=== PATIENT | female | born 1995 | race Caucasian/White ===

== ENCOUNTER 2023-04-12 11:39 | Outpatient (OUT) | payer OTHER, SELFPAY ==
[2023-04-12 12:21] LABS: Thyroid Stimulating Hormone 0.627 uIU/mL (0.358-3.740)
== END 2023-04-12 11:40 ==
LOC: LAB 11:42
PROVIDERS: PCP Family Medicine; Visit Provider Family Medicine
DX: R53.83 Other fatigue (principal)
CPT/HCPCS: 36415; 84443

== ENCOUNTER 2023-04-26 12:12 | Emergency (ER) | payer OTHER, SELFPAY ==
[2023-04-26] VITALS (17 sets, daily range): BP systolic 106–156; BP diastolic 61–99; PULSE 54–75; RESP 10–25; TEMP 36.6; O2SAT 99; BMI 43.3
--- NOTE | 2023-04-26 12:50 | ECG_ITS ---
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
--- NOTE | 2023-04-26 12:51 | ED_ITS ---
HPI - General Adult General Chief complaint: Chest Pain Stated complaint: HYPERTENSION Time Seen by Provider: 04/26/23 12:44 Source: patient Mode of arrival: walk-in Limitations: no limitations History of Present Illness HPI narrative: 27-year-old female presents for not feeling well. She's been on at approximately two weeks and her blood pressure has been running high for the past two days. She has a headache and has been dry heaving. She's had a little bit of diarrhea as well. She's been on Adipex before and had to be taken off of it. No fever or chest pain or palpitations. Related Data Home Medications Medication Instructions Recorded Confirmed sertraline 50 mg tablet (Zoloft) 25 mg PO DAILY 04/26/23 04/26/23 Allergies Allergy/AdvReac Type Severity Reaction Status Date / Time naproxen [From Aleve] Allergy Severe Verified 04/26/23 12:27 latex Allergy Verified 04/26/23 12:27 Review of Systems ROS Narrative A ten point review of systems is negative except as noted above. Constitutional Reports: fatigue PFSH PFSH Social History Smoking status: Current some day smoker Exam Narrative Exam Narrative: Nurses note and vital signs reviewed and patient is not hypoxic. General: The patient appears well and in no apparent distress. Patient is resting comfortably on cart. Skin: Warm, dry, no pallor noted. There is no rash noted. Head: Normocephalic, atraumatic Eye: Normal conjunctiva, no drainage Ears, Nose, Mouth, and Throat: oral mucosa is moist. Nares patent. Cardiovascular: Regular Rate and Rhythm Respiratory: Patient is in no distress, no accessory muscle use, lungs are clear to auscultation, no wheezing, rales or rhonchi Back: non-tender GI: no tenderness to palpation, no masses appreciated. No rebound, guarding, or rigidity noted. obese. Musculoskeletal: The patient has no evidence of calf tenderness, no pitting edema, symmetrical pulses noted bilaterally Neurological: A&O x4, normal speech Psychiatric: Cooperative Constitutional Vital Signs - 24 hr 04/26/23 12:23 04/26/23 13:02 04/26/23 13:10 Temperature 97.9 F Pulse Rate 62 58 L Pulse Rate [Monitor] 75 Respiratory Rate 16 12 17 Blood Pressure Blood Pressure [Right Arm] 139/99 H Pulse Oximetry 99 Oxygen Delivery Method Room Air 04/26/23 13:15 04/26/23 13:16 04/26/23 13:31 Temperature Pulse Rate 59 L 59 L 54 L Pulse Rate [Monitor] Respiratory Rate 17 10 L 12 Blood Pressure 106/61 131/83 H Blood Pressure [Right Arm] Pulse Oximetry Oxygen Delivery Method 04/26/23 13:48 04/26/23 13:50 04/26/23 13:54 Temperature Pulse Rate 69 59 L 60 Pulse Rate [Monitor] Respiratory Rate 15 18 13 Blood Pressure 137/79 H Blood Pressure [Right Arm] Pulse Oximetry Oxygen Delivery Method 04/26/23 13:54 04/26/23 13:54 04/26/23 14:01 Temperature Pulse Rate 62 60 54 L Pulse Rate [Monitor] Respiratory Rate 17 15 15 Blood Pressure 137/79 H 134/74 H Blood Pressure [Right Arm] Pulse Oximetry Oxygen Delivery Method 04/26/23 14:16 04/26/23 14:31 04/26/23 14:37 Temperature Pulse Rate 61 64 58 L Pulse Rate [Monitor] Respiratory Rate 17 20 25 H Blood Pressure 135/79 H 126/91 H 156/95 H Blood Pressure [Right Arm] Pulse Oximetry Oxygen Delivery Method 04/26/23 14:46 04/26/23 15:01 Temperature Pulse Rate 64 57 L Pulse Rate [Monitor] Respiratory Rate 18 14 Blood Pressure 126/77 H 144/89 H Blood Pressure [Right Arm] Pulse Oximetry Oxygen Delivery Method Course Vital Signs Vital signs: Vital Signs Temperature 97.9 F 04/26/23 12:23 Pulse Rate 75 04/26/23 12:23 Respiratory Rate 16 04/26/23 12:23 Blood Pressure 139/99 H 04/26/23 12:23 Pulse Oximetry 99 04/26/23 12:23 Oxygen Delivery Method Room Air 04/26/23 12:23 Temperature 97.9 F 04/26/23 12:23 Pulse Rate 57 L 04/26/23 15:01 Respiratory Rate 14 04/26/23 15:01 Blood Pressure 144/89 H 04/26/23 15:01 Pulse Oximetry 99 04/26/23 12:23 Oxygen Delivery Method Room Air 04/26/23 12:23 Medical Decision Making MDM Narrative Medical decision making narrative: her workup is negative. She's been having PVCs on the monitor. Her blood pressure has improved without intervention. My clinical impression is that her symptoms are due to the at a packs that she's been on for two weeks. She was instructed to discontinue the Anaprox. Treatment diagnosis and follow-up were discussed with the patient. Differential Diagnosis Differential Diagnosis: medication side effects, electrolyte imbalance, anxiety, PVCs Lab Data Lab results reviewed: Yes I reviewed the patient's lab results Labs: Lab Results 04/26/23 04/26/23 04/26/23 Range/Units 12:58 13:07 15:02 WBC 9.0 (4.0-11.0) 10^3/uL RBC 4.25 (4.20-5.40) 10^6/uL Hgb 13.3 (12.0-16.0) g/dL Hct 38.9 (36.0-48.0) % MCV 91.5 (81.0-99.0) fL MCH 31.3 (26.7-34.0) pg MCHC 34.2 (29.9-35.2) g/dL RDW 12.6 (11.0-15.0) % Plt Count 351 (150-450) 10^3/uL MPV 9.3 L (9.5-13.5) fL Neut % (Auto) 48.4 (43.0-75.0) % Lymph % (Auto) 42.0 (20.5-60.0) % [place] % (Auto) 6.7 (1.7-12.0) % Eos % (Auto) 2.4 (0.9-7.0) % Baso % (Auto) 0.2 (0.2-2.0) % Neut # (Auto) 4.3 (1.4-6.5) 10^3/uL Lymph # (Auto) 3.8 (1.2-3.8) 10^3/uL [place] # (Auto) 0.6 (0.3-0.8) 10^3/uL Eos # (Auto) 0.2 (0.0-0.7) 10^3/uL Baso # (Auto) 0.0 (0.0-0.1) 10^3/uL Abs Immat Gran (auto) 0.03 (0.00-0.03) 10^3/uL Imm/Tot Granulo (auto) 0.3 (0.0-0.5) % Sodium 137 (136-145) mmol/L Potassium 4.0 (3.5-5.1) mmol/L Chloride 102 (98-107) mmol/L Carbon Dioxide 30.0 (21.0-32.0) mmol/L Anion Gap 9.0 BUN 14.0 (7.0-18.0) mg/dL Creatinine 0.71 (0.55-1.02) mg/dL Est GFR ( Amer) >60 (>=60) Est GFR (Non-Af Amer) >60 (>=60) BUN/Creatinine Ratio 19.7 Glucose 99 (74-106) mg/dL Calcium 8.9 (8.5-10.1) mg/dL Urine Color Lt. yellow (YELLOW) Urine Clarity Clear (CLEAR) Urine pH 7.0 (5.0-9.0) Ur Specific [place] 1.010 (1.005-1.025) Urine Protein Negative (NEG/TRACE) mg/dL Urine Glucose (UA) Negative (NEGATIVE) mg/dL Urine Ketones Negative (NEGATIVE) mg/dL Urine Occult Blood Negative (NEGATIVE) Urine Nitrite Negative (NEGATIVE) Urine Bilirubin Negative (NEGATIVE) Urine Urobilinogen 0.2 (0.2-1.0) EU/dL Ur Leukocyte Esterase Negative (NEGATIVE) Urine HCG, Qual Negative (NEGATIVE) ECG Data Attestation: I personally reviewed and interpreted this ECG as follows: (EKG on my interpretation shows sinus rhythm and a PVC, rate is 62) Discharge Plan Discharge Chief Complaint: Chest Pain Clinical Impression: Medication side effects Patient Disposition: Home, Self-Care Time of Disposition Decision: 15:21 Condition: Good Mode of Transportation: Private Vehicle Prescriptions / Home Meds: No Action sertraline [Zoloft] 50 mg tablet 25 mg PO DAILY Instructions: Adverse Drug Reaction (ED) Additional Instructions: discontinue Adipex Stand Alone Forms: Portal Instructions Referrals: CHARBEL RODRIGUEZ [Primary Care Provider] - 1 week
[2023-04-26] MEDS: ONDANSETRON PF 4 MG/2 ML VIAL IV (13:14)
[2023-04-26 13:17] LABS: Basophils Percent Auto 0.2 % (0.2-2.0); Eosinophils Absolute Auto 0.2 10^3/uL (0.0-0.7); Eosinophils Percent Auto 2.4 % (0.9-7.0); Hematocrit 38.9 % (36.0-48.0); Hemoglobin 13.3 g/dL (12.0-16.0); Immature Granulocytes Abs Auto 0.03 10^3/uL (0.00-0.03); Immature Granulocytes Pct Auto 0.3 % (0.0-0.5); Lymphocytes Absolute Auto 3.8 10^3/uL (1.2-3.8); Mean Corpuscular HGB Conc 34.2 g/dL (29.9-35.2); Mean Corpuscular Hemoglobin 31.3 pg (26.7-34.0); Mean Corpuscular Volume 91.5 fL (81.0-99.0); Mean Platelet Volume 9.3 fL (9.5-13.5); Monocytes Absolute Auto 0.6 10^3/uL (0.3-0.8); Monocytes Percent Auto 6.7 % (1.7-12.0); Neutrophils Absolute Auto 4.3 10^3/uL (1.4-6.5); Neutrophils Percent Auto 48.4 % (43.0-75.0); Platelet Count 351 10^3/uL (150-450); Red Blood Count 4.25 10^6/uL (4.20-5.40); Red Cell Distribution Width 12.6 % (11.0-15.0)
[2023-04-26 13:35] LABS: BUN Creatinine Ratio 19.7; Calcium 8.9 mg/dL (8.5-10.1); Chloride 102 mmol/L (98-107); Estimated GFR (African America >60 (>=60); Estimated GFR (Non-African Ame >60 (>=60); Glucose 99 mg/dL (74-106); Sodium 137 mmol/L (136-145)
[2023-04-26 15:10] LABS: HCG Qualitative NEGATIVE (NEGATIVE)
[2023-04-26 15:16] LABS: Bilirubin Urine NEGATIVE (NEGATIVE); Blood Urine NEGATIVE (NEGATIVE); Clarity Urine CLEAR (CLEAR); Color Urine LT. YELLOW (YELLOW); Glucose Urine UA NEGATIVE (NEGATIVE); Ketones Urine NEGATIVE (NEGATIVE); Leukocyte Esterase Urine NEGATIVE (NEGATIVE); Nitrite Urine NEGATIVE (NEGATIVE); Protein Urine NEGATIVE (NEG/TRACE); Urine Microscopic Indicated NO; Urobilinogen Urine 0.2 EU/dL (0.2-1.0)
[2023-04-26] MEDS: KETOROLAC TROMETHAMINE 30 MG/ML VIAL IVP (15:38)
== END 2023-04-26 15:49 | disposition home or self-care (01) ==
PROVIDERS: Emergency Provider Emergency Medicine; PCP Family Medicine
DX: I10 Essential (primary) hypertension (principal); T50.995A Adverse effect of other drugs, medicaments and biological substances, initial encounter
CPT/HCPCS: 36415; 80048; 81003; 84703; 85025; 93005; 96374; 96375; 99285

== ENCOUNTER 2023-05-29 14:00 | Outpatient (OUT) | payer OTHER, SELFPAY ==
--- NOTE | 2023-05-29 14:33 | XR_ITS ---
The [address] [address] Patient Name: RUSSELL WELLS MRN: [id number] date: 1995 Sex: F Assigned Patient Location: [facility] Current Patient Location: Accession/Order Number: [id number] Exam Date: 05/29/2023 14:33 Report Date: 05/30/2023 06:22 At the request of: ROSE RIVERA Procedure: XR foot JUDI min 3V EXAMINATION: XR foot JUDI min 3V, XR ankle JUDI min 3V HISTORY: BILATERAL FOOT PAIN COMPARISON: No relevant comparison available. FINDINGS: RIGHT FINDINGS: BONES: Normal. No significant arthropathy or acute abnormality. Minimal Enthesopathic spurring plantar calcaneus SOFT TISSUES: Negative. No visible soft tissue swelling. OTHER: Negative. LEFT FINDINGS: BONES: Normal. No significant arthropathy or acute abnormality. Minimal enthesopathic spurring plantar calcaneus SOFT TISSUES: Negative. No visible soft tissue swelling. OTHER: Negative. XR/XR foot JUDI min 3V IMPRESSION: RIGHT CONCLUSION: No acute abnormality LEFT CONCLUSION: No acute abnormality Electronically authenticated by: CHARBEL DAMON Date: 05/30/2023 06:22
--- NOTE | 2023-05-29 14:33 | XR_ITS ---
The [address] [address] Patient Name: RUSSELL WELLS MRN: [id number] date: 1995 Sex: F Assigned Patient Location: [facility] Current Patient Location: Accession/Order Number: [id number] Exam Date: 05/29/2023 14:33 Report Date: 05/30/2023 06:22 At the request of: ROSE RIVERA Procedure: XR ankle JUDI min 3V EXAMINATION: XR foot JUDI min 3V, XR ankle JUDI min 3V HISTORY: BILATERAL FOOT PAIN COMPARISON: No relevant comparison available. FINDINGS: RIGHT FINDINGS: BONES: Normal. No significant arthropathy or acute abnormality. Minimal Enthesopathic spurring plantar calcaneus SOFT TISSUES: Negative. No visible soft tissue swelling. OTHER: Negative. LEFT FINDINGS: BONES: Normal. No significant arthropathy or acute abnormality. Minimal enthesopathic spurring plantar calcaneus SOFT TISSUES: Negative. No visible soft tissue swelling. OTHER: Negative. XR/XR ankle JUDI min 3V IMPRESSION: RIGHT CONCLUSION: No acute abnormality LEFT CONCLUSION: No acute abnormality Electronically authenticated by: CHARBEL DAMON Date: 05/30/2023 06:22
== END 2023-05-29 14:01 | disposition home or self-care (01) ==
LOC: RAD 14:00
PROVIDERS: PCP Family Medicine; Visit Provider Podiatrist Foot & Ankle Surgery
DX: M25.571 Pain in 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 (principal); M25.572 Pain in left ankle and joints of left foot
CPT/HCPCS: 73610; 73630

== ENCOUNTER 2023-06-20 12:55 | Emergency (ER) | payer OTHER, SELFPAY ==
[2023-06-20 13:14] VITALS: BP 144/85; PULSE 83; RESP 16; TEMP 36.8; O2SAT 99; BMI 43.3
--- NOTE | 2023-06-20 14:28 | PC.NURSE ---
low abd cramping and back pain remains, no bleeding and pt reports unsure of how far
--- NOTE | 2023-06-20 14:37 | PC.NURSE ---
urine collected and taken to lab
[2023-06-20 14:44] LABS: HCG Quantitative 104 mIU/mL
[2023-06-20 14:45] LABS: Bilirubin Urine NEGATIVE (NEGATIVE); Blood Urine NEGATIVE (NEGATIVE); Clarity Urine CLEAR (CLEAR); Color Urine LT. YELLOW (YELLOW); Glucose Urine UA NEGATIVE (NEGATIVE); Ketones Urine NEGATIVE (NEGATIVE); Leukocyte Esterase Urine NEGATIVE (NEGATIVE); Nitrite Urine NEGATIVE (NEGATIVE); Protein Urine NEGATIVE (NEG/TRACE); Urobilinogen Urine 0.2 EU/dL (0.2-1.0)
[2023-06-20 14:48] LABS: Urine Microscopic Indicated NO
[2023-06-20] MEDS: ACETAMINOPHEN 500 MG TABLET 1000 MG PO (15:05)
--- NOTE | 2023-06-20 15:43 | ED_ITS ---
HPI - Female Genitourinary General Chief complaint: Urogenital-Female Stated complaint: LOWER BACK PAIN, UNSURE OF HOW MANY WEEKS Time Seen by Provider: 06/20/23 13:25 Source: patient Mode of arrival: walk-in History of Present Illness HPI Narrative: patient found out she was just recently and estimates she is about 3-4 weeks along. She developed intense low back paina nd pelvic pain last week. She had 2 visits with her [employer] MERCHANDISER at [facility] and had HCG quant= 99 followed by HCG Quant = 113 2 days later. She now presents to our ED for evaluation because of the pain. No recent intercourse. No tyleno taken for the pain. No vaginal bleeding or discharge. No urinary symptoms. She has an appointment with her OB in 4 days. Related Data Home Medications Medication Instructions Recorded Confirmed sertraline 50 mg tablet (Zoloft) 25 mg PO DAILY 04/26/23 04/26/23 Allergies Allergy/AdvReac Type Severity Reaction Status Date / Time naproxen [From Aleve] Allergy Severe Verified 04/26/23 12:27 latex Allergy Verified 04/26/23 12:27 [facility] Social History Smoking status: Current some day smoker Exam Narrative Exam Narrative: Nurses notes and vital signs reviewed and patient is not hypoxic. afebrile General: Well-appearing, emotional. Skin: Warm, dry, no pallor noted. Head: Normocephalic, atraumatic. Eye: Pupils are equal, round and EOMI. No scleral icterus. Cardiovascular: Regular Rate and Rhythm without murmur, gallop or rub. Respiratory: No accessory muscle use or respiratory distress. Lungs are clear to auscultation, no wheezing, rales or rhonchi Back: No CVA tenderness Musculoskeletal: normal ROM GI: Abdomen is soft, non-distended. Normal bowel sounds. No masses appreciated. Suprapubic tenderness to palpation. No rebound, guarding, or rigidity noted. Neurological: A&O x4. No cranial nerve dysfunction observed. No truncal ataxia. Moves all extremities. Sensation intact. Psychiatric: Cooperative and interactive. Normal mood and affect. Constitutional Vital Signs, click to edit/add: Last Vital Signs Temp 98.3 F 06/20/23 13:14 Pulse 83 06/20/23 13:14 Resp 16 06/20/23 13:14 BP 144/85 H 06/20/23 13:14 Pulse Ox 99 06/20/23 13:14 O2 Del Method Room Air 06/20/23 13:14 Course Vital Signs Vital signs: Vital Signs Temperature 98.3 F 06/20/23 13:14 Pulse Rate 83 06/20/23 13:14 Respiratory Rate 16 06/20/23 13:14 Blood Pressure 144/85 H 06/20/23 13:14 Pulse Oximetry 99 06/20/23 13:14 Oxygen Delivery Method Room Air 06/20/23 13:14 Temperature 98.3 F 06/20/23 13:14 Pulse Rate 83 06/20/23 13:14 Respiratory Rate 16 06/20/23 13:14 Blood Pressure 144/85 H 06/20/23 13:14 Pulse Oximetry 99 06/20/23 13:14 Oxygen Delivery Method Room Air 06/20/23 13:14 MDM - Female Genitourinary MDM Narrative Medical decision making narrative: HCG Quant = 104. Patient informed of results and given condolences. Suspect miscarriage. She was told she needs to see her OB in 4 days as scheduled. Lab Data Attestation: I reviewed the patient's lab results. Labs: Lab Results 06/20/23 06/20/23 Range/Units 14:18 14:35 HCG, Quant 104 mIU/mL Urine Color Lt. yellow (YELLOW) Urine Clarity Clear (CLEAR) Urine pH 6.0 (5.0-9.0) Ur Specific [place] 1.020 (1.005-1.025) Urine Protein Negative (NEG/TRACE) mg/dL Urine Glucose (UA) Negative (NEGATIVE) mg/dL Urine Ketones Negative (NEGATIVE) mg/dL Urine Occult Blood Negative (NEGATIVE) Urine Nitrite Negative (NEGATIVE) Urine Bilirubin Negative (NEGATIVE) Urine Urobilinogen 0.2 (0.2-1.0) EU/dL Ur Leukocyte Esterase Negative (NEGATIVE) Blood Type O Positive Discharge Plan Discharge Chief Complaint: Urogenital-Female Clinical Impression: demise Patient Disposition: Home, Self-Care Time of Disposition Decision: 15:47 Prescriptions / Home Meds: No Action sertraline [Zoloft] 50 mg tablet 25 mg PO DAILY Instructions: Threatened Miscarriage (ED) Stand Alone Forms: Portal Instructions Referrals: CHARBEL RODRIGUEZ [Primary Care Provider] - 1 week
== END 2023-06-20 16:08 | disposition home or self-care (01) ==
PROVIDERS: Physician Assistant; Emergency Provider Emergency Medicine; PCP Family Medicine
DX: O02.1 Missed abortion (principal); F17.210 Nicotine dependence, cigarettes, uncomplicated
CPT/HCPCS: 36415; 81003; 84702; 86900; 86901; 99283

== ENCOUNTER 2023-06-24 09:09 | Outpatient (OUT) | payer OTHER, SELFPAY ==
[2023-06-24 10:58] LABS: HCG Quantitative 144 mIU/mL
== END 2023-06-24 09:10 | disposition home or self-care (01) ==
LOC: LAB 09:11
PROVIDERS: PCP Family Medicine; Visit Provider Obstetrics & Gynecology
DX: Z32.00 Encounter for pregnancy test, result unknown (principal)
CPT/HCPCS: 36415; 84702

== ENCOUNTER 2023-07-05 08:52 | Outpatient (OUT) | payer OTHER, SELFPAY ==
--- NOTE | 2023-07-05 | XR_ITS ---
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 FINDINGS: ORBITS: Negative for a metallic foreign body. OTHER: Negative. XR/XR foreign body eye IMPRESSION: No metallic foreign body within the orbits. Electronically authenticated by: NICOLE MILLARD Date: 07/05/2023 09:41
--- NOTE | 2023-07-05 09:40 | MR_ITS ---
The [place] [id number] Patient Name: RUSSELL WELLS MRN: [id number] date: 1995 Sex: F Assigned Patient Location: [facility] Current Patient Location: [facility] Accession/Order Number: [id number] Exam Date: 07/05/2023 09:40 Report Date: 07/05/2023 18:55 At the request of: ROSE RIVERA Procedure: MR ankle RT wo con EXAM: MR ankle RT wo con HISTORY: Osteochondral Defect COMPARISON: None. TECHNIQUE: Multiplanar, multi sequential MRI sequences were performed. FINDINGS: As demonstrated on the prior x-ray, there is an osteochondral defect of the medial talar dome shoulder measuring measuring 7.2 mm transverse x 13 mm AP x 3.7 mm craniocaudal on this MRI (sagittal 7 and coronal 11). Mild edema of the adjacent subchondral bone. The remainder of the visualized articular surfaces exhibit no additional chondral or osteochondral irregularity. No fracture, dislocation or subluxation. Small reactive talocrural joint effusion. The superficial subcutaneous soft tissues are free of edema, hematoma, mass or cyst. The tarsal tunnel and vianney pedis exhibit no edema, hematoma, mass or cyst. Chronic cystic change within the talus within the roof of the sinus tarsi. The Interosseous talocalcaneal and cervical ligaments along with the roots of the inferior extensor retinaculum are unremarkable. The anterior talofibular, calcaneofibular, posterior talofibular, anterior and posterior inferior tibiofibular, syndesmotic, intermalleolar, deltoid and spring ligamentous complexes exhibit no discrete thickening, tear or edema. The posterior tibial, flexor digitorum longus, flexor hallucis longus, peroneus longus, peroneus brevis and anterior tendons exhibit no thickening, tear, edema or tenosynovial collections. The Achilles tendon and plantar aponeurosis exhibit normal signal and morphology. No muscle edema, hematoma, atrophy or fatty infiltration. MR/MR ankle RT wo con IMPRESSION: 1. 13 x 7.2 x 3.7 mm osteochondral defect of the medial talar dome shoulder. 2. Chronic cystic change within the talus roof of the sinus tarsi. Electronically authenticated by: CHARBEL TAPIA Date: 07/05/2023 18:55
== END 2023-07-05 08:53 | disposition home or self-care (01) ==
LOC: RAD 08:53
PROVIDERS: PCP Family Medicine; Visit Provider Podiatrist Foot & Ankle Surgery
DX: M21.961 Unspecified acquired deformity of right lower leg (principal); M95.8 Other specified acquired deformities of musculoskeletal system
CPT/HCPCS: 70030; 73721

== ENCOUNTER 2024-01-13 20:33 | Emergency (ER) | payer OTHER, SELFPAY ==
[2024-01-13 20:36] VITALS: BP 141/98; PULSE 99; RESP 20; TEMP 36.6; O2SAT 98; BMI 45.4
[2024-01-13] MEDS: MORPHINE SULFATE 2 MG/ML SYRINGE IV ×2 (21:08→22:16)
[2024-01-13] MEDS: ONDANSETRON PF 4 MG/2 ML VIAL IV (21:08)
[2024-01-13] MEDS: 0.9 % SODIUM CHLORIDE 1,000 ML 999 ML IV (21:08)
[2024-01-13] MEDS: CLINDAMYCIN PHOSPHATE/D5W 600 MG/50 ML PIGGYBACK 100 MG IV (21:08)
--- NOTE | 2024-01-13 21:09 | ED.DENTAL1 ---
HPI - Dental/Oral General Chief complaint: Dental/Oral Stated complaint: Dental Pain Time Seen by Provider: 01/13/24 20:40 Source: patient Mode of arrival: walk-in Limitations: no limitations History of Present Illness HPI Narrative: 28-year-old female presents to the emergency department complaint of dental pain. Locates to the right wisdom tooth of the lower jaw. Onset Saturday with progressive worsening into today. Was seen in urgent care over the weekend, prescribed amoxicillin. States pain worsening today. There is associated tenderness. Incidentally, patient is 24 weeks . Denies any abdominal pain, cramping, vaginal bleeding. Denies any fever, chills. Quality:?as above Severity:?moderate Timing:?as above, constant, worsening Context: Normal setting and activity? Modifying factors:?pain worse with palpation Associated symptoms: swelling Related Data Home Medications ?Medication ?Instructions ?Recorded ?Confirmed sertraline 50 mg tablet (Zoloft) 25 mg PO DAILY 04/26/23 01/13/24 Allergies Allergy/AdvReac Type Severity Reaction Status Date / Time naproxen [From Aleve] Allergy Severe Verified 01/13/24 20:40 latex Allergy Verified 01/13/24 20:40 Review of Systems ROS Narrative CONST: Denies fever, chills HENT: +dental problem, facial swelling.? Denies congestion, ear pain, mouth sores, rhinorrhea EYES: Denies eye discharge, eye pain SKIN: Denies color change PFSH PFSH Social History Smoking status: Current some day smoker Exam Narrative Exam Narrative: Vital signs noted Nurses notes reviewed CONST: Nontoxic, well appearing, well nourished, in no distress.? No diaphoresis.?? HENT: normocephalic, atraumatic.? Normal hearing.? Normal appearing ext ears, canals, TM's.? No nasal discharge.? MOUTH/THROAT: Patient has tenderness to the tooth as well as surrounding gingiva, right lower molar. There is some increased inflammation, swelling noted around the tooth. Patient complains of associated facial tenderness. She also has tenderness under the right side of her jaw, submental, submandibular regions. No erythema. There is tenderness to the floor of her mouth on the right. No elevation of the floor of the mouth. No fluctuance.? No palpable abscess, trismus.? Patient maintaining own secretions.? Moist mucous membranes, no exudate.? EYES: clear, no injections, discharge NECK: supple, no lymphadenopathy NEURO: A&Ox3 SKIN: warm, dry PSYCHIATRIC: normal mood and affect Constitutional Vital Signs, click to edit/add: Last Vital Signs Temp 98 F 01/13/24 20:36 Pulse 80 01/13/24 23:43 BP 120/77 01/13/24 23:43 Pulse Ox 97 01/13/24 23:43 O2 Del Method Room Air 01/13/24 23:43 Course Vital Signs Vital signs: Vital Signs Temperature 98 F 01/13/24 20:36 Pulse Rate 99 H 01/13/24 20:36 Blood Pressure 141/98 H 01/13/24 20:36 Pulse Oximetry 98 01/13/24 20:36 Oxygen Delivery Method Room Air 01/13/24 20:36 Temperature 98 F 01/13/24 20:36 Pulse Rate 80 01/13/24 23:43 Blood Pressure 120/77 01/13/24 23:43 Pulse Oximetry 97 01/13/24 23:43 Oxygen Delivery Method Room Air 01/13/24 23:43 MDM - Dental/Oral MDM Narrative Medical decision making narrative: 28-year-old female, 24 weeks , presents to the emergency department with dental pain. Locates to the right lower wisdom tooth. Worsening since this past Saturday. Was evaluated at urgent care, started on amoxicillin. Pain intolerable. Denies any abdominal pain, contractions, bleeding. Denies known fever, chills. On arrival, she was a little hypertensive, likely pain related as subsequent blood pressures were improved. Afebrile. No other concerning findings and vital signs. On exam, uncomfortable appearing, tearful patient. Nontoxic. She has tenderness to the right wisdom tooth and surrounding gingiva which appears somewhat inflamed, swollen. No palpable abscess. Of concern she has tenderness to the right floor of her mouth, right submandibular, submental region. No overlying erythema present. No elevation of the floor of her mouth. With physical exam findings and level of pain, concern raised for deep soft tissue infection such as Jonathan's angina. She is not drooling. No trismus. Maintaining own secretions. IV pain medications administered, vital signs monitored. Labs reveal leukocytosis 13.4. She is a little anemic at 10.83.5. No thrombocytopenia present. Nursing had some difficulty obtaining heart tones due to constant, persistent movement of the fetus. care transferred at end of PA shift. CT pending. CT with findings of lymphadenopathy. Patient informed of the above. Discharged home with a prescription for clindamycin Lab Data Attestation: I reviewed the patient's lab results. Labs: Lab Results 01/13/24 Range/Units 21:01 WBC 13.4 H (4.0-11.0) 10^3/uL RBC 3.53 L (4.20-5.40) 10^6/uL Hgb 10.8 L (12.0-16.0) g/dL Hct 33.5 L (36.0-48.0) % MCV 94.9 (81.0-99.0) fL MCH 30.6 (26.7-34.0) pg MCHC 32.2 (29.9-35.2) g/dL RDW 14.0 (11.0-15.0) % Plt Count 377 (150-450) 10^3/uL MPV 9.5 (9.5-13.5) fL Neut % (Auto) 66.8 (43.0-75.0) % Lymph % (Auto) 23.9 (20.5-60.0) % Villalba % (Auto) 7.0 (1.7-12.0) % Eos % (Auto) 0.7 L (0.9-7.0) % Baso % (Auto) 0.3 (0.2-2.0) % Neut # (Auto) 8.9 H (1.4-6.5) 10^3/uL Lymph # (Auto) 3.2 (1.2-3.8) 10^3/uL Villalba # (Auto) 0.9 H (0.3-0.8) 10^3/uL Eos # (Auto) 0.1 (0.0-0.7) 10^3/uL Baso # (Auto) 0.0 (0.0-0.1) 10^3/uL Abs Immat Gran (auto) 0.18 H (0.00-0.03) 10^3/uL Imm/Tot Granulo (auto) 1.3 H (0.0-0.5) % Sodium 136 (136-145) mmol/L Potassium 3.4 L (3.5-5.1) mmol/L Chloride 101 (98-107) mmol/L Carbon Dioxide 24.7 (21.0-32.0) mmol/L Anion Gap 13.7 BUN 6.0 L (7.0-18.0) mg/dL Creatinine 0.58 (0.55-1.02) mg/dL Est GFR ( Amer) >60 (>=60) Est GFR (Non-Af Amer) >60 (>=60) BUN/Creatinine Ratio 10.3 Glucose 102 (74-106) mg/dL Calcium 8.8 (8.5-10.1) mg/dL Imaging Data Chest x-ray: Radiologist's impression: ITS Impressions Soft Tissue Neck CT 01/13/24 22:30 IMPRESSION: 1. Bilateral submandibular and level 2 cervical lymphadenopathy. This may be reactive. 2. 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 Electronically authenticated by: CELESTINO RUBIN Date: 01/13/2024 23:07 Discharge Plan Discharge Stand Alone Forms: Portal Instructions Chief Complaint: Dental/Oral Clinical Impression: Dental abscess Patient Disposition: Home, Self-Care Prescriptions / Home Meds: No Action sertraline [Zoloft] 50 mg tablet 25 mg PO DAILY Hold Instructions: Print Language: Canadian Instructions: Dental Abscess (ED) Additional Instructions: follow up with your dentist this week Referrals: CHARBEL RODRIGUEZ [Primary Care Provider] - 1 week Discharge Date/Time: 01/13/24 23:44
[2024-01-13 21:12] LABS: Basophils Percent Auto 0.3 % (0.2-2.0); Eosinophils Absolute Auto 0.1 10^3/uL (0.0-0.7); Eosinophils Percent Auto 0.7 % (0.9-7.0); Hematocrit 33.5 % (36.0-48.0); Hemoglobin 10.8 g/dL (12.0-16.0); Immature Granulocytes Abs Auto 0.18 10^3/uL (0.00-0.03); Immature Granulocytes Pct Auto 1.3 % (0.0-0.5); Lymphocytes Absolute Auto 3.2 10^3/uL (1.2-3.8); Lymphocytes Percent Auto 23.9 % (20.5-60.0); Mean Corpuscular HGB Conc 32.2 g/dL (29.9-35.2); Mean Corpuscular Hemoglobin 30.6 pg (26.7-34.0); Mean Corpuscular Volume 94.9 fL (81.0-99.0); Mean Platelet Volume 9.5 fL (9.5-13.5); Monocytes Absolute Auto 0.9 10^3/uL (0.3-0.8); Neutrophils Absolute Auto 8.9 10^3/uL (1.4-6.5); Neutrophils Percent Auto 66.8 % (43.0-75.0); Platelet Count 377 10^3/uL (150-450); Red Blood Count 3.53 10^6/uL (4.20-5.40); White Blood Count 13.4 10^3/uL (4.0-11.0)
[2024-01-13 21:19] LABS: Anion Gap 13.7; BUN Creatinine Ratio 10.3; Calcium 8.8 mg/dL (8.5-10.1); Carbon Dioxide 24.7 mmol/L (21.0-32.0); Chloride 101 mmol/L (98-107); Estimated GFR (African America >60 (>=60); Estimated GFR (Non-African Ame >60 (>=60); Glucose 102 mg/dL (74-106); Potassium 3.4 mmol/L (3.5-5.1); Sodium 136 mmol/L (136-145)
[2024-01-13 21:24] VITALS: BP 137/81
[2024-01-13] MEDS: DEXAMETHASONE SOD PHOS 10 MG/ML VIAL IV (22:04)
[2024-01-13] MEDS: BENZOCAINE 30 ML, lidocaine HCL 15 ML MM (22:05)
[2024-01-13 22:20] VITALS: BP 134/91; PULSE 84; RESP 14; O2SAT 99
--- NOTE | 2024-01-13 22:30 | CT_ITS ---
The [address] [address] Patient Name: RUSSELL WELLS MRN: [id number] date: 1995 Sex: F Assigned Patient Location: ER Current Patient Location: Accession/Order Number: [id number] Exam Date: 01/13/2024 22:30 Report Date: 01/13/2024 23:07 At the request of: LEONCIO STOKES Procedure: CT soft tissue neck w con EXAM: CT soft tissue neck w con HISTORY: Jonathan's angina, abscess COMPARISON: None. TECHNIQUE: IV contrast-enhanced CT imaging of the neck. This CT exam was performed using one or more of the following dose reduction techniques: Automated exposure control, adjustment of the mA and/or KV according to patient size, or use of iterative reconstruction technique. Unless otherwise stated, incidental findings do not require dedicated follow-up imaging. FINDINGS: The skull base is intact. The visualized paranasal sinuses and mastoid air cells are clear. The parotid glands are symmetric. The left submandibular gland is normal. The right submandibular gland is congenitally or surgically absent. There are numerous shotty submandibular lymph nodes bilaterally. The nasopharynx, oropharynx, hypopharynx, larynx, and trachea are all patent and symmetric. There is no abnormal postcontrast enhancement. The thyroid enhances homogeneously. There are shotty cervical lymph nodes throughout the neck bilaterally. The largest of these is a left level 2 node measuring 2.3 x 1.1 cm. A dominant right level 2 node measures 1.7 x 1.0 cm. The bones are intact without acute abnormality. CT/CT soft tissue neck w con IMPRESSION: 1. Bilateral submandibular and level 2 cervical lymphadenopathy. This may be reactive. 2. 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 Electronically authenticated by: CELESTINO RUBIN Date: 01/13/2024 23:07
[2024-01-13] MEDS: CLINDAMYCIN HCL 150 MG CAPSULE 300 MG PO (23:39)
[2024-01-13] MEDS: MAALOX (MAG HYDROX/ALUMINUM HYD/SIMETH) 30 ML ORAL.SUSP PO (23:40)
[2024-01-13 23:43] VITALS: BP 120/77; PULSE 80; RESP 16; O2SAT 97
== END 2024-01-13 23:44 | disposition home or self-care (01) ==
PROVIDERS: Physician Assistant; Emergency Provider Internal Medicine; PCP Family Medicine
DX: O99.612 Diseases of the digestive system complicating pregnancy, second trimester (principal); K04.7 Periapical abscess without sinus; O99.332 Smoking (tobacco) complicating pregnancy, second trimester; F17.210 Nicotine dependence, cigarettes, uncomplicated; Z3A.24 24 weeks gestation of pregnancy; Z79.899 Other long term (current) drug therapy
CPT/HCPCS: 36415; 70491; 80048; 85025; 96365; 96375; 96376; 99285; J1100; Q9967

== ENCOUNTER 2024-03-11 16:37 | Observation (INO) | payer OTHER, SELFPAY ==
[2024-03-11 17:04] VITALS: BP 99/57; PULSE 82; TEMP 36.7
[2024-03-11] MEDS: ACETAMINOPHEN 300 MG/ 30 MG CODEINE TABLET 2 TAB PO (17:41)
[2024-03-11 18:02] VITALS: BP 143/69; PULSE 82
[2024-03-11 18:12] VITALS: BP 141/75; PULSE 92
[2024-03-11 18:22] LABS: Bilirubin Urine NEGATIVE (NEGATIVE); Blood Urine NEGATIVE (NEGATIVE); Clarity Urine CLEAR (CLEAR); Color Urine YELLOW (YELLOW); Glucose Urine UA NEGATIVE (NEGATIVE); Ketones Urine TRACE mg/dL (NEGATIVE); Leukocyte Esterase Urine NEGATIVE (NEGATIVE); Nitrite Urine NEGATIVE (NEGATIVE); Protein Urine TRACE mg/dL (NEG/TRACE); Urobilinogen Urine 0.2 EU/dL (0.2-1.0); pH Urine 7.5 (5.0-9.0)
[2024-03-11 18:24] LABS: Urine Microscopic Indicated NO
[2024-03-11 18:30] VITALS: BP 94/62; TEMP 36.8
[2024-03-11 18:51] LABS: Basophils Percent Auto 0.1 % (0.2-2.0); Eosinophils Absolute Auto 0.1 10^3/uL (0.0-0.7); Eosinophils Percent Auto 0.6 % (0.9-7.0); Hematocrit 30.2 % (36.0-48.0); Hemoglobin 9.9 g/dL (12.0-16.0); Immature Granulocytes Abs Auto 0.07 10^3/uL (0.00-0.03); Immature Granulocytes Pct Auto 0.7 % (0.0-0.5); Lymphocytes Absolute Auto 2.9 10^3/uL (1.2-3.8); Lymphocytes Percent Auto 29.1 % (20.5-60.0); Mean Corpuscular HGB Conc 32.8 g/dL (29.9-35.2); Mean Corpuscular Hemoglobin 30.6 pg (26.7-34.0); Mean Corpuscular Volume 93.2 fL (81.0-99.0); Mean Platelet Volume 9.9 fL (9.5-13.5); Monocytes Absolute Auto 0.6 10^3/uL (0.3-0.8); Monocytes Percent Auto 6.3 % (1.7-12.0); Neutrophils Absolute Auto 6.2 10^3/uL (1.4-6.5); Neutrophils Percent Auto 63.2 % (43.0-75.0); Platelet Count 345 10^3/uL (150-450); Red Blood Count 3.24 10^6/uL (4.20-5.40); Red Cell Distribution Width 14.1 % (11.0-15.0); White Blood Count 9.9 10^3/uL (4.0-11.0)
[2024-03-11 19:01] LABS: Anion Gap 10.3; Carbon Dioxide 25.7 mmol/L (21.0-32.0); Chloride 103 mmol/L (98-107); Sodium 135 mmol/L (136-145)
[2024-03-11 19:11] VITALS: BP 100/54; PULSE 72
== END 2024-03-11 19:40 | disposition home or self-care (01) ==
LOC: FBC 16:39
PROVIDERS: Admitting Provider Obstetrics & Gynecology; PCP Family Medicine; Visit Provider Obstetrics & Gynecology
DX: O26.899 Other specified pregnancy related conditions, unspecified trimester (principal); R51.9 Headache, unspecified; R06.02 Shortness of breath; H53.8 Other visual disturbances; O34.219 Maternal care for unspecified type scar from previous cesarean delivery; Z3A.00 Weeks of gestation of pregnancy not specified
CPT/HCPCS: 36415; 59025; 80051; 81003; 85025; G0378; G0379

== ENCOUNTER 2024-03-16 11:40 | Outpatient (OUT) | payer OTHER, SELFPAY ==
--- OUTSIDE RECORDS SUMMARY | 2024-03-16 11:50 | XMS_ITS | CCD ---
Author Organization [facility] Care Team Providers Care Director Of Surgery Name Role Phone DO Charbel Rodriguez Primary Care Provider ANGELY Yee Emergency Provider [phone] Charbel Rodriguez DO Primary Care Provider [phone] Zainab, Charbel Jerez Unavailable Charbel Rodriguez Unavailable TESSA SANCHEZ Admitting Unavailable TESSA SANCHEZ Attending Unavailable CHARBEL RODRIGUEZ Primary Care Unavailable Charbel Rodriguez DO Primary Care Provider PocCharbel dior Unavailable MICHAEL, DR BARGER Primary Care Unavailable HAY, DR ADAME Admitting Unavailable HAY, DR ADAME Attending Unavailable HAY, DR ADAME Consulting Unavailable MICHAEL, DR BARGER Admitting Unavailable GIRROSEY, DR BARGER Attending Unavailable GIRROSEY, DR BARGER Primary Care Unavailable GIRROSEY, DR BARGER Consulting Unavailable GIRROSEY, DR BARGER Admitting Unavailable GIRROSEY, DR BARGER Attending Unavailable GIRROSEY, DR BARGER Primary Care Unavailable GIRROSEY, DR BARGER Primary Care Unavailable CHRISTIANO PARKINSON Admitting Unavailable CHRISTIANO PARKINSON Attending Unavailable HEATHER CHAND Consulting Unavailable CHARBEL TAPIA Consulting Unavailable Ronda Guevara Unavailable CHARBEL RODRIGUEZ Primary Care Unavailable CHARBEL RODRIGUEZ Primary Care Unavailable CHARBEL RODRIGUEZ Primary Care Unavailable CHARBEL RODRIGUEZ Primary Care Unavailable TESSA SANCHEZ Attending Unavailable CHARBEL RODRIGUEZ Primary Care Unavailable TESSA SANCHEZ Attending Unavailable CHARBEL RODRIGUEZ Primary Care Unavailable CHARBEL RODRIGUEZ Primary Care Unavailable TESSA SANCHEZ Attending Unavailable CHARBEL RODRIGUEZ Primary Care Unavailable CHARBEL RODRIGUEZ Primary Care Unavailable TESSA SANCHEZ Attending Unavailable TESSA SANCHEZ Referring Unavailable CHARBEL RODRIGUEZ Primary Care Unavailable CHARBEL RODRIGUEZ Primary Care Unavailable TESSA SANCHEZ Attending Unavailable CHARBEL RODRIGUEZ Primary Care Unavailable TESSA SANCHEZ Attending Unavailable CHARBEL RODRIGUEZ Primary Care Unavailable CHARBEL COSBY Referring Unavailable TESSA SANCHEZ Attending Unavailable TESSA SANCHEZ Referring Unavailable CHARBEL RODRIGUEZ Primary Care Unavailable CHARBEL RODRIGUEZ Primary Care Unavailable Charbel Rodriguez Primary Care Unavailable Constantine Yee Attending Unavailable Constantine Yee Admitting Unavailable Charbel Rodriguez DO Primary Care Provider [phone] VISCI, SONIA A Attending Unavailable VISCI, SONIA A Attending Unavailable VISCI, SONIA A Attending Unavailable KIEPERTJOHNSON Attending Unavailable VISCI, SONIA A Attending Unavailable VISCI, SONIA A Referring Unavailable VISCI, SONIA A Referring Unavailable VISCI, SONIA A Attending Unavailable VISCI, SONIA A Referring Unavailable VISCI, SONIA A Attending Unavailable VISCI, SONIA A Attending Unavailable VISCI, SONIA A Referring Unavailable Allergies Allergy Classification Reported Allergen(s) Allergy Type Date of Onset Reaction(s) Facility (20 sources) Latex; Translations: [Latex] Propensity to adverse reactions 2 Rash, Rash, Blisters, rash,blisters [facility] (12 sources) Naproxen; Translations: [NAPROXEN] Drug Allergy 8 [facility] (14 sources) Naproxen; Translations: [Aleve] Drug Allergy 1 [facility] Repository (13 sources) Seasonal allergy Propensity to adverse reactions Unknown [facility] [employer] Other (13 sources) Tomato Products Propensity to adverse reactions stomach upset [employer] [facility] [employer] Other (1 source) natural latex rubber Drug allergy (disorder) 1 [facility] Repository (8 sources) Seasonale Drug allergy Unknown [employer] [facility] [employer] Other (8 sources) Tomatoes Drug allergy stomach upset [employer] Other (5 sources) Phentermine Drug Allergy chest pain/ elevated BP [employer] [facility] [employer] Other Medications Current Medications Medication Drug Class(es) Dates Sig (Normalized) Sig (Original) brompheniramine maleate 0.4 mg/ml / dextromethorphan hydrobromide 2 mg/ml / pseudoephedrine hydrochloride 6 mg/ml oral solution (5 sources) alpha-Adrenergic Agonist, Uncompetitive V-wovpke-Y-aspartat e Receptor Antagonist, Sigma-1 Agonist Start: 12-07-19 take 10 mL by mouth every six hours Kvjrozhnx-Smjlbybe-WJ 30-2-10 MG/5ML 10 mL Orally every 6 hours for 5 days Nov, Active losartan potassium 25 mg oral tablet (1 source) Angiotensin 2 Receptor Freedom Start: 04-26-20 take 1 tablet by mouth every twenty-four hours Losartan Potassium 25 MG 1 tablet Orally Once a day for 30 days Mar, Active meloxicam 15 mg oral tablet (3 sources) Nonsteroidal Anti-inflammatory Drug Start: 06-03-20 take 1 tablet by mouth every twenty-four hours Meloxicam 15 MG 1 tablet Orally Once a day May, Active methylPREDNISolone 4 mg oral tablet (5 sources) Corticosteroid Start: 12-07-19 methylPREDNISolone 4 MG as directed Orally for daily dose take half with breakfast, half with dinner for 6 days Nov, Active omeprazole 20 mg delayed release oral capsule (20 sources) Proton Pump Inhibitor Start: 07-21-20 End: 08-14-20 take 1 capsule by mouth once daily Omeprazole 20 mg 1 capsule 30 minutes before morning meal Orally Once a day Jun, Active Comment on above: Take 20 mg by mouth once daily. oxyCODONE hydrochloride 5 mg oral tablet (3 sources) Opioid Agonist Start: 08-27-20 End: 09-03-20 take 1 tablet by mouth every six hours as needed for pain oxyCODONE IR (ROXICODONE) 5 mg immediate release tablet Indications: Osteochondritis dissecans of right talus Take 1 tablet by mouth every 6 hours as needed for pain for up to 7 days. for more severe postop pain after surgery. 28 tablet 0 08/27/2022 09/03/2022 Active Comment on above: Take 1 tablet by viral every 6 hours as needed for pain for up to 7 days. for more severe postop pain after surgery. phentermine hydrochloride 37.5 mg oral tablet (2 sources) Sympathomimetic Amine Anorectic Start: 04-12-20 take 1 tablet by mouth once daily before breakfast Adipex-P 37.5 MG 1 tablet before breakfast Orally Once a day for 30 days Mar, Active sertraline 50 mg oral tablet (20 sources) Serotonin Reuptake Inhibitor Start: 07-08-20 Zoloft 50 MG take 1 and 1/2 tablet Orally Once a day for 30 days Jun, Active Start: 07-07-2022 Sertraline Act alfredo MG TABLET July 07, 2022 12:00am Start: 01-24-2022 Zoloft 50 MG 1 and 1/2 tablets Orally Once a day Dec, Active Start: 11-29-2017 End: 04-18-2021 take 50 mg by mouth at bedtime Sertraline Discontinued 50 MG PO Bedtime November 29, 2017 1:00am April 18, 2021 7:19pm Comment on above: Take 50 mg by mouth once daily. Completed/Discontinued Medications Medication Drug Class(es) Dates Sig (Normalized) Sig (Original) acetaminophen 325 mg oral tablet (20 sources) Start: 08-27-2022 End: 09-12-2022 take 2 tablets by mouth every four hours acetaminophen (TYLENOL) 325 mg tablet Take 2 tablets by mouth every 4 hours while awake. after surgery on 08/28/22 until no longer needed. 0 08/27/2022 09/12/2022 Discontinued (Course of therapy completed) Start: 11-30-2021 End: 07-07-2022 take 1000 mg by mouth every six hours Acetaminophen Discontinued 1000 MG PO Q6H November 30, 2021 1:00am July 07, 2022 6:05pm tylenol 1 tab Or al prn Not-Taking tylenol 1 tab Or al prn Active Comment on above: Take 2 tablets by mo uth every 4 hours while awake. after surgery on 08/28/22 until no longer needed. acetaminophen 325 mg / HYDROcodone bitartrate 5 mg oral tablet (1 source) Opioid Agonist Start: End: Hydrocodone-Acetamino phen Discontinued 1 TAB PO As Directed February 12, 2018 12:00am March 31, 2018 2:07pm ALPRAZolam 0.5 mg oral tablet (3 sources) Benzodiazepine Start: End: take 0.5 mg by mouth once daily Alprazolam Discontinued 0.5 MG PO Daily November 29, 2017 1:00am April 18, 2021 7:19pm Comment on above: Take 0.5 mg by mouth as needed. atropine sulfate 0.025 mg / diphenoxylate hydrochloride 2.5 mg oral tablet (1 source) Anticholinergic, Cholinergic Muscarinic Antagonist, Antidiarrheal Start: End: take 1 tablet by mouth every eight hours Diphenoxylate-Atropin e (Lomotil) 2.5-0.025 mg Tablet Discontinued 1 TAB PO Every 8 hours March 31, 2018 12:00am July 02, 2018 3:46am betaxolol hydrochloride 10 mg oral tablet (2 sources) beta-Adrenergic Freedom Start: End: take 0.5 tablet by mouth once daily betaxolol (KERLONE) 10 mg tablet Take 0.5 tablets by mouth once daily. 30 tablet 3 10/03/2018 08/14/2022 Discontinued (Discontinued by Patient) Comment on above: Take 0.5 tablets by mouth once daily. 24 hr buPROPion hydrochloride 150 mg extended release oral tablet (5 sources) Aminoketone Start: take 1 tablet by mouth every twenty-four hours Wellbutrin XL 150 MG 1 tablet in the morning Orally Once a day Apr, Not-Taking calcium carbonate 500 mg chewable tablet (20 sources) take 1 tablet by mouth every twenty-four hours Tums 500 MG 1 tablet Orally Once a day prn Not-Taking cephalexin 500 mg oral capsule (4 sources) Cephalosporin Antibacterial Start: End: take 1 capsule by mouth four times daily cephALEXin (KEFLEX) 500 mg capsule Take 1 capsule by mouth four times daily. 20 capsule 0 08/27/2022 09/12/2022 Discontinued (Course of therapy completed) Comment on above: Take 1 capsule by mo [facility] four times daily. cyclobenzaprine hydrochloride 5 mg oral tablet (20 sources) Muscle Relaxant Start: take 1 tablet by mouth every eight hours as needed cyclobenzaprine (FLEXERIL) 5 mg tablet Take 1 tablet by mouth three times daily as needed. 1 in the morning, 1 in the after, 2 at hs prn for back pain 0 08/13/2022 Active Comment on above: Take 1 tablet by viral th three times daily as needed. 1 in the morning, 1 in the after, 2 at hs prn for back pain docusate sodium 100 mg oral capsule (1 source) Start: End: take 1 capsule by mouth once daily at bedtime Docusate Sodium (Dok) 100 mg Capsule Discontinued 100 MG PO Daily at bedtime November 30, 2021 1:00am July 07, 2022 6:05pm 24 hr etodolac 500 mg extended release oral tablet (4 sources) Nonsteroidal Anti-inflammatory Drug Start: take 1 tablet by mouth once daily etodolac (LODINE-XL) 500 mg 24 hr tablet Take 1 tablet by mouth once daily. 30 tablet 2 01/02/2023 Active Comment on above: Take 1 tablet by viral th once daily. fluconazole 150 mg oral tablet (9 sources) Azole Antifungal Start: take 1 tablet by mouth every twenty-four hours Diflucan 150 MG 1 tablet Orally qd May, Not-Taking HYDROmorphone hydrochloride 2 mg oral tablet (1 source) Opioid Agonist Start: End: take 2 mg by mouth every four hours Hydromorphone Discontinued 2 MG PO Q4H 10 November 30, 2021 July 07, 2022 6:05pm hydrOXYzine hydrochloride 25 mg oral tablet (1 source) Antihistamine Start: End: take 25 mg by mouth every eight hours Hydroxyzine Hcl Discontinued 25 MG PO Every 8 hours November 28, 2021 1:00am July 07, 2022 6:05pm ibuprofen 200 mg oral tablet (10 sources) Nonsteroidal Anti-inflammatory Drug take 1 tablet by mouth three times daily at mealtime as needed Ibuprofen 200 MG 1 tablet with food or milk as needed Orally Three times a day prn Not-Taking IUD's (13 sources) IUD's Not-Taking IUD's Active ketorolac tromethamine 10 mg oral tablet (4 sources) Nonsteroidal Anti-inflammatory Drug, Cyclooxygenase Inhibitor Start: 08-27-2022 End: 09-12-2022 take 1 tablet by mouth every six hours as needed keTORolac (TORADOL) 10 mg tablet Take 1 tablet by mouth every 6 hours as needed. for moderate level of postoperative pain after surgery on 08/28/22. 20 tablet 0 08/27/2022 09/12/2022 Discontinued (Course of therapy completed) Comment on above: Take 1 tablet by viral th every 6 hours as needed. for moderate level of postoperative pain after surgery on 08/28/22. loratadine 10 mg oral tablet (20 sources) Start: 02-11-2018 take 1 tablet by mouth once daily as needed Loratadine 10 MG 1 tablet Orally Once a day for 30 day(s) prn Jan, Not-Taking metoclopramide 10 mg oral tablet (1 source) Dopamine-2 Receptor Antagonist Start: 05-30-2021 End: 08-31-2021 take 1 tablet by mouth every six hours Metoclopramide Hcl (Reglan) 10 mg tablet Discontinued 10 MG PO Q6H May 30, 2021 12:00am August 31, 2021 12:52pm metroNIDAZOLE 500 mg oral tablet (1 source) Nitroimidazole Antimicrobial Start: 02-12-2018 End: 03-31-2018 take 1 tablet by mouth twice daily Metronidazole (Flagyl) 500 mg tablet Discontinued 500 MG PO Twice daily February 12, 2018 12:00am March 31, 2018 2:07pm ondansetron 4 mg disintegrating oral tablet (3 sources) Serotonin-3 Receptor Antagonist Start: 08-31-2021 End: 11-28-2021 take 4 mg by mouth every eight hours Ondansetron Discontinued 4 MG PO Q8H 9 August 31, 2021 12:00am November 28, 2021 8:21am Start: 03-31-2018 End: 07-02-2018 take 1 tablet by mouth every four hours Ondansetron (Zofran Odt) 4 mg Tablet,Disintegrating Discontinued 4 MG PO Q4H March 31, 2018 12:00am July 02, 2018 3:46am administer first dose 30 minutes before start of emetogenic chemotherapy Start: 11-29-2017 End: 12-02-2017 take 1 tablet by mouth every eight hours Ondansetron (Zofran Odt) 4 mg tablet,disintegrating Discontinued 4 MG PO Q8H 10 November 29, 2017 1:00am December 02, 2017 1:02am predniSONE 20 mg oral tablet (20 sources) Start: 08-13-2022 predniSONE 20 MG 3 tablets Orally once a day x5 days with food or milk for 5 days Jul, Not-Taking Start: 08-13-2022 End: 10-10-2022 take 1 tablet by mouth three times daily predniSONE (DELTASONE) 20 mg tablet Take 1 tablet by mouth three times daily. 0 08/13/2022 10/10/2022 Discontinued (Discontinued by another Health Care Provider) Comment on above: Take 1 tablet by viral th three times daily. Problems Active Problems Problem Classification Problem Date Documented Date Episodic/Chronic Abdominal pain (2 sources) Abdominal pain; Translations: [Unspecified abdominal pain] 11-29-2017 Episodic Anxiety disorders (20 sources) Anxiety; Translations: [Anxiety disorder, unspecified] Onset: 08-14-2022 08-14-2022 Chronic Cardiac dysrhythmias (20 sources) Ventricular premature beats; Translations: [Ventricular premature depolarization] 07-02-2018 Chronic Diseases of white blood cells (15 sources) Leukocytosis; Translations: [Elevated white blood cell count, unspecified] Chronic Disorders usually diagnosed in infancy, childhood, or adolescence (20 sources) Separation anxiety; Translations: [Separation anxiety disorder of childhood] Chronic Esophageal disorders (20 sources) Gastroesophageal reflux disease; Translations: [Gastro-esophageal reflux disease without esophagitis] Chronic Fluid and electrolyte disorders (1 source) Dehydration; Translations: [Dehydration] 07-02-2018 Episodic Fracture of lower limb (1 source) Other fracture of unspecified lower leg, initial encounter for closed fracture Episodic Headache; including migraine (1 source) Headache; Translations: [Headache] 07-02-2018 Episodic Hemorrhage during ; abruptio placenta; placenta previa (1 source) Threatened miscarriage; Translations: [Threatened ] 04-18-2021 Episodic Inflammatory diseases of female pelvic organs (1 source) Inflammation of cervix; Translations: [Inflammatory disease of cervix uteri] 02-12-2018 Episodic Malaise and fatigue (2 sources) Other fatigue Episodic Mood disorders (20 sources) Recurrent major depressive episodes; Translations: [Major depressive disorder, recurrent, unspecified] Chronic Nausea and vomiting (1 source) Nausea Episodic Nonspecific chest pain (2 sources) Atypical chest pain; Translations: [Other chest pain] 01-04-2018 Episodic Other bone disease and musculoskeletal deformities (20 sources) Osteochondritis dissecans of the talus; Translations: [Osteochondritis dissecans, 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] Onset: 2022 Chronic Other bone disease and musculoskeletal deformities (2 sources) Osteochondritis dissecans, 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; Translations: [Osteochondritis dissecans of right talus] Onset: 2022 Chronic Other complications of (1 source) Nausea and vomiting; Translations: [Vomiting of , unspecified] 05-30-2021 Episodic Other endocrine disorders (20 sources) Hypoglycemia; Translations: [Hypoglycemia, unspecified] Chronic Other non-traumatic joint disorders (1 source) Acute ankle pain; Translations: [Pain in 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] 07-07-2022 Episodic Other nutritional; endocrine; and metabolic disorders (20 sources) Body mass index 40+ - severely obese; Translations: [Body mass index (BMI) 40.0-44.9, adult] Onset: 08-14-2022 Chronic Other nutritional; endocrine; and metabolic disorders (1 source) Body mass index (BMI) 40.0-44.9, adult; Translations: [BMI 40.0-44.9, adult ([facility])] Onset: 08-14-2022 Chronic Other nutritional; endocrine; and metabolic disorders (3 sources) Abnormal weight gain Episodic Other upper respiratory disease (20 sources) Allergic rhinitis; Translations: [Allergic rhinitis, unspecified] Chronic Other upper respiratory disease (1 source) Nasal congestion Episodic Other upper respiratory infections (2 sources) Acute pharyngitis, unspecified; Translations: [Acute upper respiratory infection, unspecified] Episodic Spondylosis; intervertebral disc disorders; other back problems (20 sources) Sciatica; Translations: [Sciatica, unspecified side] Episodic Syncope (1 source) Near syncope; Translations: [Syncope and collapse] 11-29-2017 Episodic Unclassified (3 sources) LOW BACK PAIN, UNSPECIFIED; Translations: [LOW BACK PAIN, UNSPECIFIED] Onset: 08-03-2022 Unclassified (3 sources) CONTACT W/AND (SUSP) EXPOS COVID-19; Translations: [CONTACT W/AND (SUSP) EXPOS COVID-19] Onset: 06-29-2022 Unclassified (1 source) Acute bilateral low back pain without sciatica; Translations: [Acute bilateral low back pain without sciatica] Onset: 08-14-2022 Unclassified (1 source) Pain in 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; Translations: [Pain in 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] Onset: 07-07-2022 Viral infection (1 source) Viral disease; Translations: [Viral infection, unspecified] 08-31-2021 Episodic Past or Other Problems Problem Classification Problem Date Documented Da te Episodic/Chronic Cardiac dysrhythmias (20 sources) Bradycardia; Translations: [Bradycardia, unspecified] Onset: 09-02-2018 07-02-2018 Episodic Conditions associated with dizziness or vertigo (20 sources) Lightheadedness; Translations: [Dizziness and giddiness] Onset: 09-02-2018 09-02-2018 Episodic Deficiency and other anemia (20 sources) Anemia; Translations: [Anemia, unspecified] Onset: 08-14-2022 Episodic Deficiency and other anemia (1 source) Anemia, unspecified; Translations: [Anemia, unspecified type] Onset: 08-14-2022 Episodic E Codes: Natural/environment (1 source) Exposure to other specified factors, initial encounter; Translations: [EXPOSURE OTHER SPEC FACTORS INITIAL] Onset: 08-03-2022 Episodic Headache; including migraine (1 source) Headache; including migraine Residual codes; unclassified (20 sources) Difficult venous access; Translations: [Other specified health status] Onset: 08-14-2022 Episodic Residual codes; unclassified (20 sources) History of syncope; Translations: [Personal history of other specified conditions] Onset: 08-14-2022 Episodic Residual codes; unclassified (20 sources) History of palpitations; Translations: [Personal history of other specified conditions] Onset: 08-14-2022 Episodic Residual codes; unclassified (1 source) Other specified health status; Translations: [Difficult intravenous access] Onset: 08-14-2022 Episodic Residual codes; unclassified (2 sources) Personal history of other specified conditions; Translations: [History of syncope] Onset: 08-14-2022 Episodic Screening and history of mental health and substance abuse codes (20 sources) Ex-smoker; Translations: [Personal history of nicotine dependence] Onset: 08-03-2022 Episodic Sprains and strains (1 source) Strain of muscle, fascia and tendon of lower back, initial encounter; Translations: [STRAIN MUSC FASC TENDON LW BACK INT] Onset: 08-03-2022 Episodic Unclassified (1 source) Lumbar pain M54.50 Unclassified (1 source) LOW BACK PAIN, UNSPECIFIED; Translations: [LOW BACK PAIN, UNSPECIFIED] Onset: 08-01-2022 Unclassified (1 source) CONTACT W/AND (SUSP) EXPOS COVID-19; Translations: [CONTACT W/AND (SUSP) EXPOS COVID-19] Onset: 06-28-2022 Unclassified (1 source) Cough R05.9 Results Test Name Value Interpretation Reference Range Facility [facility] 05-27-2023 [facility] Telephone (4CQ) EDITH WELLS ([id number]) 1995 F Date Time Provider Department 05/27/23 TESSA SANCHEZ 4CQ During your visit today, we recorded the following information about you: Glenis Gavin 05/27/2023 12:11 PM Signed Edith Wells is calling Tessa Sanchez MD today. Patient's therapist at [facility] is asking if she can continue PT but change it to 2 days on land and 0 days in water per week. Needs new order sent to [facility] in [place]. She did not have the fax number. (Or she can pick it up if you call as soon as it's ready) Please call patient to let her know if this is approved. Also, she needs a work note. 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 Needs to extend her time off per provider's discretion. Patient will picker operator the note when ready. Call her to inform when she can pick it up. Call cell number below. May leave a message. No chief complaint on file. Patient has been identified by name and birthdate. Duration of symptoms: Person calling: self Call patient at: on cell and , it is OK to leave message [phone] (home) [phone] (cell) Was an appointment scheduled: No Closing statement: Results or non-symptom based questions: Thank you for calling [facility], your call will be returned within the next business day. Lizzette Yañez RN 05/27/2023 1:33 PM Signed I spoke with Edith and we talked at length. She will try speaking to her PCP about a work release as Dr. Sanchez, her surgeon, has retired. Lizzette Adams RN Allergies As of Date: 05/27/2023 (No Known Allergies) Date Reviewed: 04/17/2023 Reviewed by: Pari Franco MA - Fully Assessed Reason for Visit: Question [7407] Prescriptions as of 05/27/2023 - etodolac (LODINE-XL) 500 mg 24 hr tablet Take 1 tablet by mouth once daily. - cyclobenzaprine (FLEXERIL) 5 mg tablet Take 1 tablet by mouth three times daily as needed. 1 in the morning, 1 in the after, 2 at hs prn for back pain - sertraline (ZOLOFT) 50 mg tablet Take 50 mg by mouth once daily. Problem List As Of Date 05/27/2023 Noted Resolved Lightheadedness [R42] 09/02/2018 Palpitations [R00.2] 09/02/2018 Osteochondritis dissecans of right talus [M93.2*2022 Anxiety and depression [F41.9, F32.A] 08/14/2022 PTSD (post-traumatic stress disorder) [F43.10] 08/14/2022 BMI 40.0-44.9, adult (HCC) [Z68.41] 08/14/2022 History of palpitations [Z87.898] 08/14/2022 Former smoker [Z87.891] 08/14/2022 History of syncope [Z87.898] 08/14/2022 Difficult intravenous access [Z78.9] 08/14/2022 Anemia [D64.9] 08/14/2022 Encounter Status:Closed by LIZZETTE ADAMS RN on 05/27/23 Normal [facility] CNCOon 04-17-2023 CNCO Letter Text Normal [facility] CNOVon 04-17-2023 CNOV Office Visit ([place] ) EDITH WELLS ([id number]) 1995 F Date Time Provider Department 04/17/23 10:45 AM TESSA SANCHEZ During your visit today, we recorded the following information about you: Tessa Sanchez MD 04/18/2023 9:27 PM Signed Edith Wells returns today to follow up Osteochondritis dissecans of right talus. She states that she is having pain today in her ankle. She states that on fathers day she did injury her left ankle. She states that she does aching and soreness and sometimes she does feel sharp. She states that she has been trying to wear a regular shoe and she can not get her foot in them with out causing pain. Surgery: right ankle arthroscopy, excision OCD medial talus, microfracture of talus, synovectomy, surgeon monitored fluoroscopy on 08/28/22 Do you have a metal allergy?: No Current Dx: Osteochondritis dissecans of right talus Injury:No Pt. Feels their overall condition is the same. Is the patient having any pain? Yes PAIN SCALE: 7 on a scale of 0-10 Current treatment plan includes: Weight Bearing Status: full Weight bearing status:Full Ambulatory Aids:N/A Physical Therapy:Yes Home Exercise Program: Yes NSAIDS: Ibuprofen : Taking as directed and feels it is helping. Pain medication: None Activity Levels: Normal PHYSICAL EXAM: right ankle Physical examination reveals an alert and oriented patient who is in no acute distress while sitting and is of normal mood and affect. [facility] 07/02/2022 Gait Cycle: Normal Yes, Limp: none. Inspection: Alignment: neutral Symmetry: Swelling: no. Redness: no. Ecchymosis: no Effusion: 0 Palpation: Warmth: no, Tenderness:No ROM: Ankle- Normal Foot- Normal. Strength: 5 Stability: Ligamentous instability: no Specialized Tests: negative Neurologic Status: normal. 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 At the conclusion of the visit the patient voiced understanding and agreement with the plan. The patient knows to call us or present to the nearest Emergency Department if the patients pain increases. Patient knows how to reach us if there are any questions or problems. This visit required reviewed the patient's medical records, updating historical information, assessing changes in physical examination, and review of all testing information. It required patient-provider interaction for the medical decision making as documented. The time and /or expertise required in this decision-making process, communicating the results as such with the patient and developing the treatment protocol is reflected in the charge capture section of these electronic medical records. This note was partially generated using Güdpod voice recognition system, and there may be some incorrect words, spellings, and punctuation that were not noted in checking the note before saving. Tessa Sanchez M.D. Allergies As of Date: 04/17/2023 (No Known Allergies) Date Reviewed: 04/17/2023 Reviewed by: Pari Franco MA - Fully Assessed Reason for Visit: Follow Up [171] Primary Visit Diagnosis:Osteochondr itis dissecans of right talus [M93.271] Order(s):CONSULT TO PHYSICAL THERAPY [9032] Order #: [id number]: 1 FUTURE Prescriptions as of 04/18/2023 - etodolac (LODINE-XL) 500 mg 24 hr tablet Take 1 tablet by mouth once daily. - cyclobenzaprine (FLEXERIL) 5 mg tablet Take 1 tablet by mouth three times daily as needed. 1 in the morning, 1 in the after, 2 at hs prn for back pain - sertraline (ZOLOFT) 50 mg tablet Take 50 mg by mouth once daily. Problem List As Of Date 04/17/2023 Noted Resolved Lightheadedness [R42] 09/02/2018 Palpitations [R00.2] 09/02/2018 Osteochondritis dissecans of right talus [M93.2*2022 Anxiety and depression [F41.9, F32.A] 08/14/2022 PTSD (post-traumatic stress disorder) [F43.10] 08/14/2022 BMI 40.0-44.9, adult (HCC) [Z68.41] 08/14/2022 History of palpitations [Z87.898] 08/14/2022 Former smoker [Z87.891] 08/14/2022 History of syncope [Z87.898] 08/14/2022 Difficult intravenous access [Z78.9] 08/14/2022 Anemia [D64.9] 08/14/2022 Encounter Status:Closed by TESSA SANCHEZ on 04/18/23 [facility] CNOVon 03-13-2023 CNOV Office Visit (ORAVON ) EDITH WELLS ([id number]) 1995 F Date Time Provider Department 03/13/23 11:00 AM TESSA SANCHEZ During your visit today, we recorded the following information about you: Tessa Sanchez MD 03/13/2023 8:03 PM Signed Edith Wells returns today to follow up from surgery on 08/28/22: right ankle arthroscopy, excision OCD medial talus, microfracture of talus, synovectomy, surgeon monitored fluoroscopy. She states that she does feel pain today 05/06 she states that its stabbing pain. She states that some times she feels throbbing pain. She is taking over the counter medication for the pain when needed. She states that she is doing better from her last visit. She states that she is no longer wearing the boot but now is wearing a post op shoe. She states that she is trying to walk on softer ground with out the post op shoe and has been doing okay with that. She is still doing PT x2 weeks. She is still noticing that she is having trouble with the stairs. Do you have a metal allergy?: No Current Dx: Osteochondritis dissecans of right talus Injury:No Pt. Feels their overall condition is better. Is the patient having any pain? Yes PAIN SCALE: 7 on a scale of 0-10 Current treatment plan includes: Weight Bearing Status: Weight bearing status:Full Ambulatory Aids: no Physical Therapy:Yes Home Exercise Program: Yes NSAIDS: Ibuprofen : Taking as directed and feels it is helping. Pain medication: None Activity Levels: ADL only PHYSICAL EXAM: right ankle Physical examination reveals an alert and oriented patient who is in no acute distress while sitting and is of normal mood and affect. [facility] 07/02/2022 Gait Cycle: Normal Yes, Limp: none. Inspection: Alignment: neutral Symmetry: Swelling: Minimal . Redness: no. Ecchymosis: no Effusion: 0 Palpation: Warmth: no, Tenderness:Yes: Ankle: Anterior Joint Line ROM: Ankle- Normal. Strength: 5 Stability: Ligamentous instability: no Specialized Tests: negative Neurologic Status: normal. 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 Overall functional range of motion and strength are very good. She will continue with physical therapy and follow-up in 4 to 6 weeks. HPI explored in detail with patient and edited as necessary. At the conclusion of the visit the patient voiced understanding and agreement with the plan. The patient knows to call us or present to the nearest Emergency Department if the patients pain increases. Patient knows how to reach us if there are any questions or problems. This visit required reviewed the patient's medical records, updating historical information, assessing changes in physical examination, and review of all testing information. It required patient-provider interaction for the medical decision making as documented. The time and /or expertise required in this decision-making process, communicating the results as such with the patient and developing the treatment protocol is reflected in the charge capture section of these electronic medical records. This note was partially generated using Dragon voice recognition system, and there may be some incorrect words, spellings, and punctuation that were not noted in checking the note before saving. Tessa Sanchez M.D. Allergies As of Date: 03/13/2023 (No Known Allergies) Date Reviewed: 03/13/2023 Reviewed by: Pari Franco MA - Fully Assessed Reason for Visit: Follow Up [171] Primary Visit Diagnosis:Osteochondr itis dissecans of right talus [M93.271] Prescriptions as of 03/13/2023 - etodolac (LODINE-XL) 500 mg 24 hr tablet Take 1 tablet by mouth once daily. - cyclobenzaprine (FLEXERIL) 5 mg tablet Take 1 tablet by mouth three times daily as needed. 1 in the morning, 1 in the after, 2 at hs prn for back pain - sertraline (ZOLOFT) 50 mg tablet Take 50 mg by mouth once daily. Problem List As Of Date 03/13/2023 Noted Resolved Lightheadedness [R42] 09/02/2018 Palpitations [R00.2] 09/02/2018 Osteochondritis dissecans of right talus [M93.2*2022 Anxiety and depression [F41.9, F32.A] 08/14/2022 PTSD (post-traumatic stress disorder) [F43.10] 08/14/2022 BMI 40.0-44.9, adult (HCC) [Z68.41] 08/14/2022 History of palpitations [Z87.898] 08/14/2022 Former smoker [Z87.891] 08/14/2022 History of syncope [Z87.898] 08/14/2022 Difficult intravenous access [Z78.9] 08/14/2022 Anemia [D64.9] 08/14/2022 Letter Text Encounter Status:Closed by TESSA SANCHEZ on 03/13/23 [facility] Shayy 02-28-2023 [facility] Telephone (ORAVON) EDITH WELLS ([id number]) 1995 F Date Time Provider Department 02/28/23 TESSA SANCHEZ During your visit today, we recorded the following information about you: Margy Willis Ben Pss 02/28/2023 4:09 PM Signed Patient wants to get physical therapy at [facility] in [place]. Has been approved by [facility] and she can now schedule. Asking for recent therapy order from Dr Sanchez be faxed to [facility] in [place] at [phone]. Lizzette Adams RN 03/01/2023 10:22 AM Signed Faxed today at 10:20am. Lizzette Adams RN Allergies As of Date: 02/28/2023 (No Known Allergies) Date Reviewed: 01/02/2023 Reviewed by: Theresa Frederick MA - Fully Assessed Reason for Visit: Electronic Communication [450] Cmt: PT order faxed today Prescriptions as of 03/01/2023 - etodolac (LODINE-XL) 500 mg 24 hr tablet Take 1 tablet by mouth once daily. - cyclobenzaprine (FLEXERIL) 5 mg tablet Take 1 tablet by mouth three times daily as needed. 1 in the morning, 1 in the after, 2 at hs prn for back pain - sertraline (ZOLOFT) 50 mg tablet Take 50 mg by mouth once daily. Problem List As Of Date 02/28/2023 Noted Resolved Lightheadedness [R42] 09/02/2018 Palpitations [R00.2] 09/02/2018 Osteochondritis dissecans of right talus [M93.2*2022 Anxiety and depression [F41.9, F32.A] 08/14/2022 PTSD (post-traumatic stress disorder) [F43.10] 08/14/2022 BMI 40.0-44.9, adult (HCC) [Z68.41] 08/14/2022 History of palpitations [Z87.898] 08/14/2022 Former smoker [Z87.891] 08/14/2022 History of syncope [Z87.898] 08/14/2022 Difficult intravenous access [Z78.9] 08/14/2022 Anemia [D64.9] 08/14/2022 Encounter Status:Closed by LIZZETTE ADAMS [facility] EDITH WELLS ([id number]) 1995 F Date Time Provider Department 01/10/23 TESSA SANCHEZ During your visit today, we recorded the following information about you: Ana Luisa Hernandez RN 01/10/2023 11:34 AM Signed Patient calling. Asking that the return to work letter from the 01/02/23 OV be re-sent. She was unable to give me numbers, fax to where it needs to go, but states the office has sent other info to her employer and disability company? Advised to reach out to both if possible to find out what documentation is needed and where to send it. She will call back to the office to update CALL [phone] Autumn Clayton 01/10/2023 12:07 PM Signed Edith Wells is calling Tessa Sanchez MD today with concern regarding Return To Work Letter and OV notes. Patient calling regarding request. Still unable to provide fax number for either work or disability. She is asking for [employer] to call her back. This agent unable to find [employer] in previous encounters. Please advise. Patient has been identified by name and birthdate. Duration of symptoms: N/A Person calling: self Call patient at: at home [phone] (home) [phone] (cell) Was an appointment scheduled: No Closing statement: Results or non-symptom based questions: Thank you for calling [facility], your call will be returned within the next business day. Lizzette Adams RN 01/11/2023 12:04 PM Signed Patient's note faxed today as requested Lizzette Adams RN Nolberto Noguera 02/08/2023 4:15 PM Signed Patient calling in about papers she received in the mail. She does not know what they are or what she needs to do with them. Please call her at [phone]. Lizzette Adams RN 02/11/2023 10:34 AM Signed I spoke with her. The papers she is talking about is the forms she and I went over together over the phone. She wanted copies of them so I mailed them to her. Lizzette Adams RN Allergies As of Date: 01/10/2023 (No Known Allergies) Date Reviewed: 01/02/2023 Reviewed by: Theresa Frederick MA - Fully Assessed Reason for Visit: Return To Work Letter [2058] Prescriptions as of 02/11/2023 - etodolac (LODINE-XL) 500 mg 24 hr tablet Take 1 tablet by mouth once daily. - cyclobenzaprine (FLEXERIL) 5 mg tablet Take 1 tablet by mouth three times daily as needed. 1 in the morning, 1 in the after, 2 at hs prn for back pain - sertraline (ZOLOFT) 50 mg tablet Take 50 mg by mouth once daily. Problem List As Of Date 01/10/2023 Noted Resolved Lightheadedness [R42] 09/02/2018 Palpitations [R00.2] 09/02/2018 Osteochondritis dissecans of right talus [M93.2*2022 Anxiety and depression [F41.9, F32.A] 08/14/2022 PTSD (post-traumatic stress disorder) [F43.10] 08/14/2022 BMI 40.0-44.9, adult (HCC) [Z68.41] 08/14/2022 History of palpitations [Z87.898] 08/14/2022 Former smoker [Z87.891] 08/14/2022 History of syncope [Z87.898] 08/14/2022 Difficult intravenous access [Z78.9] 08/14/2022 Anemia [D64.9] 08/14/2022 Encounter Status:Closed by LIZZETTE ADAMS RN on 01/11/23 [facility] CNOVon 01-02-2023 CNOV Office Visit (ORAVON ) PRISCILLAEDITH ([id number]) 1995 F Date Time Provider Department 01/02/23 4:00 PM TESSA SANCHEZ During your visit today, we recorded the following information about you: Tessa Sanchez MD 01/02/2023 10:32 PM Signed Edithbabar Wells returns today to follow up on her Right Ankle. She reports intermittent pain today. She describes sharp, burning, shooting pain. She would like to discuss getting a PT referral. She also has concerns of nerve damage from the nerve block at the time of surgery due to numbness. She is fully weight -bearing currently using her walking boot, she stated the ankle brace gives her pain. POD 18 weeks Surgery: right ankle arthroscopy, excision OCD medial talus, microfracture of talus, synovectomy, surgeon monitored fluoroscopy on 08/28/22 Do you have a metal allergy?: No Current Dx: Osteochondritis dissecans of right talus Injury:No Pt. Feels their overall condition is the same. Is the patient having any pain? Yes PAIN SCALE: 7 on a scale of 0-10 PAIN CHARACTER: aching, sharp, and throbbing Current treatment plan includes: Weight Bearing Status: WB Weight bearing status:Full Ambulatory Aids:N/A Physical Therapy:No Home Exercise Program: No NSAIDS: Not taking Pain medication: None Activity Levels: Normal PHYSICAL EXAM: right ankle Physical examination reveals an alert and oriented patient who is in no acute distress while sitting and is of normal mood and affect. [facility] 07/02/2022 Gait Cycle: Normal Yes, Limp: antalgic right, still uses walking boot Inspection: Alignment: neutral Symmetry: Swelling: no. Redness: no. Ecchymosis: no Effusion: 0 Palpation: Warmth: no, Tenderness:No ROM: continues to improve Strength: continues to improve Stability: Ligamentous instability: no Specialized Tests: negative Neurologic Status: normal. Vascular Status: normal Skin: Incision: well healed, clean, dry and intact and there is no erythema or drainage present. 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 She should transition from the boot to a stability type shoe with a Powerstep insert. Order placed for physical therapy to work on range of motion, strengthening, and proprioception, as well as a desensitization program. I fashioned her a pair of Powerstep inserts today in good car to offload the medial aspect of the ankle and support her pes planus to hopefully make the transition out of the boot more comfortable. She was very concerned about being able to stay off of work. An excuse was given for the next 6 weeks. HPI explored in detail with patient and edited as necessary. At the conclusion of the visit the patient voiced understanding and agreement with the plan. The patient knows to call us or present to the nearest Emergency Department if the patients pain increases. Patient knows how to reach us if there are any questions or problems. This visit required reviewed the patient's medical records, updating historical information, assessing changes in physical examination, and review of all testing information. It required patient-provider interaction for the medical decision making as documented. The time and /or expertise required in this decision-making process, communicating the results as such with the patient and developing the treatment protocol is reflected in the charge capture section of these electronic medical records. This note was partially generated using Güdpod voice recognition system, and there may be some incorrect words, spellings, and punctuation that were not noted in checking the note before saving. Scribe Attestation: By signing my name below, I, Pippa Moss, attest that this documentation has been prepared under the direction and in the presence of Tessa Sanchez MD. Electronically Signed: alan Alarcon, January 02, 2023 4:30 PM I agree with the Chief Complaint, ROS, and Past Histories independently gathered by the clinical personal support worker and the remaining scribed note accurately describes my personal service to the patient. Tessa Sanchez M.D. Allergies As of Date: 01/02/2023 (No Known Allergies) Date Reviewed: 01/02/2023 Reviewed by: Theresa Frederick MA - Fully Assessed Reason for Visit: Follow Up [171] Primary Visit Diagnosis:Osteochondr itis dissecans of right talus [M93.271] Order(s):CONSULT TO PHYSICAL THERAPY [9020] Order #: [id number]: 1 FUTURE etodolac (LODINE-XL) 500 mg 24 hr tabletTake 1 tablet by mouth once daily.Disp: 30 tabletRfl: 2 Prescriptions as of 01/02/2023 - etodolac (LODINE-XL) 500 mg 24 hr tablet Take 1 tablet by mouth once daily. - cyclobenzaprine (FLEXERIL) 5 (more content not included)... Normal [facility] XR ANKLE 3V AP/LAT/OBL RTon 01-02-2023 XR ANKLE 3V AP/LAT/OBL RT * * *Final Report* * * DATE OF EXAM: Jan 02 2023 4:11PM AFR [id number] - XR ANKLE 3V AP/LAT/OBL RT / PROCEDURE REASON: Osteochondritis dissecans of right talus * * * * Physician Interpretation * * * * EXAMINATION / TECHNIQUE: XR ANKLE 3V AP/LAT/OBL RT HISTORY: RIGHT ANKLE PAIN AND BURNING- SURGERY 08/2022 Osteochondritis dissecans of right talus COMPARISON: 11/14/2022. RESULT: See impression IMPRESSION: Treated medial talar dome osteochondral lesion demonstrates subchondral lucency similar to the prior exam. No acute fracture or malalignment is identified. Joint spaces are maintained. Survey Director: PSCKapil Transcribe Date/Time: Jan 02 2023 4:17P Dictated by : RC CIFUENTES MD This examination was interpreted and the report reviewed and electronically signed by: CR CIFUENTES MD on Jan 02 2023 4:18PM EST [id number] Normal [facility] XR ANKLE GENERAL 3V AP/LAT/O BL RIGHTon 01-02-2023 [facility] CNCOon 12-21-2022 CNCO Letter Text Normal [facility] CNPNon 12-21-2022 CNPN Telephone (ORAVON) PRISCILLAEDITH ([id number]) 1995 F Date Time Provider Department 12/21/22 TESSA SANCHEZ During your visit today, we recorded the following information about you: Vinay Corona RN 12/21/2022 5:30 PM Signed This RN called and spoke with patient regarding request for letter. A letter was written for her. She is reporting she was wanting to change providers and asking for her records to be sent to a new doctor. I asked her to sign a release of records by coming in to fill it out and then we would send the information over but encouraged her that most providers do not take over post operative care that is this new. She reports an understanding of need for release and will call [employer]lyx with the fax number to the new doctor. Mark Anthony direct number was given to the patient again and our direct fax number as she is reporting she is having a difficult time getting through to the team and reports paperwork as being faxed that I do not see. She was encouraged to refax them if she would like our office to complete them. Allergies As of Date: 12/21/2022 (No Known Allergies) Date Reviewed: 11/14/2022 Reviewed by: Lizzette Adams RN - Fully Assessed Reason for Visit: Patient Update [1234] Cmt: Requested a letter Prescriptions as of 12/21/2022 - cyclobenzaprine (FLEXERIL) 5 mg tablet Take 1 tablet by mouth three times daily as needed. 1 in the morning, 1 in the after, 2 at hs prn for back pain - sertraline (ZOLOFT) 50 mg tablet Take 50 mg by mouth once daily. Problem List As Of Date 12/21/2022 Noted Resolved Lightheadedness [R42] 09/02/2018 Palpitations [R00.2] 09/02/2018 Osteochondritis dissecans of right talus [M93.2*2022 Anxiety and depression [F41.9, F32.A] 08/14/2022 PTSD (post-traumatic stress disorder) [F43.10] 08/14/2022 BMI 40.0-44.9, adult (HCC) [Z68.41] 08/14/2022 History of palpitations [Z87.898] 08/14/2022 Former smoker [Z87.891] 08/14/2022 History of syncope [Z87.898] 08/14/2022 Difficult intravenous access [Z78.9] 08/14/2022 Anemia [D64.9] 08/14/2022 Encounter Status:Closed by VINAY CORONA on 12/21/22 [facility]ay[facility] 12-19-2022 CNPN Telephone (ORAVON) EDITH WELLS ([id number]) 1995 F Date Time Provider Department 12/19/22 TESSA SANCHEZ During your visit today, we recorded the following information about you: Kelley Catherine 12/19/2022 12:10 PM Signed Pt is calling stating she is to return to work on 12/24 Pt states she is still in a lot of pain Pt states she walks a little and has to sit down due to the pain Pt appointment is not until 01/02 Pt states she was not able to go PT in Nov due to having covid,after being neg her family had a stomach bug and then upper upper respiratory infection. Pt was requesting to be seen sooner by provider but no openings Pt wanted to know if her return to work date could be moved back until after her 01/02 appointment Pt states her job requires her to return with no restrictions Please contact pt with update Please advise Margy Contreras Pss 12/19/2022 12:46 PM Signed Patient calling. Wanted to add to below message. Disability is asking for more detailed notes from last visit and to see if leave can be extended until after seen by Dr Sanchez on 01/02/23. Right now her RTW date is 12/24/22. States work does not want her back with any restrictions. Autumn Clayton 12/21/2022 2:59 PM Signed Patient calling, very concerned this has not been addressed. Due to RTW on 12/24/22. Still in a lot of pain. Forwarded to NT to get symptom details. Autumn Clayton, PSS Patient Operations Support Team (POST) Please note: Please do not re-route phone encounters back to this agent, please send to appropriate office pool. Agent works in call center and cannot complete patient specific tasks. Ana Luisa Hernandez RN 12/21/2022 3:07 PM Signed Patient calling back. Has RTW date of 12/24/22. Asking if letter could be formatted to extend the date until the appointment on 01/02/23? Continues to have pain. Wearing the boot again, unable to wear the brace d/t pain. See below message, for illness details during Nov, that prevented her form having PT. CALL [phone] Vinay Corona RN 12/21/2022 5:35 PM Signed This RN called and spoke with patient. Letter sent via [employer] she report she received it. 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 She was grateful for the call. Vinay Corona RN BSN Allergies As of Date: 12/19/2022 (No Known Allergies) Date Reviewed: 11/14/2022 Reviewed by: Lizzette Adams RN - Fully Assessed Reason for Visit: Patient Update [1234] Prescriptions as of 12/21/2022 - cyclobenzaprine (FLEXERIL) 5 mg tablet Take 1 tablet by mouth three times daily as needed. 1 in the morning, 1 in the after, 2 at hs prn for back pain - sertraline (ZOLOFT) 50 mg tablet Take 50 mg by mouth once daily. Problem List As Of Date 12/19/2022 Noted Resolved Lightheadedness [R42] 09/02/2018 Palpitations [R00.2] 09/02/2018 Osteochondritis dissecans of right talus [M93.2*2022 Anxiety and depression [F41.9, F32.A] 08/14/2022 PTSD (post-traumatic stress disorder) [F43.10] 08/14/2022 BMI 40.0-44.9, adult (HCC) [Z68.41] 08/14/2022 History of palpitations [Z87.898] 08/14/2022 Former smoker [Z87.891] 08/14/2022 History of syncope [Z87.898] 08/14/2022 Difficult intravenous access [Z78.9] 08/14/2022 Anemia [D64.9] 08/14/2022 Encounter Status:Closed by VINAY CORONA on 12/21/22 [facility] CNOVon 11-14-2022 CNOV Office Visit (ORAVON ) EDITH WELLS ([id number]) 1995 F Date Time Provider Department 11/14/22 4:15 PM TESSA SANCHEZ During your visit today, we recorded the following information about you: Tessa Sanchez MD 11/14/2022 9:40 PM Signed POD 11 weeks Surgery: right ankle arthroscopy, excision OCD medial talus, microfracture of talus, synovectomy, surgeon monitored fluoroscopy on 08/28/22 10+10 at last visit - she is working on this. She states she has some spot tenderness medially and some numb zingers mid-calf laterally. She feels she is about 50% weight bearing with a walker Dressings: NA Incision: healed with no redness Sutures: NA Drain: NA Pin sites: NA Right ankle pain: 6/10 Calf assessment: soft, non-tender, no complaints of pain Concerns: none currently Xrays done today: Debridement area looks stable and the talus Followup and plan: May transition with progressive weightbearing as discussed today. 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 1 in the morning, 1 in the after, 2 at hs prn for back pain - sertraline (ZOLOFT) 50 mg tablet Take 50 mg by mouth once daily. 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 Anxiety and depression [F41.9, F32.A] 08/14/2022 PTSD (post-traumatic stress disorder) [F43.10] 08/14/2022 BMI 40.0-44.9, adult (HCC) [Z68.41] 08/14/2022 History of palpitations [Z87.898] 08/14/2022 Former smoker [Z87.891] 08/14/2022 History of syncope [Z87.898] 08/14/2022 Difficult intravenous access [Z78.9] 08/14/2022 Anemia [D64.9] 08/14/2022 Letter Text Encounter Status:Closed by TESSA SANCHEZ on 11/14/22 Normal [facility] EBV EARLY ANTIGEN (IgG)on EBV Early Antigen Ab, IgG <9.0 Normal 0.0-8.9 [facility] Comment on above: Result Comment: Nega tive < 9.0 Equivocal 9.0 - 10.9 Positive >10.9 Performed By: #### E BVEARL #### [facility] [address] [place] [address] Dr. Judah Phipps LU-POSADAS VIRUS (EBV) AB PROFILEon 11-14-2022 EBV Ab VCA, IgG 370.0 U/mL Critically high 0.0-17.9 [facility] Comment on above: Result Comment: Nega tive <18.0 Equivocal 18.0 - 21.9 Positive >21.9 Performed By: #### E BVPROF #### [facility] [address] [address] [address] Judah Phipps EBV Ab VCA, IgM <36.0 Normal 0.0-35.9 [facility] Comment on above: Result Comment: Nega tive <36.0 Equivocal 36.0 - 43.9 Positive >43.9 Performed By: #### E BVPROF #### [facility] [address] [address] [address] Judah Phipps EBV Nuclear Antigen Ab, IgG 224.0 U/mL Critically high 0.0-17.9 [facility] Comment on above: Result Comment: Nega tive <18.0 Equivocal 18.0 - 21.9 Positive >21.9 Performed By: #### E BVPROF #### [facility] [address] [address] [address] Judah Phipps Interpretation: Comment Normal [facility] Comment on above: Result Comment: EBV Interpretation Chart Geller: Antibody Present + Antibody Absent - Interpretation VCA-IgM VCA-IgG EBNA-IgG . No previous infection/ - - - Susceptible Primary infection (new + + - or recent) Past Infection +or- + + See comment below* + - - *Results indicate infection with EBV at some time however cannot predict the timing of the infection since antibodies to EBNA usually develop after primary infection or, alternatively, approximately 5-10% of patients with EBV never develop antibodies to EBNA. Performed By: #### E BVPROF #### [facility] [address] [place] [address] Dr. Judah Phipps XR ANKLE 3V AP/LAT/OBL RTon 11-14-2022 XR ANKLE 3V AP/LAT/OBL RT * * *Final Report* * * DATE OF EXAM: Nov 14 2022 4:07PM AFR [id number] - XR ANKLE 3V AP/LAT/OBL RT / PROCEDURE REASON: Osteochondritis dissecans of right talus * * * * Physician Interpretation * * * * EXAMINATION: XR ANKLE 3V AP/LAT/OBL RT PATIENT/TECHNOLOGIST PROVIDED HISTORY: RIGHT ANKLE POST OP 08/28/22 CLINICAL INFORMATION ( PROVIDED BY ORDERING CLINICIAN) : Osteochondritis dissecans of right talus TECHNIQUE: XR ANKLE 3V AP/LAT/OBL RT Laterality: RIGHT Number of different views (projections): 3 M: XB_1 COMPARISON: 07/16/2022 RESULT: Treated chronic osteochondral lesion in the medial talar dome demonstrates increasingly smooth contours with mild residual sclerosis and lucency. The ankle mortise is symmetric. Small plantar calcaneal bone spur. No acute fracture or dislocation. IMPRESSION: Expected postoperative findings as described. Survey Director: PSCB Transcribe Date/Time: Nov 14 2022 6:35P Dictated by : TINA VEGA MD This examination was interpreted and the report reviewed and electronically signed by: TINA VEGA MD on Nov 15 2022 6:27AM EST [id number] N Normal [facility] XR ANKLE GENERAL 3V AP/LAT/O BL RIGHTon 11-14-2022 [facility] AMYLASEon 11-13-2022 Amylase [Catalytic activity/Vol] 42 U/L Normal 25-115 [facility] Comment on above: Performed By: #### L IPA, CMP, SYEDA, PREGQNT #### [facility] [address] [place] [address] Dr. Judah Phipps CBC AUTO DIFFon 11-13-2022 BASO # 0.0 103/ul Normal 0.0-0.1 [facility] Comment on above: Performed By: #### L IPA, CMP, SYEDA, PREGQNT #### [facility] [address] [address] [address] Judah Phipps Basophils/100 WBC (Bld) 0.3 % Normal 0.2-2.0 [facility] Comment on above: Performed By: #### L IPA, CMP, SYEDA, PREGQNT #### [facility] [address] [address] [address] Judah Phipps EO # 0.5 103/ul Normal 0.0-0.7 [facility] Comment on above: Performed By: #### L IPA, CMP, SYEDA, PREGQNT #### [facility] [address] [place] [address] Dr. Judah Phipps Eosinophils/100 WBC (Bld) 4.0 % Normal 0.9-7.0 [facility] Comment on above: Performed By: #### L IPA, CMP, SYEDA, PREGQNT #### [facility] [address] [place] [address] Dr. Judah Phipps Erythrocyte distribution width (RBC) [Ratio] 13.2 % Normal 11.0-15.0 [facility] Comment on above: Performed By: #### L IPA, CMP, SYEDA, PREGQNT #### [facility] [address] [place] [address] Dr. Judah Phipps Hematocrit (Bld) [Volume fraction] 37.2 % Normal 36.0-48.0 [facility] Comment on above: Performed By: #### L IPA, CMP, SYEDA, PREGQNT #### [facility] [address] [place] [address] Dr. Judah Phipps Hemoglobin (Bld) [Mass/Vol] 12.5 g/dL Normal 12.0-16.0 [facility] Comment on above: Performed By: #### L IPA, CMP, SYEDA, PREGQNT #### [facility] [address] [place] [address] Dr. Judah Phipps IG # 0.04 10e3/ul Critically high 0.00-0.03 [facility] Comment on above: Performed By: #### L IPA, CMP, SYEDA, PREGQNT #### [facility] [address] [place] [address] Dr. Judah Phipps IG % 0.3 % Normal 0.0-0.5 [facility] Comment on above: Performed By: #### L IPA, CMP, SYEDA, PREGQNT #### [facility] [address] [place] [address] Dr. Judah Phipps LYMPH # 4.8 103/ul Critically high 1.2-3.8 [facility] Comment on above: Performed By: #### L IPA, CMP, SYEDA, PREGQNT #### [facility] [address] [place] [address] Dr. Judah Phipps Lymphocytes/100 WBC (Bld) 39.9 % Normal 20.5-60.0 [facility] Comment on above: Performed By: #### L IPA, CMP, SYEDA, PREGQNT #### [facility] [address] [place] [address] Dr. Judah Phipps MANUAL DIFF REQ NO Normal [facility] Comment on above: Performed By: #### L IPA, CMP, SYEDA, PREGQNT #### [facility] [address] [place] [address] Dr. Judah Phipps MCH (RBC) [Entitic mass] 30.5 pg Normal 26.7-34.0 [facility] Comment on above: Performed By: #### L IPA, CMP, SYEDA, PREGQNT #### [facility] [address] [place] [address] Dr. Judah Phipps MCHC (RBC) [Mass/Vol] 33.6 g/dL Normal 29.9-35.2 [facility] Comment on above: Performed By: #### L IPA, CMP, SYEDA, PREGQNT #### [facility] [address] [place] [address] Dr. Judah Phpips MCV (RBC) [Entitic vol] 90.7 fL Normal 81.0-99.0 [facility] Comment on above: Performed By: #### L IPA, CMP, SYEDA, PREGQNT #### [facility] [address] [place] [address] Dr. Judah Phipps MONO # 0.7 103/ul Normal 0.3-0.8 [facility] Comment on above: Performed By: #### L IPA, CMP, SYEDA, PREGQNT #### [facility] [address] [place] [address] Dr. Judah Phipps Monocytes/100 WBC (Bld) 6.1 % Normal 1.7-12.0 [facility] Comment on above: Performed By: #### L IPA, CMP, SYEDA, PREGQNT #### [facility] [address] [address] [address] Judah Phipps NEUT # 5.9 103/ul Normal 1.4-6.5 [facility] Comment on above: Performed By: #### L IPA, CMP, SYEDA, PREGQNT #### [facility] [address] [address] [address] Judah Phipps Neutrophils/100 WBC (Bld) 49.4 % Normal 43.0-75.0 [facility] Comment on above: Performed By: #### L IPA, CMP, SYEDA, PREGQNT #### [facility] [address] [place] [address] Dr. Judah Phipps Platelet mean volume (Bld) [Entitic vol] 9.2 fL Critically low 9.5-13.5 [facility] Comment on above: Performed By: #### L IPA, CMP, SYEDA, PREGQNT #### [facility] [address] [place] [address] Dr. Judah Phipps PLT 408 103/ul Normal 150-450 [facility] Comment on above: Performed By: #### L IPA, CMP, SYEDA, PREGQNT #### [facility] [address] [address] [address] Judah Phipps RBC 4.10 106/ul Critically low 4.20-5.40 [facility] Comment on above: Performed By: #### L IPA, CMP, SYEDA, PREGQNT #### [facility] [address] [place] [address] Dr. Judah Phipps WBC 12.0 103/ul Critically high 4.0-11.0 [facility] Comment on above: Performed By: #### L IPA, CMP, SYEDA, PREGQNT #### [facility] [address] [place] [address] Dr. Judah Phipps LIPASEon 11-13-2022 Lipase [Catalytic activity/Vol] 161.0 U/L Normal 73.0-393.0 [facility] Comment on above: Performed By: #### L IPA, CMP, SYEDA, PREGQNT #### [facility] [address] [place] [address] Dr. Judah Phipps PREG QUANT HCGon 11-13-2022 HCG QUANT <1 Normal [facility] Comment on above: Performed By: #### L IPA, CMP, SYEDA, PREGQNT #### [facility] [address] [place] [address] Dr. Judah Phipps HCG RANGE SEE BELOW Normal [facility] Comment on above: Result Comment: 5-50 0.2-1 WEEK 50-500 1-2 WEEKS 100-5,000 2-3 WEEKS 500-10,000 3-4 WEEKS 1,000-50,000 4-5 WEEKS 10,000-100,000 5-6 WEEKS 15,000-200,000 6-8 WEEKS 10,000-100,000 2-3 MONTHS Performed By: #### L IPA, CMP, SYEDA, PREGQNT #### [facility] [address] [place] [address] Dr. Judah Phipps PROF 14(COMP METB)on 023 Albumin [Mass/Vol] 3.6 g/dL Normal 3.4-5.0 [facility] Comment on above: Performed By: #### L IPA, CMP, SYEDA, PREGQNT #### [facility] [address] [place] [address] Dr. Judah Phipps Albumin/Globulin [Mass ratio] 1.1 {ratio} Normal [facility] Comment on above: Performed By: #### L IPA, CMP, SYEDA, PREGQNT #### [facility] [address] [place] [address] Dr. Judah Phipps ALP [Catalytic activity/Vol] 64 U/L Normal 46-116 [facility] Comment on above: Performed By: #### L IPA, CMP, SYEDA, PREGQNT #### [facility] [address] [place] [address] Dr. Judah Phipps ALT [Catalytic activity/Vol] 9 U/L Critically low 14-59 [facility] Comment on above: Performed By: #### L IPA, CMP, SYEDA, PREGQNT #### [facility] [address] [place] [address] Dr. Judah Phipps Anion gap [Moles/Vol] 11.3 mmol/L Normal [facility] Comment on above: Performed By: #### L IPA, CMP, SYEDA, PREGQNT #### [facility] [address] [place] [address] Dr. Judah Phipps AST [Catalytic activity/Vol] 10 U/L Critically low 15-37 [facility] Comment on above: Performed By: #### L IPA, CMP, SYEDA, PREGQNT #### [facility] [address] [address] [address] Judah Phipps Bilirubin [Mass/Vol] 0.2 mg/dL Normal 0.2-1.0 [facility] Comment on above: Performed By: #### L IPA, CMP, SYEDA, PREGQNT #### [facility] [address] [place] [address] Dr. Judah Phipps Calcium [Mass/Vol] 8.9 mg/dL Normal 8.5-10.1 [facility] Comment on above: Performed By: #### L IPA, CMP, SYEDA, PREGQNT #### [facility] [address] [place] [address] Dr. Judah Phipps Chloride [Moles/Vol] 102 mmol/L Normal 98-107 [facility] Comment on above: Performed By: #### L IPA, CMP, SYEDA, PREGQNT #### [facility] [address] [place] [address] Dr. Judah Phipps CO2 [Moles/Vol] 28.5 mmol/L Normal 21.0-32.0 [facility] Comment on above: Performed By: #### L IPA, CMP, SYEDA, PREGQNT #### [facility] [address] [place] [address] Dr. Judah Phipps Creatinine [Mass/Vol] 0.65 mg/dL Normal 0.55-1.02 [facility] Comment on above: Performed By: #### L IPA, CMP, SYEDA, PREGQNT #### [facility] [address] [place] [address] Dr. Judah Phipps EGFR-AF MOZAMBICAN >60 Normal >=60 [facility] Comment on above: Performed By: #### L IPA, CMP, SYEDA, PREGQNT #### [facility] [address] [address] [address] Judah Phipps EGFR-NON AF MOZAMBICAN >60 Normal >=60 [facility] Comment on above: Performed By: #### L IPA, CMP, SYEDA, PREGQNT #### [facility] [address] [place] [address] Dr. Judah Phipps Globulin (S) [Mass/Vol] 3.4 g/dL Normal [facility] Comment on above: Performed By: #### L IPA, CMP, SYEDA, PREGQNT #### [facility] [address] [place] [address] Dr. Judah Phipps Glucose [Mass/Vol] 100 mg/dL Normal 74-106 [facility] Comment on above: Performed By: #### L IPA, CMP, SYEDA, PREGQNT #### [facility] [address] [place] [address] Dr. Judah Phipps Potassium [Moles/Vol] 3.8 mmol/L Normal 3.5-5.1 [facility] Comment on above: Performed By: #### L IPA, CMP, SYEDA, PREGQNT #### [facility] [address] [place] [address] Dr. Judah Phipps Protein [Mass/Vol] 7.0 g/dL Normal 6.4-8.2 [facility] Comment on above: Performed By: #### L IPA, CMP, SYEDA, PREGQNT #### [facility] [address] [address] [address] Judah Phipps Sodium [Moles/Vol] 138 mmol/L Normal 136-145 [facility] Comment on above: Performed By: #### L IPA, CMP, SYEDA, PREGQNT #### [facility] [address] [place] [address] Dr. Judah Phipps Urea nitrogen [Mass/Vol] 15.0 mg/dL Normal 7.0-18.0 [facility] Comment on above: Performed By: #### L IPA, CMP, SYEDA, PREGQNT #### [facility] [address] [place] [address] Dr. Judah Phipps Urea nitrogen/Creatinine [Mass ratio] 23.1 mg/mg Normal [facility] Comment on above: Performed By: #### L IPA, CMP, SYEDA, PREGQNT #### [facility] [address] [place] [address] Dr. Judah Phipps RESPIRATORY PANEL PLUSon Adenovirus Not detected Normal NOT DETECTED [facility] Comment on above: Performed By: #### R SPLUS #### [facility] [address] [place] [address] Dr. Judah Dick. Parapertusis Not detected Normal NOT DETECTED [facility] Comment on above: Performed By: #### R SPLUS #### [facility] [address] [place] [address] Dr. Judah Dick. Pertussis Not detected Normal NOT DETECTED [facility] Comment on above: Performed By: #### R SPLUS #### [facility] [address] [place] [address] Dr. Judah Phipps Chlamydia Pneumoniae Not detected Normal NOT DETECTED [facility] Comment on above: Performed By: #### R SPLUS #### [facility] [address] [place] [address] Dr. Judah Phipps Coronavirus 229E Not detected Normal NOT DETECTED [facility] Comment on above: Performed By: #### R SPLUS #### [facility] [address] [place] [address] Dr. Judah Phipps Coronavirus HKU1 Not detected Normal NOT DETECTED [facility] Comment on above: Performed By: #### R SPLUS #### [facility] [address] [place] [address] Dr. Judah Phipps Coronavirus NL63 Not detected Normal NOT DETECTED [facility] Comment on above: Performed By: #### R SPLUS #### [facility] [address] [place] [address] Dr. Judah Phipps Coronavirus OC43 Not detected Normal NOT DETECTED [facility] Comment on above: Performed By: #### R SPLUS #### [facility] [address] [address] [address] Judah Phipps Influenza A H1 2009 Not detected Normal NOT DETECTED [facility] Comment on above: Performed By: #### R SPLUS #### [facility] [address] [address] [address] Judah Phipps Influenza A H3 Not detected Normal NOT DETECTED [facility] Comment on above: Performed By: #### R SPLUS #### [facility] [address] [address] [address] Judah Phipps Influenza B Not detected Normal NOT DETECTED [facility] Comment on above: Performed By: #### R SPLUS #### [facility] [address] [address] [address] Judah Phipps Metapneumovirus Not detected Normal NOT DETECTED [facility] Comment on above: Performed By: #### R SPLUS #### [facility] [address] [place] [address] Dr. Judah Phipps Mycoplas. Pneumoniae Not detected Normal NOT DETECTED [facility] Comment on above: Performed By: #### R SPLUS #### [facility] [address] [address] [address] Judah Phipps Parainfluenza 1 Not detected Normal NOT DETECTED [facility] Comment on above: Performed By: #### R SPLUS #### [facility] [address] [place] [address] Dr. Judah Phipps Parainfluenza 2 Not detected Normal NOT DETECTED [facility] Comment on above: Performed By: #### R SPLUS #### [facility] [address] [place] [address] Dr. Judah Phipps Parainfluenza 3 Not detected Normal NOT DETECTED [facility] Comment on above: Performed By: #### R SPLUS #### [facility] [address] [place] [address] Dr. Judah Phipps Parainfluenza 4 Not detected Normal NOT DETECTED [facility] Comment on above: Performed By: #### R SPLUS #### [facility] [address] [address] [address] Judah Phipps Rhino/Enterovirus Not detected Normal NOT DETECTED [facility] Comment on above: Performed By: #### R SPLUS #### [facility] [address] [place] [address] Dr. Judah Phipps RP2 Header 1 RESPIRATORY PANEL: VIRUSES Normal [facility] Comment on above: Performed By: #### R SPLUS #### [facility] [address] [place] [address] Dr. Judah Phipps RP2 Header 2 RESPIRATORY PANEL: BACTERIA Normal [facility] Comment on above: Performed By: #### R SPLUS #### [facility] [address] [place] [address] Dr. Judah Phipps RSV Not detected Normal NOT DETECTED [facility] Comment on above: Performed By: #### R SPLUS #### [facility] [address] [place] [address] Dr. Judah Phipsp SARS-CoV-2 (COVID-19) RNA HAROLDO+probe Ql (Unsp spec) Not detected Normal NOT DETECTED [facility] Comment on above: Performed By: #### R SPLUS #### [facility] [address] [place] [address] Dr. Judah Prince 10-10-2022 CNOV Office Visit (ADRI[place] ) EDITH WELLS ([id number]) 1995 F Date Time Provider Department 10/10/22 4:00 PM TESSA SANCHEZ During your visit today, we recorded the following information about you: Tessa Sanchez MD 10/10/2022 8:34 PM Signed #POD 6 weeks Surgery: right ankle arthroscopy, excision OCD medial talus, microfracture of talus, synovectomy, surgeon monitored fluoroscopy on 08/28/22 She is NWB, in boot and using scooter. She is achy today. Dressings: NA Incision: dry/intact/well-appro ximated, no redness Sutures: NA Drain: NA Pin sites: NA Right ankle pain: 8/10 - she feels this across the top of her ankle, more pain with foot dependent Calf assessment: soft, non-tender, no complaints of pain Concerns: none currently Followup and plan: Patient will work on range of motion and attend more physical therapy. 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 1 in the morning, 1 in the after, 2 at hs prn for back pain - sertraline (ZOLOFT) 50 mg tablet Take 50 mg by mouth once daily. 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 Encounter Status:Closed by TESSA SANCHEZ on 10/10/22 Normal [facility] Shayy 09-26-2022 CNPN Telephone (ORAVON) PRISCILLAEDITH Bong ([id number]) 1995 F Date Time Provider Department 09/26/22 TESSA SANCHEZ ORAGNES During your visit today, we recorded the following information about you: Rita Nitin Tidwell 09/26/2022 11:18 AM Signed Patient requesting to speak with provider or staff in regards to right leg pain. She is having pain from her toes up to her knee. Her right ankle surgery was 08/28/22 and questions if pain is normal? Patient is to start therapy today at 6 pm. Patient requesting a return call through #[phone] or #[phone]. The second number is her boyfriends line, Elias. Patient gives okay to leave message with Elias if needed. Please advise. Lizzette Adams RN 09/28/2022 2:23 PM Signed I spoke with Kathie on 09/26/22. Lizzette Adams RN Allergies As of Date: 09/26/2022 (No Known Allergies) Date Reviewed: 09/12/2022 Reviewed by: Lizzette Adams RN - Fully Assessed Reason for Visit: Patient Question [8487] Prescriptions as of 09/28/2022 - predniSONE (DELTASONE) 20 mg tablet Take 1 tablet by mouth three times daily. - cyclobenzaprine (FLEXERIL) 5 mg tablet Take 1 tablet by mouth three times daily as needed. 1 in the morning, 1 in the after, 2 at hs prn for back pain - sertraline (ZOLOFT) 50 mg tablet Take 50 mg by mouth once daily. 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 Anxiety and depression [F41.9, F32.A] 08/14/2022 PTSD (post-traumatic stress disorder) [F43.10] 08/14/2022 BMI 40.0-44.9, adult (HCC) [Z68.41] 08/14/2022 History of palpitations [Z87.898] 08/14/2022 Former smoker [Z87.891] 08/14/2022 History of syncope [Z87.898] 08/14/2022 Difficult intravenous access [Z78.9] 08/14/2022 Anemia [D64.9] 08/14/2022 Encounter Status:Closed by LIZZETTE ADAMS RN on 09/28/22 [facility] CNOVon 09-12-2022 CNOV Office Visit (ORAVON ) EDITH WELLS ([id number]) 1995 F Date Time Provider Department 09/12/22 3:45 PM TESSA SANCHEZ During your visit today, we recorded the following information about you: Tessa Sanchez MD 09/12/2022 8:06 PM Signed POD #15 Surgery: right ankle arthroscopy, excision OCD medial talus, microfracture of talus, synovectomy, surgeon monitored fluoroscopy on 08/28/22 She is feeling well today, Dressings: short leg non weight bearing cast removed to check incision and remove sutures and replaced with her own tall aircast-type boot Incision: dry/intact/well-appro ximated, no redness Sutures: removed today Drain: NA Pin sites: NA Right ankle pain: 0-4/10 Calf assessment: soft, non-tender, no complaints of pain Concerns: none currently Followup and plan: She will start working with PT for ankle ROM and strengthening and follow up in 4 weeks. 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 - cyclobenzaprine (FLEXERIL) 5 mg tablet Take 1 tablet by mouth three times daily as needed. 1 in the morning, 1 in the after, 2 at hs prn for back pain - sertraline (ZOLOFT) 50 mg tablet Take 50 mg by mouth once daily. 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 after surgery on 08/28/22 until no longer needed. - keTORolac (TORADOL) 10 mg tablet (Discontinued) Take 1 tablet by mouth every 6 hours as needed. for moderate level of postoperative pain after surgery on 08/28/22. - cephALEXin (KEFLEX) 500 mg capsule (Discontinued) Take 1 capsule by mouth four times daily. Encounter Status:Closed by TESSA SANCHEZ on 09/12/22 [facility] Office Visit (ORAVON ) EDITH WELLS ([id number]) 1995 F Date Time Provider Department 09/12/22 3:00 PM CAST TECH AGNES WRIGHT During your visit today, we recorded the following information about you: Alfred Campo Cast 09/12/2022 4:10 PM Signed PT ASSESSMENT - CASTING ROOM Edith presents for cast removal. Applied pneumatic aircast walker(HAD PRIOR TO SURGERY) to Right leg non-weight bearing Patient has been instructed in Care of boot.. 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 - cyclobenzaprine (FLEXERIL) 5 mg tablet Take 1 tablet by mouth three times daily as needed. 1 in the morning, 1 in the after, 2 at hs prn for back pain - sertraline (ZOLOFT) 50 mg tablet Take 50 mg by mouth once daily. 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.2*2022 Anxiety and depression [F41.9, F32.A] 08/14/2022 PTSD (post-traumatic stress disorder) [F43.10] 08/14/2022 BMI 40.0-44.9, adult (HCC) [Z68.41] 08/14/2022 History of palpitations [Z87.898] 08/14/2022 Former smoker [Z87.891] 08/14/2022 History of syncope [Z87.898] 08/14/2022 Difficult intravenous access [Z78.9] 08/14/2022 Anemia [D64.9] 08/14/2022 Encounter Status:Closed by [facility]FR[facility] EDITH WELLS ([id number]) 1995 F Date Time Provider Department 09/03/22 TSESA SANCHEZ During your visit today, we recorded the following information about you: Amparo Guillory RN 09/03/2022 12:26 PM Signed The pt is calling. She had surgery on her ankle last Saturday. She states she is in a lot of pain there is a lot of swelling in her ankle, the cast feels very tight and she has some numbness and tingling. Last night her toes were very swollen and purplish in color. Today they are a more normal color but still have a hint of purple. She did keep her leg elevated since 2 pm yesterday but still feels like there is a lot of swelling. She is taking Tylenol, Toradol, and Oxycodone as directed. Last night would have rated the pain a 10, today rates it an 8. Her next appt is not until 09/12. Please advise. Lizzette Adams RN 09/04/2022 11:47 AM Addendum I spoke at length with Edith. I offered cast change today or tomorrow morning. She asked to change her anti-inflammatory medication to a different medication that would decrease the swelling better. I discussed aniti-inflammatory meds with her and told her the best action for decreasing swelling is elevation, staying NWB. Dr. Sanchez advised that she could change to OTC ibuprofen if she wanted to try that for pain relief, she really wanted to try that. She was advised that if swelling continued, we were open to having her come here, even though it is a distance, to come in for a cast change and check of her incisions. Lizzette Adams RN Allergies As of Date: 09/03/2022 (No Known Allergies) Date Reviewed: 09/03/2022 Reviewed by: Lizzette Adams RN - Fully Assessed Reason for Visit: post op right ankle swelling and pain [Other] Prescriptions as of 09/14/2022 - predniSONE (DELTASONE) 20 mg tablet Take 1 tablet by mouth three times daily. - cyclobenzaprine (FLEXERIL) 5 mg tablet Take 1 tablet by mouth three times daily as needed. 1 in the morning, 1 in the after, 2 at hs prn for back pain - sertraline (ZOLOFT) 50 mg tablet Take 50 mg by mouth once daily. 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.2*2022 Anxiety and depression [F41.9, F32.A] 08/14/2022 PTSD (post-traumatic stress disorder) [F43.10] 08/14/2022 BMI 40.0-44.9, adult (HCC) [Z68.41] 08/14/2022 History of palpitations [Z87.898] 08/14/2022 Former smoker [Z87.891] 08/14/2022 History of syncope [Z87.898] 08/14/2022 Difficult intravenous access [Z78.9] 08/14/2022 Anemia [D64.9] 08/14/2022 Encounter Status:Closed by AMPARO GUILLORY RN on 09/14/22 [facility] Shayy 09-02-2022 YAN Telephone (SICU) EDITH WELLS ([id number]) 1995 F Date Time Provider Department 09/02/22 EYAD SHELBY During your visit today, we recorded the following information about you: Eyad Shelby MD 09/02/2022 5:38 PM Signed Patient called the orthopedic surgery meet me line. She reported episodic numbness and paresthesias that have been occurring on and off since Saturday. She reported they were present at the time and they were nonspecific. She stated she was able to wiggle her toes a little bit. She was not able to reach her toes to test passive stretch pain. She reported she did have some pain and that her cast felt tight. When asked, she stated she had been somewhat elevating her foot. I reinforced the importance of elevating her foot and recommended that she do so on 3 or so pillows to make sure she was significantly above the level of the heart. I recommended that she do that for 23 hours/day given the increased risk of swelling in the setting of a postoperative state for foot and ankle surgery. I stated that if her decree sensation/paresthesia s and pain got worse or did not improve after 30 minutes of strict elevation that she should present quickly to her local emergency department or urgent care for further evaluation and possible adjustment of her cast. The patient was in agreement with this plan and all questions were answered. Kristina Shelby MD Orthopaedic Surgery, PGY-3 Allergies As of Date: 09/02/2022 (No Known Allergies) Date Reviewed: 08/28/2022 Reviewed by: Milana Stanford RN - Fully Assessed Reason for Visit: Patient Question [0386] Prescriptions as of 09/02/2022 - acetaminophen (TYLENOL) 325 mg tablet Take 2 tablets by mouth every 4 hours while awake. after surgery on 08/28/22 until no longer needed. - keTORolac (TORADOL) 10 mg tablet Take 1 tablet by mouth every 6 hours as needed. for moderate level of postoperative pain after surgery on 08/28/22. - cephALEXin (KEFLEX) 500 mg capsule Take 1 capsule by mouth four times daily. - oxyCODONE IR (ROXICODONE) 5 mg immediate release tablet Take 1 tablet by mouth every 6 hours as needed for pain for up to 7 days. for more severe postop pain after surgery. - predniSONE (DELTASONE) 20 mg tablet Take 1 tablet by mouth three times daily. - cyclobenzaprine (FLEXERIL) 5 mg tablet Take 1 tablet by mouth three times daily as needed. 1 in the morning, 1 in the after, 2 at hs prn for back pain - sertraline (ZOLOFT) 50 mg tablet Take 50 mg by mouth once daily. 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.2*2022 Anxiety and depression [F41.9, F32.A] 08/14/2022 PTSD (post-traumatic stress disorder) [F43.10] 08/14/2022 BMI 40.0-44.9, adult (HCC) [Z68.41] 08/14/2022 History of palpitations [Z87.898] 08/14/2022 Former smoker [Z87.891] 08/14/2022 History of syncope [Z87.898] 08/14/2022 Difficult intravenous access [Z78.9] 08/14/2022 Anemia [D64.9] 08/14/2022 Encounter Status:Closed by EYAD SHELBY on 09/02/22 [facility] CNNURSEon 08-29-2022 CNNURSE Nurse Visit (ORAVON) EDITH WELLS ([id number]) 1995 F Date Time Provider Department 08/29/22 3:45 PM NURSE ORTH [facility] During your visit today, we recorded the following information about you: Lizzette Adams RN 09/03/2022 8:14 AM Signed POD #1 Surgery: right ankle arthroscopy, excision OCD medial talus, microfracture of talus, synovectomy, surgeon monitored fluoroscopy on 08/28/22 She is recovering well so far, reasonable postop ankle swelling, pain controlled. Dressings: postop splint and dressings removed to check incision and replaced with short leg non weight bearing cast Incision: dry/intact/well-appro ximated, no redness Sutures: intact Drain: NA Pin sites: NA Right ankle pain: 0-2/10 Calf assessment: soft, non-tender, no complaints of pain Concerns: none currently Followup and plan: at 2-3 weeks postop for cast change, incision check and suture/zipline removal Patient's postop care today was delivered under Dr. Sanchez' postop care plan. Dr. Qureshi was the physician present today. 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 after surgery on 08/28/22 until no longer needed. - keTORolac (TORADOL) 10 mg tablet Take 1 tablet by mouth every 6 hours as needed. for moderate level of postoperative pain after surgery on 08/28/22. - cephALEXin (KEFLEX) 500 mg capsule Take 1 capsule by mouth four times daily. - oxyCODONE IR (ROXICODONE) 5 mg immediate release tablet Take 1 tablet by mouth every 6 hours as needed for pain for up to 7 days. for more severe postop pain after surgery. - predniSONE (DELTASONE) 20 mg tablet Take 1 tablet by mouth three times daily. - cyclobenzaprine (FLEXERIL) 5 mg tablet Take 1 tablet by mouth three times daily as needed. 1 in the morning, 1 in the after, 2 at hs prn for back pain - sertraline (ZOLOFT) 50 mg tablet Take 50 mg by mouth once daily. Problem List As Of Date 08/29/2022 Noted Resolved Lightheadedness [R42] 09/02/2018 Palpitations [R00.2] 09/02/2018 Osteochondritis dissecans of right talus [M93.2*2022 Anxiety and depression [F41.9, F32.A] 08/14/2022 PTSD (post-traumatic stress disorder) [F43.10] 08/14/2022 BMI 40.0-44.9, adult (HCC) [Z68.41] 08/14/2022 History of palpitations [Z87.898] 08/14/2022 Former smoker [Z87.891] 08/14/2022 History of syncope [Z87.898] 08/14/2022 Difficult intravenous access [Z78.9] 08/14/2022 Anemia [D64.9] 08/14/2022 Encounter Status:Closed by LIZZETTE ADAMS RN on 09/03/22 [facility] CNOVon 08-29-2022 CNOV Office Visit (ORAVON ) EDITH WELLS ([id number]) 1995 F Date Time Provider Department 08/29/22 3:00 PM CAST TECH AGNES WRIGHT During your visit today, we recorded the following information about you: Alfredconcha Campo Cast 08/29/2022 3:44 PM Signed PT ASSESSMENT - CASTING ROOM Edith presents for Application of cast. Applied short cast: to Right leg non-weight bearing Patient has been instructed in Care of cast.. 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 after surgery on 08/28/22 until no longer needed. - keTORolac (TORADOL) 10 mg tablet Take 1 tablet by mouth every 6 hours as needed. for moderate level of postoperative pain after surgery on 08/28/22. - cephALEXin (KEFLEX) 500 mg capsule Take 1 capsule by mouth four times daily. - oxyCODONE IR (ROXICODONE) 5 mg immediate release tablet Take 1 tablet by mouth every 6 hours as needed for pain for up to 7 days. for more severe postop pain after surgery. - predniSONE (DELTASONE) 20 mg tablet Take 1 tablet by mouth three times daily. - cyclobenzaprine (FLEXERIL) 5 mg tablet Take 1 tablet by mouth three times daily as needed. 1 in the morning, 1 in the after, 2 at hs prn for back pain - sertraline (ZOLOFT) 50 mg tablet Take 50 mg by mouth once daily. Problem List As Of Date 08/29/2022 Noted Resolved Lightheadedness [R42] 09/02/2018 Palpitations [R00.2] 09/02/2018 Osteochondritis dissecans of right talus [M93.2*2022 Anxiety and depression [F41.9, F32.A] 08/14/2022 PTSD (post-traumatic stress disorder) [F43.10] 08/14/2022 BMI 40.0-44.9, adult (HCC) [Z68.41] 08/14/2022 History of palpitations [Z87.898] 08/14/2022 Former smoker [Z87.891] 08/14/2022 History of syncope [Z87.898] 08/14/2022 Difficult intravenous access [Z78.9] 08/14/2022 Anemia [D64.9] 08/14/2022 Encounter Status:Closed by ALFRED KEARNS on 08/29/22 [facility] ANES POSTPROC EVALon 022 ANES POSTPROC EVAL HNO ID: [id number] Author: Mike Alcantar MD Service: Anesthesiology Author Type: Anesthesiologist Type: Anesthesia Postprocedure Evaluation Filed: 08/28/2022 1:05 PM Note Text: POST ANESTHESIA EVALUATION NOTE : 1995 Procedure Summary Date: 08/28/22 Room / Location: [address] Anesthesia Start: 1029 Anesthesia Stop: 1149 Procedure: ARTHROSCOPY ANKLE EXCISION 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) Diagnosis: Osteochondritis dissecans of right talus (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 Post Anesthesia Patient Status Patient Evaluation: PACU. PACU/ICU Patient Condition: stable. Anticipated Disposition: phase 2 then home. Neurological Status: aware and responsive. Pulmonary Status: breathing comfortably on room air Airway Control: returned to baseline unsupported. Cardiovascular Status: stable. Pain Management: clinically adequate Postoperative Hydration: acceptable. Intraoperative Events: no significant anesthesia events Recommendation: continue current plan of care and further care per PACU/ICU/floor team. Other Remarks: C/o pain in the saphenous nerve distribution in PACU. Improved after US guided adductor canal catheter placement.. Anesthesia Observations No Documentation SIGNATURE: Mike Alcantar MD PATIENT NAME: Edith Wells DATE: August 28, 2022 TIME: 1:04 PM CSN: [id number] [facility] ANES PRE-OPon 08-28-2022 ANES PRE-OP HNO ID: [id number] Author: Mike Alcantar MD Service: Anesthesiology Author Type: Anesthesiologist Type: Anesthesia Preprocedure Evaluation Filed: 08/28/2022 9:33 AM Note Text: ANESTHESIOLOGY DAY OF SURGERY NOTE : 1995 Procedure Information Date/Time: 08/28/22 1000 Procedure: ARTHROSCOPY ANKLE EXCISION 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) Location: [address] / [facility] Surgeons: Tessa Sanchez MD Estimated body mass index is 44.26 kg/m? as calculated from the following: Height as of 08/14/22: 165.1 cm (5' 5 ). Weight as of 08/14/22: 120.7 kg (266 lb). Most recent hematocrit and potassium results: Hematocrit 37.6 08/24/2022 Potassium 3.8 08/15/2022 Relevant Problems NEURO-PSYCH (+) History of palpitations (+) History of syncope Psychiatry (+) PTSD (post-traumatic stress disorder) Other (+) BMI 40.0-44.9, adult (HCC) I - PHYSICAL EVALUATION AIRWAY Patient intubated: No. Tracheostomy tube not present Mallampati: II. TM distance: >3 FB. Neck ROM: full ROM without neurological symptoms. Mouth opening: adequate. Short neck: no. Thick neck: no DENTAL Dental findings: teeth intact. Additional exam findings: yes. CARDIOVASCULAR Normal cardiovascular observations. Rhythm: regular Rate: normal PULMONARY Normal pulmonary observations. Breath sounds clear to auscultation. II - ANESTHESIA PLAN ASA Score: 2 Anesthetic Plan: general Airway type: LMA NPO Status: adequate Monitoring plan: Standard ASA. Postoperative analgesic plan: multimodal analgesia, peripheral nerve catheter and peripheral nerve block. Informed Consent Anesthetic risks, benefits, alternatives, personnel and consent discussed: yes. Patient / Responsible Libertarian agrees to proceed: yes Patient / Surrogate agrees to blood products: blood products not planned Significant changes in the patient condition since the History and Physical, not otherwise documented in primary service progress note: no. Potential Anesthesia issues that may suggest increased risk of complications or contraindication to planned procedure: none. Vitals Value Taken Time BP 144/77 08/28/22 0930 Pulse 59 08/28/2231 Resp 16 08/28/2230 Temp 36.4 ?C (97.5 ?F) 08/28/22 09 SpO2 97 % 08/28/22930 Vitals shown include unvalidated device data. Facility-Administered Medications as of 08/28/2022 Medication Dose Route Frequency - acetaminophen 1,000 mg tab(s) (TYLENOL) 1,000 mg ORAL Pre-Op Once - promethazine 12.5 mg tab(s) (PHENERGAN) 12.5 mg ORAL Pre-Op Once - lactated ringers iv infusion 30 mL/hr INTRAVENOUS CONTINUOUS - lidocaine 10 mg/mL (1 %) 1-2 mg injection (XYLOCAINE) 0.1-0.2 mL INTRADERMAL PRN - lactated ringers iv infusion 5-30 mL/hr INTRAVENOUS CONTINUOUS - ceFAZolin iv piggyback 2 g in D5W (iso-osmotic) 100 mL (ANCEF) 2 g INTRAVENOUS Pre-Op Once - ropivacaine (PF) 1,500 mg in empty bag Total Volume 750 mL (NAROPIN) PERIPHERAL NERVE CATHETER CONTINUOUS Outpatient Medications as of 08/28/2022 Medication Sig - sertraline (ZOLOFT) 50 mg tablet Take 50 mg by mouth once daily. I have interviewed and examined the patient. I have reviewed the medical record and/or the pre-anesthesia evaluation, pertinent labs, and test results. This contains updated information obtained within 48 hours of Surgery/Procedure. SIGNATURE: Mike Alcantar MD PATIENT NAME: Edith Wells DATE: August 28, 2022 TIME: 9:32 AM CSN: [id number] [facility] OPERATIVE NOon 08-28-2022 OPERATIVE NO HNO ID: [id number] Author: Tessa Sanchez MD Service: Orthopaedic Surgery Author Type: Physician Type: Operative Report Filed: 08/28/2022 1:09 PM Note Text: OPERATIVE REPORT LOG ID: [id number] Surgery Date: 08/28/2022 Incision/Procedure Start Time: 11:01 AM Incision Close/Procedure End Time: 11:32 AM Procedure Performed: Procedure(s) (LRB): ARTHROSCOPY ANKLE EXCISION OSTEOCHONDRAL DEFECT MEDIAL TALUS Microfracture of talus Synovectomy Surgeon monitored fluoroscopy Surgeon(s)/Procedural ist(s) and General Accounting Clerk(s): Surgeon(s) and Role: * Tessa Sanchez MD - Primary Physician General Accounting Clerk: Mercedes Gale PA-C, was essential in patient positioning, application of noninvasive traction, helping to operate fluoroscopy, surgical closure, postoperative bandaging and splinting Anesthesia: General Estimated Blood Loss: 0 ml Drains: None Specimen: Debridement of OCD and synovectomy Complications: None Pre-Operative Diagnosis: 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 Sign in was performed with the operative team. Prophylactic IV antibiotics were administered. The patient was brought to the operating room, placed upon the operating table and given an anesthetic. Following successful levels of anesthesia, she was appropriately padded, positioned and secured to the table. The surgical leg was then prepped and draped in the usual sterile fashion. An Esmarch bandage was utilized to exsanguinate the limb and tourniquet raised on the thigh to 300 mmHg. Ankle Arthroscopy, OCD debridement, Microfracture,Synovec aleena: Non Invasive traction was utilized Flouroscopy was utilized to identify the joint line after distraction Anteromedial and anterolateral portals were created protecting the tibialis anterior and superficial peroneal nerve branches respectively Complete diagnostic ankle arthroscopy was performed. The osteochondral defect was identified. It was on the medial talus The defect measured 10 x 15 mm The defect was removed. The base and boundries of the defect were debrided and smoothed. The defect was microfractured. Synovectomy was performed The ankle was thoroughly irrigated and drained. Traction was released The portals were closed with 4-0 nylon Flouroscopy additionally confirmed excellent debridement. A sterile bulky bandage and posterior splint were applied. The patient was taken to the RR in good condition. The PA helped with all aspects of the case. There was no qualified resident to assist SIGNATURE: Tessa Sanchez MD PATIENT NAME: Edith Wells DATE: August 28, 2022 TIME: 1:04 PM PHONE: [phone] Normal [facility] CBC panel Auto (Bld)on 08-24 Erythrocyte distribution width (RBC) [Ratio] 13.3 % Normal 11.5-15.0 [facility] Comment on above: Order Comment: Speci men Type: BLOOD SPECIMENOrdering Facility: [facility] Address: [address] [place] [address] Performed By: #### 5 8410-2 ####[facility] [id number] [place] [address] Hematocrit (Bld) [Volume fraction] 37.6 % Normal 36.0-46.0 [facility] Comment on above: Order Comment: Speci men Type: BLOOD SPECIMENOrdering Facility: [facility] Address: [address] [place] [address] Performed By: #### 5 8410-2 ####[facility] LABCLIA [id number] [place] [address] Hemoglobin (Bld) [Mass/Vol] 12.4 g/dL Normal 11.5-15.5 [facility] Comment on above: Order Comment: Speci men Type: BLOOD SPECIMENOrdering Facility: [facility] Address: [address] [place] [address] Performed By: #### 5 8410-2 ####[facility] LABCLIA [id number] [place] [address] MCH (RBC) [Entitic mass] 30.4 pg Normal 26.0-34.0 [facility] Comment on above: Order Comment: Speci men Type: BLOOD SPECIMENOrdering Facility: [facility] Address: [address] [place] [address] Performed By: #### 5 8410-2 ####[facility] LABCLIA [id number] [place] [address] MCHC (RBC) [Mass/Vol] 33.0 g/dL Normal 30.5-36.0 [facility] Comment on above: Order Comment: Speci men Type: BLOOD SPECIMENOrdering Facility: [facility] Address: [address] [place] [address] Performed By: #### 5 8410-2 ####[facility] LABCLIA [id number] [place] [address] MCV (RBC) [Entitic vol] 92.2 fL Normal 80.0-100.0 [facility] Comment on above: Order Comment: Speci men Type: BLOOD SPECIMENOrdering Facility: [facility] Address: [address] [place], [place] [id number] Performed By: #### 5 8410-2 ####[facility] LABCLIA [id number] [place] [address] Nucleated RBC (Bld) [#/Vol] 10*3/uL Normal <0.01 [facility] Comment on above: Order Comment: Speci men Type: BLOOD SPECIMENOrdering Facility: [facility] Address: [address] [place] [address] Performed By: #### 5 8410-2 ####[facility] LABCLIA [id number] [place] [address] Platelet mean volume (Bld) [Entitic vol] 9.3 fL Normal 9.0-12.7 [facility] Comment on above: Order Comment: Speci men Type: BLOOD SPECIMENOrdering Facility: [facility] Address: [address] [place] [address] Performed By: #### 5 8410-2 ####[facility] LABIA [id number] [place] [address] Platelets (Bld) [#/Vol] 386 10*3/uL Normal 150-400 [facility] Comment on above: Order Comment: Speci men Type: BLOOD SPECIMENOrdering Facility: [facility] Address: [address] [place], [place] [id number] Performed By: #### 5 8410-2 ####[facility] LABCLIA [id number] [place] [address] RBC (Bld) [#/Vol] 4.08 10*6/uL Normal 3.90-5.20 [facility] Comment on above: Order Comment: Speci men Type: BLOOD SPECIMENOrdering Facility: [facility] Address: [address] [place] [address] Performed By: #### 5 8410-2 ####[facility] LABCLIA [id number] [place] [address] WBC (Bld) [#/Vol] 8.69 10*3/uL Normal 3.70-11.00 [facility] Comment on above: Order Comment: Speci men Type: BLOOD SPECIMENOrdering Facility: [facility] Address: [address] [place] [address] Performed By: #### 5 8410-2 ####[facility] LABCLIA [id number] [place] [address] Erythrocyte distribution width (RBC) [Ratio] 13.3 % 11.5 - 15.0 % [facility] Hematocrit (Bld) [Volume fraction] 37.6 % 36.0 - 46.0 % [facility] Hemoglobin (Bld) [Mass/Vol] 12.4 g/dL 11.5 - 15.5 g/dL [facility] MCH (RBC) [Entitic mass] 30.4 pg 26.0 - 34.0 pg [facility] MCHC (RBC) [Mass/Vol] 33.0 g/dL 30.5 - 36.0 g/dL [facility] MCV (RBC) [Entitic vol] 92.2 fL 80.0 - 100.0 fL [facility] Nucleated RBC (Bld) [#/Vol] <0.01 k/uL [facility] Platelet mean volume (Bld) [Entitic vol] 9.3 fL 9.0 - 12.7 fL [facility] Platelets (Bld) [#/Vol] 386 10*3/uL 150 - 400 k/uL [facility] RBC (Bld) [#/Vol] 4.08 10*6/uL 3.90 - 5.2 0 m/uL [facility] WBC (Bld) [#/Vol] 8.69 10*3/uL 3.70 - 11. 00 k/uL [facility] Basic metabolic 2000 panelon 08-15-2022 Anion gap [Moles/Vol] 8 mmol/L Low -18 [facility] Comment on above: Order Comment: Speci men Type: BLOOD SPECIMENOrdering Facility: [facility] Address: [address] [place], [place] [id number] Performed By: #### 2 4321-2 ####[facility] LABCLIA [id number] [place] [address] Calcium [Mass/Vol] 9.4 mg/dL Normal 8.5-10.2 [facility] Comment on above: Order Comment: Speci men Type: BLOOD SPECIMENOrdering Facility: [facility] Address: [address] [place] [address] Performed By: #### 2 4321-2 ####[facility] LABCLIA [id number] [place] [address] Chloride [Moles/Vol] 104 mmol/L Normal 97-105 [facility] Comment on above: Order Comment: Speci men Type: BLOOD SPECIMENOrdering Facility: [facility] Address: [address] [place] [address] Performed By: #### 2 4321-2 ####[facility] LABCLIA [id number] [place] [address] CO2 [Moles/Vol] 25 mmol/L Normal 22-30 [facility] Comment on above: Order Comment: Speci men Type: BLOOD SPECIMENOrdering Facility: [facility] Address: [address] [place] [address] Performed By: #### 2 4321-2 ####[facility] LABCLIA [id number] [place] [address] Creatinine [Mass/Vol] 0.60 mg/dL Normal 0.58-0.96 [facility] Comment on above: Order Comment: Speci men Type: BLOOD SPECIMENOrdering Facility: [facility] Address: [address] [place] [address] Performed By: #### 2 4321-2 ####[facility] LABCLIA [id number] [place] [address] ESTIMATED GLOMERULAR FILTRATION RATE 126 mL/min/1.73m??? Normal >=60 [facility] Comment on above: Order Comment: Getachew hamilton Type: BLOOD SPECIMENOrdering Facility: [facility] Address: [address] [id number] Result Comment: Brandy mated Glomerular Filtration Rate (eGFR) is calculated using the 2020 CKD-EPI creatinine equation. This equation utilizes serum creatinine, sex, and age as parameters. The creatinine assay has traceable calibration to isotope dilution-mass spectrometry. Refer to KDIGO guidelines for clinical interpretation. In patients with unstable renal function, e.g. those with acute kidney injury, the eGFR may not accurately reflect actual GFR. Performed By: #### 2 4321-2 ####[facility] LABCLIA [id number] [place] [address] Glucose [Mass/Vol] 109 mg/dL High 74-99 [facility] Comment on above: Order Comment: Getachew hamilton Type: BLOOD SPECIMENOrdering Facility: [facility] Address: [address] Result Comment: The [place] [employer] (ADA) provides guidance for cutoff values for fasting glucose and random glucose. The ADA defines fasting as no caloric intake for at least 8 hours. Fasting plasma glucose results between 100 to 125 mg/dL indicate increased risk for diabetes (prediabetes). Fasting plasma glucose results greater than or equal to 126 mg/dL meet the criteria for diagnosis of diabetes. In the absence of unequivocal hyperglycemia, results should be confirmed by repeat testing. In a patient with classic symptoms of hyperglycemia or hyperglycemic crisis, random plasma glucose results greater than or equal to 200 mg/dL meet the criteria for diagnosis of diabetes. Reference: Standards of Medical Care in Diabetes 2016, [place] [employer]. Diabetes Care. 2016.39(Suppl 1). Performed By: #### 2 4321-2 ####[facility] LABCLIA [id number] [place] [address] Potassium [Moles/Vol] 3.8 mmol/L Normal 3.7-5.1 [facility] Comment on above: Order Comment: Getachew hamilton Type: BLOOD SPECIMENOrdering Facility: [facility] Address: [address] [phone] Performed By: #### 2 4321-2 ####[facility] LABCLIA [id number] [place] [address] Sodium [Moles/Vol] 137 mmol/L Normal 136-144 [facility] Comment on above: Order Comment: Speci men Type: BLOOD SPECIMENOrdering Facility: [facility] Address: [address] [place] [address] Performed By: #### 2 4321-2 ####[facility] LABCLIA [id number] [place] [address] Urea nitrogen [Mass/Vol] 20 mg/dL Normal 7-21 [facility] Comment on above: Order Comment: Speci men Type: BLOOD SPECIMENOrdering Facility: [facility] Address: [address] [place] [address] Performed By: #### 2 4321-2 ####[facility] LABCLIA [id number] [place] [address] CBC panel Auto (Bld)on 08-15 Erythrocyte distribution width (RBC) [Ratio] 13.5 % Normal 11.5-15.0 [facility] Comment on above: Order Comment: Speci men Type: BLOOD SPECIMENOrdering Facility: [facility] Address: [address] [place] [address] Performed By: #### 5 8410-2 ####[facility] LABCLIA [id number] [place] [address] Hematocrit (Bld) [Volume fraction] 39.9 % Normal 36.0-46.0 [facility] Comment on above: Order Comment: Speci men Type: BLOOD SPECIMENOrdering Facility: [facility] Address: [address] [place] [address] Performed By: #### 5 8410-2 ####[facility] LABCLIA [id number] [place] [address] Hemoglobin (Bld) [Mass/Vol] 13.4 g/dL Normal 11.5-15.5 [facility] Comment on above: Order Comment: Speci men Type: BLOOD SPECIMENOrdering Facility: [facility] Address: [address] [place] [address] Performed By: #### 5 8410-2 ####[facility] LABCLIA [id number] [place] [address] MCH (RBC) [Entitic mass] 30.7 pg Normal 26.0-34.0 [facility] Comment on above: Order Comment: Speci men Type: BLOOD SPECIMENOrdering Facility: [facility] Address: [address] [place] [address] Performed By: #### 5 8410-2 ####[facility] LABCLIA [id number] [place] [address] MCHC (RBC) [Mass/Vol] 33.6 g/dL Normal 30.5-36.0 [facility] Comment on above: Order Comment: Speci men Type: BLOOD SPECIMENOrdering Facility: [facility] Address: [address] [place] [address] Performed By: #### 5 8410-2 ####[facility] LABCLIA [id number] [place] [address] MCV (RBC) [Entitic vol] 91.5 fL Normal 80.0-100.0 [facility] Comment on above: Order Comment: Speci men Type: BLOOD SPECIMENOrdering Facility: [facility] Address: [address] [place], [place] [id number] Performed By: #### 5 8410-2 ####[facility] LABIA [id number] [place] [address] Nucleated RBC (Bld) [#/Vol] 10*3/uL Normal <0.01 [facility] Comment on above: Order Comment: Speci men Type: BLOOD SPECIMENOrdering Facility: [facility] Address: [address] [place], [place] [id number] Performed By: #### 5 8410-2 ####[facility] LABCLIA [id number] [place] [address] Platelet mean volume (Bld) [Entitic vol] 9.2 fL Normal 9.0-12.7 [facility] Comment on above: Order Comment: Speci men Type: BLOOD SPECIMENOrdering Facility: [facility] Address: [address] [place] [address] Performed By: #### 5 8410-2 ####[facility] LABCLIA [id number] [place] [address] Platelets (Bld) [#/Vol] 409 10*3/uL High 150-400 [facility] Comment on above: Order Comment: Speci men Type: BLOOD SPECIMENOrdering Facility: [facility] Address: [address] [place] [address] Performed By: #### 5 8410-2 ####[facility] LABCLIA [id number] [place] [address] RBC (Bld) [#/Vol] 4.36 10*6/uL Normal 3.90-5.20 [facility] Comment on above: Order Comment: Speci men Type: BLOOD SPECIMENOrdering Facility: [facility] Address: [address] [place] [address] Performed By: #### 5 8410-2 ####[facility] LABCLIA [id number] [place] [address] WBC (Bld) [#/Vol] 16.45 10*3/uL High 3.70-11.00 [facility] Comment on above: Order Comment: Speci men Type: BLOOD SPECIMENOrdering Facility: [facility] Address: [address] [place] [address] Performed By: #### 5 8410-2 ####[facility] LABCLIA [id number] [place] [address] Shayy 08-15-2022 [place] Telephone (BRENT) EDITH WELLS ([id number]) 1995 F Date Time Provider Department 08/15/22 TESSA SANCHEZ During your visit today, we recorded the following information about you: Kasi Mathur PA-C 08/15/2022 9:48 AM Signed Good morning Dr. 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 She had her pre-op labs this morning which revealed an elevated WBC count. She took a medrol dose pack on 08/02 for back pain and had just started Prednisone 60 mg daily for 5 days for ongoing back pain. I suspect her elevated WBC level is from the steroids, but wanted to review with you. Can you please review results and advise if you have concerns proceeding with upcoming surgery? CBC with diff: WBC 16.45 08/15/2022 RBC 4.36 08/15/2022 Hemoglobin 13.4 08/15/2022 Hematocrit 39.9 08/15/2022 MCV 91.5 08/15/2022 MCH 30.7 08/15/2022 MCHC 33.6 08/15/2022 RDW-CV 13.5 08/15/2022 Platelet Count 409 08/15/2022 MPV 9.2 08/15/2022 Thank you for your time, Kasi Mathur PA-C PACC Kasi Mathur PA-C 08/16/2022 8:38 AM Signed Response from Dr. Sanchez's team: Alyx Erika You 19 hours ago (1:29 PM) NG Dr. Sanchez agrees with the medrol/ prednisone thoughts. If she is not infectious, sick-feeling, could re-draw closer to surgery date to see levels. Telephone call placed to patient. Advised that her WBC level is elevated, but we believe it is from the current steroids she is taking for her back pain. She denies having signs or symptoms of infection at this time. She has two more days of steroid treatment. We will order a repeat CBC for patient to complete on 08/24/2022 which will give results prior to surgery. If anything changes or she develops signs or symptoms of infection, she will call me. Kasi Mathur PA-C 08/24/2022 1:[address] afternoon [address] Sanchez, Just wanted to keep you in the loop. Repeat WBC today was normal. Lab Value Units Date High Low HB 12.4 g/dL 08/24/2022 15.5 11.5 HCT 37.6 % 08/24/2022 46.0 36.0 WBC 8.69 k/uL 08/24/2022 11.00 3.70 PLT 386 k/uL 08/24/2022 400 150 NA 137 mmol/L 08/15/2022 144 136 K 3.8 mmol/L 08/15/2022 5.1 3.7 GLUC 109 mg/dL 08/15/2022 99 74 BUN 20 mg/dL 08/15/2022 21 7 CREAT 0.60 mg/dL 08/15/2022 0.96 0.58 PTSEC No results within date range. INR No results within date range. APTT No results within date range. ALT No results within date range. AST No results within date range. TBILI No results within date range. TSH No results within date range. Thank you! Kasi Mathur PA-C Allergies As of Date: 08/15/2022 (No Known Allergies) Date Reviewed: 08/14/2022 Reviewed by: Kasi Mathur PA-C - Fully Assessed Reason for Visit: Results [95] Preparations For Surgery [898] Primary Visit Diagnosis:Leukocytosi s, unspecified type [D72.829] Order(s):CBC [SQCB] Order #: [id number] FUTURE Prescriptions as of 08/24/2022 - predniSONE (DELTASONE) 20 mg tablet Take 1 tablet by mouth three times daily. - cyclobenzaprine (FLEXERIL) 5 mg tablet Take 1 tablet by mouth three times daily as needed. 1 in the morning, 1 in the after, 2 at hs prn for back pain - sertraline (ZOLOFT) 50 mg tablet Take 50 mg by mouth once daily. 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 Author Type: Physician General Accounting Clerk Type: HANDP Filed: 08/24/2022 1:26 PM Note Text: PREANESTHESIA CONSULT CLINIC TELEHEALTH VISIT Patient has been identified by name and date of : Yes This is a virtual visit using Alternative video platform. It require patient-provider interaction for the medical decision making as documented below. Reason for contact: PACC visit Accompanied by: Self Scheduled Surgery: ARTHROSCOPY ANKLE EXCISION 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 - Right Subjective CHIEF COMPLAINT: Patient presents with: Pre-Op Visit HPI: This is a 27 year old female who presents with right ankle pain since April 2022. She reports intermittent up to 8-9/10 pain that is achy or throbbing quality with prolonged walking. She also sometimes has shooting pain. She was diagnosed with osteochondritis dessicans of right talus and elects to proceed with above procedure. ACTIVE PROBLEM LIST Lightheadedness Palpitations Osteochondritis Dissecans of Right Talus Anxiety and Depression Ptsd (Post-Traumatic Stress Disorder) Bmi 40.0-44.9, Adult (Hcc) History of Palpitations Former Smoker History of Syncope Difficult Intravenous Access Anemia PAST MEDICAL HISTORY Diagnosis Date Back pain BMI 40.0-44.9, adult (HCC) Former smoker PVC's (premature ventricular contractions) PAST SURGICAL HISTORY Procedure Laterality Date PAST SURGICAL HISTORY OF x3 - last 11/2021 TONSILLECTOMY HX FAMILY HISTORY Problem Relation Age of Onset Heart Mother Heart Father Asthma Brother Anesthesia Problems No Family History Social History Tobacco Use Smoking status: Former Packs/day: 0.33 Years: 8.00 Pack years: 2.64 Types: Cigarettes Quit date: 2019 Years since quittin.7 Smokeless tobacco: Never Vaping Use Vaping Use: Never used Substance Use Topics Alcohol use: No Drug use: No ALLERGIES No Known Allergies MEDICATIONS: Current Outpatient Medications Medication Sig predniSONE (DELTASONE) 20 mg tablet Take 1 tablet by mouth three times daily. cyclobenzaprine (FLEXERIL) 5 mg tablet Take 1 tablet by mouth three times daily as needed. 1 in the morning, 1 in the after, 2 at hs prn for back pain sertraline (ZOLOFT) 50 mg tablet Take 50 mg by mouth once daily. No current facility-administered medications for this visit. COVID VACCINATION STATUS: Not vaccinated, prior infection - history of COVID-19 12/2021 had headache, sore throat and aches. Symptoms lasted 10 days. Denies having complications or requiring treatment. Previous infection 09/2021 with more significant symptoms, but did not require hospitalization REVIEW OF SYSTEMS: Pain Assessment: General: No weight loss, malaise or fevers. Neuro: No history of TIA's, stroke, EYE CARE PROFESSIONAL tumor, impaired sensorium, hemiplegia, paraplegia or quadraplegia. No neurological symptoms or problems. Respiratory: Positive for former smoker (quit 2019, 10/30 ppd x 8 years, Negative for Asthma, COPD, Current cough, URI < 2 weeks Cardiovascular: Positive for: bradycardia and history of PVCs - history of Betaxolol tx, history of syncope x2 2018 and 2019 (had low potassium for 1 episode)- no further syncope, Negative for Recent LA, CAD, Chest Pain, CHF, Valvular Heart Disease, DVT/PE, edema, orthopnea, further syncope, palpitations GI: Positive for GERD - takes TUMS prn, Negative for Nausea, Vomiting, Abdominal pain, Hepatitis, Pancreatitis : No history of dysuria, frequency or incontinence,, stones or chronic kidney disease 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 : Denies, Patient's last menstrual period was 07/02/2022. Endocrine: history of medrol dose pack 08/02/2022 and Current Prednisone 60 mg x 5 days for LBP (started yesterday). Denies DM or thyroid disease/symptoms Hematology: Anemia during Oncology: No history of CA metastasis, chemo within 30 days, or radiotherapy within 90 days. Has not lost 10% of body wt in 6 months. No history of oncological symptoms or problems. Psych: Anxiety, Depression, PTSD - on Zoloft at hs. Denies SI/HI Musculoskeletal: Back pain- no numbness/tingling or radiation, see HPI Skin: Negative for lesions, rash and itching. Objective PHYSICAL EXAM: Pulse 60[patient counted[ Ht 5' 5 [patient reported[ (1.65m) Wt 266 lb (120.7kg) LMP 07/02/2022 BMI 44.26 kg/(m2). VIDEO EXAM: (if completed, performed via video enabled technology) GENERAL: alert and appropriate, in no distress, well-hydrated, well nourished, and happy, smiling, interactive SKIN: no rash noted HEAD: normocephalic, no abnormality or lesion noted EYES: no injection NOSE: external nose normal without rhinorrhea NECK: full ROM RESPIRATORY: breathing non-labored and no grunting/flaring/retr actions CHEST: equal chest rise with normal respiratory (more content not included)... Normal [facility] CNCOon 2022 CNCO Letter Text Normal [facility] CNOVon 2022 CNOV Office Visit (ORAVON ) EDITH WELLS ([id number]) 1995 F Date Time Provider Department 08/08/22 11:30 AM TESSA SANCHEZ During your visit today, we recorded the following information about you: Tessa Sanchez MD 2022 12:58 PM Signed New Patient Referring Physician: Charbel Cosby Edith Wells is a 27 year old female referred by Charbel Cosby for her right foot pain. She states that she has been having this pain since April. She states that she does not recall any injury to her foot. She came in today wearing a boot. She states that she believe that her family kick ball game was the cause of her pain. She states that her pain level is 6/10 she states the pain feeling throbbing and achy. She is taking over the counter medication for the pain and does feel like it is helping her at times. Consultation requested by Dr. Charbel Cosby for an opinion regarding her right foot pain . My final recommendations will be communicated back to the requesting physician by way of shared medical record or letter via US mail . Do you have a metal allergy?: No Current Outpatient Medications Medication Sig Dispense Refill betaxolol (KERLONE) 10 mg tablet Take 0.5 tablets by mouth once daily. 30 tablet 3 omeprazole (PRILOSEC) 20 mg capsule Take 20 mg by mouth once daily. sertraline (ZOLOFT) 50 mg tablet Take 50 mg by mouth once daily. ALPRAZolam (XANAX) 0.5 mg tablet Take 0.5 mg by mouth as needed. No current facility-administered medications for this visit. 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 Yes PAIN SCALE: 6 on a scale of 0-10 Pain Onset:sudden Does the pain radiate? No Associated Factors: swelling Precipitating Factors: Standing, Walking, and As day progresses Relieving Factors: medications - NSAIDs Progression: Constant Previous Treatment as follows: none ROS: Have you had any problems or treatment of the following? If yes please describe. Head:No Eyes:No Ears, nose or throat: No Lungs: No Heart or blood pressure: No Stomach or Bowels: yes Kidney or Bladder: No Female organs: No Nerve or mental illness: Yes: depression DM: No Peripheral Vascular Disease: No Inflammatory Arthritis: No Other: none Bleeding Disorders: No FAMILY HISTORY: Has any member of your immediate family (parents or siblings) had this same problem? If so , who? and what? No SOCIAL HISTORY Marital Status: single (never ) Tobacco: Ex-smoker, quit 3 years ago Alcohol: No alcohol consumption WORKERS' COMPENSATION CLAIM Have you missed work for this problem? No If yes, what dates have you missed? Pending Litigation? No What tests have been done for this problem? X-Rays and MRI Scan The patient's pertinent medical history from [facility] has been reviewed. PFOMIS forms have been reviewed. The patient's history of present illness has been confirmed. PHYSICAL EXAM: right foot Physical examination reveals an alert and oriented patient who is in no acute distress while sitting and is of normal mood and affect. There were no vitals taken for this visit. Gait Cycle: Normal Yes, Limp: none. Inspection: Alignment: Pes planus Symmetry: Swelling: yes. Redness: no. Ecchymosis: no Effusion: 0 Palpation: Warmth: no, Tenderness:Yes: Ankle: Medial ankle joint ROM: Ankle- Normal. Strength: 5 Stability: Ligamentous instability: no Specialized Tests: negative Neurologic Status: normal. Vascular Status: normal Skin: Normal Right Upper Extremities:No gross abnormalities Left Upper Extremities:No gross abnormalities Xrays: Medial talus OCD Dx: (M36.571) Osteochondritis dissecans of right talus (primary encounter diagnosis) Plan: Discussed all options of treatment for her diagnosis including arthroscopy and observation. She would like to proceed with right ankle arthroscopy. I have discussed surgical and non-surgical methods of treatment with the patient. The natural history and course were discussed in relation to the options. Surgical risks, benefits, algorythm, post-operative course, and all possible outcomes were discussed in great detail. The patient will decide how they want to proceed. Procedure: Right ankle arthroscopy with OCD excision and microfracture The risks, benefits and anticipated outc (more content not included)... Normal [facility] XR LSPINE 2_3 VIEWSon 2021 XR LSPINE 2_3 VIEWS EXAM: XR LSPINE 2_3 VIEWS HISTORY: Back pain COMPARISON: None. TECHNIQUE: 3 views FINDINGS: IMPRESSION: Pelvic side bending to the right that may be positionally related. Maintenance of the normal lumbar lordosis.. Vertebral body heights and alignments exhibit no fracture or listhesis. Intervertebral disc space heights are unremarkable Electronically authenticated by: CHARBEL TAPIA Date: 2022-08-01 20:44 Normal [facility] XR ankle RT min 3V*on 2021 XR ankle RT min 3V* [facility] [place] [address] [place] [address] XRay Report Signed Patient: Edith Wells MR#: [id number] : 1995 Acct:[id number] Age/Sex: 26 / F ADM Date: 07/07/22 Loc: ER Room: [facility] Attending Dr: Copies to: Constantine Yee PA-C Ordering Provider: Constantine Yee PA-C Date of Service: 07/07/22 XR/XR ankle RT min 3V*: Extremity Injury, Lower XR ankle RT min 3V* 07/07/2022 8:22 PM SIGNS AND SYMPTOMS: Medial right ankle pain, history of right ankle fracture PROTOCOL: Frontal, lateral, and oblique radial graphs of the right ankle COMPARISON: None FINDINGS: There is lucency along the medial corner of the talar dome suspicious for osteochondritis dissecans. No evidence of acute displaced fracture. There is diffuse soft tissue swelling. XR/XR ankle RT min 3V* IMPRESSION: There is lucency along the medial corner of the talar dome suspicious for osteochondritis dissecans. There is diffuse soft tissue swelling. Impression dictated by: Keaton Brooks M.D.07/08/2022 9:41 AM Dictation Location: [place] [address] Transcribed By: [facility] 07/08/22940 Dictated By: Keaton Brooks II, MD 07/08/22938 Signed By: 07/08/22940 [facility] Covid-19 PCR (CVDTBH)on SARS-CoV-2 (COVID-19) RNA HAROLDO+probe Ql (Unsp spec) Not detected Normal NOT DETECTED [facility] Comment on above: Result Comment: When diagnostic testing is negative, the possibility of a false negative should be considered in the context of a patient's recent exposures and the presence of clinical signs and symptoms consistent with SARS-CoV-2. This test is not yet approved or cleared by the [place] FDA. When there are no FDA-approved or cleared tests available, and other criteria are met, FDA can make tests available under an emergency access mechanism called an Emergency Use Authorization (EUA). The EUA for this test is supported by the Contact Center Analyst of Health and Human Service's declaration that circumstances exist to justify the emergency use of in vitro diagnostics for the detection and/or diagnosis of the virus that causes COVID-19. This EUA will remain in effect for the duration of the COVID-19 declaration justifying emergency of IVDs, unless it is terminated or revoked by the FDA (after which the test may no longer be used). Performed By: #### L IPA, CMP, SYEDA, PREGQNT #### [facility] [address] [place], [place] [address] Dr. Judah Phipps GROUP A STREP CULTUREon S. pyogenes Ag Ql (Unsp spec) Culture Observations: NEGATIVE FOR GROUP A STREPTOCOCCUS. Normal [facility] Comment on above: Performed By: #### G RASTCX, SSCRN #### [facility] [address] [place], [place] [address] Dr. Judah Phipps STREPT SCREENon 06-28-2022 STREP SCREEN A Negative Normal NEGATIVE [facility] Comment on above: Performed By: #### G RASTCX, SSCRN #### [facility] [address] [place] [address] [address] Judah Phipps XR Ankle Complete Righton XR Ankle Complete Right CLINICAL HISTORY: Right leg sciatica for 5 days. No injury. Generalized right ankle pain for 5 days without injury. COMPARISON: None. TECHNIQUE: 3 Views were obtained. FINDINGS: There is a Salter II type fracture to the distal fibula, best demonstrated on the lateral view with buckling of the anterior fibular cortex. Ankle mortise is maintained. On the AP view there is a faint lucency through the mid distal tibial metaphysis, suspicious for fracture. IMPRESSION: SALTER II FRACTURE OF DISTAL FIBULA. SUSPECT NONDISPLACED FRACTURE OF THE MID DISTAL TIBIAL METAPHYSIS. Report reported and signed by Kristi Olguin on 05/07/2022 1503 Normal [facility] [employer] XR Spine Lumbar 4+ Views*on 05-07-2022 XR Spine Lumbar 4+ Views* CLINICAL HISTORY: Right leg sciatica for 5 days. No history of injury. Right ankle pain for 5 days. COMPARISON: None. TECHNIQUE: 6 Views were obtained. FINDINGS: No signs of fracture, malalignment or osseous destruction. There is narrowing of the L4-5 and L5-S1 disc levels. SI joints are symmetrical. There is an IUD within the pelvis. IMPRESSION: NO FRACTURE OR MALALIGNMENT. NARROWED L4-5 AND L5-S1 DISC LEVELS. Report reported and signed by Kristi Olguin on 05/07/2022 1453 Normal [facility] Vital Signs Date Time Vital Sign Value Performing Clinician Facility 05-08-2023 09:30-0400 Body height 163.19 cm Charbel Rodriguez Other [employer] Other 05-08-2023 09:30-0400 Body mass index (BMI) [Ratio] 46.15 kg/m2 Charbel Rodriguez Other [employer] Other 05-08-2023 09:30-0400 Body temperature 98.3 [degF] Charbel Rodriguez Other [employer] Other 05-08-2023 09:30-0400 Body weight 122.93 kg Charbel Rodriguez Other [employer] Other 05-08-2023 09:30-0400 Diastolic blood pressure 84 mm[Hg] Charbel Rodriguez Other [employer] Other 05-08-2023 09:30-0400 Respiratory rate 18 /min Charbel Rodriguez Other [employer] Other 05-08-2023 09:30-0400 SaO2% (BldA) [Mass fraction] 98 % Charbel Rodriguez Other [employer] Other 05-08-2023 09:30-0400 Systolic blood pressure 130 mm[Hg] Charbel Rodriguez Other [employer] Other 04-12-2023 10:50-0400 Body height 163.19 cm Charbel Rodriguez Other [employer] Other 04-12-2023 10:50-0400 Body mass index (BMI) [Ratio] 45.47 kg/m2 Charbel Rodriguez Other [facility] Other 04-12-2023 10:50-0400 Body temperature 98.8 [degF] Charbel Rodriguez Other [employer] Other 04-12-2023 10:50-0400 Body weight 121.11 kg Charbel Rodriguez Other [employer] Other 04-12-2023 10:50-0400 Diastolic blood pressure 84 mm[Hg] Charbel Rodriguez Other [employer] Other 04-12-2023 10:50-0400 Respiratory rate 20 /min Charbel Rodriguez Other [employer] Other 04-12-2023 10:50-0400 SaO2% (BldA) [Mass fraction] 98 % Charbel Rodriguez Other [employer] Other 04-12-2023 10:50-0400 Systolic blood pressure 138 mm[Hg] Charbel Rodriguez Other [employer] Other 12-07-2022 11:20-0500 Body height 163.19 cm Ronda Guevara Other [employer] Other 12-07-2022 11:20-0500 Body mass index (BMI) [Ratio] 42.57 kg/m2 Ronda Guevara Other [facility] Other 12-07-2022 11:20-0500 Body temperature 97.2 [degF] Ronda Guevara Other [employer] Other 12-07-2022 11:20-0500 Body weight 113.4 kg Ronda Guevara Other [employer] Other 12-07-2022 11:20-0500 SaO2% (BldA) [Mass fraction] 98 % Ronda Guevara Other [employer] Other 08-14-2022 11:13-0400 Body height 165.1 cm [facility] 08-14-2022 11:13-0400 Body weight 120.66 kg [facility] 08-14-2022 11:13-0400 Heart rate 60 /min [facility] 08-13-2022 15:40-0400 Body height 163.19 cm Charbel Rodriguez Other [employer] Other 08-13-2022 15:40-0400 Body mass index (BMI) [Ratio] 45.64 kg/m2 Charbel Michael Other [employer] Other 08-13-2022 15:40-0400 Body temperature 97.7 [degF] Charbel Jenkinsrosey Other [employer] Other 08-13-2022 15:40-0400 Body weight 121.56 kg Charbel Rodriguez Other [employer] Other 08-13-2022 15:40-0400 Diastolic blood pressure 82 mm[Hg] Charbel Rodriguez Other [employer] Other 08-13-2022 15:40-0400 Respiratory rate 18 /min Charbel Rodriguez Other [employer] Other 08-13-2022 15:40-0400 SaO2% (BldA) [Mass fraction] 98 % Charbel Michael Other [employer] Other 08-13-2022 15:40-0400 Systolic blood pressure 132 mm[Hg] Charbel Rodriguez Other [employer] Other 07-07-2022 18:14-0400 Body temperature 98.4 [degF] DO Charbel Rodriguez Work Phone: [facility] 07-07-2022 18:14-0400 Diastolic blood pressure 80 mm[Hg] DO Charbel Michael Work Phone: [facility] 07-07-2022 18:14-0400 Heart rate 65 /min DO Charbel Michael Work Phone: [facility] 07-07-2022 18:14-0400 Respiratory rate 20 /min DO Charbel Rodriguez Work Phone: [facility] 07-07-2022 18:14-0400 SaO2% (BldA) [Mass fraction] 99 % DO Charbel Rodriguez Work Phone: [facility] 07-07-2022 18:14-0400 Systolic blood pressure 147 mm[Hg] DO Charbel Rodriguez Work Phone: [facility] 07-07-2022 18:05-0400 Body height 165.1 cm DO Charbel Rodriguez Work Phone: [facility] 07-07-2022 18:05-0400 Body weight 113.39 kg DO Charbel Rodriguez Work Phone: [facility] Encounters Encounter Date Encounter Type Care Provider Facility Start: 03-04-2024 End: 03-04-2024 ambulatory SONIA A VISCI Not Available Start: 02-10-2024 End: 02-10-2024 ambulatory SONIA A VISCI Not Available Start: 01-27-2024 End: 01-27-2024 ambulatory SONIA A VISCI Not Available Start: 01-11-2024 End: 01-11-2024 ambulatory JOHNSON A KIEPERT Not Available Start: 12-30-2023 End: 12-30-2023 ambulatory SONIA A VISCI Not Available Start: 12-16-2023 End: 12-16-2023 ambulatory SONIA A VISCI Not Available Start: 11-11-2023 End: 11-11-2023 ambulatory SONIA A VISCI Not Available Start: 10-14-2023 End: 10-14-2023 ambulatory SONIA VISCI Not Available Start: 10-14-2023 End: 10-14-2023 ambulatory SONIA A VISCI Not Available Start: 09-27-2023 End: 09-27-2023 ambulatory SONIA VISCI Not Available Start: 09-13-2023 End: 09-13-2023 ambulatory Charbel Rodriguez Other [employer] Other Start: 09-13-2023 Telephone encounter Charbel Rodriguez [facility] Start: 09-10-2023 End: 09-10-2023 ambulatory SONIA A VISCI Not Available Start: 06-24-2023 End: 06-24-2023 ambulatory Charbel Rodriguez Other [employer] Other Start: 06-24-2023 Telephone encounter Charbel Rodriguez [facility] [place] Start: 06-03-2023 End: 06-03-2023 ambulatory Charbel Rodriguez Other [employer] Other Start: 06-03-2023 Telephone encounter Charbel Rodriguez [facility] [place] Start: 05-27-2023 End: 05-27-2023 ambulatory Charbel Rodriguez Other [employer] Other Start: 05-27-2023 Telephone encounter Charbel Rodriguez [facility] [place] Start: 05-08-2023 End: 05-08-2023 ambulatory Charbel Rodriguez Other [employer] Other Start: 05-08-2023 Office outpatient vi sit 15 minutes Charbel Rodriguez [facility] [place] Start: 04-26-2023 End: 04-26-2023 ambulatory Charbel Rodriguez Other [employer] Other Start: 04-26-2023 Telephone encounter Charbel Rodriguez [facility] [place] Start: 04-19-2023 End: 04-19-2023 ambulatory Charbel Rodriguez Other [employer] Other Start: 04-19-2023 Telephone encounter Charbel Rodriguez [facility] [place] Start: 04-17-2023 End: 04-17-2023 ambulatory CHARBEL RODRIGUEZ Facility:[facility] Start: 04-17-2023 End: 04-17-2023 Patient encounter procedure Tessa Sanchez MD Work Phone: Orthopaedics Comment on above: 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) Start: 04-12-2023 End: 04-12-2023 ambulatory Charbel Rodriguez Other [employer] Other Start: 04-12-2023 Office outpatient vi sit 15 minutes Charbel Rodriguez [facility] [place] Start: 03-13-2023 End: 03-13-2023 ambulatory CHARBEL RODRIGUEZ Facility:[facility] Start: 02-28-2023 Telephone encounter Tessa bates MD Work Phone: Orthopaedics Comment on above: Electronic Communica tion (PT order faxed today) Start: 01-10-2023 Telephone encounter Tessa bates MD Work Phone: Orthopaedics Comment on above: Return To Work Lette r Start: 01-02-2023 End: 01-02-2023 ambulatory CHARBEL RODRIGUEZ Facility:[facility] Start: 01-02-2023 End: 01-02-2023 Subsequent hospital visit by physician [facility] Re[facility] Work Phone: Radiology Comment on above: Osteochondritis diss ecans of right talus [M93.271] Start: 01-02-2023 End: 01-02-2023 Patient encounter procedure Tessa Sanchez MD Work Phone: Orthopaedics Comment on above: 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) Start: 12-21-2022 Telephone encounter Tessa bates MD Work Phone: Orthopaedics Comment on above: Patient Update (Requ ested a letter) Start: 12-19-2022 Telephone encounter Tessa bates MD Work Phone: Orthopaedics Comment on above: Patient Update Start: 12-07-2022 End: 12-07-2022 ambulatory Ronda Guevara Other [employer] Other Start: 12-07-2022 Office outpatient vi sit 25 minutes Ronda Guevara [facility] Start: 12-07-2022 Telephone encounter Charbel Rodriguez [facility] Start: 11-19-2022 End: 11-19-2022 ambulatory Charbel Rodriguez Other [employer] Other Start: 11-19-2022 Telephone encounter Charbel Rodriguez [facility] [place] Start: 11-14-2022 End: 11-14-2022 Patient encounter procedure Tessa Sanchez MD Work Phone: Orthopaedics Comment on above: 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) Start: 11-14-2022 End: 11-14-2022 Subsequent hospital visit by physician Mike Morin [facility] [place] Work Phone: Radiology Comment on above: Osteochondritis diss ecans of right talus [M93.271] Start: 11-14-2022 End: 11-14-2022 ambulatory CHARBEL RODRIGUEZ [employer] Other Start: 11-14-2022 Telephone encounter Charbel Rodriguez [facility] Start: 11-13-2022 End: 11-14-[address] CHARBEL RODRIGUEZ Facility: Start: 11-12-2022 End: 11-12-2022 ambulatory Charbel Rodriguez Other [employer] Other Start: 11-12-2022 Telephone encounter Charbel Rodriguez [facility] Start: 10-31-2022 Orders Only Tessa Vasquez Work Phone: Orthopaedics Comment on above: 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) Start: 10-10-2022 End: 10-10-2022 ambulatory CHARBEL RODRIGUEZ Facility:[facility] Start: 10-10-2022 End: 10-10-2022 Patient encounter procedure Tessa Sanchez MD Work Phone: Orthopaedics Comment on above: 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) Start: 09-26-2022 Telephone encounter Tessa bates MD Work Phone: Orthopaedics Comment on above: Patient Question Start: 09-12-2022 End: 09-12-2022 ambulatory CHARBEL RODRIGUEZ Facility:[facility] Start: 09-12-2022 End: 09-12-2022 Patient encounter procedure [employer] Agnes Work Phone: Orthopaedics Comment on above: 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) Start: 09-05-2022 End: 09-05-2022 ambulatory Charbel Rodriguez Other [employer] Other Start: 09-05-2022 Telephone encounter Charbel Rodriguez [facility] Start: 09-03-2022 End: 09-03-2022 ambulatory Charbel Alicerosey Other [employer] Other Start: 09-03-2022 Telephone encounter Charbel Rodriguez [facility] Comment on above: post op right ankle swelling and pain Start: 09-02-2022 Telephone encounter Eyad marroquin MD Work Phone: Surgical Intensive Care Unit Comment on above: Patient Question Start: 08-29-2022 End: 08-29-2022 Patient encounter procedure [employer] [place] Work Phone: Orthopaedics Comment on above: 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) Start: 08-29-2022 End: 08-29-2022 ambulatory CHARBEL RODRIGUEZ [employer] [facility] [email or web address] Other Start: 08-29-2022 Telephone encounter Charbel Rodriguez [facility] Start: 08-28-2022 End: 08-28-2022 ambulatory TESSA SANCHEZ Facility:[facility] Start: 08-27-2022 Refill Tessa Vasquez Work Phone: Orthopaedics Comment on above: Refill Request Start: 08-24-2022 End: 08-24-2022 ambulatory CHARBEL RODRIGUEZ Facility:[facility] Start: 08-16-2022 End: 08-16-2022 ambulatory Charbel Rodriguez Other [employer] Other Start: 08-16-2022 Telephone encounter Charbel Rodriguez [facility] Start: 08-15-2022 Telephone encounter Tessa bates MD Work Phone: Pre Anesthesia Comment on above: Results; Preparation s For Surgery Start: 08-15-2022 End: 08-15-2022 ambulatory CHARBEL RODRIGUEZ Facility:[facility] Start: 08-14-2022 Encounter for other preprocedural examination CHARBEL RODRIGUEZ [facility] Start: 08-14-2022 End: 08-14-2022 Admission to establishment [facility] Start: 08-14-2022 End: 08-14-2022 ambulatory TESSA SANCHEZ Pre Anesthesia Comment on above: Preop examination (P rimary Dx); Anemia, unspecified type; Difficult intravenous access; Acute bilateral low back pain without sciatica; History of syncope; History of palpitations; Former smoker; BMI 40.0-44.9, adult (HCC) Start: 08-14-2022 End: 08-14-2022 Preprocedural examination done [facility] Pre Anesthesia Start: 08-13-2022 End: 08-13-2022 ambulatory Charbel Rodriguez Other [employer] Other Start: 08-13-2022 Office outpatient vi sit 15 minutes Charbel Rodriguez [facility] Start: 08-13-2022 Telephone encounter Charbel Rodriguez [facility] Start: 2022 End: 2022 ambulatory CHARBEL RODRIGUEZ Facility:[facility] Start: 2022 End: 2022 Patient encounter procedure Tessa Sanchez MD Work Phone: Orthopaedics Comment on above: 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) Start: 08-01-2022 End: 08-01-[address] CHARBEL RODRIGUEZ Facility:[facility] Start: 07-09-2022 End: 07-09-2022 ambulatory Charbel Rodriguez Other [employer] Other Start: 07-09-2022 Telephone encounter Charbel Rodriguez [facility] Start: 07-07-2022 End: 07-07-2022 Emergency department patient visit Charbel Rodriguez Facility:[facility] Start: 07-07-2022 End: 07-07-2022 Emergency department patient visit DO Charbel Rodriguez Work Phone: [facility] Start: 06-28-2022 End: 06-28-[address] CHARBEL RODRIGUEZ Facility:[facility] Start: 05-23-2022 End: 05-23-2022 ambulatory Charbel Rodriguez Other [facility] [email or web address] Other Start: 05-23-2022 Telephone encounter Charbel Rodriguez [facility] [place] Start: 01-06-[address] CHARBEL RODRIGUEZ Facilit y:[facility] Procedures Date Procedure Procedure Detail Performing Clinician Start: 01-02-2023 Radex ankle complete minimum 3 views Tessa Sanchez MD Work Phone: Start: 11-14-2022 Radex ankle complete minimum 3 views Tessa Sanchez MD Work Phone: H/O: section Status post C-secti on DO Charbel Rodriguez Work Phone: Plan of Treatment Date Care Activity Detail Author Start: 11-29-2031 Urine microalbumin profile DTaP,Tdap,Td Vaccine (7 - Td or Tdap) [facility] Start: 06-28-2023 Influenza vaccination [facility] Start: 08-14-2022 End: 10-14-2022 Basic metabolic 2000 panel - Serum or Plasma BASIC METABOLIC PNL Lab Routine History of syncope Expected: 08/14/2022, Expires: 10/14/2022 [facility] Work Phone: Comment on above: Expected: 08/14/2022 , Expires: 10/14/2022 Start: 08-14-2022 End: 10-14-2022 CBC panel - Blood by Automated count CBC Lab Routine Preop examination Anemia, unspecified type Expected: 08/14/2022, Expires: 10/14/2022 [facility] Work Phone: Comment on above: Expected: 08/14/2022 , Expires: 10/14/2022 Start: 07-07-2022 X-ray of right ankle XR ankle RT min 3V* [facility] Start: 07-07-2022 XR Ankle - right GE 3 Views [facility] Work Phone: Start: 06-28-2022 Influenza vaccination INFLUENZA (#1) [facility] Start: 10-28-2021 DEPRESSION ASSESSMENT DEPRESSION ASS ESSMENT [facility] Start: 2015 PAP TESTING PAP TESTING [facility] Start: 2013 Urine microalbumin profile DTAP,TDAP,TD (1 - Tdap) [facility] Start: 2012 HEPATITIS C SCREENING HEPATITIS C [place] [facility] Start: 2012 HIV SCREENING HIV SCREENING [facility] Start: 2000 PNEUMOCOCCAL (1 - PCV) PNEUMOCOCCAL (1 - PCV) [facility] Start: 02-06-1995 COVID-19 VACCINE (#1) COVID-19 VACCI NE (#1) [facility] Start: 1994 HEPATITIS B (1 of 3 - 3-dose series) HEPATITIS B (1 of 3 - 3-dose series) [facility] Patient Education Ankle Sprain ED [facility] Work Phone: Patient referral [facility] Work Phone: End: 11-30-2023 XR ANKLE GENERAL 3V AP/LAT/OBL RIGHT XR ANKLE GENERAL 3V AP/LAT/OBL RIGHT Radiology Routine Osteochondritis dissecans of right talus 1 Occurrences starting 11/02/2022 until 11/30/2023 [facility] Work Phone: Comment on above: 1 Occurrences starti ng 11/02/2022 until 11/30/2023 [facility] Immunizations Immunization Date Immunization Notes Care Provider Fa snow 11-29-2021 tetanus toxoid, reduced diphtheria toxoid, and acellular pertussis vaccine, adsorbed DO Charbel Rodriguez Work Phone: [facility] NEGATED: Highlighted row has not occurred!08-07-2019 influenza, seasonal, injectable Patient Objection Charbel Rodriguez Other [employer] Other Payers Date Payer Category Payer Medicaid [id number] 2. [id number] 2022 Self-pay [id number] 2021 Medicaid [id number] 5 2018 Unknown [id number] 5 1994 Unknown [id number] 2.16.84 0.1.671520.3.579.2.593 1994 Unknown [id number] 2.16.84 0.1.983327.3.579.2.593 1994 Unknown [id number] 2.16.84 0.1.284748.3.579.2.593 1994 Unknown [id number] 2.16.84 0.1.396012.3.579.2.593 1994 Unknown [id number] 2.16.84 0.1.609348.3.579.2.1259 1994 Unknown [id number] 2.16.84 0.1.360730.3.579.2.1259 1994 Unknown [id number] 2.16.84 0.1.437580.3.579.2.1259 1994 Unknown [id number] 2.16.84 0.1.669242.3.579.2.1259 1994 Unknown [id number] 2.16.84 0.1.204372.3.579.2.1259 1994 Unknown [id number] 2.16.84 0.1.019729.3.579.2.1259 1994 Unknown [id number] 2.16.84 0.1.283076.3.579.2.1259 1994 Unknown [id number] 2.16.84 0.1.399419.3.579.2.1259 1994 Unknown [id number] 2.16.84 0.1.283236.3.579.2.1259 1994 Unknown [id number] 2.16.840 .1.275128.3.579.2.1259 1994 Unknown [id number] 2.16.840 .1.786512.3.579.2.1259 1994 Unknown [id number] 2.16.840 .1.078181.3.579.2.1259 1994 Unknown [id number] 2.16.840. 1.417717.3.579.2.1259 1959 Medicaid [id number] 1959 Unknown [id number] Medicaid [place] [employer] [id number] 101 [id number] Unknown [id number] 2.16.8 [id number] Social History Date Type Detail Facility Start: 07-07-2022 End: 08-14-2022 Tobacco smoking status ALIS Ex-smoker (finding) [facility] Start: 1995 Sex Assigned At Female F [facility] Start: 10-03-2018 Tobacco smoking stat us ALIS Occasional tobacco smoker [facility] Start: 10-03-2018 End: 08-14-2022 Tobacco use and exposure Smokeless tobacco non-user [facility] Start: 01-01-2019 End: 08-14-2022 Alcohol intake Current non-drinker of alcohol (finding) [facility] Start: 1994 Sex Assigned At Not on file C [facility] Start: 08-14-2022 End: 11-10-2022 Sex Assigned At [employer] Other End: 10-28-2019 History of tobacco use Current smoker [facility] Work Phone: End: 10-28-2019 History of tobacco use Cigarette Smoker [facility] Work Phone: Start: 08-14-2022 End: 11-10-2022 Cigarettes smoked current (pack per day) - Reported 0.3 [facility] Start: 08-04-2022 End: 08-28-2022 Exposure to SARS-CoV-2 (event) Not sure [facility] Work Phone: National Score (1-100), lower number is lower risk 86 [facility] Clinical Notes 05-23-2022 to 06-03-2023 Note Date & Type Note Facility 06-03-2023 Evaluation note Encounter Date Diagnosis Assessment Notes May, Depression (ICD-10 - F32.9) [employer] Other 07-12-2023 Evaluation note* Encounter Date Diagnosis Assessment Notes Treatment Notes Treatment Clinical Notes Apr, Chest pain (ICD-10 - R07.9) She went to the ER for evaluation of chest pain on 04-26-23, she voices that she was told she had PVC's which she has had before. She did stop the Adipex which appeared to cause the chest pain and her elevated blood pressure. She is not taking Losartan. Apr, Weight gain (ICD-10 - R63.5) She is not able to take Adipex anymore because it caused chest pain and elevated blood pressure. She would like to discuss alternative weight loss medication. I did explain to her that other medications are expensive and it is unlikely that her insurance will cover it. She previously lost weight by eating meat and vegetables. I did recommend that she return to doing this. She is to cut out her intake of carbs and sugars. Stay active. Apr, Depression (ICD-10 - F32.9) She was going to re-start Zoloft because she is not on the Adipex. We discussed placing her on Wellbutrin which would help her with weight loss but also help her focus and help with her anxiety/depression symptoms. She feels she needs more energy and Wellbutrin would help with this. She is willing to try the Wellbutrin. She has never had a seizure. Will start her on a low dose and in one month she is to call with progress and at that time we will determine if her dose should be increased or not. [employer] Other 06-30-2023 Evaluation note* Encounter Date Diagnosis Assessment Notes Treatment Notes Treatment Clinical Notes Mar, Weight gain (ICD-10 - R63.5) [employer] Other 06-21-2023 NoteHNO ID: [id number] Author: Tessa Sanchez MD Service: ? Author Type: Physician Type: Progress Notes Filed: 04/18/2023 9:27 PM Note Text: Edith Wells returns today to follow up Osteochondritis dissecans of right talus. She states that she is having pain today in her ankle. She states that on fathers day she did injury her left ankle. She states that she does aching and soreness and sometimes she does feel sharp. She states that she has been trying to wear a regular shoe and she can not get her foot in them with out causing pain. Surgery: right ankle arthroscopy, excision OCD medial talus, microfracture of talus, synovectomy, surgeon monitored fluoroscopy on 08/28/22 Do you have a metal allergy?: No Current Dx: Osteochondritis dissecans of right talus Injury:No Pt. Feels their overall condition is the same. Is the patient having any pain? Yes PAIN SCALE: 7 on a scale of 0-10 Current treatment plan includes: Weight Bearing Status: full Weight bearing status:Full Ambulatory Aids:N/A Physical Therapy:Yes Home Exercise Program: Yes NSAIDS: Ibuprofen : Taking as directed and feels it is helping. Pain medication: None Activity Levels: Normal PHYSICAL EXAM: right ankle Physical examination reveals an alert and oriented patient who is in no acute distress while sitting and is of normal mood and affect. LMP 07/02/2022 Gait Cycle: Normal Yes, Limp: none. Inspection: Alignment: neutral Symmetry: Swelling: no. Redness: no. Ecchymosis: no Effusion: 0 Palpation: Warmth: no, Tenderness:No ROM: Ankle- Normal Foot- Normal. Strength: 5 Stability: Ligamentous instability: no Specialized Tests: negative Neurologic Status: normal. 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 At the conclusion of the visit the patient voiced understanding and agreement with the plan. The patient knows to call us or present to the nearest Emergency Department if the patients pain increases. Patient knows how to reach us if there are any questions or problems. This visit required reviewed the patient's medical records, updating historical information, assessing changes in physical examination, and review of all testing information. It required patient-provider interaction for the medical decision making as documented. The time and /or expertise required in this decision-making process, communicating the results as such with the patient and developing the treatment protocol is reflected in the charge capture section of these electronic medical records. This note was partially generated using [employer] voice recognition system, and there may be some incorrect words, spellings, and punctuation that were not noted in checking the note before saving. Tessa Sanchez M.D.[facility]06-21-2023 History of Present illness Narrative* Tessa Sanchez MD - 04/17/2023 10:25 AM EDT Edith Wells returns today to follow up Osteochondritis dissecans of right talus. She states that she is having pain today in her ankle. She states that on fathers day she did injury her left ankle. She states that she does aching and soreness and sometimes she does feel sharp. She states that she has been trying to wear a regular shoe and she can not get her foot in them with out causing pain. Surgery: right ankle arthroscopy, excision OCD medial talus, microfracture of talus, synovectomy, surgeon monitored fluoroscopy on 08/28/22 Do you have a metal allergy?: No Current Dx: Osteochondritis dissecans of right talus Injury:No Pt. Feels their overall condition is the same. Is the patient having any pain? Yes PAIN SCALE: 7 on a scale of 0-10 Current treatment plan includes: Weight Bearing Status: full Weight bearing status:Full Ambulatory Aids:N/A Physical Therapy:Yes Home Exercise Program: Yes NSAIDS: Ibuprofen : Taking as directed and feels it is helping. Pain medication: None Activity Levels: Normal PHYSICAL EXAM: right ankle Physical examination reveals an alert and oriented patient who is in no acute distress while sitting and is of normal mood and affect. [facility] 07/02/2022 Gait Cycle: Normal Yes, Limp: none. Inspection: Alignment: neutral Symmetry: Swelling: no. Redness: no. Ecchymosis: no Effusion: 0 Palpation: Warmth: no, Tenderness:No ROM: Ankle- Normal Foot- Normal. Strength: 5 Stability: Ligamentous instability: no Specialized Tests: negative Neurologic Status: normal. 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 At the conclusion of the visit the patient voiced understanding and agreement with the plan. The patient knows to call us or present to the nearest Emergency Department if the patients pain increases. Patient knows how to reach us if there are any questions or problems. This visit required reviewed the patient's medical records, updating historical information, assessing changes in physical examination, and review of all testing information. It required patient-provider interaction for the medical decision making as documented. The time and /or expertise required in this decision-making process, communicating the results as such with the patient and developing the treatment protocol is reflected in the charge capture section of these electronic medical records. This note was partially generated using [employer] voice recognition system, and there may be some incorrect words, spellings, and punctuation that were not noted in checking the note before saving. Tessa Sanchez M.D. documented in this encounter[facility]06-[facility] Evaluation note* Encounter Date Diagnosis Assessment Notes Treatment Notes Treatment Clinical Notes Mar, Depression (ICD-10 - F32.9) She does continue with above medication daily as directed. Mar, Fatigue (ICD-10 - R53.83) She voices that her energy is terrible. She feels sluggish, she can be up for 8 hours and then needs to take a nap. She is unsure if this is weight related. She does eventually want to have another baby and is currently using condoms for control. I would like to order a TSH to be sure there is nothing abnormal with her thyroid. Mar, Weight gain (ICD-10 - R63.5) Due to her ankle issues she had been unable to exercise. She is trying to get back into exercise by using her Elliptical. She is eating fewer carbs and mashed potatoes. She is trying to eat more home cooked meals. She would like to be on medication to help with weight loss. She was on Adipex in the past and did well with it. If she notices palpitations or has any issue with the Adipex then she would have to stop the medication right away. She is in agreement to this and will cautiously try the Adipex. She understands that she needs to make lifestyle and dietary changes that she can continue with to help keep the weight she has lost off. She has been doing research and wants to start juicing. I did recommend that she avoid getting on the Adipex. She will need to call with a blood pressure reading in 1 week and then return in 1 month. Side effects/risks/benef its of medication were reviewed. Mar, Other She had her IUD removed and is noticing hot flashes. I did advise her that it can take up to 3 months for her hormones to regulate after having the IUD removed. When she is ready to start trying to get she should begin taking vitamins. For now she can take a multivitamin daily ([employer] Complete) [employer] Other 05-17-2023 NoteHNO ID: [id number] Author: Tessa Sanchez MD Service: ? Author Type: Physician Type: Progress Notes Filed: 03/13/2023 8:03 PM Note Text: Edith Wells returns today to follow up from surgery on 08/28/22: right ankle arthroscopy, excision OCD medial talus, microfracture of talus, synovectomy, surgeon monitored fluoroscopy. She states that she does feel pain today 05/06 she states that its stabbing pain. She states that some times she feels throbbing pain. She is taking over the counter medication for the pain when needed. She states that she is doing better from her last visit. She states that she is no longer wearing the boot but now is wearing a post op shoe. She states that she is trying to walk on softer ground with out the post op shoe and has been doing okay with that. She is still doing PT x2 weeks. She is still noticing that she is having trouble with the stairs. Do you have a metal allergy?: No Current Dx: Osteochondritis dissecans of right talus Injury:No Pt. Feels their overall condition is better. Is the patient having any pain? Yes PAIN SCALE: 7 on a scale of 0-10 Current treatment plan includes: Weight Bearing Status: Weight bearing status:Full Ambulatory Aids: no Physical Therapy:Yes Home Exercise Program: Yes NSAIDS: Ibuprofen : Taking as directed and feels it is helping. Pain medication: None Activity Levels: ADL only PHYSICAL EXAM: right ankle Physical examination reveals an alert and oriented patient who is in no acute distress while sitting and is of normal mood and affect. LMP 07/02/2022 Gait Cycle: Normal Yes, Limp: none. Inspection: Alignment: neutral Symmetry: Swelling: Minimal . Redness: no. Ecchymosis: no Effusion: 0 Palpation: Warmth: no, Tenderness:Yes: Ankle: Anterior Joint Line ROM: Ankle- Normal. Strength: 5 Stability: Ligamentous instability: no Specialized Tests: negative Neurologic Status: normal. 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 Overall functional range of motion and strength are very good. She will continue with physical therapy and follow-up in 4 to 6 weeks. HPI explored in detail with patient and edited as necessary. At the conclusion of the visit the patient voiced understanding and agreement with the plan. The patient knows to call us or present to the nearest Emergency Department if the patients pain increases. Patient knows how to reach us if there are any questions or problems. This visit required reviewed the patient's medical records, updating historical information, assessing changes in physical examination, and review of all testing information. It required patient-provider interaction for the medical decision making as documented. The time and /or expertise required in this decision-making process, communicating the results as such with the patient and developing the treatment protocol is reflected in the charge capture section of these electronic medical records. This note was partially generated using [employer] voice recognition system, and there may be some incorrect words, spellings, and punctuation that were not noted in checking the note before saving. Tessa Sanchez M.D.[facility]05-05-2023 Miscellaneous Notes* Telephone Encounter - Lizzette Adams RN - 03/01/2023 10:21 AM EDT Faxed today at 10:20am. Lizzette Adams RN * Telephone Encounter - Margy Contreras Pss - 02/28/2023 4:08 PM EDT Patient wants to get physical therapy at [facility] in [place]. Has been approved by [facility] and she can now schedule. Asking for recent therapy order from Dr Sanchez be faxed to [facility] in [place] at [phone]. documented in this encounter[facility]03-17-2023 Miscellaneous Notes* Telephone Encounter - Lizzette Adams RN - 01/11/2023 12:04 PM EDT Patient's note faxed today as requested Lizzette Adams RN * Telephone Encounter - Autumn Clayton - 01/10/2023 12:05 PM EDT Edith Wells is calling Tessa Sanchez MD today with concern regarding Return To Work Letter and OV notes. Patient calling regarding request. Still unable to provide fax number for either work or disability. She is asking for [employer] to call her back. This agent unable to find [employer] in previous encounters. Please advise. Patient has been identified by name and birthdate. Duration of symptoms: N/A Person calling: self Call patient at: at home [phone] (home) [phone] (cell) Was an appointment scheduled: No Closing statement: Results or non-symptom based questions: Thank you for calling [facility], your call will be returned within the next business day. * Telephone Encounter - Ana Luisa Hernandez RN - 01/10/2023 11:30 AM EDT Patient calling. Asking that the return to work letter from the 01/02/23 OV be re-sent. She was unable to give me numbers, fax to where it needs to go, but states the office has sent other info to her employer and disability company? Advised to reach out to both if possible to find out what documentation is needed and where to sendit. She will call back to the office to update CALL [phone] documented in this encounterMer[facility]03-08-2023 NoteHNO ID: [id number] Author: RT Rubina(R) Service: Radiology Author Type: Technologist Type: Progress Notes Filed: 01/02/2023 4:13 PM Note Text: Radiology Service Progress Note PATIENT NAME: Edith Wells DATE OF SERVICE: January 02, 2023 TIME: 4:10 PM PATIENT IDENTITY VERIFICATION COMPLETED USING TWO (2) IDENTIFIERS: Name and Date of confirmed by patient verbally. FALL SCREENING: Has the patient had 2 falls in the last year or 1 fall with injury or currently using an Ambulatory Assistive Device (Walker, Cane, Wheelchair, Crutches, etc.)? No PATIENT GENDER DATA: Female. status: : No status: NO. PATIENT RELEVANT IMPLANT DATA REVIEWED: Not Applicable RADIOLOGY DEPARTMENT: General X-ray: Exam(s) Completed: Lower Extremity X-Ray(s): Ankle, Right and Wt. Bearing PERIPHERAL IV DATA: Not applicable SIGNED BY: Florence Cespedes RT(R) January 02, 2023 4:[address] [facility]03-08-2023 NoteHNO ID: [id number] Author: Tessa Sanchez MD Service: ? Author Type: Physician Type: Progress Notes Filed: 01/02/2023 10:32 PM Note Text: Edith Wells returns today to follow up on her Right Ankle. She reports intermittent pain today. She describes sharp, burning, shooting pain. She would like to discuss getting a PT referral. She also has concerns of nerve damage from the nerve block at the time of surgery due to numbness. She is fully weight -bearing currently using her walking boot, she stated the ankle brace gives her pain. POD 18 weeks Surgery: right ankle arthroscopy, excision OCD medial talus, microfracture of talus, synovectomy, surgeon monitored fluoroscopy on 08/28/22 Do you have a metal allergy?: No Current Dx: Osteochondritis dissecans of right talus Injury:No Pt. Feels their overall condition is the same. Is the patient having any pain? Yes PAIN SCALE: 7 on a scale of 0-10 PAIN CHARACTER: aching, sharp, and throbbing Current treatment plan includes: Weight Bearing Status: WB Weight bearing status:Full Ambulatory Aids:N/A Physical Therapy:No Home Exercise Program: No NSAIDS: Not taking Pain medication: None Activity Levels: Normal PHYSICAL EXAM: right ankle Physical examination reveals an alert and oriented patient who is in no acute distress while sitting and is of normal mood and affect. LMP 07/02/2022 Gait Cycle: Normal Yes, Limp: antalgic right, still uses walking boot Inspection: Alignment: neutral Symmetry: Swelling: no. Redness: no. Ecchymosis: no Effusion: 0 Palpation: Warmth: no, Tenderness:No ROM: continues to improve Strength: continues to improve Stability: Ligamentous instability: no Specialized Tests: negative Neurologic Status: normal. Vascular Status: normal Skin: Incision: well healed, clean, dry and intact and there is no erythema or drainage present. 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 She should transition from the boot to a stability type shoe with a Powerstep insert. Order placed for physical therapy to work on range of motion, strengthening, and proprioception, as well as a desensitization program. I fashioned her a pair of Powerstep inserts today in good car to offload the medial aspect of the ankle and support her pes planus to hopefully make the transition out of the boot more comfortable. She was very concerned about being able to stay off of work. An excuse was given for the next 6 weeks. HPI explored in detail with patient and edited as necessary. At the conclusion of the visit the patient voiced understanding and agreement with the plan. The patient knows to call us or present to the nearest Emergency Department if the patients pain increases. Patient knows how to reach us if there are any questions or problems. This visit required reviewed the patient's medical records, updating historical information, assessing changes in physical examination, and review of all testing information. It required patient-provider interaction for the medical decision making as documented. The time and /or expertise required in this decision-making process, communicating the results as such with the patient and developing the treatment protocol is reflected in the charge capture section of these electronic medical records. This note was partially generated using G[employer] voice recognition system, and there may be some incorrect words, spellings, and punctuation that were not noted in checking the note before saving. Scribe Attestation: By signing my name below, I, Pippa Moss, attest that this documentation has been prepared under the direction and in the presence of Tessa Sanchez MD. Electronically Signed: alan Alarcon, January 02, 2023 4:30 PM I agree with the Chief Complaint, ROS, and Past Histories independently gathered by the clinical personal support worker and the remaining scribed note accurately describes my personal service to the patient. Tessa Sanchez M.D.[facility]03-08-2023 History of Present illness Narrative* Blaise Glynn, RT(R) - 01/02/2023 4:15 PM EST Radiology Service Progress Note PATIENT NAME: Edith Wells DATE OF SERVICE: January 02, 2023 TIME: 4:10 PM PATIENT IDENTITY VERIFICATION COMPLETED USING TWO (2) IDENTIFIERS: Name and Date of confirmedby patient verbally. FALL SCREENING: Has the patient had 2 falls in the last year or 1 fall with injury or currently using an Ambulatory Assistive Device (Walker, Cane, Wheelchair, Crutches, etc.)? No PATIENT GENDER DATA: Female. status: : No status: NO. PATIENT RELEVANT IMPLANT DATA REVIEWED: Not Applicable RADIOLOGY DEPARTMENT: General X-ray: Exam(s) Completed: Lower Extremity X- Ray(s): Ankle, Right and Wt. Bearing PERIPHERAL IV DATA: Not applicable SIGNED BY: Florence Cespedes RT RT(R) January 02, 2023 4:10 PM documented in this encounterMer[facility]03-08-2023 History of Present illness Narrative* Tessa Sanchez MD - 01/02/2023 3:53 PM EST Edith Wells returns today to follow up on her Right Ankle. She reports intermittent pain today. She describes sharp, burning, shooting pain. She would like to discuss getting a PT referral. She also has concerns of nerve damage from the nerve block at the time of surgery due to numbness. She is fully weight -bearing currently using her walking boot, she stated the ankle brace gives herpain. POD 18 weeks Surgery: right ankle arthroscopy, excision OCD medial talus, microfracture of talus, synovectomy, surgeon monitored fluoroscopy on 08/28/22 Do you have a metal allergy?: No Current Dx: Osteochondritis dissecans of right talus Injury:No Pt. Feels their overall condition is the same. Is the patient having any pain? Yes PAIN SCALE: 7 on a scale of 0-10 PAIN CHARACTER: aching, sharp, and throbbing Current treatment plan includes: Weight Bearing Status: WB Weight bearing status:Full Ambulatory Aids:N/A Physical Therapy:No Home Exercise Program: No NSAIDS: Not taking Pain medication: None Activity Levels: Normal PHYSICAL EXAM: right ankle Physical examination reveals an alert and oriented patient who is in no acute distress while sitting and is of normal mood and affect. LMP 07/02/2022 Gait Cycle: Normal Yes, Limp: antalgic right, still uses walking boot Inspection: Alignment: neutral Symmetry: Swelling: no. Redness: no. Ecchymosis: no Effusion: 0 Palpation: Warmth: no, Tenderness:No ROM: continues to improve Strength: continues to improve Stability: Ligamentous instability: no Specialized Tests: negative Neurologic Status: normal. Vascular Status: normal Skin: Incision: well healed, clean, dry and intact and there is no erythema or drainage present. 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 She should transition from the boot to a stability type shoe with a Powerstep insert. Order placed for physical therapy to work on range of motion, strengthening, and proprioception, as well as a desensitization program. I fashioned her a pair of Powerstep inserts today in good car to offload the medial aspect of the ankle and support her pes planus to hopefully make the transition out of the boot more comfortable. She was very concerned about being able to stay off of work. An excuse was given for the next 6 weeks. HPI explored in detail with patient and edited as necessary. At the conclusion of the visit the patient voiced understanding and agreement with the plan. The patient knows to call us or present to the nearest Emergency Department if the patients pain increases. Patient knows how to reach us if there are any questions or problems. This visit required reviewed the patient's medical records, updating historical information, assessing changes in physical examination, and review of all testing information. It required patient-provider interaction for the medical decision making as documented. The time and /or expertise required in this decision-making process, communicating the results as such with the patient and developing the treatment protocol is reflected in the charge capture section of these electronic medical records. This note was partially generated using Güdpod voice recognition system, and there may be some incorrect words, spellings, and punctuation that were not noted in checking the note before saving. Scribe Attestation: By signing my name below, I, Pippa Moss, attest that this documentation has been prepared under the direction and in the presence of Tessa Sanchez MD. Electronically Signed: alan Alarcon, January 02, 2023 4:30 PM I agree with the Chief Complaint, ROS, and Past Histories independently gathered by the clinical personal support worker and the remaining scribed note accurately describes my personal service to the patient. Tessa Sanchez M.D. documented in this encounterMercy [facility] Hospital02-24-2023 Miscellaneous Notes* Telephone Encounter - Vinay Corona RN - 12/21/2022 5:34 PM EST This RN called and spoke with patient. Letter sent via [employer] she report she received it. 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 She was grateful for the call. Vinay Corona SIX PACK LOADER OPERATOR * Telephone Encounter - Ana Luisa Hernandez RN - 12/21/2022 3:03 PM EST Patient calling back. Has RTW date of 12/24/22. Asking if letter could be formatted to extend the date until the appointment on 01/02/23? Continues to have pain. Wearing the boot again, unable to wear the brace d/t pain. See below message, for illness details during Nov, that prevented her form having PT. CALL [phone] * Telephone Encounter - Autumn Clayton - 12/21/2022 2:59 PM EST Patient calling, very concerned this has not been addressed. Due to RTW on 12/24/22. Still in a lot of pain. Forwarded to NT to get symptom details. SHAYAN Hobbs Patient Operations Support Team (POST) Please note: Please do not re-route phone encounters back to this agent, please send to appropriateoffice pool. Agent works in call center and cannot complete patient specific tasks. * Telephone Encounter - Margy Contreras Pss - 12/19/2022 12:45 PM EST Patient calling. Wanted to add to below message. Disability is asking for more detailed notes from last visit and to see if leave can be extended until after seen by Dr Sanchez on 01/02/23. Right now her RTW date is 12/24/22. States work does not want her back with any restrictions. * Telephone Encounter - Kelley Catherine - 12/19/2022 12:04 PM EST Pt is calling stating she is to return to work on 12/24 Pt states she is still in a lot of pain Pt states she walks a little and has to sit down due to the pain Pt appointment is not until 01/02 Pt states she was not able to go PT in Nov due to having covid,after being neg her family had a stomach bug and then upper upper respiratory infection. Pt was requesting to be seen sooner by provider but no openings Pt wanted to know if her return to work date could be moved back until after her 01/02 appointment Pt states her job requires her to return with no restrictions Please contact pt with update Please advise documented in this encounterMercy [facility] Hospital02-24-2023 Miscellaneous Notes* Telephone Encounter - Vinay Corona RN - 12/21/2022 5:25 PM EST This RN called and spoke with patient regarding request for letter. A letter was written for her. She is reporting she was wanting to change providers and asking for her records to be sent to a newdoctor. I asked her to sign a release of records by coming in to fill it out and then we would sendthe information over but encouraged her that most providers do not take over post operative care that is this new. She reports an understanding of need for release and will call Alyx with the fax number to the new doctor. Mark Anthony direct number was given to the patient again and our direct fax number as she is reporting she is having a difficult time getting through to the team and reports paperwork as being faxed that I do not see. She was encouraged to refax them if she would like our office to complete them. documented in this encounterMercy [facility] Hospital02-10-2023 Evaluation note* Encounter Date Diagnosis Assessment Notes Treatment Notes Treatment Clinical Notes Nov, Viral URI with cough (ICD-10 - J06.9) Discussed diagnosis with patient. Advised patient that will treat as viral URI.Advised that she has had string of viral illnesses over the last few weeks, antibiotics do not treat viral illnesses. Supportive care as directed, increase fluids and rest, Tylenol as directed, rx of Bromfed and steroid as directed, cool mist humidifier, throat lozenges. Discussed infection control practices such as good hand washing and mask wearing. Patient to follow up with PCP if symptoms persist or worsen despite treatment. Immediate eval for SOB, difficulty, chest pain, fevers that do not break with antipyretic or any other concerning symptoms as reviewed on patient education handout. Patient verbalizes understanding and is agreeable to treatment plan. Patient left in stable condition [employer] Other 01-23-2023 Evaluation note* Encounter Date Diagnosis Assessment Notes Treatment Notes Treatment Clinical Notes Oct, Cough (ICD-10 - R05.9) Oct, Sore throat (ICD-10 - J02.9) Oct, Headache (ICD-10 - R51.9) Oct, Congestion of nasal sinus (ICD-10 - R09.81) [employer] Other 01-18-2023 NoteHNO ID: [id number] Author: RT Marquis(R) Service: Radiology Author Type: Technologist Type: Progress Notes Filed: 11/14/2022 4:05 PM Note Text: Radiology Service Progress Note PATIENT NAME: Edith Wells DATE OF SERVICE: November 14, 2022 TIME: 4:05 PM PATIENT IDENTITY VERIFICATION COMPLETED USING TWO (2) IDENTIFIERS: Name and Date of confirmed by patient verbally. FALL SCREENING: Has the patient had 2 falls in the last year or 1 fall with injury or currently using an Ambulatory Assistive Device (Walker, Cane, Wheelchair, Crutches, etc.)? Yes, Patient High Risk for Falls What interventions were put in place to prevent falls during this visit? Offered Assistance with Transfers/Clothing, Instructed Patient to Remain Seated (Not on Exam Table) Until Exam, and Increased Observations by Caregivers PATIENT GENDER DATA: Female. status: : No status: NO. PATIENT RELEVANT IMPLANT DATA REVIEWED: Not Applicable RADIOLOGY DEPARTMENT: General X-ray: Exam(s) Completed: Lower Extremity X-Ray(s): Ankle, Right PERIPHERAL IV DATA: Not applicable SIGNED BY: RT Marquis(R) November 14, 2022 4:[address] [facility]01-18-2023 History of Present illness Narrative* Syeda Jennings RT(R) - 11/14/2022 4:00 PM EST Radiology Service Progress Note PATIENT NAME: Edith Wells DATE OF SERVICE: November 14, 2022 TIME: 4:05 PM PATIENT IDENTITY VERIFICATION COMPLETED USING TWO (2) IDENTIFIERS: Name and Date of confirmedby patient verbally. FALL SCREENING: Has the patient had 2 falls in the last year or 1 fall with injury or currently using an Ambulatory Assistive Device (Walker, Cane, Wheelchair, Crutches, etc.)? Yes, Patient High Riskfor Falls What interventions were put in place to prevent falls during this visit? Offered Assistance with Transfers/Clothing, Instructed Patient to Remain Seated (Not on Exam Table) Until Exam, and Increased Observations by Caregivers PATIENT GENDER DATA: Female. status: : No status: NO. PATIENT RELEVANT IMPLANT DATA REVIEWED: Not Applicable RADIOLOGY DEPARTMENT: General X-ray: Exam(s) Completed: Lower Extremity X- Ray(s): Ankle, Right PERIPHERAL IV DATA: Not applicable SIGNED BY: RT Marquis(Wayne) November 14, 2022 4:05 PM documented in this encounterMercy [facility] Hospital01-18-2023 Evaluation note* Encounter Date Diagnosis Assessment Notes Treatment Notes Treatment Clinical Notes Oct, Leukocytosis (ICD-10 - D72.829) [employer] Other 01-17-2023 NoteHNO ID: [id number] Author: Tessa Sanchez MD Service: ? Author Type: Physician Type: Progress Notes Filed: 11/14/2022 9:40 PM Note Text: POD 11 weeks Surgery: right ankle arthroscopy, excision OCD medial talus, microfracture of talus, synovectomy, surgeon monitored fluoroscopy on 08/28/22 10+10 at last visit - she is working on this. She states she has some spot tenderness medially and some numb zingers mid-calf laterally. She feels she is about 50% weight bearing with a walker Dressings: NA Incision: healed with no redness Sutures: NA Drain: NA Pin sites: NA Right ankle pain: 6/10 Calf assessment: soft, non-tender, no complaints of pain Concerns: none currently Xrays done today: Debridement area looks stable and the talus Followup and plan: May transition with progressive weightbearing as discussed today. Physical therapy range of motion strengthening proprioception and follow-up in 4 weeks Tessa Sanchez [facility]01-17-[facility] History of Present illness Narrative* Tessa Sanchez MD - 11/13/2022 3:45 PM EST POD 11 weeks Surgery: right ankle arthroscopy, excision OCD medial talus, microfracture of talus, synovectomy, surgeon monitored fluoroscopy on 08/28/22 10+10 at last visit - she is working on this. She states she has some spot tenderness medially and some numb zingers mid-calf laterally. She feels she is about 50% weight bearing with a walker Dressings: NA Incision: healed with no redness Sutures: NA Drain: NA Pin sites: NA Right ankle pain: 6/10 Calf assessment: soft, non-tender, no complaints of pain Concerns: none currently Xrays done today: Debridement area looks stable and the talus Followup and plan: May transition with progressive weightbearing as discussed today. Physical therapy range of motion strengthening proprioception and follow- up in 4 weeks Tessa Sanchez MD documented in this encounterMercy [facility] Hospital01-16-2023 Evaluation note* Encounter Date Diagnosis Assessment Notes Treatment Notes Treatment Clinical Notes Oct, Nausea (ICD-10 - R11.0) She voices that she does not feel right . I would like to rule out . I do not want to add any medication until we know for sure if she is or not. She is agreeable to this and will have this done at the [facility] lab. She can call for results. She voices that this feels different then when her heart is acting up. Oct, Light headedness (ICD-10 - R42) Oct, Fatigue (ICD-10 - R53.83) She voices that all she wants to do is sleep, she has been very exhausted. I am going to order a viral panel and a mono test to be done as well to rule out abnormalities. She is to have the lab drawn today and call for the results tomorrow. Oct, Abdominal pain (ICD-10 - R10.9) She voices that she did have alot of gas and abdominal pain, this has improved. I am going to order testing to rule out any abnormalities. Oct, Other 2:54 PM - 3:02 PM [employer] Other 12-14-2022 NoteHNO ID: [id number] Author: Tessa Sanchez MD Service: ? Author Type: Physician Type: Progress Notes Filed: 10/10/2022 8:34 PM Note Text: #POD 6 weeks Surgery: right ankle arthroscopy, excision OCD medial talus, microfracture of talus, synovectomy, surgeon monitored fluoroscopy on 08/28/22 She is NWB, in boot and using scooter. She is achy today. Dressings: NA Incision: dry/intact/well-approximated, no redness Sutures: NA Drain: NA Pin sites: NA Right ankle pain: 8/10 - she feels this across the top of her ankle, more pain with foot dependent Calf assessment: soft, non-tender, no complaints of pain Concerns: none currently Followup and plan: Patient will work on range of motion and attend more physical therapy. She can advance her weightbearing at 10 pounds a day as instructed and follow-up in 6 weeks for recheck Tessa Sanchez [facility]12-14-[facility] History of Present illness Narrative* Tessa Sanchez MD - 10/10/2022 4:26 PM EST #POD 6 weeks Surgery: right ankle arthroscopy, excision OCD medial talus, microfracture of talus, synovectomy, surgeon monitored fluoroscopy on 08/28/22 She is NWB, in boot and using scooter. She is achy today. Dressings: NA Incision: dry/intact/well-approximated, no redness Sutures: NA Drain: NA Pin sites: NA Right ankle pain: 8/10 - she feels this across the top of her ankle, more pain with foot dependent Calf assessment: soft, non-tender, no complaints of pain Concerns: none currently Followup and plan: Patient will work on range of motion and attend more physical therapy. She can advance her weightbearing at 10 pounds a day as instructed and follow-up in 6 weeks for recheck Tessa Sanchez MD documented in this encounterMercy [facility] Hospital12-02-2022 Miscellaneous Notes* Telephone Encounter - Lizzette Adams RN - 09/28/2022 2:23 PM EST I spoke with Kathie on 09/26/22. Lizzette Adams RN * Telephone Encounter - Rita Taveras Pss - 09/26/2022 11:12 AM EST Patient requesting to speak with provider or staff in regards to right leg pain. She is having painfrom her toes up to her knee. Her right ankle surgery was 08/28/22 and questions if pain is normal?Patient is to start therapy today at 6 pm. Patient requesting a return call through #[phone] #[phone]. The second number is her boyfriends line, Elias. Patient gives okay to leave me ssage with Elias if needed. Please advise. documented in this encounterMercy Memorial Hospital11-16-2022 NoteHNO ID: [id number] Author: Tessa Sanchez MD Service: ? Author Type: Physician Type: Progress Notes Filed: 09/12/2022 8:06 PM Note Text: POD #15 Surgery: right ankle arthroscopy, excision OCD medial talus, microfracture of talus, synovectomy, surgeon monitored fluoroscopy on 08/28/22 She is feeling well today, Dressings: short leg non weight bearing cast removed to check incision and remove sutures and replaced with her own tall aircast-type boot Incision: dry/intact/well-approximated, no redness Sutures: removed today Drain: NA Pin sites: NA Right ankle pain: 0-4/10 Calf assessment: soft, non-tender, no complaints of pain Concerns: none currently Followup and plan: She will start working with PT for ankle ROM and strengthening and follow up in 4 weeks. Tessa Sanchez [facility]11-16-[facility]22 NoteHNO ID: [id number] Author: Alfred Campo Cast Service: ? Author Type: ? Type: Progress Notes Filed: 09/12/2022 4:10 PM Note Text: PT ASSESSMENT - CASTING ROOM Edith presents for cast removal. Applied pneumatic aircast walker(HAD PRIOR TO SURGERY) to Right leg non-weight bearing Patient has been instructed in Care of boot.. Alfred Campo Cast Beeper: [id number]11-16-[facility]22 History of Present illness Narrative* Tessa Sanchez MD - 09/12/2022 4:05 PM EST POD #15 Surgery: right ankle arthroscopy, excision OCD medial talus, microfracture of talus, synovectomy, surgeon monitored fluoroscopy on 08/28/22 She is feeling well today, Dressings: short leg non weight bearing cast removed to check incision and remove sutures and replaced with her own tall aircast-type boot Incision: dry/intact/well-approximated, no redness Sutures: removed today Drain: NA Pin sites: NA Right ankle pain: 0-4/10 Calf assessment: soft, non-tender, no complaints of pain Concerns: none currently Followup and plan: She will start working with PT for ankle ROM and strengthening and follow up in 4 weeks. Tessa Sanchez MD documented in this encounterMercy Memorial Hospital11-16-2022 History of Present illness Narrative* Alfred Campo Cast - 09/12/2022 4:04 PM EST PT ASSESSMENT - CASTING ROOM Edith presents for cast removal. Applied pneumatic aircast walker(HAD PRIOR TO SURGERY) to Right leg non-weight bearing Patient has been instructed in Care of boot.. Alfred Campo Cast Beeper: [id number] documented in this encounterMercy Memorial Hospital11-07-2022 Miscellaneous Notes* Telephone Encounter - Lizzette Adams RN - 09/03/2022 5:11 PM EST I spoke at length with Edith. I offered cast change today or tomorrow morning. She asked to change her anti-inflammatory medication to a different medication that would decrease the swelling better. I discussed aniti-inflammatory meds with her and told her the best action for decreasing swelling is elevation, staying NWB. Dr. Sanchez advised that she could change to OTC ibuprofen if she wanted totry that for pain relief, she really wanted to try that. She was advised that if swelling continued, we were open to having her come here, even though it is a distance, to come in for a cast change and check of her incisions. Lizzette Adams RN * Telephone Encounter - Amparo Guillory RN - 09/03/2022 12:16 PM EST The pt is calling. She had surgery on her ankle last Saturday. She states she is in a lot of pain there is a lot of swelling in her ankle, the cast feels very tight and she has some numbness and tingling. Last night her toes were very swollen and purplish in color. Today they are a more normal color butstill have a hint of purple. She did keep her leg elevated since 2 pm yesterday but still feels like there is a lot of swelling. She is taking Tylenol, Toradol, and Oxycodone as directed. Last night would have rated the pain a 10, today rates it an 8. Her next appt is not until 09/12. Please advise. documented in this encounterMercy Memorial Hospital11-07-2022 NoteHNO ID: [id number] Author: Lizzette Adams RN Service: ? Author Type: ? Type: Progress Notes Filed: 09/03/2022 8:14 AM Note Text: POD #1 Surgery: right ankle arthroscopy, excision OCD medial talus, microfracture of talus, synovectomy, surgeon monitored fluoroscopy on 08/28/22 She is recovering well so far, reasonable postop ankle swelling, pain controlled. Dressings: postop splint and dressings removed to check incision and replaced with short leg non weight bearing cast Incision: dry/intact/well-approximated, no redness Sutures: intact Drain: NA Pin sites: NA Right ankle pain: 0-2/10 Calf assessment: soft, non-tender, no complaints of pain Concerns: none currently Followup and plan: at 2-3 weeks postop for cast change, incision check and suture/zipline removal Patient's postop care today was delivered under Dr. Sanchez' postop care plan. Dr. Qureshi was the physician present today. Lizzette Adams RNMetrohealth Cleveland Heights [facility] Center11-06-2022 Miscellaneous Notes* Telephone Encounter - Eyad Shelby MD - 09/02/2022 5:35 PM EST Patient called the orthopedic surgery meet me line. She reported episodic numbness and paresthesiasthat have been occurring on and off since Saturday. She reported they were present at the time and they were nonspecific. She stated she was able to wiggle her toes a little bit. She was not able to reach her toes to test passive stretch pain. She reported she did have some pain and that her cast felt tight. When asked, she stated she had been somewhat elevating her foot. I reinforced the importance of elevating her foot and recommended that she do so on 3 or so pillows to make sure she was significantlyabove the level of the heart. I recommended that she do that for 23 hours/day given the increased risk of swelling in the setting of a postoperative state for foot and ankle surgery. I stated that ifher decree sensation/paresthesias and pain got worse or did not improve after 30 minutes of strict elevation that she should present quickly to her local emergency department or urgent care for further evaluation and possible adjustment of her cast. The patient was in agreement with this plan and all questions were answered. Kristina Shelby MD Orthopaedic Surgery, PGY-3 documented in this encounterMer[facility]11-[facility]-2022 NoteHNO ID: [id number] Author: Alfred Campo Gladis Service: ? Author Type: ? Type: Progress Notes Filed: 08/29/2022 3:44 PM Note Text: PT ASSESSMENT - CASTING ROOM Edith presents for Application of cast. Applied short cast: to Right leg non-weight bearing Patient has been instructed in Care of cast.. Alfred Campo Cast Beeper: [id number] of Present illness Narrative* Alfred Campo Cast - 08/29/2022 3:40 PM EDT PT ASSESSMENT - CASTING ROOM Edith presents for Application of cast. Applied short cast: to Right leg non-weight bearing Patient has been instructed in Care of cast.. 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, 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 Reason for block: post-op pain management/at surgeon's request Staffing Anesthesiologist: Mike Alcantar MD Performed by: anesthesiologist Preparation Sterility Preparation: hand hygiene performed prior to procedure, sterile gloves, drapes, and procedure tray, surgical cap used, mask used, sterile drape used during line insertion, skin prep agent completely dried prior to procedure Site Prep: Chloraprep Pre-Procedure Neuro Exam Location: RLE Sensory: intact Motor: intact Procedure Details Patient Position: supine Monitoring: Pulse OX, EKG and NIBP Block Type Lower Extremity: distal femoral (adductor canal) Laterality: right Injection Technique: catheter Ultrasound Guided: Yes Image in Chart: yes Local Infiltration: Yes Needle Needle Type: echogenic and Tuohy Needle Gauge: 18 G Needle Length: 90 mm Needle Localization: ultrasound Catheter Type: closed end Catheter Size: 20 G Assessment Injection assessment: negative aspiration, no paresthesia on injection, incremental injection and local visualized surrounding nerve on ultrasound Paresthesia: none Post-Procedure Neuro Exam Expected Regional Anesthesia: Yes Medications Administered ropivacaine (PF) 5 mg/mL (0.5 %) injection (NAROPIN) - peripheral nerve block 10 mL - 08/28/2022 12:48:00 PM dexamethasone sodium phosphate injection (DECADRON) - peripheral nerve block 4 mg - 08/28/2022 12:48:00 PM SIGNATURE: Mike Alcantar MD PATIENT NAME: Edith Wells DATE: August 28, 2022 TIME: 1:00 PM CSN: [id number] NoteHNO ID: [id number] Author: GEORGIE Tinsley Service: Anesthesiology Author Type: Call Center Assistant Type: Anesthesia Procedure Notes Filed: 08/28/2022 10:57 AM Note Text: ANESTHESIOLOGY PROCEDURE NOTE Airway General Information Procedure Start Time/Medication Administration: 08/28/2022 10:37 AM Patient location during procedure: OR Staffing Anesthesiologist: Mike Alcantar MD CAA: GEORGIE Tinsley Performed by: ROSEMARIE Indications and Patient Condition Indications for airway management: anesthesia Preoxygenated: yes anesthesia circuit Patient position: sniffing Method: asleep Difficult Mask: No Final Airway Details Final airway type: supraglottic airway Number of attempts at approach: 1 Final Supraglottic Airway: IGEL Size 4 Seal Adequate: yes Airway not difficult SIGNATURE: GEORGIE Tinsley PATIENT NAME: Edith Wells DATE: August 28, 2022 TIME: 10:56 AM CSN: [id number] NoteHNO ID: [id number] Author: Mike Alcantar MD Service: Anesthesiology Author Type: Anesthesiologist Type: Anesthesia Procedure Notes Filed: 08/28/2022 9:35 AM Note Text: ANESTHESIOLOGY PROCEDURE NOTE Peripheral Nerve Block General Information Procedure Start Time/Medication Administration: 08/28/2022 9:16 AM Procedure End time: 08/28/2022 9:24 AM Patient location during procedure: pre-op Timeout Performed Pre-procedure: timeout performed (920) Consent Obtained: Yes 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, 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 Reason for block: post-op pain management/at surgeon's request Staffing Anesthesiologist: Mike Alcantar MD Performed by: anesthesiologist Preparation Sterility Preparation: hand hygiene performed prior to procedure, sterile gloves, drapes, and procedure tray, surgical cap used, mask used, sterile drape used during line insertion, skin prep agent completely dried prior to procedure Site Prep: Chloraprep Pre-Procedure Neuro Exam Location: RLE Sensory: intact Motor: intact Procedure Details Patient Position: left lateral decubitus Monitoring: Pulse OX, NIBP and EKG Block Type Lower Extremity: sciatic Approach: popliteal fossa and lateral Laterality: right Injection Technique: catheter Ultrasound Guided: Yes Image in Chart: yes Local Infiltration: Yes Needle Needle Type: echogenic and Tuohy Needle Gauge: 18 G Needle Length: 90 mm Needle Localization: ultrasound Catheter Type: closed end Catheter Size: 20 G Assessment Injection assessment: negative aspiration, no paresthesia on injection, incremental injection and local visualized surrounding nerve on ultrasound Paresthesia: none Post-Procedure Neuro Exam Expected Regional Anesthesia: Yes Medications Administered dexamethasone sodium phosphate injection (DECADRON) - peripheral nerve block 4 mg - 08/28/2022 9:16:00 AM midazolam injection (VERSED) - INTRAVENOUS 2 mg - 08/28/2022 9:16:00 AM ropivacaine (PF) 5 mg/mL (0.5 %) injection (NAROPIN) - peripheral nerve block 20 mL - 08/28/2022 9:16:00 AM SIGNATURE: Mike Alcantar MD PATIENT NAME: Edith Wells DATE: August 28, 2022 TIME: 9:33 AM CSN: [id number] Miscellaneous Notes* Telephone Encounter - Kasi Mathur PA-C - 08/24/2022 1:26 PM EDT Good afternoon Dr. Sanchez, Just wanted to keep you in the loop. Repeat WBC today was normal. Lab Value Units Date High Low HB 12.4 g/dL 08/24/2022 15.5 11.5 HCT 37.6 % 08/24/2022 46.0 36.0 WBC 8.69 k/uL 08/24/2022 11.00 3.70 PLT 386 k/uL 08/24/2022 400 150 NA 137 mmol/L 08/15/2022 144 136 K 3.8 mmol/L 08/15/2022 5.1 3.7 GLUC 109 mg/dL 08/15/2022 99 74 BUN 20 mg/dL 08/15/2022 21 7 CREAT 0.60 mg/dL 08/15/2022 0.96 0.58 PTSEC No results within date range. INR No results within date range. APTT No results within date range. ALT No results within date range. AST No results within date range. TBILI No results within date range. TSH No results within date range. Thank you! Kasi Mathur PA-C * Telephone Encounter - Kasi Mathur PA-C - 08/16/2022 8:36 AM EDT Response from Dr. Sanchez's team: Alyx James You 19 hours ago (1:29 PM) NG Dr. Sanchez agrees with the medrol/ prednisone thoughts. If she is not infectious, sick-feeling, could re-draw closer to surgery date to see levels. Telephone call placed to patient. Advised that her WBC level is elevated, but we believe it is fromthe current steroids she is taking for her back pain. She denies having signs or symptoms of infection at this time. She has two more days of steroid treatment. We will order a repeat CBC for patient to complete on 08/24/2022 which will give results prior to surgery. If anything changes or she develops signs or symptoms of infection, she will call me. * Telephone Encounter - Kasi Mathur PA-C - 08/15/2022 9:[address]T Good [address]. 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 She had her pre-op labs this morning which revealed an elevated WBC count. She took a medrol dose pack on 08/02 for back pain and had just started Prednisone 60 mg daily for 5 days for ongoing back pain. I suspect her elevated WBC level is from the steroids, but wanted to review with you. Can you please review results and advise if you have concerns proceeding with upcoming surgery? CBC with diff: WBC 16.45 08/15/2022 RBC 4.36 08/15/2022 Hemoglobin 13.4 08/15/2022 Hematocrit 39.9 08/15/2022 MCV 91.5 08/15/2022 MCH 30.7 08/15/2022 MCHC 33.6 08/15/2022 RDW-CV 13.5 08/15/2022 Platelet Count 409 08/15/2022 MPV 9.2 08/15/2022 Thank you for your time, Kasi Mathur PA-C PACC documented in this encounterMer[facility]10-18-2022 Instructions* Patient Instructions* Kasi Mathur PA-C - 08/14/2022 11:33 AM EDT Lab in [place]: [facility], [place] [id number] PATIENT PREOPERATIVE INSTRUCTIONS Tessa Sanchez MD has scheduled you for your procedure at this surgery center: [facility]: [phone] --[address] [id number]. Please read below carefully for your personalized instructions. Dietary Restrictions: - No solid food after midnight. - You may have 12 ounces of clear liquids (water, clear juices such as apple juice or gatorade, carbonated beverages, clear tea, black coffee, jello) until 2 hours before scheduled arrival at facility. Medications: Unless instructed differently below, stay on all of your medications until your surgery. Approved medications to take the morning of surgery with a sip of water: None If you start any new medications after today's visit, please contact the surgeon's office. Blood Thinning Medications: - Stop NSAIDS (Ibuprofen, Advil, Aleve, Motrin, Celebrex, Mobic, etc.) 7 days before surgery, as directed by your surgeon. - Stop Aspirin 7 days before surgery, as directed by your surgeon. - Stop Vitamin E, ALL multi-vitamins, herbals and dietary supplements 14 days before surgery. - You may take Tylenol (Acetaminophen) or any of your pain medications that do not contain aspirin or NSAIDS as needed. Important Reminders: - Candy, mints, and tobacco products are NOT permitted the morning of surgery. - Hearing aids, dentures and glasses may be worn the morning of surgery. - NO jewelry, body piercings, makeup, hairpins or contacts are to be worn the day of surgery. If you develop symptoms such as a fever, cold, or flu, or have other changes to your health within TWO DAYS of scheduled surgery or the morning of surgery, please contact the surgery center above. Personal Belongings: -Please have photo ID and insurance cards. -If you do not have a copy of advance directives on file with us, please bring a copy with you on the day of surgery. - Leave ALL valuables and money at home or with family members. For Outpatient Procedures: - YOU MUST HAVE A RESPONSIBLE BOX LINING MACHINE FEEDER TAKE YOU HOME. A ASSET AVAILABILITY LEADER OR METAL FLOORING INSTALLER CANNOT BE MADE A RESPONSIBLE BOX LINING MACHINE FEEDER. - We recommend that a responsible person stays with you overnight to take care of you. - You cannot stay in a hotel alone after outpatient surgery. You will not be permitted to have yoursurgery, if you do not have someone to take care of you. Arrival Time for Surgery: - The Surgery Center or hospital where you are having surgery will call the afternoon before surgery (or Saturday for Saturday surgery) with a scheduled arrival time. - If you have not heard by 4 pm, please contact the surgery center above. Please be aware that emergency situations arise, which may delay or change your surgical time. If this happens, we will notify you as soon as possible and regret any inconvenience. If you already have an Advance Directive, please fax a copy to [phone] or email to for it to be added to your chart. If you do not have an Advance Directive, you can find the appropriate form and more information at [email or web address]. We recommend that youcomplete the Advance Directive form found on the website and bring it with you the day of your surgery. It can be witnessed and scanned into your chart that day. Kasi Mathur PA-C documented in this encounterMer[facility]10-18-2022 History and physical note * Kasi Mathur PA-C - 08/14/2022 11:00 AM EDT PREANESTHESIA CONSULT CLINIC TELEHEALTH VISIT Patient has been identified by name and date of : Yes This is a virtual visit using Alternative video platform. It require patient- provider interaction for the medical decision making as documented below. Reason for contact: PACC visit Accompanied by: Self Scheduled Surgery: ARTHROSCOPY ANKLE EXCISION 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- Right Subjective CHIEF COMPLAINT: Patient presents with: Pre-Op Visit HPI: This is a 27 year old female who presents with right ankle pain since April 2022. She reports intermittent up to 8-9/10 pain that is achy or throbbing quality with prolonged walking. She also sometimes has shooting pain. She was diagnosed with osteochondritis dessicans of right talus and electsto proceed with above procedure. ACTIVE PROBLEM LIST Lightheadedness Palpitations Osteochondritis Dissecans of Right Talus Anxiety and Depression Ptsd (Post-Traumatic Stress Disorder) Bmi 40.0-44.9, Adult (Hcc) History of Palpitations Former Smoker History of Syncope Difficult Intravenous Access Anemia PAST MEDICAL HISTORY Diagnosis Date Back pain BMI 40.0-44.9, adult (HCC) Former smoker PVC's (premature ventricular contractions) PAST SURGICAL HISTORY Procedure Laterality Date PAST SURGICAL HISTORY OF x3 - last 11/2021 TONSILLECTOMY HX FAMILY HISTORY Problem Relation Age of Onset Heart Mother Heart Father Asthma Brother Anesthesia Problems No Family History Social History Tobacco Use Smoking status: Former Packs/day: 0.33 Years: 8.00 Pack years: 2.64 Types: Cigarettes Quit date: 2019 Years since quittin.7 Smokeless tobacco: Never Vaping Use Vaping Use: Never used Substance Use Topics Alcohol use: No Drug use: No ALLERGIES No Known Allergies MEDICATIONS: Current Outpatient Medications Medication Sig predniSONE (DELTASONE) 20 mg tablet Take 1 tablet by mouth three times daily. cyclobenzaprine (FLEXERIL) 5 mg tablet Take 1 tablet by mouth three times daily as needed. 1 in themorning, 1 in the after, 2 at hs prn for back pain sertraline (ZOLOFT) 50 mg tablet Take 50 mg by mouth once daily. No current facility-administered medications for this visit. COVID VACCINATION STATUS: Not vaccinated, prior infection - history of COVID-19 12/2021 had headache, sore throat and aches. Symptoms lasted 10 days. Denies having complications or requiring treatment. Previous infection 09/2021 with more significant symptoms, but did not require hospitalization REVIEW OF SYSTEMS: Pain Assessment: General: No weight loss, malaise or fevers. Neuro: No history of TIA's, stroke, EYE CARE PROFESSIONAL tumor, impaired sensorium, hemiplegia, paraplegia or quadraplegia. No neurological symptoms or problems. Respiratory: Positive for former smoker (quit 2019, 10/30 ppd x 8 years, Negative for Asthma, COPD, Current cough, URI < 2 weeks Cardiovascular: Positive for: bradycardia and history of PVCs - history of Betaxolol tx, history ofsyncope x2 2018 and 2019 (had low potassium for 1 episode)- no further syncope, Negative for RecentMI, CAD, Chest Pain, CHF, Valvular Heart Disease, DVT/PE, edema, orthopnea, further syncope, palpitations GI: Positive for GERD - takes TUMS prn, Negative for Nausea, Vomiting, Abdominal pain, Hepatitis, Pancreatitis : No history of dysuria, frequency or incontinence,, stones or chronic kidney disease 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 : Denies, Patient's last menstrual period was 07/02/2022. Endocrine: history of medrol dose pack 08/02/2022 and Current Prednisone 60 mg x 5 days for LBP (started yesterday). Denies DM or thyroid disease/symptoms Hematology: Anemia during Oncology: No history of CA metastasis, chemo within 30 days, or radiotherapy within 90 days. Has not lost 10% of body wt in 6 months. No history of oncological symptoms or problems. Psych: Anxiety, Depression, PTSD - on Zoloft at hs. Denies SI/HI Musculoskeletal: Back pain- no numbness/tingling or radiation, see HPI Skin: Negative for lesions, rash and itching. Objective PHYSICAL EXAM: Pulse 60[patient counted[ Ht 5' 5 [patient reported[ (1.65m) Wt 266 lb (120.7kg) LMP 07/02/2022 BMI 44.26 kg/(m^2). VIDEO EXAM: (if completed, performed via video enabled technology) GENERAL: alert and appropriate, in no distress, well-hydrated, well nourished, and happy, smiling, interactive SKIN: no rash noted HEAD: normocephalic, no abnormality or lesion noted EYES: no injection NOSE: external nose normal without rhinorrhea NECK: full ROM RESPIRATORY: breathing non-labored and no grunting/flaring/retractions CHEST: equal chest rise with normal respiratory effort HEART: Patient confirmed radial pulse and counted aloud with regular rhythm. HR 60 BPM. No cyanosis ABDOMEN: soft and non-tender NEUROLOGIC: no cerebral deficits noted Diagnostic tests reviewed for today's visit: Labs per care everywhere reviewed: [facility] Hgb 9.0 (11.8-15.4) Hct 26.5% (34-46.4%) Normal WBC and platelets Previous 10.8 Hgb 10/14/2021 CMP (care everywhere) Normal creatinine, GFR, AST, BUN, K Glucose 113 NA 135 (137-145), ALT 13 (14-36) EKG 01/15/2019 MARKED SINUS BRADYCARDIA WITH PREMATURE SUPRAVENTRICULAR COMPLEXES ABNORMAL ECG Echocardiogram 05/21/2019 CONCLUSIONS: - Exam indication: Syncope - The left ventricle is normal in size. Left ventricular systolic function is normal. EF = 65 5% (2D biplane) - The right ventricle is normal in size. Right ventricular systolic function is normal. - The patient has not had a prior CC echocardiographic exam for comparison. gambling monitor 09/17/2018 Patient had a min HR of 36 bpm, max HR of 156 bpm, and avg HR of 74 bpm. Predominant underlying rhythm was Sinus Rhythm. No Isolated SVEs, SVE Couplets, or SVE Triplets were present. Isolated VEs were frequent (8.2%, 15584), and no VE Couplets or VE Triplets were present. Ventricular Bigeminy and Trigeminy were present. Many symptomatic events occurred in the absence of arrhythmia. Independently reviewed and verified Yifan Bernal MD September 17, 2018 1:52 PM Impression/Recommendations ASSESSMENT: 1. Preop examination Scheduled for above procedure 2. Anemia, unspecified type Patient had gestational anemia during (s/p 11/2021) - check updated CBC pre-op - CBC; Future 3. Difficult intravenous access Reports sometimes has required ultrasound guidance 4. Acute bilateral low back pain without sciatica Patient was on Medrol dose pack 08/02/2022 for back pain and is again on steroids for ongoing LBP. She started Prednisone 20 mg tid today x 5 days 5. History of syncope Patient has a history of 2 episodes of syncope (2018 and 2019). She mentioned that for one of theseepisodes, she was found to have hypokalemia. She denies further syncope and has felt well. Will check updated chemistry pre-op 6. History of palpitations History of bradycardia and frequent PVCs. Had cardiac evaluation in 2019 including EKG and echocardiogram. Heart rhythm monitor in 2018 revealed frequent PVCs with bigeminy and trigeminy. She was on Betaxolol for a short period of time, but stopped it due to low blood pressure. She denies recent palpitations and has been asymptomatic. 7. Former smoker Quit 2019, 3 ppd x years 8. BMI 40.0-44.9, adult ([facility]) BMI 44 METS: Climb a flight of stairs or walk up a hill (5.50 METs) Patient denies any chest pain or undue shortness of breath with the above physical activity. Cares for her 3 children ASA Class: 3 ANESTHESIA FINDINGS: Intubation History: No history of difficult intubation Significant Anesthesia Considerations: Difficult IV/Vein Access: has rolling veins, sometimes has required ultrasound guidance History of facial puffiness after her second . Does not recall if they gave her benadryl or if they felt it was an allergic reaction. Has not had other problems with anesthesia Airway Exam: General: Morbid obesity Mallampati Score is CLASS I ULBT: Class I - Lower incisors can bite the upper lip above the yasir line Neck: short/thick neck, full ROM Mouth: Normal tongue size and Mouth opening greater than 2 finger breaths Dentition: right lower missing molar Airway History: No abnormal airway history STOP BANG Score: Criteria: Snoring Tired (sometimes) BMI > 35 Neck circumference > 15.75 inches Score = 4 PLAN: This patient is optimally prepared for surgery pending labs and review for ASC setting. Control Drug Interaction with Sugammadex ([place] ): Information for Female Surgery Patients handout given to patient. CONSULTS: Anesthesia Consult chart review -sent The Following Tests/Procedures Have Been Initiated: Orders Placed This Encounter CBC Standing Status: Future Standing Expiration Date: 10/14/2022 BMP Standing Status: Future Standing Expiration Date: 10/14/2022 predniSONE (DELTASONE) 20 mg tablet Sig: Take 1 tablet by mouth three times daily. cyclobenzaprine (FLEXERIL) 5 mg tablet Sig: Take 1 tablet by mouth three times daily as needed. 1 in the morning, 1 in the after, 2 at hs prn for back pain Planned Anesthetic: General Instructions Given to Patient: Patient given verbal instructions and voices comprehension and compliance. Copy sent electronically via My Chart, email, or mobile device. It was necessary to convert the virtual visit to a telephone encounter due to technical difficulties. This is a virtual visit. It required patient-provider interaction for the medical decision making as documented above. SIGNATURE: Kasi Mathur PA-C PATIENT NAME: Edith Wells DATE: 08/14/2022 TIME: 11:04 AM PAGER/CONTACT #: documented in this encounterMercy [facility] Hospital10-17-2022 Evaluation note* Encounter Date Diagnosis Assessment Notes Treatment Notes Treatment Clinical Notes Jul, Lumbar pain (ICD-10 - M54.50) She was seen at the ER on 08-01-22 for evaluation, an x-ray was done. I did independently review the x-ray report and ER report. She did take the medrol dose pack that she was given by the ER and voices that she did begin to feel better but then due to carrying her baby up the stairs her back began to hurt and this along with cleaning caused her to have pain again. She is using Lidocaine pain patches which provide pain relief for 3-4 hours. She is currently off work due to having had surgery on her right ankle. She has never had pain like this in her back before. She has been in a boot for her right ankle since April (2021). Jul, SI (sacroiliac) joint dysfunction (ICD-10 - M53.3) I would like to have her take steroids, I am going to prescribe this and she can discuss this treatment with her gear repairer. She is having surgery on 08-28-22. Guidance is given on how to take the medication. Side effects/risks/benefi ts of medication were reviewed. Do not drink alcohol or drive after taking Flexeril. She cannot take any Ibuprofen or NSAID medication while on the Prednisone. She can take Tylenol if needed 3000 MG per day. I did offer to provide her with an order for physical therapy but she would like to wait because she may be attending physical therapy after she has had surgery for her foot. Jul, Other She voices that her right foot is not getting better so she will be following with Dr. Sanchez at the [facility] location, she was referred to him by Dr. Cosby. She thinks it is bone that is trying to heal. [employer] Other 10-12-2022 NoteHNO ID: [id number] Author: Tessa Sanchez MD Service: ? Author Type: Physician Type: Progress Notes Filed: 2022 12:58 PM Note Text: New Patient Referring Physician: Charbel Cosby Edith Wells is a 27 year old female referred by Charbel Cosby for her right foot pain. She states that she has been having this pain since April. She states that she does not recall any injury to her foot. She came in today wearing a boot. She states that she believe that her family kick ball game was the cause of her pain. She states that her pain level is 6/10 she states the pain feeling throbbing and achy. She is taking over the counter medication for the pain and does feel like it is helping her at times. Consultation requested by Dr. Charbel Cosby for an opinion regarding her right foot pain . My final recommendations will be communicated back to the requesting physician by way of shared medical record or letter via US mail . Do you have a metal allergy?: No Current Outpatient Medications Medication Sig Dispense Refill betaxolol (KERLONE) 10 mg tablet Take 0.5 tablets by mouth once daily. 30 tablet 3 omeprazole (PRILOSEC) 20 mg capsule Take 20 mg by mouth once daily. sertraline (ZOLOFT) 50 mg tablet Take 50 mg by mouth once daily. ALPRAZolam (XANAX) 0.5 mg tablet Take 0.5 mg by mouth as needed. No current facility-administered medications for this visit. 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 Yes PAIN SCALE: 6 on a scale of 0-10 Pain Onset:sudden Does the pain radiate? No Associated Factors: swelling Precipitating Factors: Standing, Walking, and As day progresses Relieving Factors: medications - NSAIDs Progression: Constant Previous Treatment as follows: none ROS: Have you had any problems or treatment of the following? If yes please describe. Head:No Eyes:No Ears, nose or throat: No Lungs: No Heart or blood pressure: No Stomach or Bowels: yes Kidney or Bladder: No Female organs: No Nerve or mental illness: Yes: depression DM: No Peripheral Vascular Disease: No Inflammatory Arthritis: No Other: none Bleeding Disorders: No FAMILY HISTORY: Has any member of your immediate family (parents or siblings) had this same problem? If so , who? and what? No SOCIAL HISTORY Marital Status: single (never ) Tobacco: Ex-smoker, quit 3 years ago Alcohol: No alcohol consumption WORKERS' COMPENSATION CLAIM Have you missed work for this problem? No If yes, what dates have you missed? Pending Litigation? No What tests have been done for this problem? X-Rays and MRI Scan The patient's pertinent medical history from [facility] has been reviewed. PFOMIS forms have been reviewed. The patient's history of present illness has been confirmed. PHYSICAL EXAM: right foot Physical examination reveals an alert and oriented patient who is in no acute distress while sitting and is of normal mood and affect. There were no vitals taken for this visit. Gait Cycle: Normal Yes, Limp: none. Inspection: Alignment: Pes planus Symmetry: Swelling: yes. Redness: no. Ecchymosis: no Effusion: 0 Palpation: Warmth: no, Tenderness:Yes: Ankle: Medial ankle joint ROM: Ankle- Normal. Strength: 5 Stability: Ligamentous instability: no Specialized Tests: negative Neurologic Status: normal. 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 She would like to proceed with right ankle arthroscopy. I have discussed surgical and non-surgical methods of treatment with the patient. The natural history and course were discussed in relation to the options. Surgical risks, benefits, algorythm, post-operative course, and all possible outcomes were discussed in great detail. The patient will decide how they want to proceed. Procedure: Right ankle arthroscopy with OCD excision and microfracture The risks, benefits and anticipated outcomes of the procedure, the risks and benefits of the alternatives to the procedure, and the roles and tasks of the personnel to be involved, were discussed with the patient, and the (more content not included)...[facility]10-12-2022 History of Present illness Narrative* Tessa Sanchez MD - 2022 11:30 AM EDT New Patient Referring Physician: Charbel Wells is a 27 year old female referred by Charbel Cosby for her right foot pain. She states that she has been having this pain since April. She states that she does not recall any injury toher foot. She came in today wearing a boot. She states that she believe that her family kick ball game was the cause of her pain. She states that her pain level is 6/10 she states the pain feeling throbbing and achy. She is taking over the counter medication for the pain and does feel like it is helping her at times. Consultation requested by Dr. Charbel Cosby for an opinion regarding her right foot pain . My finalrecommendations will be communicated back to the requesting physician by way of shared medical record or letter via US mail . Do you have a metal allergy?: No Current Outpatient Medications Medication Sig Dispense Refill betaxolol (KERLONE) 10 mg tablet Take 0.5 tablets by mouth once daily. 30 tablet 3 omeprazole (PRILOSEC) 20 mg capsule Take 20 mg by mouth once daily. sertraline (ZOLOFT) 50 mg tablet Take 50 mg by mouth once daily. ALPRAZolam (XANAX) 0.5 mg tablet Take 0.5 mg by mouth as needed. No current facility-administered medications for this visit. 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 Yes PAIN SCALE: 6 on a scale of 0-10 Pain Onset:sudden Does the pain radiate? No Associated Factors: swelling Precipitating Factors: Standing, Walking, and As day progresses Relieving Factors: medications - NSAIDs Progression: Constant Previous Treatment as follows: none ROS: Have you had any problems or treatment of the following? If yes please describe. Head:No Eyes:No Ears, nose or throat: No Lungs: No Heart or blood pressure: No Stomach or Bowels: yes Kidney or Bladder: No Female organs: No Nerve or mental illness: Yes: depression DM: No Peripheral Vascular Disease: No Inflammatory Arthritis: No Other: none Bleeding Disorders: No FAMILY HISTORY: Has any member of your immediate family (parents or siblings) had this same problem? If so , who? and what? No SOCIAL HISTORY Marital Status: single (never ) Tobacco: Ex-smoker, quit 3 years ago Alcohol: No alcohol consumption WORKERS' COMPENSATION CLAIM Have you missed work for this problem? No If yes, what dates have you missed? Pending Litigation? No What tests have been done for this problem? X-Rays and MRI Scan The patient's pertinent medical history from [facility] has been reviewed. PFOMIS forms have been reviewed. The patient's history of present illness has been confirmed. PHYSICAL EXAM: right foot Physical examination reveals an alert and oriented patient who is in no acute distress while sitting and is of normal mood and affect. There were no vitals taken for this visit. Gait Cycle: Normal Yes, Limp: none. Inspection: Alignment: Pes planus Symmetry: Swelling: yes. Redness: no. Ecchymosis: no Effusion: 0 Palpation: Warmth: no, Tenderness:Yes: Ankle: Medial ankle joint ROM: Ankle- Normal. Strength: 5 Stability: Ligamentous instability: no Specialized Tests: negative Neurologic Status: normal. 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 She would like to proceed with right ankle arthroscopy. I have discussed surgical and non-surgical methods of treatment with the patient. The natural history and course were discussed in relation to the options. Surgical risks, benefits, algorythm, post-operative course, and all possible outcomes were discussed in great detail. The patient will decide how they want to proceed. Procedure: Right ankle arthroscopy with OCD excision and microfracture The risks, benefits and anticipated outcomes of the procedure, the risks and benefits of the alternatives to the procedure, and the roles and tasks of the personnel to be involved, were discussed with the patient, and the patient consents to the procedure and agrees to proceed. Equipment needed for surgery: Noninvasive distractor, 2.7 mm scope, ankle arthroscopy instruments, mini C arm Time required for surgery: 1 hour HPI explored in detail with patient and edited as necessary. This visit required reviewed the patient's medical records, updating historical information, assessing changes in physical examination, and review of all testing information. It required patient-provider interaction for the medical decision making as documented. The time and /or expertise required in this decision-making process, communicating the results as such with the patient and developing the treatment protocol is reflected in the charge capture section of these electronic medical records. This note was partially generated using [employer] voice recognition system, and there may be some incorrect words, spellings, and punctuation that were not noted in checking the note before saving. Scribe Attestation: By signing my name below, I, Pippaguadalupe Moss, attest that this documentation has been prepared under the direction and in the presence of Tessa Sanchez MD. Electronically Signed: alan Alarcon, 2022 12:01 PM I agree with the Chief Complaint, ROS, and Past Histories independently gathered by the clinical personal support worker and the remaining scribed note accurately describes my personal service to the patient. Tessa Sanchez M.D. [facility]* Encounter Date Diagnosis Assessment Notes Treatment Notes Treatment Clinical Notes Apr, Anxiety (ICD-10 - F41.9) Apr, Depression (ICD-10 - F32.9) She voices that things are good and she feels she is doing better. She is not crying as much and does not feel spacy . She feels this dose is adequate and would like to continue with this dose. I will provide her with a refill today. I did recommend that she stay on the medication for one year from when started on it. Apr, Ankle fracture (ICD-10 - S82.899A) right ankle She has seen an museum informatics specialist twice for a right ankle fracture. She voices that [facility] advised her that the fracture she had was one that only occurs in children which was odd, she does not recall ever having broken her ankle in the past. She thinks she may have a fracture on her growth plate. She has a break in the ball of the ankle. She is not sure how she broke it but she was playing kickball two days prior to her ankle hurting and was kicking with that foot. She has only ever broken her thumb when she was [age]. She does drink milk daily. She will see Dr. Cosby soon and an x-ray will be done at that time. I did recommend that she ask him if he thinks she needs a DEXA scan done to test her bone strength or not. She can keep me posted. Apr, Other 9:55 AM - 10:05 AM [employer] [employer] Other Evaluation noteNo assessment information available [facility] Work Phone: Evaluation note* Diagnosis Osteochondritis dissecans of right talus- Primary documented in this encounter [facility] noteNo InformationNort [employer] Other Evaluation note* Diagnosis Preop examination- Primary Preoperative examination, unspecified Anemia, unspecified type Difficult intravenous access Other specified conditions influencing health status Acute bilateral low back pain without sciatica History of syncope Other specified personal history presenting hazards to health History of palpitations Personal history of other diseases of circulatory system Former smoker Personal history of tobacco use, presenting hazards to health BMI 40.0-44.9, adult (HCC) Body Mass Index 40.0-44.9, adult Osteochondritis dissecans of right talus [facility] Diagnosis Leukocytosis, unspecified type- Primary Osteochondritis dissecans of right talus [facility] 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 [facility] Diagnosis Osteochondritis dissecans of right talus- Primary documented in this encounter [facility] note* Diagnosis Osteochondritis dissecans of right talus- Primary documented in this encounter [facility] note* Diagnosis Osteochondritis dissecans of right talus- Primary documented in this encounter [facility] note* Diagnosis Osteochondritis dissecans of right talus- Primary documented in this encounter [facility] note* Diagnosis Osteochondritis dissecans of right talus- Primary documented in this encounter [facility] note* Diagnosis Osteochondritis dissecans of right talus- Primary documented in this encounter [facility] note* Diagnosis Osteochondritis dissecans of right talus- Primary documented in this encounter [facility] note* Diagnosis Osteochondritis dissecans of right talus documented in this encounter [facility] general Narrative - Reported* Type Description Date Medical History reflux Medical History menstrual irregularity Medical History vertigo Medical History anxiety Medical History ankle fx right Surgical History T & A 2003 Surgical History Mole removal Surgical History C section Surgical History IUD -Reyna 03/31/17 Surgical History 11/28/21 Hospitalization History See Above [employer] Other History general Narrative - Reported* Type Description Date Medical History reflux Medical History menstrual irregularity Medical History vertigo Medical History anxiety Medical History ankle fx right Surgical History T & A 2003 Surgical History Mole removal Surgical History C section Surgical History IUD -Reyna 03/31/17 Surgical History 11/28/21 Surgical History right ankle surgery 08/28/22 Hospitalization History See Above [employer] Other History general Narrative - Reported* Type Description Date Medical History reflux Medical History menstrual irregularity Medical History vertigo Medical History anxiety Medical History ankle fx right Surgical History T & A 2003 Surgical History Mole removal Surgical History C section Surgical History IUD -Reyna 03/31/17 Surgical History 11/28/21 Surgical History right ankle surgery 08/28/22 Surgical History IUD removed 03/06/23 Hospitalization History See Above [employer] Other Reason for referral (narrative)* Diagnostic Procedure Only (Routine) - Pending Review Specialty Diagnoses / Procedures Referred By Juve duarte Referred To Contact XR IMAGING Diagnoses Osteochondritis dissecans of right talus Procedures XR ANKLE GENERAL 3V AP/LAT/OBL RIGHT RADEX ANKLE COMPLETE MINIMUM 3 [place] [address] [place] [address] Xr Imaging Referral ID Status Reason Start Date Expiration Date Visits Requested Visits Authorized [id number] Pending Review Auto-Generat ed Referral 11/02/2022 11/30/2023 1 1 [facility] for referral (narrative)* - Pending Review Specialty Diagnoses / Procedures Referred By Juve t Referred To Contact Physical Therapy Diagnoses Osteochondritis dissecans of right talus Procedures CONSULT [place] [address] [place] [address] Referral ID Status Reason Start Date Expiration Date V isits Requested Visits Authorized [id number] Pending Review 04/17/2023 07/16/2023 1 1 [facility] for referral (narrative)* Diagnostic Procedure Only (Routine) - Closed Specialty Diagnoses / Procedures Referred By Juve duarte Referred To Contact XR IMAGING Diagnoses Osteochondritis dissecans of right talus Procedures XR ANKLE GENERAL 3V AP/LAT/OBL RIGHT RADEX ANKLE COMPLETE MINIMUM [address] [place] [address] [place] [address] [place] [id number] Referral ID Status Reason Start Date Expiration Date V isits Requested Visits Authorized [id number] Closed Auto-Generate d Referral 01/02/2023 01/31/2024 1 1 [facility] for referral (narrative)* Diagnostic Procedure Only (Routine) - Closed Specialty Diagnoses / Procedures Referred By Contac t Referred To Contact XR IMAGING Diagnoses Osteochondritis dissecans of right talus Procedures XR ANKLE GENERAL 3V AP/LAT/OBL RIGHT RADEX ANKLE COMPLETE MINIMUM 3 [place] [address] [place] [address] [facility] [id number] Referral ID Status Reason Start Date Expiration Date V isits Requested Visits Authorized [id number] Closed Auto-Generate d Referral 11/02/2022 11/30/2023 1 1 [facility] Summary Purpose Family History No Family History Records Found Relationship Condition Age at Onset Recorded Date/T domingo Not Specified No pertinent family history Unknown Advance Directives No Advanced Directives Records Found Advance Directive Response Recorded Date/ Time Advance Directives No September 2:17pm Chief Complaint and Reason for Visit Chief Complaint rt ankle pain Reason for Referral Specialty Diagnoses / Procedures Referred By Contac t Referred To Contact [facility] Diagnoses Osteochondritis dissecans of right talus Procedures CONSULT TO PHYSICAL THERAPY PHYSICAL THERAPY EVALUATION HIGH COMPLEX [address] [place] [address] [place] [address] [facility] [address] [place] [address] Referral ID Status Reason Start Date Expiration Date Visits Requested Visits Authorized [id number] Pending Review Auto-Generat ed Referral 2 09/12/2023 1 1 Additional Source Comments INFORMATION SOURCE (unrecogn ized section and content) DATE CREATED AUTHOR 05/08/2022 [facility] DATE CREATED AUTHOR AUTHOR'S ORGANIZ ATION 08/29/2022 [facility] DATE CREATED AUTHOR AUTHOR'S ORGANIZ ATION 11/15/2022 [facility] DATE CREATED AUTHOR AUTHOR'S ORGANIZ ATION 05/28/2023 [facility] DATE CREATED AUTHOR AUTHOR'S ORGANIZ ATION 06/27/2023 [facility] DATE CREATED AUTHOR AUTHOR'S ORGANIZ ATION 03/06/2024 [facility] EPIC Care Teams (unrecognized sec tion and content) Team Status: Inactive Member Role Status Dates Charbel Rodriguez DO Primary Care Provider Active Constantine Yee PA-C Emergency Provider Active Team Status: Active Member Role Status Dates Charbel Rodriguez DO Primary Care Provider Active Director Of Surgery Relationship Specialty Start Date End Date Charbel Rodriguez, DO [address] [place] [address] PCP - [facility] Medicine 07/07/18 Charbel Cosby [address] [place] [id number] Referring Orthopedics 07/18/22 Director Of Surgery Relationship Specialty Start Date End Date Charbel Rodriguez, DO [address] [place] [address] PCP - [facility] Medicine 07/07/18 Charbel Cosby [address] [place] [phone] Referring Orthopedics 07/18/22 Director Of Surgery Relationship Specialty Start Date End Date Charbel Rodriguez, DO [address] [place] [address] [address] - [facility] Medicine 07/07/18 Charbel Cosby [address] [place] [phone] Referring Orthopedics 07/18/22 Director Of Surgery Relationship Specialty Start Date End Date Charbel Rodriguez, DO [address] [place] [address] [address] - [facility] Medicine 07/07/18 Charbel Cosby [address] [place] [address] Referring Orthopedics 07/18/22 Director Of Surgery Relationship Specialty Start Date End Date Charbel Rodriguez, DO [address] [place] [address] [address] - [facility] Medicine 07/07/18 Charbel Cosby [address] [place] [address] Referring Orthopedics 07/18/22 Director Of Surgery Relationship Specialty Start Date End Date Charbel Rodriguez, DO [address] [place] [address] PCP - [facility] Medicine 07/07/18 Charbel Cosby [address] [place] [address] Referring Orthopedics 07/18/22 Director Of Surgery Relationship Specialty Start Date End Date Charbel Rodriguez, DO [address] [place] [phone] PCP - [facility] Medicine 07/07/18 Charbel Cosby [address] [place] [address] Referring Orthopedics 07/18/22 Director Of Surgery Relationship Specialty Start Date End Date Charbel Rodriguez, DO [address] [place] [phone] PCP - [facility] Medicine 07/07/18 Charbel Cosby [address] [place] [address] Referring Orthopedics 07/18/22 Director Of Surgery Relationship Specialty Start Date End Date Charbel Rodriguez, DO [address] [place] [address] PCP - [facility] Medicine 07/07/18 Charbel Cosby [address] [place] [address] Referring Orthopedics 07/18/22 Director Of Surgery Relationship Specialty Start Date End Date Charbel Rodriguez, DO [address] [place] [address] PCP - General Family Medicine 07/07/18 Charbel Cosby [address] [place] [address] Referring Orthopedics 07/18/22 Director Of Surgery Relationship Specialty Start Date End Date Charbel Rodriguez, DO [address] [place] [address] PCP - [facility] Medicine 07/07/18 Charbel Cosby [address] [place] [address] Referring Orthopedics 07/18/22 Director Of Surgery Relationship Specialty Start Date End Date Charbel Rodriguez, DO [address] [place] [address] PCP - [facility] 07/07/18 Charbel Cosby [address] [place] [address] Referring Orthopedics 07/18/22 Director Of Surgery Relationship Specialty Start Date End Date Charbel Rodriguez, DO [address] [place] [address] PCP - [facility] Medicine 07/07/18 Charbel Cosby [address] [place] [address] Referring Orthopedics 07/18/22 Director Of Surgery Relationship Specialty Start Date End Date Charbel Rodriguez, DO [address] [place] [address] PCP - [facility] Medicine 07/07/18 Charbel Cosby [address] [place] [address] Referring Orthopedics 07/18/22 Director Of Surgery Relationship Specialty Start Date End Date Charbel Rodriguez DO [address] [place] [address] PCP - [facility] 07/07/18 Charbel Cosby [address] [facility] [place] [place] [address] Referring Orthopedics 07/18/22 Director Of Surgery Relationship Specialty Start Date End Date Charbel Rodriguez DO [address] [place] [address] PCP - [facility] 07/07/18 Charbel Cosby [address] [place] [phone] Referring Orthopedics 07/18/22 Goals (unrecognized section and content) Goals may be documented in a n alternate sectionNo InformationNo InformationNo InformationNo InformationNo InformationNo InformationNo InformationNo InformationNo InformationNo InformationNo InformationNo InformationNo InformationNo InformationNo InformationNo InformationNo InformationNo InformationNo InformationNo InformationNo Information Source Comments (unrecognize d section and content) In the event this informatio n is protected by the Federal Confidentiality of Alcohol and Drug Abuse Patient Records regulations: The Federal rules restrict any use of the information to criminally investigate or prosecute any alcohol or drug abuse patient.[facility] HospitalIn the event this information is protected by the Federal Confidentiality of Alcohol and Drug Abuse Patient Records regulations: The Federal rules restrict any use of the information to criminally investigate or prosecute any alcohol or drug abuse patient.[facility] HospitalIn the event this information is protected by the Federal Confidentiality of Alcohol and Drug Abuse Patient Records regulations: The Federal rules restrict any use of the information to criminally investigate or prosecute any alcohol or drug abuse patient.[facility] HospitalIn the event this information is protected by the Federal Confidentiality of Alcohol and Drug Abuse Patient Records regulations: The Federal rules restrict any use of the information to criminally investigate or prosecute any alcohol or drug abuse patient.[facility] HospitalIn the event this information is protected by the Federal Confidentiality of Alcohol and Drug Abuse Patient Records regulations: The Federal rules restrict any use of the information to criminally investigate or prosecute any alcohol or drug abuse patient.[facility] HospitalIn the event this information is protected by the Federal Confidentiality of Alcohol and Drug Abuse Patient Records regulations: The Federal rules restrict any use of the information to criminally investigate or prosecute any alcohol or drug abuse patient.[facility] HospitalIn the event this information is protected by the Federal Confidentiality of Alcohol and Drug Abuse Patient Records regulations: The Federal rules restrict any use of the information to criminally investigate or prosecute any alcohol or drug abuse patient.[facility] HospitalIn the event this information is protected by the Federal Confidentiality of Alcohol and Drug Abuse Patient Records regulations: The Federal rules restrict any use of the information to criminally investigate or prosecute any alcohol or drug abuse patient.[facility] HospitalIn the event this information is protected by the Federal Confidentiality of Alcohol and Drug Abuse Patient Records regulations: The Federal rules restrict any use of the information to criminally investigate or prosecute any alcohol or drug abuse patient.[facility] HospitalIn the event this information is protected by the Federal Confidentiality of Alcohol and Drug Abuse Patient Records regulations: The Federal rules restrict any use of the information to criminally investigate or prosecute any alcohol or drug abuse patient.[facility] HospitalIn the event this information is protected by the Federal Confidentiality of Alcohol and Drug Abuse Patient Records regulations: The Federal rules restrict any use of the information to criminally investigate or prosecute any alcohol or drug abuse patient.[facility] HospitalIn the event this information is protected by the Federal Confidentiality of Alcohol and Drug Abuse Patient Records regulations: The Federal rules restrict any use of the information to criminally investigate or prosecute any alcohol or drug abuse patient.[facility] HospitalIn the event this information is protected by the Federal Confidentiality of Alcohol and Drug Abuse Patient Records regulations: The Federal rules restrict any use of the information to criminally investigate or prosecute any alcohol or drug abuse patient.[facility] HospitalIn the event this information is protected by the Federal Confidentiality of Alcohol and Drug Abuse Patient Records regulations: The Federal rules restrict any use of the information to criminally investigate or prosecute any alcohol or drug abuse patient.[facility] HospitalIn the event this information is protected by the Federal Confidentiality of Alcohol and Drug Abuse Patient Records regulations: The Federal rules restrict any use of the information to criminally investigate or prosecute any alcohol or drug abuse patient.[facility] HospitalIn the event this information is protected by the Federal Confidentiality of Alcohol and Drug Abuse Patient Records regulations: The Federal rules restrict any use of the information to criminally investigate or prosecute any alcohol or drug abuse patient.[facility] HospitalIn the event this information is protected by the Federal Confidentiality of Alcohol and Drug Abuse Patient Records regulations: The Federal rules restrict any use of the information to criminally investigate or prosecute any alcohol or drug abuse patient.[facility] HospitalIn the event this information is protected by the Federal Confidentiality of Alcohol and Drug Abuse Patient Records regulations: The Federal rules restrict any use of the information to criminally investigate or prosecute any alcohol or drug abuse patient.[facility] HospitalIn the event this information is protected by the Federal Confidentiality of Alcohol and Drug Abuse Patient Records regulations: The Federal rules restrict any use of the information to criminally investigate or prosecute any alcohol or drug abuse patient.[facility] HospitalIn the event this information is protected by the Federal Confidentiality of Alcohol and Drug Abuse Patient Records regulations: The Federal rules restrict any use of the information to criminally investigate or prosecute any alcohol or drug abuse patient.[facility] HospitalIn the event this information is protected by the Federal Confidentiality of Alcohol and Drug Abuse Patient Records regulations: The Federal rules restrict any use of the information to criminally investigate or prosecute any alcohol or drug abuse patient.[facility] Reason for Visit (unrecogniz ed section and content) Reason Comments Radio Gen RMP Specialty Diagnoses / Procedures Referred By Contac t Referred To Contact XR IMAGING Diagnoses Osteochondritis dissecans of right talus Procedures XR ANKLE GENERAL 3V AP/LAT/OBL RIGHT RADEX ANKLE COMPLETE MINIMUM 3 [place] [address] [place] [address] [place] [address] Referral ID Status Reason Start Date Expiration Date V isits Requested Visits Authorized [id number] Closed Auto-Generate d Referral 11/02/2022 11/30/2023 1 1 Reason Comments New Reason Comments Pre-Op Visit Reason Comments Results Preparations For Surgery Reason Onset Date Comments Refill Request 08/27/2022 Reason Comments Patient Question Reason Comments Post Op Wound Check Suture Removal Reason Comments post op right ankle swelling and pain Reason Comments Post Op Reason Comments Patient Update Reason Comments Patient Update Requested a letter Reason Comments Follow Up Reason Comments Return To Work Letter Reason Comments Electronic Communication PT order faxed today Reason Comments Radiology XR Referral ID Status Reason Start Date Expiration Date V isits Requested Visits Authorized [id number] Closed Auto-Generate d Referral 01/02/2023 01/31/2024 1 1 FOR RECORDS PERTAINING TO PATIENTS WHO ARE OR HAVE BEEN ENROLLED IN A CHEMICAL DEPENDENCY/SUBSTANCEABUSE PROGRAM, SOME INFORMATION MAY BE OMITTED. This clinical summary was aggregated from multiple sources. Caution should be exercised in using it in the provision of clinical care. This summary normalizes information from multiple sources, and as a consequence, information in this document may materially change the coding, format and clinical context of patient data. In addition, data may be omitted in some cases. CLINICAL DECISIONS SHOULD BE BASED ON THE PRIMARY CLINICAL RECORDS. [employer] provides no warranty or guarantee of the accuracy or completeness of information in this document.
[2024-03-16 14:04] LABS: Estimated Average Glucose 114 mg/dL; Glycohemoglobin A1C 5.6 % (4.5-6.2)
[2024-03-17 05:08] LABS: HCV Ab Non Reactive (Non Reactive)
== END 2024-03-16 11:41 | disposition home or self-care (01) ==
LOC: LAB 11:41
PROVIDERS: PCP Family Medicine; Visit Provider Obstetrics & Gynecology
DX: Z13.1 Encounter for screening for diabetes mellitus (principal); Z3A.33 33 weeks gestation of pregnancy
CPT/HCPCS: 36415; 83036; 86803

== ENCOUNTER 2024-03-31 21:17 | Outpatient (REF) | payer OTHER, SELFPAY ==
--- OUTSIDE RECORDS SUMMARY | 2024-03-31 21:24 | XMS_ITS | CCD ---
Author Organization [facility] Care Team Providers Care Field Mechanic/Site Lead Name Role Phone DO Charbel Rodriguez Primary Care Provider ANGELY Yee Emergency Provider Charbel Rodriguez DO Primary Care Provider [phone] Charbel Cosby Unavailable Charbel Rodriguez Unavailable TESSA SANCHEZ Admitting Unavailable TESSA SANCHEZ Attending Unavailable CHARBEL RODRIGUEZ Primary Care Unavailable Charbel Rodriguez DO Primary Care Provider Charbel Cosby Unavailable MICHAEL, DR BARGER Primary Care Unavailable ALBERTO, DR ADAME Admitting Unavailable HAY, DR ADAME Attending Unavailable ALBERTO, DR ADAME Consulting Unavailable MICHAEL, DR BARGER [...] Unavailable Charbel Rodriguez DO Primary Care Provider VISCI, SONIA A Attending Unavailable VISCI, SONIA A Attending Unavailable VISCI, SONIA A Attending Unavailable KIEPERTJOHNSON Attending Unavailable VISCI, SONIA A Attending Unavailable VISCI, SONIA A Referring Unavailable VISCI, SONIA A Referring Unavailable VISCI, SONIA A Attending Unavailable VISCI, SONIA A Referring Unavailable VISCI, SONIA A Attending Unavailable VISCI, SONIA A Attending Unavailable VISCI, SONIA A Referring Unavailable IDANIAJACK Attending Unavailable Allergies Allergy Classification Reported Allergen(s) Allergy Type Date of Onset Reaction(s) Facility (20 sources) Latex; Translations: [Latex] Propensity to adverse reactions 2 Rash, Rash, Blisters, rash,blisters [facility] (12 sources) Naproxen; Translations: [NAPROXEN] Drug Allergy 8 [facility] (14 sources) Naproxen; Translations: [Aleve] Drug Allergy 1 [facility] Repository (13 sources) Seasonal allergy Propensity to adverse reactions Unknown [facility] Other (13 sources) Tomato Products Propensity to adverse reactions stomach upset [facility] Other (1 source) natural latex rubber Drug allergy (disorder) 1 [facility] Repository (8 sources) Seasonale Drug allergy Unknown [facility] Other (8 sources) Tomatoes Drug allergy stomach upset [facility] Other (5 sources) Phentermine Drug Allergy chest pain/ elevated BP [facility] Other Medications Current Medications Medication Drug Class(es) Dates Sig (Normalized) Sig (Original) brompheniramine maleate 0.4 mg/ml / dextromethorphan hydrobromide 2 mg/ml / pseudoephedrine hydrochloride 6 mg/ml oral solution (5 sources) alpha-Adrenergic Agonist, Uncompetitive N-zadudf-E-aspartat e Receptor Antagonist, Sigma-1 Agonist Start: 12-07-19 take 10 mL by mouth every six hours Cabviqesh-Tuvrxrbj-GP 30-2-10 MG/5ML 10 mL Orally every 6 [...] by viral th every 6 hours as needed for pain [...] on above: Take 1 capsule by mo [facility] four times daily. cyclobenzaprine hydrochloride 5 mg [...] (BMI) 40.0-44.9, adult; Translations: [BMI 40.0-44.9, adult ([facility])] Onset: 08-14-2022 Chronic Other nutritional; endocrine; and [...] Test Name Value Interpretation Reference Range Facility [facility] 05-27-2023 CNPN Telephone (4CQ) EDITH WELLS ([id number]) 1995 F Date Time Provider Department 05/27/23 TESSA SANCHEZ 4CQ During your visit today, we recorded the following information about you: Glenis Gavin 05/27/2023 12:11 PM Signed Edith Wells is calling Tessa Sanchez MD today. Patient's therapist at [facility] is asking if she can continue PT but change it to 2 days on land and 0 days in water per week. Needs new order sent to [facility] in [place]. She did not have the fax number. [...] time off per provider's discretion. Patient will pick up attendant the note when ready. Call her to inform when she can pick it up. Call cell number below. May leave a message. No chief complaint on file. Patient has been identified by name and birthdate. Duration of symptoms: Person calling: self Call patient at: on cell and , it is OK to leave message [phone] (home) [phone] (cell) Was an appointment scheduled: No Closing statement: Results or non-symptom based questions: Thank you for calling [facility], your call will be returned within the next business day. Lizzette Yañez RN 05/27/2023 1:33 PM Signed I spoke with Edith and we talked at length. She will try speaking to her PCP about a work release as Dr. Sanchez, her surgeon, has retired. Lizzette Romeo RN Allergies As of Date: 05/27/2023 (No Known Allergies) Date Reviewed: 04/17/2023 Reviewed by: Pari Franco MA - Fully Assessed Reason for Visit: Question [7827] Prescriptions as of 05/27/2023 - etodolac (LODINE-XL) [...] Anemia [D64.9] 08/14/2022 Encounter Status:Closed by LIZZETTE ROMEO RN on 05/27/23 [facility] 04-17-2023 CNCO Letter Text Normal [facility] CNOVon 04-17-2023 CNOV Office Visit (ADRIANA ) EDITH WELLS ([id number]) 1995 F Date Time Provider Department 04/17/23 [...] and is of normal mood and affect. [facility] 07/02/2022 Gait Cycle: Normal Yes, Limp: none. [...] records. This note was partially generated using Confidex voice recognition system, and there may be [...] Order(s):CONSULT TO PHYSICAL THERAPY [9032] Order #: [id number]: 1 FUTURE Prescriptions as of 04/18/2023 - [...] Encounter Status:Closed by TESSA SANCHEZ on 04/18/23 [facility] CNOVon 03-13-2023 CNOV Office Visit (ORAVON ) EDITH WELLS ([id number]) 1995 F Date Time Provider Department 03/13/23 11:00 AM TESSA SANCHEZ ORAGNES During your visit today, [...] records. This note was partially generated using Confidex voice recognition system, and there may be [...] Encounter Status:Closed by TESSA SANCHEZ on 03/13/23 [facility] Shayy 02-28-2023 YAN Telephone (ORAVON) EDITH WELLS ([id number]) 1995 F Date Time Provider Department 02/28/23 TESSA SANCHEZ During your visit today, we recorded the following information about you: Margy Contreras Pss 02/28/2023 4:09 PM Signed Patient wants to get physical therapy at [facility] in [place]. Has been approved by [facility] and she can now schedule. Asking for recent therapy order from Dr Sanchez be faxed to [facility] in [place] at [phone]. Lizzette Romeo RN 03/01/2023 10:22 AM Signed Faxed today at 10:20am. Lizzette Romeo RN Allergies As of Date: 02/28/2023 (No Known Allergies) Date Reviewed: 01/02/2023 Reviewed by: Theresa Frederick MA - Fully Assessed Reason for Visit: Electronic Communication [170] Cmt: PT order faxed today Prescriptions as [...] Anemia [D64.9] 08/14/2022 Encounter Status:Closed by LIZZETTE ROMEO RN on 03/01/23 [facility] 01-10-2023 CNPN Telephone (ORAVON) EDITH WELLS ([id number]) 1995 F Date Time Provider Department 01/10/23 [...] back to the office to update CALL [phone] Autumn Clayton 01/10/2023 12:07 PM Signed Edith [...] calling: self Call patient at: at home [phone] (home) [phone] (cell) Was an appointment scheduled: No Closing statement: Results or non-symptom based questions: Thank you for calling [facility], your call will be returned within the next business day. Lizzette Romeo RN 01/11/2023 12:04 PM Signed Patient's note faxed today as requested Lizzette Romeo RN Nolberto Noguera 02/08/2023 4:15 PM Signed Patient calling in about papers she received in the mail. She does not know what they are or what she needs to do with them. Please call her at [phone]. Lizzette Romeo RN 02/11/2023 10:34 AM Signed I spoke with her. The papers she is talking about is the forms she and I went over together over the phone. She wanted copies of them so I mailed them to her. Lizzette Romeo RN Allergies As of Date: 01/10/2023 (No Known Allergies) Date Reviewed: 01/02/2023 Reviewed by: Theresa Frederick MA - Fully Assessed Reason for Visit: Return To Work Letter [3347] Prescriptions as of 02/11/2023 - etodolac (LODINE-XL) [...] Anemia [D64.9] 08/14/2022 Encounter Status:Closed by LIZZETTE ROMEO RN on 01/11/23 [facility] CNOVon 01-02-2023 CNOV Office Visit (ADRIANA ) EDITH WELLS ([id number]) 1995 F Date Time Provider Department 01/02/23 4:00 PM TESSA SANCHEZ During your visit today, we recorded the following information about you: Tessa Sanchez MD 01/02/2023 10:32 PM Signed Edith Wells returns today to [...] and is of normal mood and affect. [facility] 07/02/2022 Gait Cycle: Normal Yes, Limp: antalgic [...] records. This note was partially generated using Confidex voice recognition system, and there may be some incorrect words, spellings, and punctuation that were not noted in checking the note before saving. Carmelinaibmihai Attestation: By signing my name below, I, Pippa Moss, attest that this documentation has been prepared under the direction and in the presence of Tessa Sanchez MD. Electronically Signed: alan Alarcon, January 02, 2023 4:30 PM I agree with the Chief Complaint, ROS, and Past Histories independently gathered by the clinical application support and the remaining scribed note accurately describes my personal service to the patient. Tessa Sanchez M.D. 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 - cyclobenzaprine (FLEXERIL) 5 (more content not included)... Normal [facility] XR ANKLE 3V AP/LAT/OBL RTon 01-02-2023 XR [...] malalignment is identified. Joint spaces are maintained. Fitness And Wellness Coordinator: PSCB Transcribe Date/Time: Jan 02 2023 4:17P Dictated by : RC CIFUENTES MD This examination was interpreted and the report reviewed and electronically signed by: RC CIFUENTES MD on Jan 02 2023 4:18PM EST [id number] N Normal [facility] XR ANKLE GENERAL 3V AP/LAT/O BL RIGHTon 01-02-[address] [facility] CNCOon 12-21-20[address] [facility] CNPRosemary 12-21-2022 FRANSICON Telephone (ORAVON) EDITH WELLS ([id number]) 1995 F Date Time Provider Department 12/21/22 [...] Allergies) Date Reviewed: 11/14/2022 Reviewed by: Lizzette Romeo RN - Fully Assessed Reason for Visit: [...] Encounter Status:Closed by VINAY CORONA on 12/21/22 [facility] 12-19-2022 CNPN Telephone (ORAVON) EDITH WELLS ([id number]) 1995 F Date Time Provider Department 12/19/22 [...] that prevented her form having PT. CALL [phone] Vinay Corona RN 12/21/2022 5:35 PM Signed This RN called and spoke with patient. Letter sent via Talko she report she received it. Also discussed leaving printed office notes up at front office manager file for pick up attendant. She was grateful for the call. Vinay Corona RN BSN Allergies As of Date: 12/19/2022 (No Known Allergies) Date Reviewed: 11/14/2022 Reviewed by: Lizzette Romeo RN - Fully Assessed Reason for Visit: [...] Encounter Status:Closed by VINAY CORONA on 12/21/22 [facility] CNOVon 11-14-2022 CNOV Office Visit (ORAVON ) EDITH WELLS ([id number]) 1995 F Date Time Provider Department 11/14/22 [...] Allergies) Date Reviewed: 11/14/2022 Reviewed by: Lizzette Romeo RN - Fully Assessed Reason for Visit: [...] Status:Closed by TESSA SANCHEZ on 11/14/[address] [facility] EBV EARLY ANTIGEN (IgG)on EBV Early Antigen Ab, IgG <9.0 Normal 0.0-8.9 [facility] Comment on above: Result Comment: Nega tive < 9.0 Equivocal 9.0 - 10.9 Positive >10.9 Performed By: #### E BVEARL #### [facility] [address] [place] [address] Dr. Judah Phipps LU-POSADAS VIRUS (EBV) AB PROFILEon 11-14-2022 EBV Ab VCA, IgG 370.0 U/mL Critically high 0.0-17.9 [facility] Comment on above: Result Comment: Nega tive <18.0 Equivocal 18.0 - 21.9 Positive >21.9 Performed By: #### E BVPROF #### [facility] [address] [address] [address] Judah Phipps EBV Ab VCA, IgM <36.0 Normal 0.0-35.9 [facility] Comment on above: Result Comment: Nega tive <36.0 Equivocal 36.0 - 43.9 Positive >43.9 Performed By: #### E BVPROF #### [facility] [address] [address] [address] Judah Phipps EBV Nuclear Antigen Ab, IgG 224.0 U/mL Critically high 0.0-17.9 [facility] Comment on above: Result Comment: Nega tive <18.0 Equivocal 18.0 - 21.9 Positive >21.9 Performed By: #### E BVPROF #### [facility] [address] [address] [address] Judah Phipps Interpretation: Comment Normal [facility] Comment on above: Result Comment: EBV Interpretation [...] Performed By: #### E BVPROF #### [facility] [address] [place] [address] Dr. Judah Phipps XR ANKLE 3V AP/LAT/OBL [...] dislocation. IMPRESSION: Expected postoperative findings as described. Fitness And Wellness Coordinator: ANYA Transcribe Date/Time: Nov 14 2022 6:35P Dictated by : TINA VEGA MD This examination was interpreted and the report reviewed and electronically signed by: TINA VEGA MD on Nov 15 2022 6:27AM EST [id number] N Normal [facility] XR ANKLE GENERAL 3V AP/LAT/O BL RIGHTon 11-14-[address] [facility] AMYLASEon 11-13-2022 Amylase [Catalytic activity/Vol] 42 U/L Normal 25-115 [facility] Comment on above: Performed By: #### L IPA, CMP, SYEDA, PREGQNT #### [facility] [address] [address] [address] Judah Phipps CBC AUTO DIFFon 11-13-2022 BASO # 0.0 103/ul Normal 0.0-0.1 [facility] Comment on above: Performed By: #### L IPA, CMP, SYEDA, PREGQNT #### [facility] [address] [address] [address] Judah Phipps Basophils/100 WBC (Bld) 0.3 % Normal 0.2-2.0 [facility] Comment on above: Performed By: #### L IPA, CMP, SYEDA, PREGQNT #### [facility] [address] [address] [address] Judah Phipps EO # 0.5 103/ul Normal 0.0-0.7 [facility] Comment on above: Performed By: #### L IPA, CMP, SYEDA, PREGQNT #### [facility] [address] [place] [address] Dr. Judah Phipps Eosinophils/100 WBC (Bld) 4.0 % Normal 0.9-7.0 [facility] Comment on above: Performed By: #### L IPA, CMP, SYEDA, PREGQNT #### [facility] [address] [place] [address] Dr. Judah Phipps Erythrocyte distribution width (RBC) [Ratio] 13.2 % Normal 11.0-15.0 [facility] Comment on above: Performed By: #### L IPA, CMP, SYEDA, PREGQNT #### [facility] [address] [place] [address] Dr. Judah Phipps Hematocrit (Bld) [Volume fraction] 37.2 % Normal 36.0-48.0 [facility] Comment on above: Performed By: #### L IPA, CMP, SYEDA, PREGQNT #### [facility] [address] [place] [address] Dr. Judah Phipps Hemoglobin (Bld) [Mass/Vol] 12.5 g/dL Normal 12.0-16.0 [facility] Comment on above: Performed By: #### L IPA, CMP, SYEDA, PREGQNT #### [facility] [address] [place] [address] Dr. Judah Phipps IG # 0.04 10e3/ul Critically high 0.00-0.03 [facility] Comment on above: Performed By: #### L IPA, CMP, SYEDA, PREGQNT #### [facility] [address] [place] [address] Dr. Judah Phipps IG % 0.3 % Normal 0.0-0.5 [facility] Comment on above: Performed By: #### L IPA, CMP, SYEDA, PREGQNT #### [facility] [address] [place] [address] Dr. Judah Phipps LYMPH # 4.8 103/ul Critically high 1.2-3.8 [facility] Comment on above: Performed By: #### L IPA, CMP, SYEDA, PREGQNT #### [facility] [address] [place] [address] Dr. Judah Phipps Lymphocytes/100 WBC (Bld) 39.9 % Normal 20.5-60.0 [facility] Comment on above: Performed By: #### L IPA, CMP, SYEDA, PREGQNT #### [facility] [address] [place] [address] Dr. Judah Phipps MANUAL DIFF REQ NO Normal [facility] Comment on above: Performed By: #### L IPA, CMP, SYEDA, PREGQNT #### [facility] [address] [place] [address] Dr. Judah Phipps MCH (RBC) [Entitic mass] 30.5 pg Normal 26.7-34.0 [facility] Comment on above: Performed By: #### L IPA, CMP, SYEDA, PREGQNT #### [facility] [address] [place] [address] Dr. Judah Phipps MCHC (RBC) [Mass/Vol] 33.6 g/dL Normal 29.9-35.2 [facility] Comment on above: Performed By: #### L IPA, CMP, SYEDA, PREGQNT #### [facility] [address] [place] [address] Dr. Judah Phipps MCV (RBC) [Entitic vol] 90.7 fL Normal 81.0-99.0 [facility] Comment on above: Performed By: #### L IPA, CMP, SYEDA, PREGQNT #### [facility] [address] [place] [address] Dr. Judah Phipps MONO # 0.7 103/ul Normal 0.3-0.8 [facility] Comment on above: Performed By: #### L IPA, CMP, SYEDA, PREGQNT #### [facility] [address] [place] [address] Dr. Judah Phipps Monocytes/100 WBC (Bld) 6.1 % Normal 1.7-12.0 [facility] Comment on above: Performed By: #### L IPA, CMP, SYEDA, PREGQNT #### [facility] [address] [address] [address] Judah Phipps NEUT # 5.9 103/ul Normal 1.4-6.5 [facility] Comment on above: Performed By: #### L IPA, CMP, SYEDA, PREGQNT #### [facility] [address] [place] [address] Dr. Judah Phipps Neutrophils/100 WBC (Bld) 49.4 % Normal 43.0-75.0 [facility] Comment on above: Performed By: #### L IPA, CMP, SYEDA, PREGQNT #### [facility] [address] [place] [address] Dr. Judah Phipps Platelet mean volume (Bld) [Entitic vol] 9.2 fL Critically low 9.5-13.5 [facility] Comment on above: Performed By: #### L IPA, CMP, SYEDA, PREGQNT #### [facility] [address] [place] [address] Dr. Judah Phipps PLT 408 103/ul Normal 150-450 [facility] Comment on above: Performed By: #### L IPA, CMP, SYEDA, PREGQNT #### [facility] [address] [place] [address] Dr. Judah Phipps RBC 4.10 106/ul Critically low 4.20-5.40 [facility] Comment on above: Performed By: #### L IPA, CMP, SYEDA, PREGQNT #### [facility] [address] [place] [address] Dr. Judah Phipps WBC 12.0 103/ul Critically high 4.0-11.0 [facility] Comment on above: Performed By: #### L IPA, CMP, SYEDA, PREGQNT #### [facility] [address] [place] [address] Dr. Judah Phipps LIPASEon 11-13-2022 Lipase [Catalytic activity/Vol] 161.0 U/L Normal 73.0-393.0 [facility] Comment on above: Performed By: #### L IPA, CMP, SYEDA, PREGQNT #### [facility] [address] [address] [address] Judah Phipps PREG QUANT HCGon 11-13-2022 HCG QUANT <1 Normal [facility] Comment on above: Performed By: #### L IPA, CMP, SYEDA, PREGQNT #### [facility] [address] [address] [address] Judah Phipps HCG RANGE SEE BELOW Normal [facility] Comment on above: Result Comment: 5-50 0.2-1 WEEK 50-500 1-2 WEEKS 100-5,000 2-3 WEEKS 500-10,000 3-4 WEEKS 1,000-50,000 4-5 WEEKS 10,000-100,000 5-6 WEEKS 15,000-200,000 6-8 WEEKS 10,000-100,000 2-3 MONTHS Performed By: #### L IPA, CMP, SYEDA, PREGQNT #### [facility] [address] [place] [address] Dr. Judah Phipps PROF 14(COMP METB)on 023 Albumin [Mass/Vol] 3.6 g/dL Normal 3.4-5.0 [facility] Comment on above: Performed By: #### L IPA, CMP, SYEDA, PREGQNT #### [facility] [address] [address] [address] Judah Phipps Albumin/Globulin [Mass ratio] 1.1 {ratio} Normal [facility] Comment on above: Performed By: #### L IPA, CMP, SYEDA, PREGQNT #### [facility] [address] [address] [address] Judah Phipps ALP [Catalytic activity/Vol] 64 U/L Normal 46-116 [facility] Comment on above: Performed By: #### L IPA, CMP, SYEDA, PREGQNT #### [facility] [address] [address] [address] Judah Phipps ALT [Catalytic activity/Vol] 9 U/L Critically low 14-59 [facility] Comment on above: Performed By: #### L IPA, CMP, SYEDA, PREGQNT #### [facility] [address] [address] [address] Judah Phipps Anion gap [Moles/Vol] 11.3 mmol/L Normal [facility] Comment on above: Performed By: #### L IPA, CMP, SYEDA, PREGQNT #### [facility] [address] [address] [address] Judah Phipps AST [Catalytic activity/Vol] 10 U/L Critically low 15-37 [facility] Comment on above: Performed By: #### L IPA, CMP, SYEDA, PREGQNT #### [facility] [address] [address] [address] Judah Phipps Bilirubin [Mass/Vol] 0.2 mg/dL Normal 0.2-1.0 [facility] Comment on above: Performed By: #### L IPA, CMP, SYEDA, PREGQNT #### [facility] [address] [address] [address] Judah Phipps Calcium [Mass/Vol] 8.9 mg/dL Normal 8.5-10.1 [facility] Comment on above: Performed By: #### L IPA, CMP, SYEDA, PREGQNT #### [facility] [address] [address] [address] Judah Phipps Chloride [Moles/Vol] 102 mmol/L Normal 98-107 [facility] Comment on above: Performed By: #### L IPA, CMP, SYEDA, PREGQNT #### [facility] [address] [address] [address] Judah Phipps CO2 [Moles/Vol] 28.5 mmol/L Normal 21.0-32.0 [facility] Comment on above: Performed By: #### L IPA, CMP, SYEDA, PREGQNT #### [facility] [address] [address] [address] Judah Phipps Creatinine [Mass/Vol] 0.65 mg/dL Normal 0.55-1.02 [facility] Comment on above: Performed By: #### L IPA, CMP, SYEDA, PREGQNT #### [facility] [address] [address] [address] Judah Phipps EGFR-AF ERITREAN >60 Normal >=60 [facility] Comment on above: Performed By: #### L IPA, CMP, SYEDA, PREGQNT #### [facility] [address] [address] [address] Judah Phipps EGFR-NON AF ERITREAN >60 Normal >=60 [facility] Comment on above: Performed By: #### L IPA, CMP, SYEDA, PREGQNT #### [facility] [address] [place] [address] Dr. Judah Phipps Globulin (S) [Mass/Vol] 3.4 g/dL Normal [facility] Comment on above: Performed By: #### L IPA, CMP, SYEDA, PREGQNT #### [facility] [address] [place] [address] Dr. Judah Phipps Glucose [Mass/Vol] 100 mg/dL Normal 74-106 [facility] Comment on above: Performed By: #### L IPA, CMP, SYEDA, PREGQNT #### [facility] [address] [address] [address] Judah Phipps Potassium [Moles/Vol] 3.8 mmol/L Normal 3.5-5.1 [facility] Comment on above: Performed By: #### L IPA, CMP, SYEDA, PREGQNT #### [facility] [address] [place] [address] Dr. Judah Phipps Protein [Mass/Vol] 7.0 g/dL Normal 6.4-8.2 [facility] Comment on above: Performed By: #### L IPA, CMP, SYEDA, PREGQNT #### [facility] [address] [place] [address] Dr. Judah Phipps Sodium [Moles/Vol] 138 mmol/L Normal 136-145 [facility] Comment on above: Performed By: #### L IPA, CMP, SYEDA, PREGQNT #### [facility] [address] [place] [address] Dr. Judah Phipps Urea nitrogen [Mass/Vol] 15.0 mg/dL Normal 7.0-18.0 [facility] Comment on above: Performed By: #### L IPA, CMP, SYEDA, PREGQNT #### [facility] [address] [place] [address] Dr. Judah Phipps Urea nitrogen/Creatinine [Mass ratio] 23.1 mg/mg Normal [facility] Comment on above: Performed By: #### L IPA, CMP, SYEDA, PREGQNT #### [facility] [address] [place] [address] Dr. Judah Phipps RESPIRATORY PANEL PLUSon Adenovirus Not detected Normal NOT DETECTED The [facility] Comment on above: Performed By: #### R SPLUS #### [facility] [address] [place] [address] Dr. Judah Dick. Parapertusis Not detected Normal NOT DETECTED The [facility] Comment on above: Performed By: #### R SPLUS #### [facility] [address] [place] [address] Dr. Judah Dick. Pertussis Not detected Normal NOT DETECTED The [facility] Comment on above: Performed By: #### R SPLUS #### [facility] [address] [place] [address] Dr. Judah Phipps Chlamydia Pneumoniae Not detected Normal NOT DETECTED [facility] Comment on above: Performed By: #### R SPLUS #### [facility] [address] [place] [address] Dr. Judah Phipps Coronavirus 229E Not detected Normal NOT DETECTED [facility] Comment on above: Performed By: #### R SPLUS #### [facility] [address] [place] [address] Dr. Judah Phipps Coronavirus HKU1 Not detected Normal NOT DETECTED [facility] Comment on above: Performed By: #### R SPLUS #### [facility] [address] [place] [address] Dr. Judah Phipps Coronavirus NL63 Not detected Normal NOT DETECTED [facility] Comment on above: Performed By: #### R SPLUS #### [facility] [address] [place] [address] Dr. Judah Phipps Coronavirus OC43 Not detected Normal NOT DETECTED [facility] Comment on above: Performed By: #### R SPLUS #### [facility] [address] [place] [address] Dr. Judah Phipps Influenza A H1 2009 Not detected Normal NOT DETECTED [facility] Comment on above: Performed By: #### R SPLUS #### [facility] [address] [address] [address] Judah Phipps Influenza A H3 Not detected Normal NOT DETECTED The [facility] Comment on above: Performed By: #### R SPLUS #### [facility] [address] [place] [address] Dr. Judah Phipps Influenza B Not detected Normal NOT DETECTED The [facility] Comment on above: Performed By: #### R SPLUS #### [facility] [address] [place] [address] Dr. Judah Phipps Metapneumovirus Not detected Normal NOT DETECTED The [facility] Comment on above: Performed By: #### R SPLUS #### [facility] [address] [place] [address] Dr. Judah Phipps Mycoplas. Pneumoniae Not detected Normal NOT DETECTED [facility] Comment on above: Performed By: #### R SPLUS #### [facility] [address] [place] [address] Dr. Judah Phipps Parainfluenza 1 Not detected Normal NOT DETECTED [facility] Comment on above: Performed By: #### R SPLUS #### [facility] [address] [place] [address] Dr. Judah Phipps Parainfluenza 2 Not detected Normal NOT DETECTED [facility] Comment on above: Performed By: #### R SPLUS #### [facility] [address] [place] [address] Dr. Judah Phipps Parainfluenza 3 Not detected Normal NOT DETECTED [facility] Comment on above: Performed By: #### R SPLUS #### [facility] [address] [place] [address] Dr. Judah Phipps Parainfluenza 4 Not detected Normal NOT DETECTED [facility] Comment on above: Performed By: #### R SPLUS #### [facility] [address] [place] [address] Dr. Judah Phipps Rhino/Enterovirus Not detected Normal NOT DETECTED [facility] Comment on above: Performed By: #### R SPLUS #### [facility] [address] [place] [address] Dr. Judah Phipps RP2 Header 1 RESPIRATORY PANEL: VIRUSES Normal [facility] Comment on above: Performed By: #### R SPLUS #### [facility] [address] [place] [address] Dr. Judah Phipps RP2 Header 2 RESPIRATORY PANEL: BACTERIA Normal [facility] Comment on above: Performed By: #### R SPLUS #### [facility] [address] [place] [address] Dr. Judah Phipps RSV Not detected Normal NOT DETECTED The [facility] Comment on above: Performed By: #### R SPLUS #### [facility] [address] [place] [address] Dr. Judah Phipps SARS-CoV-2 (COVID-19) RNA HAROLDO+probe Ql (Unsp spec) Not detected Normal NOT DETECTED [facility] Comment on above: Performed By: #### R SPLUS #### [facility] [address] [place] [address] Dr. Judah Prince 10-10-2022 CNOV Office Visit (ADRIANA ) EDITH WELLS ([id number]) 1995 F Date Time Provider Department 10/10/22 [...] Allergies) Date Reviewed: 10/10/2022 Reviewed by: Lizzette Romeo RN - Fully Assessed Reason for Visit: [...] Encounter Status:Closed by TESSA SANCHEZ on 10/10/22 [facility] Telephone (ORAVON) EDITH WELLS ([id number]) 1995 F Date Time Provider Department 09/26/22 TESSA SANCHEZ ORAGNES During your visit today, we recorded the following information about you: Rita Nitin [facility] 09/26/2022 11:18 AM Signed Patient requesting to speak with provider or staff in regards to right leg pain. She is having pain from her toes up to her knee. Her right ankle surgery was 08/28/22 and questions if pain is normal? Patient is to start therapy today at 6 pm. Patient requesting a return call through #[phone] or #[phone]. The second number is her boyfriends line, Elias. Patient gives okay to leave message with Elias if needed. Please advise. Lizzette Romeo RN 09/28/2022 2:23 PM Signed I spoke with Kathie on 09/26/22. Lizzette Romeo RN Allergies As of Date: 09/26/2022 (No Known Allergies) Date Reviewed: 09/12/2022 Reviewed by: Lizzette Romeo RN - Fully Assessed Reason for Visit: Patient Question [5847] Prescriptions as of 09/28/2022 - predniSONE (DELTASONE) [...] Anemia [D64.9] 08/14/2022 Encounter Status:Closed by LIZZETTE ROMEO RN on 09/28/22 [facility] Suresh 09-12-2022 CNOV Office Visit (ORAVON ) EDITH WELLS ([id number]) 1995 F Date Time Provider Department 09/12/22 [...] Allergies) Date Reviewed: 09/12/2022 Reviewed by: Lizzette Romeo RN - Fully Assessed Reason for Visit: Post Op [174] Wound Check [133] Suture Removal [105] 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 Alfred Campo Cast Beeper: [id number] Allergies As of Date: 09/12/2022 (No Known Allergies) Date Reviewed: 09/03/2022 Reviewed by: Lizzette Romeo RN - Fully Assessed Primary Visit Diagnosis:Osteochondr [...] Encounter Status:Closed by ALFRED KEARNS on 09/12/22 [facility] 09-03-2022 [facility] Telephone (ORAVON) EDITH WELLS ([id number]) 1995 F Date Time Provider Department 09/03/22 TESSA SANCHEZ During your visit today, we recorded the following information about you: Amparo Coyle RN 09/03/2022 12:26 PM Signed The pt [...] is not until 09/12. Please advise. Lizzette Romeo RN 09/04/2022 11:47 AM Addendum I spoke [...] change and check of her incisions. Lizzette Romeo RN Allergies As of Date: 09/03/2022 (No Known Allergies) Date Reviewed: 09/03/2022 Reviewed by: Lizzette Romeo RN - Fully Assessed Reason for Visit: [...] Anemia [D64.9] 08/14/2022 Encounter Status:Closed by AMPARO COYLE RN on 09/14/22 [facility] EDITH WELLS ([id number]) 1995 F Date Time Provider Department 09/02/22 EYAD SAMUELS During your visit today, we recorded the following information about you: Eyad Samuels MD 09/02/2022 5:38 PM Signed Patient called [...] plan and all questions were answered. Kristina Samuels MD Orthopaedic Surgery, PGY-3 Allergies As of Date: 09/02/2022 (No Known Allergies) Date Reviewed: 08/28/2022 Reviewed by: Milana Stanford RN - Fully Assessed Reason for Visit: Patient Question [1965] Prescriptions as of 09/02/2022 - acetaminophen (TYLENOL) [...] Anemia [D64.9] 08/14/2022 Encounter Status:Closed by EYAD SAMUELS on 09/02/22 [facility] EDITH WELLS ([id number]) 1995 F Date Time Provider Department 08/29/22 3:45 PM NURSE ORTH [facility] KATHRYN WRIGHT During your visit today, we recorded the following information about you: Lizzette Romeo RN 09/03/2022 8:14 AM Signed POD #1 [...] Qureshi was the physician present today. Lizzette Romeo RN Allergies As of Date: 08/29/2022 (No [...] Anemia [D64.9] 08/14/2022 Encounter Status:Closed by LIZZETTE ROMEO RN on 09/03/22 [facility] CNOVon 08-29-2022 CNOV Office Visit (ORAVON ) EDITH WELLS ([id number]) 1995 F Date Time Provider Department 08/29/22 3:00 PM CAST TECH AGNES WRIGHT During your visit today, we recorded the following information about you: Alfred Campo Cast 08/29/2022 3:44 PM Signed PT ASSESSMENT - CASTING ROOM Edith presents for Application of cast. Applied short cast: to Right leg non-weight bearing Patient has been instructed in Care of cast.. Alfred Campo Cast Beeper: [phone] Allergies As of Date: 08/29/2022 (No Known [...] Encounter Status:Closed by ALFRED KEARNS on 08/29/22 [facility] ANES POSTPROC EVALon 022 ANES POSTPROC EVAL HNO ID: [id number] Author: Mike Alcantar MD Service: Anesthesiology Author Type: Anesthesiologist Type: Anesthesia Postprocedure Evaluation Filed: 08/28/2022 1:05 PM Note Text: POST ANESTHESIA EVALUATION NOTE : 1995 Procedure Summary Date: 08/28/22 Room / Location: [address] Anesthesia Start: 1029 Anesthesia Stop: 1149 [...] August 28, 2022 TIME: 1:04 PM CSN: [id number] [facility] ANES PRE-OPon 08-28-2022 ANES PRE-OP HNO ID: [id number] Author: Mike Alcantar MD Service: Anesthesiology Author Type: Anesthesiologist Type: Anesthesia Preprocedure Evaluation Filed: 08/28/2022 9:33 AM Note Text: ANESTHESIOLOGY DAY OF SURGERY NOTE : 1995 Procedure Information Date/Time: 08/28/22 1000 Procedure: ARTHROSCOPY ANKLE EXCISION 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) Location: [facility] Surgeons: Tessa Sanchez MD Estimated body mass [...] and consent discussed: yes. Patient / Responsible Democrat agrees to proceed: yes Patient / Surrogate agrees to blood products: blood products not planned Significant changes in the patient condition since the History and Physical, not otherwise documented in primary service progress note: no. Potential Anesthesia issues that may suggest increased risk of complications or contraindication to planned procedure: none. Vitals Value Taken Time BP 144/77 08/28/22 0930 Pulse 59 08/28/22 09 Resp 16 08/28/22 0930 Temp 36.4 ?C (97.5 ?F) 08/28/22 09 [...] August 28, 2022 TIME: 9:32 AM CSN: [id number] [facility] OPERATIVE NOon 08-28-2022 OPERATIVE NO HNO ID: [id number] Author: Tessa Sanchez MD Service: Orthopaedic Surgery Author Type: Physician Type: Operative Report Filed: 08/28/2022 1:09 PM Note Text: OPERATIVE REPORT LOG ID: [id number] Surgery Date: 08/28/2022 Incision/Procedure Start Time: 11:01 AM Incision Close/Procedure End Time: 11:32 AM Procedure Performed: Procedure(s) (LRB): ARTHROSCOPY ANKLE EXCISION OSTEOCHONDRAL DEFECT MEDIAL TALUS Microfracture of talus Synovectomy Surgeon monitored fluoroscopy Surgeon(s)/Procedural ist(s) and Photo Checker And Assembler(s): Surgeon(s) and Role: * Tessa Sanchez MD - Primary Physician Photo Checker And Assembler: Mercedes Gale PA-C, was essential in patient [...] August 28, 2022 TIME: 1:04 PM PHONE: [phone] Normal [facility] CBC panel Auto (Bld)on 08-24 Erythrocyte distribution width (RBC) [Ratio] 13.3 % Normal 11.5-15.0 [facility] Comment on above: Order Comment: Speci men Type: BLOOD SPECIMENOrdering Facility: [facility] Address: [address] [place] [phone] Performed By: #### 5 8410-2 ####[facility] LABCLIA [id number] [place] [address] Hematocrit (Bld) [Volume fraction] 37.6 % Normal 36.0-46.0 [facility] Comment on above: Order Comment: Speci men Type: BLOOD SPECIMENOrdering Facility: [facility] Address: [address] [place] [address] Performed By: #### 5 8410-2 ####[facility] LABCLIA [id number] [place] [address] Hemoglobin (Bld) [Mass/Vol] 12.4 g/dL Normal 11.5-15.5 [facility] Comment on above: Order Comment: Speci men Type: BLOOD SPECIMENOrdering Facility: [facility] Address: [address] [place] [address] Performed By: #### 5 8410-2 ####[facility] LABIA [id number] [place] [address] MCH (RBC) [Entitic mass] 30.4 pg Normal 26.0-34.0 [facility] Comment on above: Order Comment: Speci men Type: BLOOD SPECIMENOrdering Facility: [facility] Address: [address] [place] [address] Performed By: #### 5 8410-2 ####[facility] LABCLIA [id number] [place] [address] MCHC (RBC) [Mass/Vol] 33.0 g/dL Normal 30.5-36.0 [facility] Comment on above: Order Comment: Speci men Type: BLOOD SPECIMENOrdering Facility: [facility] Address: [address] [place] [address] Performed By: #### 5 8410-2 ####[facility] LABIA [id number] [place] [address] MCV (RBC) [Entitic vol] 92.2 fL Normal 80.0-100.0 [facility] Comment on above: Order Comment: Speci men Type: BLOOD SPECIMENOrdering Facility: [facility] Address: [address] [place] [address] Performed By: #### 5 8410-2 ####[facility] LABIA [id number] [place] [address] Nucleated RBC (Bld) [#/Vol] 10*3/uL Normal <0.01 [facility] Comment on above: Order Comment: Speci men Type: BLOOD SPECIMENOrdering Facility: [facility] Address: [address] [place] [address] Performed By: #### 5 8410-2 ####[facility] LABIA [id number] [place] [address] Platelet mean volume (Bld) [Entitic vol] 9.3 fL Normal 9.0-12.7 [facility] Comment on above: Order Comment: Speci men Type: BLOOD SPECIMENOrdering Facility: [facility] Address: [address] [place] [address] Performed By: #### 5 8410-2 ####[facility] LABIA [id number] [place] [address] Platelets (Bld) [#/Vol] 386 10*3/uL Normal 150-400 [facility] Comment on above: Order Comment: Speci men Type: BLOOD SPECIMENOrdering Facility: [facility] Address: [address] [place], [place] [id number] Performed By: #### 5 8410-2 ####[facility] LABIA [id number] [place] [address] RBC (Bld) [#/Vol] 4.08 10*6/uL Normal 3.90-5.20 [facility] Comment on above: Order Comment: Speci men Type: BLOOD SPECIMENOrdering Facility: [facility] Address: [address] [place], [place] [id number] Performed By: #### 5 8410-2 ####[facility] LABCLIA [id number] [place] [address] WBC (Bld) [#/Vol] 8.69 10*3/uL Normal 3.70-11.00 [facility] Comment on above: Order Comment: Speci men Type: BLOOD SPECIMENOrdering Facility: [facility] Address: [address] [place] [phone] Performed By: #### 5 8410-2 ####[facility] LABCLIA [id number] [place] [address] Erythrocyte distribution width (RBC) [Ratio] 13.3 % 11.5 - 15.0 % [facility] Hematocrit (Bld) [Volume fraction] 37.6 % 36.0 - 46.0 % [facility] Hemoglobin (Bld) [Mass/Vol] 12.4 g/dL 11.5 - 15.5 g/dL [facility] MCH (RBC) [Entitic mass] 30.4 pg 26.0 - 34.[address] [facility] MCHC (RBC) [Mass/Vol] 33.0 g/dL 30.5 - 36.0 g/dL [facility] MCV (RBC) [Entitic vol] 92.2 fL 80.0 - 100.[address] [facility] Nucleated RBC (Bld) [#/Vol] <0.01 k/uL [facility] Platelet mean volume (Bld) [Entitic vol] 9.3 fL 9.0 - 12.[address] [facility] Platelets (Bld) [#/Vol] 386 10*3/uL 150 - 400 k/uL [facility] RBC (Bld) [#/Vol] 4.08 10*6/uL 3.90 - 5.2 0 m/uL [facility] WBC (Bld) [#/Vol] 8.69 10*3/uL 3.70 - 11. 00 k/uL [facility] Basic metabolic 2000 panelon 08-15-2022 Anion gap [Moles/Vol] 8 mmol/L Low 9-18 [facility] Comment on above: Order Comment: Speci men Type: BLOOD SPECIMENOrdering Facility: [facility] Address: [address] [address] Performed By: #### 2 4321-2 ####[facility] LABCLIA [id number] [place] [address] Calcium [Mass/Vol] 9.4 mg/dL Normal 8.5-10.2 [facility] Comment on above: Order Comment: Speci men Type: BLOOD SPECIMENOrdering Facility: [facility] Address: [address] [place] [address] Performed By: #### 2 4321-2 ####[facility] LABCLIA [id number] [place] [address] Chloride [Moles/Vol] 104 mmol/L Normal 97-105 [facility] Comment on above: Order Comment: Speci men Type: BLOOD SPECIMENOrdering Facility: [facility] Address: [address] [place] [address] Performed By: #### 2 4321-2 ####[facility] LABCLIA [id number] [place] [address] CO2 [Moles/Vol] 25 mmol/L Normal 22-30 [facility] Comment on above: Order Comment: Speci men Type: BLOOD SPECIMENOrdering Facility: [facility] Address: [address] [place] [address] Performed By: #### 2 4321-2 ####[facility] LABCLIA [id number] [place] [address] Creatinine [Mass/Vol] 0.60 mg/dL Normal 0.58-0.96 [facility] Comment on above: Order Comment: Speci men Type: BLOOD SPECIMENOrdering Facility: [facility] Address: [address] [place] [address] Performed By: #### 2 4321-2 ####[facility] LABCLIA [id number] [place] [address] ESTIMATED GLOMERULAR FILTRATION RATE 126 mL/min/1.73m??? Normal >=60 [facility] Comment on above: Order Comment: Getachew hamilton Type: BLOOD SPECIMENOrdering Facility: [facility] Address: [address] [id number] Result Comment: Brandy mated Glomerular Filtration Rate [...] actual GFR. Performed By: #### 2 4321-2 ####[facility] LABIA [id number] [place] [address] Glucose [Mass/Vol] 109 mg/dL High 74-99 [facility] Comment on above: Order Comment: Getachew hamilton Type: BLOOD SPECIMENOrdering Facility: [facility] Address: [address] [id number] Result Comment: The [place] [employer] (ADA) provides guidance for cutoff [...] Standards of Medical Care in Diabetes 2016, [place] [employer]. Diabetes Care. 2016.39(Suppl 1). Performed By: #### 2 4321-2 ####[facility] LABIA [id number] [place] [address] Potassium [Moles/Vol] 3.8 mmol/L Normal 3.7-5.1 [facility] Comment on above: Order Comment: Getachew hamilton Type: BLOOD SPECIMENOrdering Facility: [facility] Address: [address] [address] Performed By: #### 2 4321-2 ####[facility] LABCLIA [id number] [place] [address] Sodium [Moles/Vol] 137 mmol/L Normal 136-144 [facility] Comment on above: Order Comment: Speci men Type: BLOOD SPECIMENOrdering Facility: [facility] Address: [address] [place] [address] Performed By: #### 2 4321-2 ####[facility] LABCLIA [id number] [place] [address] Urea nitrogen [Mass/Vol] 20 mg/dL Normal 7-21 [facility] Comment on above: Order Comment: Speci men Type: BLOOD SPECIMENOrdering Facility: [facility] Address: [address] [place] [address] Performed By: #### 2 4321-2 ####[facility] LABCLIA [id number] [place] [address] CBC panel Auto (Bld)on 08-15 Erythrocyte distribution width (RBC) [Ratio] 13.5 % Normal 11.5-15.0 [facility] Comment on above: Order Comment: Speci men Type: BLOOD SPECIMENOrdering Facility: [facility] Address: [address] [place] [address] Performed By: #### 5 8410-2 ####[facility] LABCLIA [id number] [place] [address] Hematocrit (Bld) [Volume fraction] 39.9 % Normal 36.0-46.0 [facility] Comment on above: Order Comment: Speci men Type: BLOOD SPECIMENOrdering Facility: [facility] Address: [address] [place] [address] Performed By: #### 5 8410-2 ####[facility] LABCLIA [id number] [place] [address] Hemoglobin (Bld) [Mass/Vol] 13.4 g/dL Normal 11.5-15.5 [facility] Comment on above: Order Comment: Speci men Type: BLOOD SPECIMENOrdering Facility: [facility] Address: [address] [place] [address] Performed By: #### 5 8410-2 ####[facility] LABCLIA [id number] [place] [address] MCH (RBC) [Entitic mass] 30.7 pg Normal 26.0-34.0 [facility] Comment on above: Order Comment: Speci men Type: BLOOD SPECIMENOrdering Facility: [facility] Address: [address] [place] [address] Performed By: #### 5 8410-2 ####[facility] LABCLIA [id number] [place] [address] MCHC (RBC) [Mass/Vol] 33.6 g/dL Normal 30.5-36.0 [facility] Comment on above: Order Comment: Speci men Type: BLOOD SPECIMENOrdering Facility: [facility] Address: [address] [place] [address] Performed By: #### 5 8410-2 ####[facility] LABCLIA [id number] [place] [address] MCV (RBC) [Entitic vol] 91.5 fL Normal 80.0-100.0 [facility] Comment on above: Order Comment: Speci men Type: BLOOD SPECIMENOrdering Facility: [facility] Address: [address] [place] [address] Performed By: #### 5 8410-2 ####[facility] LABIA [id number] [place] [address] Nucleated RBC (Bld) [#/Vol] 10*3/uL Normal <0.01 [facility] Comment on above: Order Comment: Speci men Type: BLOOD SPECIMENOrdering Facility: [facility] Address: [address] [place] [address] Performed By: #### 5 8410-2 ####[facility] LABCLIA [id number] [place] [address] Platelet mean volume (Bld) [Entitic vol] 9.2 fL Normal 9.0-12.7 [facility] Comment on above: Order Comment: Speci men Type: BLOOD SPECIMENOrdering Facility: [facility] Address: [address] [place] [address] Performed By: #### 5 8410-2 ####[facility] LABCLIA [id number] [place] [address] Platelets (Bld) [#/Vol] 409 10*3/uL High 150-400 [facility] Comment on above: Order Comment: Speci men Type: BLOOD SPECIMENOrdering Facility: [facility] Address: [address] [place] [address] Performed By: #### 5 8410-2 ####[facility] LABCLIA [id number] [place] [address] RBC (Bld) [#/Vol] 4.36 10*6/uL Normal 3.90-5.20 [facility] Comment on above: Order Comment: Speci men Type: BLOOD SPECIMENOrdering Facility: [facility] Address: [address] [place] [address] Performed By: #### 5 8410-2 ####[facility] LABCLIA [id number] [place] [address] WBC (Bld) [#/Vol] 16.45 10*3/uL High 3.70-11.00 [facility] Comment on above: Order Comment: Speci men Type: BLOOD SPECIMENOrdering Facility: [facility] Address: [address] [place] [address] Performed By: #### 5 8410-2 ####[facility] LABCLIA [id number] [place] [address] Shayy 08-15-2022 CNPN Telephone (PASSARAH) EDITH WELLS ([id number]) 1995 F Date Time Provider Department 08/15/22 TESSA SANCHEZ During your visit today, we recorded the following information about you: Kasi Mathur PA-C 08/15/2022 9:48 AM Signed Good morning Dr. Sanchez, This patient was seen by me for virtual PACC for upcoming ARTHROSCOPY ANKLE EXCISION 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 - Right scheduled with you on 08/28/2022 at [facility] under General. She had her pre-op labs [...] Signed Response from Dr. 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 Author Type: Physician Photo Checker And Assembler Type: HANDP Filed: 08/24/2022 1:26 PM Note [...] fevers. Neuro: No history of TIA's, stroke, PILLOWCASE CUTTER tumor, impaired sensorium, hemiplegia, paraplegia or quadraplegia. 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 Normal [facility] CNCOon [address] [facility] CNOVon 2022 CNOV Office Visit (ORAVON ) EDITH WELLS ([id number]) 1995 F Date Time Provider Department 08/08/22 [...] Scan The patient's pertinent medical history from [facility] has been reviewed. PFOMIS forms have [...] anticipated outc (more content not included)... Normal [facility] XR LSPINE 2_3 VIEWSon 2021 XR LSPINE [...] by: CHARBEL TAPIA Date: 2022-08-01 20:44 Normal [facility] XR ankle RT min 3V*on 2021 XR ankle RT min 3V* [facility] Main [place] [address] [place] [address] XRay Report Signed Patient: Edith Wells MR#: [id number] : 1995 Acct:[id number] Age/Sex: 26 / F ADM Date: 07/07/22 Loc: ER Room: Type: [facility] ER Attending Dr: Copies to: Constantine Yee [...] Keaton Brooks M.D.07/08/2022 9:41 AM Dictation Location: [place] [address] Transcribed By: [facility] 07/08/22940 Dictated By: Keaton Brooks II, MD 07/08/22938 Signed By: 07/08/22940 [facility] Covid-19 PCR (CVDTBH)on SARS-CoV-2 (COVID-19) RNA HAROLDO+probe Ql (Unsp spec) Not detected Normal NOT DETECTED [facility] Comment on above: Result Comment: When [...] for this test is supported by the Industrial Design Engineer of Health and Human Service's declaration that [...] L IPA, CMP, SYEDA, PREGQNT #### [facility] [address] [place] [address] Dr. Judah Phipps GROUP A STREP CULTUREon S. pyogenes Ag Ql (Unsp spec) Culture Observations: NEGATIVE FOR GROUP A STREPTOCOCCUS. Normal [facility] Comment on above: Performed By: #### G RASTCX, SSCRN #### [facility] [address] [place], [place] [address] Dr. Judah Phipps STREPT SCREENon 06-28-2022 STREP SCREEN A Negative Normal NEGATIVE [facility] Comment on above: Performed By: #### G RASTCX, SSCRN #### [facility] [address] [place] [address] [address] Judah Phipps XR Ankle Complete Righton [...] by Kristi Olguin on 05/07/2022 1503 Normal [facility] XR Spine Lumbar 4+ Views*on 05-07-2022 XR [...] by Kristi Olguin on 05/07/2022 1453 Normal [facility] Vital Signs Date Time Vital Sign Value Performing Clinician Facility 05-08-2023 09:30-0400 Body height 163.19 cm Charbel Rodriguez Other [facility] Other 05-08-2023 09:30-0400 Body mass index (BMI) [Ratio] 46.15 kg/m2 Charbel Rodriguez Other [facility] Other 05-08-2023 09:30-0400 Body temperature 98.3 [degF] Charbel Rodriguez Other [facility] Other 05-08-2023 09:30-0400 Body weight 122.93 kg Charbel Alicerosey Other [facility] Other 05-08-2023 09:30-0400 Diastolic blood pressure 84 mm[Hg] Charbel Rodriguez Other [facility] Other 05-08-2023 09:30-0400 Respiratory rate 18 /min Charbel Alicerosey Other [facility] Other 05-08-2023 09:30-0400 SaO2% (BldA) [Mass fraction] 98 % Charbel Rodriguez Other [facility] Other 05-08-2023 09:30-0400 Systolic blood pressure 130 mm[Hg] Charbel Rodriguez Other [facility] Other 04-12-2023 10:50-0400 Body height 163.19 cm Charbel Rodriguez Other [facility] Other 04-12-2023 10:50-0400 Body mass index (BMI) [Ratio] 45.47 kg/m2 Charbel Alicerosey Other [facility] Other 04-12-2023 10:50-0400 Body temperature 98.8 [degF] Charbel Rodriguez Other [facility] Other 04-12-2023 10:50-0400 Body weight 121.11 kg Charbel Rodriguez Other [facility] Other 04-12-2023 10:50-0400 Diastolic blood pressure 84 mm[Hg] Charbel Rodriguez Other [facility] Other 04-12-2023 10:50-0400 Respiratory rate 20 /min Charbel Alicerosey Other [facility] Other 04-12-2023 10:50-0400 SaO2% (BldA) [Mass fraction] 98 % Charbel Michael Other [facility] Other 04-12-2023 10:50-0400 Systolic blood pressure 138 mm[Hg] Charbel Rodriguez Other [facility] Other 12-07-2022 11:20-0500 Body height 163.19 cm Ronda Guevara Other [facility] Other 12-07-2022 11:20-0500 Body mass index (BMI) [Ratio] 42.57 kg/m2 Ronda Guevara Other [facility] Other 12-07-2022 11:20-0500 Body temperature 97.2 [degF] Ronda Guevara Other [facility] Other 12-07-2022 11:20-0500 Body weight 113.4 kg Ronda Guevara Other [facility] Other 12-07-2022 11:20-0500 SaO2% (BldA) [Mass fraction] 98 % Ronda Guevara Other [facility] Other 08-14-2022 11:13-0400 Body height 165.1 cm [facility] 08-14-2022 11:13-0400 Body weight 120.66 kg [facility] 08-14-2022 11:13-0400 Heart rate 60 /min [facility] 08-13-2022 15:40-0400 Body height 163.19 cm Charbel Rodriguez Other [facility] Other 08-13-2022 15:40-0400 Body mass index (BMI) [Ratio] 45.64 kg/m2 Charbel Rodriguez Other [facility] Other 08-13-2022 15:40-0400 Body temperature 97.7 [degF] Charbel Rodriguez Other [facility] Other 08-13-2022 15:40-0400 Body weight 121.56 kg Charbel Rodriguez Other [facility] Other 08-13-2022 15:40-0400 Diastolic blood pressure 82 mm[Hg] Charbel Rodriguez Other [facility] Other 08-13-2022 15:40-0400 Respiratory rate 18 /min Charbel Rodriguez Other [facility] Other 08-13-2022 15:40-0400 SaO2% (BldA) [Mass fraction] 98 % Charbel Rodriguez Other [facility] Other 08-13-2022 15:40-0400 Systolic blood pressure 132 mm[Hg] Charbel Rodriguez Other [facility] Other 07-07-2022 18:14-0400 Body temperature 98.4 [degF] DO Charbel Michael Work Phone: [facility] 07-07-2022 18:14-0400 Diastolic blood pressure 80 mm[Hg] DO Charbel Jenkinsrosey Work Phone: [facility] 07-07-2022 18:14-0400 Heart rate 65 /min DO Charbel Rodriguez Work Phone: [facility] 07-07-2022 18:14-0400 Respiratory rate 20 /min DO Charbel Michael Work Phone: [facility] 07-07-2022 18:14-0400 SaO2% (BldA) [Mass fraction] 99 % DO Charbel Rodriguez Work Phone: [facility] 07-07-2022 18:14-0400 Systolic blood pressure 147 mm[Hg] DO Charbel Rodriguez Work Phone: [facility] 07-07-2022 18:05-0400 Body height 165.1 cm DO Charbel Rodriguez Work Phone: [facility] 07-07-2022 18:05-0400 Body weight 113.39 kg DO Charbel Rodriguez Work Phone: [facility] Encounters Encounter Date Encounter Type Care Provider Facility Start: 03-16-2024 End: 03-16-2024 ambulatory JACK ADAMO Not Available Start: 03-04-2024 End: 03-04-2024 ambulatory SONIA A [...] 09-13-2023 End: 09-13-2023 ambulatory Charbel Rodriguez Other [facility] Other Start: 09-13-2023 Telephone encounter Charbel Rodriguez [facility] Start: 09-10-2023 End: 09-10-2023 ambulatory SONIA A VISCI Not Available Start: 06-24-2023 End: 06-24-2023 ambulatory Charbel Rodriguez Other [facility] Other Start: 06-24-2023 Telephone encounter Charbel Rodriguez [facility] Start: 06-03-2023 End: 06-03-2023 ambulatory Charbel Rodriguez Other [facility] Other Start: 06-03-2023 Telephone encounter Charbel Rodriguez [facility] [place] Start: 05-27-2023 End: 05-27-2023 ambulatory Charbel Rodriguez Other [facility] Other Start: 05-27-2023 Telephone encounter Charbel Rodriguez [facility] [place] Start: 05-08-2023 End: 05-08-2023 ambulatory Charbel Rodriguez Other [facility] Other Start: 05-08-2023 Office outpatient vi sit 15 minutes Charbel Rodriguez [facility] [place] Start: 04-26-2023 End: 04-26-2023 ambulatory Charbel Rodriguez Other [facility] Other Start: 04-26-2023 Telephone encounter Charbel Rodriguez [facility] Start: 04-19-2023 End: 04-19-2023 ambulatory Charbel Rodriguez Other [facility] Other Start: 04-19-2023 Telephone encounter Charbel Rodriguez [facility] Start: 04-17-2023 End: 04-17-2023 ambulatory CHARBEL RODRIGUEZ Facility: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 Other Start: 04-12-2023 Office outpatient vi sit 15 minutes Charbel Rodriguez [facility] [place] Start: 03-13-2023 End: 03-13-2023 ambulatory CHARBEL RODRIGUEZ Facility:[facility] Start: 02-28-2023 Telephone encounter Tessa bates MD Work Phone: Orthopaedics Comment on above: Electronic Communica tion (PT order faxed today) Start: 01-10-2023 Telephone encounter Tessa bates MD Work Phone: Orthopaedics Comment on above: Return To Work Lette r Start: 01-02-2023 End: 01-02-2023 ambulatory CHARBEL RODRIGUEZ Facility:[facility] Start: 01-02-2023 End: 01-02-2023 Subsequent hospital visit by physician Mike [facility] Rej Work Phone: Radiology Comment on above: [...] 12-07-2022 End: 12-07-2022 ambulatory Ronda Guevara Other [facility] Other Start: 12-07-2022 Office outpatient vi sit 25 minutes Ronda Guevara [facility] Start: 12-07-2022 Telephone encounter Charbel Rodriguez [facility] Start: 11-19-2022 End: 11-19-2022 ambulatory Charbel Rodriguez Other [facility] 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 Other Start: 11-14-2022 Telephone encounter Charbel Rodriguez [facility] Start: 11-13-2022 End: 11-14-[address] CHARBEL RODRIGUEZ Facility: Start: 11-12-2022 End: 11-12-2022 ambulatory Charbel Rodriguez Other [facility] 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 Other Start: 09-05-2022 Telephone encounter Charbel Rodriguez [facility] Start: 09-03-2022 End: 09-03-2022 ambulatory Charbel Rodriguez Other [facility] 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 Start: 08-16-2022 End: 08-16-2022 ambulatory Charbel Rodriguez Other [facility] Other Start: 08-16-2022 Telephone encounter Charbel Rodriguez [facility] Start: 08-15-2022 Telephone encounter Tessa bates MD Work Phone: Pre Anesthesia Comment on above: Results; Preparation s For Surgery Start: 08-15-2022 End: 08-15-2022 ambulatory CHARBEL RODRIGUEZ Facility:[facility] Start: 08-14-2022 Encounter for other preprocedural examination CHARBEL RODRIGUEZ [facility] Start: 08-14-2022 End: 08-14-2022 Admission to establishment [facility] Start: 08-14-2022 End: 08-14-2022 ambulatory TESSA SANCHEZ Pre Anesthesia Comment on above: Preop examination (P rimary Dx); Anemia, unspecified type; Difficult intravenous access; Acute bilateral low back pain without sciatica; History of syncope; History of palpitations; Former smoker; BMI 40.0-44.9, adult ([facility] Start: 08-14-2022 End: 08-14-2022 Preprocedural examination done [facility] Pre Anesthesia Start: 08-13-2022 End: 08-13-2022 ambulatory Charbel Rodriguez Other [facility] Other Start: 08-13-2022 Office outpatient vi sit 15 minutes Charbel Rodriguez [facility] Start: 08-13-2022 Telephone encounter Charbel Rodriguez [facility] Start: 2022 End: 2022 ambulatory CHARBEL RODRIGUEZ Facility: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 Other Start: 07-09-2022 Telephone encounter Charbel Rodriguez [facility] Start: 07-07-2022 End: 07-07-2022 Emergency department patient visit Charbel Rodriguez Facility:[facility] Start: 07-07-2022 End: 07-07-2022 Emergency department patient visit DO Charbel Rodriguez Work Phone: [facility] Start: 06-28-2022 End: 06-28-[address] CHARBEL RODRIGUEZ Facility:[facility] Start: 05-23-2022 End: 05-23-2022 ambulatory Charbel Rodriguez Other [facility] Other Start: 05-23-2022 Telephone encounter Charbel Rodriguez [facility] Start: 01-06-[address] CHARBEL RODRIGUEZ Facilit [...] Vaccine (7 - Td or Tdap) [facility] Start: 06-28-2023 Influenza vaccination [facility] Start: 08-14-2022 End: 10-14-2022 Basic metabolic 2000 panel - Serum or Plasma BASIC METABOLIC PNL Lab Routine History of syncope Expected: 08/14/2022, Expires: 10/14/2022 [facility] Work Phone: Comment on above: Expected: 08/14/2022 , Expires: 10/14/2022 Start: 08-14-2022 End: 10-14-2022 CBC panel - Blood by Automated count CBC Lab Routine Preop examination Anemia, unspecified type Expected: 08/14/2022, Expires: 10/14/2022 [facility] Work Phone: Comment on above: Expected: 08/14/2022 , Expires: 10/14/2022 Start: 07-07-2022 X-ray of right ankle XR ankle RT min 3V* [facility] Start: 07-07-2022 XR Ankle - right GE 3 Views [facility] Work Phone: Start: 06-28-2022 Influenza vaccination INFLUENZA (#1) [facility] Start: 10-28-2021 DEPRESSION ASSESSMENT DEPRESSION ASS ESSMENT [facility] Start: 2015 PAP TESTING PAP TESTING [facility] Start: 2013 Urine microalbumin profile DTAP,TDAP,TD (1 - Tdap) [facility] Start: 2012 HEPATITIS C SCREENING HEPATITIS C SC REENING [facility] Start: 2012 HIV SCREENING HIV SCREENING [facility] Start: 2000 PNEUMOCOCCAL (1 - PCV) PNEUMOCOCCAL (1 - PCV) [facility] Start: 02-06-1995 COVID-19 VACCINE (#1) COVID-19 VACCI NE (#1) [facility] Start: 1994 HEPATITIS B (1 of 3 - 3-dose series) HEPATITIS B (1 of 3 - 3-dose series) [facility] Patient Education Ankle Sprain ED [facility] Work Phone: Patient referral [facility] Work Phone: End: 11-30-2023 XR ANKLE GENERAL 3V AP/LAT/OBL RIGHT XR ANKLE GENERAL 3V AP/LAT/OBL RIGHT Radiology Routine Osteochondritis dissecans of right talus 1 Occurrences starting 11/02/2022 until 11/30/2023 [facility] Work Phone: Comment on above: 1 Occurrences starti ng 11/02/2022 until 11/30/2023 [facility] Immunizations Immunization Date Immunization Notes Care Provider Fa snow 11-29-2021 tetanus toxoid, reduced diphtheria toxoid, and acellular pertussis vaccine, adsorbed DO Charbel Rodriguez Work Phone: [facility] NEGATED: Highlighted row has not occurred!08-07-2019 influenza, seasonal, injectable Patient Objection Charbel Rodriguez Other [facility] Other Payers Date Payer Category Payer Medicaid [id number] 2. [id number] 2022 Self-pay [id number] 2021 Medicaid [id number] 5 2018 Unknown [id number] [id number] 5 1994 Unknown [id number] 2.16.84 0.1.173777.3.579.2.593 1994 Unknown [id number] 2.16.84 0.1.762001.3.579.2.593 1994 Unknown [id number] 2.16.84 0.1.262329.3.579.2.593 1994 Unknown [id number] 2.16.84 0.1.628703.3.579.2.593 1994 Unknown [id number] 2.16.84 0.1.684776.3.579.2.1259 1994 Unknown [id number] 2.16.84 0.1.284970.3.579.2.1259 1994 Unknown [id number] 2.16.84 0.1.374856.3.579.2.1259 1994 Unknown [id number] 2.16.84 0.1.696973.3.579.2.1259 1994 Unknown [id number] 2.16.84 0.1.885687.3.579.2.1259 1994 Unknown [id number] 2.16.84 0.1.297372.3.579.2.1259 1994 Unknown [id number] 2.16.84 0.1.510500.3.579.2.1259 1994 Unknown [id number] 2.16.84 0.1.484155.3.579.2.1259 1994 Unknown [id number] 2.16.84 0.1.270643.3.579.2.1259 1994 Unknown [id number] 2.16.84 0.1.847511.3.579.2.1259 1994 Unknown [id number] 2.16.840 .1.161016.3.579.2.1259 1994 Unknown [id number] 2.16.840 .1.235291.3.579.2.1259 1994 Unknown [id number] 2.16.840 .1.539833.3.579.2.1259 1994 Unknown [id number] 2.16.840. 1.486260.3.579.2.1259 1960 Medicaid [id number] 1959 Unknown [id number] Medicaid [employer] [id number] Unknown [id number] 2.16.8 40.1.004965.3.579.2.531 Social History Date Type Detail Facility Start: 07-07-2022 End: 08-14-2022 Tobacco smoking status WYIS Ex-smoker (finding) [facility] Start: 1995 Sex Assigned At Female [facility] Start: 10-03-2018 Tobacco smoking stat us WYIS Occasional tobacco smoker [facility] Start: 10-03-2018 End: 08-14-2022 Tobacco use and exposure Smokeless tobacco non-user [facility] Start: 01-01-2019 End: 08-14-2022 Alcohol intake Current non-drinker of alcohol (finding) [facility] Start: 1995 Sex Assigned At Not on file [facility] Start: 08-14-2022 End: 11-10-2022 Sex Assigned At [email or web address] [email or web address] Other End: 10-28-2019 History of tobacco use Current smoker [facility] Work Phone: End: 10-28-2019 History of tobacco use Cigarette Smoker [facility] Work Phone: Start: 08-14-2022 End: 11-10-2022 Cigarettes smoked current (pack per day) - Reported 0.[address] [facility] Start: 08-04-2022 End: 08-28-2022 Exposure to SARS-CoV-2 (event) Not sure [facility] Work Phone: National Score (1-100), lower number is lower risk [address] [facility] Clinical Notes 05-23-2022 to 06-03-2023 Note Date & Type Note Facility 06-03-2023 Evaluation note Encounter Date Diagnosis Assessment Notes May, Depression (ICD-10 - F32.9) [facility] Other 07-12-2023 Evaluation note* Encounter Date Diagnosis [...] her dose should be increased or not. [facility] Other 06-30-2023 Evaluation note* Encounter Date Diagnosis Assessment Notes Treatment Notes Treatment Clinical Notes Mar, Weight gain (ICD-10 - R63.5) [facility] Other 06-21-2023 NoteHNO ID: [id number] Author: Tessa Sanchez MD Service: ? Author [...] records. This note was partially generated using [employer] voice recognition system, and there may be some incorrect words, spellings, and punctuation that were not noted in checking the note before saving. Tessa Sanchez M.D.[facility]06-21-2023 History of Present illness Narrative* Tessa Sanchez [...] records. This note was partially generated using Confidex voice recognition system, and there may be some incorrect words, spellings, and punctuation that were not noted in checking the note before saving. Tessa Sanchez M.D. documented in this encounterMercy Health [facility]06[facility] Evaluation note* Encounter Date Diagnosis Assessment [...] can take a multivitamin daily ([place] Complete) [employer] Other 05-17-2023 NoteHNO ID: [id number] Author: Tessa Sanchez MD Service: ? Author Type: Physician Type: Progress Notes Filed: 03/13/2023 8:03 PM Note Text: Edith Wells returns today to follow up from surgery on 08/28/22: right ankle arthroscopy, excision OCD medial talus, microfracture of talus, synovectomy, surgeon monitored fluoroscopy. She states that she does feel pain today 7/10 she states that its stabbing pain. She [...] records. This note was partially generated using Confidex voice recognition system, and there may be some incorrect words, spellings, and punctuation that were not noted in checking the note before saving. Tessa Sanchez M.D.[facility]05-05-2023 Miscellaneous Notes* Telephone Encounter - Lizzette Romeo RN - 03/01/2023 10:21 AM EDT Faxed today at 10:20am. Lizzette Romeo RN * Telephone Encounter - Margy Contreras Pss - 02/28/2023 4:08 PM EDT Patient wants to get physical therapy at [facility] in [place]. Has been approved by [facility] and she can now schedule. Asking for recent therapy order from Dr Sanchez be faxed to [facility] in [place] at [phone]. documented in this encounterMercy Health St. [facility]03-17-2023 Miscellaneous Notes* Telephone Encounter - Lizzette Romeo RN - 01/11/2023 12:04 PM EDT Patient's note faxed today as requested Lizzette Romeo RN * Telephone Encounter - Autumn Clayton [...] calling: self Call patient at: at home [phone] (home) [phone] (cell) Was an appointment scheduled: No Closing statement: Results or non-symptom based questions: Thank you for calling [facility], your call will be returned within [...] back to the office to update CALL [phone] documented in [address] encounterMer[address] [facility] [address]. [facility]03-08-2023 NoteHNO ID: [id number] Author: RT Rubina(Wayne) Service: Radiology Author Type: Technologist Type: Progress [...] Florence Cespedes RT(R) January 02, 2023 4:10 [facility]03-08-2023 NoteHNO ID: [id number] Author: Tessa Sanchez MD Service: ? Author [...] records. This note was partially generated using Confidex voice recognition system, and there may be [...] Past Histories independently gathered by the clinical application support and the remaining scribed note accurately describes my personal service to the patient. Tessa Sanchez M.D.[facility]03-08-2023 History of Present illness Narrative* Blaise Glynn, [...] 2023 4:10 PM documented in this encounterMercy Health St. [facility]03-08-2023 History of Present illness Narrative* Tessa [...] records. This note was partially generated using Confidex voice recognition system, and there may be some incorrect words, spellings, and punctuation that were not noted in checking the note before saving. Scribe Attestation: By signing my name below, I, Pippa Moss, attest that this documentation has been prepared under the direction and in the presence of Tessa Sanchez MD. Electronically Signed: carmelina Alarconibe, January 02, 2023 4:30 PM I agree with the Chief Complaint, ROS, and Past Histories independently gathered by the clinical application support and the remaining scribed note accurately describes my personal service to the patient. Tessa Sanchez M.D. documented in this encounterMercy Health St. [facility]02-24-2023 Miscellaneous Notes* Telephone Encounter - Vinay Corona RN - 12/21/2022 5:34 PM EST This RN called and spoke with patient. Letter sent via Talko she report she received it. Also discussed leaving printed office notes up at front office manager file for pick up attendant. She was grateful for the call. Vinay Corona RN BSN * Telephone Encounter - Ana Luisa Hernandez [...] that prevented her form having PT. CALL [phone] * Telephone Encounter - Autumn Clayton - [...] update Please advise documented in this encounterMercy Health St. [facility]02-24-2023 Miscellaneous Notes* Telephone Encounter - Vinay [...] to complete them. documented in this encounterMercy Health St. [facility]02-10-2023 Evaluation note* Encounter Date Diagnosis Assessment [...] treatment plan. Patient left in stable condition [facility] [employer] Other 01-23-2023 Evaluation note* Encounter Date Diagnosis Assessment Notes Treatment Notes Treatment Clinical Notes Oct, Cough (ICD-10 - R05.9) Oct, Sore throat (ICD-10 - J02.9) Oct, Headache (ICD-10 - R51.9) Oct, Congestion of nasal sinus (ICD-10 - R09.81) [facility] [employer] Other 01-18-2023 NoteHNO ID: [id number] Author: RT Marquis(R) Service: Radiology Author Type: [...] BY: RT Marquis(R) November 14, 2022 4:05 [facility]01-18-2023 History of Present illness Narrative* Syeda Jennings RT(Wayne) - 11/14/2022 4:00 PM EST Radiology Service [...] 2022 4:05 PM documented in this encounterMercy Health St. [facility]01-18-2023 Evaluation note* Encounter Date Diagnosis Assessment Notes Treatment Notes Treatment Clinical Notes Oct, Leukocytosis (ICD-10 - D72.829) [facility] [employer] Other 01-17-2023 NoteHNO ID: [id number] Author: Tessa Sanchez MD Service: ? Author [...] strengthening proprioception and follow-up in 4 weeks [facility] History of Present illness Narrative* Tessa Sanchez [...] Tessa Sanchez MD documented in this encounterMercy Health St. [facility]01-16-2023 Evaluation note* Encounter Date Diagnosis Assessment [...] will have this done at the [facility] lab. She can call for results. [...] Oct, Other 2:54 PM - 3:02 PM [employer] Other 12-14-2022 NoteHNO ID: [id number] Author: Tessa Sanchez MD Service: ? Author [...] in 6 weeks for recheck Tessa Sanchez [facility]12-14-2022 History of Present illness Narrative* Tessa [...] Tessa Sanchez MD documented in this encounterMercy Health St. [facility]12-02-2022 Miscellaneous Notes* Telephone Encounter - Lizzette Romeo RN - 09/28/2022 2:23 PM EST I spoke with Kathie on 09/26/22. Lizzette Romeo RN * Telephone Encounter - Rita Tidwell - 09/26/2022 11:12 AM EST Patient requesting to speak with provider or staff in regards to right leg pain. She is having painfrom her toes up to her knee. Her right ankle surgery was 08/28/22 and questions if pain is normal?Patient is to start therapy today at 6 pm. Patient requesting a return call through #[phone] #[phone]. The second number is her boyfriends line, Elias. Patient gives okay to leave me ssage with Elias if needed. Please advise. documented in this encounterMercy Health St. [facility]11-16-2022 NoteHNO ID: [id number] Author: Tessa Sanchez MD Service: ? Author [...] follow up in 4 weeks. Tessa Sanchez [facility]11-16-2022 NoteHNO ID: [id number] Author: Alfred Campo Cast Service: ? Author Type: ? Type: Progress Notes Filed: 09/12/2022 4:10 PM Note Text: PT ASSESSMENT - CASTING ROOM Edith presents for cast removal. Applied pneumatic aircast walker(HAD PRIOR TO SURGERY) to Right leg non-weight bearing Patient has been instructed in Care of boot.. Alfred Campo Cast Beeper: [id number]. John Of God Hospital11-16-2022 History of Present illness Narrative* Tessa Sanchez [...] Tessa Sanchez MD documented in this encounterMercy Health St. [facility]11-16-2022 History of Present illness Narrative* Alfred Campo Cast - 09/12/2022 4:04 PM EST PT ASSESSMENT - CASTING ROOM Edith presents for cast removal. Applied pneumatic aircast walker(HAD PRIOR TO SURGERY) to Right leg non-weight bearing Patient has been instructed in Care of boot.. Alfred Campo Cast Beeper: [id number] documented in this encounterMercy Health St. [facility]11-07-2022 Miscellaneous Notes* Telephone Encounter - Lizzette Romeo RN - 09/03/2022 5:11 PM EST I [...] change and check of her incisions. Lizzette Romeo RN * Telephone Encounter - Amparo Coyle RN - 09/03/2022 12:16 PM EST The [...] 09/12. Please advise. documented in this encounterMercy Health St. [facility]11-07-2022 NoteHNO ID: [id number] Author: Lizzette Romeo RN Service: ? Author Type: ? Type: [...] Qureshi was the physician present today. Lizzette Romeo RNSt. John Of God Hospital11-06-2022 Miscellaneous Notes* Telephone Encounter - Eyad Samuels MD - 09/02/2022 5:35 PM EST Patient [...] and ankle surgery. I stated that if decree sensation/paresthesias and pain got worse or did not improve after 30 minutes of strict elevation that she should present quickly to her local emergency department or urgent care for further evaluation and possible adjustment of her cast. The patient was in agreement with this plan and all questions were answered. Kristina Samuels MD Orthopaedic Surgery, PGY-3 documented in [address] encounterMercy Health St. [facility]11-02-2022 NoteHNO ID: [id number] Author: Alfred Griffith Service: ? Author Type: ? Type: Progress Notes Filed: 08/29/2022 3:44 PM Note Text: PT ASSESSMENT - CASTING ROOM Edith presents for Application of cast. Applied short cast: to Right leg non-weight bearing Patient has been instructed in Care of cast.. Alfred Campo Cast Beeper: [id number]. John Of God Hospital11-02-2022 History of Present illness Narrative* Alfred Alber Cast - 08/29/2022 3:40 PM EDT PT ASSESSMENT - CASTING ROOM Edith presents for Application of cast. Applied short cast: to Right leg non-weight bearing Patient has been instructed in Care of cast.. Alfred Campo Cast Beeper: [id number] documented in this encounterMercy Health St. 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 Reason for block: post-op pain management/at surgeon's [...] August 28, 2022 TIME: 1:00 PM CSN: [id number] NoteHNO ID: [id number] Author: GEORGIE Tinsley Service: Anesthesiology Author Type: Biomedical Engineering Professor Type: Anesthesia Procedure Notes Filed: 08/28/2022 10:57 [...] August 28, 2022 TIME: 10:56 AM CSN: [id number] NoteHNO ID: [id number] Author: Mike Alcantar MD Service: Anesthesiology Author Type: Anesthesiologist Type: Anesthesia Procedure Notes Filed: 08/28/2022 9:35 AM Note Text: ANESTHESIOLOGY PROCEDURE NOTE Peripheral Nerve Block General Information Procedure Start Time/Medication Administration: 08/28/2022 9:16 AM Procedure End time: 08/28/2022 9:24 AM Patient location during procedure: pre-op Timeout Performed Pre-procedure: timeout performed (920) Consent Obtained: Yes 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 Sanchez's team: Alyx Erika [...] Right scheduled with you on 08/28/2022 at [facility] under General. She had her pre-op labs [...] Mathur PA-C PACC documented in this encounterMercy Health St. [facility]10-18-2022 Instructions* Patient Instructions* Kasi Mathur PA-C - 08/14/2022 11:33 AM EDT Lab in [place]: [facility] [place] [id number] PATIENT PREOPERATIVE INSTRUCTIONS Tessa Sanchez MD has scheduled you for your procedure at this surgery center: [facility]: [phone] --[phone] [address]. Please read below carefully for your personalized [...] Procedures: - YOU MUST HAVE A RESPONSIBLE SUPERVISOR PROPERTIES TAKE YOU HOME. A CAGE MAKER MACHINE OR WINE PASTEURIZER CANNOT BE MADE A RESPONSIBLE SUPERVISOR PROPERTIES. - We recommend that a responsible person [...] the afternoon before surgery (or Saturday for Jey surgery) with a scheduled arrival time. - If you have not heard by 4 pm, please contact the surgery center above. Please be aware that emergency situations arise, which may delay or change your surgical time. If this happens, we will notify you as soon as possible and regret any inconvenience. If you already have an Advance Directive, please fax a copy to [phone] or email to for it to be [...] Kasi Mathur PA-C documented in this encounterMercy Health St. [facility]10-18-2022 History and physical note * Kasi [...] fevers. Neuro: No history of TIA's, stroke, PILLOWCASE CUTTER tumor, impaired sensorium, hemiplegia, paraplegia or quadraplegia. [...] or incontinence,, stones or chronic kidney disease ELECTRICAL TESTS SUPERVISOR: Negative for abnormal vaginal bleeding, abnormal vaginal [...] visit: Labs per care everywhere reviewed: 11/29/2021 [facility] CBC Hgb 9.0 (11.8-15.4) Hct 26.5% [...] a prior CC echocardiographic exam for comparison. credit consultant 09/17/2018 Patient had a min HR of 36 bpm, max HR of 156 bpm, and avg HR of 74 bpm. Predominant underlying rhythm was Sinus Rhythm. No Isolated SVEs, SVE Couplets, or SVE Triplets were present. Isolated VEs were frequent (8.2%, 17379), and no VE Couplets or VE Triplets [...] a history of 2 episodes of syncope (2017 and 2018). She mentioned that for one of theseepisodes, [...] been asymptomatic. 7. Former smoker Quit 2019, 13 ppd x years 8. BMI 40.0-44.9, adult ([facility] BMI 44 METS: Climb a flight of [...] AM PAGER/CONTACT #: documented in this encounterMercy Health St. [facility]10-17-2022 Evaluation note* Encounter Date Diagnosis Assessment [...] she can discuss this treatment with her real estate sales manager. She is having surgery on 08-28-22. Guidance [...] be following with Dr. Sanchez at the [facility] location, she was referred to him by Dr. Cosby. She thinks it is bone that is trying to heal. [facility] [employer] Other 10-12-2022 NoteHNO ID: [id number] Author: Tessa Sanchez MD Service: ? Author [...] Scan The patient's pertinent medical history from [facility] has been reviewed. PFOMIS forms have [...] the patient, and the (more content not included)...[facility]10-12-2022 History of Present illness Narrative* Tessa Sanchez MD - 2022 11:30 AM EDT New Patient Referring Physician: Charbel Cosby Edith [...] Scan The patient's pertinent medical history from [facility] has been reviewed. 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 This note was partially generated using Confidex voice recognition system, and there may be [...] Past Histories independently gathered by the clinical application support and the remaining scribed note accurately describes my personal service to the patient. Tessa Sanchez M.D. documented in this encounterMercy Health St. [facility]07-27-2022 Evaluation note* Encounter Date Diagnosis Assessment [...] S82.899A) right ankle She has seen an forensic specialist twice for a right ankle fracture. [...] Apr, Other 9:55 AM - 10:05 AM [facility] Other Evaluation noteNo assessment information available [facility] Work Phone: Evaluation note* Diagnosis Osteochondritis dissecans of right talus- Primary documented in this encounter [facility] HospitalEvaluation noteNo InformationNort Conservis Other Evaluation note* Diagnosis Preop examination- Primary [...] right talus documented in this encounter 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 documented in this encounter [facility] note* Diagnosis Osteochondritis dissecans of right talus- Primary documented in this encounter [facility] note* Diagnosis Osteochondritis dissecans of right talus- Primary documented in this encounter [facility] note* Diagnosis Osteochondritis dissecans of right talus- Primary documented in this encounter [facility] note* Diagnosis Osteochondritis dissecans of right talus- Primary documented in this encounter [facility] note* Diagnosis Osteochondritis dissecans of right talus- Primary documented in this encounter [facility] note* Diagnosis Osteochondritis dissecans of right talus- Primary documented in this encounter [facility] note* Diagnosis Osteochondritis dissecans of right talus- Primary documented in this encounter [facility] note* Diagnosis Osteochondritis dissecans of right talus documented in this encounter [facility] general Narrative - Reported* Type Description Date Medical History reflux Medical History menstrual irregularity Medical History vertigo Medical History anxiety Medical History ankle fx right Surgical History T & A 2003 Surgical History Mole removal Surgical History C section Surgical History IUD -Reyna 03/31/17 Surgical History 11/28/21 Hospitalization History See Above [facility] Other Hismdvl general Narrative - Reported* Type Description Date Medical History reflux Medical History menstrual irregularity Medical History vertigo Medical History anxiety Medical History ankle fx right Surgical History T & A 2003 Surgical History Mole removal Surgical History C section Surgical History IUD -Reyna 03/31/17 Surgical History 11/28/21 Surgical History right ankle surgery 08/28/22 Hospitalization History See Above [facility] Other History general Narrative - Reported* Type [...] IUD removed 03/06/23 Hospitalization History See Above [facility] [employer] Other Reason for referral (narrative)* Diagnostic Procedure Only (Routine) - Pending Review Specialty Diagnoses / Procedures Referred By Juve t Referred To Contact XR IMAGING Diagnoses Osteochondritis dissecans of right talus Procedures XR ANKLE GENERAL 3V AP/LAT/OBL RIGHT RADEX ANKLE COMPLETE MINIMUM 3 [place] T[place] [id number] [place] [address] Xr Imaging Referral ID Status Reason Start Date Expiration Date Visits Requested Visits Authorized [id number] Pending Review Auto-Generat ed Referral 11/02/2022 11/30/2023 1 1 [facility] for referral (narrative)* - Pending Review Specialty Diagnoses / Procedures Referred By Juve t Referred To Contact Physical Therapy Diagnoses Osteochondritis dissecans of right talus Procedures CONSULT TO PHYSICAL [place]essa Sanchez [place] [id number] [place] [address] Referral ID Status Reason Start Date Expiration Date V isits Requested Visits Authorized [id number] Pending Review 04/17/2023 07/16/2023 1 1 [facility] for referral (narrative)* Diagnostic Procedure Only (Routine) - Closed Specialty Diagnoses / Procedures Referred By Juve t Referred To Contact XR IMAGING Diagnoses Osteochondritis dissecans of right talus Procedures XR ANKLE GENERAL 3V AP/LAT/OBL RIGHT RADEX ANKLE COMPLETE MINIMUM [address] [place] [address] [place] [address] [place] [address] Referral ID Status Reason Start Date Expiration Date V isits Requested Visits Authorized [id number] Closed Auto-Generate d Referral 01/02/2023 01/31/2024 1 [facility] Diagnostic Procedure Only (Routine) - Closed Specialty Diagnoses / Procedures Referred By Juve duarte Referred To Contact XR IMAGING Diagnoses Osteochondritis dissecans of right talus Procedures XR ANKLE GENERAL 3V AP/LAT/OBL RIGHT RADEX ANKLE COMPLETE MINIMUM [address] [place] [address] [place] [address] [place] [id number] Referral ID Status Reason Start Date Expiration Date V isits Requested Visits Authorized [id number] Closed Auto-Generate d Referral 11/02/2022 11/30/2023 1 1 [facility] Summary Purpose Family History No Family History Records Found Relationship Condition Age at Onset Recorded Date/T domingo Not Specified No pertinent family history Unknown Advance Directives No Advanced Directives Records Found Advance Directive Response Recorded Date/ Time Advance Directives No September 2:17pm Chief Complaint and Reason for Visit Chief Complaint rt ankle pain Reason for Referral Specialty Diagnoses / Procedures Referred By Juve duarte Referred To Contact [facility] Diagnoses Osteochondritis dissecans of right talus Procedures CONSULT TO PHYSICAL THERAPY PHYSICAL THERAPY EVALUATION HIGH COMPLEX [address] [place] [address] [place] [address] [facility] [address] [place] [address] Referral ID Status Reason Start Date Expiration Date Visits Requested Visits Authorized [id number] Pending Review Auto-Generat ed Referral 2 09/12/2023 1 1 Additional Source Comments INFORMATION SOURCE (unrecogn ized section and content) DATE CREATED AUTHOR 05/08/2022 [facility] dical Specialist DATE CREATED AUTHOR AUTHOR'S ORGANIZ ATION 08/29/2022 [facility] DATE CREATED AUTHOR AUTHOR'S ORGANIZ ATION 11/15/2022 [facility] DATE CREATED AUTHOR AUTHOR'S ORGANIZ ATION 05/28/2023 [facility] DATE CREATED AUTHOR AUTHOR'S ORGANIZ ATION 06/27/2023 [facility] DATE CREATED AUTHOR AUTHOR'S ORGANIZ ATION 03/17/2024 [facility] dical Specialists EPIC Care Teams (unrecognized sec tion and content) Team Status: Inactive Member Role Status Dates Charbel Rodriguez DO Primary Care Provider Active Constantine Yee PA-C Emergency Provider Active Team Status: Active Member Role Status Dates Charbel Rodriguez DO Primary Care Provider Active Field Mechanic/Site Lead Relationship Specialty Start Date End Date Charbel Rodriguez, DO [address] [place] [address] PCP - General Family Medicine 07/07/18 Charbel Cosby [address] [place] [address] Referring Orthopedics 07/18/22 Field Mechanic/Site Lead Relationship Specialty Start Date End Date Charbel Rodriguez, DO [address] [place] [address] PCP - General Family Medicine 07/07/18 Charbel Cosby [address] [place] [address] Referring Orthopedics 07/18/22 Field Mechanic/Site Lead Relationship Specialty Start Date End Date Charbel Rodriguez, DO [address] [place] [address] PCP - General Family Medicine 07/07/18 Charbel Cosby [address] [place] [address] Referring Orthopedics 07/18/22 Field Mechanic/Site Lead Relationship Specialty Start Date End Date Charbel Rodriguez, DO [address] [place] [address] PCP - General Family Medicine 07/07/18 Charbel Cosby [address] [place] [address] Referring Orthopedics 07/18/22 Field Mechanic/Site Lead Relationship Specialty Start Date End Date Charbel Rodriguez, DO [address] [place] [id number] PCP - [facility] Family Medicine 07/07/18 Charbel Cosby [address] [place] [address] Referring Orthopedics 07/18/22 Field Mechanic/Site Lead Relationship Specialty Start Date End Date Charbel Rodriguez, DO [address] [place] [id number] PCP - [facility] Medicine 07/07/18 Charbel Cosby [address] [place] [address] Referring Orthopedics 07/18/22 Field Mechanic/Site Lead Relationship Specialty Start Date End Date Charbel Rodriguez, DO [address] [place] [phone] PCP - [facility] Medicine 07/07/18 Charbel Cosby [address] [place] [phone] Referring Orthopedics 07/18/22 Field Mechanic/Site Lead Relationship Specialty Start Date End Date Charbel Rodriguez, DO [address] [place] [phone] PCP - [facility] Medicine 07/07/18 Charbel Cosby [address] [place] [address] Referring Orthopedics 07/18/22 Field Mechanic/Site Lead Relationship Specialty Start Date End Date Charbel Rodriguez, DO [address] [place] [phone] PCP - General Family Medicine 07/07/18 Charbel Cosby [address] [place] [address] Referring Orthopedics 07/18/22 Field Mechanic/Site Lead Relationship Specialty Start Date End Date Charbel Rodriguez, DO [address] [place] [phone] PCP - General Family Medicine 07/07/18 Charbel Cobsy [address] [place] [address] Referring Orthopedics 07/18/22 Field Mechanic/Site Lead Relationship Specialty Start Date End Date Charbel Rodriguez, DO [address] [place] [phone] PCP - [facility] 07/07/18 Charbel Cosby [address] [place] [address] Referring Orthopedics 07/18/22 Field Mechanic/Site Lead Relationship Specialty Start Date End Date Charbel Rodriguez, DO [address] [place] [phone] PCP - [facility] 07/07/18 Charbel Cosby [address] [place] [address] Referring Orthopedics 07/18/22 Field Mechanic/Site Lead Relationship Specialty Start Date End Date Charbel Rodriguez, DO [address] [place] [address] PCP - [facility] Medicine 07/07/18 Charbel Cosby [address] [place] [address] Referring Orthopedics 07/18/22 Field Mechanic/Site Lead Relationship Specialty Start Date End Date Charbel Rodriguez, DO [address] [place] [address] PCP - General Family Medicine 07/07/18 Charbel Cosby [address] [place] [address] Referring Orthopedics 07/18/22 Field Mechanic/Site Lead Relationship Specialty Start Date End Date Charbel Rodriguez DO [address] [place] [address] PCP - General Family Medicine 07/07/18 Charbel Cosby [address] [place] [phone] Referring Orthopedics 07/18/22 Field Mechanic/Site Lead Relationship Specialty Start Date End Date Charbel Rodriguez DO [address] [place] [address] PCP - General [facility] Medicine 07/07/18 Chrabel Cosby [address] [place] [address] Referring Orthopedics 07/18/22 Goals (unrecognized section and [...] prosecute any alcohol or drug abuse patient.[facility] the event this information is protected by the Federal Confidentiality of Alcohol and Drug Abuse Patient Records regulations: The Federal rules restrict any use of the information to criminally investigate or prosecute any alcohol or drug abuse patient.[facility] the event this information is protected by the Federal Confidentiality of Alcohol and Drug Abuse Patient Records regulations: The Federal rules restrict any use of the information to criminally investigate or prosecute any alcohol or drug abuse patient.[facility] the event this information is protected by the Federal Confidentiality of Alcohol and Drug Abuse Patient Records regulations: The Federal rules restrict any use of the information to criminally investigate or prosecute any alcohol or drug abuse patient.[facility] the event this information is protected by the Federal Confidentiality of Alcohol and Drug Abuse Patient Records regulations: The Federal rules restrict any use of the information to criminally investigate or prosecute any alcohol or drug abuse patient.[facility] the event this information is protected by the Federal Confidentiality of Alcohol and Drug Abuse Patient Records regulations: The Federal rules restrict any use of the information to criminally investigate or prosecute any alcohol or drug abuse patient.[facility] the event this information is protected by the Federal Confidentiality of Alcohol and Drug Abuse Patient Records regulations: The Federal rules restrict any use of the information to criminally investigate or prosecute any alcohol or drug abuse patient.[facility] the event this information is protected by the Federal Confidentiality of Alcohol and Drug Abuse Patient Records regulations: The Federal rules restrict any use of the information to criminally investigate or prosecute any alcohol or drug abuse patient.[facility] the event this information is protected by the Federal Confidentiality of Alcohol and Drug Abuse Patient Records regulations: The Federal rules restrict any use of the information to criminally investigate or prosecute any alcohol or drug abuse patient.[facility] the event this information is protected by the Federal Confidentiality of Alcohol and Drug Abuse Patient Records regulations: The Federal rules restrict any use of the information to criminally investigate or prosecute any alcohol or drug abuse patient.[facility] the event this information is protected by the Federal Confidentiality of Alcohol and Drug Abuse Patient Records regulations: The Federal rules restrict any use of the information to criminally investigate or prosecute any alcohol or drug abuse patient.[facility] HospitalIn the event this information is protected by the Federal Confidentiality of Alcohol and Drug Abuse Patient Records regulations: The Federal rules restrict any use of the information to criminally investigate or prosecute any alcohol or drug abuse patient.[facility] HospitalIn the event this information is protected by the Federal Confidentiality of Alcohol and Drug Abuse Patient Records regulations: The Federal rules restrict any use of the information to criminally investigate or prosecute any alcohol or drug abuse patient.[facility] HospitalIn the event this information is protected by the Federal Confidentiality of Alcohol and Drug Abuse Patient Records regulations: The Federal rules restrict any use of the information to criminally investigate or prosecute any alcohol or drug abuse patient.[facility] HospitalIn the event this information is protected by the Federal Confidentiality of Alcohol and Drug Abuse Patient Records regulations: The Federal rules restrict any use of the information to criminally investigate or prosecute any alcohol or drug abuse patient.[facility] HospitalIn the event this information is protected by the Federal Confidentiality of Alcohol and Drug Abuse Patient Records regulations: The Federal rules restrict any use of the information to criminally investigate or prosecute any alcohol or drug abuse patient.[facility] HospitalIn the event this information is protected by the Federal Confidentiality of Alcohol and Drug Abuse Patient Records regulations: The Federal rules restrict any use of the information to criminally investigate or prosecute any alcohol or drug abuse patient.[facility] HospitalIn the event this information is protected by the Federal Confidentiality of Alcohol and Drug Abuse Patient Records regulations: The Federal rules restrict any use of the information to criminally investigate or prosecute any alcohol or drug abuse patient.[facility] HospitalIn the event this information is protected by the Federal Confidentiality of Alcohol and Drug Abuse Patient Records regulations: The Federal rules restrict any use of the information to criminally investigate or prosecute any alcohol or drug abuse patient.[facility] HospitalIn the event this information is protected by the Federal Confidentiality of Alcohol and Drug Abuse Patient Records regulations: The Federal rules restrict any use of the information to criminally investigate or prosecute any alcohol or drug abuse patient.[facility] HospitalIn the event this information is protected by the Federal Confidentiality of Alcohol and Drug Abuse Patient Records regulations: The Federal rules restrict any use of the information to criminally investigate or prosecute any alcohol or drug abuse patient.[facility] Reason for Visit (unrecogniz ed section and content) Reason Comments Radio Gen RMP Specialty Diagnoses / Procedures Referred By Contac t Referred To Contact XR IMAGING Diagnoses Osteochondritis dissecans of right talus Procedures XR ANKLE GENERAL 3V AP/LAT/OBL RIGHT RADEX ANKLE COMPLETE MINIMUM [address] [place] [address] [place] [address] [place] [address] Referral ID Status Reason Start Date Expiration Date V isits Requested Visits Authorized [id number] Closed Auto-Generate d Referral 11/02/2022 11/30/2023 1 [...] Expiration Date V isits Requested Visits Authorized [id number] Closed Auto-Generate d Referral 01/02/2023 01/31/2024 1 [...] BE BASED ON THE PRIMARY CLINICAL RECORDS. [facility] Advisor Client [facility]. provides no warranty or guarantee of the accuracy or completeness of information in this document.
== END 2024-03-31 21:18 | disposition home or self-care (01) ==
LOC: LAB 21:17
PROVIDERS: PCP Family Medicine; Visit Provider Obstetrics & Gynecology
DX: Z34.93 Encounter for supervision of normal pregnancy, unspecified, third trimester (principal)
CPT/HCPCS: 87081

== ENCOUNTER 2024-04-13 05:14 | Inpatient (IN) | payer OTHER, SELFPAY ==
[2024-04-13] VITALS (31 sets, daily range): BP systolic 89–108; BP diastolic 44–79; PULSE 58–88; TEMP 36.2–37.2; O2SAT 96–98
--- OUTSIDE RECORDS SUMMARY | 2024-04-13 05:17 | XMS_ITS | CCD ---
Author Organization [facility] Care Team Providers Care Information Strategist Name Role Phone DO Charbel Rodriguez Primary Care Provider ANGELY Yee Emergency Provider [phone] Charbel Rodriguez DO Primary Care Provider Charbel Cosby Unavailable Charbel Rodriguez Unavailable TESSA [...] GIRROSEY, DR BARGER Attending Unavailable GIRROSEY, DR BAGRER Primary Care Unavailable GIRROSEY, DR BARGER Primary [...] Attending Unavailable CHARBEL RODRIGUEZ Primary Care Unavailable TSESA SANCHEZ Attending Unavailable CHARBEL RODRIGUEZ Primary Care [...] Attending Unavailable VISCI, SONIA A Attending Unavailable KIEPERT, JOHNSON Solitario Attending Unavailable VISCI, SONIA A Attending Unavailable VISCI, SONIA A Referring Unavailable VISCI, SONIA A Attending Unavailable VISCI, SONIA A Referring Unavailable VISCI, SONIA A Attending Unavailable VISCI, SONIA A Attending Unavailable VISCI, SONIA A Referring Unavailable IDANIA, JACK Attending Unavailable IDANIA, JACK Attending Unavailable IDANIA, JACK Attending Unavailable VISCI, SONIA A Referring Unavailable Allergies Allergy Classification Reported Allergen(s) Allergy Type Date of Onset Reaction(s) Facility (20 sources) Latex; Translations: [Latex] Propensity to adverse reactions 2 Rash, Rash, Blisters, rash,blisters [facility] (12 sources) Naproxen; Translations: [NAPROXEN] Drug Allergy 8 [facility] (14 sources) Naproxen; Translations: [Aleve] Drug Allergy 1 [facility] Repository (13 sources) Seasonal allergy Propensity to adverse reactions Unknown popAD [facility] [employer] Other (13 sources) Tomato Products Propensity to adverse reactions stomach upset popAD [facility] [employer] Other (1 source) natural latex rubber Drug allergy (disorder) 1 [facility] Repository (8 sources) Seasonale Drug allergy Unknown popAD [facility] [employer] Other (8 sources) Tomatoes Drug allergy stomach upset JOOR Other (5 sources) Phentermine Drug Allergy chest pain/ elevated BP JOOR Other Medications Current Medications Medication Drug Class(es) Dates Sig (Normalized) Sig (Original) brompheniramine maleate 0.4 mg/ml / dextromethorphan hydrobromide 2 mg/ml / pseudoephedrine hydrochloride 6 mg/ml oral solution (5 sources) alpha-Adrenergic Agonist, Uncompetitive C-onhemp-O-aspartat e Receptor Antagonist, Sigma-1 Agonist Start: 12-07-19 take 10 mL by mouth every six hours Txhrnwusy-Nktdwhwn-UB 30-2-10 MG/5ML 10 mL Orally every 6 [...] Comment on above: Take 1 capsule by [facility] four times daily. cyclobenzaprine hydrochloride 5 mg [...] tablet,disintegrating Discontinued 4 MG PO Q8H 10 3 November 29, 2017 1:00am December 02, 2017 [...] (BMI) 40.0-44.9, adult; Translations: [BMI 40.0-44.9, adult ([facility])] Onset: 08-14-2022 Chronic Other nutritional; endocrine; and [...] Test Name Value Interpretation Reference Range Facility [facility] 05-27-2023 [facility] Telephone (4CQ) EDITH WELLS ([id number]) 1995 F Date Time Provider Department 05/27/23 TESSA SANCHEZ 4CQ During your visit today, we recorded the following information about you: Glenis Gavin 05/27/2023 12:11 PM Signed Edith Wells is calling Tessa Sanchez MD today. Patient's therapist at [facility] is asking if she can continue PT but change it to 2 days on land and 0 days in water per week. Needs new order sent to [facility] in [place]. She did not have the fax number. [...] time off per provider's discretion. Patient will cone picker the note when ready. Call her to inform when she can pick it up. Call cell number below. May leave a message. No chief complaint on file. Patient has been identified by name and birthdate. Duration of symptoms: Person calling: self Call patient at: on cell and , it is OK to leave message [phone] (home) [phone] (cell) Was an appointment scheduled: No Closing statement: Results or non-symptom based questions: Thank you for calling [facility], your call will be returned within [...] - Fully Assessed Reason for Visit: Question [1327] Prescriptions as of 05/27/2023 - etodolac (LODINE-XL) [...] Status:Closed by LIZZETTE ROMEO RN on 05/27/23 [facility] CNCOon 04-17-2023 CNCO Letter Text [facility] CNOVon 04-17-2023 CNOV Office Visit (ADRIAAN ) EDITH WELLS ([id number]) 1995 F Date Time Provider Department 04/17/23 [...] and is of normal mood and affect. [facility] 07/02/2022 Gait Cycle: Normal Yes, Limp: [...] records. This note was partially generated using myinfoQ voice recognition system, and there may be [...] Order(s):CONSULT TO PHYSICAL THERAPY [9032] Order #: [id number]: 1 FUTURE Prescriptions as of 04/18/2023 - [...] Encounter Status:Closed by TESSA SANCHEZ on 04/18/23 [facility] CNOVon 03-13-2023 CNOV Office Visit (ORAVON ) EDITH WELLS ([id number]) 1995 F Date Time Provider Department 03/13/23 [...] records. This note was partially generated using myinfoQ voice recognition system, and there may be [...] Encounter Status:Closed by TESSA SANCHEZ on 03/13/23 [facility] CNPRosemary 02-28-2023 CNPN Telephone (ORAVON) PRISCILLAEDITH ([id number]) 1995 F Date Time Provider Department 02/28/23 TESSA SANCHEZ During your visit today, we recorded the following information about you: Margy Contreras Pss 02/28/2023 4:09 PM Signed Patient wants to get physical therapy at [facility] in [place]. Has been approved by [facility] and she can now schedule. Asking for recent therapy order from Dr Sanchez be faxed to [facility] in [place] at [phone]. Lizzette Romeo RN 03/01/2023 10:22 AM Signed Faxed today at 10:20am. Lizzette Romeo RN Allergies As of Date: 02/28/2023 (No Known Allergies) Date Reviewed: 01/02/2023 Reviewed by: Theresa Frederick MA - Fully Assessed Reason for Visit: Electronic Communication [100] Cmt: PT order faxed today Prescriptions as [...] Status:Closed by LIZZETTE [facility]OMEO RN [facility]ORAVON[facility] EDITH WELLS ([id number]) 1995 F Date Time Provider Department 01/10/23 TESSA SANCHEZ During your visit today, we recorded the following information about you: Ana Luisa Hernandez, SUE 01/10/2023 11:34 AM Signed Patient calling. Asking [...] back to the office to update CALL [phone] Autumn Clayton 01/10/2023 12:07 PM Signed Edith [...] calling: self Call patient at: at home [phone] (home) [phone] (cell) Was an appointment scheduled: No Closing statement: Results or non-symptom based questions: Thank you for calling [facility], your call will be returned within the next business day. Lizzette Romeo RN 01/11/2023 12:04 PM Signed Patient's note faxed today as requested Lizzette Arvizu Noguera 02/08/2023 4:15 PM Signed Patient calling in about papers she received in the mail. She does not know what they are or what she needs to do with them. Please call her at [phone]. Lizzette Romeo RN 02/11/2023 10:34 AM Signed [...] Reason for Visit: Return To Work Letter [7937] Prescriptions as of 02/11/2023 - etodolac (LODINE-XL) [...] Status:Closed by LIZZETTE ROMEO RN on 01/11/23 [facility] CNOVon 01-02-2023 CNOV Office Visit (ORAGNES ) PRISCILLAEDITH Bong ([id number]) 1995 F Date Time Provider Department 01/02/23 4:00 PM TESSA SANCHEZ During your visit today, we recorded the following information about you: Tessa Sanchez MD 01/02/2023 10:32 PM Signed Edith Bong Priscilla returns today to follow up on her [...] records. This note was partially generated using myinfoQ voice recognition system, and there may be some incorrect words, spellings, and punctuation that were not noted in checking the note before saving. Anetaibe Attestation: By signing my name below, I, Pippa Moss, attest that this documentation has been prepared under the direction and in the presence of Tessa Sanchez MD. Electronically Signed: alan Alarcon, January 02, 2023 4:30 PM I agree with the Chief Complaint, ROS, and Past Histories independently gathered by the clinical lan support specialist and the remaining scribed note accurately describes my personal service to the patient. Tessa Sanchez M.D. 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 - cyclobenzaprine (FLEXERIL) 5 (more content not included)... Normal [facility] XR ANKLE 3V AP/LAT/OBL RTon 01-02-2023 [...] malalignment is identified. Joint spaces are maintained. [employer] Barista: PSCB Transcribe Date/Time: Jan 02 2023 4:17P Dictated by : RC CIFUENTES MD This examination was interpreted and the report reviewed and electronically signed by: RC CIFUENTES MD on Jan 02 2023 4:18PM EST [id number] N Normal [facility] XR ANKLE GENERAL 3V AP/LAT/O BL RIGHTon 01-02-2023 [facility] 12-21-2022 CNCO Letter Text Normal [facility] CNPNon 12-21-2022 CNPN Telephone (ORAVON) EDITH WELLS ([id number]) 1995 F Date Time Provider Department 12/21/22 [...] Encounter Status:Closed by VINAY CORONA on 12/21/22 [facility]19[facility]2022 [facility] EDITH WELLS ([id number]) 1995 F Date Time Provider Department 12/19/22 [...] to NT to get symptom details. Autumn Clayton [facility] Patient Operations Support Team (POST) Please note: [...] that prevented her form having PT. CALL [phone] Vinay Corona RN 12/21/2022 5:35 PM Signed This RN called and spoke with patient. Letter sent via Rawbots she report she received it. 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 She was grateful for the call. Vinay [...] Encounter Status:Closed by VINAY CORONA on 12/21/22 [facility] CNOVon 11-14-2022 CNOV Office Visit (ORAVON ) EDITH WELLS ([id number]) 1995 F Date Time Provider Department 11/14/22 [...] Status:Closed by TESSA SANCHEZ on 11/14/22 Normal [facility] EBV EARLY ANTIGEN (IgG)on EBV Early Antigen Ab, IgG <9.0 Normal 0.0-8.9 [facility] Comment on above: Result Comment: Nega tive < 9.0 Equivocal 9.0 - 10.9 Positive >10.9 Performed By: #### E BVEARL #### [facility] [address] [place] [address] Dr. Judah Phipps LU-POSADAS VIRUS (EBV) AB PROFILEon 11-14-2022 EBV Ab VCA, IgG 370.0 U/mL Critically high 0.0-17.9 [facility] Comment on above: Result Comment: Nega tive <18.0 Equivocal 18.0 - 21.9 Positive >21.9 Performed By: #### E BVPROF #### [facility] [address] [place] [address] Dr. Judah Phipps EBV Ab VCA, IgM <36.0 Normal 0.0-35.9 [facility] Comment on above: Result Comment: Nega tive <36.0 Equivocal 36.0 - 43.9 Positive >43.9 Performed By: #### E BVPROF #### [facility] [address] [place] [address] Dr. Judah Phipps EBV Nuclear Antigen Ab, IgG 224.0 U/mL Critically high 0.0-17.9 [facility] Comment on above: Result Comment: Nega tive <18.0 Equivocal 18.0 - 21.9 Positive >21.9 Performed By: #### E BVPROF #### [facility] [address] [place] [address] Dr. Judah Phipps Interpretation: Comment Normal [facility] Comment on above: Result Comment: EBV Interpretation [...] EBNA. Performed By: #### E BVPROF #### [facility] [address] [place] [address] Dr. Judah Phipps XR ANKLE 3V AP/LAT/OBL [...] dislocation. IMPRESSION: Expected postoperative findings as described. [employer] Barista: ANYA Transcribe Date/Time: Nov 14 2022 6:35P Dictated by : TINA VEGA MD This examination was interpreted and the report reviewed and electronically signed by: TINA VEGA MD on Nov 15 2022 6:27AM EST [id number] N Normal [facility] XR ANKLE GENERAL 3V AP/LAT/O BL RIGHTon 11-14-2022 [facility] AMYLASEon 11-13-2022 Amylase [Catalytic activity/Vol] 42 U/L Normal 25-115 [facility] Comment on above: Performed By: #### L IPA, CMP, SYEDA, PREGQNT #### [facility] [address] [address] [address] Judah Phipps CBC AUTO DIFFon 11-13-2022 BASO # 0.0 103/ul Normal 0.0-0.1 [facility] Comment on above: Performed By: #### L IPA, CMP, SYEDA, PREGQNT #### [facility] [address] [address] [address] Judah Phipps Basophils/100 WBC (Bld) 0.3 % Normal 0.2-2.0 [facility] Comment on above: Performed By: #### L IPA, CMP, SYEDA, PREGQNT #### [facility] [address] [address] [address] Judah Phipps EO # 0.5 103/ul Normal 0.0-0.7 [facility] Comment on above: Performed By: #### L IPA, CMP, SYEDA, PREGQNT #### [facility] [address] [place] [address] Dr. Judah Phipps Eosinophils/100 WBC (Bld) 4.0 % Normal 0.9-7.0 [facility] Comment on above: Performed By: #### L IPA, CMP, SYEDA, PREGQNT #### [facility] [address] [place] [address] Dr. Judah Phipps Erythrocyte distribution width (RBC) [Ratio] 13.2 % Normal 11.0-15.0 [facility] Comment on above: Performed By: #### L IPA, CMP, SYEDA, PREGQNT #### [facility] [address] [place] [address] Dr. Judah Phipps Hematocrit (Bld) [Volume fraction] 37.2 % Normal 36.0-48.0 [facility] Comment on above: Performed By: #### L IPA, CMP, SYEDA, PREGQNT #### [facility] [address] [place] [address] Dr. Judah Phipps Hemoglobin (Bld) [Mass/Vol] 12.5 g/dL Normal 12.0-16.0 [facility] Comment on above: Performed By: #### L IPA, CMP, SYEDA, PREGQNT #### [facility] [address] [place] [address] Dr. Judah Phipps IG # 0.04 10e3/ul Critically high 0.00-0.03 [facility] Comment on above: Performed By: #### L IPA, CMP, SYEDA, PREGQNT #### [facility] [address] [place] [address] Dr. Judah Phipps IG % 0.3 % Normal 0.0-0.5 [facility] Comment on above: Performed By: #### L IPA, CMP, SYEDA, PREGQNT #### [facility] [address] [place] [address] Dr. Judah Phipps LYMPH # 4.8 103/ul Critically high 1.2-3.8 [facility] Comment on above: Performed By: #### L IPA, CMP, SYEDA, PREGQNT #### [facility] [address] [place] [address] Dr. Judah Phipps Lymphocytes/100 WBC (Bld) 39.9 % Normal 20.5-60.0 [facility] Comment on above: Performed By: #### L IPA, CMP, SYEDA, PREGQNT #### [facility] [address] [place] [address] Dr. Judah Phipps MANUAL DIFF REQ NO Normal [facility] Comment on above: Performed By: #### L IPA, CMP, SYEDA, PREGQNT #### [facility] [address] [place] [address] Dr. Judah Phipps MCH (RBC) [Entitic mass] 30.5 pg Normal 26.7-34.0 [facility] Comment on above: Performed By: #### L IPA, CMP, SYEDA, PREGQNT #### [facility] [address] [place] [address] Dr. Judah Phipps MCHC (RBC) [Mass/Vol] 33.6 g/dL Normal 29.9-35.2 [facility] Comment on above: Performed By: #### L IPA, CMP, SYEDA, PREGQNT #### [facility] [address] [place] [address] Dr. Judah Phipps MCV (RBC) [Entitic vol] 90.7 fL Normal 81.0-99.0 [facility] Comment on above: Performed By: #### L IPA, CMP, SYEDA, PREGQNT #### [facility] [address] [place] [address] Dr. Judah Phipps MONO # 0.7 103/ul Normal 0.3-0.8 [facility] Comment on above: Performed By: #### L IPA, CMP, SYEDA, PREGQNT #### [facility] [address] [place] [address] Dr. Judah Phipps Monocytes/100 WBC (Bld) 6.1 % Normal 1.7-12.0 [facility] Comment on above: Performed By: #### L IPA, CMP, SYEDA, PREGQNT #### [facility] [address] [address] [address] Judah Phipps NEUT # 5.9 103/ul Normal 1.4-6.5 [facility] Comment on above: Performed By: #### L IPA, CMP, SYEDA, PREGQNT #### [facility] [address] [place] [address] Dr. Judah Phipps Neutrophils/100 WBC (Bld) 49.4 % Normal 43.0-75.0 [facility] Comment on above: Performed By: #### L IPA, CMP, SYEDA, PREGQNT #### [facility] [address] [place] [address] Dr. Judah Phipps Platelet mean volume (Bld) [Entitic vol] 9.2 fL Critically low 9.5-13.5 [facility] Comment on above: Performed By: #### L IPA, CMP, SYEDA, PREGQNT #### [facility] [address] [place] [address] Dr. Judah Phipps PLT 408 103/ul Normal 150-450 [facility] Comment on above: Performed By: #### L IPA, CMP, SYEDA, PREGQNT #### [facility] [address] [place] [address] Dr. Judah Phipps RBC 4.10 106/ul Critically low 4.20-5.40 [facility] Comment on above: Performed By: #### L IPA, CMP, SYEDA, PREGQNT #### [facility] [address] [place] [address] Dr. Judah Phipsp WBC 12.0 103/ul Critically high 4.0-11.0 [facility] Comment on above: Performed By: #### L IPA, CMP, SYEDA, PREGQNT #### [facility] [address] [place] [address] Dr. Judah Phipps LIPASEon 11-13-2022 Lipase [Catalytic activity/Vol] 161.0 U/L Normal 73.0-393.0 [facility] Comment on above: Performed By: #### L IPA, CMP, SYEDA, PREGQNT #### [facility] [address] [place] [address] Dr. Judah Phipps PREG QUANT HCGon 11-13-2022 HCG QUANT <1 Normal [facility] Comment on above: Performed By: #### L IPA, CMP, SYEDA, PREGQNT #### [facility] [address] [place] [address] Dr. Judah Phipps HCG RANGE SEE BELOW Normal [facility] Comment on above: Result Comment: 5-50 0.2-1 WEEK 50-500 1-2 WEEKS 100-5,000 2-3 WEEKS 500-10,000 3-4 WEEKS 1,000-50,000 4-5 WEEKS 10,000-100,000 5-6 WEEKS 15,000-200,000 6-8 WEEKS 10,000-100,000 2-3 MONTHS Performed By: #### L IPA, CMP, SYEDA, PREGQNT #### [facility] [address] [place] [address] Dr. Judah Phipps PROF 14(COMP METB)on 023 Albumin [Mass/Vol] 3.6 g/dL Normal 3.4-5.0 [facility] Comment on above: Performed By: #### L IPA, CMP, SYEDA, PREGQNT #### [facility] [address] [place] [address] Dr. Judah Phipps Albumin/Globulin [Mass ratio] 1.1 {ratio} Normal [facility] Comment on above: Performed By: #### L IPA, CMP, SYEDA, PREGQNT #### [facility] [address] [place] [address] Dr. Judah Phipps ALP [Catalytic activity/Vol] 64 U/L Normal 46-116 [facility] Comment on above: Performed By: #### L IPA, CMP, SYEDA, PREGQNT #### [facility] [address] [place] [address] Dr. Judah Phipps ALT [Catalytic activity/Vol] 9 U/L Critically low 14-59 [facility] Comment on above: Performed By: #### L IPA, CMP, SYEDA, PREGQNT #### [facility] [address] [address] [address] Judah Phipps Anion gap [Moles/Vol] 11.3 mmol/L Normal [facility] Comment on above: Performed By: #### L IPA, CMP, SYEDA, PREGQNT #### [facility] [address] [address] [address] Judah Phipps AST [Catalytic activity/Vol] 10 U/L Critically low 15-37 [facility] Comment on above: Performed By: #### L IPA, CMP, SYEDA, PREGQNT #### [facility] [address] [address] [address] Judah Phipps Bilirubin [Mass/Vol] 0.2 mg/dL Normal 0.2-1.0 [facility] Comment on above: Performed By: #### L IPA, CMP, SYEDA, PREGQNT #### [facility] [address] [address] [address] Judah Phipps Calcium [Mass/Vol] 8.9 mg/dL Normal 8.5-10.1 [facility] Comment on above: Performed By: #### L IPA, CMP, SYEDA, PREGQNT #### [facility] [address] [address] [address] Judah Phipps Chloride [Moles/Vol] 102 mmol/L Normal 98-107 [facility] Comment on above: Performed By: #### L IPA, CMP, SYEDA, PREGQNT #### [facility] [address] [address] [address] Judah Phipps CO2 [Moles/Vol] 28.5 mmol/L Normal 21.0-32.0 [facility] Comment on above: Performed By: #### L IPA, CMP, SYEDA, PREGQNT #### [facility] [address] [place] [address] Dr. Judah Phipps Creatinine [Mass/Vol] 0.65 mg/dL Normal 0.55-1.02 [facility] Comment on above: Performed By: #### L IPA, CMP, SYEDA, PREGQNT #### [facility] [address] [address] [address] Judah Phipps EGFR-AF SENEGALESE >60 Normal >=60 [facility] Comment on above: Performed By: #### L IPA, CMP, SYEAD, PREGQNT #### [facility] [address] [address] [address] Judah Phipps EGFR-NON AF SENEGALESE >60 Normal >=60 [facility] Comment on above: Performed By: #### L IPA, CMP, SYEDA, PREGQNT #### [facility] [address] [address] [address] Judah Phipps Globulin (S) [Mass/Vol] 3.4 g/dL Normal [facility] Comment on above: Performed By: #### L IPA, CMP, SYEDA, PREGQNT #### [facility] [address] [address] [address] Judah Phipps Glucose [Mass/Vol] 100 mg/dL Normal 74-106 [facility] Comment on above: Performed By: #### L IPA, CMP, YSEDA, PREGQNT #### [facility] [address] [address] [address] Judah Phipps Potassium [Moles/Vol] 3.8 mmol/L Normal 3.5-5.1 [facility] Comment on above: Performed By: #### L IPA, CMP, SYEDA, PREGQNT #### [facility] [address] [address] [address] Judah Phipps Protein [Mass/Vol] 7.0 g/dL Normal 6.4-8.2 [facility] Comment on above: Performed By: #### L IPA, CMP, SYEDA, PREGQNT #### [facility] [address] [address] [address] Judah Phipps Sodium [Moles/Vol] 138 mmol/L Normal 136-145 [facility] Comment on above: Performed By: #### L IPA, CMP, SYEDA, PREGQNT #### [facility] [address] [address] [address] Judah Phipps Urea nitrogen [Mass/Vol] 15.0 mg/dL Normal 7.0-18.0 [facility] Comment on above: Performed By: #### L IPA, CMP, SYEDA, PREGQNT #### [facility] [address] [place] [address] Dr. Judah Phipps Urea nitrogen/Creatinine [Mass ratio] 23.1 mg/mg Normal [facility] Comment on above: Performed By: #### L IPA, CMP, SYEDA, PREGQNT #### [facility] [address] [place] [address] Dr. Judah Phipps RESPIRATORY PANEL PLUSon Adenovirus Not detected Normal NOT DETECTED [facility] Comment on above: Performed By: #### R SPLUS #### [facility] [address] [place] [address] Dr. Judah Dick. Parapertusis Not detected Normal NOT DETECTED [facility] Comment on above: Performed By: #### R SPLUS #### [facility] [facility] [address] [place] [address] Dr. Judah Dick. Pertussis Not detected Normal NOT DETECTED [facility] Comment on above: Performed By: #### R SPLUS #### [facility] [address] [place] [address] Dr. Judah Phipps Chlamydia Pneumoniae Not detected Normal NOT DETECTED [facility] Comment on above: Performed By: #### R SPLUS #### [facility] [address] [place] [address] Dr. Judah Phipps Coronavirus 229E Not detected Normal NOT DETECTED [facility] Comment on above: Performed By: #### R SPLUS #### [facility] [address] [place] [address] Dr. Judah Phipps Coronavirus HKU1 Not detected Normal NOT DETECTED [facility] Comment on above: Performed By: #### R SPLUS #### [facility] [address] [place] [address] Dr. Judah Phipps Coronavirus NL63 Not detected Normal NOT DETECTED [facility] Comment on above: Performed By: #### R SPLUS #### [facility] [address] [place] [address] Dr. Judah Phipps Coronavirus OC43 Not detected Normal NOT DETECTED [facility] Comment on above: Performed By: #### R SPLUS #### [facility] [address] [address] [address] Judah Phipps Influenza A H1 2009 Not detected Normal NOT DETECTED [facility] Comment on above: Performed By: #### R SPLUS #### [facility] [address] [address] [address] Judah Phipps Influenza A H3 Not detected Normal NOT DETECTED [facility] Comment on above: Performed By: #### R SPLUS #### [facility] [address] [address] [address] Judah Phipps Influenza B Not detected Normal NOT DETECTED [facility] Comment on above: Performed By: #### R SPLUS #### [facility] [address] [address] [address] Judah Phipps Metapneumovirus Not detected Normal NOT DETECTED [facility] Comment on above: Performed By: #### R SPLUS #### [facility] [address] [place] [address] Dr. Judah Phipps Mycoplas. Pneumoniae Not detected Normal NOT DETECTED [facility] Comment on above: Performed By: #### R SPLUS #### [facility] [address] [address] [address] Judah Phipps Parainfluenza 1 Not detected Normal NOT DETECTED [facility] Comment on above: Performed By: #### R SPLUS #### [facility] [address] [address] [address] Judah Phipps Parainfluenza 2 Not detected Normal NOT DETECTED [facility] Comment on above: Performed By: #### R SPLUS #### [facility] [address] [address] [address] Judah Phipps Parainfluenza 3 Not detected Normal NOT DETECTED [facility] Comment on above: Performed By: #### R SPLUS #### [facility] [address] [address] [address] Judah Phipps Parainfluenza 4 Not detected Normal NOT DETECTED [facility] Comment on above: Performed By: #### R SPLUS #### [facility] [address] [place] [address] Dr. Judah Phipps Rhino/Enterovirus Not detected Normal NOT DETECTED [facility] Comment on above: Performed By: #### R SPLUS #### [facility] [address] [place] [address] Dr. Judah Phipps RP2 Header 1 RESPIRATORY PANEL: VIRUSES Normal [facility] Comment on above: Performed By: #### R SPLUS #### [facility] [address] [place] [address] Dr. Judah Phipps RP2 Header 2 RESPIRATORY PANEL: BACTERIA Normal [facility] Comment on above: Performed By: #### R SPLUS #### [facility] [address] [place] [address] Dr. Judah Phipps RSV Not detected Normal NOT DETECTED [facility] Comment on above: Performed By: #### R SPLUS #### [facility] [address] [place] [address] Dr. Judah Phipps SARS-CoV-2 (COVID-19) RNA HAROLDO+probe Ql (Unsp spec) Not detected Normal NOT DETECTED [facility] Comment on above: Performed By: #### R SPLUS #### [facility] [address] [place] [address] Dr. Judah Prince 10-10-2022 CNOV Office Visit (ADRIANA ) EDITH WELLS ([id number]) 1995 F Date Time Provider Department 10/10/22 [...] Encounter Status:Closed by [facility] EDITH WELLS ([id number]) 1995 F Date Time Provider Department 09/26/22 TESSA SANCHEZ ORAVON During your visit today, we recorded the following information about you: Rita Nitin [facility] 09/26/2022 11:18 AM Signed Patient requesting to speak with provider or staff in regards to right leg pain. She is having pain from her toes up to her knee. Her right ankle surgery was 08/28/22 and questions if pain is normal? Patient is to start therapy today at 6 pm. Patient requesting a return call through #[phone] or #[phone]. The second number is her boyfriends line, Elias. Patient gives okay to leave message with Elias if needed. Please advise. Lizzette Romeo RN 09/28/2022 2:23 PM Signed I spoke with Kathie on 09/26/22. Lizzette Romeo RN Allergies As of Date: 09/26/2022 (No Known Allergies) Date Reviewed: 09/12/2022 Reviewed by: Lizzette Romeo RN - Fully Assessed Reason for Visit: Patient Question [5693] Prescriptions as of 09/28/2022 - predniSONE (DELTASONE) [...] Status:Closed by LIZZETTE ROMEO RN on 09/28/22 [facility] CNOVon 09-12-2022 CNOV Office Visit (ORAVON ) EDITH WELLS ([id number]) 1995 F Date Time Provider Department 09/12/22 [...] Order(s):CONSULT TO PHYSICAL THERAPY [9032] Order #: [id number]: 1 FUTURE Prescriptions as of 09/12/2022 - [...] Encounter Status:Closed by TESSA SANCHEZ on 09/12/22 [facility] CNOV Office Visit (ORAVON ) EDITH WELLS ([id number]) 1995 F Date Time Provider Department 09/12/22 3:00 PM CAST TECH AGNES ADRIANA During your visit today, we recorded the following information about you: Alfred Campo Cast 09/12/2022 4:10 PM Signed PT ASSESSMENT - CASTING ROOM Edith presents for cast removal. Applied pneumatic aircast walker(HAD PRIOR TO SURGERY) to Right leg non-weight bearing Patient has been instructed in Care of boot.. Alfred Campo Cast Beeper: [id number] Allergies As of Date: 09/12/2022 (No Known [...] Encounter Status:Closed by ALFRED KEARNS on 09/12/22 [facility] Shayy 09-03-2022 CNPN Telephone (ORAVON) EDITH WELLS ([id number]) 1995 F Date Time Provider Department 09/03/22 [...] Status:Closed by AMPARO COYLE RN on 09/14/22 [facility] 09-02-2022 CNPN Telephone (SICU) EDITH WELLS ([id number]) 1995 F Date Time Provider Department 09/02/22 [...] Fully Assessed Reason for Visit: Patient Question [1247] Prescriptions as of 09/02/2022 - acetaminophen (TYLENOL) [...] Encounter Status:Closed by EYAD SAMUELS on 09/02/22 [facility] 08-29-2022 [facility] Nurse Visit (ADRIANA) EDITH WELLS ([id number]) 1995 F Date Time Provider Department 08/29/22 3:45 PM NURSE ORTH [facility] During your visit today, [...] Status:Closed by LIZZETTE ROMEO RN on 09/03/22 [facility] CNOVon 08-29-2022 CNOV Office Visit (ORAVON ) EDITH WELLS ([id number]) 1995 F Date Time Provider Department 08/29/22 3:00 PM CAST TECH AGNES WRIGHT During your visit today, we recorded the following information about you: Alfred Campo Cast 08/29/2022 3:44 PM Signed PT ASSESSMENT - CASTING ROOM Edith presents for Application of cast. Applied short cast: to Right leg non-weight bearing Patient has been instructed in Care of cast.. Alfred Campo Cast Beeper: [phone] Allergies As of Date: 08/29/2022 (No Known [...] Encounter Status:Closed by ALFRED KEARNS on 08/29/22 [facility] ANES POSTPROC EVALon 022 ANES POSTPROC EVAL HNO ID: [id number] Author: Mike Alcantar MD Service: Anesthesiology Author Type: Anesthesiologist Type: Anesthesia Postprocedure Evaluation Filed: 08/28/2022 1:05 PM Note Text: POST ANESTHESIA EVALUATION NOTE : 1995 Procedure Summary Date: 08/28/22 Room / Location: [address] Anesthesia Start: 1029 Anesthesia Stop: 1149 [...] August 28, 2022 TIME: 1:04 PM CSN: [id number] [facility] ANES PRE-OPon 08-28-2022 ANES PRE-OP HNO ID: [id number] Author: Mike Alcantar MD Service: Anesthesiology Author Type: Anesthesiologist Type: Anesthesia Preprocedure Evaluation Filed: 08/28/2022 9:33 AM Note Text: ANESTHESIOLOGY DAY OF SURGERY NOTE : 1995 Procedure Information Date/Time: 08/28/22 1000 Procedure: 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 Surgeons: Tessa Sanchez MD Estimated body mass [...] and consent discussed: yes. Patient / Responsible Alliance Party agrees to proceed: yes Patient / Surrogate agrees to blood products: blood products not planned Significant changes in the patient condition since the History and Physical, not otherwise documented in primary service progress note: no. Potential Anesthesia issues that may suggest increased risk of complications or contraindication to planned procedure: none. Vitals Value Taken Time BP 144/77 08/28/22 0930 Pulse 59 08/28/22 0931 Resp 16 08/28/22 0930 Temp 36.4 ?C (97.5 ?F) 08/28/22 09 SpO2 97 % 08/28/22 0931 Vitals shown include unvalidated device data. Facility-Administered [...] August 28, 2022 TIME: 9:32 AM CSN: [id number] [facility] OPERATIVE NOon 08-28-2022 OPERATIVE NO HNO ID: [id number] Author: Tessa Sanchez MD Service: Orthopaedic Surgery Author Type: Physician Type: Operative Report Filed: 08/28/2022 1:09 PM Note Text: OPERATIVE REPORT LOG ID: [id number] Surgery Date: 08/28/2022 Incision/Procedure Start Time: 11:01 AM Incision Close/Procedure End Time: 11:32 AM Procedure Performed: Procedure(s) (LRB): ARTHROSCOPY ANKLE EXCISION OSTEOCHONDRAL DEFECT MEDIAL TALUS Microfracture of talus Synovectomy Surgeon monitored fluoroscopy Surgeon(s)/Procedural ist(s) and Supervisor Rough End(s): Surgeon(s) and Role: * Tessa Sanchez MD - Primary Physician Supervisor Rough End: Mercedes Gale PA-C, was essential in patient [...] applied. The patient was taken to the in good condition. The PA helped with all aspects of the case. There was no qualified resident to assist SIGNATURE: Tessa Sanchez MD PATIENT NAME: Edith Wells DATE: August 28, 2022 TIME: 1:04 PM PHONE: [phone] Normal [facility] CBC panel Auto (Bld)on 08-24 Erythrocyte distribution width (RBC) [Ratio] 13.3 % Normal 11.5-15.0 [facility] Comment on above: Order Comment: Speci men Type: BLOOD SPECIMENOrdering Facility: [facility] Address: [address] [place] [address] [address] [id number] Performed By: #### 5 8410-2 ####[facility] LABCLIA [id number] [place] [address] Hematocrit (Bld) [Volume fraction] 37.6 % Normal 36.0-46.0 [facility] Comment on above: Order Comment: Speci men Type: BLOOD SPECIMENOrdering Facility: [facility] Address: [address] [place] [address] Performed By: #### 5 8410-2 ####[facility] LABCLIA [id number] [place] [address] Hemoglobin (Bld) [Mass/Vol] 12.4 g/dL Normal 11.5-15.5 [facility] Comment on above: Order Comment: Speci men Type: BLOOD SPECIMENOrdering Facility: [facility] Address: [address] [place] [address] Performed By: #### 5 8410-2 ####[facility] LABCLIA [id number] [place] [address] MCH (RBC) [Entitic mass] 30.4 pg Normal 26.0-34.0 [facility] Comment on above: Order Comment: Speci men Type: BLOOD SPECIMENOrdering Facility: [facility] Address: [address] [place] [address] Performed By: #### 5 8410-2 ####[facility] LABCLIA [id number] [place] [address] MCHC (RBC) [Mass/Vol] 33.0 g/dL Normal 30.5-36.0 [facility] Comment on above: Order Comment: Speci men Type: BLOOD SPECIMENOrdering Facility: [facility] Address: [address] [place] [address] Performed By: #### 5 8410-2 ####[facility] LABCLIA [id number] [place] [address] MCV (RBC) [Entitic vol] 92.2 fL Normal 80.0-100.0 [facility] Comment on above: Order Comment: Speci men Type: BLOOD SPECIMENOrdering Facility: [facility] Address: [address] [place], [place] [address] Performed By: #### 5 8410-2 ####[facility] LABCLIA [id number] [place] [address] Nucleated RBC (Bld) [#/Vol] 10*3/uL Normal <0.01 [facility] Comment on above: Order Comment: Speci men Type: BLOOD SPECIMENOrdering Facility: [facility] Address: [address] [place], [place] [address] Performed By: #### 5 8410-2 ####[facility] LABCLIA [id number] [place] [address] Platelet mean volume (Bld) [Entitic vol] 9.3 fL Normal 9.0-12.7 [facility] Comment on above: Order Comment: Speci men Type: BLOOD SPECIMENOrdering Facility: [facility] Address: [address] [place], [place] [address] Performed By: #### 5 8410-2 ####[facility] LABCLIA [id number] [place] [address] Platelets (Bld) [#/Vol] 386 10*3/uL Normal 150-400 [facility] Comment on above: Order Comment: Speci men Type: BLOOD SPECIMENOrdering Facility: [facility] Address: [address] [place], [place] [address] Performed By: #### 5 8410-2 ####[facility] LABCLIA [id number] [place] [address] RBC (Bld) [#/Vol] 4.08 10*6/uL Normal 3.90-5.20 [facility] Comment on above: Order Comment: Speci men Type: BLOOD SPECIMENOrdering Facility: [facility] Address: [address] [place], [place] [address] Performed By: #### 5 8410-2 ####[facility] LABCLIA [id number] [place] [address] WBC (Bld) [#/Vol] 8.69 10*3/uL Normal 3.70-11.00 [facility] Comment on above: Order Comment: Speci men Type: BLOOD SPECIMENOrdering Facility: [facility] Address: [address] [place], [place] [address] [address] Performed By: #### 5 8410-2 ####[facility] LABCLIA [id number] [place] [address] Erythrocyte distribution width (RBC) [Ratio] 13.3 % 11.5 - 15.0 % [facility] Hematocrit (Bld) [Volume fraction] 37.6 % 36.0 - 46.0 % [facility] Hemoglobin (Bld) [Mass/Vol] 12.4 g/dL 11.5 - 15.5 g/dL [facility] MCH (RBC) [Entitic mass] 30.4 pg 26.0 - 34.0 pg [facility] MCHC (RBC) [Mass/Vol] 33.0 g/dL 30.5 - 36.0 g/dL [facility] MCV (RBC) [Entitic vol] 92.2 fL 80.0 - 100.0 fL [facility] Nucleated RBC (Bld) [#/Vol] <0.01 k/uL [facility] Platelet mean volume (Bld) [Entitic vol] 9.3 fL 9.0 - 12.7 fL [facility] Platelets (Bld) [#/Vol] 386 10*3/uL 150 - 400 k/uL [facility] RBC (Bld) [#/Vol] 4.08 10*6/uL 3.90 - 5.2 0 m/uL [facility] WBC (Bld) [#/Vol] 8.69 10*3/uL 3.70 - 11. 00 k/uL [facility] Basic metabolic 2000 panelon 08-15-2022 Anion gap [Moles/Vol] 8 mmol/L Low 9-18 [facility] Comment on above: Order Comment: Speci men Type: BLOOD SPECIMENOrdering Facility: [facility] Address: [address] [place] [address] Performed By: #### 2 4321-2 ####[facility] LABCLIA [id number] [place] [address] Calcium [Mass/Vol] 9.4 mg/dL Normal 8.5-10.2 [facility] Comment on above: Order Comment: Speci men Type: BLOOD SPECIMENOrdering Facility: [facility] Address: [address] [place] [address] Performed By: #### 2 4321-2 ####[facility] LABCLIA [id number] [place] [address] Chloride [Moles/Vol] 104 mmol/L Normal 97-105 [facility] Comment on above: Order Comment: Speci men Type: BLOOD SPECIMENOrdering Facility: [facility] Address: [address] [place] [address] Performed By: #### 2 4321-2 ####[facility] LABCLIA [id number] [place] [address] CO2 [Moles/Vol] 25 mmol/L Normal 22-30 [facility] Comment on above: Order Comment: Speci men Type: BLOOD SPECIMENOrdering Facility: [facility] Address: [address] [place] [address] Performed By: #### 2 4321-2 ####[facility] LABCLIA [id number] [place] [address] Creatinine [Mass/Vol] 0.60 mg/dL Normal 0.58-0.96 [facility] Comment on above: Order Comment: Speci men Type: BLOOD SPECIMENOrdering Facility: [facility] Address: [address] [place] [address] Performed By: #### 2 4321-2 ####[facility] LABCLIA [id number] [place] [address] ESTIMATED GLOMERULAR FILTRATION RATE 126 mL/min/1.73m??? Normal >=60 [facility] Comment on above: Order Comment: Getachew hamilton Type: BLOOD SPECIMENOrdering Facility: [facility] Address: [address] [place] [address] Result Comment: Brandy mated Glomerular Filtration Rate [...] actual GFR. Performed By: #### 2 4321-2 ####[facility] LABCLIA [id number] [place] [address] Glucose [Mass/Vol] 109 mg/dL High 74-99 [facility] Comment on above: Order Comment: Getachew hamilton Type: BLOOD SPECIMENOrdering Facility: [facility] Address: [address] [place] [address] Result Comment: The [place] Diabetes Association (ADA) provides guidance for cutoff [...] Standards of Medical Care in Diabetes 2016, [place] Diabetes Association. Diabetes Care. 2016.39(Suppl 1). Performed By: #### 2 4321-2 ####[facility] LABCLIA [id number] [place] [address] Potassium [Moles/Vol] 3.8 mmol/L Normal 3.7-5.1 [facility] Comment on above: Order Comment: Getachew hamilton Type: BLOOD SPECIMENOrdering Facility: [facility] Address: [address] [place] [address] Performed By: #### 2 4321-2 ####[facility] LABCLIA [id number] [place] [address] Sodium [Moles/Vol] 137 mmol/L Normal 136-144 [facility] Comment on above: Order Comment: Speci men Type: BLOOD SPECIMENOrdering Facility: [facility] Address: [address] [place] [address] Performed By: #### 2 4321-2 ####[facility] LABCLIA [id number] [place] [address] Urea nitrogen [Mass/Vol] 20 mg/dL Normal 7-21 [facility] Comment on above: Order Comment: Speci men Type: BLOOD SPECIMENOrdering Facility: [facility] Address: [address] [place] [address] Performed By: #### 2 4321-2 ####[facility] LABCLIA [id number] [place] [address] CBC panel Auto (Bld)on 08-15 Erythrocyte distribution width (RBC) [Ratio] 13.5 % Normal 11.5-15.0 [facility] Comment on above: Order Comment: Speci men Type: BLOOD SPECIMENOrdering Facility: [facility] Address: [address] [place] [address] Performed By: #### 5 8410-2 ####[facility] LABCLIA [id number] [place] [address] Hematocrit (Bld) [Volume fraction] 39.9 % Normal 36.0-46.0 [facility] Comment on above: Order Comment: Speci men Type: BLOOD SPECIMENOrdering Facility: [facility] Address: [address] [place] [address] Performed By: #### 5 8410-2 ####[facility] LABCLIA [id number] [place] [address] Hemoglobin (Bld) [Mass/Vol] 13.4 g/dL Normal 11.5-15.5 [facility] Comment on above: Order Comment: Speci men Type: BLOOD SPECIMENOrdering Facility: [facility] Address: [address] [place] [address] Performed By: #### 5 8410-2 ####[facility] LABCLIA [id number] [place] [address] MCH (RBC) [Entitic mass] 30.7 pg Normal 26.0-34.0 [facility] Comment on above: Order Comment: Speci men Type: BLOOD SPECIMENOrdering Facility: [facility] Address: [address] [place] [address] Performed By: #### 5 8410-2 ####[facility] LABIA [id number] [place] [address] MCHC (RBC) [Mass/Vol] 33.6 g/dL Normal 30.5-36.0 [facility] Comment on above: Order Comment: Speci men Type: BLOOD SPECIMENOrdering Facility: [facility] Address: [address] [place] [address] Performed By: #### 5 8410-2 ####[facility] LABIA [id number] [place] [address] MCV (RBC) [Entitic vol] 91.5 fL Normal 80.0-100.0 [facility] Comment on above: Order Comment: Speci men Type: BLOOD SPECIMENOrdering Facility: [facility] Address: [address] [place] [address] Performed By: #### 5 8410-2 ####[facility] LABIA [id number] [place] [address] Nucleated RBC (Bld) [#/Vol] 10*3/uL Normal <0.01 [facility] Comment on above: Order Comment: Speci men Type: BLOOD SPECIMENOrdering Facility: [facility] Address: [address] [place] [address] Performed By: #### 5 8410-2 ####[facility] LABCLIA [id number] [place] [address] Platelet mean volume (Bld) [Entitic vol] 9.2 fL Normal 9.0-12.7 [facility] Comment on above: Order Comment: Speci men Type: BLOOD SPECIMENOrdering Facility: [facility] Address: [address] [place] [address] Performed By: #### 5 8410-2 ####[facility] LABIA [id number] [place] [address] Platelets (Bld) [#/Vol] 409 10*3/uL High 150-400 [facility] Comment on above: Order Comment: Speci men Type: BLOOD SPECIMENOrdering Facility: [facility] Address: [address] [place] [address] Performed By: #### 5 8410-2 ####[facility] LABIA [id number] [place] [address] RBC (Bld) [#/Vol] 4.36 10*6/uL Normal 3.90-5.20 [facility] Comment on above: Order Comment: Speci men Type: BLOOD SPECIMENOrdering Facility: [facility] Address: [address] [place], [place] [address] Performed By: #### 5 8410-2 ####[facility] LABIA [id number] [place] [address] WBC (Bld) [#/Vol] 16.45 10*3/uL High 3.70-11.00 [facility] Comment on above: Order Comment: Speci men Type: BLOOD SPECIMENOrdering Facility: [facility] Address: [address] [place], [place] [address] Performed By: #### 5 8410-2 ####[facility] LABIA [id number] [place] [address] CNPRosemary 08-15-2022 CNPN Telephone (BRENT) EDITH WELLS ([id number]) 1995 F Date Time Provider Department 08/15/22 TESSA SANCHEZ During your visit today, we recorded the following information about you: Kasi Mathur PA-C 08/15/2022 9:48 AM Signed Good morning Dr. 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 She had her pre-op [...] unspecified type [D72.829] Order(s):CBC [SQCBC] Order #: [id number] FUTURE Prescriptions as of 08/24/2022 - predniSONE [...] Encounter Status:Closed by KASI MATHUR on 08/24/22 [facility] HISTORY PHYSICALon HISTORY PHYSICAL HNO ID: [id number] Author: Kasi Mathur PA-C Service: ? Author Type: Physician Supervisor [place] Type: HANDP Filed: 08/24/2022 1:26 PM Note [...] fevers. Neuro: No history of TIA's, stroke, BIKE DESIGNER tumor, impaired sensorium, hemiplegia, paraplegia or quadraplegia. No neurological symptoms or problems. Respiratory: Positive for former smoker (quit 10/30 ppd x 8 years, Negative for Asthma, COPD, Current cough, URI < 2 weeks Cardiovascular: Positive for: bradycardia and history of PVCs - history of Betaxolol tx, history of syncope x2 2018 and 2019 (had low potassium for 1 episode)- no further syncope, Negative for Recent UT, CAD, Chest Pain, CHF, Valvular Heart Disease, DVT/PE, edema, orthopnea, further syncope, palpitations GI: Positive for GERD - takes TUMS prn, Negative for Nausea, Vomiting, Abdominal pain, Hepatitis, Pancreatitis : No history of dysuria, frequency or incontinence,, stones or chronic kidney disease PUMP RUNNER: Negative for abnormal vaginal bleeding, abnormal vaginal [...] normal respiratory (more content not included)... Normal [facility] CNCOon 2022 CNCO Letter Text Normal [facility] CNOVon 2022 CNOV Office Visit (ORAVON ) EDITH WELLS ([id number]) 1995 F Date Time Provider Department 08/08/22 [...] Scan The patient's pertinent medical history from [facility] has been reviewed. PFOMIS forms have been [...] anticipated outc (more content not included)... Normal [facility] XR LSPINE 2_3 VIEWSon 2021 XR [...] by: CHARBEL TAPIA Date: 2022-08-01 20:44 Normal [facility] XR ankle RT min 3V*on 2021 XR ankle RT min 3V* [facility] Main [place] [address] [place] [address] XRay Report Signed Patient: Edith Wells MR#: [id number] : 1995 Acct:[id number] Age/Sex: 26 / F ADM Date: 07/07/22 Loc: ER Room: Type: [facility] ER Attending Dr: Copies to: Constantine [...] Keaton Brooks M.D.07/08/2022 9:41 AM Dictation Location: [place] [address] Transcribed By: [facility] 07/08/22940 Dictated By: Keaton Brooks II, MD 07/08/22938 Signed By: 07/08/22940 [facility] Covid-19 PCR ([facility])on SARS-CoV-2 (COVID-19) RNA HAROLDO+probe Ql (Unsp spec) Not detected Normal NOT DETECTED [facility] Comment on above: Result Comment: When [...] for this test is supported by the [place] of Health and Human Service's declaration that [...] #### L IPA, CMP, SYEDA, PREGQNT #### [facility] [address] [place] [id number] Judah Phipps GROUP A STREP CULTUREon S. pyogenes Ag Ql (Unsp spec) Culture Observations: NEGATIVE FOR GROUP A STREPTOCOCCUS. Normal [facility] Comment on above: Performed By: #### G RASTCX, SSCRN #### [facility] [address] [address] [address] Judah Phipps STREPT SCREENon 06-28-2022 STREP SCREEN A Negative Normal NEGATIVE [facility] Comment on above: Performed By: #### G RASTCX, SSCRN #### [facility] [address] [address] [address] Judah Phipps XR Ankle Complete Righton [...] by Kristi Olguin on 05/07/2022 1503 Normal [facility] [employer] Coordinator XR Spine Lumbar 4+ Views*on 05-07-2022 XR [...] by Kristi Olguin on 05/07/2022 1453 Normal [facility] Specialist Vital Signs Date Time Vital Sign Value Performing Clinician Facility 05-08-2023 09:30-0400 Body height 163.19 cm Charbel Rodriguez Other [facility] Other 05-08-2023 09:30-0400 Body mass index (BMI) [Ratio] 46.15 kg/m2 Charbel Rodriguez Other [facility] Other 05-08-2023 09:30-0400 Body temperature 98.3 [degF] Charbel Alicerosey Other [facility] Other 05-08-2023 09:30-0400 Body weight 122.93 kg Charbel Alicerosey Other [facility] Other 05-08-2023 09:30-0400 Diastolic blood pressure 84 mm[Hg] Charbel Rodriguez Other [facility] Other 05-08-2023 09:30-0400 Respiratory rate 18 /min Charbel Alicerosey Other [facility] Other 05-08-2023 09:30-0400 SaO2% (BldA) [Mass fraction] 98 % Charbel Rodriguez Other [facility] Other 05-08-2023 09:30-0400 Systolic blood pressure 130 mm[Hg] Charbel Rodriguez Other [facility] Other 04-12-2023 10:50-0400 Body height 163.19 cm Charbel Rodriguez Other [facility] Other 04-12-2023 10:50-0400 Body mass index (BMI) [Ratio] 45.47 kg/m2 Charbel Rodriguez Other [facility] Other 04-12-2023 10:50-0400 Body temperature 98.8 [degF] Charbel Rodriguez Other [facility] Other 04-12-2023 10:50-0400 Body weight 121.11 kg Charbel Rodriguez Other [facility] Other 04-12-2023 10:50-0400 Diastolic blood pressure 84 mm[Hg] Charbel Rodriguez Other [facility] Other 04-12-2023 10:50-0400 Respiratory rate 20 /min Charbel Michael Other [facility] Other 04-12-2023 10:50-0400 SaO2% (BldA) [Mass fraction] 98 % Charbel Alicerosey Other [facility] Other 04-12-2023 10:50-0400 Systolic blood pressure 138 mm[Hg] Charbel Alicerosey Other [facility] Other 12-07-2022 11:20-0500 Body height 163.19 cm Ronda Guevara Other [facility] Other 12-07-2022 11:20-0500 Body mass index (BMI) [Ratio] 42.57 kg/m2 Ronda Guevara Other [facility] Other 12-07-2022 11:20-0500 Body temperature 97.2 [degF] Ronda Guevara Other [facility] Other 12-07-2022 11:20-0500 Body weight 113.4 kg Ronda Guevara Other [facility] Other 12-07-2022 11:20-0500 SaO2% (BldA) [Mass fraction] 98 % Ronda Guevara Other [facility] Other 08-14-2022 11:13-0400 Body height 165.1 cm [facility] 08-14-2022 11:13-0400 Body weight 120.66 kg [facility] 08-14-2022 11:13-0400 Heart rate 60 /min [facility] 08-13-2022 15:40-0400 Body height 163.19 cm Charbel Rodriguez Other [facility] Other 08-13-2022 15:40-0400 Body mass index (BMI) [Ratio] 45.64 kg/m2 Charbel Rodriguez Other [facility] Other 08-13-2022 15:40-0400 Body temperature 97.7 [degF] Charbel Rodriguez Other [facility] Other 08-13-2022 15:40-0400 Body weight 121.56 kg Charbel Rodriguez Other [facility] Other 08-13-2022 15:40-0400 Diastolic blood pressure 82 mm[Hg] Charbel Rodriguez Other [facility] Other 08-13-2022 15:40-0400 Respiratory rate 18 /min Charbel Rodriguez Other [facility] Other 08-13-2022 15:40-0400 SaO2% (BldA) [Mass fraction] 98 % Charbel Rodriguez Other [facility] Other 08-13-2022 15:40-0400 Systolic blood pressure 132 mm[Hg] Charbel Rodriguez Other [facility] Other 07-07-2022 18:14-0400 Body temperature 98.4 [degF] DO Charbel Rodriguez Work Phone: [facility] 07-07-2022 18:14-0400 Diastolic blood pressure 80 mm[Hg] DO Charbel Rodriguez Work Phone: [facility] 07-07-2022 18:14-0400 Heart rate 65 /min DO Charbel Rodriguez Work Phone: [facility] 07-07-2022 18:14-0400 Respiratory rate 20 /min DO Charbel Rodriguez Work Phone: [facility] 07-07-2022 18:14-0400 SaO2% (BldA) [Mass fraction] 99 % DO Charbel Rodriguez Work Phone: [facility] 07-07-2022 18:14-0400 Systolic blood pressure 147 mm[Hg] DO Charbel Rodriguez Work Phone: [facility] 07-07-2022 18:05-0400 Body height 165.1 cm DO Charbel Rodriguez Work Phone: [facility] 07-07-2022 18:05-0400 Body weight 113.39 kg DO Charbel Rodriguez Work Phone: [facility] Encounters Encounter Date Encounter Type Care Provider Facility Start: 04-07-2024 End: 04-07-2024 ambulatory JACK IDANIA Not Available Start: 03-31-2024 End: 03-31-2024 ambulatory JACK IDANIA Not Available Start: 03-16-2024 End: 03-16-2024 ambulatory JACK IDANIA Not Available Start: 03-04-2024 End: 03-04-2024 ambulatory [...] 09-13-2023 End: 09-13-2023 ambulatory Charbel Rodriguez Other [facility] Other Start: 09-13-2023 Telephone encounter Charbel Rodriguez [facility] [place] Start: 09-10-2023 End: 09-10-2023 ambulatory SONIA ENRIQUEZ Not Available Start: 06-24-2023 End: 06-24-2023 ambulatory Charbel Rodriguez Other [facility] Other Start: 06-24-2023 Telephone encounter Charbel Rodriguez [facility] [place] Start: 06-03-2023 End: 06-03-2023 ambulatory Charbel Rodriguez Other [facility] Other Start: 06-03-2023 Telephone encounter Charbel Rodriguez [facility] [place] Start: 05-27-2023 End: 05-27-2023 ambulatory Charbel Rodriguez Other [facility] Other Start: 05-27-2023 Telephone encounter Charbel Rodriguez [facility] [place] Start: 05-08-2023 End: 05-08-2023 ambulatory Charbel Rodriguez Other [facility] Other Start: 05-08-2023 Office outpatient vi sit 15 minutes Charbel Rodriguez [facility] [place] Start: 04-26-2023 End: 04-26-2023 ambulatory Charbel Rodriguez Other [facility] Other Start: 04-26-2023 Telephone encounter Charbel Rodriguez [facility] [place] Start: 04-19-2023 End: 04-19-2023 ambulatory Charbel Rodriguez Other [facility] Other Start: 04-19-2023 Telephone encounter Charbel Rodriguez [facility] [place] Start: 04-17-2023 End: 04-17-2023 ambulatory CHARBEL RODRIGUEZ Facility:[facility] Start: 04-17-2023 End: 04-17-2023 Patient encounter procedure Tessa Sanchez MD Work Phone: Orthopaedics Comment on above: 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) Start: 04-12-2023 End: 04-12-2023 ambulatory Charbel Rodriguez Other [facility] Other Start: 04-12-2023 Office outpatient vi sit 15 minutes Charbel Rodriguez [facility] [place] Start: 03-13-2023 End: 03-13-2023 ambulatory CHARBEL RODRIGUEZ Facility:[facility] Start: 02-28-2023 Telephone encounter Tessa bates MD Work Phone: Orthopaedics Comment on above: Electronic Communica tion (PT order faxed today) Start: 01-10-2023 Telephone encounter Tessa bates MD Work Phone: Orthopaedics Comment on above: Return To Work Becky r Start: 01-02-2023 End: 01-02-2023 ambulatory CHARBEL RODRIGUEZ Facility:[facility] Start: 01-02-2023 End: 01-02-2023 Subsequent hospital visit by physician Mike Ortho [facility] Work Phone: Radiology Comment on above: [...] 12-07-2022 End: 12-07-2022 ambulatory Ronda Guevara Other [facility] Other Start: 12-07-2022 Office outpatient vi sit 25 minutes Ronda Guevara [facility] Start: 12-07-2022 Telephone encounter Charbel Rodriguez [facility] Start: 11-19-2022 End: 11-19-2022 ambulatory Charbel Rodriguez Other [facility] Other Start: 11-19-2022 Telephone encounter Charbel Rodriguez [facility] Start: 11-14-2022 End: 11-14-2022 Patient encounter procedure Tessa Sanchez MD Work Phone: Orthopaedics Comment on above: 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) Start: 11-14-2022 End: 11-14-2022 Subsequent hospital visit by physician Mike Ortho [facility] Work Phone: Radiology Comment on above: Osteochondritis diss ecans of right talus [M93.271] Start: 11-14-2022 End: 11-14-2022 ambulatory CHARBEL RODRIGUEZ [facility] [employer] Other Start: 11-14-2022 Telephone encounter Charbel Rodriguez [facility] Start: 11-13-2022 End: 11-14-[address] CHARBEL RODRIGUEZ Facility: Start: 11-12-2022 End: 11-12-2022 ambulatory Charbel Rodriguez Other [facility] Other Start: 11-12-2022 Telephone encounter Charbel Rodriguez [facility] Start: 10-31-2022 Orders Only Tessa Vasquez Work Phone: Orthopaedics Comment on above: 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) Start: 10-10-2022 End: 10-10-2022 ambulatory CHARBEL RODRIGUEZ Facility:[facility] Start: 10-10-2022 End: 10-10-2022 Patient encounter procedure Tessa Sanchez MD Work Phone: Orthopaedics Comment on above: 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) Start: 09-26-2022 Telephone encounter Tessa bates MD Work Phone: Orthopaedics Comment on above: Patient Question Start: 09-12-2022 End: 09-12-2022 ambulatory CHARBEL RODRIGUEZ Facility:[facility] Start: 09-12-2022 End: 09-12-2022 Patient encounter procedure [employer] [place] Work Phone: Orthopaedics Comment on above: 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) Start: 09-05-2022 End: 09-05-2022 ambulatory Charbel Rodriguez Other [facility] Other Start: 09-05-2022 Telephone encounter Charbel Rodriguez [facility] Start: 09-03-2022 End: 09-03-2022 ambulatory Charbel Rodriguez Other [facility] Other Start: 09-03-2022 Telephone encounter Charbel Rodriguez [facility] Comment on above: post op right ankle swelling and pain Start: 09-02-2022 Telephone encounter Eyad marroquin MD Work Phone: Surgical Intensive Care Unit Comment on above: Patient Question Start: 08-29-2022 End: 08-29-2022 Patient encounter procedure [employer] Work Phone: Orthopaedics Comment on above: 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) Start: 08-29-2022 End: 08-29-2022 ambulatory CHARBEL RODRIGUEZ [facility] Other Start: 08-29-2022 Telephone encounter Charbel Rodriguez [facility] Start: 08-28-2022 End: 08-28-2022 ambulatory TESSA SANCHEZ Facility:[facility] Start: 08-27-2022 Refill Tessa Vasquez Work Phone: Orthopaedics Comment on above: Refill Request Start: 08-24-2022 End: 08-24-2022 ambulatory CHARBEL RODRIGUEZ Facility:[facility] Start: 08-16-2022 End: 08-16-2022 ambulatory Charbel Rodriguez Other [facility] Other Start: 08-16-2022 Telephone encounter Charbel Rodriguez [facility] Start: 08-15-2022 Telephone encounter Tessa bates MD Work Phone: Pre Anesthesia Comment on above: Results; Preparation s For Surgery Start: 08-15-2022 End: 08-15-2022 ambulatory CHARBEL RODRIGUEZ Facility:[facility] Start: 08-14-2022 Encounter for other preprocedural examination CHARBEL RODRIGUEZ [facility] Start: 08-14-2022 End: 08-14-2022 Admission to establishment [facility] Start: 08-14-2022 End: 08-14-2022 ambulatory TESSA SANCHEZ Pre Anesthesia Comment on above: Preop examination (P rimary Dx); Anemia, unspecified type; Difficult intravenous access; Acute bilateral low back pain without sciatica; History of syncope; History of palpitations; Former smoker; BMI 40.0-44.9, adult (HCC) Start: 08-14-2022 End: 08-14-2022 Preprocedural examination done [facility] Pre Anesthesia Start: 08-13-2022 End: 08-13-2022 ambulatory Charbel Rodriguez Other [facility] Other Start: 08-13-2022 Office outpatient vi sit 15 minutes Charbel Rodriguez [facility] Start: 08-13-2022 Telephone encounter Charbel Rodriguez [facility] Start: 2022 End: 2022 ambulatory CHARBEL RODRIGUEZ Facility:[facility] Start: 2022 End: 2022 Patient encounter procedure Tessa Sanchez MD Work Phone: Orthopaedics Comment on above: 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) Start: 08-01-2022 End: 08-01-[address] CHARBEL RODRIGUEZ Facility: Start: 07-09-2022 End: 07-09-2022 ambulatory Charbel Rodriguez Other [facility] Other Start: 07-09-2022 Telephone encounter Charbel Rodriguez [facility] Start: 07-07-2022 End: 07-07-2022 Emergency department patient visit Charbel Rodriguez Facility:[facility] Start: 07-07-2022 End: 07-07-2022 Emergency department patient visit Charbel Rodriguez Work Phone: [facility] Start: 06-28-2022 End: 06-28-[address] CHARBEL RODRIGUEZ Facility:[facility] Start: 05-23-2022 End: 05-23-2022 ambulatory Charbel Rodriguez Other [email or web address] Other Start: 05-23-2022 Telephone encounter Charbel Rodriguez [facility] [place] Start: 01-06-[address] CHARBEL RODRIGUEZ Facilit y:[facility] Procedures Date Procedure Procedure Detail Performing Clinician Start: 01-02-2023 Radex ankle complete minimum 3 views Tessa Sanchez MD Work Phone: Start: 11-14-2022 Radex ankle complete minimum 3 views Tessa Sanchez MD Work Phone: H/O: section Status post C-secti on Charbel Rodriguez Work Phone: Plan of Treatment Date Care Activity Detail Author Start: 11-29-2031 Urine microalbumin profile DTaP,Tdap,Td Vaccine (7 - Td or Tdap) [facility] Start: 06-28-2023 Influenza vaccination [facility] Start: 08-14-2022 End: 10-14-2022 Basic metabolic 2000 panel - Serum or Plasma BASIC METABOLIC PNL Lab Routine History of syncope Expected: 08/14/2022, Expires: 10/14/2022 [facility] Work Phone: Comment on above: Expected: 08/14/2022 , Expires: 10/14/2022 Start: 08-14-2022 End: 10-14-2022 CBC panel - Blood by Automated count CBC Lab Routine Preop examination Anemia, unspecified type Expected: 08/14/2022, Expires: 10/14/2022 [facility] Work Phone: Comment on above: Expected: 08/14/2022 , Expires: 10/14/2022 Start: 07-07-2022 X-ray of right ankle XR ankle RT min 3V* [facility] Start: 07-07-2022 XR Ankle - right GE 3 Views [facility] Work Phone: Start: 06-28-2022 Influenza vaccination INFLUENZA (#1) [facility] Start: 10-28-2021 DEPRESSION ASSESSMENT DEPRESSION ASS ESSMENT [facility] Start: 2015 PAP TESTING PAP TESTING [facility] Start: 2013 Urine microalbumin profile DTAP,TDAP,TD (1 - Tdap) [facility] Start: 2012 HEPATITIS C SCREENING HEPATITIS C SC REENING [facility] Start: 2012 HIV SCREENING HIV SCREENING [facility] Start: 2000 PNEUMOCOCCAL (1 - PCV) PNEUMOCOCCAL (1 - PCV) [facility] Start: 02-06-1995 COVID-19 VACCINE (#1) COVID-19 VACCI NE (#1) [facility] Start: 1994 HEPATITIS B (1 of 3 - 3-dose series) HEPATITIS B (1 of 3 - 3-dose series) [facility] Patient Education Ankle Sprain ED [facility] Work Phone: Patient referral [facility] Work Phone: End: 11-30-2023 XR ANKLE GENERAL 3V AP/LAT/OBL RIGHT XR ANKLE GENERAL 3V AP/LAT/OBL RIGHT Radiology Routine Osteochondritis dissecans of right talus 1 Occurrences starting 11/02/2022 until 11/30/2023 [facility] Work Phone: Comment on above: 1 Occurrences starti ng 11/02/2022 until 11/30/2023 [facility] Immunization Date Immunization Notes Care Provider Judy adamson 11-29-2021 tetanus toxoid, reduced diphtheria toxoid, and acellular pertussis vaccine, adsorbed DO Charbel Rodriguez Work Phone: [facility] NEGATED: Highlighted row has not occurred!08-07-2019 influenza, seasonal, injectable Patient Objection Charbel Rodriguez Other [email or web address] Other Payers Date Payer Category Payer Medicaid [id number] 2. [id number] 2022 Self-pay [id number] 2021 Medicaid [id number] 5 2018 Unknown [id number] [id number] 5 1994 Unknown [id number] 2.16.84 0.1.536938.3.579.2.593 1994 Unknown [id number] 2.16.84 0.1.222496.3.579.2.593 1994 Unknown [id number] 2.16.84 0.1.840565.3.579.2.593 1994 Unknown [id number] 2.16.84 0.1.823654.3.579.2.593 1994 Unknown [id number] 2.16.84 0.1.404891.3.579.2.1259 1994 Unknown [id number] 2.16.84 0.1.363382.3.579.2.1259 1994 Unknown [id number] 2.16.84 0.1.809464.3.579.2.1259 1994 Unknown [id number] 2.16.84 0.1.386941.3.579.2.1259 1994 Unknown [id number] 2.16.84 0.1.625131.3.579.2.1259 1994 Unknown [id number] 2.16.84 0.1.228551.3.579.2.1259 1994 Unknown [id number] 2.16.84 0.1.081001.3.579.2.1259 1994 Unknown [id number] 2.16.84 0.1.607999.3.579.2.1259 1994 Unknown [id number] 2.16.84 0.1.408325.3.579.2.1259 1994 Unknown [id number] 2.16.84 0.1.070413.3.579.2.1259 1994 Unknown [id number] 2.16.84 0.1.462482.3.579.2.1259 1994 Unknown [id number] 2.16.84 0.1.991214.3.579.2.1259 1994 Unknown [id number] 2.16.840 .1.197234.3.579.2.1259 1994 Unknown [id number] 2.16.840 .1.797785.3.579.2.1259 1994 Unknown [id number] 2.16.840 .1.616330.3.579.2.1259 1994 Unknown [id number] 2.16.840. 1.567525.3.579.2.1259 1960 Medicaid [id number] 1959 Unknown [id number] Medicaid [place] Advantage [id number] 101 [id number] Unknown [id number] 2.16.8 40.1.324082.3.579.2.531 Social History Date Type Detail Facility Start: 07-07-2022 End: 08-14-2022 Tobacco smoking status AKIS Ex-smoker (finding) [facility] Start: 1995 Sex Assigned At Female F [facility] Start: 10-03-2018 [facility] Start: 10-03-2018 End: 08-14-2022 Tobacco use and exposure Smokeless tobacco non-user [facility] Start: 01-01-2019 End: 08-14-2022 Alcohol intake Current non-drinker of alcohol (finding) [facility] Start: 1995 Sex Assigned At Not on file [facility] Start: 08-14-2022 End: 11-10-2022 Sex Assigned At [facility] [employer] Other End: 10-28-2019 History of tobacco use Current smoker [facility] Work Phone: End: 10-28-2019 History of tobacco use Cigarette Smoker [facility] Work Phone: Start: 08-14-2022 End: 11-10-2022 Cigarettes smoked current (pack per day) - Reported 0.3 [facility] Start: 08-04-2022 End: 08-28-2022 Exposure to SARS-CoV-2 (event) Not sure [facility] Work Phone: National Score (1-100), lower number is lower risk 86 [facility] Clinical Notes 05-23-2022 to 06-03-2023 Note Date & Type Note Facility 06-03-2023 Evaluation note Encounter Date Diagnosis Assessment Notes May, Depression (ICD-10 - F32.9) [facility] [employer] Other [id number] Evaluation note* Encounter Date Diagnosis Assessment Notes [...] her dose should be increased or not. [facility] Other 06-30-2023 Evaluation note* Encounter Date Diagnosis Assessment Notes Treatment Notes Treatment Clinical Notes Mar, Weight gain (ICD-10 - R63.5) [facility] Other 06-21-2023 NoteHNO ID: [id number] Author: Tessa Sanchez MD Service: ? Author [...] and is of normal mood and affect. [facility] 07/02/2022 Gait Cycle: Normal Yes, Limp: [...] records. This note was partially generated using myinfoQ voice recognition system, and there may be some incorrect words, spellings, and punctuation that were not noted in checking the note before saving. Tessa Sanchez M.D.[facility]06-21-2023 History of Present illness Narrative* Tessa [...] records. This note was partially generated using myinfoQ voice recognition system, and there may be some incorrect words, spellings, and punctuation that were not noted in checking the note before saving. Tessa Sanchez M.D. [facility] Evaluation note* Encounter Date Diagnosis Assessment [...] can take a multivitamin daily ([place] Complete) [facility] Other 05-17-2023 NoteHNO ID: [id number] Author: Tessa Sanchez MD Service: ? Author [...] and is of normal mood and affect. [facility] 07/02/2022 Gait Cycle: Normal Yes, Limp: [...] records. This note was partially generated using myinfoQ voice recognition system, and there may be some incorrect words, spellings, and punctuation that were not noted in checking the note before saving. Tessa Sanchez M.D.[facility]05-05-2023 Miscellaneous Notes* Telephone Encounter - Lizzette Romeo RN - 03/01/2023 10:21 AM EDT Faxed today at 10:20am. Lizzette Romeo RN * Telephone Encounter - Margy Contreras Pss - 02/28/2023 4:08 PM EDT Patient wants to get physical therapy at [facility] in [place]. Has been approved by [facility] and she can now schedule. Asking for recent therapy order from Dr Sanchez be faxed to [facility] in [place] at [phone]. documented in this [facility]03-[facility]23 Miscellaneous Notes* Telephone Encounter - Lizzette [...] calling: self Call patient at: at home [phone] (home) [phone] (cell) Was an appointment scheduled: No Closing statement: Results or non-symptom based questions: Thank you for calling [facility], your call will be returned within [...] back to the office to update CALL [phone] documented in this encounterWooster [facility] Hospital03-08-2023 NoteHNO ID: [id number] Author: RT Rubina(R) Service: Radiology Author Type: [...] Cespedes RT RT(R) January 02, 2023 4:10 [facility]03-08-2023 NoteHNO ID: [id number] Author: Tessa Sanchez MD Service: ? Author [...] records. This note was partially generated using myinfoQ voice recognition system, and there may be some incorrect words, spellings, and punctuation that were not noted in checking the note before saving. Anetaibmihai Attestation: By signing my name below, I, Pippa Moss, attest that this documentation has been prepared under the direction and in the presence of Tessa Sanchez MD. Electronically Signed: alan Alarcon, January 02, 2023 4:30 PM I agree with the Chief Complaint, ROS, and Past Histories independently gathered by the clinical lan support specialist and the remaining scribed note accurately describes my personal service to the patient. Tessa Sanchez M.D.[facility]03-08-2023 History of Present illness Narrative* Blaise Glynn RT(R) - 01/02/2023 4:15 PM EST Radiology [...] 02, 2023 4:10 PM documented in this encounterWooster [facility]03-08-2023 History of Present illness Narrative* Tessa [...] records. This note was partially generated using myinfoQ voice recognition system, and there may be some incorrect words, spellings, and punctuation that were not noted in checking the note before saving. Scribe Attestation: By signing my name below, I, Pippa Ajay, attest that this documentation has been prepared under the direction and in the presence of Tessa Sanchez MD. Electronically Signed: alan Alarcon, January 02, 2023 4:30 PM I agree with the Chief Complaint, ROS, and Past Histories independently gathered by the clinical lan support specialist and the remaining scribed note accurately describes my personal service to the patient. Tessa Sanchez M.D. documented in this encounterWooster [facility]02-24-2023 Miscellaneous Notes* Telephone Encounter - Vinay Corona RN - 12/21/2022 5:34 PM EST This RN called and spoke with patient. Letter sent via [employer] she report she received it. 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 She was grateful for the call. Vinay [...] that prevented her form having PT. CALL [phone] * Telephone Encounter - Autumn Clayton - [...] with update Please advise documented in this encounterWo[facility]02-24-2023 Miscellaneous Notes* Telephone Encounter - Vinay [...] office to complete them. documented in this encounterW[facility]02-10-2023 Evaluation note* Encounter Date Diagnosis Assessment [...] treatment plan. Patient left in stable condition [facility] Other 01-23-2023 Evaluation note* Encounter Date Diagnosis Assessment Notes Treatment Notes Treatment Clinical Notes Oct, Cough (ICD-10 - R05.9) Oct, Sore throat (ICD-10 - J02.9) Oct, Headache (ICD-10 - R51.9) Oct, Congestion of nasal sinus (ICD-10 - R09.81) [facility] Other 01-18-2023 NoteHNO ID: [id number] Author: RT Marquis(Wayne) Service: Radiology Author Type: Technologist Type: Progress [...] BY: RT Marquis(Wayne) November 14, 2022 4:05 [facility]01-18-2023 History of Present illness Narrative* Syeda [...] BY: RT Marquis(R) November 14, 2022 4:05 PM documented in this encounterWooster [facility] Hospital01-18-2023 Evaluation note* Encounter Date Diagnosis Assessment Notes Treatment Notes Treatment Clinical Notes Oct, Leukocytosis (ICD-10 - D72.829) [facility] Other [id number] NoteHNO ID: [id number] Author: Tessa Sanchez MD Service: ? Author [...] and follow-up in 4 weeks Tessa Sanchez [facility]01-17-2023 History of Present illness Narrative* [...] weeks Tessa Sanchez MD documented in this encounterWooster [facility] Hospital01-16-2023 Evaluation note* Encounter Date Diagnosis Assessment [...] and will have this done at the [facility] lab. She can call for results. [...] Oct, Other 2:54 PM - 3:02 PM [facility] Other 12-14-2022 NoteHNO ID: [id number] Author: Tessa Sanchez MD Service: ? Author [...] in 6 weeks for recheck Tessa Sanchez [facility]12-14-2022 History of Present illness Narrative* [...] instructed and follow-up in 6 weeks for cordelleck Tessa Sanchez MD documented in this encounterWooster [facility] Hospital12-02-2022 Miscellaneous Notes* Telephone Encounter - Lizzette [...] pm. Patient requesting a return call through #[phone] #[phone]. The second number is her boyfriends line, Elias. Patient gives okay to leave me ssage with Elias if needed. Please advise. documented in this encounterWooster [facility] Hospital11-16-2022 NoteHNO ID: [id number] Author: Tessa Sanchez MD Service: ? Author [...] follow up in 4 weeks. Tessa Sanchez [facility]11-16-2022 NoteHNO ID: [id number] Author: Alfred Campo Cast Service: ? Author Type: ? Type: Progress Notes Filed: 09/12/2022 4:10 PM Note Text: PT ASSESSMENT - CASTING ROOM Edith presents for cast removal. Applied pneumatic aircast walker(HAD PRIOR TO SURGERY) to Right leg non-weight bearing Patient has been instructed in Care of boot.. Alfred Campo Cast Beeper: [id number]11-16-[facility] History of Present illness Narrative* Tessa [...] weeks. Tessa Sanchez MD documented in this encounterWooster [facility] Hospital11-16-2022 History of Present illness Narrative* Alfred Alber Cast - 09/12/2022 4:04 PM EST PT ASSESSMENT - CASTING ROOM Edith presents for cast removal. Applied pneumatic aircast walker(HAD PRIOR TO SURGERY) to Right leg non-weight bearing Patient has been instructed in Care of boot.. Alfred Santosey Cast Beeper: [id number] documented in this encounterWooster [facility] Hospital11-07-2022 Miscellaneous Notes* Telephone Encounter - Lizzette [...] until 09/12. Please advise. documented in this encounterWooster [facility] Hospital11-07-2022 NoteHNO ID: [id number] Author: Lizzette Romeo RN Service: ? Author [...] was the physician present today. Lizzette Romeo RNProtestant Deaconess Hospital11-06-2022 Miscellaneous Notes* Telephone Encounter - Eyad [...] MD Orthopaedic Surgery, PGY-3 documented in this encounterWo[facility]11-02-2022 NoteHNO ID: [id number] Author: Alfred Griffith Service: ? Author Type: ? Type: Progress Notes Filed: 08/29/2022 3:44 PM Note Text: PT ASSESSMENT - CASTING ROOM Edith presents for Application of cast. Applied short cast: to Right leg non-weight bearing Patient has been instructed in Care of cast.. Alfred Campo Cast Beeper: [id number] [facility]aconess Hospital11-02-2022 History of Present illness Narrative* Alfred Campo Cast - 08/29/2022 3:40 PM EDT PT ASSESSMENT - CASTING ROOM Edith presents for Application of cast. Applied short cast: to Right leg non-weight bearing Patient has been instructed in Care of cast.. 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, 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 Reason for block: post-op pain management/at surgeon's [...] August 28, 2022 TIME: 1:00 PM CSN: [id number] NoteHNO ID: [id number] Author: GEORGIE Tinsley Service: Anesthesiology Author Type: Community Development Director Type: Anesthesia Procedure Notes Filed: 08/28/2022 10:57 [...] August 28, 2022 TIME: 10:56 AM CSN: [id number] NoteHNO ID: [id number] Author: Mike Alcantar MD Service: Anesthesiology Author Type: Anesthesiologist Type: Anesthesia Procedure Notes Filed: 08/28/2022 9:35 AM Note Text: ANESTHESIOLOGY PROCEDURE NOTE Peripheral Nerve Block General Information Procedure Start Time/Medication Administration: 08/28/2022 9:16 AM Procedure End time: 08/28/2022 9:24 AM Patient location during procedure: pre-op Timeout Performed Pre-procedure: timeout performed (920) Consent Obtained: Yes 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 She had her pre-op [...] Kasi Mathur PA-C PACC documented in this encounterWooster Community Hospital10-18-2022 Instructions* Patient Instructions* Kasi Mathur PA-C - 08/14/2022 11:33 AM EDT Lab in [place]: [facility], [place] [id number] PATIENT PREOPERATIVE INSTRUCTIONS Tessa Sanchez MD has scheduled you for your procedure at this surgery center: [facility]: [phone] --[address] [place] [address]. Please read below carefully for your personalized [...] Procedures: - YOU MUST HAVE A RESPONSIBLE HEEL COVER SOFTENER TAKE YOU HOME. A CORE SHAPER OR FAMILY CENTERED SPECIALIST CANNOT BE MADE A RESPONSIBLE HEEL COVER SOFTENER. - We recommend that a responsible person [...] Advance Directive, please fax a copy to [phone] or email to for it to be [...] day. Kasi Mathur PA-C documented in this encounterWooster Community Hospital10-18-2022 History and physical note * Kasi [...] Ptsd (Post-Traumatic Stress Disorder) Bmi 40.0-44.9, Adult ([facility]) History of Palpitations Former Smoker History of [...] fevers. Neuro: No history of TIA's, stroke, BIKE DESIGNER tumor, impaired sensorium, hemiplegia, paraplegia or quadraplegia. [...] or incontinence,, stones or chronic kidney disease PUMP RUNNER: Negative for abnormal vaginal bleeding, abnormal vaginal [...] visit: Labs per care everywhere reviewed: 11/29/2021 [facility] CBC Hgb 9.0 (11.8-15.4) Hct 26.5% [...] a prior CC echocardiographic exam for comparison. potline monitor 09/17/2018 Patient had a min HR of 36 bpm, max HR of 156 bpm, and avg HR of 74 bpm. Predominant underlying rhythm was Sinus Rhythm. No Isolated SVEs, SVE Couplets, or SVE Triplets were present. Isolated VEs were frequent (8.2%, 66624), and no VE Couplets or VE Triplets [...] been asymptomatic. 7. Former smoker Quit 2019, 1/3 ppd x years 8. BMI 40.0-44.9, adult ([facility]) BMI 44 METS: Climb a flight of [...] 11:04 AM PAGER/CONTACT #: documented in this encounterWooster [facility] Hospital10-17-2022 Evaluation note* Encounter Date Diagnosis Assessment [...] she can discuss this treatment with her vice president process. She is having surgery on 08-28-22. Guidance [...] be following with Dr. Sanchez at the [facility] location, she was referred to him by Dr. Cosby. She thinks it is bone that is trying to heal. [facility] Other 10-12-2022 NoteHNO ID: [id number] Author: Tessa Sanchez MD Service: ? Author [...] Scan The patient's pertinent medical history from [facility] has been reviewed. PFOMIS forms have been [...] the patient, and the (more content not included)...[facility]10-12-2022 History of Present illness Narrative* Tessa [...] Scan The patient's pertinent medical history from [facility] has been reviewed. PFOMIS forms have been [...] records. This note was partially generated using myinfoQ voice recognition system, and there may be [...] Past Histories independently gathered by the clinical lan support specialist and the remaining scribed note accurately describes my personal service to the patient. Tessa Sanchez M.D. documented in this encounterWooster [facility] Hospital07-27-2022 Evaluation note* Encounter Date Diagnosis Assessment [...] S82.899A) right ankle She has seen an senior medical billing specialist twice for a right ankle fracture. [...] Apr, Other 9:55 AM - 10:05 AM [facility] Other Evaluation noteNo assessment information available [facility] Work Phone: Evaluation note* Diagnosis Osteochondritis dissecans of right talus- Primary documented in [facility] encounter [facility] HospitalEvaluation noteNo InformationNort [email or web address] Other Evaluation note* Diagnosis Preop examination- Primary [...] of right talus documented in this encounter [facility] note* Diagnosis Leukocytosis, unspecified type- Primary Osteochondritis dissecans of right talus documented in this encounter [facility] [place] [facility]* 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 documented in this encounter [facility] [place] [facility]* Diagnosis Osteochondritis dissecans of right talus- Primary documented in this encounter [facility] [place] [facility] note* Diagnosis Osteochondritis dissecans of right talus- Primary documented in this encounter [facility] [place] [facility] note* Diagnosis Osteochondritis dissecans of right talus- Primary documented in this encounter [facility] [place] [facility]* Diagnosis Osteochondritis dissecans of right talus- Primary documented in this encounter [facility] [place] [facility] note* Diagnosis Osteochondritis dissecans of right talus- Primary documented in this encounter [facility] [place] [facility] note* Diagnosis Osteochondritis dissecans of right talus- Primary documented in this encounter [facility] [place] [facility] note* Diagnosis Osteochondritis dissecans of right talus- Primary documented in this encounter [facility] [place] [facility] note* Diagnosis Osteochondritis dissecans of right talus documented in this encounter [facility] general Narrative - Reported* Type Description Date Medical History reflux Medical History menstrual irregularity Medical History vertigo Medical History anxiety Medical History ankle fx right Surgical History T & A 2003 Surgical History Mole removal Surgical History C section Surgical History IUD -Reyna 03/31/17 Surgical History 11/28/21 Hospitalization History See Above [facility] Other History general Narrative - Reported* Type Description Date Medical History reflux Medical History menstrual irregularity Medical History vertigo Medical History anxiety Medical History ankle fx right Surgical History T & A 2003 Surgical History Mole removal Surgical History C section Surgical History IUD -Reyna 03/31/17 Surgical History 11/28/21 Surgical History right ankle surgery 08/28/22 Hospitalization History See Above [facility] Other History general Narrative - Reported* Type [...] IUD removed 03/06/23 Hospitalization History See Above [facility] Other Reason for referral (narrative)* Diagnostic Procedure Only (Routine) - Pending Review Specialty Diagnoses / Procedures Referred By Juve duarte Referred To Contact XR IMAGING Diagnoses Osteochondritis dissecans of right talus Procedures XR ANKLE GENERAL 3V AP/LAT/OBL RIGHT RADEX ANKLE COMPLETE MINIMUM 3 [place] [address] [place] [address] Xr Imaging Referral ID Status Reason Start Date Expiration Date Visits Requested Visits Authorized [id number] Pending Review Auto-Generat ed Referral 11/02/2022 11/30/2023 1 1 [facility] for referral (narrative)* - Pending Review Specialty Diagnoses / Procedures Referred By Juve duarte Referred To Contact Physical Therapy Diagnoses Osteochondritis dissecans of right talus Procedures CONSULT [place] [address] [place] [address] Referral ID Status Reason Start Date Expiration Date V isits Requested Visits Authorized [id number] Pending Review 04/17/2023 07/16/2023 1 1 [facility] for referral (narrative)* Diagnostic Procedure Only (Routine) - Closed Specialty Diagnoses / Procedures Referred By Juve duarte Referred To Contact XR IMAGING Diagnoses Osteochondritis dissecans of right talus Procedures XR ANKLE GENERAL 3V AP/LAT/OBL RIGHT RADEX ANKLE COMPLETE MINIMUM 3 [place] [address] [place] [address] [place] [address] Referral ID Status Reason Start Date Expiration Date V isits Requested Visits Authorized [id number] Closed Auto-Generate d Referral 01/02/2023 01/31/2024 [facility] Procedure Only (Routine) - Closed Specialty Diagnoses / Procedures Referred By Juve duarte Referred To Contact XR IMAGING Diagnoses Osteochondritis dissecans of right talus Procedures XR ANKLE GENERAL 3V AP/LAT/OBL RIGHT RADEX ANKLE COMPLETE MINIMUM 3 [place] [address] [place] [address] [place] [address] Referral ID Status Reason Start Date Expiration Date V isits Requested Visits Authorized [id number] Closed Auto-Generate d Referral 11/02/2022 11/30/2023 1 1 [facility] Summary Purpose Family History No Family History [...] HIGH COMPLEX [address] [place] [address] [place] [address] [facility] [address] [place] [address] Referral ID Status Reason Start Date Expiration Date Visits Requested Visits Authorized [id number] Pending Review Auto-Generat ed Referral 2 09/12/2023 1 1 Additional Source Comments INFORMATION SOURCE (unrecogn ized section and content) DATE CREATED AUTHOR 05/08/2022 [facility] Me dical Specialist DATE CREATED AUTHOR AUTHOR'S ORGANIZ ATION 08/29/2022 [facility] DATE CREATED AUTHOR AUTHOR'S ORGANIZ ATION 11/15/2022 [facility] DATE CREATED AUTHOR AUTHOR'S ORGANIZ ATION 05/28/2023 [facility] DATE CREATED AUTHOR AUTHOR'S ORGANIZ ATION 06/27/2023 [facility] DATE CREATED AUTHOR AUTHOR'S ORGANIZ ATION 04/07/2024 [facility] dical Specialists EPIC Care Teams (unrecognized sec tion and content) Team Status: Inactive Member Role Status Dates Charbel Rodriguez DO Primary Care Provider Active Constantine Yee PA-C Emergency Provider Active Team Status: Active Member Role Status Dates Charbel Rodriguez DO Primary Care Provider Active Information Strategist Relationship Specialty Start Date End Date Charbel Rodriguez DO [address] [place] [address] PCP - General Family Medicine 07/07/18 Charbel Cosby [address] [place] [address] Referring Orthopedics 07/18/22 Information Strategist Relationship Specialty Start Date End Date Charbel Rodriguez DO [address] [place] [address] PCP - General Family Medicine 07/07/18 Charbel Cosby [address] [place] [address] Referring Orthopedics 07/18/22 Information Strategist Relationship Specialty Start Date End Date Charbel Rodriguez DO [address] [place] [address] PCP - General Family Medicine 07/07/18 Charbel Cosby [address] [place] [address] Referring Orthopedics 07/18/22 Information Strategist Relationship Specialty Start Date End Date Charbel Rodriguez, DO [address] [place] [id number] PCP - [facility] Family Medicine 07/07/18 Charbel Cosby [address] [place] [address] Referring Orthopedics 07/18/22 Information Strategist Relationship Specialty Start Date End Date Charbel Rodriguez, DO [address] [place] [phone] [facility] 07/07/18 Charbel Cosby [address] [place] [address] Referring Orthopedics 07/18/22 Information Strategist Relationship Specialty Start Date End Date Charbel Rodriguez, DO [address] [place] [address] PCP - [facility] Medicine 07/07/18 Charbel Cosby [address] [place] [address] Referring Orthopedics 07/18/22 Information Strategist Relationship Specialty Start Date End Date Charbel Rodriguez, DO [address] [place] [phone] PCP - [facility] Medicine 07/07/18 Charbel Cosby [address] [place] [address] Referring Orthopedics 07/18/22 Information Strategist Relationship Specialty Start Date End Date Charbel Rodriguez, DO [address] [place] [address] PCP - [facility] Medicine 07/07/18 Charbel Cosby [address] [place] [address] Referring Orthopedics 07/18/22 Information Strategist Relationship Specialty Start Date End Date Charbel Rodriguez, DO [address] [place] [address] PCP - [facility] Medicine 07/07/18 [address]bel Cosby [address] [place] [address] Referring Orthopedics 07/18/22 Information Strategist Relationship Specialty Start Date End Date Charbel Rodriguez, DO [address] [place] [address] [facility] 07/07/18 Charbel Cosby [address] [place] [address] Referring Orthopedics 07/18/22 Information Strategist Relationship Specialty Start Date End Date Charbel Rodriguez, DO [address] [place] [address] [facility]CP - [facility] 07/07/18 Charbel Cosby [address] [place] [address] Referring Orthopedics 07/18/22 Information Strategist Relationship Specialty Start Date End Date Charbel Rodriguez, DO [address] [place] [address] [facility]CP - [facility] 07/07/18 [address]bel Cosby [address] [place] [address] Referring Orthopedics 07/18/22 Information Strategist Relationship Specialty Start Date End Date Charbel Rodriguez, [address] [place] [address] PCP - [facility] Medicine 07/07/18 Charbel Cosby [address] [place] [address] Referring Orthopedics 07/18/22 Information Strategist Relationship Specialty Start Date End Date Charbel Rodriguez DO [address] [place] [address] PCP - [facility] Medicine 07/07/18 Charbel Cosby [address] [place] [address] Referring Orthopedics 07/18/22 Information Strategist Relationship Specialty Start Date End Date Charbel Rodriguez DO [address] [place] [address] PCP - [facility] Medicine 07/07/18 Charbel Cosby [address] [place] [address] Referring Orthopedics 07/18/22 Information Strategist Relationship Specialty Start Date End Date Charbel Rodriguez DO [address] [place] [address] PCP - [facility] Medicine 07/07/18 Charbel Cosby [address] [place] [address] Referring Orthopedics 07/18/22 Goals (unrecognized section and [...] or prosecute any alcohol or drug abuse patient.[facility] HospitalIn the event this information is protected by the Federal Confidentiality of Alcohol and Drug Abuse Patient Records regulations: The Federal rules restrict any use of the information to criminally investigate or prosecute any alcohol or drug abuse patient.[facility] HospitalIn the event this information is protected by the Federal Confidentiality of Alcohol and Drug Abuse Patient Records regulations: The Federal rules restrict any use of the information to criminally investigate or prosecute any alcohol or drug abuse patient.[facility] HospitalIn the event this information is protected by the Federal Confidentiality of Alcohol and Drug Abuse Patient Records regulations: The Federal rules restrict any use of the information to criminally investigate or prosecute any alcohol or drug abuse patient.[facility] HospitalIn the event this information is protected by the Federal Confidentiality of Alcohol and Drug Abuse Patient Records regulations: The Federal rules restrict any use of the information to criminally investigate or prosecute any alcohol or drug abuse patient.[facility] the event this information is protected by the Federal Confidentiality of Alcohol and Drug Abuse Patient Records regulations: The Federal rules restrict any use of the information to criminally investigate or prosecute any alcohol or drug abuse patient.[facility] the event this information is protected by the Federal Confidentiality of Alcohol and Drug Abuse Patient Records regulations: The Federal rules restrict any use of the information to criminally investigate or prosecute any alcohol or drug abuse patient.[facility] the event this information is protected by the Federal Confidentiality of Alcohol and Drug Abuse Patient Records regulations: The Federal rules restrict any use of the information to criminally investigate or prosecute any alcohol or drug abuse patient.[facility] the event this information is protected by the Federal Confidentiality of Alcohol and Drug Abuse Patient Records regulations: The Federal rules restrict any use of the information to criminally investigate or prosecute any alcohol or drug abuse patient.[facility] the event this information is protected by the Federal Confidentiality of Alcohol and Drug Abuse Patient Records regulations: The Federal rules restrict any use of the information to criminally investigate or prosecute any alcohol or drug abuse patient.[facility] the event this information is protected by the Federal Confidentiality of Alcohol and Drug Abuse Patient Records regulations: The Federal rules restrict any use of the information to criminally investigate or prosecute any alcohol or drug abuse patient.[facility] the event this information is protected by the Federal Confidentiality of Alcohol and Drug Abuse Patient Records regulations: The Federal rules restrict any use of the information to criminally investigate or prosecute any alcohol or drug abuse patient.[facility] the event this information is protected by the Federal Confidentiality of Alcohol and Drug Abuse Patient Records regulations: The Federal rules restrict any use of the information to criminally investigate or prosecute any alcohol or drug abuse patient.[facility] the event this information is protected by the Federal Confidentiality of Alcohol and Drug Abuse Patient Records regulations: The Federal rules restrict any use of the information to criminally investigate or prosecute any alcohol or drug abuse patient.[facility] the event this information is protected by the Federal Confidentiality of Alcohol and Drug Abuse Patient Records regulations: The Federal rules restrict any use of the information to criminally investigate or prosecute any alcohol or drug abuse patient.[facility] the event this information is protected by the Federal Confidentiality of Alcohol and Drug Abuse Patient Records regulations: The Federal rules restrict any use of the information to criminally investigate or prosecute any alcohol or drug abuse patient.[facility] the event this information is protected by the Federal Confidentiality of Alcohol and Drug Abuse Patient Records regulations: The Federal rules restrict any use of the information to criminally investigate or prosecute any alcohol or drug abuse patient.[facility]In the event this information is protected by the Federal Confidentiality of Alcohol and Drug Abuse Patient Records regulations: The Federal rules restrict any use of the information to criminally investigate or prosecute any alcohol or drug abuse patient.[facility]In the event this information is protected by the Federal Confidentiality of Alcohol and Drug Abuse Patient Records regulations: The Federal rules restrict any use of the information to criminally investigate or prosecute any alcohol or drug abuse patient.[facility]In the event this information is protected by the Federal Confidentiality of Alcohol and Drug Abuse Patient Records regulations: The Federal rules restrict any use of the information to criminally investigate or prosecute any alcohol or drug abuse patient.[facility]In the event this information is protected by the Federal Confidentiality of Alcohol and Drug Abuse Patient Records regulations: The Federal rules restrict any use of the information to criminally investigate or prosecute any alcohol or drug abuse patient.[facility] Reason for Visit (unrecogniz ed section and content) Reason Comments Radio Gen RMP Specialty Diagnoses / Procedures Referred By Juve t Referred To Contact XR IMAGING Diagnoses Osteochondritis dissecans of right talus Procedures XR ANKLE GENERAL 3V AP/LAT/OBL RIGHT RADEX ANKLE COMPLETE MINIMUM [address] [place] [id number] [place] [address] [place] [id number] Referral ID Status Reason Start Date Expiration Date V isits Requested Visits Authorized [id number] Closed Auto-Generate d Referral 11/02/2022 11/30/2023 1 [...] Expiration Date V isits Requested Visits Authorized [id number] Closed Auto-Generate d Referral 01/02/2023 01/31/2024 1 [...] BE BASED ON THE PRIMARY CLINICAL RECORDS. [facility]. provides no warranty or guarantee of the accuracy or completeness of information in this document.
[2024-04-13] MEDS: 0.9 % SODIUM CHLORIDE 1,000 ML 1000 ML IV ×2 (05:43→06:37)
[2024-04-13 05:58] LABS: Basophils Percent Auto 0.2 % (0.2-2.0); Eosinophils Absolute Auto 0.2 10^3/uL (0.0-0.7); Eosinophils Percent Auto 1.2 % (0.9-7.0); Hematocrit 31.2 % (36.0-48.0); Hemoglobin 10.1 g/dL (12.0-16.0); Immature Granulocytes Abs Auto 0.14 10^3/uL (0.00-0.03); Immature Granulocytes Pct Auto 1.1 % (0.0-0.5); Lymphocytes Absolute Auto 3.6 10^3/uL (1.2-3.8); Lymphocytes Percent Auto 27.5 % (20.5-60.0); Mean Corpuscular HGB Conc 32.4 g/dL (29.9-35.2); Mean Corpuscular Hemoglobin 29.5 pg (26.7-34.0); Mean Corpuscular Volume 91.2 fL (81.0-99.0); Mean Platelet Volume 10.8 fL (9.5-13.5); Monocytes Absolute Auto 0.7 10^3/uL (0.3-0.8); Monocytes Percent Auto 5.7 % (1.7-12.0); Neutrophils Absolute Auto 8.3 10^3/uL (1.4-6.5); Neutrophils Percent Auto 64.3 % (43.0-75.0); Platelet Count 357 10^3/uL (150-450); Red Blood Count 3.42 10^6/uL (4.20-5.40); Red Cell Distribution Width 14.7 % (11.0-15.0); White Blood Count 12.9 10^3/uL (4.0-11.0)
[2024-04-13 06:01] LABS: Bilirubin Urine NEGATIVE (NEGATIVE); Blood Urine NEGATIVE (NEGATIVE); Clarity Urine CLEAR (CLEAR); Color Urine YELLOW (YELLOW); Glucose Urine UA NEGATIVE (NEGATIVE); Ketones Urine TRACE mg/dL (NEGATIVE); Leukocyte Esterase Urine NEGATIVE (NEGATIVE); Nitrite Urine NEGATIVE (NEGATIVE); Protein Urine NEGATIVE (NEG/TRACE); Specific Gravity Urine 1.025 (1.005-1.025); Urobilinogen Urine 0.2 EU/dL (0.2-1.0)
[2024-04-13] MEDS: METOCLOPRAMIDE HCL 10 MG/2 ML VIAL IVP (06:05)
[2024-04-13] MEDS: CITRIC ACID/SODIUM CITRATE 30 ML SOLUTION ORACIT SHOHL'S SOLN PO (06:05)
[2024-04-13] MEDS: FAMOTIDINE/PF 20 MG/2 ML VIAL IV (06:05)
[2024-04-13 06:08] LABS: Bacteria Urine MODERATE #/HPF (NONE SEEN); Crystals Seen? Seen #/HPF (None Seen); Mucus Urine NONE SEEN (NONE SEEN); RBC Urine 0-2 #/HPF (0-2); Squamous Epithelial Cell Urine FEW #/LPF (NONE/RARE); WBC Urine 0-2 #/HPF (NONE SEEN)
[2024-04-13 06:09] LABS: Amorphous Sediment Urine FEW; Cast Seen? NONE SEEN #/LPF (NONE SEEN); Urine Culture Indicated YES
[2024-04-13 06:10] LABS: Amphetamine Screen Urine NEGATIVE (NEGATIVE); Barbiturates Screen Urine NEGATIVE (NEGATIVE); Benzodiazepines Screen Urine NEGATIVE (NEGATIVE); Buprenorphine Screen Urine NEGATIVE (NEGATIVE); Cannabinoid Screen Urine NEGATIVE (NEGATIVE); Cocaine Screen Urine NEGATIVE (NEGATIVE); Methadone Screen Urine NEGATIVE (NEGATIVE); Methamphetamines Screen Urine NEGATIVE (NEGATIVE); Opiate Screen Urine NEGATIVE (NEGATIVE); Oxycodone Screen Urine NEGATIVE (NEGATIVE); Phencyclidine Screen Urine NEGATIVE (NEGATIVE); Tricyclic Antidepressant Urine NEGATIVE (NEGATIVE)
[2024-04-13] MEDS: CEFAZOLIN SODIUM/DEXTROSE,ISO 2 GM/50 ML PIGGYBACK IV ×2 (07:02→15:02)
[2024-04-13 07:31] LABS: Carbon Dioxide 22.8 mmol/L (21.0-32.0); Chloride 106 mmol/L (98-107); Potassium 3.8 mmol/L (3.5-5.1); Sodium 140 mmol/L (136-145)
--- NOTE | 2024-04-13 08:40 | P.OBPRC_ITS ---
Procedure Pre-op/Post-op diagnoses: Pre-Op/Post-Op Diagnoses Operation Date: 04/13/24 07:30 <No data on this case meets the specified criteria> Procedure: Procedures Operation Date: 04/13/24 07:30 Actual Procedure Side Surgeon p Repeat with Bilateral Salpingectomy Bilateral Ryan Rodriguez DO Chemistry Tutor: Mana Clay Estimated blood loss (mL): 700 Disposition: floor Anesthesia type: Local
--- NOTE | 2024-04-13 08:41 | PM.ONB ---
Brief Operative Note Date of procedure: 04/13/24 Pre-op diagnosis general: iup at term gestation, non measurable lower uterine segment on ultrasound(less than 2mm significant increase for uterine rupture), previous c/s times 3, desires permanent sterilization Post-op diagnosis: other (bloody amniotic fluid) Procedure: NAME OF PROCEDURE: [ section with bilateral salpingectomy ] PROCEDURE: Patient was taken back to the Operating Room where she was given a spinal anesthesia with Duramorph without difficulty. She was prepped and draped in the normal sterile fashion. A Pfannenstiel skin incision was then made 2?cm above the symphysis pubis and carried down to underlying rectus fascia using a Bovie. The fascia was incised in the midline and extended laterally using Fowler scissors. Two Holley clamps were placed on the superior aspect of the fascia and dissected off the underlying rectus muscles. The same was performed on the inferior aspect as well. The muscles were then in the midline. Peritoneum was identified and entered bluntly. The peritoneum was then extended superiorly and inferiorly with good visualization of the bladder. The bladder blade was inserted. Vesicouterine peritoneum was identified, tented up, and entered with Metzenbaum scissors. A bladder flap was then created digitally. The bladder blade was reinserted. A low transverse incision was made on the patient's uterus and extended laterally digitally. The infant was then delivered atraumatically after the bladder blade was removed in the cephalic position. The cord was clamped and cut. Cord blood was obtained. The was handed off to awaiting team. The patient's placenta was spontaneously delivered. The uterus was then exteriorized. The uterus was cleared of all clots and debris. The bladder blade was reinserted. The patient's uterine incision was closed using #0 Vicryl in a running lock fashion. Excellent hemostasis was assured.? The rt tube was identified and grasped with babock, the ligasure was used to transect and ligate the tube in its entirity, this was done on the contralateral side as well. The uterus was then returned to the patient's abdomen. The patient's abdomen was copiously irrigated using warm saline. Peritoneal gutters were cleared of all clots and debris. Again excellent hemostasis was assured. The patient's fascia was closed using #0 Vicryl in a running fashion. The patient's skin was closed using 4-0 Vicryl subcuticularly. The patient tolerated the procedure well. Sponge, lap, and needle counts were correct x2. The patient was taken to the Recovery Room in stable condition. Anesthesia: spinal Surgeon: Ryan Rodriguez [employer]: Mana Clay Estimated blood loss (mL): 700 Pathology: other (placenta) Condition: stable Disposition: floor Urinary Catheter Management Urinary Catheter Management Urethral: Cath placed during this visit: no
[2024-04-13] MEDS: LACTATED RINGER'S SOLUTION 1,000 ML 50 ML IV (08:46)
[2024-04-13] MEDS: BUPIVACAINE LIPOSOME/PF 266 MG/13.3 ML VIAL INJ (09:00)
[2024-04-13] MEDS: BUPIVACAINE HCL 0.5% PF 50 MG/10 ML VIAL INJ (09:00)
[2024-04-13] MEDS: 0.9 % SODIUM CHLORIDE 10 ML VIAL 30 ML INJ (09:00)
[2024-04-13] MEDS: OXYTOCIN/0.9 % SODIUM CHLORIDE 20 UNITS/1,000 ML PLAST..BAG 125 UNIT IV (09:27)
[2024-04-13] MEDS: KETOROLAC TROMETHAMINE 30 MG/ML VIAL IVP ×2 (15:03→20:46)
[2024-04-13] MEDS: ACETAMINOPHEN 500 MG TABLET 1000 MG PO (16:57)
[2024-04-13] MEDS: ENOXAPARIN SODIUM 40 MG/0.4 ML SYRINGE SUBQ (20:46)
[2024-04-14] VITALS (8 sets, daily range): BP systolic 99–116; BP diastolic 53–78; PULSE 54–73; TEMP 36.4–36.7
[2024-04-14] MEDS: ACETAMINOPHEN 500 MG TABLET 1000 MG PO ×3 (00:50→16:57)
[2024-04-14] MEDS: KETOROLAC TROMETHAMINE 30 MG/ML VIAL IVP (03:20)
[2024-04-14 06:12] LABS: Basophils Percent Auto 0.3 % (0.2-2.0); Eosinophils Absolute Auto 0.2 10^3/uL (0.0-0.7); Eosinophils Percent Auto 1.7 % (0.9-7.0); Hematocrit 25.6 % (36.0-48.0); Hemoglobin 8.1 g/dL (12.0-16.0); Immature Granulocytes Abs Auto 0.13 10^3/uL (0.00-0.03); Lymphocytes Absolute Auto 3.4 10^3/uL (1.2-3.8); Lymphocytes Percent Auto 25.5 % (20.5-60.0); Mean Corpuscular HGB Conc 31.6 g/dL (29.9-35.2); Mean Corpuscular Hemoglobin 29.1 pg (26.7-34.0); Mean Corpuscular Volume 92.1 fL (81.0-99.0); Mean Platelet Volume 10.4 fL (9.5-13.5); Monocytes Absolute Auto 1.1 10^3/uL (0.3-0.8); Monocytes Percent Auto 7.9 % (1.7-12.0); Neutrophils Absolute Auto 8.5 10^3/uL (1.4-6.5); Neutrophils Percent Auto 63.6 % (43.0-75.0); Platelet Count 271 10^3/uL (150-450); Red Blood Count 2.78 10^6/uL (4.20-5.40); Red Cell Distribution Width 14.8 % (11.0-15.0); White Blood Count 13.3 10^3/uL (4.0-11.0)
[2024-04-14] MEDS: DOCUSATE SODIUM 100 MG CAPSULE PO ×2 (08:29→21:50)
[2024-04-14] MEDS: IBUPROFEN 400 MG TABLET 800 MG PO ×3 (08:29→21:50)
--- NOTE | 2024-04-14 08:32 | P.OBPN_ITS ---
OB - PN: Subj Subjective Patient comments: no complaints [place] status: doing well [place] feeding status: breast and bottle feeding Exam Constitutional Vital Signs, click to edit/add: Last Vital Signs Temp 97.8 F 04/14/24 08:17 Pulse 68 04/14/24 07:45 Resp 18 04/14/24 08:17 BP 99/65 04/14/24 07:45 Pulse Ox 98 04/13/24 10:46 O2 Del Method Room Air 04/14/24 07:50 Documenting provider has reviewed patient's vital signs: yes Common normals: no apparent distress, average body habitus, oriented x3, no limitations, healthy appearing, alert and well nourished General appearance: cooperative HENMT Common normals: normocephalic Eye Common normals: EOMs intact bilaterally Neck & C-Spine Common normals: full ROM Lymph Lymphatic: no lymphadenopathy noted Chest Common normals: inspection of chest normal Respiratory Common normals: normal respiratory effort, no retractions, no use of accessory muscles, clear to auscultation bilaterally and percussion normal Cardio Common normals: regular rate and regular rhythm Rate: regular rate Rhythm: regular rhythm GI Common normals: Normal to inspection, nondistended, normoactive bowel sounds present Inspection: normal to inspection Common normals: no CVA tenderness Back & Pelvis Common normals: no CVA tenderness Extremity Common normals: normal to inspection Neuro Common normals: oriented x3 Psych Common normals: mental status grossly normal, thought process normal, cooperative, affect normal, speech normal, activity/motor behavior normal, denies hallucinations, denies homicidal ideation and denies suicidal ideation Results Labs Labs: Short CBC 04/14/24 Range/Units 06:05 WBC 13.3 H (4.0-11.0) 10^3/uL Hgb 8.1 L (12.0-16.0) g/dL Hct 25.6 L (36.0-48.0) % Plt Count 271 (150-450) 10^3/uL Urinary Catheter Management Urinary Catheter Management Urethral: Cath placed during this visit: yes, but has since been removed by the nurse Insertion date: 04/13/24 Insertion time: 08:00 Removal date: 04/14/24 Removal time: 01:20 OB - PN: A/P Plan - Plan: routine postop care Time Spent with Patient Time: Total time spent is greater than 50% in coordination of care (as documented) at patient's floor/unit and/or counseling patient: Total time spent with greater than 50% in coordination of care (as documented) at patient's floor/unit and/or counseling patient: less than 15 minutes
[2024-04-14] MEDS: SERTRALINE HCL 50 MG TABLET 25 MG PO (09:15)
[2024-04-14] MEDS: FERROUS SULFATE 325 MG TABLET PO ×2 (09:15→21:50)
[2024-04-14] MEDS: OXYCODONE HCL 5 MG TABLET PO ×2 (13:00→18:25)
[2024-04-14] MEDS: ONDANSETRON 4 MG RAPDIS TABLET PO (19:53)
[2024-04-14] MEDS: ENOXAPARIN SODIUM 40 MG/0.4 ML SYRINGE SUBQ (19:53)
[2024-04-15] VITALS (7 sets, daily range): BP systolic 108–110; BP diastolic 53–61; PULSE 47–65; TEMP 36.9–37.1; O2SAT 98
[2024-04-15] MEDS: ACETAMINOPHEN 500 MG TABLET 1000 MG PO ×3 (01:13→16:02)
[2024-04-15] MEDS: IBUPROFEN 400 MG TABLET 800 MG PO ×4 (03:53→22:24)
--- NOTE | 2024-04-15 07:57 | P.OBPN_ITS ---
OB - PN: Subj Subjective Patient comments: no complaints and pain well controlled [place] status: doing well Exam Constitutional Vital Signs, click to edit/add: Last Vital Signs Temp 98.1 F 04/14/24 22:59 Pulse 66 04/14/24 22:58 Resp 18 04/14/24 23:00 BP 110/53 04/14/24 22:58 Pulse Ox 98 04/13/24 10:46 O2 Del Method Room Air 04/14/24 23:00 Documenting provider has reviewed patient's vital signs: yes Common normals: no apparent distress Respiratory Common normals: normal respiratory effort and clear to auscultation bilaterally Cardio Common normals: regular rate and regular rhythm GI Common normals: Normal to inspection, nondistended, normoactive bowel sounds present Extremity Common normals: no clubbing, cyanosis or edema and no calf tenderness Urinary Catheter Management Urinary Catheter Management Urethral: Cath placed during this visit: yes, but has since been removed by the nurse Insertion date: 04/13/24 Insertion time: 08:00 Removal date: 04/14/24 Removal time: 01:20 OB - PN: A/P Plan - day: 2 Plan: routine postop care, discharge home and follow up 6 weeks Time Spent with Patient Time: Total time spent is greater than 50% in coordination of care (as documented) at patient's floor/unit and/or counseling patient: Total time spent with greater than 50% in coordination of care (as documented) at patient's floor/unit and/or counseling patient: less than 15 minutes
[2024-04-15] MEDS: SERTRALINE HCL 50 MG TABLET 25 MG PO (08:18)
[2024-04-15] MEDS: DOCUSATE SODIUM 100 MG CAPSULE PO ×2 (08:18→20:03)
[2024-04-15] MEDS: FERROUS SULFATE 325 MG TABLET PO ×2 (09:30→20:03)
[2024-04-15] MEDS: OXYCODONE HCL 5 MG TABLET PO (10:59)
[2024-04-15] MEDS: SIMETHICONE 80 MG TAB.CHEW PO (20:03)
[2024-04-15] MEDS: ONDANSETRON 4 MG RAPDIS TABLET PO (20:03)
[2024-04-15] MEDS: ENOXAPARIN SODIUM 40 MG/0.4 ML SYRINGE SUBQ (20:23)
[2024-04-16] MEDS: ACETAMINOPHEN 500 MG TABLET 1000 MG PO ×2 (00:11→08:19)
--- NOTE | 2024-04-16 00:50 | P.OBPN_ITS ---
OB - PN: Subj Subjective Patient comments: no complaints and pain well controlled [place] status: doing well Exam Constitutional Vital Signs, click to edit/add: Last Vital Signs Temp 98.7 F 04/15/24 22:46 Pulse 61 04/15/24 22:46 Resp 16 04/15/24 22:46 BP 110/58 04/15/24 22:46 Pulse Ox 98 04/15/24 22:46 O2 Del Method Room Air 04/15/24 22:46 Documenting provider has reviewed patient's vital signs: yes Common normals: no apparent distress Respiratory Common normals: normal respiratory effort and clear to auscultation bilaterally Cardio Common normals: regular rate and regular rhythm GI Common normals: Normal to inspection, nondistended, normoactive bowel sounds present Extremity Common normals: no clubbing, cyanosis or edema and no calf tenderness Urinary Catheter Management Urinary Catheter Management Urethral: Cath placed during this visit: yes, but has since been removed by the nurse Insertion date: 04/13/24 Insertion time: 08:00 Removal date: 04/14/24 Removal time: 01:20 OB - PN: A/P Plan - Plan: routine postop care, discharge home and other (fu 1wk) Time Spent with Patient Time: Total time spent is greater than 50% in coordination of care (as documented) at patient's floor/unit and/or counseling patient: Total time spent with greater than 50% in coordination of care (as documented) at patient's floor/unit and/or counseling patient: less than 15 minutes
[2024-04-16] MEDS: IBUPROFEN 400 MG TABLET 800 MG PO ×2 (06:08→13:25)
[2024-04-16 08:20] VITALS: TEMP 36.8
[2024-04-16] MEDS: SERTRALINE HCL 50 MG TABLET 25 MG PO (08:20)
[2024-04-16] MEDS: DOCUSATE SODIUM 100 MG CAPSULE PO (08:20)
[2024-04-16] MEDS: FERROUS SULFATE 325 MG TABLET PO (08:20)
[2024-04-16 08:24] VITALS: BP 115/71; PULSE 63
== END 2024-04-16 14:25 | disposition home or self-care (01) | DRG 539 ==
PROVIDERS: Anesthesiology; Admitting Provider Obstetrics & Gynecology; PCP Family Medicine; Visit Provider Obstetrics & Gynecology
PROC: 10D00Z1 Extraction of Products of Conception, Low, Open Approach (ICD-10-PCS; CPT 59514; principal; 2024-04-13 07:30)
DX: O34.211 Maternal care for low transverse scar from previous cesarean delivery (principal); O99.02 Anemia complicating childbirth; O99.824 Streptococcus B carrier state complicating childbirth; Z3A.37 37 weeks gestation of pregnancy; Z30.2 Encounter for sterilization; Z37.0 Single live birth; Z87.891 Personal history of nicotine dependence; Z23 Encounter for immunization; Z79.899 Other long term (current) drug therapy
CPT/HCPCS: 36415; 51702; 64488; 80051; 80307; 81001; 85025; 86850; 86900; 86901; 87086; 88302; 88307; 94667; 94668; 96372; 96374; 96375; 96376; J0131; J0665; J0690; J1100; J1650; J1885; J2274; J2371; J2405; J2590; J2765; Q0162

== ENCOUNTER 2024-04-25 20:26 | Emergency (ER) | payer OTHER, SELFPAY ==
[2024-04-25 20:39] VITALS: BP 142/114; PULSE 80; TEMP 36.9; O2SAT 99; BMI 42.8
[2024-04-25 21:13] VITALS: BP 112/81; PULSE 80; O2SAT 99
--- NOTE | 2024-04-25 21:33 | PC.NURSE ---
Recent c cection, incision has serosang. drainage at left side of incision. Incision is well approx. and without redness.
--- NOTE | 2024-04-25 21:35 | ED.ABDPAIN1 ---
HPI - Abdominal Pain General Chief Complaint: Abdominal Pain Stated Complaint: last saturday c section, a lot of leaking fluid Time Seen by Provider: 04/25/24 21:30 Source: patient Mode of arrival: walk-in Limitations: no limitations History of Present Illness HPI narrative: 04/14. This is her 4th . Started leaking from the incision today. No pain or fever. no systemic symptoms of nausea Related Data Previous Rx's ?Medication ?Instructions ?Recorded ibuprofen 800 mg tablet 800 mg PO Q8H PRN pain 14 days #40 04/13/24 tabs oxycodone-acetaminophen 5 mg-325 1 tab PO Q6H PRN pain 7 days #28 04/13/24 mg tablet (Percocet) tabs Allergies Allergy/AdvReac Type Severity Reaction Status Date / Time naproxen [From Aleve] Allergy Severe Verified 04/25/24 20:45 latex Allergy Verified 04/25/24 20:45 Review of Systems ROS Status of ROS 10 or more systems reviewed and unremarkable except as noted in history and below [facility] Medical History (Updated 04/26/24 @ 00:20 by Ang Curiel MD) Frequent headaches ?R51.9 - Headache, unspecified (ICD-10) GERD (gastroesophageal reflux disease) ?K21.9 - Gastro-esophageal reflux disease without esophagitis (ICD-10) Seizures ?R56.9 - Unspecified convulsions (ICD-10) Irregular heart beat ?I49.9 - Cardiac arrhythmia, unspecified (ICD-10) PVC (premature ventricular contraction) ?I49.3 - Ventricular premature depolarization (ICD-10) Anemia ?D64.9 - Anemia, unspecified (ICD-10) Depression ?F32.A - Depression, unspecified (ICD-10) Anxiety ?F41.9 - Anxiety disorder, unspecified (ICD-10) Surgical History (Updated 04/13/24 @ 06:32 by Alber Avila) Hx of section ?Z98.891 - History of uterine scar from previous surgery (ICD-10) Hx of tonsillectomy ?Z90.89 - Acquired absence of other organs (ICD-10) History of ankle surgery ?Z98.890 - Other specified postprocedural states (ICD-10) Family History (Updated 04/13/24 @ 06:06 by Alber Avila) Grandmother Family history of CHF (congestive heart failure) Family history of diabetes mellitus Atrial fibrillation Grandfather Family history of CHF (congestive heart failure) Family history of hypertension Aunt Family history of myocardial infarction Uncle Family history of stroke Atrial fibrillation Brother Cerebral palsy Social History (Updated 04/13/24 @ 06:39 by Alber Avila) Within the past year, how often did you have a drink containing alcohol: never Within the past year, how often did you have six or more drinks on one occasion: never Score interpretation: A score less than 3 is consistent with normal alcohol consumption. Smoking status: Former smoker Non-prescribed substance use: denies use Highest level of school completed/degree received: high school graduate Are you now , , , , never or living with a partner: living with partner In a typical week, how many times do you talk on the telephone with family, friends, or neighbors: 3 or more times per week How often do you get together with friends or relatives: 3 or more times per week Do you think of yourself as: straight/heterosexual Gender Identity: female Exam Constitutional Vital Signs, click to edit/add: Last Vital Signs Temp 98.5 F 04/25/24 20:39 Pulse 80 04/25/24 21:13 Resp 18 04/25/24 21:13 BP 112/81 04/25/24 21:13 Pulse Ox 99 04/25/24 21:13 O2 Del Method Room Air 04/25/24 21:13 Common normals: no apparent distress, average body habitus, oriented x3, no limitations, healthy appearing and alert [facility] Common normals: normocephalic and head/scalp atraumatic Eye Common normals: EOMs intact bilaterally and conjunctivae normal Respiratory Common normals: normal respiratory effort, no retractions, no use of accessory muscles and clear to auscultation bilaterally Cardio Common normals: regular rate, regular rhythm, S1 normal heart sound and S2 normal heart sound Other: C/S incision site looks clean. Does have minor opening draining serous liquid. nontender. No erythema. Incision moist as patient has a pannus Extremity Common normals: normal to inspection and full ROM Neuro Common normals: oriented x3, CN's II-XII intact bilaterally and moves all extremities Psych Appearance: grossly normal Course Vital Signs Vital signs: Vital Signs Temperature 98.5 F 04/25/24 20:39 Pulse Rate 80 04/25/24 20:39 Respiratory Rate 16 04/25/24 20:39 Blood Pressure 142/114 H 04/25/24 20:39 Pulse Oximetry 99 04/25/24 20:39 Oxygen Delivery Method Room Air 04/25/24 20:39 Temperature 98.5 F 04/25/24 20:39 Pulse Rate 80 04/25/24 21:13 Respiratory Rate 18 04/25/24 21:13 Blood Pressure 112/81 04/25/24 21:13 Pulse Oximetry 99 04/25/24 21:13 Oxygen Delivery Method Room Air 04/25/24 21:13 MDM - Abdominal Pain MDM Narrative Medical decision making narrative: patient s/p 4th C/S 04/12/24. Now presents with drainage from C section incision from small opening. No evidence of infection clinically. CT with finding of seroma. Labs WNL. Patient informed of the finding and discharged home to follow up with her surgeon Lab Data Labs: Lab Results 04/25/24 Range/Units 21:47 WBC 7.9 (4.0-11.0) 10^3/uL RBC 3.82 L (4.20-5.40) 10^6/uL Hgb 11.2 L (12.0-16.0) g/dL Hct 35.7 L (36.0-48.0) % MCV 93.5 (81.0-99.0) fL MCH 29.3 (26.7-34.0) pg MCHC 31.4 (29.9-35.2) g/dL RDW 14.4 (11.0-15.0) % Plt Count 458 H (150-450) 10^3/uL MPV 9.3 L (9.5-13.5) fL Neut % (Auto) 45.8 (43.0-75.0) % Lymph % (Auto) 42.6 (20.5-60.0) % [place] % (Auto) 6.6 (1.7-12.0) % Eos % (Auto) 4.4 (0.9-7.0) % Baso % (Auto) 0.3 (0.2-2.0) % Neut # (Auto) 3.6 (1.4-6.5) 10^3/uL Lymph # (Auto) 3.4 (1.2-3.8) 10^3/uL [place] # (Auto) 0.5 (0.3-0.8) 10^3/uL Eos # (Auto) 0.4 (0.0-0.7) 10^3/uL Baso # (Auto) 0.0 (0.0-0.1) 10^3/uL Abs Immat Gran (auto) 0.02 (0.00-0.03) 10^3/uL Imm/Tot Granulo (auto) 0.3 (0.0-0.5) % Sodium 140 (136-145) mmol/L Potassium 4.1 (3.5-5.1) mmol/L Chloride 103 (98-107) mmol/L Carbon Dioxide 28.4 (21.0-32.0) mmol/L Anion Gap 12.7 BUN 19.0 H (7.0-18.0) mg/dL Creatinine 0.78 (0.55-1.02) mg/dL Est GFR ( Amer) >60 (>=60) Est GFR (Non-Af Amer) >60 (>=60) BUN/Creatinine Ratio 24.4 Glucose 96 (74-106) mg/dL Lactate 0.9 (0.4-2.0) mmol/L Calcium 9.4 (8.5-10.1) mg/dL Total Bilirubin 0.1 L (0.2-1.0) mg/dL AST 9 L (15-37) U/L ALT 16 (14-59) U/L Alkaline Phosphatase 88 (46-116) U/L Total Protein 7.2 (6.4-8.2) g/dL Albumin 2.9 L (3.4-5.0) g/dL Globulin 4.3 g/dL Albumin/Globulin Ratio 0.7 Imaging Data Abdominal x-ray: Radiologist's impression: ITS Impressions Abdomen/Pelvis CT 04/25/24 21:38 IMPRESSION: 1. Elongated horizontal fluid collection in the lower anterior abdominal wall measuring 18.3 x 1.3 x 5.4 cm most likely secondary to postsurgical seroma. 2. Expected enlargement of the uterus. There is thickening of the endometrial canal with internal debris. The possibility of retained products of conception cannot be excluded. This could be better characterized with pelvic sonography. Electronically authenticated by: RAFA AMANDA Date: 04/26/2024 00:01 Discharge Plan Discharge Stand Alone Forms: Portal Instructions Chief Complaint: Abdominal Pain Clinical Impression: Seroma after procedure Patient Disposition: Home, Self-Care Prescriptions / Home Meds: No Action ibuprofen 800 mg tablet 800 mg PO Q8H PRN (Reason: pain) 14 Days Qty: 40 0RF oxycodone-acetaminophen [Percocet] 5-325 mg tablet 1 tab PO Q6H PRN (Reason: pain) 7 Days Qty: 28 0RF Print Language: Macedonian Instructions: Seroma (DC) Additional Instructions: follow up with Dr Rodriguez next week. change dressing often Referrals: CHARBEL RODRIGUEZ [Primary Care Provider] - 1 week
--- NOTE | 2024-04-25 21:38 | CT_ITS ---
[address] [address] Patient Name: RUSSELL WELLS MRN: [id number] date: 1995 Sex: F Assigned Patient Location: ER Current Patient Location: ER Accession/Order Number: [id number] Exam Date: 04/25/2024 22:30 Report Date: 04/26/2024 00:01 At the request of: CHRISTIANO PARKINSON Procedure: CT abdomen pelvis w con CT ABDOMEN AND PELVIS WITH CONTRAST: INDICATION: post op incision drainage C/Section. COMPARISON: None. TECHNIQUE:Multiple thin section transaxial slices were acquired through the abdomen and pelvis with intravenous contrast. Coronal and sagittal reconstructed images were reviewed. Oral contrastWas not administered. FINDINGS: LOWER CHEST: The lower chest is unremarkable. LIVER: The liver is unremarkable. GALLBLADDER AND BILIARY SYSTEM: No obvious ductal dilation. No calcified stones. SPLEEN: The spleen is unremarkable. PANCREAS: The pancreas is unremarkable. ADRENAL GLANDS: The adrenal glands are unremarkable. KIDNEYS AND URETERS: There is no hydronephrosis of the kidneys.No obstructing urologic calcifications are present. VASCULATURE: Vascularity is unremarkable. PERITONEUM/RETROPERITONEUM: No free air or free fluid is present. LYMPH NODES: No suspicious lymphadenopathy. GASTROINTESTINAL TRACT: The bowel is normal in caliber.No acute inflammation is present in the bowel.The appendix is visualized and is not inflamed. BLADDER: The urinary bladder is unremarkable. REPRODUCTIVE SYSTEM: There is expected enlargement of the uterus. There is thickening of the endometrial canal with internal debris. The possibility of retained products of conception is not excluded. BODY WALL: There is an elongated horizontal fluid collection in the lower anterior abdominal wall at the site of incision from prior section measuring 18.3 x 1.3 x 5.4 cm. This is most likely due to postsurgical seroma.. BONES: No acute findings in the osseous structures. CT/CT abdomen pelvis w con IMPRESSION: 1. Elongated horizontal fluid collection in the lower anterior abdominal wall measuring 18.3 x 1.3 x 5.4 cm most likely secondary to postsurgical seroma. 2. Expected enlargement of the uterus. There is thickening of the endometrial canal with internal debris. The possibility of retained products of conception cannot be excluded. This could be better characterized with pelvic sonography. Electronically authenticated by: RAFA AMANDA Date: 04/26/2024 00:01
[2024-04-25 21:55] LABS: Basophils Percent Auto 0.3 % (0.2-2.0); Eosinophils Absolute Auto 0.4 10^3/uL (0.0-0.7); Eosinophils Percent Auto 4.4 % (0.9-7.0); Hematocrit 35.7 % (36.0-48.0); Hemoglobin 11.2 g/dL (12.0-16.0); Immature Granulocytes Abs Auto 0.02 10^3/uL (0.00-0.03); Immature Granulocytes Pct Auto 0.3 % (0.0-0.5); Lymphocytes Absolute Auto 3.4 10^3/uL (1.2-3.8); Lymphocytes Percent Auto 42.6 % (20.5-60.0); Mean Corpuscular HGB Conc 31.4 g/dL (29.9-35.2); Mean Corpuscular Hemoglobin 29.3 pg (26.7-34.0); Mean Corpuscular Volume 93.5 fL (81.0-99.0); Mean Platelet Volume 9.3 fL (9.5-13.5); Monocytes Absolute Auto 0.5 10^3/uL (0.3-0.8); Monocytes Percent Auto 6.6 % (1.7-12.0); Neutrophils Absolute Auto 3.6 10^3/uL (1.4-6.5); Neutrophils Percent Auto 45.8 % (43.0-75.0); Platelet Count 458 10^3/uL (150-450); Red Blood Count 3.82 10^6/uL (4.20-5.40); Red Cell Distribution Width 14.4 % (11.0-15.0); White Blood Count 7.9 10^3/uL (4.0-11.0)
[2024-04-25 22:10] LABS: Alanine Aminotransferase 16 U/L (14-59); Albumin Globulin Ratio 0.7; Albumin Level 2.9 g/dL (3.4-5.0); Alkaline Phosphatase 88 U/L (46-116); Anion Gap 12.7; Aspartate Amino Transferase 9 U/L (15-37); BUN Creatinine Ratio 24.4; Bilirubin Total 0.1 mg/dL (0.2-1.0); Calcium 9.4 mg/dL (8.5-10.1); Carbon Dioxide 28.4 mmol/L (21.0-32.0); Chloride 103 mmol/L (98-107); Estimated GFR (African America >60 (>=60); Estimated GFR (Non-African Ame >60 (>=60); Globulin 4.3 g/dL; Glucose 96 mg/dL (74-106); Potassium 4.1 mmol/L (3.5-5.1); Sodium 140 mmol/L (136-145); Total Protein 7.2 g/dL (6.4-8.2)
[2024-04-25 22:12] LABS: Lactate/Lactic Acid 0.9 mmol/L (0.4-2.0)
--- OUTSIDE RECORDS SUMMARY | 2024-04-25 22:29 | XMS_ITS | CCD ---
Author Organization [facility] Care Team Providers Care Grain Drier Name Role Phone DO Charbel Rodriguez Primary Care Provider [phone] ANGELY Yee Emergency Provider Charbel Rodriguez DO Primary Care Provider Charbel [...] GIRROSEY, DR BARGER Attending Unavailable GIRROSEY, DR BRAGER Primary Care Unavailable GIRROSEY, DR BARGER Consulting [...] Unavailable Charbel Rodriguez DO Primary Care Provider [phone] DO Charbel Rodriguez Primary Care Provider Ryan Rodriguez Attending Provider Ryan Rodriguez Admitting Unavailable Michael, Ryan Attending Unavailable Charbel Rodriguez Primary Care Unavailable VISCI, SONIA Jerez Attending Unavailable VISCI, SONIA Jerez Attending Unavailable VISCI, SONIA Jerez Attending Unavailable KIEPERT, JOHNSON Jerez Attending Unavailable VISCI, SONIA Jerez Attending Unavailable VISCI, SONIA A Referring Unavailable VISCI, SONIA A Referring Unavailable VISCI, SONIA Jerez Attending Unavailable VISCI, SONIA Solitario Attending Unavailable VISCI, SONIA A Referring Unavailable MICHAEL, RYAN Attending Unavailable MICHAEL, RYAN Attending Unavailable MICHAEL, RYAN Attending Unavailable MICHAEL, RYAN Attending Unavailable VISCI, SONIA A Referring Unavailable VISCI, SONIA A Attending Unavailable Allergies Allergy Classification Reported Allergen(s) Allergy Type Date of Onset Reaction(s) Facility Ethinyl Estradiol (1 source) Ethinyl Estradiol Drug Allergy 07-15-20 23 [facility] Latex (1 source) Latex Substance Allergy 07-15-20 23 Rash, rash,blisters [facility] Levonorgestrel (1 source) Levonorgestrel Drug Allergy 07-15-20 23 [facility] NSAIDs (1 source) Naproxen Drug Allergy 07-15-20 23 [facility] Phentermine (1 source) Phentermine Drug Allergy 07-15-20 23 chest pain/ elevated BP [facility] tomato allergenic extract (1 source) tomato allergenic extract Drug Allergy 07-15-20 23 stomach upset [facility] (20 sources) Latex; Translations: [Latex] Propensity to adverse reactions 07-07-20 22 Rash, Rash, Blisters, rash,blisters [facility] (12 sources) Naproxen; Translations: [NAPROXEN] Drug Allergy 08-01-20 18 [facility] (14 sources) Naproxen; Translations: [Aleve] Drug Allergy 11-25-19 21 Hives [facility] Repository (13 sources) Seasonal allergy Propensity to adverse reactions Unknown [facility] [employer] Other (13 sources) Tomato Products Propensity to adverse reactions stomach upset [facility] [employer] Other (1 source) natural latex rubber Drug allergy (disorder) 09-04-20 [facility] (8 sources) Seasonale Drug allergy Unknown [facility] [employer] Other (8 sources) Tomatoes Drug allergy stomach upset [facility] [employer] Other (5 sources) Phentermine Drug Allergy chest pain/ elevated BP [facility] [employer] Other (1 source) Ethinyl Estradiol Drug Allergy 07-15-20 [facility] Repository (1 source) Levonorgestrel Drug Allergy 07-15-20 [facility] Repository (1 source) Phentermine Drug Allergy 07-15-20 [facility] Repository (1 source) tomato allergenic extract Drug Allergy 07-15-20 [facility] Repository Medications Current Medications Medication Drug Class(es) Dates Sig (Normalized) Sig (Original) brompheniramine maleate 0.4 mg/ml / dextromethorphan hydrobromide 2 mg/ml / pseudoephedrine hydrochloride 6 mg/ml oral solution (5 sources) alpha-Adrenergic Agonist, Uncompetitive H-jqjxbu-D-aspartat e Receptor Antagonist, Sigma-1 Agonist Start: 12-07-19 23 take 10 mL by mouth every six hours Fttrkaaxl-Cmcsiuca-YS 30-2-10 MG/5ML 10 mL Orally every 6 hours for 5 days Nov, Active losartan potassium 25 mg oral tablet (1 source) Angiotensin 2 Receptor Freedom Start: 04-26-20 23 take 1 tablet by mouth every twenty-four hours Losartan Potassium 25 MG 1 tablet Orally Once a day for 30 days Mar, Active meloxicam 15 mg oral tablet (3 sources) Nonsteroidal Anti-inflammatory Drug Start: 06-03-20 23 take 1 tablet by mouth every twenty-four hours Meloxicam 15 MG 1 tablet Orally Once a day May, Active methylPREDNISolone 4 mg oral tablet (5 sources) Corticosteroid Start: 12-07-19 methylPREDNISolone 4 MG as directed Orally for daily dose take half with breakfast, half with dinner for 6 days Nov, Active oxyCODONE hydrochloride 5 mg oral tablet (3 [...] / HYDROcodone bitartrate 5 mg oral tablet (2 sources) Opioid Agonist Start: End: Hydrocodone-Acetamino phen Discontinued 1 TAB PO As Directed February 12, 2018 12:00am March 31, 2018 2:07pm ALPRAZolam 0.5 mg oral tablet (4 sources) Benzodiazepine Start: End: take 0.5 mg by mouth once daily Alprazolam Discontinued 0.5 MG PO Daily November 29, 2017 1:00am April 18, 2021 7:19pm Comment on above: Take 0.5 mg by mouth as needed. atropine sulfate 0.025 mg / diphenoxylate hydrochloride 2.5 mg oral tablet (2 sources) Anticholinergic, Cholinergic Muscarinic Antagonist, Antidiarrheal Start: End: [...] on above: Take 1 capsule by mo [facility] four times daily. cyclobenzaprine hydrochloride 5 [...] on above: Take 1 tablet by viral three times daily as needed. 1 in the morning, 1 in the after, 2 at hs prn for back pain docusate sodium 100 mg oral capsule (2 sources) Start: End: take 1 capsule by mouth [...] on above: Take 1 tablet by viral once daily. fluconazole 150 mg oral tablet (9 sources) Azole Antifungal Start: take 1 tablet by mouth every twenty-four hours Diflucan 150 MG 1 tablet Orally qd May, Not-Taking HYDROmorphone hydrochloride 2 mg oral tablet (2 sources) Opioid Agonist Start: End: take 2 mg by mouth every four hours Hydromorphone Discontinued 2 MG PO Q4H 10 November 30, 2021 July 07, 2022 6:05pm hydrOXYzine hydrochloride 25 mg oral tablet (2 sources) Antihistamine Start: End: take 25 mg by [...] Jan, Not-Taking metoclopramide 10 mg oral tablet (2 sources) Dopamine-2 Receptor Antagonist Start: 05-30-2021 End: 08-31-2021 take 1 tablet by mouth every six hours Metoclopramide Hcl (Reglan) 10 mg tablet Discontinued 10 MG PO Q6H May 30, 2021 12:00am August 31, 2021 12:52pm metroNIDAZOLE 500 mg oral tablet (2 sources) Nitroimidazole Antimicrobial Start: 02-12-2018 End: 03-31-2018 take 1 tablet by mouth twice daily Metronidazole (Flagyl) 500 mg tablet Discontinued 500 MG PO Twice daily February 12, 2018 12:00am March 31, 2018 2:07pm omeprazole 20 mg delayed release oral capsule (20 sources) Proton Pump Inhibitor Start: 07-21-2014 End: 08-14-2022 Omeprazole Discontinued 20 MG PO As Directed February 12, 2018 12:00am April 18, 2021 7:19pm Comment on above: Take 20 mg by mouth once daily. ondansetron 4 mg disintegrating oral tablet (6 sources) Serotonin-3 Receptor Antagonist Start: 08-31-2021 End: [...] Problem Date Documented Date Episodic/Chronic Abdominal pain (3 sources) Abdominal pain; Translations: [Unspecified abdominal pain] 11-29-2017 Episodic Anxiety disorders (20 sources) Anxiety; Translations: [Anxiety disorder, unspecified] Onset: 10-18-2022 10-18-2022 Chronic Cardiac dysrhythmias (20 sources) Ventricular premature beats; Translations: [Ventricular premature depolarization] 07-02-2018 Chronic Cardiac dysrhythmias (20 sources) Bradycardia; Translations: [Bradycardia, unspecified] Onset: 09-02-2018 07-02-2018 Episodic Diseases of white blood cells (15 sources) Leukocytosis; Translations: [Elevated white blood cell count, unspecified] Chronic Disorders usually diagnosed in infancy, childhood, or adolescence (20 sources) Separation anxiety; Translations: [Separation anxiety disorder of childhood] Chronic Esophageal disorders (20 sources) Gastroesophageal reflux disease; Translations: [Gastro-esophageal reflux disease without esophagitis] Chronic Fluid and electrolyte disorders (2 sources) Dehydration; Translations: [Dehydration] 07-02-2018 Episodic Fracture of lower limb (1 source) Other fracture of unspecified lower leg, initial encounter for closed fracture Episodic Headache; including migraine (2 sources) Headache; Translations: [Headache] 07-02-2018 Episodic Hemorrhage during ; abruptio placenta; placenta previa (2 sources) Threatened miscarriage; Translations: [Threatened ] 04-18-2021 Episodic Inflammatory diseases of female pelvic organs (2 sources) Inflammation of cervix; Translations: [Inflammatory disease of cervix uteri] 02-12-2018 Episodic Malaise and fatigue (2 sources) Other fatigue Episodic Mood disorders (20 sources) Recurrent major depressive episodes; Translations: [Major depressive disorder, recurrent, unspecified] Chronic Nausea and vomiting (1 source) Nausea Episodic Nonspecific chest pain (3 sources) Atypical chest pain; Translations: [Other chest [...] talus] Onset: 2022 Chronic Other complications of (2 sources) Nausea and vomiting; Translations: [Vomiting of , unspecified] 05-30-2021 Episodic Other endocrine disorders (20 sources) Hypoglycemia; Translations: [Hypoglycemia, unspecified] Chronic Other non-traumatic joint disorders (2 sources) Acute ankle pain; Translations: [Pain in 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] 07-07-2022 Episodic Other nutritional; endocrine; and metabolic disorders (20 sources) Body mass index 40+ - severely obese; Translations: [Body mass index (BMI) 40.0-44.9, adult] Onset: 08-14-2022 Chronic Other nutritional; endocrine; and metabolic disorders (1 source) Body mass index (BMI) 40.0-44.9, adult; Translations: [BMI 40.0-44.9, adult (HCC)] Onset: 08-14-2022 Chronic Other nutritional; endocrine; and [...] Sciatica; Translations: [Sciatica, unspecified side] Episodic Syncope (2 sources) Near syncope; Translations: [Syncope and collapse] 11-29-2017 Episodic Unclassified (3 sources) LOW BACK PAIN, UNSPECIFIED; Translations: [LOW BACK PAIN, UNSPECIFIED] Onset: 08-03-2022 Unclassified (3 sources) CONTACT W/AND (SUSP) EXPOS COVID-19; Translations: [CONTACT W/AND (SUSP) EXPOS COVID-19] Onset: 06-29-2022 Unclassified (1 source) Acute bilateral low back pain without sciatica; Translations: [Acute bilateral low back pain without sciatica] Onset: 08-14-2022 Viral infection (2 sources) Viral disease; Translations: [Viral infection, unspecified] 08-31-2021 Episodic Past or Other Problems Problem Classification Problem Date Documented Da te Episodic/Chronic Conditions associated with dizziness or vertigo (20 [...] Test Name Value Interpretation Reference Range Facility Basophils Auto (Bld) [#/Vol] on 04-13-2024 Basophils (Bld) [#/Vol] 0.0 10 3/uL 0.0-0.1 [facility] Basophils/100 WBC Auto (Bld) on 04-13-2024 Basophils/100 WBC (Bld) 0.2 % 0.2-2.0 [facility] Buprenorphine [Presence] in Urineon 04-13-2024 Buprenorphine Ql (U) Negative NEGATIVE [facility] Comment on above: DRUG CLASS TEST SYST EM CUT-OFF CONCENTRATIONS ARE ASFOLLOWS:AMP (Amphetamine): 500 ng/mLBAR (Barbiturates): 200 ng/mLBZO (Benzodiazepines): 150 ng/mLBUP (Buprenorphine): 10 ng/mLCOC (Cocaine): 150 ng/mLmAMP (Methamphetamine): 500 ng/mLMTD (Methadone): 200 ng/mLOPI (Opiates): 100 ng/mLOXY (Oxycodone): 100 ng/mLPCP (Phencyclidine): 25 ng/mLTHC (Cannabinoids): 50 ng/mLTCA (Trycyclic Antidepressants): 300 ng/mL Eosinophils/100 WBC Auto (Bl d)on 04-13-2024 Eosinophils/100 WBC (Bld) 1.2 % 0.9-7.0 [facility] Erythrocyte distribution wid th Auto (RBC) [Ratio]on 04-13-2024 Erythrocyte distribution width (RBC) [Ratio] 14.7 % 11.0-15.0 [facility] Hematocrit Auto (Bld) [Volum e fraction]on 04-13-2024 Hematocrit (Bld) [Volume fraction] 31.2 % 36.0-48.0 [facility] Hemoglobin [Mass/volume] in Bloodon 04-13-2024 Hemoglobin (Bld) [Mass/Vol] 10.1 g/dL 12.0-16.0 [facility] Sung 04-13-2024 L Specimen: [id number] Received: 04/13/24 Status: SY Warren Num: [id number] Spec Type: Surgical Subm : Ryan Rodriguez Tissues: A Fallopian Tube - Sterilization (BILATERAL FALLOPIAN TUBES) B Placenta - 3rd Trimester (Greater than 28 weeks) (PLACENTA) Procedures: HE/6, Gross/Micro L5, Gross/Micro L2 Age/ Patient Sex Location Account Attending Physician Edith Wells 28/F LABELL [id number] Ryan Rodriguez SPEC NUM: [id number] RECD: 04/13/24 STATUS: SY WARREN NUM: [id number] CIELO: 04/13/24- SUBM DR: Ryan Rodriguez ENTERED: 04/13/24-1333 [facility] DR: Anna,Daniel SPEC TYPE: Surgical DEPT: MERLINE GORMAN ORDERED: HE/6, Gross/Micro L5, Gross/Micro L2 ORDERED: HE/6, Gross/Micro L5, Gross/Micro L2 Pathological Diagnosis A, bilateral fallopian tubes, bilateral salpingectomy: -Bilateral intact fimbriated fallopian tubes without significant histopathological findings, except for small paratubal cyst on tube #2 B, placental removal, repeat section: -Mature third trimester placenta with three-vessel cord, appropriate for gestational age (662 g) -No evidence of acute chorioamnionitis, umbilical funisitis, or villitis -Incidental velamentous cord insertion and unremarkable surrounding membranes without secondary complication -Incidental focal mild microcalcifications at the basal plate -No other significant histopathological changes except occasional mild nonspecific chronic inflammation in the decidual layer of basal plate Clinical Information , P:3, GA 37w 4d, risk: Thin placenta, previous . : 6/8, reason: Bloody amniotic fluid Repeat section, salpingectomy. ---- Specimen: [id number] Received: 04/13/24 Status: SY Warren Num: [id number] Spec Type: Surgical Subm Dr: Ryan Rodriguez Tissues: A Fallopian Tube - Sterilization (BILATERAL FALLOPIAN TUBES) B Placenta - 3rd Trimester (Greater than 28 weeks) (PLACENTA) Procedures: HE/6, Gross/Micro L5, Gross/Micro L2 ---- Patient: Edith Wells [id number] (Continued) ---- Specimen: [id number] Received: 04/13/24 (Continued) Signed (signature on file) Lashae Phipps MD 04/19/24 1544 ---- Specimen: [id number] Received: 04/13/24 Status: SY Warren Num: [id number] Spec Type: Surgical Subm Dr: Ryan Rodriguez Tissues: A Fallopian Tube - Sterilization (BILATERAL FALLOPIAN TUBES) B Placenta - 3rd Trimester (Greater than 28 weeks) (PLACENTA) Procedures: HE/6, Gross/Micro L5, Gross/Micro L2 ---- Patient: Edith Wells [id number] (Continued) ---- Specimen: [id number] Received: 04/13/24-1333 (Continued) Gross Description A. Received in formalin labeled with the patient's name, date of and bilateral fallopian tubes are 2 undesignated fimbriated fallopian tubes assigned as #1 and #2. Each tube is covered by calhoun-purple serosa. Tube #1 measures 8.8 cm in length by 0.4-1.1 cm in diameter and tube #2 measures 10.6 cm in length by 1.2 cm in diameter and contains a 0.7 cm intact paratubal cyst. Cut sections for each tube demonstrate an intact luminal center lined by unremarkable calhoun mucosa. Foreign Language Stenographer sections of each tube are submitted in A1 (tube #1) and A2 (tube #2). B. Received in formalin labeled with the patient's name, date of and placenta is a cartagena placental disc with attached membranes, and attached umbilical cord. The 29.4 x 1.2 cm, three-vessel, calhoun umbilical cord inserts velamentously into the membranes the cord has normal spiraling no knots or lesions present. The marginally inserted, complete membranes are calhoun-pink, thin and translucent with the poi nt of rupture 10.4 cm from the disc margin. Intramembranous blood vessels are present at the site of the cord insertion and intact for 5.5 cm in the membranes. The chorionic plate is ashley-blue with patent vessels that span out magistrally over the surface. The maternal surface has intact, lobulated cotyledons. No loose adherent blood clot is attached to the placental disc. The parenchyma is pink-red and spongiform. The 21.3 x 15.1 x 2.1 cm placental disc, devoid of membranes and cord, has a trimmed weight of 662 grams. Summary of sections: B1: umbilical cord at end and membrane roll including possible site of rupture B2: umbilical cord at placental end and parenchyma adjacent (more content not included)... Normal [facility] Laboratory - Chemistry and C hemistry - challengeon 04-13-2024 Bilirubin Ql (U) Negative NEGATIVE [facility] Glucose (U) [Mass/Vol] Negative NEGATIVE [facility] Ketones Ql (U) TRACE mg/dL NEGATIVE [facility] pH (U) 7.0 [pH] 5.0-9.0 [facility] Specific gravity (U) [Rel density] 1.025 1.005-1.025 [facility] Urobilinogen Qn (U) 0.2 {Vasquez'U}/dL 0.2-1.0 [facility] Laboratory - Drug toxicology on 04-13-2024 Amphetamines Ql (U) Negative NEGATIVE [facility] Benzodiazepines Ql (U) Negative NEGATIVE [facility] Cocaine Ql (U) Negative NEGATIVE [facility] Opiates Ql (U) Negative NEGATIVE [facility] Phencyclidine Ql (U) Negative NEGATIVE [facility] Laboratory - Hematology and Cell countson 04-13-2024 Immature granulocytes/100 WBC (Bld) 1.1 % 0.0-0.5 [facility] Laboratory - Specimen inform ationon 04-13-2024 Appearance (U) CLEAR CLEAR [facility] Color (U) YELLOW YELLOW [facility] Laboratory - Urinalysison Amorphous sediment LM Ql (Urine sed) FEW [facility] Leukocyte esterase Test strip Ql (U) Negative NEGATIVE [facility] Mucus Ql (Urine sed) NONE SEEN NONE SEEN [facility] Nitrite Ql (U) Negative NEGATIVE [facility] Protein Ql (U) Negative NEG/TRACE [facility] Leukocytes [#/volume] correc zee for nucleated erythrocytes in Blood by Automated counon 04-13-2024 WBC corrected for nucl RBC Auto (Bld) [#/Vol] 12.9 10 3/uL 4.0-11.0 [facility] Lymphocytes Auto (Bld) [#/Vo l]on 04-13-2024 Lymphocytes (Bld) [#/Vol] 3.6 10 3/uL 1.2-3.8 [facility] Lymphocytes/100 WBC Auto (Bl d)on 04-13-2024 Lymphocytes/100 WBC (Bld) 27.5 % 20.5-60.0 [facility] MCH Auto (RBC) [Entitic mass ]on 04-13-2024 MCH (RBC) [Entitic mass] 29.5 pg 26.7-34.0 [facility] MCHC Auto (RBC) [Mass/Vol]on 04-13-2024 MCHC (RBC) [Mass/Vol] 32.4 g/dL 29.9-35.2 [facility] MCV Auto (RBC) [Entitic vol] on 04-13-2024 MCV (RBC) [Entitic vol] 91.2 fL 81.0-99.0 [facility] Methadone [Presence] in Urin e by Screen methodon 04-13-2024 Methadone Screen Ql (U) Negative NEGATIVE [facility] Monocytes Auto (Bld) [#/Vol] on 04-13-2024 Monocytes (Bld) [#/Vol] 0.7 10 3/uL 0.3-0.8 [facility] Monocytes/100 WBC Auto (Bld) on 04-13-2024 Monocytes/100 WBC (Bld) 5.7 % 1.7-12.0 [facility] Neutrophils Auto (Bld) [#/Vo l]on 04-13-2024 Neutrophils (Bld) [#/Vol] 8.3 10 3/uL 1.4-6.5 [facility] Neutrophils/100 WBC Auto (Bl d)on 04-13-2024 Neutrophils/100 WBC (Bld) 64.3 % 43.0-75.0 [facility] No Panel Informationon 04-13 Eosinophils # (Auto) 0.2 10 3/uL 0.0-0.7 [facility] Immature Granulocyte # (Auto) 0.14 10 3/uL 0.00-0.03 [facility] Urine Bacteria MODERATE #/HPF NONE SEEN [facility] Urine Barbiturates Screen Negative NEGATIVE [facility] Urine Culture Reflexed YES [facility] Urine Marijuana (THC) Screen Negative NEGATIVE [facility] Urine Methamphetamines Screen Negative NEGATIVE [facility] Urine Occult Blood Negative NEGATIVE [facility] Urine Other Casts NONE SEEN #/LPF NONE SEEN [facility] Urine Other Crystals Seen #/HPF None Seen [facility] Urine RBC 0-2 #/HPF 0-2 [facility] Urine Squamous Epithelial Cells FEW #/LPF NONE/RARE [facility] Urine WBC 0-2 #/HPF NONE SEEN [facility] Platelet mean volume Auto (B ld) [Entitic vol]on 04-13-2024 Platelet mean volume (Bld) [Entitic vol] 10.8 fL 9.5-13.5 [facility] Platelets Auto (Bld) [#/Vol] on 04-13-2024 Platelets (Bld) [#/Vol] 357 10 3/uL 150-450 [facility] RBC Auto (Bld) [#/Vol]on RBC (Bld) [#/Vol] 3.42 10 6/uL 4.20-5.40 [facility] Urine tricyclic antidepressa nt measurementon 04-13-2024 Tricyclic antidepressants (U) [Mass/Vol] Negative NEGATIVE [facility] oxyCODONE+oxyMORphone [Prese nce] in Urine by Screen methodon 04-13-2024 oxyCODONE+oxyMORphone Screen Ql (U) Negative NEGATIVE [facility] No Panel InformationOrdered By: Ryan Rodriguez on 03-31-2024 Group B Streptococcus Culture [facility] Glucose mean value [Mass/vol ume] in Blood Estimated from glycated hemoglobinon 03-16-2024 Average glucose Estimated from glycated hemoglobin (Bld) [Mass/Vol] 114 mg/dL [facility] Laboratory - Hematology and Cell countson 03-16-2024 HbA1c (Bld) [Mass fraction] 5.6 % 4.5-6.2 [facility] Comment on above: ADA RECOMMENDED LIMI T 4.0 - 6.0ADA THERAPEUTIC TARGET < 7.0ACTION SUGGESTED> 7.0 No Panel Informationon 03-16 Hepatitis C Interpretation Comment . [facility] Comment on above: Not infected with HC V unless early or acute infection issuspected (which may be delayed in an immunocompromisedindividual), or other evidence exists to indicate HCVinfection.Performed at: [facility] [id number] Director: Frankie Aguero PhD, Phone: [phone] Serum or plasma hepatitis C virus antibody signal/cutoff ratio by immunoassay (relation 03-16-2024 HCV Ab Signal/Cutoff IA [Rel units/Vol] Non-Reactive Non Reactive [facility] Basophils Auto (Bld) [#/Vol] on 03-11-2024 Basophils (Bld) [#/Vol] 0.0 10 3/uL 0.0-0.1 [facility] Basophils/100 WBC Auto (Bld) on 03-11-2024 Basophils/100 WBC (Bld) 0.1 % 0.2-2.0 [facility] Eosinophils/100 WBC Auto (Bl d)on 03-11-2024 Eosinophils/100 WBC (Bld) 0.6 % 0.9-7.0 [facility] Erythrocyte distribution wid th Auto (RBC) [Ratio]on 03-11-2024 Erythrocyte distribution width (RBC) [Ratio] 14.1 % 11.0-15.0 [facility] Hematocrit Auto (Bld) [Volum e fraction]on 03-11-2024 Hematocrit (Bld) [Volume fraction] 30.2 % 36.0-48.0 [facility] Hemoglobin [Mass/volume] in Bloodon 03-11-2024 Hemoglobin (Bld) [Mass/Vol] 9.9 g/dL 12.0-16.0 [facility] Laboratory - Chemistry and C hemistry - challengeon 03-11-2024 Chloride [Moles/Vol] 103 mmol/L 98-107 [facility] CO2 [Moles/Vol] 25.7 mmol/L 21.0-32.0 [facility] Potassium [Moles/Vol] 4.0 mmol/L 3.5-5.1 [facility] Sodium [Moles/Vol] 135 mmol/L 136-145 [facility] Bilirubin Ql (U) Negative NEGATIVE [facility] Glucose (U) [Mass/Vol] Negative [facility] Ketones Ql (U) TRACE mg/dL NEGATIVE [facility] pH (U) 7.5 [pH] 5.0-9.0 [facility] Specific gravity (U) [Rel density] 1.020 1.005-1.025 [facility] Urobilinogen Qn (U) 0.2 {Vasqeuz'U}/dL 0.2-1.0 [facility] Laboratory - Hematology and Cell countson 03-11-2024 Immature granulocytes/100 WBC (Bld) 0.7 % 0.0-0.5 [facility] Laboratory - Specimen inform ationon 03-11-2024 Appearance (U) CLEAR CLEAR [facility] Color (U) YELLOW YELLOW [facility] Laboratory - Urinalysison Leukocyte esterase Test strip Ql (U) Negative NEGATIVE [facility] Nitrite Ql (U) Negative NEGATIVE [facility] Protein Ql (U) TRACE mg/dL NEG/TRACE [facility] Leukocytes [#/volume] correc zee for nucleated erythrocytes in Blood by Automated counon 03-11-2024 WBC corrected for nucl RBC Auto (Bld) [#/Vol] 9.9 10 3/uL 4.0-11.0 [facility] Lymphocytes Auto (Bld) [#/Vo l]on 03-11-2024 Lymphocytes (Bld) [#/Vol] 2.9 10 3/uL 1.2-3.8 [facility] Lymphocytes/100 WBC Auto (Bl d)on 03-11-2024 Lymphocytes/100 WBC (Bld) 29.1 % 20.5-60.0 [facility] MCH Auto (RBC) [Entitic mass ]on 03-11-2024 MCH (RBC) [Entitic mass] 30.6 pg 26.7-34.0 [facility] MCHC Auto (RBC) [Mass/Vol]on 03-11-2024 MCHC (RBC) [Mass/Vol] 32.8 g/dL 29.9-35.2 [facility] MCV Auto (RBC) [Entitic vol] on 03-11-2024 MCV (RBC) [Entitic vol] 93.2 fL 81.0-99.0 [facility] Monocytes Auto (Bld) [#/Vol] on 03-11-2024 Monocytes (Bld) [#/Vol] 0.6 10 3/uL 0.3-0.8 [facility] Monocytes/100 WBC Auto (Bld) on 03-11-2024 Monocytes/100 WBC (Bld) 6.3 % 1.7-12.0 [facility] Neutrophils Auto (Bld) [#/Vo l]on 03-11-2024 Neutrophils (Bld) [#/Vol] 6.2 10 3/uL 1.4-6.5 [facility] Neutrophils/100 WBC Auto (Bl d)on 03-11-2024 Neutrophils/100 WBC (Bld) 63.2 % 43.0-75.0 [facility] No Panel Informationon 03-11 Eosinophils # (Auto) 0.1 10 3/uL 0.0-0.7 [facility] Immature Granulocyte # (Auto) 0.07 10 3/uL 0.00-0.03 [facility] Urine Microscopic Review NO [facility] Urine Occult Blood Negative NEGATIVE [facility] Platelet mean volume Auto (B ld) [Entitic vol]on 03-11-2024 Platelet mean volume (Bld) [Entitic vol] 9.9 fL 9.5-13.5 [facility] Platelets Auto (Bld) [#/Vol] on 03-11-2024 Platelets (Bld) [#/Vol] 345 10 3/uL 150-450 [facility] RBC Auto (Bld) [#/Vol]on RBC (Bld) [#/Vol] 3.24 10 6/uL 4.20-5.40 [facility] Serum or plasma anion gap de terminationon 03-11-2024 Anion gap [Moles/Vol] 10.3 mmol/L [facility] CNPNon 05-27-2023 CNPN Telephone (4CQ) EDITH WELLS ([id number]) 1995 F Date Time Provider Department 05/27/23 TESSA SANCHEZ 4CQ During your visit today, we recorded the following information about you: Glenis Gavin 05/27/2023 12:11 PM Signed Edith Wells is calling Tessa Sanchez MD today. Patient's therapist at [facility] is asking if she can continue PT but change it to 2 days on land and 0 days in water per week. Needs new order sent to [facility] in [place]. She did not have the fax number. [...] time off per provider's discretion. Patient will sampler pickup the note when ready. Call her to inform when she can pick it up. Call cell number below. May leave a message. No chief complaint on file. Patient has been identified by name and birthdate. Duration of symptoms: Person calling: self Call patient at: on cell and , it is OK to leave message [phone] (home) [phone] (cell) Was an appointment scheduled: No Closing statement: Results or non-symptom based questions: Thank you for calling [facility], your call will be returned within the next business day. Glenis MorrisonLizzette Little RN 05/27/2023 1:33 PM Signed I spoke with Edith and we talked at length. She will try speaking to her PCP about a work release as Dr. Sanchez, her surgeon, has retired. Lizzette Adams RN Allergies As of Date: 05/27/2023 (No Known Allergies) Date Reviewed: 04/17/2023 Reviewed by: Pari Franco MA - Fully Assessed Reason for Visit: Question [4073] Prescriptions as of 05/27/2023 - etodolac (LODINE-XL) [...] by LIZZETTE ADAMS RN on 05/27/23 Normal [facility] CNCOon 04-17-2023 CNCO Letter Text Normal [facility] CNOVon 04-17-2023 CNOV Office Visit (ORAVON ) EDITH WELLS ([id number]) 1995 F Date Time Provider Department 04/17/23 [...] records. This note was partially generated using [employer] voice recognition system, and there may be some incorrect words, spellings, and punctuation that were not noted in checking the note before saving. Tessa Sanchez M.D. 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 CNOVon 03-13-2023 CNOV Office Visit (ORAVON ) EDITH WELLS ([id number]) 1995 F Date Time Provider Department 03/13/23 [...] and is of normal mood and affect. [facility] 07/02/2022 Gait Cycle: Normal Yes, Limp: [...] records. This note was partially generated using [employer] voice recognition system, and there may be some incorrect words, spellings, and punctuation that were not noted in checking the note before saving. Tessa Sanchez M.D. 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 Has been approved by [facility] and she can now schedule. Asking for recent therapy order from Dr Sanchez be faxed to [facility] in [place] at [phone]. Lizzette Adams RN 03/01/2023 10:22 AM Signed Faxed today at 10:20am. Lizzette Adams RN Allergies As of Date: 02/28/2023 (No Known Allergies) Date Reviewed: 01/02/2023 Reviewed by: Theresa Frederick MA - Fully Assessed Reason for Visit: Electronic Communication [320] Cmt: PT order faxed today Prescriptions as [...] Status:Closed by LIZZETTE ADAMS RN on 03/01/23 [facility] 01-10-2023 YAN Telephone (ADRIANA) EDITH WELLS ([id number]) 1995 F Date Time Provider Department 01/10/23 [...] back to the office to update CALL [phone] Autumn Villarwayne 01/10/2023 12:07 PM Signed Edith Wells is [...] calling: self Call patient at: at home [phone] (home) [phone] (cell) Was an appointment scheduled: No Closing statement: Results or non-symptom based questions: Thank you for calling [facility], your call will be returned within the next business day. Lizzette Adams RN 01/11/2023 12:04 PM Signed Patient's note faxed today as requested Lizzette Noguera 02/08/2023 4:15 PM Signed Patient calling in about papers she received in the mail. She does not know what they are or what she needs to do with them. Please call her at [phone]. Lizzette Adams RN 02/11/2023 10:34 AM Signed [...] Reason for Visit: Return To Work Letter [6089] Prescriptions as of 02/11/2023 - etodolac (LODINE-XL) [...] Status:Closed by LIZZETTE ADAMS RN on 01/11/23 [facility] CNOVon 01-02-2023 CNOV Office Visit (ORAVON ) EDITH WELLS ([id number]) 1995 F Date Time Provider Department 01/02/23 [...] records. This note was partially generated using [employer] voice recognition system, and there may be [...] Past Histories independently gathered by the clinical youth support worker and the remaining scribed note accurately describes my personal service to the patient. Tessa Sanchez M.D. 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 - cyclobenzaprine (FLEXERIL) 5 (more content not included)... Normal [facility] XR ANKLE 3V AP/LAT/OBL RTon 01-02-2023 [...] malalignment is identified. Joint spaces are maintained. Sound Effects Technician: [employer] Transcribe Date/Time: Jan 02 2023 4:17P Dictated by : RC CIFUENTES MD This examination was interpreted and the report reviewed and electronically signed by: RC CIFUENTES MD on Jan 02 2023 4:18PM EST [id number] Normal [facility] XR ANKLE GENERAL 3V AP/LAT/O BL RIGHTon 01-02-2023 [facility] CNCOon 12-21-2022 CNCO Letter Text Normal [facility] CNPNon 12-21-2022 CNPN Telephone (ORAVON) EDITH WELLS ([id number]) 1995 F Date Time Provider Department 12/21/22 [...] Encounter Status:Closed by VINAY CORONA on 12/21/22 [facility] Shayy 12-19-2022 YAN Telephone (ORAVON) EDITH WELLS ([id number]) 1995 F Date Time Provider Department 12/19/22 [...] cannot complete patient specific tasks. Ana Luisa Hernandez, RN 12/21/2022 3:07 PM Signed Patient calling back. Has RTW date of 12/24/22. Asking if letter could be formatted to extend the date until the appointment on 01/02/23? Continues to have pain. Wearing the boot again, unable to wear the brace d/t pain. See below message, for illness details during Nov, that prevented her form having PT. CALL [phone] Vinay Corona RN 12/21/2022 5:35 PM Signed This RN called and spoke with patient. Letter sent via [employer] ([employer]) she report she received it. 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 She was grateful for the call. Vinay Corona PLANT MAINTENA[employer]CE [employer]IC Allergies As of Date: 12/19/2022 (No Known [...] Encounter Status:Closed by VINAY CORONA on 12/21/22 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 Judah Phipps LU-POSADAS VIRUS (EBV) AB PROFILEon 11-14-2022 EBV Ab VCA, IgG 370.0 U/mL Critically high 0.0-17.9 [facility] Comment on above: Result Comment: Nega tive <18.0 Equivocal 18.0 - 21.9 Positive >21.9 Performed By: #### E BVPROF #### [facility] [address] [place] [address] Dr. Judah Phipps EBV Ab VCA, IgM <36.0 Normal 0.0-35.9 [facility] Comment on above: Result Comment: Nega tive <36.0 Equivocal 36.0 - 43.9 Positive >43.9 Performed By: #### E BVPROF #### [facility] [address] [place] [address] Dr. Judah Phipps EBV Nuclear Antigen Ab, IgG 224.0 U/mL Critically high 0.0-17.9 [facility] Comment on above: Result Comment: Nega tive <18.0 Equivocal 18.0 - 21.9 Positive >21.9 Performed By: #### E BVPROF #### [facility] [address] [place], [place] [address] Dr. Judah Phipps Interpretation: Comment Normal [facility] Comment on above: Result Comment: EBV [...] EBNA. Performed By: #### E BVPROF #### [facility] [address] [id number] [address] Judah Phipps XR ANKLE 3V AP/LAT/OBL [...] dislocation. IMPRESSION: Expected postoperative findings as described. Sound Effects Technician: [employer] Transcribe Date/Time: Nov 14 2022 6:35P Dictated by : TINA VEGA MD This examination was interpreted and the report reviewed and electronically signed by: TINA VEGA MD on Nov 15 2022 6:27AM EST [id number] Normal [facility] XR ANKLE GENERAL 3V AP/LAT/O BL RIGHTon 11-14-2022 [facility] AMYLASEon 11-13-2022 Amylase [Catalytic activity/Vol] 42 U/L Normal 25-115 [facility] Comment on above: Performed By: #### L IPA, CMP, SYEDA, PREGQNT #### [facility] [address] [place] [address] Dr. Judah Phipps CBC AUTO DIFFon 11-13-2022 BASO # 0.0 103/ul Normal 0.0-0.1 [facility] Comment on above: Performed By: #### L IPA, CMP, SYEDA, PREGQNT #### [facility] [address] [place] [address] Dr. Judah Phipps Basophils/100 WBC (Bld) 0.3 % Normal 0.2-2.0 [facility] Comment on above: Performed By: #### L IPA, CMP, SYEDA, PREGQNT #### [facility] [address] [place] [address] Dr. Judah Phipps EO # 0.5 103/ul Normal 0.0-0.7 [facility] Comment on above: Performed By: #### L IPA, CMP, SYEDA, PREGQNT #### [facility] [address] [place] [address] Dr. Judah Phipps Eosinophils/100 WBC (Bld) 4.0 % Normal 0.9-7.0 [facility] Comment on above: Performed By: #### L IPA, CMP, SYEDA, PREGQNT #### [facility] [address] [place] [address] Dr. Judah Phipps Erythrocyte distribution width (RBC) [Ratio] 13.2 % Normal 11.0-15.0 [facility] Comment on above: Performed By: #### L IPA, CMP, SYEDA, PREGQNT #### [facility] [address] [place] [address] Dr. Judah Phipps Hematocrit (Bld) [Volume fraction] 37.2 % Normal 36.0-48.0 [facility] Comment on above: Performed By: #### L IPA, CMP, SYEDA, PREGQNT #### [facility] [address] [place] [address] Dr. Judah Phipps Hemoglobin (Bld) [Mass/Vol] 12.5 g/dL Normal 12.0-16.0 [facility] Comment on above: Performed By: #### L IPA, CMP, SYEDA, PREGQNT #### [facility] [address] [place] [address] Dr. Judah Phipps IG # 0.04 10e3/ul Critically high 0.00-0.03 [facility] Comment on above: Performed By: #### L IPA, CMP, SYEDA, PREGQNT #### [facility] [address] [place] [address] Dr. Judah Phipps IG % 0.3 % Normal 0.0-0.5 [facility] Comment on above: Performed By: #### L IPA, CMP, SYEDA, PREGQNT #### [facility] [address] [place] [address] Dr. Judah Phipps LYMPH # 4.8 103/ul Critically high 1.2-3.8 [facility] Comment on above: Performed By: #### L IPA, CMP, SYEDA, PREGQNT #### [facility] [address] [place] [address] Dr. Judah Phipps Lymphocytes/100 WBC (Bld) 39.9 % Normal 20.5-60.0 [facility] Comment on above: Performed By: #### L IPA, CMP, SYEDA, PREGQNT #### [facility] [address] [place] [address] Dr. Judah Phipps MANUAL DIFF REQ NO Normal [facility] Comment on above: Performed By: #### L IPA, CMP, SYEDA, PREGQNT #### [facility] [address] [place] [address] Dr. Judah Phipps MCH (RBC) [Entitic mass] 30.5 pg Normal 26.7-34.0 [facility] Comment on above: Performed By: #### L IPA, CMP, SYEDA, PREGQNT #### [facility] [address] [place] [address] Dr. Judah Phipps MCHC (RBC) [Mass/Vol] 33.6 g/dL Normal 29.9-35.2 [facility] Comment on above: Performed By: #### L IPA, CMP, SYEDA, PREGQNT #### [facility] [address] [place] [address] Dr. Judah Phipps MCV (RBC) [Entitic vol] 90.7 fL Normal 81.0-99.0 [facility] Comment on above: Performed By: #### L IPA, CMP, SYEDA, PREGQNT #### [facility] [address] [place] [address] Dr. Judah Phipps MONO # 0.7 103/ul Normal 0.3-0.8 [facility] Comment on above: Performed By: #### L IPA, CMP, SYEDA, PREGQNT #### [facility] [address] [place] [address] Dr. Judah Phipps Monocytes/100 WBC (Bld) 6.1 % Normal 1.7-12.0 [facility] Comment on above: Performed By: #### L IPA, CMP, SYEDA, PREGQNT #### [facility] [address] [place] [address] Dr. Judah Phipps NEUT # 5.9 103/ul Normal 1.4-6.5 [facility] Comment on above: Performed By: #### L IPA, CMP, SYEDA, PREGQNT #### [facility] [address] [place] [address] Dr. Judah Phipps Neutrophils/100 WBC (Bld) 49.4 % Normal 43.0-75.0 [facility] Comment on above: Performed By: #### L IPA, CMP, SYEDA, PREGQNT #### [facility] [address] [place] [address] Dr. Judah Phipps Platelet mean volume (Bld) [Entitic vol] 9.2 fL Critically low 9.5-13.5 [facility] Comment on above: Performed By: #### L IPA, CMP, SYEDA, PREGQNT #### [facility] [address] [place] [address] Dr. Judah Phipps PLT 408 103/ul Normal 150-450 [facility] Comment on above: Performed By: #### L IPA, CMP, SYEDA, PREGQNT #### [facility] [address] [address] [address] Judah Phipps RBC 4.10 106/ul Critically low 4.20-5.40 [facility] Comment on above: Performed By: #### L IPA, CMP, SYEDA, PREGQNT #### [facility] [address] [address] [address] Judah Phipps WBC 12.0 103/ul Critically high 4.0-11.0 [facility] Comment on above: Performed By: #### L IPA, CMP, SYEDA, PREGQNT #### [facility] [address] [place] [address] Dr. Judah Phipps LIPASEon 11-13-2022 Lipase [Catalytic activity/Vol] 161.0 U/L Normal 73.0-393.0 [facility] Comment on above: Performed By: #### L IPA, CMP, SYEDA, PREGQNT #### [facility] [address] [place] [address] Dr. Judah Phipps PREG QUANT HCGon 11-13-2022 HCG QUANT <1 Normal [facility] Comment on above: Performed By: #### L IPA, CMP, SYEDA, PREGQNT #### [facility] [address] [place] [address] Dr. Judah Phipps HCG RANGE SEE BELOW Normal [facility] Comment on above: Result Comment: 5-50 0.2-1 WEEK 50-500 1-2 WEEKS 100-5,000 2-3 WEEKS 500-10,000 3-4 WEEKS 1,000-50,000 4-5 WEEKS 10,000-100,000 5-6 WEEKS 15,000-200,000 6-8 WEEKS 10,000-100,000 2-3 MONTHS Performed By: #### L IPA, CMP, SYEDA, PREGQNT #### [facility] [address] [place] [address] Dr. Judah Phipps PROF 14(COMP METB)on 023 Albumin [Mass/Vol] 3.6 g/dL Normal 3.4-5.0 [facility] Comment on above: Performed By: #### L IPA, CMP, SYEDA, PREGQNT #### [facility] [address] [place] [address] Dr. Judah Phipps Albumin/Globulin [Mass ratio] 1.1 {ratio} Normal [facility] Comment on above: Performed By: #### L IPA, CMP, SYEDA, PREGQNT #### [facility] [address] [place] [address] Dr. Judah Phipps ALP [Catalytic activity/Vol] 64 U/L Normal 46-116 [facility] Comment on above: Performed By: #### L IPA, CMP, SYEDA, PREGQNT #### [facility] [address] [place] [address] Dr. Judah Phipps ALT [Catalytic activity/Vol] 9 U/L Critically low 14-59 [facility] Comment on above: Performed By: #### L IPA, CMP, SYEDA, PREGQNT #### [facility] [address] [place] [address] Dr. Judah Phipps Anion gap [Moles/Vol] 11.3 mmol/L Normal [facility] Comment on above: Performed By: #### L IPA, CMP, SYEDA, PREGQNT #### [facility] [address] [place] [address] Dr. Judah Phipps AST [Catalytic activity/Vol] 10 U/L Critically low 15-37 [facility] Comment on above: Performed By: #### L IPA, CMP, SYEDA, PREGQNT #### [facility] [address] [place] [address] Dr. Judah Phipps Bilirubin [Mass/Vol] 0.2 mg/dL Normal 0.2-1.0 [facility] Comment on above: Performed By: #### L IPA, CMP, SYEDA, PREGQNT #### [facility] [address] [place] [address] Dr. Judah Phipps Calcium [Mass/Vol] 8.9 mg/dL Normal 8.5-10.1 [facility] Comment on above: Performed By: #### L IPA, CMP, SYEDA, PREGQNT #### [facility] [address] [address] [address] Judah Phipps Chloride [Moles/Vol] 102 mmol/L Normal 98-107 [facility] Comment on above: Performed By: #### L IPA, CMP, SYEDA, PREGQNT #### [facility] [address] [place] [address] Dr. Judah Phipps CO2 [Moles/Vol] 28.5 mmol/L Normal 21.0-32.0 [facility] Comment on above: Performed By: #### L IPA, CMP, SYEDA, PREGQNT #### [facility] [address] [place] [address] Dr. Judah Phipps Creatinine [Mass/Vol] 0.65 mg/dL Normal 0.55-1.02 [facility] Comment on above: Performed By: #### L IPA, CMP, SYEDA, PREGQNT #### [facility] [address] [place] [address] Dr. Judah Phipps EGFR-AF [place]LANDER >60 Normal >=60 [facility] Comment on above: Performed By: #### L IPA, CMP, SYEDA, PREGQNT #### [facility] [address] [place] [address] Dr. Judah Phipps EGFR-NON AF [place] >60 Normal >=60 [facility] Comment on above: Performed By: #### L IPA, CMP, SYEDA, PREGQNT #### [facility] [address] [place] [address] Dr. Judah Phipps Globulin (S) [Mass/Vol] 3.4 g/dL Normal [facility] Comment on above: Performed By: #### L IPA, CMP, SYEDA, PREGQNT #### [facility] [address] [place] [address] Dr. Juadh Phipps Glucose [Mass/Vol] 100 mg/dL Normal 74-106 [facility] Comment on above: Performed By: #### L IPA, CMP, SYEDA, PREGQNT #### [facility] [address] [place] [address] Dr. Judah Phipps Potassium [Moles/Vol] 3.8 mmol/L Normal 3.5-5.1 [facility] Comment on above: Performed By: #### L IPA, CMP, SYEDA, PREGQNT #### [facility] [address] [address] [address] Judah Phipps Protein [Mass/Vol] 7.0 g/dL Normal 6.4-8.2 [facility] Comment on above: Performed By: #### L IPA, CMP, SYEDA, PREGQNT #### [facility] [address] [place] [address] Dr. Judah Phipps Sodium [Moles/Vol] 138 mmol/L Normal 136-145 [facility] Comment on above: Performed By: #### L IPA, CMP, SYEDA, PREGQNT #### [facility] [address] [place] [address] Dr. Judah Phipps Urea nitrogen [Mass/Vol] 15.0 mg/dL Normal 7.0-18.0 [facility] Comment on above: Performed By: #### L IPA, CMP, SYEDA, PREGQNT #### [facility] [address] [place] [address] Dr. Judah Phipps Urea nitrogen/Creatinine [Mass ratio] 23.1 mg/mg Normal [facility] Comment on above: Performed By: #### L IPA, CMP, SYEDA, PREGQNT #### [facility] [address] [place] [address] Dr. Judah Phipps RESPIRATORY PANEL PLUSon Adenovirus Not detected Normal NOT DETECTED [facility] Comment on above: Performed By: #### R SPLUS #### [facility] [address] [place] [address] Dr. Judah Dick. Parapertusis Not detected Normal NOT DETECTED [facility] Comment on above: Performed By: #### R SPLUS #### [facility] [address] [place] [address] Dr. Judah Dick. Pertussis Not detected Normal NOT DETECTED [facility] Comment on above: Performed By: #### R SPLUS #### [facility] [address] [place] [address] Dr. Judah Phipps Chlamydia Pneumoniae Not detected Normal NOT DETECTED [facility] Comment on above: Performed By: #### R SPLUS #### [facility] [address] [place] [address] Dr. Judah Phipps Coronavirus 229E Not detected Normal NOT DETECTED [facility] Comment on above: Performed By: #### R SPLUS #### [facility] [address] [place] [address] Dr. Judah Phipps Coronavirus HKU1 Not detected Normal NOT DETECTED [facility] Comment on above: Performed By: #### R SPLUS #### [facility] [address] [place] [address] Dr. Judah Phipps Coronavirus NL63 Not detected Normal NOT DETECTED [facility] Comment on above: Performed By: #### R SPLUS #### [facility] [address] [place] [address] Dr. Juadh Phipps Coronavirus OC43 Not detected Normal NOT DETECTED [facility] Comment on above: Performed By: #### R SPLUS #### [facility] [address] [place] [address] Dr. Judah Phipps Influenza A H1 2009 Not detected Normal NOT DETECTED [facility] Comment on above: Performed By: #### R SPLUS #### [facility] [address] [place] [address] Dr. Judah Phipps Influenza A H3 Not detected Normal NOT DETECTED [facility] Comment on above: Performed By: #### R SPLUS #### [facility] [address] [place] [address] Dr. Judah Phipps Influenza B Not detected Normal NOT DETECTED [facility] Comment on above: Performed By: #### R SPLUS #### [facility] [address] [place] [address] Dr. Judah Phipps Metapneumovirus Not detected Normal NOT DETECTED [facility] Comment on above: Performed By: #### R SPLUS #### [facility] [address] [place] [address] Dr. Judah Phipps Mycoplas. Pneumoniae Not detected Normal NOT DETECTED [facility] Comment on above: Performed By: #### R SPLUS #### [facility] [address] [place] [address] Dr. Judah Phipps Parainfluenza 1 Not detected Normal NOT DETECTED [facility] Comment on above: Performed By: #### R SPLUS #### [facility] [address] [place] [address] Dr. Judah Phipps Parainfluenza 2 Not detected Normal NOT DETECTED [facility] Comment on above: Performed By: #### R SPLUS #### [facility] [address] [place] [address] Dr. Judah Phipps Parainfluenza 3 Not detected Normal NOT DETECTED [facility] Comment on above: Performed By: #### R SPLUS #### [facility] [address] [place] [address] Dr. Judah Phipps Parainfluenza 4 Not detected Normal NOT DETECTED [facility] Comment on above: Performed By: #### R SPLUS #### [facility] [address] [place] [address] Dr. Judah Phipps Rhino/Enterovirus Not detected Normal NOT DETECTED [facility] Comment on above: Performed By: #### R SPLUS #### [facility] [address] [place] [address] Dr. Judah Phipps RP2 Header 1 RESPIRATORY PANEL: VIRUSES Normal [facility] Comment on above: Performed By: #### R SPLUS #### [facility] [address] [place] [address] Dr. Judah Phipps RP2 Header 2 RESPIRATORY PANEL: BACTERIA Normal [facility] Comment on above: Performed By: #### R SPLUS #### [facility] [address] [place] [address] Dr. Judah Phipps RSV Not detected Normal NOT DETECTED [facility] Comment on above: Performed By: #### R SPLUS #### [facility] [address] [place] [address] Dr. Judah Phipps SARS-CoV-2 (COVID-19) RNA HAROLDO+probe Ql (Unsp spec) Not detected Normal NOT DETECTED [facility] Comment on above: Performed By: #### R SPLUS #### [facility] [address] [place] [address] Dr. Judah Prince 10-10-2022 CNOV Office Visit (ORAVON ) EDITH WELLS ([id number]) 1995 F Date Time Provider Department 10/10/22 [...] She is achy today. 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 She is having pain from her toes up to her knee. Her right ankle surgery was 08/28/22 and questions if pain is normal? Patient is to start therapy today at 6 pm. Patient requesting a return call through #[phone] or #[phone]. The second number is her boyfriends line, Elias. Patient gives okay to leave message with Elias if needed. Please advise. Lizzette Adams RN 09/28/2022 2:23 PM Signed I spoke with Kathie on 09/26/22. Lizzette Adams RN Allergies As of Date: 09/26/2022 (No Known Allergies) Date Reviewed: 09/12/2022 Reviewed by: Lizzette Adams RN - Fully Assessed Reason for Visit: Patient Question [1199] Prescriptions as of 09/28/2022 - predniSONE (DELTASONE) [...] Status:Closed by LIZZETTE ADAMS RN on 09/28/22 [facility] CNOVon 09-12-2022 CNOV Office Visit (ORAVON ) EDITH WELLS ([id number]) 1995 F Date Time Provider Department 09/12/22 3:45 PM TESSA SANCHEZ During your visit today, we recorded the following information about you: Tessa Sanhcez MD 09/12/2022 8:06 PM Signed POD #15 Surgery: right ankle arthroscopy, excision OCD medial talus, microfracture of talus, synovectomy, surgeon monitored fluoroscopy on 08/28/22 She is feeling well today, Dressings: short leg non weight bearing cast removed to check incision and remove sutures and replaced with her own tall aircast-type boot Incision: dry/intact/well-approx imated, no redness Sutures: removed today Drain: NA [...] Check [133] Suture Removal [105] 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 CNOV Office Visit (ORAVON ) EDITH WELLS ([id number]) 1995 F Date Time Provider Department 09/12/22 3:00 PM CAST TECH SUJEY WRIGHT During your visit today, we recorded the following information about you: Alfredconcha Campo Cast 09/12/2022 4:10 PM Signed PT ASSESSMENT - CASTING ROOM Edith presents for cast removal. Applied pneumatic aircast walker(HAD PRIOR TO SURGERY) to Right leg non-weight bearing Patient has been instructed in Care of boot.. 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 Shayy 09-03-2022 [facility] Telephone (ORAVON) EDITH WELLS ([id number]) 1995 F Date Time Provider Department 11/7/22 TESSA SANCHEZ During your visit today, we [...] Status:Closed by AMPARO GUILLORY RN on 09/14/22 [facility] Shayy 09-02-2022 CNPN Telephone (SICU) EDITH WELLS ([id number]) 1995 F Date Time Provider Department 09/02/22 [...] surgery. I stated that if her decree sensation/paresthesias and pain got worse or [...] Fully Assessed Reason for Visit: Patient Question [5423] Prescriptions as of 09/02/2022 - acetaminophen (TYLENOL) [...] Encounter Status:Closed by EYAD SHELBY on 09/02/22 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 CNOVon 08-29-2022 CNOV Office Visit (ORAVON ) EDITH WELLS ([id number]) 1995 F Date Time Provider Department 08/29/22 3:00 PM CAST TECH SUJEY WRIGHT During your visit today, we recorded the following information about you: Alfred Campo Cast 08/29/2022 3:44 PM Signed PT ASSESSMENT - CASTING ROOM Edith presents for Application of cast. Applied short cast: to Right leg non-weight bearing Patient has been instructed in Care of cast.. 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] Prescriptions as [...] Encounter Status:Closed by ALFRED KEARNS on 08/29/22 Normal [facility] ANES POSTPROC EVALon 022 ANES POSTPROC EVAL HNO ID: [id number] Author: Mike Alcantar MD Service: Anesthesiology Author Type: Anesthesiologist Type: Anesthesia Postprocedure Evaluation Filed: 08/28/2022 1:05 PM Note Text: POST ANESTHESIA EVALUATION NOTE : 1995 Procedure Summary Date: 08/28/22 Room / Location: [address] Anesthesia Start: 1029 Anesthesia Stop: 1149 [...] August 28, 2022 TIME: 1:04 PM CSN: [id number] [facility] ANES PRE-OPon 08-28-2022 ANES PRE-OP HNO ID: [id number] Author: Mike Alcantar MD Service: Anesthesiology Author Type: Anesthesiologist Type: Anesthesia Preprocedure Evaluation Filed: 08/28/2022 9:33 AM Note Text: ANESTHESIOLOGY DAY OF SURGERY NOTE : 1995 Procedure Information Date/Time: 08/28/22 1000 Procedure: ARTHROSCOPY ANKLE EXCISION 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) Location: [address] / [facility] Surgeons: Tessa Sanchez MD Estimated body mass [...] none. Vitals Value Taken Time BP 144/77 08/28/22929 Pulse 59 08/28/22930 Resp 16 08/28/22929 Temp 36.4 ?C (97.5 ?F) 08/28/22900 SpO2 97 % 08/28/22930 Vitals shown include [...] August 28, 2022 TIME: 9:32 AM CSN: [id number] [facility] OPERATIVE NOon 08-28-2022 OPERATIVE NO HNO ID: [id number] Author: Tessa Sanchez MD Service: Orthopaedic Surgery Author Type: Physician Type: Operative Report Filed: 08/28/2022 1:09 PM Note Text: OPERATIVE REPORT LOG ID: [id number] Surgery Date: 08/28/2022 Incision/Procedure Start Time: 11:01 AM Incision Close/Procedure End Time: 11:32 AM Procedure Performed: Procedure(s) (LRB): ARTHROSCOPY ANKLE EXCISION OSTEOCHONDRAL DEFECT MEDIAL TALUS Microfracture of talus Synovectomy Surgeon monitored fluoroscopy Surgeon(s)/Procedurali st(s) and Statistical Technician(s): Surgeon(s) and Role: * Tessa Sanchez MD - Primary Physician Statistical Technician: Mercedes Gale PA-C, was essential in patient positioning, application of noninvasive traction, helping to operate fluoroscopy, surgical closure, postoperative bandaging and splinting Anesthesia: General Estimated Blood Loss: 0 ml Drains: None Specimen: Debridement of OCD and synovectomy Complications: None Pre-Operative Diagnosis: 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 Ankle Arthroscopy, OCD debridement, Microfracture,Synovect arnoldo: Non Invasive traction was utilized Flouroscopy was [...] August 28, 2022 TIME: 1:04 PM PHONE: [phone] Normal [facility] CBC panel Auto (Bld)on 08-24 Erythrocyte distribution width (RBC) [Ratio] 13.3 % Normal 11.5-15.0 [facility] Comment on above: Order Comment: Speci men Type: BLOOD SPECIMENOrdering Facility: [facility] Address: [address] [place] [address] Performed By: #### 5 8410-2 ####[facility] LABIA [id number] [place] [address] Hematocrit (Bld) [Volume fraction] 37.6 % Normal 36.0-46.0 [facility] Comment on above: Order Comment: Speci men Type: BLOOD SPECIMENOrdering Facility: [facility] Address: [address] [place] [address] Performed By: #### 5 8410-2 ####[facility]IA [id number] [place] [address] Hemoglobin (Bld) [Mass/Vol] 12.4 g/dL Normal 11.5-15.5 [facility] Comment on above: Order Comment: Speci men Type: BLOOD SPECIMENOrdering Facility: [facility] Address: [address] [place] [address] Performed By: #### 5 8410-2 ####[facility] LABCLIA [id number] [place] [address] MCH (RBC) [Entitic mass] 30.4 pg Normal 26.0-34.0 [facility] Comment on above: Order Comment: Speci men Type: BLOOD SPECIMENOrdering Facility: [facility] Address: [address] [place] [address] Performed By: #### 5 8410-2 ####[facility] LABCLIA [id number] [place] [address] MCHC (RBC) [Mass/Vol] 33.0 g/dL Normal 30.5-36.0 [facility] Comment on above: Order Comment: Speci men Type: BLOOD SPECIMENOrdering Facility: [facility] Address: [address] [place] [address] Performed By: #### 5 8410-2 ####[facility] LABIA [id number] [place] [address] MCV (RBC) [Entitic vol] 92.2 fL Normal 80.0-100.0 [facility] Comment on above: Order Comment: Speci men Type: BLOOD SPECIMENOrdering Facility: [facility] Address: [address] [place] [address] Performed By: #### 5 8410-2 ####[facility]IA [id number] [place] [address] Nucleated RBC (Bld) [#/Vol] 10*3/uL Normal <0.01 [facility] Comment on above: Order Comment: Speci men Type: BLOOD SPECIMENOrdering Facility: [facility] Address: [address] [place] [address] Performed By: #### 5 8410-2 ####[facility] LABIA [id number] [place] [address] Platelet mean volume (Bld) [Entitic vol] 9.3 fL Normal 9.0-12.7 [facility] Comment on above: Order Comment: Speci men Type: BLOOD SPECIMENOrdering Facility: [facility] Address: [address] [place] [address] Performed By: #### 5 8410-2 ####[facility] LABCLIA [id number] [place] [address] Platelets (Bld) [#/Vol] 386 10*3/uL Normal 150-400 [facility] Comment on above: Order Comment: Speci men Type: BLOOD SPECIMENOrdering Facility: [facility] Address: [address] [place] [address] Performed By: #### 5 8410-2 ####[facility] LABCLIA [id number] [place] [address] RBC (Bld) [#/Vol] 4.08 10*6/uL Normal 3.90-5.20 [facility] Comment on above: Order Comment: Speci men Type: BLOOD SPECIMENOrdering Facility: [facility] Address: [address] [place] [address] Performed By: #### 5 8410-2 ####[facility] LABCLIA [id number] [place] [address] WBC (Bld) [#/Vol] 8.69 10*3/uL Normal 3.70-11.00 [facility] Comment on above: Order Comment: Speci men Type: BLOOD SPECIMENOrdering Facility: [facility] Address: [address] [place] [address] Performed By: #### 5 8410-2 ####[facility] LABCLIA [id number] [place] [address] Erythrocyte distribution width (RBC) [Ratio] 13.3 % 11.5 - 15.0 % [facility] Hematocrit (Bld) [Volume fraction] 37.6 % 36.0 - 46.0 % [facility] Hemoglobin (Bld) [Mass/Vol] 12.4 g/dL 11.5 - 15.5 g/dL [facility] MCH (RBC) [Entitic mass] 30.4 pg 26.0 - 34.0 pg [facility] MCHC (RBC) [Mass/Vol] 33.0 g/dL 30.5 - 36.0 g/dL [facility] MCV (RBC) [Entitic vol] 92.2 fL 80.0 - 100.0 fL [facility] Nucleated RBC (Bld) [#/Vol] <0.01 k/uL [facility] Platelet mean volume (Bld) [Entitic vol] 9.3 fL 9.0 - 12.7 fL [facility] Platelets (Bld) [#/Vol] 386 10*3/uL 150 - 400 k/uL [facility] RBC (Bld) [#/Vol] 4.08 10*6/uL 3.90 - 5.2 0 m/uL [facility] WBC (Bld) [#/Vol] 8.69 10*3/uL 3.70 - 11. 00 k/uL [facility] Basic metabolic 2000 panelon 08-15-2022 Anion gap [Moles/Vol] 8 mmol/L Low -18 [facility] Comment on above: Order Comment: Speci men Type: BLOOD SPECIMENOrdering Facility: [facility] Address: [address] [address] Performed By: #### 2 4321-2 ####[facility] LABCLIA [id number] [place] [address] Calcium [Mass/Vol] 9.4 mg/dL Normal 8.5-10.2 [facility] Comment on above: Order Comment: Speci men Type: BLOOD SPECIMENOrdering Facility: [facility] Address: [address] [address] Performed By: #### 2 4321-2 ####[facility] LABCLIA [id number] [place] [address] Chloride [Moles/Vol] 104 mmol/L Normal 97-105 [facility] Comment on above: Order Comment: Speci men Type: BLOOD SPECIMENOrdering Facility: [facility] Address: [address] [address] Performed By: #### 2 4321-2 ####[facility] LABCLIA [id number] [place] [address] CO2 [Moles/Vol] 25 mmol/L Normal 22-30 [facility] Comment on above: Order Comment: Speci men Type: BLOOD SPECIMENOrdering Facility: [facility] Address: [address] [place] [address] Performed By: #### 2 4321-2 ####[facility] LABIA [id number] [place] [address] Creatinine [Mass/Vol] 0.60 mg/dL Normal 0.58-0.96 [facility] Comment on above: Order Comment: Speci men Type: BLOOD SPECIMENOrdering Facility: [facility] Address: [address] [place] [address] Performed By: #### 2 4321-2 ####[facility] [id number] [place] [address] ESTIMATED GLOMERULAR FILTRATION RATE 126 mL/min/1.73m??? Normal >=60 [facility] Comment on above: Order Comment: Speci men Type: BLOOD SPECIMENOrdering Facility: [facility] Address: [address] [place] [address] Result Comment: Brandy mated Glomerular Filtration Rate [...] actual GFR. Performed By: #### 2 4321-2 ####[facility] LABIA [id number] [place] [address] Glucose [Mass/Vol] 109 mg/dL High 74-99 [facility] Comment on above: Order Comment: Speci men Type: BLOOD SPECIMENOrdering Facility: [facility] Address: [address] [place] [address] Result Comment: The [place] [employer] (ADA) provides guidance for cutoff [...] Standards of Medical Care in Diabetes 2016, [employer] [place] [employer]. Diabetes Care. 2016.39(Suppl 1). Performed By: #### 2 4321-2 ####[facility] LABCLIA [id number] [place] [address] Potassium [Moles/Vol] 3.8 mmol/L Normal 3.7-5.1 [facility] Comment on above: Order Comment: Speci men Type: BLOOD SPECIMENOrdering Facility: [facility] Address: [address] [place] [address] Performed By: #### 2 4321-2 ####[facility] LABCLIA [id number] [place] [address] Sodium [Moles/Vol] 137 mmol/L Normal 136-144 [facility] Comment on above: Order Comment: Speci men Type: BLOOD SPECIMENOrdering Facility: [facility] Address: [address] [place] [address] Performed By: #### 2 4321-2 ####[facility] LABCLIA [id number] [place] [address] Urea nitrogen [Mass/Vol] 20 mg/dL Normal 7-21 [facility] Comment on above: Order Comment: Speci men Type: BLOOD SPECIMENOrdering Facility: [facility] Address: [address] [address] Performed By: #### 2 4321-2 ####[facility] LABCLIA [id number] [place] [address] CBC panel Auto (Bld)on 08-15 Erythrocyte distribution width (RBC) [Ratio] 13.5 % Normal 11.5-15.0 [facility] Comment on above: Order Comment: Speci men Type: BLOOD SPECIMENOrdering Facility: [facility] Address: [address] [place] [address] Performed By: #### 5 8410-2 ####[facility] LABCLIA [id number] [place] [address] Hematocrit (Bld) [Volume fraction] 39.9 % Normal 36.0-46.0 [facility] Comment on above: Order Comment: Speci men Type: BLOOD SPECIMENOrdering Facility: [facility] Address: [address] [place] [address] Performed By: #### 5 8410-2 ####[facility] LABCLIA [id number] [place] [address] Hemoglobin (Bld) [Mass/Vol] 13.4 g/dL Normal 11.5-15.5 [facility] Comment on above: Order Comment: Speci men Type: BLOOD SPECIMENOrdering Facility: [facility] Address: [address] [place] [address] Performed By: #### 5 8410-2 ####[facility] LABCLIA [id number] [place] [address] MCH (RBC) [Entitic mass] 30.7 pg Normal 26.0-34.0 [facility] Comment on above: Order Comment: Speci men Type: BLOOD SPECIMENOrdering Facility: [facility] Address: [address] [place] [address] Performed By: #### 5 8410-2 ####[facility] LABCLIA [id number] [place] [address] MCHC (RBC) [Mass/Vol] 33.6 g/dL Normal 30.5-36.0 [facility] Comment on above: Order Comment: Speci men Type: BLOOD SPECIMENOrdering Facility: [facility] Address: [address] [place], [place] [address] Performed By: #### 5 8410-2 ####[facility] LABIA [id number] [place] [address] MCV (RBC) [Entitic vol] 91.5 fL Normal 80.0-100.0 [facility] Comment on above: Order Comment: Speci men Type: BLOOD SPECIMENOrdering Facility: [facility] Address: [address] [place], [place] [address] Performed By: #### 5 8410-2 ####[facility] [id number] [place] [address] Nucleated RBC (Bld) [#/Vol] 10*3/uL Normal <0.01 [facility] Comment on above: Order Comment: Speci men Type: BLOOD SPECIMENOrdering Facility: [facility] Address: [address] [place], [place] [address] Performed By: #### 5 8410-2 ####[facility] LABIA [id number] [place] [address] Platelet mean volume (Bld) [Entitic vol] 9.2 fL Normal 9.0-12.7 [facility] Comment on above: Order Comment: Speci men Type: BLOOD SPECIMENOrdering Facility: [facility] Address: [address] [place], [place] [address] Performed By: #### 5 8410-2 ####[facility] LABIA [id number] [place] [address] Platelets (Bld) [#/Vol] 409 10*3/uL High 150-400 [facility] Comment on above: Order Comment: Speci men Type: BLOOD SPECIMENOrdering Facility: [facility] Address: [address] [place], [place] [address] Performed By: #### 5 8410-2 ####[facility] LABCLIA [id number] [place] [address] RBC (Bld) [#/Vol] 4.36 10*6/uL Normal 3.90-5.20 [facility] Comment on above: Order Comment: Speci men Type: BLOOD SPECIMENOrdering Facility: [facility] Address: [address] [place] [address] Performed By: #### 5 8410-2 ####[facility] LABCLIA [id number] [place] [address] WBC (Bld) [#/Vol] 16.45 10*3/uL High 3.70-11.00 [facility] Comment on above: Order Comment: Speci men Type: BLOOD SPECIMENOrdering Facility: [facility] Address: [address] [place] [address] Performed By: #### 5 8410-2 ####[facility] LABCLIA [id number] [place] [address] Shayy 08-15-2022 [place] Telephone (BRENT) EDITH WELLS ([id number]) 1995 F Date Time Provider Department 08/15/22 TESSA SANCHEZ During your visit today, we recorded the following information about you: Kasi Mathur PA-C 08/15/2022 9:48 AM Signed Good morning Dr. Sanchez, This patient was seen by me for virtual PACC for upcoming ARTHROSCOPY ANKLE EXCISION 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 - Right scheduled with you on 08/28/2022 at [facility] under General. She had her [...] you for your time, Kasi Mathur PA-C [facility] Kasi Mathur PA-C 08/16/2022 8:38 AM Signed [...] [95] Preparations For Surgery [898] Primary Visit Diagnosis:Leukocytosis , unspecified type [D72.829] Order(s):CBC [CB] Order #: [id number] FUTURE Prescriptions as of 08/24/2022 - predniSONE [...] Encounter Status:Closed by KASI MATHUR on 08/24/22 [facility] HISTORY PHYSICALon HISTORY PHYSICAL HNO ID: [id number] Author: Kasi Mathur PA-C Service: ? Author Type: Physician Statistical Technician Type: HANDP Filed: 08/24/2022 1:26 PM Note [...] fevers. Neuro: No history of TIA's, stroke, MANAGER WASTEWATER tumor, impaired sensorium, hemiplegia, paraplegia or quadraplegia. No neurological symptoms or problems. Respiratory: Positive for former smoker (quit 2019, 10/30 ppd x 8 years, Negative for Asthma, COPD, Current cough, URI < 2 weeks Cardiovascular: Positive for: bradycardia and history of PVCs - history of Betaxolol tx, history of syncope x2 2017 and 2018 (had low potassium for 1 episode)- no further syncope, Negative for Recent ID, CAD, Chest Pain, CHF, Valvular Heart Disease, DVT/PE, edema, orthopnea, further syncope, palpitations GI: Positive for GERD - takes TUMS prn, Negative for Nausea, Vomiting, Abdominal pain, Hepatitis, Pancreatitis : No history of dysuria, frequency or incontinence,, stones or chronic kidney disease TREE WARDEN: Negative for abnormal vaginal bleeding, abnormal vaginal [...] full ROM RESPIRATORY: breathing non-labored and no grunting/flaring/retra ctions CHEST: equal chest rise with normal respiratory (more content not included)... Normal [facility] CNCOon 2022 CNCO Letter Text Normal [facility] CNOVon 2022 CNOV Office Visit (ORAVON ) EDITH WELLS ([id number]) 1995 F Date Time Provider Department 08/08/22 11:30 AM TESSA SANCHEZ During your visit today, we recorded the following information about you: Tessa Sanchez MD 2022 12:58 PM Signed New Patient Referring Physician: Charbel Wells is [...] As of Date: 2022 Allergen Noted Reaction JAM [NAPROXEN] 08/01/2018 Hives Fully Assessed 2022 PAST [...] Scan The patient's pertinent medical history from [facility] has been reviewed. PFOMIS forms have [...] anticipated outc (more content not included)... Normal [facility] XR LSPINE 2_3 VIEWSon 2021 XR [...] by: CHARBEL TAPIA Date: 2022-08-01 20:44 Normal [facility] Covid-19 PCR (CVDTB)on SARS-CoV-2 (COVID-19) RNA HAROLDO+probe Ql (Unsp spec) Not detected Normal NOT DETECTED [facility] Comment on above: Result Comment: When [...] for this test is supported by the [place] of Health and Human Service's declaration that [...] #### L IPA, CMP, SYEDA, PREGQNT #### [facility] [address] [address] [address] Judah Phipps GROUP A STREP CULTUREon S. pyogenes Ag Ql (Unsp spec) Culture Observations: NEGATIVE FOR GROUP A STREPTOCOCCUS. Normal [facility] Comment on above: Performed By: #### G RASTCX, SSCRN #### [facility] [address] [address] [address] Judah Phipps STREPT SCREENon 06-28-2022 STREP SCREEN A Negative Normal NEGATIVE [facility] Comment on above: Performed By: #### G RASTCX, SSCRN #### [facility] [address] [address] [address] Judah Phipps XR Ankle Complete Righton [...] by Kristi Olguin on 05/07/2022 1503 Normal [facility] XR Spine Lumbar 4+ Views*on 05-07-2022 XR [...] Kristi Olguin on 05/07/2022 1453 Normal [facility] Vital Signs Date Time Vital Sign Value Performing Clinician Facility 05-08-2023 09:30-0400 Body height 163.19 cm Charbel Rodriguez Other [employer] Other 05-08-2023 09:30-0400 Body mass index (BMI) [Ratio] 46.15 kg/m2 Charbel Rodriguez Other [employer] Other 05-08-2023 09:30-0400 Body temperature 98.3 [degF] Charbel Rodriguez Other [employer] Other 05-08-2023 09:30-0400 Body weight 122.93 kg Charbel Rodriguez Other [employer] Other 05-08-2023 09:30-0400 Diastolic blood pressure 84 mm[Hg] Charbel Rodriguez Other [employer] Other 05-08-2023 09:30-0400 Respiratory rate 18 /min Charbel Rodriguez Other [employer] Other 05-08-2023 09:30-0400 SaO2% (BldA) [Mass fraction] 98 % Charbel Rodriguez Other [employer] Other 05-08-2023 09:30-0400 Systolic blood pressure 130 mm[Hg] Charbel Rodriguez Other [employer] Other 04-12-2023 10:50-0400 Body height 163.19 cm Charbel Rodriguez Other [employer] Other 04-12-2023 10:50-0400 Body mass index (BMI) [Ratio] 45.47 kg/m2 Charbel Rodriguez Other [employer] Other 04-12-2023 10:50-0400 Body temperature 98.8 [degF] Charbel Rodriguez Other [employer] Other 04-12-2023 10:50-0400 Body weight 121.11 kg Charbel Rodriguez Other [employer] Other 04-12-2023 10:50-0400 Diastolic blood pressure 84 mm[Hg] Charbel Rodriguez Other [employer] Other 04-12-2023 10:50-0400 Respiratory rate 20 /min Charbel Rodriguez Other [employer] Other 04-12-2023 10:50-0400 SaO2% (BldA) [Mass fraction] 98 % Charbel Rodriguez Other [employer] Other 04-12-2023 10:50-0400 Systolic blood pressure 138 mm[Hg] Charbel Rodriguez Other [employer] Other 12-07-2022 11:20-0500 Body height 163.19 cm Ronda Guevara Other [employer] Other 12-07-2022 11:20-0500 Body mass index (BMI) [Ratio] 42.57 kg/m2 Ronda Guevara Other [employer] Other 12-07-2022 11:20-0500 Body temperature 97.2 [degF] Ronda Guevara Other [employer] Other 12-07-2022 11:20-0500 Body weight 113.4 kg Ronda Guevara Other [employer] Other 12-07-2022 11:20-0500 SaO2% (BldA) [Mass fraction] 98 % Ronda Guevara Other [employer] Other 08-14-2022 11:13-0400 Body height 165.1 cm [facility] 08-14-2022 11:13-0400 Body weight 120.66 kg [facility] 08-14-2022 11:13-0400 Heart rate 60 /min [facility] 08-13-2022 15:40-0400 Body height 163.19 cm Charbel Rodriguez Other [employer] Other 08-13-2022 15:40-0400 Body mass index (BMI) [Ratio] 45.64 kg/m2 Charbel Rodriguez Other [employer] Other 08-13-2022 15:40-0400 Body temperature 97.7 [degF] Charbel Rodriguez Other [employer] Other 08-13-2022 15:40-0400 Body weight 121.56 kg Charbel Rodriguez Other [employer] [facility] [employer] Other 08-13-2022 15:40-0400 Diastolic blood pressure 82 mm[Hg] Charbel Rodriguez Other [employer] [facility] [employer] Other 08-13-2022 15:40-0400 Respiratory rate 18 /min Charbel Rodriguez Other [employer] Other 08-13-2022 15:40-0400 SaO2% (BldA) [Mass fraction] 98 % Charbel Rodriguez Other [employer] Other 08-13-2022 15:40-0400 Systolic blood pressure 132 mm[Hg] Charbel Rodriguez Other [facility] [employer] Other 07-07-2022 18:14-0400 Body temperature 98.4 [degF] DO Charbel Rodriguez Work Phone: [facility] 07-07-2022 18:14-0400 Diastolic blood pressure 80 mm[Hg] DO Charbel Rodriguez Work Phone: [facility] 07-07-2022 18:14-0400 Heart rate 65 /min DO Charbel Rodriguez Work Phone: [facility] 07-07-2022 18:14-0400 Respiratory rate 20 /min DO Charbel Rodriguez Work Phone: [facility] 07-07-2022 18:14-0400 SaO2% (BldA) [Mass fraction] 99 % DO Charbel Rodriugez Work Phone: [facility] 07-07-2022 18:14-0400 Systolic blood pressure 147 mm[Hg] DO Charbel Rodriguez Work Phone: [facility] 07-07-2022 18:05-0400 Body height 165.1 cm DO Charbel Rodriguez Work Phone: [facility] 07-07-2022 18:05-0400 Body weight 113.39 kg DO Charbel Rodriguez Work Phone: [facility] Encounters Encounter Date Encounter Type Care Provider Facility Start: 04-20-2024 End: 04-20-2024 ambulatory RYAN MICHAEL Not Available Start: 04-13-2024 End: 04-13-2024 ambulatory DO Charbel Rodriguez Work Phone: [facility] Work Phone: Start: 04-13-2024 End: 04-13-2024 Departed Referred DO Charbel Rodriguez Work Phone: [facility] Start: 04-13-2024 Non-patient / Non-visit DO Keegan id Girrosey Work Phone: [facility] Work Phone: Start: 04-07-2024 End: 04-07-2024 ambulatory RYAN MICHAEL Not Available Start: 03-31-2024 Non-patient / Non-visit DO Keegan id Girvin Work Phone: [facility] Work Phone: Start: 03-31-2024 End: 03-31-2024 ambulatory RYAN MICHAEL Not Available Start: 03-16-2024 Non-patient / Non-visit DO Keegan id Girvin Work Phone: [facility]ician [facility] Work Phone: Start: 03-16-2024 End: 03-16-2024 ambulatory RYAN MICHAEL Not Available Start: 03-11-2024 Non-patient / Non-visit DO Keegan id Girvin Work Phone: [facility] Physician [facility] Work Phone: Start: 03-04-2024 End: 03-04-2024 ambulatory SONIA A VISCI Not Available Start: 02-10-2024 End: 02-10-2024 ambulatory SONIA A VISCI Not Available Start: 01-27-2024 End: 01-27-2024 ambulatory SONIA A VISCI Not Available Start: 01-11-2024 End: 01-11-2024 ambulatory JOHNSON THOMPSONEPERT Not Available Start: 12-30-2023 End: 12-30-2023 ambulatory [...] 09-13-2023 End: 09-13-2023 ambulatory Charbel Rodriguez Other [employer] Other Start: 09-13-2023 [facility] Start: 09-10-2023 End: 09-10-2023 ambulatory SONIA A VISCI Not Available Start: 06-24-2023 End: 06-24-2023 ambulatory Charbel Rodriguez Other [employer] Other Start: 06-24-2023 [facility] Start: 06-03-2023 End: 06-03-2023 ambulatory Charbel Rodriguez Other [employer] Other Start: 06-03-2023 Telephone encounter Charbel Rodriguez [facility] Start: 05-27-2023 End: 05-27-2023 ambulatory Charbel Rodriguez Other [employer] Other Start: 05-27-2023 Telephone encounter Charbel Rodriguez [facility] Start: 05-08-2023 End: 05-08-2023 ambulatory Charbel Rodriguez Other [employer] Other Start: 05-08-2023 Office outpatient vi sit 15 minutes Charbel Rodriguez [facility] Start: 04-26-2023 End: 04-26-2023 ambulatory Charbel Rodriguez Other [employer] Other Start: 04-26-2023 Telephone encounter Charbel Rodriguez [facility] Start: 04-19-2023 End: 04-19-2023 ambulatory Charbel Rodriguez Other [employer] Other Start: 04-19-2023 Telephone encounter Charbel Rodriguez [facility] Start: 04-17-2023 End: 04-17-2023 ambulatory CHARBEL CAMARILLOROSEY Facility:[facility] Start: 04-17-2023 End: 04-17-2023 Patient encounter procedure Tessa Sanchez MD Work Phone: Orthopaedics Comment on above: 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) Start: 04-12-2023 End: 04-12-2023 ambulatory Charbel Rodriguez Other [employer] Other Start: 04-12-2023 Office outpatient vi sit 15 minutes Charbel Rodriguez [facility] Start: 03-13-2023 End: 03-13-2023 ambulatory CHARBEL RODRIGUEZ Facility:[facility] Start: 02-28-2023 Telephone encounter Tessa bates MD Work Phone: Orthopaedics Comment on above: Electronic Communica tion (PT order faxed today) Start: 01-10-2023 Telephone encounter Tessa bates MD Work Phone: Orthopaedics Comment on above: Return To Work Lette r Start: 01-02-2023 End: 01-02-2023 ambulatory CHARBEL RODRIGUEZ Facility:[facility] Start: 01-02-2023 End: 01-02-2023 Subsequent hospital visit by physician Mike Morin [facility] Work Phone: Radiology Comment on above: [...] 12-07-2022 End: 12-07-2022 ambulatory Ronda Guevara Other [employer] Other Start: 12-07-2022 Office outpatient vi sit 25 minutes Ronda Guevara [facility] Start: 12-07-2022 Telephone encounter Charbel Rodriguez [facility] Start: 11-19-2022 End: 11-19-2022 ambulatory Charbel Rodriguez Other [employer] Other Start: 11-19-2022 Telephone encounter Charbel Rodriguez [facility] Start: 11-14-2022 End: 11-14-2022 Patient encounter procedure Tessa Sanchez MD Work Phone: Orthopaedics Comment on above: 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) Start: 11-14-2022 End: 11-14-2022 Subsequent hospital visit by physician [facility] Work Phone: Radiology Comment on above: Osteochondritis diss ecans of right talus [M93.271] Start: 11-14-2022 End: 11-14-2022 ambulatory CHARBEL RODRIGUEZ [employer] Other Start: 11-14-2022 Telephone encounter Charbel Rodriguez [facility] Start: 11-13-2022 End: 11-14-[address] CHARBEL RODRIGUEZ Facility: Start: 11-12-2022 End: 11-12-2022 ambulatory Charbel Rodriguez Other [employer] Other Start: 11-12-2022 Telephone encounter Charbel Rodriguez [facility] Start: 10-31-2022 Orders Only Tessa Vasquez Work Phone: Orthopaedics Comment on above: 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) Start: 10-10-2022 End: 10-10-2022 ambulatory CHARBEL ARROYO RABIAROSEY Facility:[facility] Start: 10-10-2022 End: 10-10-2022 Patient encounter procedure Tessa Sanchez MD Work Phone: Orthopaedics Comment on above: 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) Start: 09-26-2022 Telephone encounter Tessa bates MD Work Phone: Orthopaedics Comment on above: Patient Question Start: 09-12-2022 End: 09-12-2022 ambulatory CHARBEL ARROYO RABIAROSEY Facility:[facility] Start: 09-12-2022 End: 09-12-2022 Patient encounter procedure [employer] Work Phone: Orthopaedics Comment on above: 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) Start: 09-05-2022 End: 09-05-2022 ambulatory Charbel Rodriguez Other [employer] Other Start: 09-05-2022 Telephone encounter Charbel Rodriguez [facility] Start: 09-03-2022 End: 09-03-2022 ambulatory Charbel Rodriguez Other [employer] Other Start: 09-03-2022 Telephone encounter Charbel Rodriguez [facility] Comment on above: post op right ankle swelling and pain Start: 09-02-2022 Telephone encounter Eyad marroquin MD Work Phone: Surgical Intensive Care Unit Comment on above: Patient Question Start: 08-29-2022 End: 08-29-2022 Patient encounter procedure [employer] Work Phone: Orthopaedics Comment on above: 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) Start: 08-29-2022 End: 08-29-2022 ambulatory CHARBEL RODRIGUEZ [employer] Other Start: 08-29-2022 Telephone encounter Charbel Rodriguez [facility] Start: 08-28-2022 End: 08-28-2022 ambulatory TESSA SANCHEZ Facility:[facility] Start: 08-27-2022 Refill Tessa Vasquez Work Phone: Orthopaedics Comment on above: Refill Request Start: 08-24-2022 End: 08-24-2022 ambulatory CHARBEL ARROYO RABIAROSEY Facility:[facility] Start: 08-16-2022 End: 08-16-2022 ambulatory Charbel Rodriguez Other [employer] Other Start: 08-16-2022 Telephone encounter Charbel Rodriguez [facility] Start: 08-15-2022 Telephone encounter Tessa bates MD Work Phone: Pre Anesthesia Comment on above: Results; Preparation s For Surgery Start: 08-15-2022 End: 08-15-2022 ambulatory CHARBEL RODRIGUEZ Facility:[facility] Start: 08-14-2022 Encounter for other preprocedural examination CHARBEL RODRIGUEZ [facility] Start: 08-14-2022 End: 08-14-2022 Admission to establishment [facility] Start: 08-14-2022 End: 08-14-2022 ambulatory TESSA SANCHEZ Pre Anesthesia Comment on above: Preop examination (P rimary Dx); Anemia, unspecified type; Difficult intravenous access; Acute bilateral low back pain without sciatica; History of syncope; History of palpitations; Former smoker; BMI 40.0-44.9, adult ([facility]) Start: 08-14-2022 End: 08-14-2022 Preprocedural examination done [facility]est[facility] Start: 08-13-2022 End: 08-13-2022 ambulatory Charbel Rodriguez Other [employer] Other Start: 08-13-2022 Office outpatient vi sit 15 minutes Charbel Rodriguez [facility] Start: 08-13-2022 Telephone encounter Charbel Rodriguez [facility] Start: 2022 End: 2022 ambulatory CHARBEL RODRIGUEZ Facility:[facility] Start: 2022 End: 2022 Patient encounter procedure Tesas Sanchez MD Work Phone: Orthopaedics Comment on above: 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) Start: 08-01-2022 End: 08-01-[address] CHARBEL RODRIGUEZ Facility:[facility] Start: 07-09-2022 End: 07-09-2022 ambulatory Charbel Rodriguez Other [employer] Other Start: 07-09-2022 Telephone encounter Charbel Rodriguez [facility] Start: 07-07-2022 End: 07-07-2022 Emergency department patient visit DO Charbel Rodriguez Work Phone: [facility] Start: 06-28-2022 End: 06-28-[address] CHARBEL RODRIGUEZ Facility: Start: 05-23-2022 End: 05-23-2022 ambulatory Charbel Rodriguez Other [employer] Other Start: 05-23-2022 Telephone encounter Charbel Rodriguez [facility] Start: 01-06-[address] CHARBEL RODRIGUEZ Facilit y:[facility] Procedures Date Procedure Procedure Detail Performing Clinician Start: 03-31-2024 Group B Streptococcu s Culture DO Charbel Rodriguez Work Phone: Start: 01-02-2023 Radex ankle complete minimum 3 views Tessa Sanchez MD Work Phone: Start: 11-14-2022 Radex ankle complete minimum 3 views Tessa Sanchez MD Work Phone: H/O: section Status post C-secti on DO Charbel Rodriguez Work Phone: Plan of Treatment Date Care Activity Detail Author Start: 11-29-2031 Urine microalbumin profile DTaP,Tdap,Td Vaccine (7 - Td or Tdap) [facility] Start: 06-28-2023 Influenza vaccination [facility] Start: 08-14-2022 End: 10-14-2022 Basic metabolic 2000 panel - Serum or Plasma BASIC METABOLIC PNL Lab Routine History of syncope Expected: 08/14/2022, Expires: 10/14/2022 [facility] Work Phone: Comment on above: Expected: 08/14/2022 , Expires: 10/14/2022 Start: 08-14-2022 End: 10-14-2022 CBC panel - Blood by Automated count CBC Lab Routine Preop examination Anemia, unspecified type Expected: 08/14/2022, Expires: 10/14/2022 [facility] Work Phone: Comment on above: Expected: 08/14/2022 , Expires: 10/14/2022 Start: 07-07-2022 X-ray of right ankle XR ankle RT min 3V* [facility] Start: 07-07-2022 XR Ankle - right GE 3 Views [facility] Work Phone: Start: 06-28-2022 Influenza vaccination INFLUENZA (#1) [facility] Start: 10-28-2021 DEPRESSION ASSESSMENT DEPRESSION ASS ESSMENT [facility] Start: 2015 PAP TESTING PAP TESTING [facility] Start: 2013 Urine microalbumin profile DTAP,TDAP,TD (1 - Tdap) [facility] Start: 2012 [facility] Start: 2012 HIV SCREENING HIV SCREENING [facility] Start: 2000 PNEUMOCOCCAL (1 - PCV) PNEUMOCOCCAL (1 - PCV) [facility] Start: 02-06-1995 COVID-19 VACCINE (#1) COVID-19 VACCI NE (#1) [facility] Start: 1994 HEPATITIS B (1 of 3 - 3-dose series) HEPATITIS B (1 of 3 - 3-dose series) [facility] Patient Education Ankle Sprain ED [facility] Work Phone: Patient referral [facility] Work Phone: End: 11-30-2023 XR ANKLE GENERAL 3V AP/LAT/OBL RIGHT XR ANKLE GENERAL 3V AP/LAT/OBL RIGHT Radiology Routine Osteochondritis dissecans of right talus 1 Occurrences starting 11/02/2022 until 11/30/2023 [facility] Work Phone: Comment on above: 1 Occurrences starti ng 11/02/2022 until 11/30/2023 [facility] Immunizations Immunization Date Immunization Notes Care Provider Fa cility 11-29-2021 tetanus toxoid, reduced diphtheria toxoid, and acellular pertussis vaccine, adsorbed DO Charbel Rodriguez Work Phone: [facility] NEGATED: Highlighted row has not occurred!08-07-2019 influenza, seasonal, injectable Patient Objection Charbel Rodriguez Other [employer] Other Payers Date Payer Category Payer Self-pay [id number] 2022 Medicaid [id number] 2. [id number] 2021 Medicaid [id number] 5 2018 Unknown [id number] [id number] 5 1994 Unknown [id number] 2.16.84 0.1.501523.3.579.2.593 1994 Unknown [id number] 2.16.84 0.1.531574.3.579.2.593 1994 Unknown [id number] 2.16.84 0.1.893787.3.579.2.593 1994 Unknown [id number] 2.16.84 0.1.969799.3.579.2.593 1994 Unknown [id number] 2.16.84 0.1.533222.3.579.2.1259 1994 Unknown [id number] 2.16.84 0.1.289578.3.579.2.1259 1994 Unknown [id number] 2.16.84 0.1.913975.3.579.2.1259 1994 Unknown [id number] 2.16.84 0.1.774354.3.579.2.1259 1994 Unknown [id number] 2.16.84 0.1.727426.3.579.2.1259 1994 Unknown [id number] 2.16.84 0.1.782534.3.579.2.1259 1994 Unknown [id number] 2.16.84 0.1.484530.3.579.2.1259 1994 Unknown [id number] 2.16.84 0.1.566063.3.579.2.1259 1994 Unknown [id number] 2.16.84 0.1.128941.3.579.2.1259 1994 Unknown [id number] 2.16.84 0.1.573771.3.579.2.1259 1994 Unknown [id number] 2.16.84 0.1.070455.3.579.2.1259 1994 Unknown [id number] 2.16.84 0.1.593443.3.579.2.1259 1994 Unknown [id number] 2.16.84 0.1.894726.3.579.2.1259 1994 Unknown [id number] 2.16.840 .1.312023.3.579.2.1259 1994 Unknown [id number] 2.16.840 .1.786835.3.579.2.9 1994 Unknown [id number] 2.16.840 .1.190674.3.579.2.1259 1994 Unknown [id number] 2.16.840. 1.660300.3.579.2.1259 1960 Medicaid [id number] 1959 Unknown [id number] Medicaid [place] Advantage [id number] Unknown [id number] 2.16.8 40.1.896130.3.579.2.531 Social History Date Type Detail Facility Start: 07-07-2022 End: 01-13-2024 Tobacco smoking status DEIS Ex-smoker (finding) [facility] Start: 1995 Sex Assigned At Female F [facility] Start: 10-03-2018 Tobacco smoking stat us DEIS Occasional tobacco smoker [facility] Start: 10-03-2018 End: 08-14-2022 Tobacco use and exposure Smokeless tobacco non-user [facility] Start: 01-01-2019 End: 08-14-2022 Alcohol intake Current non-drinker of alcohol (finding) [facility] Start: 1995 Sex Assigned At Not on file [facility] Start: 08-14-2022 End: 11-10-2022 Sex Assigned At [facility] [employer] Other End: 10-28-2019 History of tobacco use Current smoker [facility] Work Phone: End: 10-28-2019 History of tobacco use Cigarette Smoker [facility] Work Phone: Start: 08-14-2022 End: 11-10-2022 Cigarettes smoked current (pack per day) - Reported 0.3 [facility] Start: 08-04-2022 End: 08-28-2022 Exposure to SARS-CoV-2 (event) Not sure [facility] Work Phone: National Score (1-100), lower number is lower risk 86 [facility] Clinical Notes 05-23-2022 to 06-03-2023 Note Date & Type Note Facility 06-03-2023 Evaluation note Encounter Date Diagnosis Assessment Notes May, Depression (ICD-10 - F32.9) [employer] Other 07-12-2023 Evaluation note* Encounter Date [...] her dose should be increased or not. [employer] Other 06-30-2023 Evaluation note* Encounter Date Diagnosis Assessment Notes Treatment Notes Treatment Clinical Notes Mar, Weight gain (ICD-10 - R63.5) [employer] Other 06-21-2023 NoteHNO ID: [id number] Author: Tessa Sanchez MD Service: ? Author [...] records. This note was partially generated using WhipTail voice recognition system, and there may be some incorrect words, spellings, and punctuation that were not noted in checking the note before saving. Tessa Sanchez M.D.[facility]06-21-2023 History of Present illness Narrative* Tessa [...] and is of normal mood and affect. [facility] 07/02/2022 Gait Cycle: Normal Yes, Limp: [...] records. This note was partially generated using [employer]Tail voice recognition system, and there may be some incorrect words, spellings, and punctuation that were not noted in checking the note before saving. Tessa Sanchez M.D. documented in this encounterPrem[facility]06-16-2023 Evaluation note* Encounter Date Diagnosis Assessment [...] can take a multivitamin daily ([place] Complete) [employer] Other 05-17-2023 NoteHNO ID: [id number] Author: Tessa Sanchez MD Service: ? Author [...] and is of normal mood and affect. [facility] 07/02/2022 Gait Cycle: Normal Yes, Limp: [...] records. This note was partially generated using WhipTail voice recognition system, and there may be some incorrect words, spellings, and punctuation that were not noted in checking the note before saving. Tessa Sanchez M.D.[facility]05-05-2023 Miscellaneous Notes* Telephone Encounter - Lizzette Adams RN - 03/01/2023 10:21 AM EDT Faxed today at 10:20am. Lizzette Adams RN * Telephone Encounter - Margy Contreras Pss - 02/28/2023 4:08 PM EDT Patient wants to get physical therapy at [facility] in [place]. Has been approved by [facility] and she can now schedule. Asking for recent therapy order from Dr Sanchez be faxed to [facility] in [place] at [phone]. documented in this encounterPrem[facility]03-17-2023 Miscellaneous Notes* Telephone Encounter - Lizzette [...] calling: self Call patient at: at home [phone] (home) [phone] (cell) Was an appointment scheduled: No Closing statement: Results or non-symptom based questions: Thank you for calling [facility], your call will be returned within [...] back to the office to update CALL [phone] documented in this encounterPremier Health [facility] Hospital03-08-2023 NoteHNO ID: [id number] Author: RT Rubina(R) Service: Radiology Author Type: [...] Cespedes RT RT(R) January 02, 2023 4:10 [facility]03-08-2023 NoteHNO ID: [id number] Author: Tessa Sanchez MD Service: ? Author [...] records. This note was partially generated using WhipTail voice recognition system, and there may be [...] Past Histories independently gathered by the clinical youth support worker and the remaining scribed note accurately describes my personal service to the patient. Tessa Sanchez M.D.[facility]03-08-2023 History of Present illness Narrative* Blaise [...] Florence Cespedes RT(R) January 02, 2023 4:10 PM documented in this encounterPremier Health [facility]03-08-2023 History of Present illness Narrative* Tessa [...] records. This note was partially generated using WhipTail voice recognition system, and there may be [...] Past Histories independently gathered by the clinical youth support worker and the remaining scribed note accurately describes my personal service to the patient. Tessa Sanchez M.D. documented in this encounterPremier Health [facility] Hospital02-24-2023 Miscellaneous Notes* Telephone Encounter - Vinay Corona RN - 12/21/2022 5:34 PM EST This RN called and spoke with patient. Letter sent via [employer] (Chapter 11) she report she received it. 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 She was grateful for the call. Vinay Corona PLANT MAINTENANCE MECHANIC * Telephone Encounter - Ana Luisa Hernandez [...] that prevented her form having PT. CALL [phone] * Telephone Encounter - Autumn Clayton - [...] with update Please advise documented in this encounterPremier Health [facility] Hospital02-24-2023 Miscellaneous Notes* Telephone Encounter - Vinay [...] office to complete them. documented in this encounterPremier Health [facility] Hospital02-10-2023 Evaluation note* Encounter Date Diagnosis Assessment [...] treatment plan. Patient left in stable condition [employer] Other 01-23-2023 Evaluation note* Encounter Date Diagnosis Assessment Notes Treatment Notes Treatment Clinical Notes Oct, Cough (ICD-10 - R05.9) Oct, Sore throat (ICD-10 - J02.9) Oct, Headache (ICD-10 - R51.9) Oct, Congestion of nasal sinus (ICD-10 - R09.81) [employer] Other 01-18-2023 NoteHNO ID: [id number] Author: RT Marquis(Wayne) Service: Radiology Author Type: [...] BY: RT Marquis(R) November 14, 2022 4:05 [facility]01-18-2023 History of Present illness Narrative* Syeda Jennings [...] 14, 2022 4:05 PM documented in this encounterPremier Health [facility] Hospital01-18-2023 Evaluation note* Encounter Date Diagnosis Assessment Notes Treatment Notes Treatment Clinical Notes Oct, Leukocytosis (ICD-10 - D72.829) [employer] Other 01-17-2023 NoteHNO ID: [id number] Author: Tessa Sanchez MD Service: ? Author [...] proprioception and follow-up in 4 weeks [facility] History of Present illness Narrative* Tessa Sanchez [...] weeks Tessa Sanchez MD documented in this encounterPremier Health [facility] Hospital01-16-2023 Evaluation note* Encounter Date Diagnosis Assessment [...] and will have this done at the [facility] lab. She can call for results. [...] Oct, Other 2:54 PM - 3:02 PM [employer] Other 12-14-2022 NoteHNO ID: [id number] Author: Tessa Sanchez MD Service: ? Author [...] in 6 weeks for recheck Tessa Sanchez [facility]12-14-2022 History of Present illness Narrative* Tessa Sanchez [...] recheck Tessa Sanchez MD documented in this encounterPremier Health Miami Valley Hospital12-02-2022 Miscellaneous Notes* Telephone Encounter - Lizzette [...] pm. Patient requesting a return call through #[phone] #[phone]. The second number is her boyfriends line, Elias. Patient gives okay to leave me ssage with Elias if needed. Please advise. documented in this encounterPremier Health [facility] Hospital11-16-2022 NoteHNO ID: [id number] Author: Tessa Sanchez MD Service: ? Author [...] follow up in 4 weeks. Tessa Sanchez [facility]11-16-2022 NoteHNO ID: [id number] Author: Alfred Campo Cast Service: ? Author Type: ? Type: Progress Notes Filed: 09/12/2022 4:10 PM Note Text: PT ASSESSMENT - CASTING ROOM Edith presents for cast removal. Applied pneumatic aircast walker(HAD PRIOR TO SURGERY) to Right leg non-weight bearing Patient has been instructed in Care of boot.. Alfred Campo Cast Beeper: [id number] [facility] Hospital11-16-2022 History of Present illness Narrative* Tessa [...] weeks. Tessa Sanchez MD documented in this encounterPremier Health [facility] Hospital11-16-2022 History of Present illness Narrative* Alfred Campo Cast - 09/12/2022 4:04 PM EST PT ASSESSMENT - CASTING ROOM Edith presents for cast removal. Applied pneumatic aircast walker(HAD PRIOR TO SURGERY) to Right leg non-weight bearing Patient has been instructed in Care of boot.. Alfred Campo Cast Beeper: [id number] documented in this encounterPremier Health [facility] Hospital11-07-2022 Miscellaneous Notes* Telephone Encounter - Lizzette [...] until 09/12. Please advise. documented in this encounterPremier Health Miami Valley Hospital11-07-2022 NoteHNO ID: [id number] Author: Lizzette Adams RN Service: ? Author [...] was the physician present today. Lizzette Adams [facility]NPike [facility]11-06-2022 Miscellaneous Notes* Telephone Encounter - Eyad Shelby [...] MD Orthopaedic Surgery, PGY-3 documented in this encounterPremier Health Miami Valley Hospital11-02-2022 NoteHNO ID: [id number] Author: Alfred Campo Cast Service: ? Author Type: ? Type: Progress Notes Filed: 08/29/2022 3:44 PM Note Text: PT ASSESSMENT - CASTING ROOM Edith presents for Application of cast. Applied short cast: to Right leg non-weight bearing Patient has been instructed in Care of cast.. Alfred Campo Cast Beeper: [id number] Community Hospital11-02-2022 History of Present illness Narrative* Alfred Campo Cast - 08/29/2022 3:40 PM EDT PT ASSESSMENT - CASTING ROOM Edith presents for Application of cast. Applied short cast: to Right leg non-weight bearing Patient has been instructed in Care of cast.. Alfred Campo Cast Beeper: [id number] documented in this encounterPremier Health [facility] Hospital11-01-2022 NoteHNO ID: [id number] Author: Mike Alcantar MD Service: Anesthesiology Author Type: Anesthesiologist Type: Anesthesia Procedure Notes Filed: 08/28/2022 1:01 PM Note Text: ANESTHESIOLOGY PROCEDURE NOTE Peripheral Nerve Block General Information Procedure Start Time/Medication Administration: 08/28/2022 12:48 PM Procedure End time: 08/28/2022 12:58 PM Patient location during procedure: PACU Timeout Performed Pre-procedure: timeout performed (1380) Consent Obtained: Yes 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, patient and care head orthopedic team physician Reason for block: post-op pain management/at surgeon's [...] August 28, 2022 TIME: 1:00 PM CSN: [id number] NoteHNO ID: [id number] Author: GEORGIE Tinsley Service: Anesthesiology Author Type: Boatbuilder Apprentice Wood Type: Anesthesia Procedure Notes Filed: 08/28/2022 10:57 [...] August 28, 2022 TIME: 10:56 AM CSN: [id number] NoteHNO ID: [id number] Author: Mike Alcantar MD Service: Anesthesiology Author Type: Anesthesiologist Type: Anesthesia Procedure Notes Filed: 08/28/2022 9:35 AM Note Text: ANESTHESIOLOGY PROCEDURE NOTE Peripheral Nerve Block General Information Procedure Start Time/Medication Administration: 08/28/2022 9:16 AM Procedure End time: 08/28/2022 9:24 AM Patient location during procedure: pre-op Timeout Performed Pre-procedure: timeout performed (920) Consent Obtained: Yes 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, patient and care head orthopedic team physician Reason for block: post-op pain management/at surgeon's [...] August 28, 2022 TIME: 9:33 AM CSN: [id number] Miscellaneous Notes* Telephone Encounter - Kasi Mathur [...] Right scheduled with you on 08/28/2022 at [facility] under General. She had her [...] Kasi Mathur PA-C PACC documented in this encounterPremier Health [facility] Hospital10-18-2022 Instructions* Patient Instructions* Kasi Mathur PA-C - 08/14/2022 11:33 AM EDT Lab in [place]: [facility] [place] [id number] PATIENT PREOPERATIVE INSTRUCTIONS Tessa Sanchez MD has scheduled you for your procedure at this surgery center: [facility]: [phone] --[address] [place] [address]. Please read below carefully for your personalized [...] Procedures: - YOU MUST HAVE A RESPONSIBLE RADIATION ONCOLOGY THERAPIST TAKE YOU HOME. A STAFF THERAPIST OR CUT OFF MACHINE OPERATOR CANNOT BE MADE A RESPONSIBLE RADIATION ONCOLOGY THERAPIST. - We recommend that a responsible person [...] Advance Directive, please fax a copy to [phone] or email to for it to be [...] day. Kasi Mathur PA-C documented in this encounterPremier Health [facility] Hospital10-18-2022 History and physical note * Kasi [...] fevers. Neuro: No history of TIA's, stroke, MANAGER WASTEWATER tumor, impaired sensorium, hemiplegia, paraplegia or quadraplegia. No neurological symptoms or problems. Respiratory: Positive for former smoker (quit 2019, 10/30 ppd x 8 years, Negative for Asthma, COPD, Current cough, URI < 2 weeks Cardiovascular: Positive for: bradycardia and history of PVCs - history of Betaxolol tx, history ofsyncope x2 2017 and 2018 (had low potassium for 1 episode)- no further syncope, Negative for RecentMI, CAD, Chest Pain, CHF, Valvular Heart Disease, DVT/PE, edema, orthopnea, further syncope, palpitations GI: Positive for GERD - takes TUMS prn, Negative for Nausea, Vomiting, Abdominal pain, Hepatitis, Pancreatitis : No history of dysuria, frequency or incontinence,, stones or chronic kidney disease TREE WARDEN: Negative for abnormal vaginal bleeding, abnormal vaginal [...] visit: Labs per care everywhere reviewed: 11/29/2021 [facility] CBC Hgb 9.0 (11.8-15.4) Hct 26.5% [...] a prior CC echocardiographic exam for comparison. personnel monitor 09/17/2018 Patient had a min HR of 36 bpm, max HR of 156 bpm, and avg HR of 74 bpm. Predominant underlying rhythm was Sinus Rhythm. No Isolated SVEs, SVE Couplets, or SVE Triplets were present. Isolated VEs were frequent (8.2%, 32345), and no VE Couplets or VE Triplets [...] been asymptomatic. 7. Former smoker Quit 2019, 10/30 ppd x years 8. BMI 40.0-44.9, adult ([facility]) BMI 44 METS: Climb a flight of [...] 11:04 AM PAGER/CONTACT #: documented in this encounterPremier Health [facility] Hospital10-17-2022 Evaluation note* Encounter Date Diagnosis Assessment [...] she can discuss this treatment with her performance specialist. She is having surgery on 08-28-22. Guidance [...] be following with Dr. Sanchez at the [facility], she was referred to him by Dr. Cosby. She thinks it is bone that is trying to heal. [employer] Other 10-12-2022 NoteHNO ID: [id number] Author: Tessa Sanchez MD Service: ? Author [...] As of Date: 2022 Allergen Noted Reaction JAM [NAPROXEN] 08/01/2018 Hives Fully Assessed 2022 PAST [...] Scan The patient's pertinent medical history from [facility] has been reviewed. PFOMIS forms have [...] the patient, and the (more content not included)...[facility]10-12-2022 History of Present illness Narrative* Tessa Sanchez MD - 2022 11:30 AM EDT New Patient Referring Physician: Charbel Cosby Edith Wells is a 27 year old female referred by Charbel Cosyb for her right foot pain. She states [...] Scan The patient's pertinent medical history from [facility] has been reviewed. PFOMIS forms have [...] records. This note was partially generated using WhipTail voice recognition system, and there may be [...] Past Histories independently gathered by the clinical youth support worker and the remaining scribed note accurately describes my personal service to the patient. Tessa Sanchez M.D. documented in this encounterPremier Health [facility] Hospital07-27-2022 Evaluation note* Encounter Date Diagnosis Assessment [...] S82.899A) right ankle She has seen an retail service specialist twice for a right ankle fracture. [...] Apr, Other 9:55 AM - 10:05 AM [employer] Other Evaluation noteNo assessment information available [facility] Work Phone: Evaluyllxw note* Diagnosis Osteochondritis dissecans of right talus- Primary documented in this encounter [facility] noteNo InformationNort Cels[employer] Other evaluation note* Diagnosis Preop examination- Primary Preoperative examination, [...] of right talus documented in this encounter [facility]* Diagnosis Leukocytosis, unspecified type- Primary Osteochondritis dissecans of right talus 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 documented in this encounter [facility]* Diagnosis Osteochondritis dissecans of right talus- Primary documented in this encounter [facility]* Diagnosis Osteochondritis dissecans of right talus- Primary documented in this encounter [facility]* Diagnosis Osteochondritis dissecans of right talus- Primary documented in this encounter [facility]* Diagnosis Osteochondritis dissecans of right talus- Primary documented in this encounter [facility]* Diagnosis Osteochondritis dissecans of right talus- Primary documented in this encounter [facility] note* Diagnosis Osteochondritis dissecans of right talus- Primary documented in this encounter [facility] note* Diagnosis Osteochondritis dissecans of right talus- Primary documented in this encounter [facility] note* Diagnosis Osteochondritis dissecans of right talus documented in this encounter [facility] general Narrative - Reported* Type Description Date Medical History reflux Medical History menstrual irregularity Medical History vertigo Medical History anxiety Medical History ankle fx right Surgical History T & A 2004 Surgical History Mole removal Surgical History C section Surgical History IUD -Reyna 03/31/17 Surgical History 11/28/21 Hospitalization History See Above [employer] Other History general Narrative - Reported* Type Description Date Medical History reflux Medical History menstrual irregularity Medical History vertigo Medical History anxiety Medical History ankle fx right Surgical History T & A 2003 Surgical History Mole removal Surgical History C section Surgical History IUD -Reyna 03/31/17 Surgical History 11/28/21 Surgical History right ankle surgery 08/28/22 Hospitalization History See Above [employer] Other [facility] general Narrative - Reported* Type Description Date Medical History reflux Medical History menstrual irregularity Medical History vertigo Medical History anxiety Medical History ankle fx right Surgical History T & A 2003 Surgical History Mole removal Surgical History C section Surgical History IUD -Reyna 03/31/17 Surgical History 11/28/21 Surgical History right ankle surgery 08/28/22 Surgical History IUD removed 03/06/23 Hospitalization History See Above [employer] Other Reason for referral (narrative)* Diagnostic Procedure Only (Routine) - Pending Review Specialty Diagnoses / Procedures Referred By Juve duarte Referred To Contact XR IMAGING Diagnoses Osteochondritis dissecans of right talus Procedures XR ANKLE GENERAL 3V AP/LAT/OBL RIGHT RADEX ANKLE COMPLETE MINIMUM [address] [place] [address] [place] [address] Xr Imaging Referral ID Status Reason Start Date Expiration Date Visits Requested Visits Authorized [id number] Pending Review Auto-Generat ed Referral 11/02/2022 11/30/2023 1 1 [facility] for referral (narrative)* - Pending Review Specialty Diagnoses / Procedures Referred By Contac t Referred To Contact Physical Therapy Diagnoses Osteochondritis dissecans of right talus Procedures CONSULT [place] [address] [place] [address] Referral ID Status Reason Start Date Expiration Date V isits Requested Visits Authorized [id number] Pending Review 04/17/2023 07/16/2023 1 1 [facility] for referral (narrative)* Diagnostic Procedure Only (Routine) - Closed Specialty Diagnoses / Procedures Referred By Contac t Referred To Contact XR IMAGING Diagnoses Osteochondritis dissecans of right talus Procedures XR ANKLE GENERAL 3V AP/LAT/OBL RIGHT RADEX ANKLE COMPLETE MINIMUM [address] [place] [address] [place] [address] [place] [address] Referral ID Status Reason Start Date Expiration Date V isits Requested Visits Authorized [id number] Closed Auto-Generate d Referral 01/02/2023 01/31/2024 1 1 [facility] for referral (narrative)* Diagnostic Procedure Only (Routine) - Closed Specialty Diagnoses / Procedures Referred By Contac t Referred To Contact XR IMAGING Diagnoses Osteochondritis dissecans of right talus Procedures XR ANKLE GENERAL 3V AP/LAT/OBL RIGHT RADEX ANKLE COMPLETE MINIMUM [address] [place] [address] [place] [address] [place] [address] Referral ID Status Reason Start Date Expiration Date V isits Requested Visits Authorized [id number] Closed Auto-Generate d Referral 11/02/2022 11/30/2023 1 1 [facility] Summary Purpose Family History No Family History Records Found Relationship Condition Age at Onset Recorded Date/T domingo Not Specified No pertinent family history Unknown Relationship Condition Age at Onset Recorded Date/T domingo Not Specified No pertinent family history Unknown grandparent Unknown Aneurysm Unknown grandparent Family history of co ronary artery bypass graft Unknown grandparent Heart disease Unknown Unknown Advance Directives No Advanced Directives Records Found Advance Directive Response Recorded Date/ Time Advance Directives No September 2:17pm Advance Directive Response Recorded Date/ Time Advance Directives No January 12 9:18pm Chief Complaint and Reason for Visit Chief Complaint rt ankle pain Chief Complaint Unknown Reason for Referral Specialty Diagnoses / Procedures Referred By Contac t Referred To Contact [facility] Diagnoses Osteochondritis dissecans of right talus Procedures CONSULT TO PHYSICAL THERAPY PHYSICAL THERAPY EVALUATION HIGH COMPLEX [address] [place] [address] [place] [address] [facility] [place] [address] [place] [id number] Referral ID Status Reason Start Date Expiration Date Visits Requested Visits Authorized [id number] Pending Review Auto-Generat ed Referral 2 09/12/2023 1 1 Additional Source Comments INFORMATION SOURCE (unrecogn ized section and content) DATE CREATED AUTHOR 05/08/2022 [facility] dical Specialist DATE CREATED AUTHOR AUTHOR'S ORGANIZ ATION 08/29/2022 [facility] DATE CREATED AUTHOR AUTHOR'S ORGANIZ ATION 11/15/2022 [facility] DATE CREATED AUTHOR AUTHOR'S ORGANIZ ATION 05/28/2023 [facility] DATE CREATED AUTHOR AUTHOR'S ORGANIZ ATION 04/20/2024 [facility] y[facility] DATE CREATED AUTHOR AUTHOR'S ORGANIZ ATION 04/21/2024 [facility] dical Specialists [employer]IC Care Teams (unrecognized sec tion and content) Team Status: Inactive Member Role Status Dates Charbel Rodriguez DO Primary Care Provider Active Constantine Yee PA-C Emergency Provider Active Team Status: Active Member Role Status Dates Charbel Rodriguez DO Primary Care Provider Active Grain Drier Relationship Specialty Start Date End Date Charbel Rodriguez, DO [address] [place] [address] PCP - General Family Medicine 07/07/18 Charbel Cosby [address] [place] [address] Referring Orthopedics 07/18/22 Grain Drier Relationship Specialty Start Date End Date Charbel Rodriguez, DO [address] [place] [address] PCP - [facility] Family Medicine 07/07/18 Charbel Cosby [address] [place] [address] Referring Orthopedics 07/18/22 Grain Drier Relationship Specialty Start Date End Date Charbel Rodriguez, DO [address] [place] [address] PCP - [facility] Medicine 07/07/18 Charbel Cosby [address] [place] [address] Referring Orthopedics 07/18/22 Grain Drier Relationship Specialty Start Date End Date Charbel Rodriguez, DO [address] [place] [address] PCP - [facility] Family Medicine 07/07/18 Charbel Cosby [address] [place] [address] Referring Orthopedics 07/18/22 Grain Drier Relationship Specialty Start Date End Date Charbel Rodriguez, DO [address] [place] [phone] PCP - [facility] Family Medicine 07/07/18 Charbel Cosby [address] [place] [address] Referring Orthopedics 07/18/22 Grain Drier Relationship Specialty Start Date End Date Charbel Rodriguez, DO [address] [place] [phone] PCP - General Family Medicine 07/07/18 Charbel Cosby [address] [place] [phone] Referring Orthopedics 07/18/22 Grain Drier Relationship Specialty Start Date End Date Charbel Rodriguez, DO [address] [place] [phone] PCP - [facility] 07/07/18 Charbel Cosby [address] [place] [address] Referring Orthopedics 07/18/22 Grain Drier Relationship Specialty Start Date End Date Charbel Rodriguez, DO [address] [place] [address] PCP - [facility] Medicine 07/07/18 Charbel Cosby [address] [place] [phone] Referring Orthopedics 07/18/22 Grain Drier Relationship Specialty Start Date End Date Charbel Rodriguez, DO [address] [place] [phone] PCP - [facility] Family Medicine 07/07/18 Charbel Cosby [address] [place] [phone] Referring Orthopedics 07/18/22 Grain Drier Relationship Specialty Start Date End Date Charbel Rodriguez, DO [address] [place] [address] PCP - [facility] Medicine 07/07/18 Charbel Cosby [address] [place] [address] Referring Orthopedics 07/18/22 Grain Drier Relationship Specialty Start Date End Date Charbel Rodriguez, DO [address] [place] [address] PCP - [facility] Medicine 07/07/18 Charbel Cosby [address] [place] [address] Referring Orthopedics 07/18/22 Grain Drier Relationship Specialty Start Date End Date Charbel Rodriguez, DO [address] [place] [address] PCP - [facility] 07/07/18 Charbel Cosby [address] [place] [address] Referring Orthopedics 07/18/22 Grain Drier Relationship Specialty Start Date End Date Charbel Rodriguez, DO [address] [place] [address] PCP - [facility] 07/07/18 Charbel Cosby [address] [place] [address] Referring Orthopedics 07/18/22 Grain Drier Relationship Specialty Start Date End Date Charbel Rodriguez, DO [address] [place] [address] PCP - [facility] 07/07/18 Charbel Cosby [address] [place] [address] Referring Orthopedics 07/18/22 Grain Drier Relationship Specialty Start Date End Date Charbel Rodriguez DO [address] [place] [phone] PCP - [facility] Medicine 07/07/18 Charbel Cosby [address] [place] [address] Referring Orthopedics 07/18/22 Grain Drier Relationship Specialty Start Date End Date Charbel Rodriguez DO [address] [place] [phone] PCP - [facility] Medicine 07/07/18 Charbel Cosby [email or web address] [address] Referring Orthopedics 07/18/22 Team Status: Active Member Role Status Dates Roland Gomez LPN Care Manager Active Charbel Rodriguez DO Primary Care Provider Active Team Status: Active Member Role Status Ishan Rodriguez DO Primary Care Provider Active S tart: March 11, 2024 Ryan Rodriguez Attending Provider Active Start: 2023 Team Status: Active Member Role Status Ishan Rodriguez DO Primary Care Provider Active S tart: March 16, 2024 Ryan Rodriguez Attending Provider Active Start: 2023 Team Status: Active Member Role Status Ishan Rodriguez DO Primary Care Provider Active S tart: March 31, 2024 Ryan Rodriguez Attending Provider Active Start: 2023 Team Status: Active Member Role Status Ishan Rodriguez DO Primary Care Provider Active S tart: April 13, 2024 Ryan Rodriguez Attending Provider Active Start: 2023 Team Status: Inactive Member Role Status Ishan Rodriguez DO Primary Care Provider Active S tart: April 13, 2024 End: April 13, 2024 Ryan Rodriguez Attending Provider Active Start: 2023 End: April 13, 2024 Goals (unrecognized section and content) Goals may be documented in a n alternate sectionNo InformationNo InformationNo InformationNo InformationNo InformationNo InformationNo InformationNo InformationNo InformationNo InformationNo InformationNo InformationNo InformationNo InformationNo InformationNo InformationNo InformationNo InformationNo InformationNo InformationNo InformationGoals may be documented in an alternate section Source Comments (unrecognize d section and content) In the event this informatio n is protected by the Federal Confidentiality of Alcohol and Drug Abuse Patient Records regulations: The Federal rules restrict any use of the information to criminally investigate or prosecute any alcohol or drug abuse patient.[facility] the event this information is protected by the Federal Confidentiality of Alcohol and Drug Abuse Patient Records regulations: The Federal rules restrict any use of the information to criminally investigate or prosecute any alcohol or drug abuse patient.[facility] the event this information is protected by the Federal Confidentiality of Alcohol and Drug Abuse Patient Records regulations: The Federal rules restrict any use of the information to criminally investigate or prosecute any alcohol or drug abuse patient.[facility] the event this information is protected by the Federal Confidentiality of Alcohol and Drug Abuse Patient Records regulations: The Federal rules restrict any use of the information to criminally investigate or prosecute any alcohol or drug abuse patient.[facility] the event this information is protected by the Federal Confidentiality of Alcohol and Drug Abuse Patient Records regulations: The Federal rules restrict any use of the information to criminally investigate or prosecute any alcohol or drug abuse patient.[facility] the event this information is protected by the Federal Confidentiality of Alcohol and Drug Abuse Patient Records regulations: The Federal rules restrict any use of the information to criminally investigate or prosecute any alcohol or drug abuse patient.[facility] the event this information is protected by the Federal Confidentiality of Alcohol and Drug Abuse Patient Records regulations: The Federal rules restrict any use of the information to criminally investigate or prosecute any alcohol or drug abuse patient.[facility] the event this information is protected by the Federal Confidentiality of Alcohol and Drug Abuse Patient Records regulations: The Federal rules restrict any use of the information to criminally investigate or prosecute any alcohol or drug abuse patient.[facility] the event this information is protected by the Federal Confidentiality of Alcohol and Drug Abuse Patient Records regulations: The Federal rules restrict any use of the information to criminally investigate or prosecute any alcohol or drug abuse patient.[facility] the event this information is protected by the Federal Confidentiality of Alcohol and Drug Abuse Patient Records regulations: The Federal rules restrict any use of the information to criminally investigate or prosecute any alcohol or drug abuse patient.[facility] the event this information is protected by the Federal Confidentiality of Alcohol and Drug Abuse Patient Records regulations: The Federal rules restrict any use of the information to criminally investigate or prosecute any alcohol or drug abuse patient.[facility] the event this information is protected by the Federal Confidentiality of Alcohol and Drug Abuse Patient Records regulations: The Federal rules restrict any use of the information to criminally investigate or prosecute any alcohol or drug abuse patient.[facility] the event this information is protected by the Federal Confidentiality of Alcohol and Drug Abuse Patient Records regulations: The Federal rules restrict any use of the information to criminally investigate or prosecute any alcohol or drug abuse patient.[facility] the event this information is protected by the Federal Confidentiality of Alcohol and Drug Abuse Patient Records regulations: The Federal rules restrict any use of the information to criminally investigate or prosecute any alcohol or drug abuse patient.[facility] the event this information is protected by the Federal Confidentiality of Alcohol and Drug Abuse Patient Records regulations: The Federal rules restrict any use of the information to criminally investigate or prosecute any alcohol or drug abuse patient.[facility] the event this information is protected by the Federal Confidentiality of Alcohol and Drug Abuse Patient Records regulations: The Federal rules restrict any use of the information to criminally investigate or prosecute any alcohol or drug abuse patient.[facility] the event this information is protected by the Federal Confidentiality of Alcohol and Drug Abuse Patient Records regulations: The Federal rules restrict any use of the information to criminally investigate or prosecute any alcohol or drug abuse patient.[facility] the event this information is protected by the Federal Confidentiality of Alcohol and Drug Abuse Patient Records regulations: The Federal rules restrict any use of the information to criminally investigate or prosecute any alcohol or drug abuse patient.[facility] the event this information is protected by the Federal Confidentiality of Alcohol and Drug Abuse Patient Records regulations: The Federal rules restrict any use of the information to criminally investigate or prosecute any alcohol or drug abuse patient.[facility] the event this information is protected by the Federal Confidentiality of Alcohol and Drug Abuse Patient Records regulations: The Federal rules restrict any use of the information to criminally investigate or prosecute any alcohol or drug abuse patient.[facility] the event this information is protected by the Federal Confidentiality of Alcohol and Drug Abuse Patient Records regulations: The Federal rules restrict any use of the information to criminally investigate or prosecute any alcohol or drug abuse patient.[facility] Reason for Visit (unrecogniz ed section and content) Reason Comments Radio Gen RMP Specialty Diagnoses / Procedures Referred By Contac t Referred To Contact XR IMAGING Diagnoses Osteochondritis dissecans of right talus Procedures XR ANKLE GENERAL 3V AP/LAT/OBL RIGHT RADEX ANKLE COMPLETE MINIMUM 3 [place] [address] [facility] [place] [address] [place] [address] Referral ID Status Reason Start Date Expiration Date V isits Requested Visits Authorized [id number] Closed Auto-Generate d Referral 11/02/2022 11/30/2023 1 [...] Expiration Date V isits Requested Visits Authorized [id number] Closed Auto-Generate d Referral 01/02/2023 01/31/2024 1 [...] BE BASED ON THE PRIMARY CLINICAL RECORDS. [facility]. provides no warranty or guarantee of the accuracy or completeness of information in this document.
== END 2024-04-26 00:31 | disposition home or self-care (01) ==
PROVIDERS: Emergency Provider Internal Medicine; PCP Family Medicine
DX: O90.89 Other complications of the puerperium, not elsewhere classified (principal); L76.34 Postprocedural seroma of skin and subcutaneous tissue following other procedure; Z87.891 Personal history of nicotine dependence; Z98.891 History of uterine scar from previous surgery
CPT/HCPCS: 36415; 74177; 80053; 83605; 85025; 99285; Q9967

== ENCOUNTER 2024-05-28 11:06 | Outpatient (OUT) | payer OTHER, SELFPAY ==
--- OUTSIDE RECORDS SUMMARY | 2024-05-28 11:15 | XMS_ITS | CCD ---
Author Organization [facility] Care Team Providers Care Data Network Architect Name Role Phone DO Charbel Rodriguez Primary Care Provider [phone] ANGELY Yee Emergency Provider Charbel Rodriguez DO Primary Care Provider Charbel Cosby Unavailable Charbel Rodriguez Unavailable TESSA SANCHEZ Admitting Unavailable TESSA SANCHEZ Attending Unavailable CHARBEL RODRIGUEZ Primary Care Unavailable Charbel Rodriguez DO Primary Care Provider [phone] Charbel Cosby Unavailable MICHAEL, DR BARGER Primary [...] Unavailable Charbel Rodriguez DO Primary Care Provider [phone] DO Charbel Rodriguez Primary Care Provider [phone] Ryan Rodriguez Attending Provider Ryan Rodriguez Admitting [...] RYAN Attending Unavailable MICHAEL, RYAN Attending Unavailable ELMER, SYEDA Attending Unavailable VISCI, SONIA A Attending Unavailable VISCI, SONIA A Referring Unavailable Allergies Allergy Classification Reported Allergen(s) Allergy Type Date of Onset Reaction(s) Facility Ethinyl Estradiol (1 source) Ethinyl Estradiol Drug Allergy 07-15-20 [facility] Latex (1 source) Latex Substance Allergy 07-15-20 23 Rash, rash,blisters [facility] Levonorgestrel (1 source) Levonorgestrel Drug Allergy 07-15-20 [facility] NSAIDs (1 source) Naproxen Drug Allergy 07-15-20 23 [facility] Phentermine (1 source) Phentermine Drug Allergy 07-15-20 23 chest pain/ elevated BP [facility] tomato allergenic extract (1 source) tomato allergenic extract Drug Allergy 07-15-20 stomach upset [facility] (20 sources) Latex; Translations: [Latex] Propensity to adverse reactions 07-07-20 Rash, Rash, Blisters, rash,blisters [facility] (12 sources) Naproxen; Translations: [NAPROXEN] Drug Allergy 08-01-20 [facility] (14 sources) Naproxen; Translations: [Aleve] Drug Allergy 11-25-19 [facility] Repository (13 sources) Seasonal allergy Propensity to adverse reactions Unknown Web[facility] Other (13 sources) Tomato Products Propensity to adverse reactions stomach upset [facility] Other (1 source) natural latex rubber Drug allergy (disorder) 09-04-20 [facility] Repository (8 sources) Seasonale Drug allergy Unknown WebPT [facility] Other (8 sources) Tomatoes Drug allergy stomach upset [facility] Other (5 sources) Phentermine Drug Allergy chest pain/ elevated BP [facility] Other (1 source) Ethinyl Estradiol Drug Allergy 07-15-20 [facility] Repository (1 source) Levonorgestrel Drug Allergy 07-15-20 [facility] Repository (1 source) Phentermine Drug Allergy 07-15-20 [facility] Repository (1 source) tomato allergenic extract Drug Allergy 07-15-20 [facility] Repository Medications Current Medications Medication Drug Class(es) Dates Sig (Normalized) Sig (Original) brompheniramine maleate 0.4 mg/ml / dextromethorphan hydrobromide 2 mg/ml / pseudoephedrine hydrochloride 6 mg/ml oral solution (5 sources) alpha-Adrenergic Agonist, Uncompetitive Q-frzdwl-X-aspartat e Receptor Antagonist, Sigma-1 Agonist Start: 12-07-19 23 take 10 mL by mouth every six hours Vmrgjpiut-Accvnieu-AH 30-2-10 MG/5ML 10 mL Orally every 6 [...] on above: Take 1 capsule by mo [facility] four times daily. cyclobenzaprine hydrochloride 5 [...] Comment on above: Take [facility] daily as needed. 1 in [...] Basophils (Bld) [#/Vol] 0.0 10 3/uL 0.0-0.1 [facility] Basophils/100 WBC Auto (Bld) on 04-13-2024 Basophils/100 WBC (Bld) 0.2 % 0.2-2.0 [facility] Buprenorphine [Presence] in Urineon 04-13-2024 Buprenorphine Ql (U) Negative NEGATIVE [facility] Comment on above: DRUG CLASS TEST SYST EM CUT-OFF CONCENTRATIONS ARE ASFOLLOWS:AMP (Amphetamine): 500 ng/mLBAR (Barbiturates): 200 ng/mLBZO (Benzodiazepines): 150 ng/mLBUP (Buprenorphine): 10 ng/mLCOC (Cocaine): 150 ng/mLmAMP (Methamphetamine): 500 ng/mLMTD (Methadone): 200 ng/mLOPI (Opiates): 100 ng/mLOXY (Oxycodone): 100 ng/mLPCP (Phencyclidine): 25 ng/mLTHC (Cannabinoids): 50 ng/mLTCA (Trycyclic Antidepressants): 300 ng/mL Eosinophils/100 WBC Auto (Bl d)on 04-13-2024 Eosinophils/100 WBC (Bld) 1.2 % 0.9-7.0 [facility] Erythrocyte distribution wid th Auto (RBC) [Ratio]on 04-13-2024 Erythrocyte distribution width (RBC) [Ratio] 14.7 % 11.0-15.0 [facility] Hematocrit Auto (Bld) [Volum e fraction]on 04-13-2024 Hematocrit (Bld) [Volume fraction] 31.2 % 36.0-48.0 [facility] Hemoglobin [Mass/volume] in Bloodon 04-13-2024 Hemoglobin (Bld) [Mass/Vol] 10.1 g/dL 12.0-16.0 [facility] Sung 04-13-2024 L Specimen: [id number] Received: 04/13/24 Status: SY Warren Num: [id number] Spec Type: Surgical Subm Dr: Ryan Rodriguez Tissues: A Fallopian Tube - Sterilization (BILATERAL FALLOPIAN TUBES) B Placenta - 3rd Trimester (Greater than 28 weeks) (PLACENTA) Procedures: HE/6, Gross/Micro L5, Gross/Micro L2 Age/ Patient Sex Location Account Attending Physician Edith Wells 28/F LABELL [id number] Ryan Rodriguez SPEC NUM: [id number] RECD: 04/13/24 STATUS: SY WARREN NUM: [id number] CIELO: 06/17/24- SUBM DR: Ryan Rodriguez ENTERED: 04/13/24-1333 [facility] DR: Anna,Lab SPEC TYPE: Surgical DEPT: MERLINE GORMAN ORDERED: [...] amniotic fluid Repeat section, salpingectomy. ---- Specimen: [id number] Received: 04/13/24 Status: SY Warren Num: [id number] Spec Type: Surgical Subm Dr: Ryan Rodriguez Tissues: A Fallopian Tube - Sterilization (BILATERAL FALLOPIAN TUBES) B Placenta - 3rd Trimester (Greater than 28 weeks) (PLACENTA) Procedures: HE/6, Gross/Micro L5, Gross/Micro L2 ---- Patient: Edith Wells [id number] (Continued) ---- Specimen: [id number] Received: 04/13/24 (Continued) Signed (signature on file) Lashae Phipps MD 04/19/24 1544 ---- Specimen: [id number] Received: 04/13/24 Status: SY Warren Num: [id number] Spec Type: Surgical Subm Dr: Ryan Rodriguez Tissues: A Fallopian Tube - Sterilization (BILATERAL FALLOPIAN TUBES) B Placenta - 3rd Trimester (Greater than 28 weeks) (PLACENTA) Procedures: HE/6, Gross/Micro L5, Gross/Micro L2 ---- Patient: Edith Wells [id number] (Continued) ---- Specimen: [id number] Received: 04/13/24-1333 (Continued) Gross Description A. Received [...] luminal center lined by unremarkable calhoun mucosa. Aerodynamic Consultant sections of each tube are submitted in [...] adjacent (more content not included)... Normal [facility] Laboratory - Chemistry and C hemistry - challengeon 04-13-2024 Bilirubin Ql (U) Negative NEGATIVE [facility] Glucose (U) [Mass/Vol] Negative NEGATIVE [facility] Ketones Ql (U) TRACE mg/dL NEGATIVE [facility] pH (U) 7.0 [pH] 5.0-9.0 [facility] Specific gravity (U) [Rel density] 1.025 1.005-1.025 [facility] Urobilinogen Qn (U) 0.2 {Vasquez'U}/dL 0.2-1.0 [facility] Laboratory - Drug toxicology on 04-13-2024 Amphetamines Ql (U) Negative NEGATIVE [facility] Benzodiazepines Ql (U) Negative NEGATIVE [facility] Cocaine Ql (U) Negative NEGATIVE [facility] Opiates Ql (U) Negative NEGATIVE [facility] Phencyclidine Ql (U) Negative NEGATIVE [facility] Laboratory - Hematology and Cell countson 04-13-2024 Immature granulocytes/100 WBC (Bld) 1.1 % 0.0-0.5 [facility] Laboratory - Specimen inform ationon 04-13-2024 Appearance (U) CLEAR CLEAR [facility] Color (U) YELLOW YELLOW [facility] Laboratory - Urinalysison Amorphous sediment LM Ql (Urine sed) FEW [facility] Leukocyte esterase Test strip Ql (U) Negative NEGATIVE [facility] Mucus Ql (Urine sed) NONE SEEN NONE SEEN [facility] Nitrite Ql (U) Negative NEGATIVE [facility] Protein Ql (U) Negative NEG/TRACE [facility] Leukocytes [#/volume] correc zee for nucleated erythrocytes in Blood by Automated counon 04-13-2024 WBC corrected for nucl RBC Auto (Bld) [#/Vol] 12.9 10 3/uL 4.0-11.0 [facility] Lymphocytes Auto (Bld) [#/Vo l]on 04-13-2024 Lymphocytes (Bld) [#/Vol] 3.6 10 3/uL 1.2-3.8 [facility] Lymphocytes/100 WBC Auto (Bl d)on 04-13-2024 Lymphocytes/100 WBC (Bld) 27.5 % 20.5-60.0 [facility] MCH Auto (RBC) [Entitic mass ]on 04-13-2024 MCH (RBC) [Entitic mass] 29.5 pg 26.7-34.0 [facility] MCHC Auto (RBC) [Mass/Vol]on 04-13-2024 MCHC (RBC) [Mass/Vol] 32.4 g/dL 29.9-35.2 [facility] MCV Auto (RBC) [Entitic vol] on 04-13-2024 MCV (RBC) [Entitic vol] 91.2 fL 81.0-99.0 [facility] Methadone [Presence] in Urin e by Screen methodon 04-13-2024 Methadone Screen Ql (U) Negative NEGATIVE [facility] Monocytes Auto (Bld) [#/Vol] on 04-13-2024 Monocytes (Bld) [#/Vol] 0.7 10 3/uL 0.3-0.8 [facility] Monocytes/100 WBC Auto (Bld) on 04-13-2024 Monocytes/100 WBC (Bld) 5.7 % 1.7-12.0 [facility] Neutrophils Auto (Bld) [#/Vo l]on 04-13-2024 Neutrophils (Bld) [#/Vol] 8.3 10 3/uL 1.4-6.5 [facility] Neutrophils/100 WBC Auto (Bl d)on 04-13-2024 Neutrophils/100 WBC (Bld) 64.3 % 43.0-75.0 [facility] No Panel Informationon 04-13 Eosinophils # (Auto) 0.2 10 3/uL 0.0-0.7 [facility] Immature Granulocyte # (Auto) 0.14 10 3/uL 0.00-0.03 [facility] Urine Bacteria MODERATE #/HPF NONE SEEN [facility] Urine Barbiturates Screen Negative NEGATIVE [facility] Urine Culture Reflexed YES [facility] Urine Marijuana (THC) Screen Negative NEGATIVE [facility] Urine Methamphetamines Screen Negative NEGATIVE [facility] Urine Occult Blood Negative NEGATIVE [facility] Urine Other Casts NONE SEEN #/LPF NONE SEEN [facility] Urine Other Crystals Seen #/HPF None Seen [facility] Urine RBC 0-2 #/HPF 0-2 [facility] Urine Squamous Epithelial Cells FEW #/LPF NONE/RARE [facility] Urine WBC 0-2 #/HPF NONE SEEN [facility] Platelet mean volume Auto (B ld) [Entitic vol]on 04-13-2024 Platelet mean volume (Bld) [Entitic vol] 10.8 fL 9.5-13.5 [facility] Platelets Auto (Bld) [#/Vol] on 04-13-2024 Platelets (Bld) [#/Vol] 357 10 3/uL 150-450 [facility] RBC Auto (Bld) [#/Vol]on RBC (Bld) [#/Vol] 3.42 10 6/uL 4.20-5.40 [facility] Urine tricyclic antidepressa nt measurementon 04-13-2024 Tricyclic antidepressants (U) [Mass/Vol] Negative NEGATIVE [facility] oxyCODONE+oxyMORphone [Prese nce] in Urine by Screen methodon 04-13-2024 oxyCODONE+oxyMORphone Screen Ql (U) Negative NEGATIVE [facility] No Panel InformationOrdered By: Ryan Rodriguez on 03-31-2024 Group B Streptococcus Culture [facility] Glucose mean value [Mass/vol ume] in Blood Estimated from glycated hemoglobinon 03-16-2024 Average glucose Estimated from glycated hemoglobin (Bld) [Mass/Vol] 114 mg/dL [facility] Laboratory - Hematology and Cell countson 03-16-2024 HbA1c (Bld) [Mass fraction] 5.6 % 4.5-6.2 [facility] Comment on above: ADA RECOMMENDED LIMI T 4.0 - 6.0ADA THERAPEUTIC TARGET < 7.0ACTION SUGGESTED> 7.0 No Panel Informationon 03-16 Hepatitis C Interpretation Comment . [facility] Comment on above: Not infected with HC V unless early or acute infection issuspected (which may be delayed in an immunocompromisedindividual), or other evidence exists to indicate HCVinfection.Performed at: [facility] [place], [place] [id number] Director: Frankie Aguero PhD, Phone: [phone] Serum or plasma hepatitis C virus antibody signal/cutoff ratio by immunoassay (relation 03-16-2024 HCV Ab Signal/Cutoff IA [Rel units/Vol] Non-Reactive Non Reactive [facility] Basophils Auto (Bld) [#/Vol] on 03-11-2024 Basophils (Bld) [#/Vol] 0.0 10 3/uL 0.0-0.1 [facility] Basophils/100 WBC Auto (Bld) on 03-11-2024 Basophils/100 WBC (Bld) 0.1 % 0.2-2.0 [facility] Eosinophils/100 WBC Auto (Bl d)on 03-11-2024 Eosinophils/100 WBC (Bld) 0.6 % 0.9-7.0 [facility] Erythrocyte distribution wid th Auto (RBC) [Ratio]on 03-11-2024 Erythrocyte distribution width (RBC) [Ratio] 14.1 % 11.0-15.0 [facility] Hematocrit Auto (Bld) [Volum e fraction]on 03-11-2024 Hematocrit (Bld) [Volume fraction] 30.2 % 36.0-48.0 [facility] Hemoglobin [Mass/volume] in Bloodon 03-11-2024 Hemoglobin (Bld) [Mass/Vol] 9.9 g/dL 12.0-16.0 [facility] Laboratory - Chemistry and C hemistry - challengeon 03-11-2024 Chloride [Moles/Vol] 103 mmol/L 98-107 [facility] CO2 [Moles/Vol] 25.7 mmol/L 21.0-32.0 [facility] Potassium [Moles/Vol] 4.0 mmol/L 3.5-5.1 [facility] Sodium [Moles/Vol] 135 mmol/L 136-145 [facility] Bilirubin Ql (U) Negative NEGATIVE [facility] Glucose (U) [Mass/Vol] Negative NE[facility] Ketones Ql (U) TRACE mg/dL NEGATIVE [facility] pH (U) 7.5 [pH] 5.0-9.0 [facility] Specific gravity (U) [Rel density] 1.020 1.005-1.025 [facility] Urobilinogen Qn (U) 0.2 {Vasquez'U}/dL 0.2-1.0 [facility] Laboratory - Hematology and Cell countson 03-11-2024 Immature granulocytes/100 WBC (Bld) 0.7 % 0.0-0.5 [facility] Laboratory - Specimen inform ationon 03-11-2024 Appearance (U) CLEAR CLEAR [facility] Color (U) YELLOW YELLOW [facility] Laboratory - Urinalysison Leukocyte esterase Test strip Ql (U) Negative NEGATIVE [facility] Nitrite Ql (U) Negative NEGATIVE [facility] Protein Ql (U) TRACE mg/dL NEG/TRACE [facility] Leukocytes [#/volume] correc zee for nucleated erythrocytes in Blood by Automated counon 03-11-2024 WBC corrected for nucl RBC Auto (Bld) [#/Vol] 9.9 10 3/uL 4.0-11.0 [facility] Lymphocytes Auto (Bld) [#/Vo l]on 03-11-2024 Lymphocytes (Bld) [#/Vol] 2.9 10 3/uL 1.2-3.8 [facility] Lymphocytes/100 WBC Auto (Bl d)on 03-11-2024 Lymphocytes/100 WBC (Bld) 29.1 % 20.5-60.0 [facility] MCH Auto (RBC) [Entitic mass ]on 03-11-2024 MCH (RBC) [Entitic mass] 30.6 pg 26.7-34.0 [facility] MCHC Auto (RBC) [Mass/Vol]on 03-11-2024 MCHC (RBC) [Mass/Vol] 32.8 g/dL 29.9-35.2 [facility] MCV Auto (RBC) [Entitic vol] on 03-11-2024 MCV (RBC) [Entitic vol] 93.2 fL 81.0-99.0 [facility] Monocytes Auto (Bld) [#/Vol] on 03-11-2024 Monocytes (Bld) [#/Vol] 0.6 10 3/uL 0.3-0.8 [facility] Monocytes/100 WBC Auto (Bld) on 03-11-2024 Monocytes/100 WBC (Bld) 6.3 % 1.7-12.0 [facility] Neutrophils Auto (Bld) [#/Vo l]on 03-11-2024 Neutrophils (Bld) [#/Vol] 6.2 10 3/uL 1.4-6.5 [facility] Neutrophils/100 WBC Auto (Bl d)on 03-11-2024 Neutrophils/100 WBC (Bld) 63.2 % 43.0-75.0 [facility] No Panel Informationon 03-11 Eosinophils # (Auto) 0.1 10 3/uL 0.0-0.7 [facility] Immature Granulocyte # (Auto) 0.07 10 3/uL 0.00-0.03 [facility] Urine Microscopic Review NO [facility] Urine Occult Blood Negative NEGATIVE [facility] Platelet mean volume Auto (B ld) [Entitic vol]on 03-11-2024 Platelet mean volume (Bld) [Entitic vol] 9.9 fL 9.5-13.5 [facility] Platelets Auto (Bld) [#/Vol] on 03-11-2024 Platelets (Bld) [#/Vol] 345 10 3/uL 150-450 [facility] RBC Auto (Bld) [#/Vol]on RBC (Bld) [#/Vol] 3.24 10 6/uL 4.20-5.40 [facility] Serum or plasma anion gap de terminationon 03-11-2024 Anion gap [Moles/Vol] 10.3 mmol/L [facility] CNPNon 05-27-2023 CNPN Telephone (4CQ) EDITH WELLS ([id number]) 1995 F Date Time Provider Department 05/27/23 TESSA SANCHEZ 4CQ During your visit today, we recorded the following information about you: Glenis Gavin 05/27/2023 12:11 PM Signed Edith Wells is calling Tessa Sanchez MD today. [facility] therapist at [facility] is asking if she can continue PT but change it to 2 days on land and 0 days in water per week. Needs new order sent to [facility] in [place]. She did not have the fax number. [...] time off per provider's discretion. Patient will strip picker the note when ready. Call her to inform when she can pick it up. Call cell number below. May leave a message. No chief complaint on file. Patient has been identified by name and birthdate. Duration of symptoms: Person calling: self Call patient at: on cell and , it is OK to leave message [phone] (home) [phone] (cell) Was an appointment scheduled: No Closing statement: Results or non-symptom based questions: Thank you for calling [facility], your call will be returned within the next business day. Glenis Lizzette Bello RN 05/27/2023 1:33 PM Signed I spoke with Edith and we talked at length. She will try speaking to her PCP about a work release as Dr. Sanchez, her surgeon, has retired. Lizzette Adams RN Allergies As of Date: 05/27/2023 (No Known Allergies) Date Reviewed: 04/17/2023 Reviewed by: Pari Franco MA - Fully Assessed Reason for Visit: Question [9948] Prescriptions as of 05/27/2023 - etodolac (LODINE-XL) [...] by LIZZETTE ADAMS RN on 05/27/23 Normal [facility] CNCOon 04-17-2023 CNCO Letter Text Normal [facility] CNOVon 04-17-2023 CNOV Office Visit (ORAVON ) EDITH WELLS ([id number]) 1995 F Date Time Provider Department 04/17/23 [...] Order(s):CONSULT TO PHYSICAL THERAPY [9032] Order #: [id number]: 1 FUTURE Prescriptions as of 04/18/2023 - [...] Encounter Status:Closed by TESSA SANCHEZ on 04/18/23 [facility] CNOVon 03-13-2023 CNOV Office Visit (ORAVON ) EDITH WELLS ([id number]) 1995 F Date Time Provider Department 03/13/23 [...] and is of normal mood and affect. [facility] 07/02/2022 Gait Cycle: Normal Yes, Limp: [...] records. This note was partially generated using [email or web address] voice recognition system, and there may be [...] Encounter Status:Closed by TESSA SANCHEZ on 03/13/23 [facility] 02-28-2023 [facility] Telephone (ORAVON) EDITH WELLS ([id number]) 1995 F Date Time Provider Department 02/28/23 TESSA SANCHEZ During your visit today, we recorded the following information about you: Margy Contreras Pss 02/28/2023 4:09 PM Signed Patient wants to get physical therapy at [facility] in [place]. Has been approved by [facility] and she can now schedule. Asking for recent therapy order from Dr Sanchez be faxed to [facility] in [place] at [phone]. Lizzette Adams RN 03/01/2023 10:22 AM Signed Faxed today at 10:20am. Lizzette Adams RN Allergies As of Date: 02/28/2023 (No Known Allergies) Date Reviewed: 01/02/2023 Reviewed by: Theresa Frederick, MA - Fully Assessed Reason for Visit: Electronic Communication [890] Cmt: PT order faxed today Prescriptions as [...] Status:Closed by LIZZETTE ADAMS RN on 03/01/23 [facility] 01-10-2023 YAN Telephone (ADRIANA) EDITH WELLS ([id number]) 1995 F Date Time Provider Department 01/10/23 [...] back to the office to update CALL [phone] Autumn Clayton 01/10/2023 12:07 PM Signed Edith [...] calling: self Call patient at: at home [phone] (home) [phone] (cell) Was an appointment scheduled: No Closing statement: Results or non-symptom based questions: Thank you for calling [facility], your call will be returned within the next business day. Lizzette Adams RN 01/11/2023 12:04 PM Signed Patient's note faxed today as requested Lizzette Noguera 02/08/2023 4:15 PM Signed Patient calling in about papers she received in the mail. She does not know what they are or what she needs to do with them. Please call her at [phone]. Lizzette Adams RN 02/11/2023 10:34 AM Signed [...] Reason for Visit: Return To Work Letter [0369] Prescriptions as of 02/11/2023 - etodolac (LODINE-XL) [...] Status:Closed by LIZZETTE ADAMS RN on 01/11/23 [facility] Suresh 01-02-2023 CNOV Office Visit (ADRIANA ) EDITH WELLS ([id number]) 1995 F Date Time Provider Department 01/02/23 [...] records. This note was partially generated using [employer] voice recognition system, and there may be [...] Past Histories independently gathered by the clinical support assistant and the remaining scribed note accurately describes my personal service to the patient. Tessa Sanchez M.D. 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 - cyclobenzaprine (FLEXERIL) 5 (more content not included)... Normal [facility] XR ANKLE 3V AP/LAT/OBL RTon [...] malalignment is identified. Joint spaces are maintained. Camera Person: PSCB Transcribe Date/Time: Jan 02 2023 4:17P Dictated by : RC CIFUENTES MD This examination was interpreted and the report reviewed and electronically signed by: RC CIFUENTES MD on Jan 02 2023 4:18PM EST [id number] Normal [facility] XR ANKLE GENERAL 3V AP/LAT/O BL RIGHTon 01-02-2023 [facility] CNCOon 12-21-2022 CNCO Letter Text Normal [facility] CNPNon 12-21-2022 CNPN Telephone (ORAVON) EDITH WELLS ([id number]) 1995 F Date Time Provider Department 12/21/22 [...] Encounter Status:Closed by VINAY CORONA on 12/21/22 [facility] Shayy 12-19-2022 YAN Telephone (ORAVON) EDITH WELLS ([id number]) 1995 F Date Time Provider Department 12/19/22 [...] NT to get symptom details. Autumn Clayton PSS Patient Operations Support Team (POST) Please [...] that prevented her form having PT. CALL [phone] Vinay Corona RN 12/21/2022 5:35 PM Signed This RN called and spoke with patient. Letter sent via Nadanu she report she received it. Also discussed leaving printed office notes up at front desk person file for strip picker. She was grateful for the call. [...] Encounter Status:Closed by VINAY CORONA on 12/21/22 [facility] CNOVon 11-14-2022 CNOV Office Visit (ORAVON ) PRISCILLAEDITH Woody ([id number]) 1995 F Date Time Provider Department 11/14/22 [...] Status:Closed by TESSA SANCHEZ on 11/14/22 Normal [facility] EBV EARLY ANTIGEN (IgG)on EBV Early Antigen Ab, IgG <9.0 Normal 0.0-8.9 [facility] Comment on above: Result Comment: Nega tive < 9.0 Equivocal 9.0 - 10.9 Positive >10.9 Performed By: #### E BVEARL #### [facility] [address] [place] [address] Dr. Judah Phipps LU-POSADAS VIRUS (EBV) AB PROFILEon 11-14-2022 EBV Ab VCA, IgG 370.0 U/mL Critically high 0.0-17.9 [facility] Comment on above: Result Comment: Nega tive <18.0 Equivocal 18.0 - 21.9 Positive >21.9 Performed By: #### E BVPROF #### [facility] [address] [place] [address] Dr. Judah Phipps EBV Ab VCA, IgM <36.0 Normal 0.0-35.9 [facility] Comment on above: Result Comment: Nega tive <36.0 Equivocal 36.0 - 43.9 Positive >43.9 Performed By: #### E BVPROF #### [facility] [address] [place] [address] Dr. Judah Phipps EBV Nuclear Antigen Ab, IgG 224.0 U/mL Critically high 0.0-17.9 [facility] Comment on above: Result Comment: Nega tive <18.0 Equivocal 18.0 - 21.9 Positive >21.9 Performed By: #### E BVPROF #### [facility] [address] [employer] [place], [place] [address] Dr. Judah Phipps Interpretation: Comment Normal [facility] Comment on above: Result Comment: EBV [...] EBNA. Performed By: #### E BVPROF #### [facility] [address] [place] [address] [place], [place] [address] Dr. Judah Phipps XR ANKLE 3V AP/LAT/OBL [...] dislocation. IMPRESSION: Expected postoperative findings as described. Camera Person: ANYA Transcribe Date/Time: Nov 14 2022 6:35P Dictated by : TINA VEGA MD This examination was interpreted and the report reviewed and electronically signed by: TINA VEGA MD on Nov 15 2022 6:27AM EST [id number] Normal [facility] XR ANKLE GENERAL 3V AP/LAT/O BL RIGHTon 11-14-2022 [facility] AMYLASEon 11-13-2022 Amylase [Catalytic activity/Vol] 42 U/L Normal 25-115 [facility] Comment on above: Performed By: #### L IPA, CMP, YSEDA, PREGQNT #### [facility] [address] [place] [address] Dr. Judah Phipps CBC AUTO DIFFon 11-13-2022 BASO # 0.0 103/ul Normal 0.0-0.1 [facility] Comment on above: Performed By: #### L IPA, CMP, SYEDA, PREGQNT #### [facility] [address] [place] [address] Dr. Judah Phipps Basophils/100 WBC (Bld) 0.3 % Normal 0.2-2.0 [facility] Comment on above: Performed By: #### L IPA, CMP, SYEDA, PREGQNT #### [facility] [address] [address] [address] Judah Phipps EO # 0.5 103/ul Normal 0.0-0.7 [facility] Comment on above: Performed By: #### L IPA, CMP, SYEDA, PREGQNT #### [facility] [address] [address] [address] Judah Phipps Eosinophils/100 WBC (Bld) 4.0 % Normal 0.9-7.0 [facility] Comment on above: Performed By: #### L IPA, CMP, SYEDA, PREGQNT #### [facility] [address] [place] [address] Dr. Judah Phipps Erythrocyte distribution width (RBC) [Ratio] 13.2 % Normal 11.0-15.0 [facility] Comment on above: Performed By: #### L IPA, CMP, SYEDA, PREGQNT #### [facility] [address] [place] [address] Dr. Judah Phipps Hematocrit (Bld) [Volume fraction] 37.2 % Normal 36.0-48.0 [facility] Comment on above: Performed By: #### L IPA, CMP, SYEDA, PREGQNT #### [facility] [address] [place] [address] Dr. Judah Phipps Hemoglobin (Bld) [Mass/Vol] 12.5 g/dL Normal 12.0-16.0 [facility] Comment on above: Performed By: #### L IPA, CMP, SYEDA, PREGQNT #### [facility] [address] [place] [address] Dr. Judah Phipps IG # 0.04 10e3/ul Critically high 0.00-0.03 [facility] Comment on above: Performed By: #### L IPA, CMP, SYEDA, PREGQNT #### [facility] [address] [place] [address] Dr. Judah Phipps IG % 0.3 % Normal 0.0-0.5 [facility] Comment on above: Performed By: #### L IPA, CMP, SYEDA, PREGQNT #### [facility] [address] [place] [address] Dr. Judah Phipps LYMPH # 4.8 103/ul Critically high 1.2-3.8 [facility] Comment on above: Performed By: #### L IPA, CMP, SYEDA, PREGQNT #### [facility] [address] [place] [address] Dr. Judah Phipps Lymphocytes/100 WBC (Bld) 39.9 % Normal 20.5-60.0 [facility] Comment on above: Performed By: #### L IPA, CMP, SYEDA, PREGQNT #### [facility] [address] [place] [address] Dr. Judah Phipps MANUAL DIFF REQ NO Normal [facility] Comment on above: Performed By: #### L IPA, CMP, SYEDA, PREGQNT #### [facility] [address] [place] [address] Dr. Judah Phipps MCH (RBC) [Entitic mass] 30.5 pg Normal 26.7-34.0 [facility] Comment on above: Performed By: #### L IPA, CMP, SYEDA, PREGQNT #### [facility] [address] [place] [address] Dr. Judah Phipps MCHC (RBC) [Mass/Vol] 33.6 g/dL Normal 29.9-35.2 [facility] Comment on above: Performed By: #### L IPA, CMP, SYEDA, PREGQNT #### [facility] [address] [place] [address] Dr. Judah Phipps MCV (RBC) [Entitic vol] 90.7 fL Normal 81.0-99.0 [facility] Comment on above: Performed By: #### L IPA, CMP, SYEDA, PREGQNT #### [facility] [address] [place] [address] Dr. Judah Phipps MONO # 0.7 103/ul Normal 0.3-0.8 [facility] Comment on above: Performed By: #### L IPA, CMP, SYEDA, PREGQNT #### [facility] [address] [place] [address] Dr. Judah Phipps Monocytes/100 WBC (Bld) 6.1 % Normal 1.7-12.0 [facility] Comment on above: Performed By: #### L IPA, CMP, SYEDA, PREGQNT #### [facility] [address] [place] [address] Dr. Judah Phipps NEUT # 5.9 103/ul Normal 1.4-6.5 [facility] Comment on above: Performed By: #### L IPA, CMP, SYEDA, PREGQNT #### [facility] [address] [place] [address] Dr. Judah Phipps Neutrophils/100 WBC (Bld) 49.4 % Normal 43.0-75.0 [facility] Comment on above: Performed By: #### L IPA, CMP, SYEDA, PREGQNT #### [facility] [address] [place] [address] Dr. Judah Phipps Platelet mean volume (Bld) [Entitic vol] 9.2 fL Critically low 9.5-13.5 [facility] Comment on above: Performed By: #### L IPA, CMP, SYEDA, PREGQNT #### [facility] [address] [place] [address] Dr. Judah Phipps PLT 408 103/ul Normal 150-450 [facility] Comment on above: Performed By: #### L IPA, CMP, SYEDA, PREGQNT #### [facility] [address] [address] [address] Judah Phipps RBC 4.10 106/ul Critically low 4.20-5.40 [facility] Comment on above: Performed By: #### L IPA, CMP, SYEDA, PREGQNT #### [facility] [address] [address] [address] Judah Phipps WBC 12.0 103/ul Critically high 4.0-11.0 [facility] Comment on above: Performed By: #### L IPA, CMP, SYEDA, PREGQNT #### [facility] [address] [place] [address] Dr. Judah Phipps LIPASEon 11-13-2022 Lipase [Catalytic activity/Vol] 161.0 U/L Normal 73.0-393.0 [facility] Comment on above: Performed By: #### L IPA, CMP, SYEDA, PREGQNT #### [facility] [address] [address] [address] Judah Phipps PREG QUANT HCGon 11-13-2022 HCG QUANT <1 Normal [facility] Comment on above: Performed By: #### L IPA, CMP, SYEDA, PREGQNT #### [facility] [address] [place] [address] Dr. Judah Phipps HCG RANGE SEE BELOW Normal [facility] Comment on above: Result Comment: 5-50 0.2-1 WEEK 50-500 1-2 WEEKS 100-5,000 2-3 WEEKS 500-10,000 3-4 WEEKS 1,000-50,000 4-5 WEEKS 10,000-100,000 5-6 WEEKS 15,000-200,000 6-8 WEEKS 10,000-100,000 2-3 MONTHS Performed By: #### L IPA, CMP, SYEDA, PREGQNT #### [facility] [address] [address] [address] Judah Phipps PROF 14(COMP METB)on 01-17-2 023 Albumin [Mass/Vol] 3.6 g/dL Normal 3.4-5.0 [facility] Comment on above: Performed By: #### L IPA, CMP, SYEDA, PREGQNT #### [facility] [address] [address] [address] Judah Phipps Albumin/Globulin [Mass ratio] 1.1 {ratio} Normal [facility] Comment on above: Performed By: #### L IPA, CMP, SYEDA, PREGQNT #### [facility] [address] [address] [address] Judah Phipps ALP [Catalytic activity/Vol] 64 U/L Normal 46-116 [facility] Comment on above: Performed By: #### L IPA, CMP, SYEDA, PREGQNT #### [facility] [address] [place] [address] Dr. Judah Phipps ALT [Catalytic activity/Vol] 9 U/L Critically low 14-59 [facility] Comment on above: Performed By: #### L IPA, CMP, SYEDA, PREGQNT #### [facility] [address] [address] [address] Judah Phipps Anion gap [Moles/Vol] 11.3 mmol/L Normal [facility] Comment on above: Performed By: #### L IPA, CMP, SYEDA, PREGQNT #### [facility] [address] [address] [address] Judah Phipps AST [Catalytic activity/Vol] 10 U/L Critically low 15-37 [facility] Comment on above: Performed By: #### L IPA, CMP, SYEDA, PREGQNT #### [facility] [address] [address] [address] Judah Phipps Bilirubin [Mass/Vol] 0.2 mg/dL Normal 0.2-1.0 [facility] Comment on above: Performed By: #### L IPA, CMP, SYEDA, PREGQNT #### [facility] [address] [place] [address] Dr. Judah Phipps Calcium [Mass/Vol] 8.9 mg/dL Normal 8.5-10.1 [facility] Comment on above: Performed By: #### L IPA, CMP, SYEDA, PREGQNT #### [facility] [address] [address] [address] Judah Phipps Chloride [Moles/Vol] 102 mmol/L Normal 98-107 [facility] Comment on above: Performed By: #### L IPA, CMP, SYEDA, PREGQNT #### [facility] [address] [address] [address] Judah Phipps CO2 [Moles/Vol] 28.5 mmol/L Normal 21.0-32.0 [facility] Comment on above: Performed By: #### L IPA, CMP, SYEDA, PREGQNT #### [facility] [address] [place] [address] Dr. Judah Phipps Creatinine [Mass/Vol] 0.65 mg/dL Normal 0.55-1.02 [facility] Comment on above: Performed By: #### L IPA, CMP, SYEDA, PREGQNT #### [facility] [address] [place] [address] Dr. Judah Phipps EGFR-AF KYRGYZ >60 Normal >=60 [facility] Comment on above: Performed By: #### L IPA, CMP, SYEDA, PREGQNT #### [facility] [address] [place] [address] Dr. Judah Phipps EGFR-NON AF KYRGYZ >60 Normal >=60 [facility] Comment on above: Performed By: #### L IPA, CMP, SYEDA, PREGQNT #### [facility] [address] [address] [address] Judah Phipps Globulin (S) [Mass/Vol] 3.4 g/dL Normal [facility] Comment on above: Performed By: #### L IPA, CMP, SYEDA, PREGQNT #### [facility] [address] [place] [address] Dr. Judah Phipps Glucose [Mass/Vol] 100 mg/dL Normal 74-106 [facility] Comment on above: Performed By: #### L IPA, CMP, SYEDA, PREGQNT #### [facility] [address] [address] [address] Judah Phipps Potassium [Moles/Vol] 3.8 mmol/L Normal 3.5-5.1 [facility] Comment on above: Performed By: #### L IPA, CMP, SYEDA, PREGQNT #### [facility] [address] [place] [address] Dr. Judah Phipps Protein [Mass/Vol] 7.0 g/dL Normal 6.4-8.2 [facility] Comment on above: Performed By: #### L IPA, CMP, SYEDA, PREGQNT #### [facility] [address] [place] [address] Dr. Judah Phipps Sodium [Moles/Vol] 138 mmol/L Normal 136-145 [facility] Comment on above: Performed By: #### L IPA, CMP, SYEDA, PREGQNT #### [facility] [address] [place] [address] Dr. Judah Phipps Urea nitrogen [Mass/Vol] 15.0 mg/dL Normal 7.0-18.0 [facility] Comment on above: Performed By: #### L IPA, CMP, SYEDA, PREGQNT #### [facility] [address] [place] [address] Dr. Judah Phipps Urea nitrogen/Creatinine [Mass ratio] 23.1 mg/mg Normal [facility] Comment on above: Performed By: #### L IPA, CMP, SYEDA, PREGQNT #### [facility] [address] [place] [address] Dr. Judah Phipps RESPIRATORY PANEL PLUSon Adenovirus Not detected Normal NOT DETECTED [facility] Comment on above: Performed By: #### R SPLUS #### [facility] [address] [place] [address] Dr. Judah Phipps B. Parapertusis Not detected Normal NOT DETECTED [facility] Comment on above: Performed By: #### R SPLUS #### [facility] [address] [place] [address] Dr. Judah Dick. Pertussis Not detected Normal NOT DETECTED [facility] Comment on above: Performed By: #### R SPLUS #### [facility] [address] [place] [address] Dr. Judah Phipps Chlamydia Pneumoniae Not detected Normal NOT DETECTED [facility] Comment on above: Performed By: #### R SPLUS #### [facility] [address] [place] [address] Dr. Judah Phipps Coronavirus 229E Not detected Normal NOT DETECTED [facility] Comment on above: Performed By: #### R SPLUS #### [facility] [address] [place] [address] Dr. Judah Phipps Coronavirus HKU1 Not detected Normal NOT DETECTED [facility] Comment on above: Performed By: #### R SPLUS #### [facility] [address] [place] [address] Dr. Judah Phipps Coronavirus NL63 Not detected Normal NOT DETECTED [facility] Comment on above: Performed By: #### R SPLUS #### [facility] [address] [place] [address] Dr. Judah Phipps Coronavirus OC43 Not detected Normal NOT DETECTED [facility] Comment on above: Performed By: #### R SPLUS #### [facility] [address] [place] [address] Dr. Judah Phipps Influenza A H1 2009 Not detected Normal NOT DETECTED [facility] Comment on above: Performed By: #### R SPLUS #### [facility] [address] [place] [address] Dr. Judah Phipps Influenza A H3 Not detected Normal NOT DETECTED [facility] Comment on above: Performed By: #### R SPLUS #### [facility] [address] [place] [address] Dr. Judah Phipps Influenza B Not detected Normal NOT DETECTED [facility] Comment on above: Performed By: #### R SPLUS #### [facility] [address] [place] [address] Dr. Judah Phipps Metapneumovirus Not detected Normal NOT DETECTED [facility] Comment on above: Performed By: #### R SPLUS #### [facility] [address] [place] [address] Dr. Judah Phipps Mycoplas. Pneumoniae Not detected Normal NOT DETECTED [facility] Comment on above: Performed By: #### R SPLUS #### [facility] [address] [place] [address] Dr. Judah Phipps Parainfluenza 1 Not detected Normal NOT DETECTED [facility] Comment on above: Performed By: #### R SPLUS #### [facility] [address] [place] [address] Dr. Judah Phipps Parainfluenza 2 Not detected Normal NOT DETECTED [facility] Comment on above: Performed By: #### R SPLUS #### [facility] [address] [place] [address] Dr. Judah Phipps Parainfluenza 3 Not detected Normal NOT DETECTED [facility] Comment on above: Performed By: #### R SPLUS #### [facility] [address] [place] [address] Dr. Judah Phipps Parainfluenza 4 Not detected Normal NOT DETECTED [facility] Comment on above: Performed By: #### R SPLUS #### [facility] [address] [place] [address] Dr. Judah Phipps Rhino/Enterovirus Not detected Normal NOT DETECTED [facility] Comment on above: Performed By: #### R SPLUS #### [facility] [address] [place] [address] Dr. Judah Phipps RP2 Header 1 RESPIRATORY PANEL: VIRUSES Normal [facility] Comment on above: Performed By: #### R SPLUS #### [facility] [address] [place] [address] Dr. Judah Phipps RP2 Header 2 RESPIRATORY PANEL: BACTERIA Normal [facility] Comment on above: Performed By: #### R SPLUS #### [facility] [address] [place] [address] Dr. Judah Phipps RSV Not detected Normal NOT DETECTED [facility] Comment on above: Performed By: #### R SPLUS #### [facility] [address] [place] [address] Dr. Judah Phipps SARS-CoV-2 (COVID-19) RNA HAROLDO+probe Ql (Unsp spec) Not detected Normal NOT DETECTED [facility] Comment on above: Performed By: #### R SPLUS #### [facility] [address] [place] [address] Dr. Judah Phipps CNOVon 10-10-2022 CNOV Office Visit (ORAVON ) EDITH WELLS ([id number]) 1995 F Date Time Provider Department 10/10/22 [...] Encounter Status:Closed by TESSA SANCHEZ [facility] Tele[facility] (JALILAVON) EDITH WELLS ([id number]) 1995 F Date Time Provider Department 09/26/22 TESSA SANCHEZ During your visit today, we recorded the following information about you: Rita Nitin [facility] 09/26/2022 11:18 AM Signed Patient requesting to speak with provider or staff in regards to right leg pain. She is having pain from her toes up to her knee. Her right ankle surgery was 08/28/22 and questions if pain is normal? Patient is to start therapy today at 6 pm. Patient requesting a return call through #[phone] or #[phone]. The second number is her boyfriends line, Elias. Patient gives okay to leave message with Elias if needed. Please advise. Lizzette Adams RN 09/28/2022 2:23 PM Signed I spoke with Kathie on 09/26/22. Lizzette Adams RN Allergies As of Date: 09/26/2022 (No Known Allergies) Date Reviewed: 09/12/2022 Reviewed by: Lizzette Adams RN - Fully Assessed Reason for Visit: Patient Question [3639] Prescriptions as of 09/28/2022 - predniSONE (DELTASONE) [...] Status:Closed by LIZZETTE ADAMS RN on 09/28/22 [facility] CNOVon 09-12-2022 CNOV Office Visit (ORAVON ) PRISCILLAEDITH ([id number]) 1995 F Date Time Provider Department 09/12/22 [...] right talus [M93.271] Order(s):CONSULT TO PHYSICAL THERAPY [9023] Order #: [id number]: 1 FUTURE Prescriptions as of 09/12/2022 - [...] by TESSA SANCHEZ on 09/12/22 [facility] CNOV Office Visit (ORAVON ) EDTIH WELLS ([id number]) 1995 F Date Time Provider Department 09/12/22 [...] in Care of boot.. Alfred Griffith Beeper: [phone] Allergies As of Date: 09/12/2022 (No Known [...] Encounter Status:Closed by ALFRED KEARNS on 09/12/22 [facility] Shayy 09-03-2022 [facility] Telephone (JALILAVON) EDITH WELLS ([id number]) 1995 F Date Time Provider Department 09/03/22 [...] Status:Closed by AMPARO GUILLORY RN on 09/14/22 [facility]20[facility] ED[facility] WELLS ([id number]) 1995 F Date Time Provider Department 09/02/22 [...] Fully Assessed Reason for Visit: Patient Question [7277] Prescriptions as of 09/02/2022 - acetaminophen (TYLENOL) [...] Encounter Status:Closed by EYAD SHELBY on 09/02/22 Normal [facility] CNNURSEon 08-29-2022 CNNURSE Nurse Visit (ORAVGOLDIE) EDITH WELLS ([id number]) 1995 F Date Time Provider Department 08/29/22 3:45 PM NURSE ORTH [facility] During your visit today, we [...] Status:Closed by LIZZETTE ADAMS RN on 09/03/22 [facility] CNOVon 08-29-2022 CNOV Office Visit (ORAVON ) EDITH WELLS ([id number]) 1995 F Date Time Provider Department 08/29/22 3:00 PM CAST TECH AGNES WRIGHT During your visit today, we recorded the following information about you: Alfredconcha Campo Cast 08/29/2022 3:44 PM Signed PT ASSESSMENT - CASTING ROOM Edith presents for Application of cast. Applied short cast: to Right leg non-weight bearing Patient has been instructed in Care of cast.. Alfred Campo Cast Beeper: [phone] Allergies As of Date: 08/29/2022 (No Known Allergies) Date Reviewed: 08/28/2022 Reviewed by: Milana Stanford, SUE - Fully Assessed Primary Visit Diagnosis:Osteochondri tis [...] Status:Closed by ALFRED KEARNS on 08/29/22 Normal [facility] ANES POSTPROC EVALon 022 ANES POSTPROC EVAL HNO ID: [id number] Author: Mike Alcantar MD Service: Anesthesiology Author Type: Anesthesiologist Type: Anesthesia Postprocedure Evaluation Filed: 08/28/2022 1:05 PM Note Text: POST ANESTHESIA EVALUATION NOTE : 1995 Procedure Summary Date: 08/28/22 Room / Location: [address] Anesthesia Start: 1029 Anesthesia Stop: 1149 [...] August 28, 2022 TIME: 1:04 PM CSN: [id number] [facility] ANES PRE-OPon 08-28-2022 ANES PRE-OP HNO ID: [id number] Author: Mike Alcantar MD Service: Anesthesiology Author Type: Anesthesiologist Type: Anesthesia Preprocedure Evaluation Filed: 08/28/2022 9:33 AM Note Text: ANESTHESIOLOGY DAY OF SURGERY NOTE : 1995 Procedure Information Date/Time: 08/28/22 1000 Procedure: ARTHROSCOPY ANKLE EXCISION 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) Location: [address] / [facility] Surgeons: Tessa Sanchez MD Estimated [...] August 28, 2022 TIME: 9:32 AM CSN: [id number] [facility] OPERATIVE NOon 08-28-2022 OPERATIVE NO HNO ID: [id number] Author: Tessa Sanchez MD Service: Orthopaedic Surgery Author Type: Physician Type: Operative Report Filed: 08/28/2022 1:09 PM Note Text: OPERATIVE REPORT LOG ID: [id number] Surgery Date: 08/28/2022 Incision/Procedure Start Time: 11:01 AM Incision Close/Procedure End Time: 11:32 AM Procedure Performed: Procedure(s) (LRB): ARTHROSCOPY ANKLE EXCISION OSTEOCHONDRAL DEFECT MEDIAL TALUS Microfracture of talus Synovectomy Surgeon monitored fluoroscopy Surgeon(s)/Procedurali st(s) and [employer] Field Agent(s): Surgeon(s) and Role: * Tessa Sanchez MD - Primary Physician [employer] Field Agent: Mercedes Gale PA-C, was essential in patient [...] August 28, 2022 TIME: 1:04 PM PHONE: [phone] Normal [facility] CBC panel Auto (Bld)on 08-24 Erythrocyte distribution width (RBC) [Ratio] 13.3 % Normal 11.5-15.0 [facility] Comment on above: Order Comment: Speci joy Type: BLOOD SPECIMENOrdering Facility: [facility] Address: [address] [place] [address] Performed By: #### 5 8410-2 ####[facility] LABIA [id number] [place] [address] Hematocrit (Bld) [Volume fraction] 37.6 % Normal 36.0-46.0 [facility] Comment on above: Order Comment: Getachew hamilton Type: BLOOD SPECIMENOrdering Facility: [facility] Address: [address] [place] [address] Performed By: #### 5 8410-2 ####[facility] LABCLIA [id number] [place] [address] Hemoglobin (Bld) [Mass/Vol] 12.4 g/dL Normal 11.5-15.5 [facility] Comment on above: Order Comment: Wendyi men Type: BLOOD SPECIMENOrdering Facility: [facility] Address: [address] [place] [address] Performed By: #### 5 8410-2 ####[facility] LABCLIA [id number] [place] [address] MCH (RBC) [Entitic mass] 30.4 pg Normal 26.0-34.0 [facility] Comment on above: Order Comment: Speci men Type: BLOOD SPECIMENOrdering Facility: [facility] Address: [address] [place] [address] Performed By: #### 5 8410-2 ####[facility] LABCLIA [id number] [place] [address] MCHC (RBC) [Mass/Vol] 33.0 g/dL Normal 30.5-36.0 [facility] Comment on above: Order Comment: Speci men Type: BLOOD SPECIMENOrdering Facility: [facility] Address: [address] [place] [address] Performed By: #### 5 8410-2 ####[facility] LABIA [id number] [place] [address] MCV (RBC) [Entitic vol] 92.2 fL Normal 80.0-100.0 [facility] Comment on above: Order Comment: Speci men Type: BLOOD SPECIMENOrdering Facility: [facility] Address: [address] [place] [address] Performed By: #### 5 8410-2 ####[facility] LABCLIA [id number] [place] [address] Nucleated RBC (Bld) [#/Vol] 10*3/uL Normal <0.01 [facility] Comment on above: Order Comment: Speci men Type: BLOOD SPECIMENOrdering Facility: [facility] Address: [address] [place] [address] Performed By: #### 5 8410-2 ####[facility] LABIA [id number] [place] [address] Platelet mean volume (Bld) [Entitic vol] 9.3 fL Normal 9.0-12.7 [facility] Comment on above: Order Comment: Speci men Type: BLOOD SPECIMENOrdering Facility: [facility] Address: [address] [place] [address] Performed By: #### 5 8410-2 ####[facility] LABCLIA [id number] [place] [address] Platelets (Bld) [#/Vol] 386 10*3/uL Normal 150-400 [facility] Comment on above: Order Comment: Speci men Type: BLOOD SPECIMENOrdering Facility: [facility] Address: [address] [place] [address] Performed By: #### 5 8410-2 ####[facility] LABIA [id number] [place] [address] RBC (Bld) [#/Vol] 4.08 10*6/uL Normal 3.90-5.20 [facility] Comment on above: Order Comment: Speci men Type: BLOOD SPECIMENOrdering Facility: [facility] Address: [address] [place] [address] Performed By: #### 5 8410-2 ####[facility] LABIA [id number] [place] [address] WBC (Bld) [#/Vol] 8.69 10*3/uL Normal 3.70-11.00 [facility] Comment on above: Order Comment: Speci men Type: BLOOD SPECIMENOrdering Facility: [facility] Address: [address] [place] [address] Performed By: #### 5 8410-2 ####[facility] LABIA [id number] [place] [address] Erythrocyte distribution width (RBC) [Ratio] 13.3 % 11.5 - 15.0 % [facility] Hematocrit (Bld) [Volume fraction] 37.6 % 36.0 - 46.0 % [facility] Hemoglobin (Bld) [Mass/Vol] 12.4 g/dL 11.5 - 15.5 g/dL [facility] MCH (RBC) [Entitic mass] 30.4 pg 26.0 - 34.0 pg [facility] MCHC (RBC) [Mass/Vol] 33.0 g/dL 30.5 - 36.0 g/dL [facility] MCV (RBC) [Entitic vol] 92.2 fL 80.0 - 100.0 fL [facility] Nucleated RBC (Bld) [#/Vol] <0.01 k/uL [facility] Platelet mean volume (Bld) [Entitic vol] 9.3 fL 9.0 - 12.7 fL [facility] Platelets (Bld) [#/Vol] 386 10*3/uL 150 - 400 k/uL [facility] RBC (Bld) [#/Vol] 4.08 10*6/uL 3.90 - 5.2 0 m/uL [facility] WBC (Bld) [#/Vol] 8.69 10*3/uL 3.70 - 11. 00 k/uL [facility] Basic metabolic 2000 panelon 08-15-2022 Anion gap [Moles/Vol] 8 mmol/L Low 07-15 [facility] Comment on above: Order Comment: Speci men Type: BLOOD SPECIMENOrdering Facility: [facility] Address: [address] [place] [address] Performed By: #### 2 4321-2 ####[facility] LABCLIA [id number] [place] [address] Calcium [Mass/Vol] 9.4 mg/dL Normal 8.5-10.2 [facility] Comment on above: Order Comment: Speci men Type: BLOOD SPECIMENOrdering Facility: [facility] Address: [address] [address] Performed By: #### 2 4321-2 ####[facility] LABCLIA [id number] [place] [address] Chloride [Moles/Vol] 104 mmol/L Normal 97-105 [facility] Comment on above: Order Comment: Speci men Type: BLOOD SPECIMENOrdering Facility: [facility] Address: [address] [address] Performed By: #### 2 4321-2 ####[facility] LABCLIA [id number] [place] [address] CO2 [Moles/Vol] 25 mmol/L Normal 22-30 [facility] Comment on above: Order Comment: Speci men Type: BLOOD SPECIMENOrdering Facility: [facility] Address: [address] [place] [address] Performed By: #### 2 4321-2 ####[facility] LABCLIA [id number] [place] [address] Creatinine [Mass/Vol] 0.60 mg/dL Normal 0.58-0.96 [facility] Comment on above: Order Comment: Speci men Type: BLOOD SPECIMENOrdering Facility: [facility] Address: [address] [place] [address] Performed By: #### 2 4321-2 ####[facility] LABCLIA [id number] [place] [address] ESTIMATED GLOMERULAR FILTRATION RATE 126 mL/min/1.73m??? Normal >=60 [facility] Comment on above: Order Comment: Speci men Type: BLOOD SPECIMENOrdering Facility: [facility] Address: [address] [place] [address] Result Comment: Brandy mated Glomerular Filtration Rate [...] actual GFR. Performed By: #### 2 4321-2 ####[facility] LABCLIA [id number] [place] [address] Glucose [Mass/Vol] 109 mg/dL High 74-99 [facility] Comment on above: Order Comment: Speci men Type: BLOOD SPECIMENOrdering Facility: [facility] Address: [address] [place] [address] Result Comment: The [place] Diabetes Association (ADA) provides guidance for cutoff [...] Standards of Medical Care in Diabetes 2016, [place] [employer]. Diabetes Care. 2016.39(Suppl 1). Performed By: #### 2 4321-2 ####[facility] LABCLIA [id number] [place] [address] Potassium [Moles/Vol] 3.8 mmol/L Normal 3.7-5.1 [facility] Comment on above: Order Comment: Speci men Type: BLOOD SPECIMENOrdering Facility: [facility] Address: [address] [place] [address] Performed By: #### 2 4321-2 ####[facility] LABCLIA [id number] [place] [address] Sodium [Moles/Vol] 137 mmol/L Normal 136-144 [facility] Comment on above: Order Comment: Speci men Type: BLOOD SPECIMENOrdering Facility: [facility] Address: [address] [address] Performed By: #### 2 4321-2 ####[facility] LABCLIA [id number] [place] [address] Urea nitrogen [Mass/Vol] 20 mg/dL Normal 7-21 [facility] Comment on above: Order Comment: Speci men Type: BLOOD SPECIMENOrdering Facility: [facility] Address: [address] [address] Performed By: #### 2 4321-2 ####[facility] LABCLIA [id number] [place] [address] CBC panel Auto (Bld)on 08-15 Erythrocyte distribution width (RBC) [Ratio] 13.5 % Normal 11.5-15.0 [facility] Comment on above: Order Comment: Speci men Type: BLOOD SPECIMENOrdering Facility: [facility] Address: [address] [place] [address] Performed By: #### 5 8410-2 ####[facility] LABCLIA [id number] [place] [address] Hematocrit (Bld) [Volume fraction] 39.9 % Normal 36.0-46.0 [facility] Comment on above: Order Comment: Speci men Type: BLOOD SPECIMENOrdering Facility: [facility] Address: [address] [place] [address] Performed By: #### 5 8410-2 ####[facility] LABCLIA [id number] [place] [address] Hemoglobin (Bld) [Mass/Vol] 13.4 g/dL Normal 11.5-15.5 [facility] Comment on above: Order Comment: Speci men Type: BLOOD SPECIMENOrdering Facility: [facility] Address: [address] [place] [address] Performed By: #### 5 8410-2 ####[facility] LABCLIA [id number] [place] [address] MCH (RBC) [Entitic mass] 30.7 pg Normal 26.0-34.0 [facility] Comment on above: Order Comment: Speci men Type: BLOOD SPECIMENOrdering Facility: [facility] Address: [address] [place] [address] Performed By: #### 5 8410-2 ####[facility] LABCLIA [id number] [place] [address] MCHC (RBC) [Mass/Vol] 33.6 g/dL Normal 30.5-36.0 [facility] Comment on above: Order Comment: Speci men Type: BLOOD SPECIMENOrdering Facility: [facility] Address: [address] [place], [place] [address] Performed By: #### 5 8410-2 ####[facility] LABCLIA [id number] [place] [address] MCV (RBC) [Entitic vol] 91.5 fL Normal 80.0-100.0 [facility] Comment on above: Order Comment: Speci men Type: BLOOD SPECIMENOrdering Facility: [facility] Address: [address] [place], [place] [address] Performed By: #### 5 8410-2 ####[facility] LABCLIA [id number] [place] [address] Nucleated RBC (Bld) [#/Vol] 10*3/uL Normal <0.01 [facility] Comment on above: Order Comment: Speci men Type: BLOOD SPECIMENOrdering Facility: [facility] Address: [address] [place], [place] [address] Performed By: #### 5 8410-2 ####[facility] LABIA [id number] [place] [address] Platelet mean volume (Bld) [Entitic vol] 9.2 fL Normal 9.0-12.7 [facility] Comment on above: Order Comment: Speci men Type: BLOOD SPECIMENOrdering Facility: [facility] Address: [address] [place], [place] [address] Performed By: #### 5 8410-2 ####[facility] LABIA [id number] [place] [address] Platelets (Bld) [#/Vol] 409 10*3/uL High 150-400 [facility] Comment on above: Order Comment: Speci men Type: BLOOD SPECIMENOrdering Facility: [facility] Address: [address] [place], [place] [address] Performed By: #### 5 8410-2 ####[facility] LABCLIA [id number] [place] [address] RBC (Bld) [#/Vol] 4.36 10*6/uL Normal 3.90-5.20 [facility] Comment on above: Order Comment: Speci men Type: BLOOD SPECIMENOrdering Facility: [facility] Address: [address] [place], [place] [address] Performed By: #### 5 8410-2 ####[facility] LABCLIA [id number] [place] [address] WBC (Bld) [#/Vol] 16.45 10*3/uL High 3.70-11.00 [facility] Comment on above: Order Comment: Speci men Type: BLOOD SPECIMENOrdering Facility: [facility] Address: [address] [place] [address] Performed By: #### 5 8410-2 ####[facility] LABCLIA [id number] [place] [address] Shayy 08-15-2022 YAN Telephone (BRENT) EDITH WELLS ([id number]) 1995 F Date Time Provider Department 08/15/22 TESSA SANCHEZ During your visit today, we recorded the following information about you: Kasi Mathur PA-C 08/15/2022 9:48 AM Signed Good morning Dr. 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 She had her pre-op labs [...] you for your time, Kasi Mathur PA-C [facility] Kasi Mathur PA-C 08/16/2022 8:38 AM [...] unspecified type [D72.829] Order(s):CBC [CB] Order #: [id number] FUTURE Prescriptions as of 08/24/2022 - predniSONE [...] Status:Closed by KASI MATHUR on 08/24/22 [facility] PHYSICALon 2 HISTORY PHYSICAL HNO ID: [id number] Author: Kasi Mathur PA-C Service: ? Author Type: Physician Fbi Field Agent Type: HANDP Filed: 08/24/2022 1:26 PM Note [...] Pack years: 2.64 Types: Cigarettes Quit date: 2020 Years since quittin.7 Smokeless tobacco: Never Vaping [...] fevers. 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 [...] or incontinence,, stones or chronic kidney disease DIRECTOR MEDICAL SCIENCE: Negative for abnormal vaginal bleeding, abnormal vaginal [...] normal respiratory (more content not included)... Normal [facility] CNCOon 2022 CNCO Letter Text Normal [facility] CNOVon 2022 CNOV Office Visit (ORAVON ) EDITH WELLS ([id number]) 1995 F Date Time Provider Department 08/08/22 [...] Scan The patient's pertinent medical history from [facility] has been reviewed. PFOMIS forms [...] anticipated outc (more content not included)... Normal [facility] XR LSPINE 2_3 VIEWSon 2021 [...] CHARBEL TAPIA Date: 2022-08-01 20:44 Normal [facility] Covid-19 PCR (CVDTB)on SARS-CoV-2 (COVID-19) RNA HAROLDO+probe Ql (Unsp spec) Not detected Normal NOT DETECTED [facility] Comment on above: Result Comment: When diagnostic [...] for this test is supported by the Manager Stars of Health and Human Service's declaration that [...] #### L IPA, CMP, SYEDA, PREGQNT #### [facility] [address] [place] [address] Dr. Judah Phipps GROUP A STREP CULTUREon S. pyogenes Ag Ql (Unsp spec) Culture Observations: NEGATIVE FOR GROUP A STREPTOCOCCUS. Normal [facility] Comment on above: Performed By: #### G RASTCX, SSCRN #### [facility] [address] [address] [address] Judah Phipps STREPT SCREENon 06-28-2022 STREP SCREEN A Negative Normal NEGATIVE [facility] Comment on above: Performed By: #### G RASTCX, SSCRN #### [facility] [address] [place] [address] Dr. Judah Phipps XR Ankle Complete Righton [...] by Kristi Olguin on 05/07/2022 1503 Normal [facility] XR Spine Lumbar 4+ Views*on 05-07-2022 XR [...] by Kristi Olguin on 05/07/2022 1453 Normal [facility] Vital Signs Date Time Vital Sign Value Performing Clinician Facility 05-08-2023 09:30-0400 Body height 163.19 cm Charbel Rodriguez Other [facility] Other 05-08-2023 09:30-0400 Body mass index (BMI) [Ratio] 46.15 kg/m2 Charbel Rodriguez Other [facility] Other 05-08-2023 09:30-0400 Body temperature 98.3 [degF] Charbel Rodriguez Other [facility] Other 05-08-2023 09:30-0400 Body weight 122.93 kg Charbel Rodriguez Other [facility] Other 05-08-2023 09:30-0400 Diastolic blood pressure 84 mm[Hg] Charbel Rodriguez Other [facility] Other 05-08-2023 09:30-0400 Respiratory rate 18 /min Charbel Rodriguez Other [facility] Other 05-08-2023 09:30-0400 SaO2% (BldA) [Mass fraction] 98 % Charbel Rodriguez Other [facility] Other 05-08-2023 09:30-0400 Systolic blood pressure 130 mm[Hg] Charbel Rodriguez Other [facility] Other 04-12-2023 10:50-0400 Body height 163.19 cm Charbel Rodriguez Other [facility] Other 04-12-2023 10:50-0400 Body mass index (BMI) [Ratio] 45.47 kg/m2 Charbel Rodriguez Other [facility] Other 04-12-2023 10:50-0400 Body temperature 98.8 [degF] Charbel Rodriguez Other [facility] Other 04-12-2023 10:50-0400 Body weight 121.11 kg Charbel Rodriguez Other [facility] Other 04-12-2023 10:50-0400 Diastolic blood pressure 84 mm[Hg] Charbel Rodriguez Other [facility] Other 04-12-2023 10:50-0400 Respiratory rate 20 /min Charbel Rodriguez Other [facility] Other 04-12-2023 10:50-0400 SaO2% (BldA) [Mass fraction] 98 % Charbel Rodriguez Other [facility] Other 04-12-2023 10:50-0400 Systolic blood pressure 138 mm[Hg] Charbel Rodriguez Other [facility] Other 12-07-2022 11:20-0500 Body height 163.19 cm Ronda Ismael Other [facility] Other 12-07-2022 11:20-0500 Body mass index (BMI) [Ratio] 42.57 kg/m2 Ronda Guevara Other [facility] Other 12-07-2022 11:20-0500 Body temperature 97.2 [degF] Ronda Guevara Other [facility] Other 12-07-2022 11:20-0500 Body weight 113.4 kg Ronda Guevara Other [facility] Other 12-07-2022 11:20-0500 SaO2% (BldA) [Mass fraction] 98 % Ronda Guevara Other [facility] Other 08-14-2022 11:13-0400 Body height 165.1 cm [facility] 08-14-2022 11:13-0400 Body weight 120.66 kg [facility] 08-14-2022 11:13-0400 Heart rate 60 /min [facility] 08-13-2022 15:40-0400 Body height 163.19 cm Charbel Rodriguez Other [facility] Other 08-13-2022 15:40-0400 Body mass index (BMI) [Ratio] 45.64 kg/m2 Charbel Rodriguez Other [facility] Other 08-13-2022 15:40-0400 Body temperature 97.7 [degF] Charbel Rodriguez Other [facility] Other 08-13-2022 15:40-0400 Body weight 121.56 kg Charbel Rodriguez Other [facility] Other 08-13-2022 15:40-0400 Diastolic blood pressure 82 mm[Hg] Charbel Rodriguez Other [facility] Other 08-13-2022 15:40-0400 Respiratory rate 18 /min Charbel Rodriguez Other [facility] Other 08-13-2022 15:40-0400 SaO2% (BldA) [Mass fraction] 98 % Charbel Rodriguez Other [facility] Other 08-13-2022 15:40-0400 Systolic blood pressure 132 mm[Hg] Charbel Rodriguez Other [facility] Other 07-07-2022 18:14-0400 Body temperature 98.4 [degF] DO Charbel Rodriguez Work Phone: [facility] 07-07-2022 18:14-0400 Diastolic blood pressure 80 mm[Hg] DO Charbel Rodriguez Work Phone: [facility] 07-07-2022 18:14-0400 Heart rate 65 /min DO Charbel Rodriguez Work Phone: [facility] 07-07-2022 18:14-0400 Respiratory rate 20 /min DO Charbel Rodriguez Work Phone: [facility] 07-07-2022 18:14-0400 SaO2% (BldA) [Mass fraction] 99 % DO Charbel Rodriguez Work Phone: [facility] 07-07-2022 18:14-0400 Systolic blood pressure 147 mm[Hg] DO Charbel Rodriguez Work Phone: [facility] 07-07-2022 18:05-0400 Body height 165.1 cm DO Charbel Rodriguez Work Phone: [facility] 07-07-2022 18:05-0400 Body weight 113.39 kg DO Charbel Alicerosey Work Phone: [facility] Encounters Encounter Date Encounter Type Care Provider Facility Start: 05-25-2024 End: 05-25-2024 ambulatory SYEDA PAYNE Not Available Start: 04-28-2024 End: 04-28-2024 ambulatory RYAN MICHAEL Not Available Start: 04-20-2024 End: 04-20-2024 ambulatory RYAN MICHAEL Not Available Start: 04-13-2024 End: 04-13-2024 ambulatory DO Charbel Michael Work Phone: [facility] Work Phone: Start: 04-13-2024 End: 04-13-2024 Departed Referred DO Charbel Rodriguez Work Phone: [facility] Start: 04-13-2024 Non-patient / Non-visit DO Keegan id Girvin Work Phone: [facility] Work Phone: Start: 04-07-2024 End: 04-07-2024 ambulatory RYAN MICHAEL Not Available Start: 03-31-2024 Non-patient / Non-visit DO Keegan id Girvin Work Phone: [facility] Physician [facility] Work Phone: Start: 03-31-2024 End: 03-31-2024 ambulatory RYAN MICHAEL Not Available Start: 03-16-2024 Non-patient / Non-visit DO Keegan id Girvin Work Phone: [facility] Physician [facility] Work Phone: Start: 03-16-2024 End: 03-16-2024 ambulatory RYAN MICHAEL Not Available Start: 03-11-2024 Non-patient / Non-visit DO Keegan id Girvin Work Phone: [facility] Physician [facility] Work Phone: Start: 03-04-2024 [...] 09-13-2023 End: 09-13-2023 ambulatory Charbel Rodriguez Other [facility] Other Start: 09-13-2023 Telephone encounter Charbel Rodriguez [facility] Start: 09-10-2023 End: 09-10-2023 ambulatory SONIA A VISCI Not Available Start: 06-24-2023 End: 06-24-2023 ambulatory Charbel Rodriguez Other [facility] Other Start: 06-24-2023 Telephone encounter Charbel Rodriguez [facility] Start: 06-03-2023 End: 06-03-2023 ambulatory Charbel Rodriguez Other [facility] Other Start: 06-03-2023 Telephone encounter Charbel Rodriguez [facility] Start: 05-27-2023 End: 05-27-2023 ambulatory Charbel Rodriguez Other [facility] Other Start: 05-27-2023 Telephone encounter Charbel Rodriguez [facility] Start: 05-08-2023 End: 05-08-2023 ambulatory Charbel Rodriguez Other [facility] Other Start: 05-08-2023 Office outpatient vi sit 15 minutes Charbel Rodriguez [facility] Start: 04-26-2023 End: 04-26-2023 ambulatory Charbel Michael Other [facility] Other Start: 04-26-2023 Telephone encounter Charbel Rodriguez [facility] Start: 04-19-2023 End: 04-19-2023 ambulatory Charbel Michael Other [facility] Other Start: 04-19-2023 Telephone encounter Charbel Rodriguez [facility] Start: 04-17-2023 End: 04-17-2023 ambulatory CHARBEL RODRIGUEZ Facility:[facility] Start: 04-17-2023 End: 04-17-2023 Patient encounter procedure Tessa Sanchez MD Work Phone: Orthopaedics Comment on above: 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) Start: 04-12-2023 End: 04-12-2023 ambulatory Charbel Rodriguez Other [facility] Other Start: 04-12-2023 Office outpatient vi sit 15 minutes Charbel Rodriguez [facility] Start: 03-13-2023 End: 03-13-2023 ambulatory CHARBEL RODRIGUEZ Facility:[facility] Start: 02-28-2023 Telephone encounter Tessa bates MD Work Phone: Orthopaedics Comment on above: Electronic Communica tion (PT order faxed today) Start: 01-10-2023 Telephone encounter Tessa bates MD Work Phone: Orthopaedics Comment on above: Return To Work Becky alvarez Start: 01-02-2023 End: 01-02-2023 ambulatory CHARBEL RODRIGUEZ Facility:[facility] Start: 01-02-2023 End: 01-02-2023 Subsequent hospital visit by physician [facility] Work Phone: Radiology Comment on above: [...] 12-07-2022 End: 12-07-2022 ambulatory Ronda Guevara Other [facility] Other Start: 12-07-2022 Office outpatient vi sit 25 minutes Ronda Guevara [facility] Start: 12-07-2022 Telephone encounter Charbel Rodriguez [facility] Start: 11-19-2022 End: 11-19-2022 ambulatory Charbel Rodriguez Other [facility] Other Start: 11-19-2022 Telephone encounter Charbel Rodriguez [facility] Start: 11-14-2022 End: 11-14-2022 Patient encounter procedure Tessa Sanchez MD Work Phone: Orthopaedics Comment on above: 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) Start: 11-14-2022 End: 11-14-2022 Subsequent hospital visit by physician [facility] Work Phone: Radiology Comment on above: Osteochondritis diss ecans of right talus [M93.271] Start: 11-14-2022 End: 11-14-2022 ambulatory CHARBEL RODRIGUEZ [facility] Other Start: 11-14-2022 Telephone encounter Charbel Rodriguez [facility] Start: 11-13-2022 End: 11-14-[address] CHARBEL RODRIGUEZ Facility: Start: 11-12-2022 End: 11-12-2022 ambulatory Charbel Rodriguez Other [facility] Other Start: 11-12-2022 Telephone encounter Charbel Rodriguez [facility] Start: 10-31-2022 Orders Only Tessa Vasquez Work Phone: Orthopaedics Comment on above: 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) Start: 10-10-2022 End: 10-10-2022 ambulatory CHARBEL RODRIGUEZ Facility:[facility] Start: 10-10-2022 End: 10-10-2022 Patient encounter procedure Tessa Sanchez MD Work Phone: Orthopaedics Comment on above: 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) Start: 09-26-2022 Telephone encounter Tessa bates MD Work Phone: Orthopaedics Comment on above: Patient Question Start: 09-12-2022 End: 09-12-2022 ambulatory CHARBEL RODRIGUEZ Facility:[facility] Start: 09-12-2022 End: 09-12-2022 Patient encounter procedure [employer] Work Phone: Orthopaedics Comment on above: 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) Start: 09-05-2022 End: 09-05-2022 ambulatory Charbel Rodriguez Other [facility] Other Start: 09-05-2022 Telephone encounter Charbel Rodriguez [facility] Start: 09-03-2022 End: 09-03-2022 ambulatory Charbel Rodriguez Other [employer] Other Start: 09-03-2022 Telephone encounter Charbel Rodriguez [...] Start: 08-29-2022 End: 08-29-2022 ambulatory CHARBEL RODRIGUEZ WebPT [facility] Other Start: 08-29-2022 Telephone encounter Charbel Rodriguez [facility] Start: 08-28-2022 End: 08-28-2022 ambulatory TESSA SANCHEZ Facility:[facility] Start: 08-27-2022 Refill Tessa Vasquez Work Phone: Orthopaedics Comment on above: Refill Request Start: 08-24-2022 End: 08-24-2022 ambulatory CHARBEL ARROYO ALICEROSEY Facility:[facility] Start: 08-16-2022 End: 08-16-2022 ambulatory Charbel Rodriguez Other [employer] Other Start: 08-16-2022 Telephone encounter Charbel Rodriguez [facility] Start: 08-15-2022 Telephone encounter Tessa bates MD Work Phone: Pre Anesthesia Comment on above: Results; Preparation s For Surgery Start: 08-15-2022 End: 08-15-2022 ambulatory CHARBEL RODRIGUEZ Facility:[facility] Start: 08-14-2022 Encounter for other preprocedural examination CHARBEL RODRIGUEZ [facility] Start: 08-14-2022 End: 08-14-2022 Admission to establishment [facility] Start: 08-14-2022 End: 08-14-2022 ambulatory TESSA SANCHEZ Pre Anesthesia Comment on above: Preop examination (P rimary Dx); Anemia, unspecified type; Difficult intravenous access; Acute bilateral low back pain without sciatica; History of syncope; History of palpitations; Former smoker; BMI 40.0-44.9, adult ([facility]) Start: 08-14-2022 End: 08-14-2022 Preprocedural examination done [facility] Pre Anesthesia Start: 08-13-2022 End: 08-13-2022 ambulatory Charbel Rodriguez Other [employer] Other Start: 08-13-2022 Office outpatient vi sit 15 minutes Charbel Rodriguez [facility] Start: 08-13-2022 Telephone encounter Charbel Rodriguez [facility] Start: 2022 End: 2022 ambulatory CHARBEL RODRIGUEZ Facility:[facility] Start: 2022 End: 2022 Patient encounter procedure Tessa Sanchez MD Work Phone: Orthopaedics Comment on above: 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) Start: 08-01-2022 End: 08-01-[address] CHARBEL RODRIGUEZ Facility: Start: 07-09-2022 End: 07-09-2022 ambulatory Charbel Rodriguez Other [employer] Other Start: 07-09-2022 Telephone encounter Charbel Rodriguez [facility] Start: 07-07-2022 End: 07-07-2022 Emergency department patient visit DO Charbel Rodriguez Work Phone: [facility] Start: 06-28-2022 End: 06-28-[address] CHARBEL RODRIGUEZ Facility: Start: 05-23-2022 End: 05-23-2022 ambulatory Charbel Rodriguez Other [employer] Other Start: 05-23-2022 Telephone encounter Charbel Rodriguez [facility] Start: 01-06-[address] CHARBEL RODRIGUEZ Facilit y:H1 Procedures Date Procedure Procedure Detail Performing Clinician Start: 03-31-2024 Group B Streptococcu s Culture DO Charbel Rodriguez Work Phone: Start: 01-02-2023 Radex ankle complete minimum 3 views Tessa Sancehz MD Work Phone: Start: 11-14-2022 Radex ankle complete minimum 3 views Tessa Sanchez MD Work Phone: H/O: section Status post C-secti on DO Charbel Rodriguez Work Phone: Plan of Treatment Date Care Activity Detail Author Start: 11-29-2031 Urine microalbumin profile DTaP,Tdap,Td Vaccine (7 - Td or Tdap) [facility] Start: 06-28-2023 Influenza vaccination [facility] Start: 08-14-2022 End: 10-14-2022 Basic metabolic 2000 panel - Serum or Plasma BASIC METABOLIC PNL Lab Routine History of syncope Expected: 08/14/2022, Expires: 10/14/2022 [facility] Work Phone: Comment on above: Expected: 08/14/2022 , Expires: 10/14/2022 Start: 08-14-2022 End: 10-14-2022 CBC panel - Blood by Automated count CBC Lab Routine Preop examination Anemia, unspecified type Expected: 08/14/2022, Expires: 10/14/2022 [facility] Work Phone: Comment on above: Expected: 08/14/2022 , Expires: 10/14/2022 Start: 07-07-2022 X-ray of right ankle XR ankle RT min 3V* [facility] Start: 07-07-2022 XR Ankle - right GE 3 Views [facility] Work Phone: Start: 06-28-2022 Influenza vaccination INFLUENZA (#1) [facility] Start: 10-28-2021 DEPRESSION ASSESSMENT DEPRESSION ASS ESSMENT [facility] Start: 2015 PAP TESTING PAP TESTING [facility] Start: 2013 Urine microalbumin profile DTAP,TDAP,TD (1 - Tdap) [facility] Start: 2012 HEPATITIS C SCREENING HEPATITIS C [place] [facility] Start: 2012 HIV SCREENING HIV SCREENING [facility] Start: 2000 PNEUMOCOCCAL (1 - PCV) PNEUMOCOCCAL (1 - PCV) [facility] Start: 02-06-1995 COVID-19 VACCINE (#1) COVID-19 VACCI NE (#1) [facility] Start: 1994 HEPATITIS B (1 of 3 - 3-dose series) HEPATITIS B (1 of 3 - 3-dose series) [facility] Patient Education Ankle Sprain ED [facility] Work Phone: Patient referral [facility] Work Phone: End: 11-30-2023 XR ANKLE GENERAL 3V AP/LAT/OBL RIGHT XR ANKLE GENERAL 3V AP/LAT/OBL RIGHT Radiology Routine Osteochondritis dissecans of right talus 1 Occurrences starting 11/02/2022 until 11/30/2023 [facility] Work Phone: Comment on above: 1 Occurrences starti ng 11/02/2022 until 11/30/2023 [facility] Immun[facility] Immunization Date Immunization Notes Care Provider Judy adamson 11-29-2021 tetanus toxoid, reduced diphtheria toxoid, and acellular pertussis vaccine, adsorbed DO Charbel Rodriguez Work Phone: [facility] NEGATED: Highlighted row has not occurred!08-07-2019 influenza, seasonal, injectable Patient Objection Charbel Rodriguez Other [employer] Other Payers Date Payer Category Payer Self-pay [id number] 2022 Medicaid [id number] 2. [id number] 2021 Medicaid [id number] 5 2018 Unknown [id number] [id number] 5 1994 Unknown [id number] 2.16.84 0.1.104464.3.579.2.593 1994 Unknown [id number] 2.16.84 0.1.608832.3.579.2.593 1994 Unknown [id number] 2.16.84 0.1.904901.3.579.2.593 1994 Unknown [id number] 2.16.84 0.1.862500.3.579.2.593 1994 Unknown [id number] 2.16.84 0.1.368387.3.579.2.1259 1994 Unknown [id number] 2.16.84 0.1.724714.3.579.2.1259 1994 Unknown [id number] 2.16.84 0.1.302272.3.579.2.1259 1994 Unknown [id number] 2.16.84 0.1.026064.3.579.2.1259 1994 Unknown [id number] 2.16.84 0.1.903657.3.579.2.1259 1994 Unknown [id number] 2.16.84 0.1.353049.3.579.2.1259 1994 Unknown [id number] 2.16.84 0.1.519844.3.579.2.1259 1994 Unknown [id number] 2.16.84 0.1.384529.3.579.2.1259 1994 Unknown [id number] 2.16.84 0.1.283646.3.579.2.1259 1994 Unknown [id number] 2.16.84 0.1.634078.3.579.2.1259 1994 Unknown [id number] 2.16.84 0.1.643661.3.579.2.1259 1994 Unknown [id number] 2.16.84 0.1.652379.3.579.2.1259 1994 Unknown [id number] 2.16.84 0.1.691457.3.579.2.1259 1994 Unknown [id number] 2.16.84 0.1.537128.3.579.2.1259 1994 Unknown [id number] 2.16.84 0.1.409557.3.579.2.1259 1994 Unknown [id number] 2.16.840 .1.052949.3.579.2.1259 1994 Unknown [id number] 2.16.840 .1.659435.3.579.2.1259 1994 Unknown [id number] 2.16.840 .1.421141.3.579.2.1259 1994 Unknown [id number] 2.16.840. 1.587112.3.579.2.1259 1959 Medicaid [id number] 1959 Unknown [id number] Medicaid [place] Advantage [id number] Unknown [id number] 2.16.8 40.1.228047.3.579.2.531 Social History Date Type Detail Facility Start: 07-07-2022 End: 01-13-2024 Tobacco smoking status WVIS Ex-smoker (finding) [facility] Start: 1995 Sex Assigned At Female F [facility] Start: 10-03-2018 Tobacco smoking stat us [facility] Occasional tobacco smoker [facility] Start: 10-03-2018 End: 08-14-2022 Tobacco use and exposure Smokeless tobacco non-user [facility] Start: 01-01-2019 End: 08-14-2022 Alcohol intake Current non-drinker of alcohol (finding) [facility] Start: 1994 Sex Assigned At Not on file [facility] Start: 08-14-2022 End: 11-10-2022 Sex Assigned At [facility] [employer] Other End: 10-28-2019 History of tobacco use Current smoker [facility] Work Phone: End: 10-28-2019 History of tobacco use Cigarette Smoker [facility] Work Phone: Start: 08-14-2022 End: 11-10-2022 Cigarettes smoked current (pack per day) - Reported 0.3 [facility] Start: 08-04-2022 End: 08-28-2022 Exposure to SARS-CoV-2 (event) Not sure [facility] Work Phone: National Score (1-100), lower number is lower risk 86 [facility] Clinical Notes 05-23-2022 to 06-03-2023 Note Date & Type Note Facility 06-03-2023 Evaluation note Encounter Date Diagnosis Assessment Notes May, Depression (ICD-10 - F32.9) [facility] Other 07-12-2023 Evaluation note* Encounter Date Diagnosis [...] her dose should be increased or not. [employer] Other 06-30-2023 Evaluation note* Encounter Date Diagnosis Assessment Notes Treatment Notes Treatment Clinical Notes Mar, Weight gain (ICD-10 - R63.5) [employer] Other 06-21-2023 NoteHNO ID: [id number] Author: Tessa Sanchez MD Service: ? Author [...] and is of normal mood and affect. [facility] 07/02/2022 Gait Cycle: Normal Yes, Limp: [...] records. This note was partially generated using [email or web address] voice recognition system, and there may be some incorrect words, spellings, and punctuation that were not noted in checking the note before saving. Tessa Sanchez M.D.[facility]06-21-2023 History of Present illness Narrative* [...] records. This note was partially generated using [email or web address] voice recognition system, and there may be some incorrect words, spellings, and punctuation that were not noted in checking the note before saving. Tessa Sanchez M.D. documented in this encounterCrystal Clinic [facility] Center06-16-2023 Evaluation note* Encounter Date Diagnosis Assessment Notes [...] can take a multivitamin daily ([place] Complete) [employer] Other 05-17-2023 NoteHNO ID: [id number] Author: Tessa Sanchez MD Service: ? Author [...] records. This note was partially generated using [email or web address] voice recognition system, and there may be some incorrect words, spellings, and punctuation that were not noted in checking the note before saving. Tessa aSnchez M.D.[facility]05-05-2023 Miscellaneous Notes* Telephone Encounter - Lizzette Adams RN - 03/01/2023 10:21 AM EDT Faxed today at 10:20am. Lizzette Adams RN * Telephone Encounter - Margy Contreras Pss - 02/28/2023 4:08 PM EDT Patient wants to get physical therapy at [facility] [place]. Has been approved by [facility] and she can now schedule. Asking for recent therapy order from Dr Sanchez be faxed to [facility] [place] at [phone]. documented in this encounterCrystal Clinic [facility]03-17-2023 Miscellaneous Notes* Telephone Encounter - Lizzette Adams [...] calling: self Call patient at: at home [phone] (home) [phone] (cell) Was an appointment scheduled: No Closing statement: Results or non-symptom based questions: Thank you for calling [facility], your call will be returned within the [...] back to the office to update CALL [phone] documented in this encounterCrystal Clinic Orthopedic Center03-08-2023 NoteHNO ID: [id number] Author: RT Rubina(R) Service: Radiology Author Type: [...] Florence Cespedes RT(R) January 02, 2023 4:10 [facility]03-08-2023 NoteHNO ID: [id number] Author: Tessa Sanchez MD Service: ? Author [...] records. This note was partially generated using [email or web address] voice recognition system, and there may be [...] Past Histories independently gathered by the clinical support assistant and the remaining scribed note accurately describes my personal service to the patient. Tessa Sanchez M.D.[facility]03-08-2023 History of Present illness Narrative* [...] 02, 2023 4:10 PM documented in this encounterCrystal Clinic [facility] Center03-08-2023 History of Present illness Narrative* Tessa Sanchez [...] records. This note was partially generated using [email or web address] voice recognition system, and there may be [...] Past Histories independently gathered by the clinical support assistant and the remaining scribed note accurately describes my personal service to the patient. Tessa Sanchez M.D. documented in this encounterCrystal Clinic [facility]opedic Center02-24-2023 Miscellaneous Notes* Telephone Encounter - Vinay Corona RN - 12/21/2022 5:34 PM EST This RN called and spoke with patient. Letter sent via Nadanu she report she received it. Also discussed leaving printed office notes up at front desk person file for strip picker. She was grateful for the call. Vinay Corona JUMPBASTING COLLAR BASTER * Telephone Encounter - Ana Luisa Hernandez [...] that prevented her form having PT. CALL [phone] * Telephone Encounter - Autumn Clayton - [...] with update Please advise documented in this encounterCrystal Clinic [facility]opedic Center02-24-2023 Miscellaneous Notes* Telephone Encounter - Vinay Corona [...] office to complete them. documented in this encounterCrystal Clinic [facility]opedic Center02-10-2023 Evaluation note* Encounter Date Diagnosis Assessment Notes [...] treatment plan. Patient left in stable condition [facility] Other 01-23-2023 Evaluation note* Encounter Date Diagnosis Assessment Notes Treatment Notes Treatment Clinical Notes Oct, Cough (ICD-10 - R05.9) Oct, Sore throat (ICD-10 - J02.9) Oct, Headache (ICD-10 - R51.9) Oct, Congestion of nasal sinus (ICD-10 - R09.81) [employer] Other 01-18-2023 NoteHNO ID: [id number] Author: RT Marquis(R) Service: Radiology Author Type: [...] BY: RT Marquis(R) November 14, 2022 4:05 [facility]01-18-2023 History of Present illness Narrative* Syeda Jennings [...] 14, 2022 4:05 PM documented in this encounterCrystal Clinic [facility] Center01-18-2023 Evaluation note* Encounter Date Diagnosis Assessment Notes Treatment Notes Treatment Clinical Notes Oct, Leukocytosis (ICD-10 - D72.829) [employer] Other 01-17-2023 NoteHNO ID: [id number] Author: Tessa Sanchez MD Service: ? Author [...] proprioception and follow-up in 4 weeks [facility] History of Present illness Narrative* [...] weeks Tessa Sanchez MD documented in this encounterCrystal Clinic [facility]opedic Center01-16-2023 Evaluation note* Encounter Date Diagnosis Assessment Notes Treatment Notes Treatment Clinical Notes Oct, Nausea (ICD-10 - R11.0) She voices that she does not feel right . I would like to rule out . I do not want to add any medication until we know for sure if she is or not. She is agreeable to this and will have this done at the [facility] lab. She can call for results. She [...] Oct, Other 2:54 PM - 3:02 PM [employer] Other 12-14-2022 NoteHNO ID: [id number] Author: Tessa Sanchez MD Service: ? Author [...] in 6 weeks for recheck Tessa Sanchez [facility]12-14-2022 History of Present illness Narrative* [...] recheck Tessa Sanchez MD documented in this encounterCrystal Clinic Orthopedic Center12-02-2022 Miscellaneous Notes* Telephone Encounter - Lizzette Adams RN - 09/28/2022 2:23 PM EST I spoke with Kathie on 09/26/22. Lizzette Adams RN * Telephone Encounter - Rita Tidwell - 09/26/2022 11:12 AM EST Patient requesting to speak with provider or staff in regards to right leg pain. She is having painfrom her toes up to her knee. Her right ankle surgery was 08/28/22 and questions if pain is normal?Patient is to start therapy today at 6 pm. Patient requesting a return call through #[phone] #[phone]. The second number is her boyfriends line, Elias. Patient gives okay to leave me ssage with Elias if needed. Please advise. documented in this encounterCrystal Clinic Orthopedic Center11-16-2022 NoteHNO ID: [id number] Author: Tessa Sanchez MD Service: ? Author [...] follow up in 4 weeks. Tessa Sanchez [facility]11-16-2022 NoteHNO ID: [id number] Author: Alfred Campo Cast Service: ? Author Type: ? Type: Progress Notes Filed: 09/12/2022 4:10 PM Note Text: PT ASSESSMENT - CASTING ROOM Edith presents for cast removal. Applied pneumatic aircast walker(HAD PRIOR TO SURGERY) to Right leg non-weight bearing Patient has been instructed in Care of boot.. Alfred Campo Cast Beeper: [id number] [facility]11-16-2022 History of Present illness Narrative* [...] weeks. Tessa Sanchez MD documented in this encounterCrystal Clinic Orthopedic Center11-16-2022 History of Present illness Narrative* Alfred Campo Cast - 09/12/2022 4:04 PM EST PT ASSESSMENT - CASTING ROOM Edith presents for cast removal. Applied pneumatic aircast walker(HAD PRIOR TO SURGERY) to Right leg non-weight bearing Patient has been instructed in Care of boot.. Alfred Campo Cast Beeper: [id number] documented in this encounterCrystal Clinic Orthopedic Center11-07-2022 Miscellaneous Notes* Telephone Encounter - Lizzette Adams [...] until 09/12. Please advise. documented in this encounterCrystal Clinic Orthopedic Center11-07-2022 NoteHNO ID: [id number] Author: Lizzette Adams RN Service: ? Author [...] was the physician present today. Lizzette Adams RNMercer County Community Hospital11-06-2022 Miscellaneous Notes* Telephone Encounter - [...] MD Orthopaedic Surgery, PGY-3 documented in this encounterCrystal Clinic Orthopedic Center11-02-2022 NoteHNO ID: [id number] Author: Alfred Griffith Service: ? Author Type: ? Type: Progress Notes Filed: 08/29/2022 3:44 PM Note Text: PT ASSESSMENT - CASTING ROOM Edith presents for Application of cast. Applied short cast: to Right leg non-weight bearing Patient has been instructed in Care of cast.. Alfred Campo Cast Beeper: [id number] County [facility] Hospital11-02-2022 History of Present illness Narrative* Alfred Santosey Cast - 08/29/2022 3:40 PM EDT PT ASSESSMENT - CASTING ROOM Edith presents for Application of cast. Applied short cast: to Right leg non-weight bearing Patient has been instructed in Care of cast.. Alfred Campo Cast Beeper: [id number] documented in this encounterCrystal Clinic Orthopedic Center11-01-2022 NoteHNO ID: [id number] Author: Mike Alcantar MD Service: Anesthesiology Author Type: Anesthesiologist Type: Anesthesia Procedure Notes Filed: 08/28/2022 1:01 PM Note Text: ANESTHESIOLOGY PROCEDURE NOTE Peripheral Nerve Block General Information Procedure Start Time/Medication Administration: 08/28/2022 12:48 PM Procedure End time: 08/28/2022 12:58 PM Patient location during procedure: PACU Timeout Performed Pre-procedure: timeout performed (2454) Consent Obtained: Yes 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, patient and care human resources team member Reason for block: post-op pain [...] August 28, 2022 TIME: 1:00 PM CSN: [id number] NoteHNO ID: [id number] Author: GEORGIE Tinsley Service: Anesthesiology Author Type: Matrix Repairer Type: Anesthesia Procedure Notes Filed: 08/28/2022 10:57 [...] August 28, 2022 TIME: 10:56 AM CSN: [id number] NoteHNO ID: [id number] Author: Mike Alcantar MD Service: Anesthesiology Author Type: Anesthesiologist Type: Anesthesia Procedure Notes Filed: 08/28/2022 9:35 AM Note Text: ANESTHESIOLOGY PROCEDURE NOTE Peripheral Nerve Block General Information Procedure Start Time/Medication Administration: 08/28/2022 9:16 AM Procedure End time: 08/28/2022 9:24 AM Patient location during procedure: pre-op Timeout Performed Pre-procedure: timeout performed (920) Consent Obtained: Yes 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, patient and care human resources team member Reason for block: post-op pain [...] August 28, 2022 TIME: 9:33 AM CSN: [id number] Miscellaneous Notes* Telephone Encounter - Kasi Mathur [...] EDT Response from Dr. Sanchez's team: Alyx Graves You 19 hours ago (1:29 PM) NG [...] Right scheduled with you on 08/28/2022 at [facility] under [facility]. She had her pre-op labs [...] Kasi Mathur PA-C PACC documented in this encounterCrystal Clinic Orthopedic Center10-18-2022 Instructions* Patient Instructions* Kasi Mathur PA-C - 08/14/2022 11:33 AM EDT Lab in [place]: [facility] [place] [address] PATIENT PREOPERATIVE INSTRUCTIONS Tessa Sanchez MD has scheduled you for your procedure at this surgery center: [facility]: [phone] --[address] [place] [address]. Please read below carefully for your personalized [...] Procedures: - YOU MUST HAVE A RESPONSIBLE MOLDED RUBBER GOODS CUTTER TAKE YOU HOME. A DOUBLE SPINDLE SHAPER OPERATOR OR BOAT LOADER CANNOT BE MADE A RESPONSIBLE MOLDED RUBBER GOODS CUTTER. - We recommend that a responsible person [...] Advance Directive, please fax a copy to [phone] or email to for it to be [...] day. Kasi Mathur PA-C documented in this encounterCrystal Clinic Orthopedic Center10-18-2022 History and physical note * Kasi Mathur [...] fevers. 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 [...] or incontinence,, stones or chronic kidney disease DIRECTOR MEDICAL SCIENCE: Negative for abnormal vaginal bleeding, abnormal vaginal [...] visit: Labs per care everywhere reviewed: 11/29/2021 [facility] CBC Hgb 9.0 (11.8-15.4) Hct 26.5% [...] a prior CC echocardiographic exam for comparison. 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 Predominant underlying rhythm was Sinus Rhythm. No Isolated SVEs, SVE Couplets, or SVE Triplets were present. Isolated VEs were frequent (8.2%, 62261), and no VE Couplets or VE Triplets [...] ppd x years 8. BMI 40.0-44.9, adult ([facility]) BMI 44 METS: Climb a flight of [...] 11:04 AM PAGER/CONTACT #: documented in this encounterCrystal Clinic Orthopedic Center10-17-2022 Evaluation note* Encounter Date Diagnosis Assessment Notes [...] she can discuss this treatment with her acid pumper. She is having surgery on 08-28-22. Guidance [...] with Dr. Sanchez at the [facility] location, she was referred to him by Dr. Cosby. She thinks it is bone that is trying to heal. [employer] Other 10-12-2022 NoteHNO ID: [id number] Author: Tessa Sanchez MD Service: ? Author [...] Scan The patient's pertinent medical history from [facility] has been reviewed. PFOMIS forms [...] the patient, and the (more content not included)...[facility]10-12-2022 History of Present illness Narrative* [...] Scan The patient's pertinent medical history from [facility] has been reviewed. PFOMIS forms [...] records. This note was partially generated using [employer] voice recognition system, and there may be [...] Past Histories independently gathered by the clinical support assistant and the remaining scribed note accurately describes my personal service to the patient. Tessa Sanchez M.D. documented in this encounterCrystal Clinic Orthopedic Center07-27-2022 Evaluation note* Encounter Date Diagnosis Assessment Notes [...] S82.899A) right ankle She has seen an export freight specialist twice for a right ankle fracture. [...] Apr, Other 9:55 AM - 10:05 AM [employer] Other Evaluation noteNo assessment information available [facility] Work Phone: Evaluation note* Diagnosis Osteochondritis dissecans of right talus- Primary documented in this encounter [facility] noteNo InformationNort [employer] Other Evaluation note* Diagnosis Preop examination- Primary [...] of right talus documented in this encounter [facility] note* Diagnosis Leukocytosis, unspecified type- Primary Osteochondritis dissecans of right talus documented in this encounter [facility] note* 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 documented in this encounter [facility] note* Diagnosis Osteochondritis dissecans of right talus- Primary documented in this encounter [facility] note* Diagnosis Osteochondritis dissecans of right talus- Primary documented in this encounter [facility] note* Diagnosis Osteochondritis dissecans of right talus- Primary documented in this encounter [facility] note* Diagnosis Osteochondritis dissecans of right talus- Primary documented in this encounter [facility] note* Diagnosis Osteochondritis dissecans of right talus- Primary documented in this encounter [facility] note* Diagnosis Osteochondritis dissecans of right talus- Primary documented in this encounter [facility] note* Diagnosis Osteochondritis dissecans of right talus- Primary documented in this encounter [facility] note* Diagnosis Osteochondritis dissecans of right talus documented in this encounter [facility] general Narrative - Reported* Type Description Date Medical History reflux Medical History menstrual irregularity Medical History vertigo Medical History anxiety Medical History ankle fx right Surgical History T & A 2003 Surgical History Mole removal Surgical History C section Surgical History IUD -Reyna 03/31/17 Surgical History 11/28/21 Hospitalization History See Above [facility] general Narrative - Reported* Type Description Date Medical History reflux Medical History menstrual irregularity Medical History vertigo Medical History anxiety Medical History ankle fx right Surgical History T & A 2003 Surgical History Mole removal Surgical History C section Surgical History IUD -Reyna 03/31/17 Surgical History 11/28/21 Surgical History right ankle surgery 08/28/22 Hospitalization History See Above [facility] general Narrative - Reported* Type Description Date Medical History reflux Medical History menstrual irregularity Medical History vertigo Medical History anxiety Medical History ankle fx right Surgical History T & A 2003 Surgical History Mole removal Surgical History C section Surgical History IUD -Reyna 03/31/17 Surgical History 11/28/21 Surgical History right ankle surgery 08/28/22 Surgical History IUD removed 03/06/23 Hospitalization History See Above [facility] Other [facility] for referral (narrative)* Diagnostic Procedure Only (Routine) - Pending Review Specialty Diagnoses / Procedures Referred By Contac t Referred To Contact XR IMAGING Diagnoses Osteochondritis dissecans of right talus Procedures XR ANKLE GENERAL 3V AP/LAT/OBL RIGHT RADEX ANKLE COMPLETE MINIMUM 3 [place] [address] [place] [address] Xr Imaging Referral ID Status Reason Start Date Expiration Date Visits Requested Visits Authorized [id number] Pending Review Auto-Generat ed Referral 11/02/2022 11/30/2023 1 1 [facility] for referral (narrative)* - Pending Review Specialty Diagnoses / Procedures Referred By Contac t Referred To Contact Physical Therapy Diagnoses Osteochondritis dissecans of right talus Procedures CONSULT [place] [address] [place] [address] Referral ID Status Reason Start Date Expiration Date V isits Requested Visits Authorized [id number] Pending Review 04/17/2023 07/16/2023 1 1 [facility] for referral (narrative)* Diagnostic Procedure Only (Routine) - Closed Specialty Diagnoses / Procedures Referred By Contac t Referred To Contact XR IMAGING Diagnoses Osteochondritis dissecans of right talus Procedures XR ANKLE GENERAL 3V AP/LAT/OBL RIGHT RADEX ANKLE COMPLETE MINIMUM 3 [place] [address] [place] [address] [place] [address] Referral ID Status Reason Start Date Expiration Date V isits Requested Visits Authorized [id number] Closed Auto-Generate d Referral 01/02/2023 01/31/2024 1 1 [facility] for referral (narrative)* Diagnostic Procedure Only (Routine) - Closed Specialty Diagnoses / Procedures Referred By Contac t Referred To Contact XR IMAGING Diagnoses Osteochondritis dissecans of right talus Procedures XR ANKLE GENERAL 3V AP/LAT/OBL RIGHT RADEX ANKLE COMPLETE MINIMUM 3 [place] [address] [place] [address] [place] [address] Referral ID Status Reason Start Date Expiration Date V isits Requested Visits Authorized [id number] Closed Auto-Generate d Referral 11/02/2022 11/30/2023 1 1 [facility] Summary Purpose Family History No [...] HIGH COMPLEX [address] [place] [address] [place] [address] [facility] [address] [place] [address] Referral ID Status Reason Start Date Expiration Date Visits Requested Visits Authorized [id number] Pending Review Auto-Generat ed Referral 2 09/12/2023 1 1 Additional Source Comments INFORMATION SOURCE (unrecogn ized section and content) DATE CREATED AUTHOR 05/08/2022 [facility] dical Specialist DATE CREATED AUTHOR AUTHOR'S ORGANIZ ATION 08/29/2022 [facility] DATE CREATED AUTHOR AUTHOR'S ORGANIZ ATION 11/15/2022 [facility] DATE CREATED AUTHOR AUTHOR'S ORGANIZ ATION 05/28/2023 [facility] DATE CREATED AUTHOR AUTHOR'S ORGANIZ ATION 04/20/2024 [facility] DATE CREATED AUTHOR AUTHOR'S ORGANIZ ATION 05/26/2024 [facility] dical Specialists EPIC Care Teams (unrecognized sec tion and content) Team Status: Inactive Member Role Status Dates Charbel Rodriguez DO Primary Care Provider Active Constantine Yee PA-C Emergency Provider Active Team Status: Active Member Role Status Dates Charbel Rodriguez DO Primary Care Provider Active Data Network Architect Relationship Specialty Start Date End Date Charbel Rodriguez, DO [address] [place] [address] PCP - General Family Medicine 07/07/18 Charbel Cosby [address] [place] [address] Referring Orthopedics 07/18/22 Data Network Architect Relationship Specialty Start Date End Date Charbel Rodriguez, DO [address] [place] [address] PCP - General Family Medicine 07/07/18 Charbel Cosby [address] [place] [address] Referring Orthopedics 07/18/22 Data Network Architect Relationship Specialty Start Date End Date Charbel Rodriguez, DO [address] [place] [address] PCP - General Family Medicine 07/07/18 Charbel Cosby [address] [place] [address] Referring Orthopedics 07/18/22 Data Network Architect Relationship Specialty Start Date End Date Charbel Rodriguez, DO [address] [place] [address] PCP - General Family Medicine 07/07/18 Charbel Cosby [address] [place] [id number] Referring Orthopedics 07/18/22 Data Network Architect Relationship Specialty Start Date End Date Charbel Rodriguez, DO [address] [place] [address] PCP - General Family Medicine 07/07/18 Charbel Cosby [address] [place] [address] Referring Orthopedics 07/18/22 Data Network Architect Relationship Specialty Start Date End Date Charbel Rodriguez, DO [address] [place] [id number] PCP - [facility] Medicine 07/07/18 Charbel Cosby [address] [place] [address] Referring Orthopedics 07/18/22 Data Network Architect Relationship Specialty Start Date End Date Charbel Rodriguez, DO [address] [place] [address] PCP - [facility] Medicine 07/07/18 Charbel Cosby [address] [place] [address] Referring Orthopedics 07/18/22 Data Network Architect Relationship Specialty Start Date End Date Charbel Rodriguez, DO [address] [place] [id number] PCP - [facility] Medicine 07/07/18 Charbel Cosby [address] [place] [address] Referring Orthopedics 07/18/22 Data Network Architect Relationship Specialty Start Date End Date Charbel Rodriguez, DO [address] [place] [address] PCP - General Family Medicine 07/07/18 Charbel Cosby [address] [place] [address] Referring Orthopedics 07/18/22 Data Network Architect Relationship Specialty Start Date End Date Charbel Rodriguez, DO [address] [place] [address] PCP - [facility] Medicine 07/07/18 Charbel Cosby [address] [place] [address] Referring Orthopedics 07/18/22 Data Network Architect Relationship Specialty Start Date End Date Charbel Rodriguez, DO [address] [place] [address] PCP - [facility] 07/07/18 Charbel Cosby [address] [place] [address] Referring Orthopedics 07/18/22 Data Network Architect Relationship Specialty Start Date End Date Charbel Rodriguez, DO [address] [place] [address] PCP - [facility] 07/07/18 Charbel Cosby [address] [place] [address] Referring Orthopedics 07/18/22 Data Network Architect Relationship Specialty Start Date End Date Charbel Rodriguez, DO [address] [place] [address] PCP - [facility] Medicine 07/07/18 Charbel Cosby [address] [place] [address] Referring Orthopedics 07/18/22 Data Network Architect Relationship Specialty Start Date End Date Charbel Rodriguez DO [address] [place] [address] PCP - [facility] 07/07/18 Charbel Cosby [address] [place] [address] Referring Orthopedics 07/18/22 Data Network Architect Relationship Specialty Start Date End Date Charbel Rodriguez DO [address] [place] [address] PCP - [facility] Medicine 07/07/18 Charbel Cosby [address] [place] [address] Referring Orthopedics 07/18/22 Data Network Architect Relationship Specialty Start Date End Date Charbel Rodriguez DO [address] [place] [address] PCP - [facility] Medicine 07/07/18 Charbel Cosby [address] [place] [address] Referring Orthopedics 07/18/22 Team Status: Active Member Role Status Dates Roland Gomez LPN Care Manager Active Charbel Rodriguez DO Primary Care Provider Active Team Status: Active Member Role Status Dates Charbel Rodriguez DO Primary Care Provider Active S tart: March 11, 2024 Ryan Rodriguez Attending Provider Active Start: Kishore clement 2023 Team Status: Active Member Role Status Dates Charbel Rodriguez DO Primary Care Provider Active S tart: March 16, 2024 Ryan Rodriguez Attending Provider Active Start: Kishore clement 2023 Team Status: Active Member Role Status Dates Charbel Rodriguez DO Primary Care Provider Active S tart: March 31, 2024 Ryan Rodriguez Attending Provider Active Start: 2023 Team Status: Active Member Role Status Dates Charbel Rodriguez DO Primary Care Provider Active S tart: April 13, 2024 Ryan Rodriguez Attending Provider Active Start: [place]urel 2023 Team Status: Inactive Member Role Status Dates Charbel Rodriguez DO Primary Care Provider Active S tart: April 13, 2024 End: April 13, 2024 Ryan Rodriguez Attending Provider Active Start: [place] 2023 End: April 13, 2024 Goals (unrecognized [...] or prosecute any alcohol or drug abuse patient.[facility] CenterIn the event this information is protected by the Federal Confidentiality of Alcohol and Drug Abuse Patient Records regulations: The Federal rules restrict any use of the information to criminally investigate or prosecute any alcohol or drug abuse patient.[facility] CenterIn the event this information is protected by the Federal Confidentiality of Alcohol and Drug Abuse Patient Records regulations: The Federal rules restrict any use of the information to criminally investigate or prosecute any alcohol or drug abuse patient.[facility] CenterIn the event this information is protected by the Federal Confidentiality of Alcohol and Drug Abuse Patient Records regulations: The Federal rules restrict any use of the information to criminally investigate or prosecute any alcohol or drug abuse patient.[facility] CenterIn the event this information is protected by the Federal Confidentiality of Alcohol and Drug Abuse Patient Records regulations: The Federal rules restrict any use of the information to criminally investigate or prosecute any alcohol or drug abuse patient.[facility] CenterIn the event this information is protected by the Federal Confidentiality of Alcohol and Drug Abuse Patient Records regulations: The Federal rules restrict any use of the information to criminally investigate or prosecute any alcohol or drug abuse patient.[facility] CenterIn the event this information is protected by the Federal Confidentiality of Alcohol and Drug Abuse Patient Records regulations: The Federal rules restrict any use of the information to criminally investigate or prosecute any alcohol or drug abuse patient.[facility] CenterIn the event this information is protected by the Federal Confidentiality of Alcohol and Drug Abuse Patient Records regulations: The Federal rules restrict any use of the information to criminally investigate or prosecute any alcohol or drug abuse patient.[facility] CenterIn the event this information is protected by the Federal Confidentiality of Alcohol and Drug Abuse Patient Records regulations: The Federal rules restrict any use of the information to criminally investigate or prosecute any alcohol or drug abuse patient.[facility] CenterIn the event this information is protected by the Federal Confidentiality of Alcohol and Drug Abuse Patient Records regulations: The Federal rules restrict any use of the information to criminally investigate or prosecute any alcohol or drug abuse patient.[facility] CenterIn the event this information is protected by the Federal Confidentiality of Alcohol and Drug Abuse Patient Records regulations: The Federal rules restrict any use of the information to criminally investigate or prosecute any alcohol or drug abuse patient.[facility] CenterIn the event this information is protected by the Federal Confidentiality of Alcohol and Drug Abuse Patient Records regulations: The Federal rules restrict any use of the information to criminally investigate or prosecute any alcohol or drug abuse patient.[facility] CenterIn the event this information is protected by the Federal Confidentiality of Alcohol and Drug Abuse Patient Records regulations: The Federal rules restrict any use of the information to criminally investigate or prosecute any alcohol or drug abuse patient.[facility] CenterIn the event this information is protected by the Federal Confidentiality of Alcohol and Drug Abuse Patient Records regulations: The Federal rules restrict any use of the information to criminally investigate or prosecute any alcohol or drug abuse patient.[facility] CenterIn the event this information is protected by the Federal Confidentiality of Alcohol and Drug Abuse Patient Records regulations: The Federal rules restrict any use of the information to criminally investigate or prosecute any alcohol or drug abuse patient.[facility] CenterIn the event this information is protected by the Federal Confidentiality of Alcohol and Drug Abuse Patient Records regulations: The Federal rules restrict any use of the information to criminally investigate or prosecute any alcohol or drug abuse patient.[facility] CenterIn the event this information is protected by the Federal Confidentiality of Alcohol and Drug Abuse Patient Records regulations: The Federal rules restrict any use of the information to criminally investigate or prosecute any alcohol or drug abuse patient.[facility] CenterIn the event this information is protected by the Federal Confidentiality of Alcohol and Drug Abuse Patient Records regulations: The Federal rules restrict any use of the information to criminally investigate or prosecute any alcohol or drug abuse patient.[facility] CenterIn the event this information is protected by the Federal Confidentiality of Alcohol and Drug Abuse Patient Records regulations: The Federal rules restrict any use of the information to criminally investigate or prosecute any alcohol or drug abuse patient.[facility] CenterIn the event this information is protected by the Federal Confidentiality of Alcohol and Drug Abuse Patient Records regulations: The Federal rules restrict any use of the information to criminally investigate or prosecute any alcohol or drug abuse patient.[facility] CenterIn the event this information is protected by the Federal Confidentiality of Alcohol and Drug Abuse Patient Records regulations: The Federal rules restrict any use of the information to criminally investigate or prosecute any alcohol or drug abuse patient.[facility] Reason for Visit (unrecogniz ed section and content) Reason Comments Radio Gen RMP Specialty Diagnoses / Procedures Referred By Contac t Referred To Contact XR 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 [facility]. provides no warranty or guarantee of the accuracy or completeness of information in this document.
[2024-05-28 12:00] LABS: Estimated Average Glucose 111 mg/dL; Glycohemoglobin A1C 5.5 % (4.5-6.2)
== END 2024-05-28 11:07 | disposition home or self-care (01) ==
LOC: LAB 11:09
PROVIDERS: PCP Family Medicine; Visit Provider Family Medicine
DX: R73.9 Hyperglycemia, unspecified (principal)
CPT/HCPCS: 36415; 83036

== ENCOUNTER 2024-06-24 20:11 | Emergency (ER) | payer OTHER, SELFPAY ==
[2024-06-24 20:20] VITALS: BP 155/99; PULSE 68; TEMP 36.9; O2SAT 99; BMI 56.9
--- OUTSIDE RECORDS SUMMARY | 2024-06-24 20:46 | XMS_ITS | CCD ---
Author Organization [facility] Care Team Providers Care Sulky Driver Name Role Phone DO Charbel Rodriguez Primary [...] Unavailable Charbel Rodriguez DO Primary Care Provider [phone] DO Charbel Rodriguez Primary Care Provider Ryan Rodriguez Attending Provider [phone] Ryan Rodriguez Admitting Unavailable Michael, Ryan Attending Unavailable Charbel Rodriguez Primary Care Unavailable VISCI, SONIA Jreez Attending Unavailable VISCI, SONIA Jerez Attending Unavailable [...] (1 source) Ethinyl Estradiol Drug Allergy 07-15-20 [facility] Latex (1 source) Latex Substance Allergy 07-15-20 23 Rash, rash,blisters [facility] Levonorgestrel (1 source) Levonorgestrel Drug Allergy 07-15-20 [facility] NSAIDs (1 source) Naproxen Drug Allergy 07-15-20 23 [facility] Phentermine (1 source) Phentermine Drug Allergy 07-15-20 23 chest pain/ elevated BP [facility] tomato allergenic extract (1 source) tomato allergenic extract Drug Allergy 07-15-20 stomach upset [facility] (20 sources) Latex; Translations: [Latex] Propensity to adverse reactions 07-07-20 Rash, Rash, Blisters, rash,blisters [facility] (12 sources) Naproxen; Translations: [NAPROXEN] Drug Allergy 08-01-20 [facility] (14 sources) Naproxen; Translations: [Aleve] Drug Allergy 11-25-19 [facility] Repository (13 sources) Seasonal allergy Propensity to adverse reactions Unknown [employer] [facility] Schedulicity Other (13 sources) Tomato Products Propensity to adverse reactions stomach upset [facility] Schedulicity Other (1 source) natural latex rubber Drug allergy (disorder) 09-04-20 [facility] Repository (8 sources) Seasonale Drug allergy Unknown [employer] [facility] Schedulicity Other (8 sources) Tomatoes Drug allergy stomach upset [facility] Schedulicity Other (5 sources) Phentermine Drug Allergy chest pain/ elevated BP [facility] Schedulicity Other (1 source) Ethinyl Estradiol Drug Allergy 07-15-20 [facility] Repository (1 source) Levonorgestrel Drug Allergy 07-15-20 [facility] Repository (1 source) Phentermine Drug Allergy 07-15-20 [facility] Repository (1 source) tomato allergenic extract Drug Allergy 07-15-20 [facility] Repository Medications Current Medications Medication Drug Class(es) Dates Sig (Normalized) Sig (Original) brompheniramine maleate 0.4 mg/ml / dextromethorphan hydrobromide 2 mg/ml / pseudoephedrine hydrochloride 6 mg/ml oral solution (5 sources) alpha-Adrenergic Agonist, Uncompetitive Q-uclwqv-K-aspartat e Receptor Antagonist, Sigma-1 Agonist Start: 12-07-19 23 take 10 mL by mouth every six hours Zdltqmpfg-Rikczyva-FU 30-2-10 MG/5ML 10 mL Orally every 6 [...] on above: Take 1 capsule by mo [facility] four times daily. cyclobenzaprine hydrochloride 5 mg [...] Comment on above: [facility] daily as needed. 1 in [...] Basophils (Bld) [#/Vol] 0.0 10 3/uL 0.0-0.1 [facility] Basophils/100 WBC Auto (Bld) on 04-13-2024 Basophils/100 WBC (Bld) 0.2 % 0.2-2.0 [facility] Buprenorphine [Presence] in Urineon 04-13-2024 Buprenorphine Ql (U) Negative NEGATIVE [facility] Comment on above: DRUG CLASS TEST SYST EM CUT-OFF CONCENTRATIONS ARE ASFOLLOWS:AMP (Amphetamine): 500 ng/mLBAR (Barbiturates): 200 ng/mLBZO (Benzodiazepines): 150 ng/mLBUP (Buprenorphine): 10 ng/mLCOC (Cocaine): 150 ng/mLmAMP (Methamphetamine): 500 ng/mLMTD (Methadone): 200 ng/mLOPI (Opiates): 100 ng/mLOXY (Oxycodone): 100 ng/mLPCP (Phencyclidine): 25 ng/mLTHC (Cannabinoids): 50 ng/mLTCA (Trycyclic Antidepressants): 300 ng/mL Eosinophils/100 WBC Auto (Bl d)on 04-13-2024 Eosinophils/100 WBC (Bld) 1.2 % 0.9-7.0 [facility] Erythrocyte distribution wid th Auto (RBC) [Ratio]on 04-13-2024 Erythrocyte distribution width (RBC) [Ratio] 14.7 % 11.0-15.0 [facility] Hematocrit Auto (Bld) [Volum e fraction]on 04-13-2024 Hematocrit (Bld) [Volume fraction] 31.2 % 36.0-48.0 [facility] Hemoglobin [Mass/volume] in Bloodon 04-13-2024 Hemoglobin (Bld) [Mass/Vol] 10.1 g/dL 12.0-16.0 [facility] Sung 04-13-2024 L Specimen: [id number] Received: 04/13/24 Status: SY Warren Num: [id number] Spec Type: Surgical Subm Dr: Ryan Rodriguez Tissues: A Fallopian Tube - Sterilization (BILATERAL FALLOPIAN TUBES) B Placenta - 3rd Trimester (Greater than 28 weeks) (PLACENTA) Procedures: HE/6, Gross/Micro L5, Gross/Micro L2 Age/ Patient Sex Location Account Attending Physician Edith Wells 28/F LABELL [id number] Ryan Rodriguez SPEC NUM: [id number] RECD: 04/13/24 STATUS: SY WARREN NUM: [id number] CIELO: 06/17/24- SUBM DR: Ryan Rodriguez ENTERED: 04/13/24-[address] [facility] [address]: Anna,Lab SPEC TYPE: Surgical DEPT: [...] amniotic fluid Repeat section, salpingectomy. ---- Specimen: [id number] Received: 04/13/24 Status: YS Warren Num: [id number] Spec Type: Surgical Subm Dr: Ryan Rodriguez Tissues: A Fallopian Tube - Sterilization (BILATERAL FALLOPIAN TUBES) B Placenta - 3rd Trimester (Greater than 28 weeks) (PLACENTA) Procedures: HE/6, Gross/Micro L5, Gross/Micro L2 ---- Patient: Edith Wells [id number] (Continued) ---- Specimen: [id number] Received: 04/13/24 (Continued) Signed (signature on file) Lashae Phipps MD 04/19/24 1544 ---- Specimen: [id number] Received: 04/13/24 Status: SY Warren Num: [id number] Spec Type: Surgical Subm Dr: Ryan Rodriguez Tissues: A Fallopian Tube - Sterilization (BILATERAL FALLOPIAN TUBES) B Placenta - 3rd Trimester (Greater than 28 weeks) (PLACENTA) Procedures: HE/6, Gross/Micro L5, Gross/Micro L2 ---- Patient: Edith Wells [id number] (Continued) ---- Specimen: [id number] Received: 04/13/24-1333 (Continued) Gross Description A. Received [...] luminal center lined by unremarkable calhoun mucosa. Transplant Surgeon sections of each tube are submitted in [...] adjacent (more content not included)... Normal [facility] Laboratory - Chemistry and C hemistry - challengeon 04-13-2024 Bilirubin Ql (U) Negative NEGATIVE [facility] Glucose (U) [Mass/Vol] Negative NEGATIVE [facility] Ketones Ql (U) TRACE mg/dL NEGATIVE [facility] pH (U) 7.0 [pH] 5.0-9.0 [facility] Specific gravity (U) [Rel density] 1.025 1.005-1.025 [facility] Urobilinogen Qn (U) 0.2 {Vasquez'U}/dL 0.2-1.0 [facility] Laboratory - Drug toxicology on 04-13-2024 Amphetamines Ql (U) Negative NEGATIVE [facility] Benzodiazepines Ql (U) Negative NEGATIVE [facility] Cocaine Ql (U) Negative NEGATIVE [facility] Opiates Ql (U) Negative NEGATIVE [facility] Phencyclidine Ql (U) Negative NEGATIVE [facility] Laboratory - Hematology and Cell countson 04-13-2024 Immature granulocytes/100 WBC (Bld) 1.1 % 0.0-0.5 [facility] Laboratory - Specimen inform ationon 04-13-2024 Appearance (U) CLEAR CLEAR [facility] Color (U) YELLOW YELLOW [facility] Laboratory - Urinalysison Amorphous sediment LM Ql (Urine sed) FEW [facility] Leukocyte esterase Test strip Ql (U) Negative NEGATIVE [facility] Mucus Ql (Urine sed) NONE SEEN NONE SEEN [facility] Nitrite Ql (U) Negative NEGATIVE [facility] Protein Ql (U) Negative NEG/TRACE [facility] Leukocytes [#/volume] correc zee for nucleated erythrocytes in Blood by Automated counon 04-13-2024 WBC corrected for nucl RBC Auto (Bld) [#/Vol] 12.9 10 3/uL 4.0-11.0 [facility] Lymphocytes Auto (Bld) [#/Vo l]on 04-13-2024 Lymphocytes (Bld) [#/Vol] 3.6 10 3/uL 1.2-3.8 [facility] Lymphocytes/100 WBC Auto (Bl d)on 04-13-2024 Lymphocytes/100 WBC (Bld) 27.5 % 20.5-60.0 [facility] MCH Auto (RBC) [Entitic mass ]on 04-13-2024 MCH (RBC) [Entitic mass] 29.5 pg 26.7-34.0 [facility] MCHC Auto (RBC) [Mass/Vol]on 04-13-2024 MCHC (RBC) [Mass/Vol] 32.4 g/dL 29.9-35.2 [facility] MCV Auto (RBC) [Entitic vol] on 04-13-2024 MCV (RBC) [Entitic vol] 91.2 fL 81.0-99.0 [facility] Methadone [Presence] in Urin e by Screen methodon 04-13-2024 Methadone Screen Ql (U) Negative NEGATIVE [facility] Monocytes Auto (Bld) [#/Vol] on 04-13-2024 Monocytes (Bld) [#/Vol] 0.7 10 3/uL 0.3-0.8 [facility] Monocytes/100 WBC Auto (Bld) on 04-13-2024 Monocytes/100 WBC (Bld) 5.7 % 1.7-12.0 [facility] Neutrophils Auto (Bld) [#/Vo l]on 04-13-2024 Neutrophils (Bld) [#/Vol] 8.3 10 3/uL 1.4-6.5 [facility] Neutrophils/100 WBC Auto (Bl d)on 04-13-2024 Neutrophils/100 WBC (Bld) 64.3 % 43.0-75.0 [facility] No Panel Informationon 04-13 Eosinophils # (Auto) 0.2 10 3/uL 0.0-0.7 [facility] Immature Granulocyte # (Auto) 0.14 10 3/uL 0.00-0.03 [facility] Urine Bacteria MODERATE #/HPF NONE SEEN [facility] Urine Barbiturates Screen Negative NEGATIVE [facility] Urine Culture Reflexed YES [facility] Urine Marijuana (THC) Screen Negative NEGATIVE [facility] Urine Methamphetamines Screen Negative NEGATIVE [facility] Urine Occult Blood Negative NEGATIVE [facility] Urine Other Casts NONE SEEN #/LPF NONE SEEN [facility] Urine Other Crystals Seen #/HPF None Seen [facility] Urine RBC 0-2 #/HPF 0-2 [facility] Urine Squamous Epithelial Cells FEW #/LPF NONE/RARE [facility] Urine WBC 0-2 #/HPF NONE SEEN [facility] Platelet mean volume Auto (B ld) [Entitic vol]on 04-13-2024 Platelet mean volume (Bld) [Entitic vol] 10.8 fL 9.5-13.5 [facility] Platelets Auto (Bld) [#/Vol] on 04-13-2024 Platelets (Bld) [#/Vol] 357 10 3/uL 150-450 [facility] RBC Auto (Bld) [#/Vol]on RBC (Bld) [#/Vol] 3.42 10 6/uL 4.20-5.40 [facility] Urine tricyclic antidepressa nt measurementon 04-13-2024 Tricyclic antidepressants (U) [Mass/Vol] Negative NEGATIVE [facility] oxyCODONE+oxyMORphone [Prese nce] in Urine by Screen methodon 04-13-2024 oxyCODONE+oxyMORphone Screen Ql (U) Negative NEGATIVE [facility] No Panel InformationOrdered By: Ryan Rodriguez on 03-31-2024 Group B Streptococcus Culture [facility] Glucose mean value [Mass/vol ume] in Blood Estimated from glycated hemoglobinon 03-16-2024 Average glucose Estimated from glycated hemoglobin (Bld) [Mass/Vol] 114 mg/dL [facility] Laboratory - Hematology and Cell countson 03-16-2024 HbA1c (Bld) [Mass fraction] 5.6 % 4.5-6.2 [facility] Comment on above: ADA RECOMMENDED LIMI T 4.0 - 6.0ADA THERAPEUTIC TARGET < 7.0ACTION SUGGESTED> 7.0 No Panel Informationon 03-16 Hepatitis C Interpretation Comment . [facility] Comment on above: Not infected with HC V unless early or acute infection issuspected (which may be delayed in an immunocompromisedindividual), or other evidence exists to indicate HCVinfection.Performed at: [facility] [place], [place] [id number] Director: Frankie Aguero PhD, Phone: [phone] Serum or plasma hepatitis C virus antibody signal/cutoff ratio by immunoassay (relation 03-16-2024 HCV Ab Signal/Cutoff IA [Rel units/Vol] Non-Reactive Non Reactive [facility] Basophils Auto (Bld) [#/Vol] on 03-11-2024 Basophils (Bld) [#/Vol] 0.0 10 3/uL 0.0-0.1 [facility] Basophils/100 WBC Auto (Bld) on 03-11-2024 Basophils/100 WBC (Bld) 0.1 % 0.2-2.0 [facility] Eosinophils/100 WBC Auto (Bl d)on 03-11-2024 Eosinophils/100 WBC (Bld) 0.6 % 0.9-7.0 [facility] Erythrocyte distribution wid th Auto (RBC) [Ratio]on 03-11-2024 Erythrocyte distribution width (RBC) [Ratio] 14.1 % 11.0-15.0 [facility] Hematocrit Auto (Bld) [Volum e fraction]on 03-11-2024 Hematocrit (Bld) [Volume fraction] 30.2 % 36.0-48.0 [facility] Hemoglobin [Mass/volume] in Bloodon 03-11-2024 Hemoglobin (Bld) [Mass/Vol] 9.9 g/dL 12.0-16.0 [facility] Laboratory - Chemistry and C hemistry - challengeon 03-11-2024 Chloride [Moles/Vol] 103 mmol/L 98-107 [facility] CO2 [Moles/Vol] 25.7 mmol/L 21.0-32.0 [facility] Potassium [Moles/Vol] 4.0 mmol/L 3.5-5.1 [facility] Sodium [Moles/Vol] 135 mmol/L 136-145 [facility] Bilirubin Ql (U) Negative NEGATIVE [facility] Glucose (U) [Mass/Vol] Negative NE[facility] Ketones Ql (U) TRACE mg/dL NEGATIVE [facility] pH (U) 7.5 [pH] 5.0-9.0 [facility] Specific gravity (U) [Rel density] 1.020 1.005-1.025 [facility] Urobilinogen Qn (U) 0.2 {Vasquez'U}/dL 0.2-1.0 [facility] Laboratory - Hematology and Cell countson 03-11-2024 Immature granulocytes/100 WBC (Bld) 0.7 % 0.0-0.5 [facility] Laboratory - Specimen inform ationon 03-11-2024 Appearance (U) CLEAR CLEAR [facility] Color (U) YELLOW YELLOW [facility] Laboratory - Urinalysison Leukocyte esterase Test strip Ql (U) Negative NEGATIVE [facility] Nitrite Ql (U) Negative NEGATIVE [facility] Protein Ql (U) TRACE mg/dL NEG/TRACE [facility] Leukocytes [#/volume] correc zee for nucleated erythrocytes in Blood by Automated counon 03-11-2024 WBC corrected for nucl RBC Auto (Bld) [#/Vol] 9.9 10 3/uL 4.0-11.0 [facility] Lymphocytes Auto (Bld) [#/Vo l]on 03-11-2024 Lymphocytes (Bld) [#/Vol] 2.9 10 3/uL 1.2-3.8 [facility] Lymphocytes/100 WBC Auto (Bl d)on 03-11-2024 Lymphocytes/100 WBC (Bld) 29.1 % 20.5-60.0 [facility] MCH Auto (RBC) [Entitic mass ]on 03-11-2024 MCH (RBC) [Entitic mass] 30.6 pg 26.7-34.0 [facility] MCHC Auto (RBC) [Mass/Vol]on 03-11-2024 MCHC (RBC) [Mass/Vol] 32.8 g/dL 29.9-35.2 [facility] MCV Auto (RBC) [Entitic vol] on 03-11-2024 MCV (RBC) [Entitic vol] 93.2 fL 81.0-99.0 [facility] Monocytes Auto (Bld) [#/Vol] on 03-11-2024 Monocytes (Bld) [#/Vol] 0.6 10 3/uL 0.3-0.8 [facility] Monocytes/100 WBC Auto (Bld) on 03-11-2024 Monocytes/100 WBC (Bld) 6.3 % 1.7-12.0 [facility] Neutrophils Auto (Bld) [#/Vo l]on 03-11-2024 Neutrophils (Bld) [#/Vol] 6.2 10 3/uL 1.4-6.5 [facility] Neutrophils/100 WBC Auto (Bl d)on 03-11-2024 Neutrophils/100 WBC (Bld) 63.2 % 43.0-75.0 [facility] No Panel Informationon 03-11 Eosinophils # (Auto) 0.1 10 3/uL 0.0-0.7 [facility] Immature Granulocyte # (Auto) 0.07 10 3/uL 0.00-0.03 [facility] Urine Microscopic Review NO [facility] Urine Occult Blood Negative NEGATIVE [facility] Platelet mean volume Auto (B ld) [Entitic vol]on 03-11-2024 Platelet mean volume (Bld) [Entitic vol] 9.9 fL 9.5-13.5 [facility] Platelets Auto (Bld) [#/Vol] on 03-11-2024 Platelets (Bld) [#/Vol] 345 10 3/uL 150-450 [facility] RBC Auto (Bld) [#/Vol]on RBC (Bld) [#/Vol] 3.24 10 6/uL 4.20-5.40 [facility] Serum or plasma anion gap de terminationon 03-11-2024 Anion gap [Moles/Vol] 10.3 mmol/L [facility] CNPNon 05-27-2023 CNPN Telephone (4CQ) EDITH WELLS ([id number]) 1995 F Date Time Provider Department 05/27/23 TESSA SANCHEZ 4CQ During your visit today, we recorded the following information about you: Glenis Gavin 05/27/2023 12:11 PM Signed Edith Wells is calling Tessa Sanchez MD today. Patient's therapist at [facility] is asking if she can continue PT but change it to 2 days on land and 0 days in water per week. Needs new order sent to [facility] in [place]. She did not have the fax number. [...] time off per provider's discretion. 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 Call her to inform when she can pick it up. Call cell number below. May leave a message. No chief complaint on file. Patient has been identified by name and birthdate. Duration of symptoms: Person calling: self Call patient at: on cell and , it is OK to leave message [phone] (home) [phone] (cell) Was an appointment scheduled: No Closing statement: Results or non-symptom based questions: Thank you for calling [facility], your call will be returned within the [...] - Fully Assessed Reason for Visit: Question [2470] Prescriptions as of 05/27/2023 - etodolac (LODINE-XL) [...] by LIZZETTE ADAMS RN on 05/27/23 Normal [facility] CNCOon 04-17-2023 CNCO Letter Text Normal [facility] CNOVon 04-17-2023 CNOV Office Visit (ORAVON ) EDITH WELLS ([id number]) 1995 F Date Time Provider Department 04/17/23 [...] Order(s):CONSULT TO PHYSICAL THERAPY [9032] Order #: [id number]: 1 FUTURE Prescriptions as of 04/18/2023 - [...] Encounter Status:Closed by TESSA SANCHEZ on 04/18/23 [facility] CNOVon 03-13-2023 CNOV Office Visit (ORAVON ) EDITH WELLS ([id number]) 1995 F Date Time Provider Department 03/13/23 [...] and is of normal mood and affect. [facility] 07/02/2022 Gait Cycle: Normal Yes, [...] records. This note was partially generated using [employer] voice recognition system, and there may be [...] Encounter Status:Closed by TESSA SANCHEZ on 03/13/23 [facility]28[facility]2023 [facility] Tele[facility] (ORAVON) EDITH WELLS ([id number]) 1995 F Date Time Provider Department 02/28/23 TESSA SANCHEZ During your visit today, we recorded the following information about you: Margy Contreras Pss 02/28/2023 4:09 PM Signed Patient wants to get physical therapy at [facility] in [place]. Has been approved by [facility] and she can now schedule. Asking for recent therapy order from Dr Sanchez be faxed to [facility] in [place] at [phone]. Lizzette Adams RN 03/01/2023 10:22 AM Signed [...] Status:Closed by LIZZETTE ADAMS RN on 03/01/23 [facility] 01-10-2023 YAN Telephone (ADRIANA) EDITH WELLS ([id number]) 1995 F Date Time Provider Department 01/10/23 [...] back to the office to update CALL [phone] Autumn Clayton 01/10/2023 12:07 PM Signed Edith [...] calling: self Call patient at: at home [phone] (home) [phone] (cell) Was an appointment scheduled: No Closing statement: Results or non-symptom based questions: Thank you for calling [facility], your call will be returned within the next business day. Lizzette Adams RN 01/11/2023 12:04 PM Signed Patient's note faxed today as requested Lizzette Noguera 02/08/2023 4:15 PM Signed Patient calling in about papers she received in the mail. She does not know what they are or what she needs to do with them. Please call her at [phone]. Lizzette Adams RN 02/11/2023 10:34 AM Signed [...] Reason for Visit: Return To Work Letter [8349] Prescriptions as of 02/11/2023 - etodolac (LODINE-XL) [...] Status:Closed by LIZZETTE ADAMS RN on 01/11/23 [facility]h 01-02-2023 CNOV Office Visit (ADRIANA ) EDITH WELLS ([id number]) 1995 F Date Time Provider Department 01/02/23 [...] records. This note was partially generated using [employer] voice recognition system, and there may be [...] Past Histories independently gathered by the clinical life support technician and the remaining scribed note accurately describes my personal service to the patient. Tessa Sanchez M.D. 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 - cyclobenzaprine (FLEXERIL) 5 (more content not included)... Normal [facility] XR ANKLE 3V AP/LAT/OBL RTon 01-02-2023 [...] malalignment is identified. Joint spaces are maintained. Mechanical Sound Technician: PSCB Transcribe Date/Time: Jan 02 2023 4:17P Dictated by : RC CIFUENTES MD This examination was interpreted and the report reviewed and electronically signed by: RC CIFUENTES MD on Jan 02 2023 4:18PM EST [id number] Normal [facility] XR ANKLE GENERAL 3V AP/LAT/O BL RIGHTon 01-02-2023 [facility] CNCOon 12-21-2022 CNCO Letter Text Normal [facility] CNPNon 12-21-2022 CNPN Telephone (ORAVON) EDITH WELLS ([id number]) 1995 F Date Time Provider Department 12/21/22 [...] Encounter Status:Closed by VINAY CORONA on 12/21/22 [facility] Shayy 12-19-2022 YAN Telephone (ORAVON) EDITH WELLS ([id number]) 1995 F Date Time Provider Department 12/19/22 TESSA SANCHEZ During your visit today, we recorded the following information about you: Kleley Catherine 12/19/2022 12:10 PM Signed Pt is [...] that prevented her form having PT. CALL [phone] Vinay Corona RN 12/21/2022 5:35 PM Signed This RN called and spoke with patient. Letter sent via [employer] she report she received it. 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 She was grateful for the call. [...] Encounter Status:Closed by VINAY CORONA on 12/21/22 [facility] CNOVon 11-14-2022 CNOV Office Visit (ORAVON ) PRISCILLAEDITH Woody ([id number]) 1995 F Date Time Provider Department 11/14/22 [...] Status:Closed by TESSA SANCHEZ on 11/14/22 Normal [facility] EBV EARLY ANTIGEN (IgG)on EBV Early Antigen Ab, IgG <9.0 Normal 0.0-8.9 [facility] Comment on above: Result Comment: Nega tive < 9.0 Equivocal 9.0 - 10.9 Positive >10.9 Performed By: #### E BVEARL #### [facility] [address] [place] [address] Dr. Judah Phipps LU-POSADAS VIRUS (EBV) AB PROFILEon 11-14-2022 EBV Ab VCA, IgG 370.0 U/mL Critically high 0.0-17.9 [facility] Comment on above: Result Comment: Nega tive <18.0 Equivocal 18.0 - 21.9 Positive >21.9 Performed By: #### E BVPROF #### [facility] [address] [place] [address] Dr. Judah Phipps EBV Ab VCA, IgM <36.0 Normal 0.0-35.9 [facility] Comment on above: Result Comment: Nega tive <36.0 Equivocal 36.0 - 43.9 Positive >43.9 Performed By: #### E BVPROF #### [facility] [address] [place] [address] Dr. Judah Phipps EBV Nuclear Antigen Ab, IgG 224.0 U/mL Critically high 0.0-17.9 [facility] Comment on above: Result Comment: Nega tive <18.0 Equivocal 18.0 - 21.9 Positive >21.9 Performed By: #### E BVPROF #### [facility] [address] [place], [place] [address] Dr. Judah Phipps Interpretation: Comment Normal [facility] Comment on above: Result Comment: EBV [...] EBNA. Performed By: #### E BVPROF #### [facility] [address] [place], [place] [address] Dr. Judah Phipps XR ANKLE 3V AP/LAT/OBL [...] dislocation. IMPRESSION: Expected postoperative findings as described. Mechanical Sound Technician: ANYA Transcribe Date/Time: Nov 14 2022 6:35P Dictated by : TINA VEGA MD This examination was interpreted and the report reviewed and electronically signed by: TINA VEGA MD on Nov 15 2022 6:27AM EST [id number] Normal [facility] XR ANKLE GENERAL 3V AP/LAT/O BL RIGHTon 11-14-2022 [facility] AMYLASEon 11-13-2022 Amylase [Catalytic activity/Vol] 42 U/L Normal 25-115 [facility] Comment on above: Performed By: #### L IPA, CMP, SYEDA, PREGQNT #### [facility] [address] [place] [address] Dr. Judah Phipps CBC AUTO DIFFon 11-13-2022 BASO # 0.0 103/ul Normal 0.0-0.1 [facility] Comment on above: Performed By: #### L IPA, CMP, SYEDA, PREGQNT #### [facility] [address] [place] [address] Dr. Judah Phipps Basophils/100 WBC (Bld) 0.3 % Normal 0.2-2.0 [facility] Comment on above: Performed By: #### L IPA, CMP, SYEDA, PREGQNT #### [facility] [address] [address] [address] Judah Phipps EO # 0.5 103/ul Normal 0.0-0.7 [facility] Comment on above: Performed By: #### L IPA, CMP, SYEDA, PREGQNT #### [facility] [address] [address] [address] Judah Phipps Eosinophils/100 WBC (Bld) 4.0 % Normal 0.9-7.0 [facility] Comment on above: Performed By: #### L IPA, CMP, SYEDA, PREGQNT #### [facility] [address] [place] [address] Dr. Judah Phipps Erythrocyte distribution width (RBC) [Ratio] 13.2 % Normal 11.0-15.0 [facility] Comment on above: Performed By: #### L IPA, CMP, SYEDA, PREGQNT #### [facility] [address] [place] [address] Dr. Judah Phipps Hematocrit (Bld) [Volume fraction] 37.2 % Normal 36.0-48.0 [facility] Comment on above: Performed By: #### L IPA, CMP, SYEDA, PREGQNT #### [facility] [address] [place] [address] Dr. Judah Phipps Hemoglobin (Bld) [Mass/Vol] 12.5 g/dL Normal 12.0-16.0 [facility] Comment on above: Performed By: #### L IPA, CMP, SYEDA, PREGQNT #### [facility] [address] [place] [address] Dr. Judah Phipps IG # 0.04 10e3/ul Critically high 0.00-0.03 [facility] Comment on above: Performed By: #### L IPA, CMP, SYEDA, PREGQNT #### [facility] [address] [place] [address] Dr. Judah Phipps IG % 0.3 % Normal 0.0-0.5 [facility] Comment on above: Performed By: #### L IPA, CMP, SYEDA, PREGQNT #### [facility] [address] [place] [address] Dr. Judah Phipps LYMPH # 4.8 103/ul Critically high 1.2-3.8 [facility] Comment on above: Performed By: #### L IPA, CMP, SYEDA, PREGQNT #### [facility] [address] [place] [address] Dr. Judah Phipps Lymphocytes/100 WBC (Bld) 39.9 % Normal 20.5-60.0 [facility] Comment on above: Performed By: #### L IPA, CMP, SYEDA, PREGQNT #### [facility] [address] [place] [address] Dr. Judah Phipps MANUAL DIFF REQ NO Normal [facility] Comment on above: Performed By: #### L IPA, CMP, SYEDA, PREGQNT #### [facility] [address] [place] [address] Dr. Judah Phipps MCH (RBC) [Entitic mass] 30.5 pg Normal 26.7-34.0 [facility] Comment on above: Performed By: #### L IPA, CMP, SYEDA, PREGQNT #### [facility] [address] [place] [address] Dr. Judah Phipps MCHC (RBC) [Mass/Vol] 33.6 g/dL Normal 29.9-35.2 [facility] Comment on above: Performed By: #### L IPA, CMP, SYEDA, PREGQNT #### [facility] [address] [place] [address] Dr. Judah Phipps MCV (RBC) [Entitic vol] 90.7 fL Normal 81.0-99.0 [facility] Comment on above: Performed By: #### L IPA, CMP, SYEDA, PREGQNT #### [facility] [address] [place] [address] Dr. Judah Phipps MONO # 0.7 103/ul Normal 0.3-0.8 [facility] Comment on above: Performed By: #### L IPA, CMP, SYEDA, PREGQNT #### [facility] [address] [place] [address] Dr. Judah Phipps Monocytes/100 WBC (Bld) 6.1 % Normal 1.7-12.0 [facility] Comment on above: Performed By: #### L IPA, CMP, SYEDA, PREGQNT #### [facility] [address] [place] [address] Dr. Judah Phipps NEUT # 5.9 103/ul Normal 1.4-6.5 [facility] Comment on above: Performed By: #### L IPA, CMP, SYEDA, PREGQNT #### [facility] [address] [place] [address] Dr. Judah Phipps Neutrophils/100 WBC (Bld) 49.4 % Normal 43.0-75.0 [facility] Comment on above: Performed By: #### L IPA, CMP, SYEDA, PREGQNT #### [facility] [address] [place] [address] Dr. Judah Phipps Platelet mean volume (Bld) [Entitic vol] 9.2 fL Critically low 9.5-13.5 [facility] Comment on above: Performed By: #### L IPA, CMP, SYEDA, PREGQNT #### [facility] [address] [place] [address] Dr. Judah Phipps PLT 408 103/ul Normal 150-450 [facility] Comment on above: Performed By: #### L IPA, CMP, SYEDA, PREGQNT #### [facility] [address] [address] [address] Judah Phipps RBC 4.10 106/ul Critically low 4.20-5.40 [facility] Comment on above: Performed By: #### L IPA, CMP, SYEDA, PREGQNT #### [facility] [address] [address] [address] Judah Phipps WBC 12.0 103/ul Critically high 4.0-11.0 [facility] Comment on above: Performed By: #### L IPA, CMP, SYEDA, PREGQNT #### [facility] [address] [place] [address] Dr. Judah Phipps LIPASEon 11-13-2022 Lipase [Catalytic activity/Vol] 161.0 U/L Normal 73.0-393.0 [facility] Comment on above: Performed By: #### L IPA, CMP, SYEDA, PREGQNT #### [facility] [address] [address] [address] Judah Phipps PREG QUANT HCGon 11-13-2022 HCG QUANT <1 Normal [facility] Comment on above: Performed By: #### L IPA, CMP, SYEDA, PREGQNT #### [facility] [address] [place] [address] Dr. Judah Phipps HCG RANGE SEE BELOW Normal [facility] Comment on above: Result Comment: 5-50 0.2-1 WEEK 50-500 1-2 WEEKS 100-5,000 2-3 WEEKS 500-10,000 3-4 WEEKS 1,000-50,000 4-5 WEEKS 10,000-100,000 5-6 WEEKS 15,000-200,000 6-8 WEEKS 10,000-100,000 2-3 MONTHS Performed By: #### L IPA, CMP, SYEDA, PREGQNT #### [facility] [address] [address] [address] Judah Phipps PROF 14(COMP METB)on 01-17-2 023 Albumin [Mass/Vol] 3.6 g/dL Normal 3.4-5.0 [facility] Comment on above: Performed By: #### L IPA, CMP, SYEDA, PREGQNT #### [facility] [address] [address] [address] Judah Phipps Albumin/Globulin [Mass ratio] 1.1 {ratio} Normal [facility] Comment on above: Performed By: #### L IPA, CMP, SYEDA, PREGQNT #### [facility] [address] [address] [address] Judah Phipps ALP [Catalytic activity/Vol] 64 U/L Normal 46-116 [facility] Comment on above: Performed By: #### L IPA, CMP, SYEDA, PREGQNT #### [facility] [address] [place] [address] Dr. Judah Phipps ALT [Catalytic activity/Vol] 9 U/L Critically low 14-59 [facility] Comment on above: Performed By: #### L IPA, CMP, SYEDA, PREGQNT #### [facility] [address] [address] [address] Judah Phipps Anion gap [Moles/Vol] 11.3 mmol/L Normal [facility] Comment on above: Performed By: #### L IPA, CMP, SYEDA, PREGQNT #### [facility] [address] [address] [address] Judah Phipps AST [Catalytic activity/Vol] 10 U/L Critically low 15-37 [facility] Comment on above: Performed By: #### L IPA, CMP, SYEDA, PREGQNT #### [facility] [address] [address] [address] Judah Phipps Bilirubin [Mass/Vol] 0.2 mg/dL Normal 0.2-1.0 [facility] Comment on above: Performed By: #### L IPA, CMP, SYEDA, PREGQNT #### [facility] [address] [place] [address] Dr. Judah Phipps Calcium [Mass/Vol] 8.9 mg/dL Normal 8.5-10.1 [facility] Comment on above: Performed By: #### L IPA, CMP, SYEDA, PREGQNT #### [facility] [address] [address] [address] Judah Phipps Chloride [Moles/Vol] 102 mmol/L Normal 98-107 [facility] Comment on above: Performed By: #### L IPA, CMP, SYEDA, PREGQNT #### [facility] [address] [address] [address] Judah Phipps CO2 [Moles/Vol] 28.5 mmol/L Normal 21.0-32.0 [facility] Comment on above: Performed By: #### L IPA, CMP, SYEDA, PREGQNT #### [facility] [address] [place] [address] Dr. Judah Phipps Creatinine [Mass/Vol] 0.65 mg/dL Normal 0.55-1.02 [facility] Comment on above: Performed By: #### L IPA, CMP, SEYDA, PREGQNT #### [facility] [address] [place] [address] Dr. Judah Phipps EGFR-AF CENTRAL AFRICAN >60 Normal >=60 [facility] Comment on above: Performed By: #### L IPA, CMP, SYEDA, PREGQNT #### [facility] [address] [place] [address] Dr. Judah Phipps EGFR-NON AF CENTRAL AFRICAN >60 Normal >=60 [facility] Comment on above: Performed By: #### L IPA, CMP, SYEDA, PREGQNT #### [facility] [address] [address] [address] Judah Phipps Globulin (S) [Mass/Vol] 3.4 g/dL Normal [facility] Comment on above: Performed By: #### L IPA, CMP, SYEDA, PREGQNT #### [facility] [address] [place] [address] Dr. Judah Phipps Glucose [Mass/Vol] 100 mg/dL Normal 74-106 [facility] Comment on above: Performed By: #### L IPA, CMP, SYEDA, PREGQNT #### [facility] [address] [address] [address] Judah Phipps Potassium [Moles/Vol] 3.8 mmol/L Normal 3.5-5.1 [facility] Comment on above: Performed By: #### L IPA, CMP, SYEDA, PREGQNT #### [facility] [address] [place] [address] Dr. Judah Phipps Protein [Mass/Vol] 7.0 g/dL Normal 6.4-8.2 [facility] Comment on above: Performed By: #### L IPA, CMP, SYEDA, PREGQNT #### [facility] [address] [place] [address] Dr. Judah Phipps Sodium [Moles/Vol] 138 mmol/L Normal 136-145 [facility] Comment on above: Performed By: #### L IPA, CMP, SYEDA, PREGQNT #### [facility] [address] [place] [address] Dr. Judah Phipps Urea nitrogen [Mass/Vol] 15.0 mg/dL Normal 7.0-18.0 [facility] Comment on above: Performed By: #### L IPA, CMP, SYEDA, PREGQNT #### [facility] [address] [place] [address] Dr. Judah Phipps Urea nitrogen/Creatinine [Mass ratio] 23.1 mg/mg Normal [facility] Comment on above: Performed By: #### L IPA, CMP, SYEDA, PREGQNT #### [facility] [address] [place] [address] Dr. Judah Phipps RESPIRATORY PANEL PLUSon Adenovirus Not detected Normal NOT DETECTED [facility] Comment on above: Performed By: #### R SPLUS #### [facility] [address] [place] [address] Dr. Judah Phipps B. Parapertusis Not detected Normal NOT DETECTED [facility] Comment on above: Performed By: #### R SPLUS #### [facility] [address] [place] [address] Dr. Judah Dick. Pertussis Not detected Normal NOT DETECTED [facility] Comment on above: Performed By: #### R SPLUS #### [facility] [address] [place] [address] Dr. Judah Phipps Chlamydia Pneumoniae Not detected Normal NOT DETECTED [facility] Comment on above: Performed By: #### R SPLUS #### [facility] [address] [place] [address] Dr. Judah Phipps Coronavirus 229E Not detected Normal NOT DETECTED [facility] Comment on above: Performed By: #### R SPLUS #### [facility] [address] [place] [address] Dr. Judah Phipps Coronavirus HKU1 Not detected Normal NOT DETECTED [facility] Comment on above: Performed By: #### R SPLUS #### [facility] [address] [place] [address] Dr. Judah Phipps Coronavirus NL63 Not detected Normal NOT DETECTED [facility] Comment on above: Performed By: #### R SPLUS #### [facility] [address] [place] [address] Dr. Judah Phipps Coronavirus OC43 Not detected Normal NOT DETECTED [facility] Comment on above: Performed By: #### R SPLUS #### [facility] [address] [place] [address] Dr. Judah Phipps Influenza A H1 2009 Not detected Normal NOT DETECTED [facility] Comment on above: Performed By: #### R SPLUS #### [facility] [address] [place] [address] Dr. Judah Phipps Influenza A H3 Not detected Normal NOT DETECTED [facility] Comment on above: Performed By: #### R SPLUS #### [facility] [address] [place] [address] Dr. Judah Phipps Influenza B Not detected Normal NOT DETECTED [facility] Comment on above: Performed By: #### R SPLUS #### [facility] [address] [place] [address] Dr. Judah Phipps Metapneumovirus Not detected Normal NOT DETECTED [facility] Comment on above: Performed By: #### R SPLUS #### [facility] [address] [place] [address] Dr. Judah Phipps Mycoplas. Pneumoniae Not detected Normal NOT DETECTED [facility] Comment on above: Performed By: #### R SPLUS #### [facility] [address] [place] [address] Dr. Judah Phipps Parainfluenza 1 Not detected Normal NOT DETECTED [facility] Comment on above: Performed By: #### R SPLUS #### [facility] [address] [place] [address] Dr. Judah Phipps Parainfluenza 2 Not detected Normal NOT DETECTED [facility] Comment on above: Performed By: #### R SPLUS #### [facility] [address] [place] [address] Dr. Judah Phipps Parainfluenza 3 Not detected Normal NOT DETECTED [facility] Comment on above: Performed By: #### R SPLUS #### [facility] [address] [place] [address] Dr. Judah Phipps Parainfluenza 4 Not detected Normal NOT DETECTED [facility] Comment on above: Performed By: #### R SPLUS #### [facility] [address] [place] [address] Dr. Judah Phipps Rhino/Enterovirus Not detected Normal NOT DETECTED [facility] Comment on above: Performed By: #### R SPLUS #### [facility] [address] [place] [address] Dr. Judah Phipps RP2 Header 1 RESPIRATORY PANEL: VIRUSES Normal [facility] Comment on above: Performed By: #### R SPLUS #### [facility] [address] [place] [address] Dr. Judah Phipps RP2 Header 2 RESPIRATORY PANEL: BACTERIA Normal [facility] Comment on above: Performed By: #### R SPLUS #### [facility] [address] [place] [address] Dr. Judah Phipps RSV Not detected Normal NOT DETECTED [facility] Comment on above: Performed By: #### R SPLUS #### [facility] [address] [place] [address] Dr. Judah Phipps SARS-CoV-2 (COVID-19) RNA HAROLDO+probe Ql (Unsp spec) Not detected Normal NOT DETECTED [facility] Comment on above: Performed By: #### R SPLUS #### [facility] [address] [place] [address] Dr. Judah Phipps CNOVon 10-10-2022 CNOV Office Visit (ORAVON ) EDITH WELLS ([id number]) 1995 F Date Time Provider Department 10/10/22 [...] Encounter Status:Closed by TESSA [facility] (JALILAVON) EDITH WELLS ([id number]) 1995 F Date Time Provider Department 09/26/22 TESSA SANCHEZ During your visit today, we recorded the following information about you: Rita Nitin [facility] 09/26/2022 11:18 AM Signed Patient requesting to speak with provider or staff in regards to right leg pain. She is having pain from her toes up to her knee. Her right ankle surgery was 08/28/22 and questions if pain is normal? Patient is to start therapy today at 6 pm. Patient requesting a return call through #[phone] or #[phone]. The second number is her boyfriends line, Elias. Patient gives okay to leave message with Elias if needed. Please advise. Lizzette Adams RN 09/28/2022 2:23 PM Signed I spoke with Kathie on 09/26/22. Lizzette Adams RN Allergies As of Date: 09/26/2022 (No Known Allergies) Date Reviewed: 09/12/2022 Reviewed by: Lizzette Adams RN - Fully Assessed Reason for Visit: Patient Question [9717] Prescriptions as of 09/28/2022 - predniSONE (DELTASONE) [...] Status:Closed by LIZZETTE ADAMS RN on 09/28/22 [facility] CNOVon 09-12-2022 CNOV Office Visit (ORAVON ) PRISCILLAEDITH ([id number]) 1995 F Date Time Provider Department 09/12/22 [...] right talus [M93.271] Order(s):CONSULT TO PHYSICAL THERAPY [9030] Order #: [id number]: 1 FUTURE Prescriptions as of 09/12/2022 - [...] Encounter Status:Closed by TESSA SANCHEZ on 09/12/22 [facility] CNOV Office Visit (ORAVON ) EDITH WELLS ([id number]) 1995 F Date Time Provider Department 09/12/22 [...] in Care of boot.. Alfred Griffith Beeper: [id number] Allergies As of Date: 09/12/2022 (No Known [...] Encounter Status:Closed by ALFRED KEARNS on 09/12/22 [facility] 09-03-2022 [facility] Telephone (JALILAVON) EDITH WELLS ([id number]) 1995 F Date Time Provider Department 09/03/22 [...] Status:Closed by AMPARO GUILLORY RN on 09/14/22 [facility] EDITH WELL[facility] ([id number]) 1995 F Date Time Provider Department 09/02/22 [...] Fully Assessed Reason for Visit: Patient Question [5467] Prescriptions as of 09/02/2022 - acetaminophen (TYLENOL) [...] Status:Closed by EYAD SHELBY on 09/02/22 Normal [facility] CNNURSEon 08-29-2022 CNNURSE Nurse Visit (ORAVGOLDIE) EDITH WELLS ([id number]) 1995 F Date Time Provider Department 08/29/22 3:45 PM NURSE ORTH [facility] KATHRYN WRIGHT During your visit [...] Status:Closed by LIZZETTE ADAMS RN on 09/03/22 [facility] CNOVon 08-29-2022 CNOV Office Visit (ORAVON ) EDITH WELLS ([id number]) 1995 F Date Time Provider Department 08/29/22 3:00 PM CAST TECH AGNES WRIGHT During your visit today, we recorded the following information about you: Alfredconcha Campo Cast 08/29/2022 3:44 PM Signed PT ASSESSMENT - CASTING ROOM Edith presents for Application of cast. Applied short cast: to Right leg non-weight bearing Patient has been instructed in Care of cast.. Alfred Campo Cast Beeper: [id number] Allergies As of Date: 08/29/2022 (No Known [...] Status:Closed by ALFRED KEARNS on 08/29/22 Normal [facility] ANES POSTPROC EVALon 022 ANES POSTPROC EVAL HNO ID: [id number] Author: Mike Alcantar MD Service: Anesthesiology Author Type: Anesthesiologist Type: Anesthesia Postprocedure Evaluation Filed: 08/28/2022 1:05 PM Note Text: POST ANESTHESIA EVALUATION NOTE : 1995 Procedure Summary Date: 08/28/22 Room / Location: [address] Anesthesia Start: 1029 Anesthesia Stop: 1149 [...] August 28, 2022 TIME: 1:04 PM CSN: [id number] [facility] ANES PRE-OPon 08-28-2022 ANES PRE-OP HNO ID: [id number] Author: Mike Alcantar MD Service: Anesthesiology Author Type: Anesthesiologist Type: Anesthesia Preprocedure Evaluation Filed: 08/28/2022 9:33 AM Note Text: ANESTHESIOLOGY DAY OF SURGERY NOTE : 1995 Procedure Information Date/Time: 08/28/22 1000 Procedure: ARTHROSCOPY ANKLE EXCISION 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) Location: [address] / [facility] Surgeons: Tessa Sanchez MD Estimated body [...] August 28, 2022 TIME: 9:32 AM CSN: [id number] [facility] OPERATIVE NOon 08-28-2022 OPERATIVE NO HNO ID: [id number] Author: Tessa Sanchez MD Service: Orthopaedic Surgery Author Type: Physician Type: Operative Report Filed: 08/28/2022 1:09 PM Note Text: OPERATIVE REPORT LOG ID: [id number] Surgery Date: 08/28/2022 Incision/Procedure Start Time: 11:01 AM Incision Close/Procedure End Time: 11:32 AM Procedure Performed: Procedure(s) (LRB): ARTHROSCOPY ANKLE EXCISION OSTEOCHONDRAL DEFECT MEDIAL TALUS Microfracture of talus Synovectomy Surgeon monitored fluoroscopy Surgeon(s)/Procedurali st(s) and Information Assurance Analyst(s): Surgeon(s) and Role: * Tessa Sanchez MD - Primary Physician Information Assurance Analyst: Mercedes Gale PA-C, was essential in patient [...] August 28, 2022 TIME: 1:04 PM PHONE: [phone] Normal [facility] CBC panel Auto (Bld)on 08-24 Erythrocyte distribution width (RBC) [Ratio] 13.3 % Normal 11.5-15.0 [facility] Comment on above: Order Comment: Speci joy Type: BLOOD SPECIMENOrdering Facility: [facility] Address: [address] [place] [address] Performed By: #### 5 8410-2 ####[facility] LABIA [id number] [place] [address] Hematocrit (Bld) [Volume fraction] 37.6 % Normal 36.0-46.0 [facility] Comment on above: Order Comment: Getachew hamilton Type: BLOOD SPECIMENOrdering Facility: [facility] Address: [address] [place] [address] Performed By: #### 5 8410-2 ####[facility] LABCLIA [id number] [place] [address] Hemoglobin (Bld) [Mass/Vol] 12.4 g/dL Normal 11.5-15.5 [facility] Comment on above: Order Comment: Wendyi men Type: BLOOD SPECIMENOrdering Facility: [facility] Address: [address] [place] [address] Performed By: #### 5 8410-2 ####[facility] LABCLIA [id number] [place] [address] MCH (RBC) [Entitic mass] 30.4 pg Normal 26.0-34.0 [facility] Comment on above: Order Comment: Speci men Type: BLOOD SPECIMENOrdering Facility: [facility] Address: [address] [place] [address] Performed By: #### 5 8410-2 ####[facility] LABCLIA [id number] [place] [address] MCHC (RBC) [Mass/Vol] 33.0 g/dL Normal 30.5-36.0 [facility] Comment on above: Order Comment: Speci men Type: BLOOD SPECIMENOrdering Facility: [facility] Address: [address] [place] [address] Performed By: #### 5 8410-2 ####[facility] LABIA [id number] [place] [address] MCV (RBC) [Entitic vol] 92.2 fL Normal 80.0-100.0 [facility] Comment on above: Order Comment: Speci men Type: BLOOD SPECIMENOrdering Facility: [facility] Address: [address] [place] [address] Performed By: #### 5 8410-2 ####[facility] LABCLIA [id number] [place], [place] [address] Nucleated RBC (Bld) [#/Vol] 10*3/uL Normal <0.01 [facility] Comment on above: Order Comment: Speci men Type: BLOOD SPECIMENOrdering Facility: [facility] Address: [address] [place] [address] Performed By: #### 5 8410-2 ####[facility] LABIA [id number] [place] [address] Platelet mean volume (Bld) [Entitic vol] 9.3 fL Normal 9.0-12.7 [facility] Comment on above: Order Comment: Speci men Type: BLOOD SPECIMENOrdering Facility: [facility] Address: [address] [place] [address] Performed By: #### 5 8410-2 ####[facility] LABCLIA [id number] [place] [address] Platelets (Bld) [#/Vol] 386 10*3/uL Normal 150-400 [facility] Comment on above: Order Comment: Speci men Type: BLOOD SPECIMENOrdering Facility: [facility] Address: [address] [place] [address] Performed By: #### 5 8410-2 ####[facility] LABIA [id number] [place] [address] RBC (Bld) [#/Vol] 4.08 10*6/uL Normal 3.90-5.20 [facility] Comment on above: Order Comment: Speci men Type: BLOOD SPECIMENOrdering Facility: [facility] Address: [address] [place] [address] Performed By: #### 5 8410-2 ####[facility] LABIA [id number] [place] [address] WBC (Bld) [#/Vol] 8.69 10*3/uL Normal 3.70-11.00 [facility] Comment on above: Order Comment: Speci men Type: BLOOD SPECIMENOrdering Facility: [facility] Address: [address] [place] [address] Performed By: #### 5 8410-2 ####[facility] LABIA [id number] [place] [address] Erythrocyte distribution width (RBC) [Ratio] 13.3 % 11.5 - 15.0 % [facility] Hematocrit (Bld) [Volume fraction] 37.6 % 36.0 - 46.0 % [facility] Hemoglobin (Bld) [Mass/Vol] 12.4 g/dL 11.5 - 15.5 g/dL [facility] MCH (RBC) [Entitic mass] 30.4 pg 26.0 - 34.0 pg [facility] MCHC (RBC) [Mass/Vol] 33.0 g/dL 30.5 - 36.0 g/dL [facility] MCV (RBC) [Entitic vol] 92.2 fL 80.0 - 100.0 fL [facility] Nucleated RBC (Bld) [#/Vol] <0.01 k/uL [facility] Platelet mean volume (Bld) [Entitic vol] 9.3 fL 9.0 - 12.7 fL [facility] Platelets (Bld) [#/Vol] 386 10*3/uL 150 - 400 k/uL [facility] RBC (Bld) [#/Vol] 4.08 10*6/uL 3.90 - 5.2 0 m/uL [facility] WBC (Bld) [#/Vol] 8.69 10*3/uL 3.70 - 11. 00 k/uL [facility] Basic metabolic 2000 panelon 08-15-2022 Anion gap [Moles/Vol] 8 mmol/L Low 07-15 [facility] Comment on above: Order Comment: Speci men Type: BLOOD SPECIMENOrdering Facility: [facility] Address: [address] [place] [address] Performed By: #### 2 4321-2 ####[facility] LABCLIA [id number] [place] [address] Calcium [Mass/Vol] 9.4 mg/dL Normal 8.5-10.2 [facility] Comment on above: Order Comment: Speci men Type: BLOOD SPECIMENOrdering Facility: [facility] Address: [address] [address] Performed By: #### 2 4321-2 ####[facility] LABCLIA [id number] [place] [address] Chloride [Moles/Vol] 104 mmol/L Normal 97-105 [facility] Comment on above: Order Comment: Speci men Type: BLOOD SPECIMENOrdering Facility: [facility] Address: [address] [address] Performed By: #### 2 4321-2 ####[facility] LABCLIA [id number] [place] [address] CO2 [Moles/Vol] 25 mmol/L Normal 22-30 [facility] Comment on above: Order Comment: Speci men Type: BLOOD SPECIMENOrdering Facility: [facility] Address: [address] [place] [address] Performed By: #### 2 4321-2 ####[facility] LABCLIA [id number] [place] [address] Creatinine [Mass/Vol] 0.60 mg/dL Normal 0.58-0.96 [facility] Comment on above: Order Comment: Speci men Type: BLOOD SPECIMENOrdering Facility: [facility] Address: [address] [place] [address] Performed By: #### 2 4321-2 ####[facility] LABCLIA [id number] [place] [address] ESTIMATED GLOMERULAR FILTRATION RATE 126 mL/min/1.73m??? Normal >=60 [facility] Comment on above: Order Comment: Speci men Type: BLOOD SPECIMENOrdering Facility: [facility] Address: [address] [place] [address] Result Comment: Brandy mated Glomerular Filtration Rate [...] actual GFR. Performed By: #### 2 4321-2 ####[facility] LABCLIA [id number] [place] [address] Glucose [Mass/Vol] 109 mg/dL High 74-99 [facility] Comment on above: Order Comment: Speci men Type: BLOOD SPECIMENOrdering Facility: [facility] Address: [address] [place] [address] Result Comment: The [place] Diabetes Association (ADA) provides guidance for cutoff [...] Standards of Medical Care in Diabetes 2016, [place] [employer]. Diabetes Care. 2016.39(Suppl 1). Performed By: #### 2 4321-2 ####[facility] LABCLIA [id number] [place] [address] Potassium [Moles/Vol] 3.8 mmol/L Normal 3.7-5.1 [facility] Comment on above: Order Comment: Speci men Type: BLOOD SPECIMENOrdering Facility: [facility] Address: [address] [place] [address] Performed By: #### 2 4321-2 ####[facility] LABCLIA [id number] [place] [address] Sodium [Moles/Vol] 137 mmol/L Normal 136-144 [facility] Comment on above: Order Comment: Speci men Type: BLOOD SPECIMENOrdering Facility: [facility] Address: [address] [address] Performed By: #### 2 4321-2 ####[facility] LABCLIA [id number] [place] [address] Urea nitrogen [Mass/Vol] 20 mg/dL Normal 7-21 [facility] Comment on above: Order Comment: Speci men Type: BLOOD SPECIMENOrdering Facility: [facility] Address: [address] [address] Performed By: #### 2 4321-2 ####[facility] LABCLIA [id number] [place] [address] CBC panel Auto (Bld)on 08-15 Erythrocyte distribution width (RBC) [Ratio] 13.5 % Normal 11.5-15.0 [facility] Comment on above: Order Comment: Speci men Type: BLOOD SPECIMENOrdering Facility: [facility] Address: [address] [place] [address] Performed By: #### 5 8410-2 ####[facility] LABCLIA [id number] [place] [address] Hematocrit (Bld) [Volume fraction] 39.9 % Normal 36.0-46.0 [facility] Comment on above: Order Comment: Speci men Type: BLOOD SPECIMENOrdering Facility: [facility] Address: [address] [place] [address] Performed By: #### 5 8410-2 ####[facility] LABCLIA [id number] [place] [address] Hemoglobin (Bld) [Mass/Vol] 13.4 g/dL Normal 11.5-15.5 [facility] Comment on above: Order Comment: Speci men Type: BLOOD SPECIMENOrdering Facility: [facility] Address: [address] [place] [address] Performed By: #### 5 8410-2 ####[facility] LABCLIA [id number] [place] [address] MCH (RBC) [Entitic mass] 30.7 pg Normal 26.0-34.0 [facility] Comment on above: Order Comment: Speci men Type: BLOOD SPECIMENOrdering Facility: [facility] Address: [address] [place] [address] Performed By: #### 5 8410-2 ####[facility] LABCLIA [id number] [place] [address] MCHC (RBC) [Mass/Vol] 33.6 g/dL Normal 30.5-36.0 [facility] Comment on above: Order Comment: Speci men Type: BLOOD SPECIMENOrdering Facility: [facility] Address: [address] [place], [place] [address] Performed By: #### 5 8410-2 ####[facility] LABCLIA [id number] [place] [address] MCV (RBC) [Entitic vol] 91.5 fL Normal 80.0-100.0 [facility] Comment on above: Order Comment: Speci men Type: BLOOD SPECIMENOrdering Facility: [facility] Address: [address] [place], [place] [address] Performed By: #### 5 8410-2 ####[facility] LABCLIA [id number] [place] [address] Nucleated RBC (Bld) [#/Vol] 10*3/uL Normal <0.01 [facility] Comment on above: Order Comment: Speci men Type: BLOOD SPECIMENOrdering Facility: [facility] Address: [address] [place], [place] [address] Performed By: #### 5 8410-2 ####[facility] LABIA [id number] [place] [address] Platelet mean volume (Bld) [Entitic vol] 9.2 fL Normal 9.0-12.7 [facility] Comment on above: Order Comment: Speci men Type: BLOOD SPECIMENOrdering Facility: [facility] Address: [address] [place], [place] [address] Performed By: #### 5 8410-2 ####[facility] LABIA [id number] [place] [address] Platelets (Bld) [#/Vol] 409 10*3/uL High 150-400 [facility] Comment on above: Order Comment: Speci men Type: BLOOD SPECIMENOrdering Facility: [facility] Address: [address] [place], [place] [address] Performed By: #### 5 8410-2 ####[facility] LABCLIA [id number] [place] [address] RBC (Bld) [#/Vol] 4.36 10*6/uL Normal 3.90-5.20 [facility] Comment on above: Order Comment: Speci men Type: BLOOD SPECIMENOrdering Facility: [facility] Address: [address] [place], [place] [address] Performed By: #### 5 8410-2 ####[facility] LABCLIA [id number] [place] [address] WBC (Bld) [#/Vol] 16.45 10*3/uL High 3.70-11.00 [facility] Comment on above: Order Comment: Speci men Type: BLOOD SPECIMENOrdering Facility: [facility] Address: [address] [place] [address] Performed By: #### 5 8410-2 ####[facility] LABCLIA [id number] [place] [address] Shayy 08-15-2022 YAN Telephone (BRENT) EDITH WELLS ([id number]) 1995 F Date Time Provider Department 08/15/22 TESSA SANCHEZ During your visit today, we recorded the following information about you: Kasi Mathur PA-C 08/15/2022 9:48 AM Signed Good morning Dr. 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 She had her pre-op labs [...] you for your time, Kasi Mathur PA-C [facility] Kasi Mathur PA-C 08/16/2022 8:38 AM Signed [...] unspecified type [D72.829] Order(s):CBC [CB] Order #: [id number] FUTURE Prescriptions as of 08/24/2022 - predniSONE [...] Status:Closed by KASI MATHUR on 08/24/22 [facility] H[facility] PHYSICALon 2 HISTORY PHYSICAL HNO ID: [id number] Author: Kasi Mathur PA-C Service: ? Author Type: Physician Information Assurance Analyst Type: HANDP Filed: 08/24/2022 1:26 PM Note [...] fevers. Neuro: No history of TIA's, stroke, GENER[employer] tumor, impaired sensorium, hemiplegia, paraplegia or quadraplegia. [...] episode)- no further syncope, Negative for Recent [place], CAD, Chest Pain, CHF, Valvular Heart Disease, DVT/PE, edema, orthopnea, further syncope, palpitations GI: Positive for GERD - takes TUMS prn, Negative for Nausea, Vomiting, Abdominal pain, Hepatitis, Pancreatitis : No history of dysuria, frequency or incontinence,, stones or chronic kidney disease [employer]: Negative for abnormal vaginal bleeding, abnormal vaginal [...] normal respiratory (more content not included)... Normal [facility] CNCOon 2022 CNCO Letter Text Normal [facility] CNOVon 2022 CNOV Office Visit (ORAVON ) EDITH WELLS ([id number]) 1995 F Date Time Provider Department 08/08/22 [...] anticipated outc (more content not included)... Normal [facility] XR LSPINE 2_3 VIEWSon 2021 XR [...] CHARBEL TAPIA Date: 2022-08-01 20:44 Normal [facility] Covid-19 PCR (CVDTB)on SARS-CoV-2 (COVID-19) RNA HAROLDO+probe Ql (Unsp spec) Not detected Normal NOT DETECTED [facility] Comment on above: Result Comment: When diagnostic [...] for this test is supported by the Tool Or Die Drawing Checker of Health and Human Service's declaration that [...] #### L IPA, CMP, SYEDA, PREGQNT #### [facility] [address] [place] [address] Dr. Judah Phipps GROUP A STREP CULTUREon S. pyogenes Ag Ql (Unsp spec) Culture Observations: NEGATIVE FOR GROUP A STREPTOCOCCUS. Normal [facility] Comment on above: Performed By: #### G RASTCX, SSCRN #### [facility] [address] [address] [address] Judah Phipps STREPT SCREENon 06-28-2022 STREP SCREEN A Negative Normal NEGATIVE [facility] Comment on above: Performed By: #### G RASTCX, SSCRN #### [facility] [address] [place] [address] Dr. Judah Phipps XR Ankle Complete Righton [...] by Kristi Olguin on 05/07/2022 1503 Normal [facility] XR Spine Lumbar 4+ Views*on 05-07-2022 [...] by Kristi Olguin on 05/07/2022 1453 Normal [facility] Vital Signs Date Time Vital Sign Value Performing Clinician Facility 05-08-2023 09:30-0400 Body height 163.19 cm Charbel Rodriguez Other [facility] Other 05-08-2023 09:30-0400 Body mass index (BMI) [Ratio] 46.15 kg/m2 Charbel Rodriguez Other [facility] Other 05-08-2023 09:30-0400 Body temperature 98.3 [degF] Charbel Rodriguez Other [facility] Other 05-08-2023 09:30-0400 Body weight 122.93 kg Charbel Rodriguez Other [facility] Other 05-08-2023 09:30-0400 Diastolic blood pressure 84 mm[Hg] Charbel Rodriguez Other [facility] Other 05-08-2023 09:30-0400 Respiratory rate 18 /min Charbel Rodriguez Other [facility] Other 05-08-2023 09:30-0400 SaO2% (BldA) [Mass fraction] 98 % Charbel Rodriguez Other [facility] Other 05-08-2023 09:30-0400 Systolic blood pressure 130 mm[Hg] Charbel Rodriguez Other [facility] Other 04-12-2023 10:50-0400 Body height 163.19 cm Charbel Rodriguez Other [facility] Other 04-12-2023 10:50-0400 Body mass index (BMI) [Ratio] 45.47 kg/m2 Charbel Rodriguez Other [facility] Other 04-12-2023 10:50-0400 Body temperature 98.8 [degF] Charbel Rodriguez Other [facility] Other 04-12-2023 10:50-0400 Body weight 121.11 kg Charbel Rodriguez Other [facility] Other 04-12-2023 10:50-0400 Diastolic blood pressure 84 mm[Hg] Charbel Rodriguez Other [facility] Other 04-12-2023 10:50-0400 Respiratory rate 20 /min Charbel Rodriguez Other [facility] Other 04-12-2023 10:50-0400 SaO2% (BldA) [Mass fraction] 98 % Charbel Rodriguez Other [facility] Other 04-12-2023 10:50-0400 Systolic blood pressure 138 mm[Hg] Charbel Rodriguez Other [facility] Other 12-07-2022 11:20-0500 Body height 163.19 cm Ronda Ismael Other [facility] Other 12-07-2022 11:20-0500 Body mass index (BMI) [Ratio] 42.57 kg/m2 Ronda Guevara Other [facility] Other 12-07-2022 11:20-0500 Body temperature 97.2 [degF] Ronda Guevara Other [facility] Other 12-07-2022 11:20-0500 Body weight 113.4 kg Ronda Guevara Other [facility] Other 12-07-2022 11:20-0500 SaO2% (BldA) [Mass fraction] 98 % Ronda Guevara Other [facility] Other 08-14-2022 11:13-0400 Body height 165.1 cm [facility] 08-14-2022 11:13-0400 Body weight 120.66 kg [facility] 08-14-2022 11:13-0400 Heart rate 60 /min [facility] 08-13-2022 15:40-0400 Body height 163.19 cm Charbel Rodriguez Other [facility] Other 08-13-2022 15:40-0400 Body mass index (BMI) [Ratio] 45.64 kg/m2 Charbel Rodriguez Other [facility] Other 08-13-2022 15:40-0400 Body temperature 97.7 [degF] Charbel Rodriguez Other [facility] Other 08-13-2022 15:40-0400 Body weight 121.56 kg Charbel Rodriguez Other [facility] Other 08-13-2022 15:40-0400 Diastolic blood pressure 82 mm[Hg] Charbel Rodriguez Other [facility] Other 08-13-2022 15:40-0400 Respiratory rate 18 /min Charbel Rodriguez Other [facility] Other 08-13-2022 15:40-0400 SaO2% (BldA) [Mass fraction] 98 % Charbel Rodriguez Other [facility] Other 08-13-2022 15:40-0400 Systolic blood pressure 132 mm[Hg] Charbel Rodriguez Other [facility]ul[facility] Other 07-07-2022 18:14-0400 Body temperature 98.4 [degF] [...] 113.39 kg DO Charbel Alicerosey Work Phone: [facility] Encounters Encounter Date Encounter Type Care Provider Facility Start: 05-25-2024 End: 05-25-2024 ambulatory SYEDA PAYNE Not Available Start: 04-28-2024 End: 04-28-2024 ambulatory RYAN MICHAEL Not Available Start: 04-20-2024 End: 04-20-2024 ambulatory RYAN MICHAEL Not Available Start: 04-13-2024 End: 04-13-2024 ambulatory DO Charbel Michael Work Phone: [facility] Work Phone: Start: 04-13-2024 End: 04-13-2024 Departed Referred DO Charbel Rodriguez Work Phone: [facility] Start: 04-13-2024 Non-patient / Non-visit DO Keegan id Girvin Work Phone: [facility] Work Phone: Start: 04-07-2024 End: 04-07-2024 ambulatory RYAN MICHAEL Not Available Start: 03-31-2024 Non-patient / Non-visit DO Keegan id Girvin Work Phone: [facility] Work Phone: Start: 03-31-2024 End: 03-31-2024 ambulatory RYAN MICHAEL Not Available Start: 03-16-2024 Non-patient / Non-visit DO Keegan id Girvin Work Phone: [facility] Work Phone: Start: 03-16-2024 End: 03-16-2024 ambulatory RYAN MICHAEL Not Available Start: 03-11-2024 Non-patient / Non-visit DO Keegan id Girvin Work Phone: [facility] Work Phone: Start: 03-04-2024 [...] 09-13-2023 End: 09-13-2023 ambulatory Charbel Rodriguez Other [facility] Other Start: 09-13-2023 Telephone encounter Charbel Rodriguez [facility] Start: 09-10-2023 End: 09-10-2023 ambulatory SONIA A VISCI Not Available Start: 06-24-2023 End: 06-24-2023 ambulatory Charbel Rodriguez Other [facility] Other Start: 06-24-2023 Telephone encounter Charbel Rodriguez [facility] Start: 06-03-2023 End: 06-03-2023 ambulatory Charbel Rodriguez Other [facility] Other Start: 06-03-2023 Telephone encounter Charbel Rodriguez [facility] Start: 05-27-2023 End: 05-27-2023 ambulatory Charbel Rodriguez Other [facility] Other Start: 05-27-2023 Telephone encounter Charbel Rodriguez [facility] Start: 05-08-2023 End: 05-08-2023 ambulatory Charbel Rodriguez Other [facility] Other Start: 05-08-2023 Office outpatient vi sit 15 minutes Charbel Rodriguez [facility] Start: 04-26-2023 End: 04-26-2023 ambulatory Charbel Michael Other [facility] Other Start: 04-26-2023 Telephone encounter Charbel Rodriguez [facility] Start: 04-19-2023 End: 04-19-2023 ambulatory Charbel Michael Other [facility] Other Start: 04-19-2023 Telephone encounter Charbel Rodriguez [facility] Start: 04-17-2023 End: 04-17-2023 ambulatory CHARBEL RODRIGUEZ Facility:[facility] Start: 04-17-2023 End: 04-17-2023 Patient encounter procedure Tessa Sanchez MD Work Phone: Orthopaedics Comment on above: 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) Start: 04-12-2023 End: 04-12-2023 ambulatory Charbel Rodriguez Other [facility] Other Start: 04-12-2023 Office outpatient vi sit 15 minutes Charbel Rodriguez [facility] Start: 03-13-2023 End: 03-13-2023 ambulatory CHARBEL RODRIGUEZ Facility:[facility] Start: 02-28-2023 Telephone encounter Tessa bates MD Work Phone: Orthopaedics Comment on above: Electronic Communica tion (PT order faxed today) Start: 01-10-2023 Telephone encounter Tessa bates MD Work Phone: Orthopaedics Comment on above: Return To Work Becky alvarez Start: 01-02-2023 End: 01-02-2023 ambulatory CHARBEL RODRIGUEZ Facility:[facility] Start: 01-02-2023 End: 01-02-2023 Subsequent hospital visit by physician [facility] Re[facility] Work Phone: Radiology Comment on [...] 12-07-2022 End: 12-07-2022 ambulatory Ronda Guevara Other [facility] Other Start: 12-07-2022 Office outpatient vi sit 25 minutes Ronda Guevara [facility] Start: 12-07-2022 Telephone encounter Charbel Rodriguez 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) Start: 11-14-2022 End: 11-14-2022 Subsequent hospital visit by physician [facility] Re[facility] Work Phone: Radiology Comment on above: Osteochondritis diss ecans of right talus [M93.271] Start: 11-14-2022 End: 11-14-2022 ambulatory CHARBEL RODRIGUEZ [facility] Other Start: 11-14-2022 Telephone encounter Charbel Rodriguez [facility] Start: 11-13-2022 End: 11-14-[address] CHARBEL RODRIGUEZ Facility: Start: 11-12-2022 End: 11-12-2022 ambulatory Charbel Rodriguez Other [facility] Other Start: 11-12-2022 Telephone encounter Charbel Rodriguez [facility] Start: 10-31-2022 Orders Only Tessa Vasquez Work Phone: Orthopaedics Comment on above: 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) Start: 10-10-2022 End: 10-10-2022 ambulatory CHARBEL RODRIGUEZ Facility:[facility] Start: 10-10-2022 End: 10-10-2022 Patient encounter procedure Tessa Sanchez MD Work Phone: Orthopaedics Comment on above: 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) Start: 09-26-2022 Telephone encounter Tessa bates MD Work Phone: Orthopaedics Comment on above: Patient Question Start: 09-12-2022 End: 09-12-2022 ambulatory CHARBEL RODRIGUEZ Facility:[facility] Start: 09-12-2022 End: 09-12-2022 Patient encounter procedure Cast Tech Agnes Work Phone: Orthopaedics Comment on above: 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) Start: 09-05-2022 End: 09-05-2022 ambulatory Charbel Rodriguez Other [facility] Other Start: 09-05-2022 Telephone encounter Charbel Rodriguez [facility] Start: 09-03-2022 End: 09-03-2022 ambulatory Charbel Rodriguez Other [facility] Other Start: 09-03-2022 Telephone encounter Charbel Rodriguez [facility] Comment on above: post op right ankle swelling and pain Start: 09-02-2022 Telephone encounter Eyad marroquin MD Work Phone: Surgical Intensive Care Unit Comment on above: Patient Question Start: 08-29-2022 End: 08-29-2022 Patient encounter procedure [employer] Agnes Work Phone: Orthopaedics Comment on above: 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 Schedulicity Other Start: 08-29-2022 Telephone encounter Charbel Rodriguez [facility] Start: 08-28-2022 End: 08-28-2022 ambulatory TESSA SANCHEZ Facility:[facility] Start: 08-27-2022 Refill Tessa Vasquez Work Phone: Orthopaedics Comment on above: Refill Request Start: 08-24-2022 End: 08-24-2022 ambulatory CHARBEL ARROYO ALICEROSEY Facility:[facility] Start: 08-16-2022 End: 08-16-2022 ambulatory Charbel Rodriguez Other [facility] Other Start: 08-16-2022 Telephone encounter Charbel Rodriguez [facility] Start: 08-15-2022 Telephone encounter Tessa bates MD Work Phone: Pre Anesthesia Comment on above: Results; Preparation s For Surgery Start: 08-15-2022 End: 08-15-2022 ambulatory CHARBEL RODRIGUEZ Facility:[facility] Start: 08-14-2022 Encounter for other preprocedural examination CHARBEL RODRIGUEZ [facility] Start: 08-14-2022 End: 08-14-2022 Admission to establishment [facility] Start: 08-14-2022 End: 08-14-2022 ambulatory TESSA SANCHEZ Pre Anesthesia Comment on above: Preop examination (P rimary Dx); Anemia, unspecified type; Difficult intravenous access; Acute bilateral low back pain without sciatica; History of syncope; History of palpitations; Former smoker; BMI 40.0-44.9, adult ([facility]) Start: 08-14-2022 End: 08-14-2022 Preprocedural examination done [facility] Pre Anesthesia Start: 08-13-2022 End: 08-13-2022 ambulatory Charbel Rodriguez Other brotips Other Start: 08-13-2022 Office outpatient vi sit 15 minutes Charbel Rodriguez [facility] Start: 08-13-2022 Telephone encounter Charbel Rodriguez [facility] Start: 2022 End: 2022 ambulatory CHARBEL RODRIGUEZ Facility:[facility] Start: 2022 End: 2022 Patient encounter procedure Tessa Sanchez MD Work Phone: Orthopaedics Comment on above: 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) Start: 08-01-2022 End: 08-01-[address] CHARBEL RODRIGUEZ Facility: Start: 07-09-2022 End: 07-09-2022 ambulatory Charbel Rodriguez Other brotips Other Start: 07-09-2022 Telephone encounter Charbel Rodriguez [facility] Start: 07-07-2022 End: 07-07-2022 Emergency department patient visit DO Charbel Rodriguez Work Phone: [facility] Start: 06-28-2022 End: 06-28-[address] CHARBEL RODRIGUEZ Facility: Start: 05-23-2022 End: 05-23-2022 ambulatory Charbel Rodriguez Other brotips Other Start: 05-23-2022 Telephone encounter Charbel Rodriguez [facility] Start: 01-06-[address] CHARBEL RODRIGUEZ Facilit [...] DTaP,Tdap,Td Vaccine (7 - Td or Tdap) [facility] Start: 06-28-2023 Influenza vaccination C [facility] Start: 08-14-2022 End: 10-14-2022 Basic metabolic 2000 panel - Serum or Plasma BASIC METABOLIC PNL Lab Routine History of syncope Expected: 08/14/2022, Expires: 10/14/2022 [facility] Work Phone: Comment on above: Expected: 08/14/2022 , Expires: 10/14/2022 Start: 08-14-2022 End: 10-14-2022 CBC panel - Blood by Automated count CBC Lab Routine Preop examination Anemia, unspecified type Expected: 08/14/2022, Expires: 10/14/2022 [facility] Work Phone: Comment on above: Expected: 08/14/2022 , Expires: 10/14/2022 Start: 07-07-2022 X-ray of right ankle XR ankle RT min 3V* [facility] Start: 07-07-2022 XR Ankle - right GE 3 Views [facility] Work Phone: Start: 06-28-2022 Influenza vaccination INFLUENZA (#1) [facility] Start: 10-28-2021 DEPRESSION ASSESSMENT DEPRESSION ASS ESSMENT [facility] Start: 2015 PAP TESTING PAP TESTING [facility] Start: 2013 Urine microalbumin profile DTAP,TDAP,TD (1 - Tdap) [facility] Start: 2012 HEPATITIS C SCREENING HEPATITIS C [place] [facility] Start: 2012 HIV SCREENING HIV SCREENING [facility] Start: 2000 PNEUMOCOCCAL (1 - PCV) PNEUMOCOCCAL (1 - PCV) [facility] Start: 02-06-1995 COVID-19 VACCINE (#1) COVID-19 VACCI NE (#1) [facility] Start: 1994 HEPATITIS B (1 of 3 - 3-dose series) HEPATITIS B (1 of 3 - 3-dose series) [facility] Patient Education Ankle Sprain ED [facility] Work Phone: Patient referral [facility] Work Phone: End: 11-30-2023 XR ANKLE GENERAL 3V AP/LAT/OBL RIGHT XR ANKLE GENERAL 3V AP/LAT/OBL RIGHT Radiology Routine Osteochondritis dissecans of right talus 1 Occurrences starting 11/02/2022 until 11/30/2023 [facility] Work Phone: Comment on above: 1 Occurrences starti ng 11/02/2022 until 11/30/2023 [facility] Immun[facility] Immunization Date Immunization Notes Care Provider Judy adamson 11-29-2021 tetanus toxoid, reduced diphtheria toxoid, and acellular pertussis vaccine, adsorbed DO Charbel Rodriguez Work Phone: [facility] NEGATED: Highlighted row has not occurred!08-07-2019 influenza, seasonal, injectable Patient Objection Charbel Rodriguez Other brotips Other Payers Date Payer Category Payer Self-pay [id number] 2022 Medicaid [id number] 2. [id number] 2021 Medicaid [id number] 5 2018 Unknown [id number] [id number] 5 1994 Unknown [id number] 2.16.84 0.1.775226.3.579.2.593 1994 Unknown [id number] 2.16.84 0.1.536117.3.579.2.593 1994 Unknown [id number] 2.16.84 0.1.427869.3.579.2.593 1994 Unknown [id number] 2.16.84 0.1.359735.3.579.2.593 1994 Unknown [id number] 2.16.84 0.1.605687.3.579.2.1259 1994 Unknown [id number] 2.16.84 0.1.544987.3.579.2.1259 1994 Unknown [id number] 2.16.84 0.1.533205.3.579.2.1259 1994 Unknown [id number] 2.16.84 0.1.864523.3.579.2.1259 1994 Unknown [id number] 2.16.84 0.1.519663.3.579.2.1259 1994 Unknown [id number] 2.16.84 0.1.766600.3.579.2.1259 1994 Unknown [id number] 2.16.84 0.1.287774.3.579.2.1259 1994 Unknown [id number] 2.16.84 0.1.176069.3.579.2.1259 1994 Unknown [id number] 2.16.84 0.1.528880.3.579.2.1259 1994 Unknown [id number] 2.16.84 0.1.981158.3.579.2.1259 1994 Unknown [id number] 2.16.84 0.1.890380.3.579.2.1259 1994 Unknown [id number] 2.16.84 0.1.803223.3.579.2.1259 1994 Unknown [id number] 2.16.84 0.1.338739.3.579.2.1259 1994 Unknown [id number] 2.16.84 0.1.574124.3.579.2.1259 1994 Unknown [id number] 2.16.84 0.1.433898.3.579.2.1259 1994 Unknown [id number] 2.16.840 .1.214055.3.579.2.1259 1994 Unknown [id number] 2.16.840 .1.993851.3.579.2.1259 1994 Unknown [id number] 2.16.840 .1.675348.3.579.2.1259 1994 Unknown [id number] 2.16.840. 1.724539.3.579.2.1259 1959 Medicaid [id number] 1959 Unknown [id number] Medicaid [place] Advantage [id number] Unknown [id number] 2.16.8 40.1.726580.3.579.2.531 Social History Date Type Detail Facility Start: 07-07-2022 End: 01-13-2024 Tobacco smoking status MNIS Ex-smoker (finding) [facility] Start: 1994 Sex Assigned At Female F [facility] Start: 10-03-2018 Tobacco smoking stat us RUST Occasional tobacco smoker [facility] Start: 10-03-2018 End: 08-14-2022 Tobacco use and exposure Smokeless tobacco non-user [facility] Start: 01-01-2019 End: 08-14-2022 Alcohol intake Current non-drinker of alcohol (finding) [facility] Start: 1994 Sex Assigned At Not on file [facility] Start: 08-14-2022 End: 11-10-2022 Sex Assigned At [facility] [employer] Other End: 10-28-2019 History of tobacco use Current smoker [facility] Work Phone: End: 10-28-2019 History of tobacco use Cigarette Smoker [facility] Work Phone: Start: 08-14-2022 End: 11-10-2022 Cigarettes smoked current (pack per day) - Reported 0.3 [facility] Start: 08-04-2022 End: 08-28-2022 Exposure to SARS-CoV-2 (event) Not sure [facility] Work Phone: National Score (1-100), lower number is lower risk 86 [facility] Clinical Notes 05-23-2022 to 06-03-2023 Note Date & Type Note Facility 06-03-2023 Evaluation note Encounter Date Diagnosis Assessment Notes May, Depression (ICD-10 - F32.9) brotips Other 07-12-2023 Evaluation note* Encounter Date Diagnosis [...] her dose should be increased or not. brotips Other 06-30-2023 Evaluation note* Encounter Date Diagnosis Assessment Notes Treatment Notes Treatment Clinical Notes Mar, Weight gain (ICD-10 - R63.5) brotips Other 06-21-2023 NoteHNO ID: [id number] Author: Tessa Sanchez MD Service: ? Author [...] and is of normal mood and affect. [facility] 07/02/2022 Gait Cycle: Normal Yes, [...] records. This note was partially generated using [employer] voice recognition system, and there may be some incorrect words, spellings, and punctuation that were not noted in checking the note before saving. Tessa Sanchez M.D.[facility]06-21-2023 History of Present illness Narrative* Tessa [...] records. This note was partially generated using [employer] voice recognition system, and there may be some incorrect words, spellings, and punctuation that were not noted in checking the note before saving. Tessa Sanchez M.D. documented in this encounterSelect [facility]06-[facility]-20[facility] Evaluation note* Encounter Date Diagnosis Assessment Notes [...] can take a multivitamin daily ([place] Complete) brotips Other 05-17-2023 NoteHNO ID: [id number] Author: Tessa Sanchez MD Service: ? Author [...] records. This note was partially generated using [employer] voice recognition system, and there may be some incorrect words, spellings, and punctuation that were not noted in checking the note before saving. Tessa Sanchez M.D.[facility]05-05-2023 Miscellaneous Notes* Telephone Encounter - Lizzette Adams RN - 03/01/2023 10:21 AM EDT Faxed today at 10:20am. Lizzette Adams RN * Telephone Encounter - Margy Contreras Pss - 02/28/2023 4:08 PM EDT Patient wants to get physical therapy at [facility] in [place]. Has been approved by [facility] and she can now schedule. Asking for recent therapy order from Dr Sanchez be faxed to [facility] in [place] at [phone]. documented in this encounterSelect [facility]23 Miscellaneous Notes* Telephone Encounter - Lizzette Adams [...] calling: self Call patient at: at home [phone] (home) [phone] (cell) Was an appointment scheduled: No Closing statement: Results or non-symptom based questions: Thank you for calling [facility], your call will be returned within the [...] back to the office to update CALL [phone] documented in this encounterSelect Medical [facility]03-08-2023 NoteHNO ID: [id number] Author: RT Rubina(R) Service: Radiology Author Type: [...] Florence Cespedes RT(R) January 02, 2023 4:10 [facility]03-08-2023 NoteHNO ID: [id number] Author: Tessa Sanchez MD Service: ? Author [...] records. This note was partially generated using [employer] voice recognition system, and there may be [...] Past Histories independently gathered by the clinical life support technician and the remaining scribed note accurately describes my personal service to the patient. Tessa Sanchez M.D.[facility]03-08-2023 History of Present illness Narrative* Blaise [...] 02, 2023 4:10 PM documented in this encounterSelect [facility]-2023 History of Present illness Narrative* Tessa Sanchez [...] records. This note was partially generated using [employer] voice recognition system, and there may be [...] Past Histories independently gathered by the clinical life support technician and the remaining scribed note accurately describes my personal service to the patient. Tessa Sanchez M.D. documented in this encounterSelect Medical [facility]02-24-2023 Miscellaneous Notes* Telephone Encounter - Vinay Corona RN - 12/21/2022 5:34 PM EST This RN called and spoke with patient. Letter sent via [employer] she report she received it. 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 She was grateful for the call. Vinay Corona OBSTETRICIAN * Telephone Encounter - Ana Luisa Hernandez [...] that prevented her form having PT. CALL [phone] * Telephone Encounter - Autumn Clayton - [...] patient specific tasks. * Telephone Encounter - Maryg Contreras Pss - 12/19/2022 12:45 PM EST [...] with update Please advise documented in this encounterSelect [facility]-24-2023 Miscellaneous Notes* Telephone Encounter - Vinay Corona [...] office to complete them. documented in this encounterSelect [facility]02-10-2023 Evaluation note* Encounter Date Diagnosis Assessment Notes [...] treatment plan. Patient left in stable condition brotips Other 01-23-2023 Evaluation note* Encounter Date Diagnosis Assessment Notes Treatment Notes Treatment Clinical Notes Oct, Cough (ICD-10 - R05.9) Oct, Sore throat (ICD-10 - J02.9) Oct, Headache (ICD-10 - R51.9) Oct, Congestion of nasal sinus (ICD-10 - R09.81) brotips Other 01-18-2023 NoteHNO ID: [id number] Author: RT Marquis(R) Service: Radiology Author Type: Technologist Type: Progress Notes Filed: 11/14/2022 4:05 PM Note Text: Radiology Service Progress Note PATIENT NAME: dEith Wells DATE OF SERVICE: November 14, 2022 [...] BY: RT Marquis(R) November 14, 2022 4:05 [facility]01-18-2023 History of Present illness Narrative* [...] 14, 2022 4:05 PM documented in this encounterSelect Medical [facility]01-18-2023 Evaluation note* Encounter Date Diagnosis Assessment Notes Treatment Notes Treatment Clinical Notes Oct, Leukocytosis (ICD-10 - D72.829) brotips Other 01-17-2023 NoteHNO ID: [id number] Author: Tessa Sanchez MD Service: ? Author [...] proprioception and follow-up in 4 weeks [facility] History of Present illness Narrative* Tessa Sanchez [...] weeks Tessa Sanchez MD documented in this encounterSelect Medical [facility]01-16-2023 Evaluation note* Encounter Date Diagnosis Assessment Notes Treatment Notes Treatment Clinical Notes Oct, Nausea (ICD-10 - R11.0) She voices that she does not feel right . I would like to rule out . I do not want to add any medication until we know for sure if she is or not. She is agreeable to this and will have this done at the [facility] lab. She can call for results. She [...] Oct, Other 2:54 PM - 3:02 PM brotips Other 12-14-2022 NoteHNO ID: [id number] Author: Tessa Sanchez MD Service: ? Author [...] in 6 weeks for recheck Tessa Sanchez [facility]12-14-2022 History of Present illness Narrative* [...] recheck Tessa Sanchez MD documented in this encounterSelect Medical [facility]12-02-2022 Miscellaneous Notes* Telephone Encounter - Lizzette Adams [...] pm. Patient requesting a return call through #[phone] #[phone]. The second number is her boyfriends line, Elias. Patient gives okay to leave me ssage with Elias if needed. Please advise. documented in this encounterSelect Medical [facility]11-16-2022 NoteHNO ID: [id number] Author: Tessa Sanchez MD Service: ? Author [...] follow up in 4 weeks. Tessa Sanchez [facility]11-16-2022 NoteHNO ID: [id number] Author: Alfred Campo Cast Service: ? Author Type: ? Type: Progress Notes Filed: 09/12/2022 4:10 PM Note Text: PT ASSESSMENT - CASTING ROOM Edith presents for cast removal. Applied pneumatic aircast walker(HAD PRIOR TO SURGERY) to Right leg non-weight bearing Patient has been instructed in Care of boot.. Alfred Campo Cast Beeper: [id number] Health [facility]11-16-2022 History of Present illness Narrative* Tessa [...] weeks. Tessa Sanchez MD documented in this encounterSelect Medical [facility]11-16-2022 History of Present illness Narrative* Alfred Campo Cast - 09/12/2022 4:04 PM EST PT ASSESSMENT - CASTING ROOM Edith presents for cast removal. Applied pneumatic aircast walker(HAD PRIOR TO SURGERY) to Right leg non-weight bearing Patient has been instructed in Care of boot.. Alfred Campo Cast Beeper: [id number] documented in this encounterSelect Medical [facility]11-07-2022 Miscellaneous Notes* Telephone Encounter - Lizzette Adams [...] until 09/12. Please advise. documented in this encounterSelect Medical [facility]11-07-2022 NoteHNO ID: [id number] Author: Lizzette Adams RN Service: ? Author [...] was the physician present today. Lizzette Adams RNParkview Health Bryan Hospital11-06-2022 Miscellaneous Notes* Telephone Encounter - Eyad [...] MD Orthopaedic Surgery, PGY-3 documented in this encounterSelect Medical [facility]11-02-2022 NoteHNO ID: [id number] Author: Alfred Griffith Service: ? Author Type: ? Type: Progress Notes Filed: 08/29/2022 3:44 PM Note Text: PT ASSESSMENT - CASTING ROOM Edith presents for Application of cast. Applied short cast: to Right leg non-weight bearing Patient has been instructed in Care of cast.. Alfred Campo Cast Beeper: [id number] Health [facility] Hospital11-02-2022 History of Present illness Narrative* Alfred Santosey Cast - 08/29/2022 3:40 PM EDT PT ASSESSMENT - CASTING ROOM Edith presents for Application of cast. Applied short cast: to Right leg non-weight bearing Patient has been instructed in Care of cast.. Alfred Campo Cast Beeper: [id number] documented in this encounterSelect Medical [facility]11-01-2022 NoteHNO ID: [id number] Author: Mike Alcantar MD Service: Anesthesiology Author Type: Anesthesiologist Type: Anesthesia Procedure Notes Filed: 08/28/2022 1:01 PM Note Text: ANESTHESIOLOGY PROCEDURE NOTE Peripheral Nerve Block General Information Procedure Start Time/Medication Administration: 08/28/2022 12:48 PM Procedure End time: 08/28/2022 12:58 PM Patient location during procedure: PACU Timeout Performed Pre-procedure: timeout performed (8698) Consent Obtained: Yes 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, 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 member Reason for block: post-op pain [...] August 28, 2022 TIME: 1:00 PM CSN: [id number] NoteHNO ID: [id number] Author: GEORGIE Tinsley Service: Anesthesiology Author Type: Supply Chain Systems Manager Type: Anesthesia Procedure Notes Filed: 08/28/2022 10:57 [...] August 28, 2022 TIME: 10:56 AM CSN: [id number] NoteHNO ID: [id number] Author: Mike Alcantar MD Service: Anesthesiology Author Type: Anesthesiologist Type: Anesthesia Procedure Notes Filed: 08/28/2022 9:35 AM Note Text: ANESTHESIOLOGY PROCEDURE NOTE Peripheral Nerve Block General Information Procedure Start Time/Medication Administration: 08/28/2022 9:16 AM Procedure End time: 08/28/2022 9:24 AM Patient location during procedure: pre-op Timeout Performed Pre-procedure: timeout performed (920) Consent Obtained: Yes 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, 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 member Reason for block: post-op pain [...] August 28, 2022 TIME: 9:33 AM CSN: [id number] Miscellaneous Notes* Telephone Encounter - Kasi Mathur [...] Right scheduled with you on 08/28/2022 at [facility] under General. She had her pre-op labs [...] Kasi Mathur PA-C PACC documented in this encounterSelect Medical [facility]10-18-2022 Instructions* Patient Instructions* Kasi Mathur PA-C - 08/14/2022 11:33 AM EDT Lab in [place]: [facility], [place] [address] PATIENT PREOPERATIVE INSTRUCTIONS Tessa Sanchez MD has scheduled you for your procedure at this surgery center: [facility]: [phone] --[address] [place] [address]. Please read below carefully for your personalized [...] Procedures: - YOU MUST HAVE A RESPONSIBLE FILING CLERK TAKE YOU HOME. A SUPERINTENDENT CONCRETE MIXING PLANT OR FILM OR VIDEOTAPE EDITOR CANNOT BE MADE A RESPONSIBLE FILING CLERK. - We recommend that a responsible person [...] Advance Directive, please fax a copy to [phone] or email to for it to be [...] day. Kasi Mathur PA-C documented in this encounterSelect Medical Ohiohealth [facility]10-18-2022 History and physical note * Kasi Mathur [...] fevers. Neuro: No history of TIA's, stroke, GENERAL MANAGER ROAD PRODUCTION tumor, impaired sensorium, hemiplegia, paraplegia or quadraplegia. [...] incontinence,, stones or chronic kidney disease DIRECTOR TRAFFIC AND PLANNING: Negative for abnormal vaginal bleeding, abnormal vaginal [...] visit: Labs per care everywhere reviewed: 11/29/2021 [facility] CBC Hgb 9.0 (11.8-15.4) Hct 26.5% (34-46.4%) [...] a prior CC echocardiographic exam for comparison. patient monitor 09/17/2018 Patient had a min HR of 36 bpm, max HR of 156 bpm, and avg HR of 74 bpm. Predominant underlying rhythm was Sinus Rhythm. No Isolated SVEs, SVE Couplets, or SVE Triplets were present. Isolated VEs were frequent (8.2%, 36916), and no VE Couplets or VE Triplets [...] ppd x years 8. BMI 40.0-44.9, adult ([facility]) BMI 44 METS: Climb a flight [...] 11:04 AM PAGER/CONTACT #: documented in this encounterSelect Medical Ohio[facility]10-17-2022 Evaluation note* Encounter Date Diagnosis Assessment Notes [...] she can discuss this treatment with her business development specialist. She is having surgery on 08-28-22. [...] be following with Dr. Sanchez at the [facility] location, she was referred to him by Dr. Cosby. She thinks it is bone that is trying to heal. brotips Other 10-12-2022 NoteHNO ID: [id number] Author: Tessa Sanchez MD Service: ? Author [...] the patient, and the (more content not included)...[facility]10-12-2022 History of Present illness Narrative* Tessa [...] records. This note was partially generated using [employer] voice recognition system, and there may be [...] Past Histories independently gathered by the clinical life support technician and the remaining scribed note accurately describes my personal service to the patient. Tessa Sanchez M.D. documented in this encounterSelect Medical [facility]07-27-2022 Evaluation note* Encounter Date Diagnosis Assessment Notes [...] S82.899A) right ankle She has seen an data entry specialist twice for a right ankle fracture. 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 documented in this encounter [facility] note* Diagnosis Osteochondritis dissecans of right talus- Primary documented in this encounter [facility] note* Diagnosis Osteochondritis dissecans of right talus- Primary documented in this encounter [facility] note* Diagnosis Osteochondritis dissecans of right talus- Primary documented in this encounter [facility] note* Diagnosis Osteochondritis dissecans of right talus- Primary documented in this encounter [facility] note* Diagnosis Osteochondritis dissecans of right talus- Primary documented in this encounter [facility] note* Diagnosis Osteochondritis dissecans of right talus- Primary documented in this encounter [facility] note* Diagnosis Osteochondritis dissecans of right talus- Primary documented in this encounter [facility] note* Diagnosis Osteochondritis dissecans of right talus documented in this encounter [facility] general Narrative - Reported* Type Description Date Medical History reflux Medical History menstrual irregularity Medical History vertigo Medical History anxiety Medical History ankle fx right Surgical History T & A 2003 Surgical History Mole removal Surgical History C section Surgical History IUD -Reyna 03/31/17 Surgical History 11/28/21 Hospitalization History See Above brotips Other [facility] general Narrative - Reported* Type Description Date Medical History reflux Medical History menstrual irregularity Medical History vertigo Medical History anxiety Medical History ankle fx right Surgical History T & A 2003 Surgical History Mole removal Surgical History C section Surgical History IUD -Reyna 03/31/17 Surgical History 11/28/21 Surgical History right ankle surgery 08/28/22 Hospitalization History See Above brotips Other [facility] general Narrative - Reported* Type Description Date Medical History reflux Medical History menstrual irregularity Medical History vertigo Medical History anxiety Medical History ankle fx right Surgical History T & A 2003 Surgical History Mole removal Surgical History C section Surgical History IUD -Reyna 03/31/17 Surgical History 11/28/21 Surgical History right ankle surgery 08/28/22 Surgical History IUD removed 03/06/23 Hospitalization History See Above brotips Other [facility] for referral (narrative)* Diagnostic Procedure Only (Routine) - Pending Review Specialty Diagnoses / Procedures Referred By Contac t Referred To Contact XR IMAGING Diagnoses Osteochondritis dissecans of right talus Procedures XR ANKLE GENERAL 3V AP/LAT/OBL RIGHT RADEX ANKLE COMPLETE MINIMUM 3 [place] [address] [place] [address] Xr Imaging Referral ID Status Reason Start Date Expiration Date Visits Requested Visits Authorized [id number] Pending Review Auto-Generat ed Referral 11/02/2022 11/30/2023 1 1 [facility] for referral (narrative)* - Pending Review Specialty Diagnoses / Procedures Referred By Contac t Referred To Contact Physical Therapy Diagnoses Osteochondritis dissecans of right talus Procedures CONSULT [place] [address] [place] [address] Referral ID Status Reason Start Date Expiration Date V isits Requested Visits Authorized [id number] Pending Review 04/17/2023 07/16/2023 1 1 [facility] for referral (narrative)* Diagnostic Procedure Only (Routine) - Closed Specialty Diagnoses / Procedures Referred By Contac t Referred To Contact XR IMAGING Diagnoses Osteochondritis dissecans of right talus Procedures XR ANKLE GENERAL 3V AP/LAT/OBL RIGHT RADEX ANKLE COMPLETE MINIMUM 3 [place] [address] [place] [address] [place] [address] Referral ID Status Reason Start Date Expiration Date V isits Requested Visits Authorized [id number] Closed Auto-Generate d Referral 01/02/2023 01/31/2024 1 1 [facility] for referral (narrative)* Diagnostic Procedure Only (Routine) - Closed Specialty Diagnoses / Procedures Referred By Contac t Referred To Contact XR IMAGING Diagnoses Osteochondritis dissecans of right talus Procedures XR ANKLE GENERAL 3V AP/LAT/OBL RIGHT RADEX ANKLE COMPLETE MINIMUM 3 [place] [address] [place] [address] [place] [address] Referral ID Status Reason Start Date Expiration Date V isits Requested Visits Authorized [id number] Closed Auto-Generate d Referral 11/02/2022 11/30/2023 1 1 [facility] Summary Purpose Family History No Family History [...] HIGH COMPLEX 45 [place] [address] [place] [address] [facility] [place] [address] [place] [address] Referral ID Status Reason Start Date Expiration Date Visits Requested Visits Authorized [id number] Pending Review Auto-Generat ed Referral 2 09/12/2023 1 1 Additional Source Comments INFORMATION SOURCE (unrecogn ized section and content) DATE CREATED AUTHOR 05/08/2022 [facility]ical Specialist DATE CREATED AUTHOR AUTHOR'S ORGANIZ ATION 08/29/2022 [facility] DATE CREATED AUTHOR AUTHOR'S ORGANIZ ATION 11/15/2022 [facility] DATE CREATED AUTHOR AUTHOR'S ORGANIZ ATION 05/28/2023 [facility] DATE CREATED AUTHOR AUTHOR'S ORGANIZ ATION 04/20/2024 [facility] DATE CREATED AUTHOR AUTHOR'S ORGANIZ ATION 05/26/2024 [facility] EPIC Care Teams (unrecognized sec tion and content) Team Status: Inactive Member Role Status Dates Charbel Rodriguez DO Primary Care Provider Active Constantine Yee PA-C Emergency Provider Active Team Status: Active Member Role Status Dates Charbel Rodriguez DO Primary Care Provider Active Sulky Driver Relationship Specialty Start Date End Date Charbel Rodriguez, DO [address] [place] [address] PCP - General Family Medicine 07/07/18 Charbel Cosby [address] [place] [address] Referring Orthopedics 07/18/22 Sulky Driver Relationship Specialty Start Date End Date Charbel Rodriguez, DO [address] [place] [address] PCP - General Family Medicine 07/07/18 Charbel Cosby [address] [place] [address] Referring Orthopedics 07/18/22 Sulky Driver Relationship Specialty Start Date End Date Charbel Rodriguez, DO [address] [place] [address] PCP - General Family Medicine 07/07/18 Charbel Cosby [address] [place] [address] Referring Orthopedics 07/18/22 Sulky Driver Relationship Specialty Start Date End Date Charbel Rodriguez, DO [address] [place] [address] PCP - General Family Medicine 07/07/18 Charbel Cosby [address] [place] [address] Referring Orthopedics 07/18/22 Sulky Driver Relationship Specialty Start Date End Date Charbel Rodriguez, DO [address] [place] [address] PCP - General Family Medicine 07/07/18 Charbel Cosby [address] [place] [address] Referring Orthopedics 07/18/22 Sulky Driver Relationship Specialty Start Date End Date Charbel Rodriguez, DO [address] [place] [id number] PCP - [facility] Medicine 07/07/18 Charbel Cosby [address] [place] [address] Referring Orthopedics 07/18/22 Sulky Driver Relationship Specialty Start Date End Date Charbel Rodriguez, DO [address] [place] [address] PCP - [facility] Medicine 07/07/18 Charbel Cosby [address] [place] [address] Referring Orthopedics 07/18/22 Sulky Driver Relationship Specialty Start Date End Date Charbel Rodriguez, DO [address] [place] [id number] PCP - [facility] Medicine 07/07/18 Charbel Cosby [address] [place] [address] Referring Orthopedics 07/18/22 Sulky Driver Relationship Specialty Start Date End Date Charbel Rodriguez, DO [address] [place] [address] PCP - General Family Medicine 07/07/18 Charbel Cosby [address] [place] [address] Referring Orthopedics 07/18/22 Sulky Driver Relationship Specialty Start Date End Date Charbel Rodriguez, DO [address] [place] [address] PCP - [facility] Medicine 07/07/18 Charbel Cosby [address] [place] [address] Referring Orthopedics 07/18/22 Sulky Driver Relationship Specialty Start Date End Date Charbel Rodriguez, DO [address] [place] [address] PCP - [facility] 07/07/18 Charbel Cosby [address] [place] [address] Referring Orthopedics 07/18/22 Sulky Driver Relationship Specialty Start Date End Date Charbel Rodriguez, DO [address] [place] [address] PCP - [facility] 07/07/18 Charbel Cosby [address] [place] [address] Referring Orthopedics 07/18/22 Sulky Driver Relationship Specialty Start Date End Date Charbel Rodriguez, DO [address] [place] [address] PCP - [facility] Medicine 07/07/18 Charbel Cosby [address] [place] [address] Referring Orthopedics 07/18/22 Sulky Driver Relationship Specialty Start Date End Date Charbel Rodriguez DO [address] [place] [address] PCP - [facility] 07/07/18 Charbel Cosby [address] [place] [address] Referring Orthopedics 07/18/22 Sulky Driver Relationship Specialty Start Date End Date Charbel Rodriguez DO [address] [place] [address] PCP - [facility] Medicine 07/07/18 Charbel Cosby [address] [place] [address] Referring Orthopedics 07/18/22 Sulky Driver Relationship Specialty Start Date End Date Charbel Rodriguez DO [address] [place] [address] PCP - [facility] Medicine 07/07/18 Charbel Cosby [address] [place] [address] Referring Orthopedics 07/18/22 Team Status: [...] or prosecute any alcohol or drug abuse patient.[facility] the event this information is protected by the Federal Confidentiality of Alcohol and Drug Abuse Patient Records regulations: The Federal rules restrict any use of the information to criminally investigate or prosecute any alcohol or drug abuse patient.[facility] DublinIn the event this information is protected by the Federal Confidentiality of Alcohol and Drug Abuse Patient Records regulations: The Federal rules restrict any use of the information to criminally investigate or prosecute any alcohol or drug abuse patient.[facility] DublinIn the event this information is protected by the Federal Confidentiality of Alcohol and Drug Abuse Patient Records regulations: The Federal rules restrict any use of the information to criminally investigate or prosecute any alcohol or drug abuse patient.[facility] DublinIn the event this information is protected by the Federal Confidentiality of Alcohol and Drug Abuse Patient Records regulations: The Federal rules restrict any use of the information to criminally investigate or prosecute any alcohol or drug abuse patient.[facility] DublinIn the event this information is protected by the Federal Confidentiality of Alcohol and Drug Abuse Patient Records regulations: The Federal rules restrict any use of the information to criminally investigate or prosecute any alcohol or drug abuse patient.[facility] DublinIn the event this information is protected by the Federal Confidentiality of Alcohol and Drug Abuse Patient Records regulations: The Federal rules restrict any use of the information to criminally investigate or prosecute any alcohol or drug abuse patient.[facility] DublinIn the event this information is protected by the Federal Confidentiality of Alcohol and Drug Abuse Patient Records regulations: The Federal rules restrict any use of the information to criminally investigate or prosecute any alcohol or drug abuse patient.[facility] DublinIn the event this information is protected by the Federal Confidentiality of Alcohol and Drug Abuse Patient Records regulations: The Federal rules restrict any use of the information to criminally investigate or prosecute any alcohol or drug abuse patient.[facility] DublinIn the event this information is protected by the Federal Confidentiality of Alcohol and Drug Abuse Patient Records regulations: The Federal rules restrict any use of the information to criminally investigate or prosecute any alcohol or drug abuse patient.[facility] DublinIn the event this information is protected by the Federal Confidentiality of Alcohol and Drug Abuse Patient Records regulations: The Federal rules restrict any use of the information to criminally investigate or prosecute any alcohol or drug abuse patient.[facility] DublinIn the event this information is protected by the Federal Confidentiality of Alcohol and Drug Abuse Patient Records regulations: The Federal rules restrict any use of the information to criminally investigate or prosecute any alcohol or drug abuse patient.[facility] DublinIn the event this information is protected by the Federal Confidentiality of Alcohol and Drug Abuse Patient Records regulations: The Federal rules restrict any use of the information to criminally investigate or prosecute any alcohol or drug abuse patient.[facility] DublinIn the event this information is protected by the Federal Confidentiality of Alcohol and Drug Abuse Patient Records regulations: The Federal rules restrict any use of the information to criminally investigate or prosecute any alcohol or drug abuse patient.[facility] DublinIn the event this information is protected by the Federal Confidentiality of Alcohol and Drug Abuse Patient Records regulations: The Federal rules restrict any use of the information to criminally investigate or prosecute any alcohol or drug abuse patient.[facility] DublinIn the event this information is protected by the Federal Confidentiality of Alcohol and Drug Abuse Patient Records regulations: The Federal rules restrict any use of the information to criminally investigate or prosecute any alcohol or drug abuse patient.[facility] DublinIn the event this information is protected by the Federal Confidentiality of Alcohol and Drug Abuse Patient Records regulations: The Federal rules restrict any use of the information to criminally investigate or prosecute any alcohol or drug abuse patient.[facility] DublinIn the event this information is protected by the Federal Confidentiality of Alcohol and Drug Abuse Patient Records regulations: The Federal rules restrict any use of the information to criminally investigate or prosecute any alcohol or drug abuse patient.[facility] DublinIn the event this information is protected by the Federal Confidentiality of Alcohol and Drug Abuse Patient Records regulations: The Federal rules restrict any use of the information to criminally investigate or prosecute any alcohol or drug abuse patient.[facility] DublinIn the event this information is protected by the Federal Confidentiality of Alcohol and Drug Abuse Patient Records regulations: The Federal rules restrict any use of the information to criminally investigate or prosecute any alcohol or drug abuse patient.[facility] DublinIn the event this information is protected by the Federal Confidentiality of Alcohol and Drug Abuse Patient Records regulations: The Federal rules restrict any use of the information to criminally investigate or prosecute any alcohol or drug abuse patient.[facility] Reason for Visit (unrecogniz ed section and content) Reason Comments Radio Gen RMP Specialty Diagnoses / Procedures Referred By Contac t Referred To Contact XR IMAGING Diagnoses Osteochondritis dissecans of right talus Procedures XR ANKLE GENERAL 3V AP/LAT/OBL RIGHT RADEX ANKLE COMPLETE MINIMUM [place] [address] [place] [address] [place] [address] Referral ID Status Reason Start Date Expiration Date V isits Requested Visits Authorized [id number] Closed Auto-Generate d Referral 11/02/2022 11/30/2023 1 [...] Expiration Date V isits Requested Visits Authorized [id number] Closed Auto-Generate d Referral 01/02/2023 01/31/2024 1 [...] BE BASED ON THE PRIMARY CLINICAL RECORDS. [employer] [facility]. provides no warranty or guarantee of the accuracy or completeness of information in this document.
[2024-06-24 21:11] LABS: Internal Control Within Normal Limits; Strep A Antigen Screen Negative
[2024-06-24 21:22] LABS: Internal Control Within Normal Limits; SARS-CoV-2 Ag NEGATIVE (NEGATIVE)
--- NOTE | 2024-06-24 21:38 | ED_ITS ---
HPI - URI/Sore Throat General Chief Complaint: Upper Respiratory Infection Stated Complaint: sore throat Time Seen by Provider: 06/24/24 21:37 Source: patient History of Present Illness HPI Narrative: patient presents complaining of cough and sore throat. ill for a couple of days. Not short of breath. Several of her children have similar URI symptoms . She is concerned about possible COVID19 infection and presents for eval. No abdominal pain, nausea or vomiting . Able to swallow without difficulty. No fever Related Data Previous Rx's ?Medication ?Instructions ?Recorded ibuprofen 800 mg tablet 800 mg PO Q8H PRN pain 14 days #40 04/13/24 tabs oxycodone-acetaminophen 5 mg-325 1 tab PO Q6H PRN pain 7 days #28 04/13/24 mg tablet (Percocet) tabs Allergies Allergy/AdvReac Type Severity Reaction Status Date / Time naproxen [From Aleve] Allergy Severe Verified 04/25/24 20:45 latex Allergy Verified 04/25/24 20:45 Review of Systems ROS Status of ROS 10 or more systems reviewed and unremark able except as noted in history and below [facility] Medical History (Updated 06/24/24 @ 21:47 by Ang Curiel MD) Frequent headaches ?R51.9 - Headache, unspecified (ICD-10) GERD (gastroesophageal reflux disease) ?K21.9 - Gastro-esophageal reflux disease without esophagitis (ICD-10) Seizures ?R56.9 - Unspecified convulsions (ICD-10) Irregular heart beat ?I49.9 - Cardiac arrhythmia, unspecified (ICD-10) PVC (premature ventricular contraction) ?I49.3 - Ventricular premature depolarization (ICD-10) Anemia ?D64.9 - Anemia, unspecified (ICD-10) Depression ?F32.A - Depression, unspecified (ICD-10) Anxiety ?F41.9 - Anxiety disorder, unspecified (ICD-10) Surgical History (Updated 04/13/24 @ 06:32 by Alber Avila) Hx of section ?Z98.891 - History of uterine scar from previous surgery (ICD-10) Hx of tonsillectomy ?Z90.89 - Acquired absence of other organs (ICD-10) History of ankle surgery ?Z98.890 - Other specified postprocedural states (ICD-10) Family History (Updated 04/13/24 @ 06:06 by Alber Avila) Grandmother Family history of CHF (congestive heart failure) Family history of diabetes mellitus Atrial fibrillation Grandfather Family history of CHF (congestive heart failure) Family history of hypertension Aunt Family history of myocardial infarction Uncle Family history of stroke Atrial fibrillation Brother Cerebral palsy Social History (Updated 04/13/24 @ 06:39 by Alber Avila) Within the past year, how often did you have a drink containing alcohol: never Within the past year, how often did you have six or more drinks on one occasion: never Score interpretation: A score less than 3 is consistent with normal alcohol consumption. Smoking status: Former smoker Non-prescribed substance use: denies use Highest level of school completed/degree received: high school graduate Are you now , , , , never or living with a partner: living with partner In a typical week, how many times do you talk on the telephone with family, friends, or neighbors: 3 or more times per week How often do you get together with friends or relatives: 3 or more times per week Do you think of yourself as: straight/heterosexual Gender Identity: female Exam Constitutional Vital Signs, click to edit/add: Last Vital Signs Temp 98.4 F 06/24/24 20:20 Pulse 68 06/24/24 20:20 Resp 16 06/24/24 20:20 BP 155/99 H 06/24/24 20:20 Pulse Ox 99 06/24/24 20:20 O2 Del Method Room Air 06/24/24 20:20 Common normals: no apparent distress, average body habitus, oriented x3, no limitations, healthy appearing, alert and well nourished [facility] Common normals: normocephalic and head/scalp atraumatic Eye Common normals: EOMs intact bilaterally and conjunctivae normal Respiratory Common normals: normal respiratory effort, no retractions, no use of accessory muscles and clear to auscultation bilaterally Cardio Common normals: regular rate, regular rhythm, S1 normal heart sound and S2 normal heart sound GI Common normals: Normal to inspection, nondistended, normoactive bowel sounds present and soft to palpation Extremity Common normals: normal to inspection and full ROM Neuro Common normals: oriented x3, CN's II-XII intact bilaterally, moves all extremities and no focal motor deficits Psych Appearance: grossly normal Course Vital Signs Vital signs: Vital Signs Temperature 98.4 F 06/24/24 20:20 Pulse Rate 68 06/24/24 20:20 Respiratory Rate 16 06/24/24 20:20 Blood Pressure 155/99 H 06/24/24 20:20 Pulse Oximetry 99 06/24/24 20:20 Oxygen Delivery Method Room Air 06/24/24 20:20 Temperature 98.4 F 06/24/24 20:20 Pulse Rate 68 06/24/24 20:20 Respiratory Rate 16 06/24/24 20:20 Blood Pressure 155/99 H 06/24/24 20:20 Pulse Oximetry 99 06/24/24 20:20 Oxygen Delivery Method Room Air 06/24/24 20:20 MDM - URI/Sore Throat MDM Narrative Medical decision making narrative: patient presents with URI symptoms of cough and sore throat for a couple of days. Not short of breath. Several of her children have same symptoms and she presented for COVID19 testing. she also has sore throat. COVID19 and strep screen ordered both COVID 19 and strep screen are neg. mother informed of the above and discharged home with working diagnosis of URI viral infection Lab Data Labs: Lab Results 06/24/24 Range/Units 20:23 SARS-CoV-2 Ag (CV2AG) Negative (NEGATIVE) Streptococcus Screen Negative Discharge Plan Discharge Stand Alone Forms: Work/School Release, Portal Instructions Chief Complaint: Upper Respiratory Infection Clinical Impression: Upper respiratory infection Patient Disposition: Home, Self-Care Prescriptions / Home Meds: No Action ibuprofen 800 mg tablet 800 mg PO Q8H PRN (Reason: pain) 14 Days Qty: 40 0RF oxycodone-acetaminophen [Percocet] 5-325 mg tablet 1 tab PO Q6H PRN (Reason: pain) 7 Days Qty: 28 0RF Print Language: Belarusian Instructions: Upper Respiratory Infection (ED) Additional Instructions: follow up with your doctor next week for recheck Referrals: CHARBEL RODRIGUEZ [Primary Care Provider] - 1 week
== END 2024-06-24 22:01 | disposition home or self-care (01) ==
PROVIDERS: Emergency Provider Internal Medicine; PCP Family Medicine
DX: J06.9 Acute upper respiratory infection, unspecified (principal); Z87.891 Personal history of nicotine dependence; Z20.822 Contact with and (suspected) exposure to COVID-19
CPT/HCPCS: 87070; 87150; 87811; 87880; 99284

== ENCOUNTER 2024-11-06 20:47 | Emergency (ER) | payer OTHER, SELFPAY ==
[2024-11-06 20:52] VITALS: BP 132/99; PULSE 60; TEMP 36.8; O2SAT 98; BMI 44.9
--- OUTSIDE RECORDS SUMMARY | 2024-11-06 20:53 | XMS_ITS | CCD ---
Author Organization [facility] Care Team Providers Care Operations Management Professionals Name Role Phone DO Charbel Rodriguez Primary [...] Attending Unavailable HAY, DR ADAME Consulting Unavailable GIRROSEY, DR BARGER Admitting Unavailable GIRROSEY, DR BARGER Attending Unavailable GIRROSEY, DR BARGER Primary Care Unavailable GIRROSEY, DR BARGER Consulting Unavailable GIRROSEY, DR BARGER Admitting Unavailable GIRROSEY, DR BARGER Attending Unavailable GIRROSEY, DR BARGER Primary Care Unavailable GIRROSEY, DR BARGER Primary Care Unavailable CHRISTIANO CURIEL Admitting Unavailable CHRISTIANO CURIEL Attending Unavailable HEATHER CHAND Consulting Unavailable CHARBEL TAPIA Consulting Unavailable Ronda Guevara Unavailable CHARBEL RODRIGUEZ Primary Care Unavailable CHARBEL RODRIGUEZ Primary Care Unavailable CHARBEL RODRIGUEZ Primary Care Unavailable MICHAEL, CHARBEL ARROYO Primary Care Unavailable TESSA SANCHEZ Attending Unavailable CHARBEL RODRIGUEZ Primary Care Unavailable TESSA SANCHEZ Attending Unavailable CHARBEL RODRIGUEZ Primary Care Unavailable CHARBEL RODRIGUEZ Primary Care Unavailable TESAS SANCHEZ Attending Unavailable CHARBEL RODRIGUEZ Primary Care Unavailable CHARBEL RODRIGUEZ Primary Care Unavailable TESSA SANCHEZ Attending Unavailable TESSA SANCHEZ Referring Unavailable CHARBEL RODRIGUEZ Primary Care Unavailable MICHAEL, CHARBEL ARROYO Primary Care Unavailable TESSA SANCHEZ Attending Unavailable CHARBEL RODRIGUEZ Primary Care Unavailable TESSA SANCHEZ Attending Unavailable CHARBEL RODRIGUEZ Primary Care Unavailable CHARBEL COSBY Referring Unavailable TESSA SANCHEZ Attending Unavailable TESSA SANCHEZ Referring Unavailable CHARBEL RODRIGUEZ Primary Care Unavailable CHARBEL RODRIGUEZ Primary Care Unavailable Charbel Rodriguez DO Primary Care Provider DO Charbel Rodriguez Primary Care Provider Ryan [...] SONIA Jerez Attending Unavailable VISCI, SONIA A Attending Unavailable VISCI, SONIA A Referring Unavailable MICHAEL, RYAN Attending Unavailable MICHAEL, RYAN Attending Unavailable MICHAEL, RYAN Attending Unavailable MICHAEL, RYAN Attending Unavailable MICHAEL, RYAN Attending Unavailable ELMER, SYEDA Attending Unavailable VISCI, SONIA Jerez Attending Unavailable VISCI, SONIA Solitario Referring Unavailable Michael, DO Davis Attending Provider [phone] Allergies Allergy Classification Reported Allergen(s) Allergy Type Date of Onset Reaction(s) Facility Ethinyl Estradiol (1 source) Ethinyl Estradiol Drug Allergy 07-15-20 23 [facility] Latex (1 source) Latex Substance Allergy 07-15-20 23 Rash, rash,blisters [facility] Levonorgestrel (1 source) Levonorgestrel Drug Allergy 07-15-20 23 [facility] NSAIDs (1 source) Naproxen Drug Allergy 07-15-20 23 Hives [facility] Phentermine (1 source) Phentermine Drug Allergy 07-15-20 23 chest pain/ elevated BP [facility] tomato allergenic extract (1 source) tomato allergenic extract Drug Allergy 07-15-20 23 stomach upset [facility] (20 sources) Latex; Translations: [Latex] Propensity to adverse reactions 07-07-20 22 Rash, Rash, Blisters, rash,blisters, Rash, rash,blisters [facility] (13 sources) Naproxen; Translations: [NAPROXEN] Drug Allergy 08-01-20 18 Hives [facility] (14 sources) Naproxen; Translations: [Aleve] Drug Allergy 11-25-19 21 Hives [facility] Repository (13 sources) Seasonal allergy Propensity to adverse reactions Unknown [facility] Other (13 sources) Tomato Products Propensity to adverse reactions stomach upset [facility] Other (1 source) natural latex rubber Drug allergy (disorder) 09-04-20 21 [facility] Repository (8 sources) Seasonale Drug allergy Unknown [facility] Other (8 sources) Tomatoes Drug allergy stomach upset [facility] Other (6 sources) Phentermine Drug Allergy 07-15-20 chest pain/ elevated BP [facility] (2 sources) Ethinyl Estradiol Drug Allergy 07-15-20 [facility] Repository (2 sources) Levonorgestrel Drug Allergy 07-15-20 [facility] Repository (1 source) Phentermine Drug Allergy 07-15-20 [facility] Repository (2 sources) tomato allergenic extract Drug Allergy 07-15-20 stomach upset [facility] Repository Medications Current Medications Medication Drug Class(es) Dates Sig (Normalized) Sig (Original) Azithromycin (1 source) Macrolide Antimicrobial Start: 06-16-20 Azithromycin Active 0 PO .COMPLEX June 16, 2024 12:00am For 250 mg dose pack: take 500 mg today (day 1), then 250 mg for 4 days (days 2-5) PO brompheniramine maleate 0.4 mg/ml / dextromethorphan hydrobromide 2 mg/ml / pseudoephedrine hydrochloride 6 mg/ml oral solution (5 sources) alpha-Adrenergic Agonist, Uncompetitive R-lslxdu-K-aspartat e Receptor Antagonist, Sigma-1 Agonist Start: 12-07-19 take 10 mL by mouth every six hours Ndqvghqgq-Xlyatjfl-QH 30-2-10 MG/5ML 10 mL Orally every 6 [...] tablet (20 sources) Serotonin Reuptake Inhibitor Start: 06-15-20 take 50 mg by mouth once daily Sertraline Active 50 MG PO Daily June 15, 2024 3:54pm Start: 07-08-2023 Zoloft 50 MG t solomon 1 and 1/2 tablet Orally Once a day for 30 days Jun, Active Start: 07-07-2022 End: 06-15-2024 Sertraline Discontinued MG T ABLET July 07, 2022 12:00am June 15, 2024 3:55pm Start: 01-24-2022 Zoloft 50 MG 1 and [...] / HYDROcodone bitartrate 5 mg oral tablet (3 sources) Opioid Agonist Start: End: Hydrocodone-Acetamino phen Discontinued 1 TAB PO As Directed February 12, 2018 12:00am March 31, 2018 2:07pm ALPRAZolam 0.5 mg oral tablet (5 sources) Benzodiazepine Start: End: take 0.5 mg by mouth once daily Alprazolam Discontinued 0.5 MG PO Daily November 29, 2017 1:00am April 18, 2021 7:19pm Comment on above: Take 0.5 mg by mouth as needed. amoxicillin 875 mg oral tablet (1 source) Penicillin-class Antibacterial Start: End: take 875 mg by mouth twice daily Amoxicillin Discontinued 875 MG PO Twice daily June 15, 2024 12:00am June 16, 2024 11:55am atropine sulfate 0.025 mg / diphenoxylate hydrochloride 2.5 mg oral tablet (3 sources) Anticholinergic, Cholinergic Muscarinic Antagonist, Antidiarrheal Start: [...] on above: Take 1 capsule by mo [facility] four times daily. cyclobenzaprine hydrochloride 5 [...] Comment on above: [facility] needed. 1 in the morning, 1 in the after, 2 at hs prn for back pain docusate sodium 100 mg oral capsule (3 sources) Start: End: take 1 capsule by [...] Not-Taking HYDROmorphone hydrochloride 2 mg oral tablet (3 sources) Opioid Agonist Start: End: take 2 mg by mouth every four hours Hydromorphone Discontinued 2 MG PO Q4H 10 November 30, 2021 July 07, 2022 6:05pm hydrOXYzine hydrochloride 25 mg oral tablet (3 sources) Antihistamine Start: End: take 25 mg [...] Jan, Not-Taking metoclopramide 10 mg oral tablet (3 sources) Dopamine-2 Receptor Antagonist Start: 05-30-2021 End: 08-31-2021 take 1 tablet by mouth every six hours Metoclopramide Hcl (Reglan) 10 mg tablet Discontinued 10 MG PO Q6H May 30, 2021 12:00am August 31, 2021 12:52pm metroNIDAZOLE 500 mg oral tablet (3 sources) Nitroimidazole Antimicrobial Start: 02-12-2018 End: 03-31-2018 [...] daily. ondansetron 4 mg disintegrating oral tablet (9 sources) Serotonin-3 Receptor Antagonist Start: 08-31-2021 End: [...] Problem Date Documented Date Episodic/Chronic Abdominal pain (4 sources) Abdominal pain; Translations: [Unspecified abdominal pain] 11-29-2017 Episodic Anxiety disorders (20 sources) Anxiety; Translations: [Anxiety disorder, unspecified] Onset: 08-14-2022 08-14-2022 Chronic Cardiac dysrhythmias (20 sources) Ventricular premature beats; Translations: [Ventricular premature depolarization] 07-02-2018 Chronic Cardiac dysrhythmias (20 sources) Bradycardia; Translations: [Bradycardia, unspecified] Onset: 09-02-2018 07-02-2018 Episodic Diabetes mellitus without complication (1 source) Hyperglycemia; Translations: [Hyperglycemia, unspecified] 05-27-2024 Episodic Diseases of white blood cells (15 sources) Leukocytosis; Translations: [Elevated white blood cell count, unspecified] Chronic Disorders usually diagnosed in infancy, childhood, or adolescence (20 sources) Separation anxiety; Translations: [Separation anxiety disorder of childhood] Chronic Esophageal disorders (20 sources) Gastroesophageal reflux disease; Translations: [Gastro-esophageal reflux disease without esophagitis] Chronic Fluid and electrolyte disorders (3 sources) Dehydration; Translations: [Dehydration] 07-02-2018 Episodic Fracture of lower limb (1 source) Other fracture of unspecified lower leg, initial encounter for closed fracture Episodic Headache; including migraine (3 sources) Headache; Translations: [Headache] 07-02-2018 Episodic Hemorrhage during ; abruptio placenta; placenta previa (3 sources) Threatened miscarriage; Translations: [Threatened ] 04-18-2021 Episodic Inflammatory diseases of female pelvic organs (3 sources) Inflammation of cervix; Translations: [Inflammatory disease of cervix uteri] 02-12-2018 Episodic Malaise and fatigue (2 sources) Other fatigue Episodic Mood disorders (20 sources) Recurrent major depressive episodes; Translations: [Major depressive disorder, recurrent, unspecified] Chronic Nausea and vomiting (1 source) Nausea Episodic Nonspecific chest pain (4 sources) Atypical chest pain; Translations: [Other chest [...] [Vomiting of , unspecified] 05-30-2021 Episodic Other complications of (1 source) Vomiting of , unspecified; Translations: [Nausea and vomiting during ] 05-30-2021 Episodic Other endocrine disorders (20 sources) Hypoglycemia; Translations: [Hypoglycemia, unspecified] Chronic Other non-traumatic joint disorders (3 sources) Acute ankle pain; Translations: [Pain in 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] 07-07-2022 Episodic Other nutritional; endocrine; and metabolic disorders (20 sources) Body mass index 40+ - severely obese; Translations: [Body mass index (BMI) 40.0-44.9, adult] Onset: 08-14-2022 Chronic Other nutritional; endocrine; and metabolic disorders (1 source) Body mass index (BMI) 40.0-44.9, adult; Translations: [BMI 40.0-44.9, adult ([facility])] Onset: 08-14-2022 Chronic Other nutritional; endocrine; and [...] Sciatica; Translations: [Sciatica, unspecified side] Episodic Syncope (3 sources) Near syncope; Translations: [Syncope and collapse] 11-29-2017 Episodic Unclassified (3 sources) LOW BACK PAIN, UNSPECIFIED; Translations: [LOW BACK PAIN, UNSPECIFIED] Onset: 08-03-2022 Unclassified (3 sources) CONTACT W/AND (SUSP) EXPOS COVID-19; Translations: [CONTACT W/AND (SUSP) EXPOS COVID-19] Onset: 06-29-2022 Unclassified (1 source) Acute bilateral low back pain without sciatica; Translations: [Acute bilateral low back pain without sciatica] Onset: 08-14-2022 Viral infection (3 sources) Viral disease; Translations: [Viral infection, unspecified] [...] Test Name Value Interpretation Reference Range Facility Laboratory - Microbiology an d Antimicrobial susceptibilityon 06-24-2024 S. pyogenes Ag Ql (Unsp spec) Negative [facility] SARS-CoV-2 (COVID-19) RNA HAROLDO+probe Ql (Unsp spec) Negative NEGATIVE [facility] Comment on above: This test has not be en FDA cleared or approved, but has beenauthorized by the FDA under an Emergency Use Authorization(EUA) for use by authorized laboratories certified underIA that meet the requirements to perform moderate or highcomplexity testing. This test has been authorized only forthe detection of proteins from SARS-CoV-2, not for any otherviruses or pathogens. The emergency use of this test isauthorized for the duration of the declaration thatcircumstances exist justifying the authorization ofemergency use of in vitro diagnostic tests for detectionand/or diagnosis of Covid-19 under section 564(b)(1) of theAct, 21 U.S.C. 360bbb-3(b)(1), unless the declaration isterminated or authorization is revoked sooner. Glucose mean value [Mass/vol ume] in Blood Estimated from glycated hemoglobinon 05-28-2024 Average glucose Estimated from glycated hemoglobin (Bld) [Mass/Vol] 111 mg/dL [facility] Laboratory - Hematology and Cell countson 05-28-2024 HbA1c (Bld) [Mass fraction] 5.5 % 4.5-6.2 [facility] Comment on above: ADA RECOMMENDED LIMI T 4.0 - 6.0ADA THERAPEUTIC TARGET < 7.0ACTION SUGGESTED> 7.0 Basophils Auto (Bld) [#/Vol] on 04-25-2024 Basophils (Bld) [#/Vol] 0.0 10 3/uL 0.0-0.1 [facility] Basophils/100 WBC Auto (Bld) on 04-25-2024 Basophils/100 WBC (Bld) 0.3 % 0.2-2.0 [facility] Eosinophils/100 WBC Auto (Bl d)on 04-25-2024 Eosinophils/100 WBC (Bld) 4.4 % 0.9-7.0 [facility] Erythrocyte distribution wid th Auto (RBC) [Ratio]on 04-25-2024 Erythrocyte distribution width (RBC) [Ratio] 14.4 % 11.0-15.0 [facility] Estimated glomerular filtrat ion rate (GFR) non- Americanon 04-25-2024 GFR/1.73 sq M.predicted among non-blacks MDRD (S/P/Bld) [Vol rate/Area] mL/min/{1.73_m2} >=60 [facility] Globulin Calc (S) [Mass/Vol] on 04-25-2024 Globulin (S) [Mass/Vol] 4.3 g/dL [facility] Hematocrit Auto (Bld) [Volum e fraction]on 04-25-2024 Hematocrit (Bld) [Volume fraction] 35.7 % Low 36.0-48.0 [facility] Hemoglobin [Mass/volume] in Bloodon 04-25-2024 Hemoglobin (Bld) [Mass/Vol] 11.2 g/dL Low 12.0-16.0 [facility] Laboratory - Chemistry and C hemistry - challengeon 04-25-2024 Albumin [Mass/Vol] 2.9 g/dL Low 3.4-5.0 [facility] ALP [Catalytic activity/Vol] 88 U/L 46-116 [facility] ALT [Catalytic activity/Vol] 16 U/L 14-59 [facility] AST [Catalytic activity/Vol] 9 U/L Low 15-37 [facility] Bilirubin [Mass/Vol] 0.1 mg/dL Low 0.2-1.0 [facility] Calcium [Mass/Vol] 9.4 mg/dL 8.5-10.1 [facility] Chloride [Moles/Vol] 103 mmol/L 98-107 [facility] CO2 [Moles/Vol] 28.4 mmol/L 21.0-32.0 [facility] Creatinine [Mass/Vol] 0.78 mg/dL 0.55-1.02 [facility] GFR/1.73 sq M.predicted MDRD (S/P/Bld) [Vol rate/Area] mL/min/{1.73_m2} >=60 [facility] Glucose [Mass/Vol] 96 mg/dL 74-106 [facility] Lactate [Moles/Vol] 0.9 mmol/L 0.4-2.0 [facility] Potassium [Moles/Vol] 4.1 mmol/L 3.5-5.1 [facility] Protein [Mass/Vol] 7.2 g/dL 6.4-8.2 [facility] Sodium [Moles/Vol] 140 mmol/L 136-145 [facility] Urea nitrogen [Mass/Vol] 19.0 mg/dL High 7.0-18.0 [facility] Urea nitrogen/Creatinine [Mass ratio] 24.4 mg/mg [facility] Laboratory - Hematology and Cell countson 04-25-2024 Immature granulocytes/100 WBC (Bld) 0.3 % 0.0-0.5 [facility] Leukocytes [#/volume] correc zee for nucleated erythrocytes in Blood by Automated counon 04-25-2024 WBC corrected for nucl RBC Auto (Bld) [#/Vol] 7.9 10 3/uL 4.0-11.0 [facility] Lymphocytes Auto (Bld) [#/Vo l]on 04-25-2024 Lymphocytes (Bld) [#/Vol] 3.4 10 3/uL 1.2-3.8 [facility] Lymphocytes/100 WBC Auto (Bl d)on 04-25-2024 Lymphocytes/100 WBC (Bld) 42.6 % 20.5-60.0 [facility] MCH Auto (RBC) [Entitic mass ]on 04-25-2024 MCH (RBC) [Entitic mass] 29.3 pg 26.7-34.0 [facility] MCHC Auto (RBC) [Mass/Vol]on 04-25-2024 MCHC (RBC) [Mass/Vol] 31.4 g/dL 29.9-35.2 [facility] MCV Auto (RBC) [Entitic vol] on 04-25-2024 MCV (RBC) [Entitic vol] 93.5 fL 81.0-99.0 [facility] Monocytes Auto (Bld) [#/Vol] on 04-25-2024 Monocytes (Bld) [#/Vol] 0.5 10 3/uL 0.3-0.8 [facility] Monocytes/100 WBC Auto (Bld) on 04-25-2024 Monocytes/100 WBC (Bld) 6.6 % 1.7-12.0 [facility] Neutrophils Auto (Bld) [#/Vo l]on 04-25-2024 Neutrophils (Bld) [#/Vol] 3.6 10 3/uL 1.4-6.5 [facility] Neutrophils/100 WBC Auto (Bl d)on 04-25-2024 Neutrophils/100 WBC (Bld) 45.8 % 43.0-75.0 [facility] No Panel Informationon 04-25 Eosinophils # (Auto) 0.4 10 3/uL 0.0-0.7 [facility] Immature Granulocyte # (Auto) 0.02 10 3/uL 0.00-0.03 [facility] Platelet mean volume Auto (B ld) [Entitic vol]on 04-25-2024 Platelet mean volume (Bld) [Entitic vol] 9.3 fL Low 9.5-13.5 [facility] Platelets Auto (Bld) [#/Vol] on 04-25-2024 Platelets (Bld) [#/Vol] 458 10 3/uL High 150-450 [facility] RBC Auto (Bld) [#/Vol]on RBC (Bld) [#/Vol] 3.82 10 6/uL Low 4.20-5.40 [facility] Serum or plasma albumin/glob ulin mass ratioon 04-25-2024 Albumin/Globulin [Mass ratio] 0.7 {ratio} [facility] Serum or plasma anion gap de terminationon 04-25-2024 Anion gap [Moles/Vol] 12.7 mmol/L [facility] Basophils Auto (Bld) [#/Vol] on 04-14-2024 Basophils (Bld) [#/Vol] 0.0 10 3/uL 0.0-0.1 [facility] Basophils/100 WBC Auto (Bld) on 04-14-2024 Basophils/100 WBC (Bld) 0.3 % 0.2-2.0 [facility] Eosinophils/100 WBC Auto (Bl d)on 04-14-2024 Eosinophils/100 WBC (Bld) 1.7 % 0.9-7.0 [facility] Erythrocyte distribution wid th Auto (RBC) [Ratio]on 04-14-2024 Erythrocyte distribution width (RBC) [Ratio] 14.8 % 11.0-15.0 [facility] Hematocrit Auto (Bld) [Volum e fraction]on 04-14-2024 Hematocrit (Bld) [Volume fraction] 25.6 % Low 36.0-48.0 [facility] Hemoglobin [Mass/volume] in Bloodon 04-14-2024 Hemoglobin (Bld) [Mass/Vol] 8.1 g/dL Low 12.0-16.0 [facility] Laboratory - Hematology and Cell countson 04-14-2024 Immature granulocytes/100 WBC (Bld) 1.0 % High 0.0-0.5 [facility] Leukocytes [#/volume] correc zee for nucleated erythrocytes in Blood by Automated counon 04-14-2024 WBC corrected for nucl RBC Auto (Bld) [#/Vol] 13.3 10 3/uL High 4.0-11.0 [facility] Lymphocytes Auto (Bld) [#/Vo l]on 04-14-2024 Lymphocytes (Bld) [#/Vol] 3.4 10 3/uL 1.2-3.8 [facility] Lymphocytes/100 WBC Auto (Bl d)on 04-14-2024 Lymphocytes/100 WBC (Bld) 25.5 % 20.5-60.0 [facility] MCH Auto (RBC) [Entitic mass ]on 04-14-2024 MCH (RBC) [Entitic mass] 29.1 pg 26.7-34.0 [facility] MCHC Auto (RBC) [Mass/Vol]on 04-14-2024 MCHC (RBC) [Mass/Vol] 31.6 g/dL 29.9-35.2 [facility] MCV Auto (RBC) [Entitic vol] on 04-14-2024 MCV (RBC) [Entitic vol] 92.1 fL 81.0-99.0 [facility] Monocytes Auto (Bld) [#/Vol] on 04-14-2024 Monocytes (Bld) [#/Vol] 1.1 10 3/uL High 0.3-0.8 [facility] Monocytes/100 WBC Auto (Bld) on 04-14-2024 Monocytes/100 WBC (Bld) 7.9 % 1.7-12.0 [facility] Neutrophils Auto (Bld) [#/Vo l]on 04-14-2024 Neutrophils (Bld) [#/Vol] 8.5 10 3/uL High 1.4-6.5 [facility] Neutrophils/100 WBC Auto (Bl d)on 04-14-2024 Neutrophils/100 WBC (Bld) 63.6 % 43.0-75.0 [facility] No Panel Informationon 04-14 Eosinophils # (Auto) 0.2 10 3/uL 0.0-0.7 [facility] Immature Granulocyte # (Auto) 0.13 10 3/uL High 0.00-0.03 [facility] Platelet mean volume Auto (B ld) [Entitic vol]on 04-14-2024 Platelet mean volume (Bld) [Entitic vol] 10.4 fL 9.5-13.5 [facility] Platelets Auto (Bld) [#/Vol] on 04-14-2024 Platelets (Bld) [#/Vol] 271 10 3/uL 150-450 [facility] RBC Auto (Bld) [#/Vol]on RBC (Bld) [#/Vol] 2.78 10 6/uL Low 4.20-5.40 [facility] Basophils Auto (Bld) [#/Vol] on 04-13-2024 Basophils (Bld) [#/Vol] 0.0 10 3/uL 0.0-0.1 [facility] Basophils/100 WBC Auto (Bld) on 04-13-2024 Basophils/100 WBC (Bld) 0.2 % 0.2-2.0 [facility] Buprenorphine [Presence] in Urineon 04-13-2024 Buprenorphine Ql (U) Negative NEGATIVE [facility] Comment on above: DRUG CLASS TEST SYST EM CUT-OFF CONCENTRATIONS ARE ASFOLLOWS:AMP (Amphetamine): 500 ng/mLBAR (Barbiturates): 200 ng/mLBZO (Benzodiazepines): 150 ng/mLBUP (Buprenorphine): 10 ng/mLCOC (Cocaine): 150 ng/mLmAMP (Methamphetamine): 500 ng/mLMTD (Methadone): 200 ng/mLOPI (Opiates): 100 ng/mLOXY (Oxycodone): 100 ng/mLPCP (Phencyclidine): 25 ng/mLTHC (Cannabinoids): 50 ng/mLTCA (Trycyclic Antidepressants): 300 ng/mL Eosinophils/100 WBC Auto (Bl d)on 04-13-2024 Eosinophils/100 WBC (Bld) 1.2 % 0.9-7.0 [facility] Erythrocyte distribution wid th Auto (RBC) [Ratio]on 04-13-2024 Erythrocyte distribution width (RBC) [Ratio] 14.7 % 11.0-15.0 [facility] Hematocrit Auto (Bld) [Volum e fraction]on 04-13-2024 Hematocrit (Bld) [Volume fraction] 31.2 % Low 36.0-48.0 [facility] Hemoglobin [Mass/volume] in Bloodon 04-13-2024 Hemoglobin (Bld) [Mass/Vol] 10.1 g/dL Low 12.0-16.0 [facility] Sung 04-13-2024 L Specimen: [id number] Received: 04/13/24 Status: SY Warren Num: [id number] Spec Type: Surgical Subm Dr: Ryan Rodriguez Tissues: A Fallopian Tube - Sterilization (BILATERAL FALLOPIAN TUBES) B Placenta - 3rd Trimester (Greater than 28 weeks) (PLACENTA) Procedures: HE/6, Gross/Micro L5, Gross/Micro L2 Age/ Patient Sex Location Account Attending Physician PriscillaEdith Bong 28/F [facility] [id number] Ryan Rodriguez SPEC NUM: [id number] RECD: 04/13/24 STATUS: SY WARREN NUM: [id number] CIELO: 04/13/24- SUBM DR: Ryan Rodriguez ENTERED: 04/13/[address] [facility] [address]: Anna,Lab SPEC TYPE: Surgical DEPT: [facility] [...] amniotic fluid Repeat section, salpingectomy. ---- Specimen: [id number] Received: 04/13/24 Status: SY Warren Num: [id number] Spec Type: Surgical Subm Dr: Ryan Rodriguez Tissues: A Fallopian Tube - Sterilization (BILATERAL FALLOPIAN TUBES) B Placenta - 3rd Trimester (Greater than 28 weeks) (PLACENTA) Procedures: HE/6, Gross/Micro L5, Gross/Micro L2 ---- Patient: Edith Wells [id number] (Continued) ---- Specimen: [id number] Received: 04/13/24 (Continued) Signed (signature on file) Lashae Phipps MD 04/19/24 1544 ---- Specimen: [id number] Received: 04/13/24 Status: SY Warren Num: [id number] Spec Type: Surgical Subm Dr: Ryan Rodriguez Tissues: A Fallopian Tube - Sterilization (BILATERAL FALLOPIAN TUBES) B Placenta - 3rd Trimester (Greater than 28 weeks) (PLACENTA) Procedures: HE/6, Gross/Micro L5, Gross/Micro L2 ---- Patient: Edith Wells [id number] (Continued) ---- Specimen: [id number] Received: 04/13/24-7663 (Continued) Gross Description A. Received in formalin [...] luminal center lined by unremarkable calhoun mucosa. Pipelaying Fitter sections of each tube are submitted in [...] adjacent (more content not included)... Normal [facility] Laboratory - Chemistry and C hemistry - challengeon 04-13-2024 Chloride [Moles/Vol] 106 mmol/L 98-107 [facility] CO2 [Moles/Vol] 22.8 mmol/L 21.0-32.0 [facility] Potassium [Moles/Vol] 3.8 mmol/L 3.5-5.1 [facility] Sodium [Moles/Vol] 140 mmol/L 136-145 [facility] Bilirubin Ql (U) Negative NEGATIVE [facility] Glucose (U) [Mass/Vol] Negative NEGATIVE [facility] Ketones Ql (U) TRACE mg/dL Abnormal NEGATIVE [facility] pH (U) 7.0 [pH] 5.0-9.0 [facility] Specific gravity (U) [Rel density] 1.025 1.005-1.025 [facility] Urobilinogen Qn (U) 0.2 {Vasquez'U}/dL 0.2-1.0 [facility] Laboratory - Drug toxicology on 04-13-2024 Amphetamines Ql (U) Negative NEGATIVE [facility] Benzodiazepines Ql (U) Negative NEGATIVE [facility] Cocaine Ql (U) Negative NEGATIVE [facility] Opiates Ql (U) Negative NEGATIVE [facility] Phencyclidine Ql (U) Negative NEGATIVE [facility] Laboratory - Hematology and Cell countson 04-13-2024 Immature granulocytes/100 WBC (Bld) 1.1 % High 0.0-0.5 [facility] Laboratory - Specimen inform ationon 04-13-2024 Appearance (U) CLEAR CLEAR [facility] Color (U) YELLOW YELLOW [facility] Laboratory - Urinalysison Amorphous sediment LM Ql (Urine sed) FEW [facility] Leukocyte esterase Test strip Ql (U) Negative NEGATIVE [facility] Mucus Ql (Urine sed) NONE SEEN NONE SEEN [facility] Nitrite Ql (U) Negative NEGATIVE [facility] Protein Ql (U) Negative NEG/TRACE [facility] Leukocytes [#/volume] correc zee for nucleated erythrocytes in Blood by Automated counon 04-13-2024 WBC corrected for nucl RBC Auto (Bld) [#/Vol] 12.9 10 3/uL High 4.0-11.0 [facility] Lymphocytes Auto (Bld) [#/Vo l]on 04-13-2024 Lymphocytes (Bld) [#/Vol] 3.6 10 3/uL 1.2-3.8 [facility] Lymphocytes/100 WBC Auto (Bl d)on 04-13-2024 Lymphocytes/100 WBC (Bld) 27.5 % 20.5-60.0 [facility] MCH Auto (RBC) [Entitic mass ]on 04-13-2024 MCH (RBC) [Entitic mass] 29.5 pg 26.7-34.0 [facility] MCHC Auto (RBC) [Mass/Vol]on 04-13-2024 MCHC (RBC) [Mass/Vol] 32.4 g/dL 29.9-35.2 [facility] MCV Auto (RBC) [Entitic vol] on 04-13-2024 MCV (RBC) [Entitic vol] 91.2 fL 81.0-99.0 [facility] Methadone [Presence] in Urin e by Screen methodon 04-13-2024 Methadone Screen Ql (U) Negative NEGATIVE [facility] Monocytes Auto (Bld) [#/Vol] on 04-13-2024 Monocytes (Bld) [#/Vol] 0.7 10 3/uL 0.3-0.8 [facility] Monocytes/100 WBC Auto (Bld) on 04-13-2024 Monocytes/100 WBC (Bld) 5.7 % 1.7-12.0 [facility] Neutrophils Auto (Bld) [#/Vo l]on 04-13-2024 Neutrophils (Bld) [#/Vol] 8.3 10 3/uL High 1.4-6.5 [facility] Neutrophils/100 WBC Auto (Bl d)on 04-13-2024 Neutrophils/100 WBC (Bld) 64.3 % 43.0-75.0 [facility] No Panel Informationon 04-13 Eosinophils # (Auto) 0.2 10 3/uL 0.0-0.7 [facility] Immature Granulocyte # (Auto) 0.14 10 3/uL High 0.00-0.03 [facility] Urine Bacteria MODERATE #/HPF Abnormal NONE SEEN [facility] Urine Barbiturates Screen Negative NEGATIVE [facility] Urine Culture Reflexed YES [facility] Urine Marijuana (THC) Screen Negative NEGATIVE [facility] Urine Methamphetamines Screen Negative NEGATIVE [facility] Urine Occult Blood Negative NEGATIVE [facility] Urine Other Casts NONE SEEN #/LPF NONE SEEN [facility] Urine Other Crystals Seen #/HPF Abnormal None Seen [facility] Urine RBC 0-2 #/HPF 0-2 [facility] Urine Squamous Epithelial Cells FEW #/LPF Abnormal NONE/RARE [facility] Urine WBC 0-2 #/HPF Abnormal NONE SEEN [facility] Platelet mean volume Auto (B ld) [Entitic vol]on 04-13-2024 Platelet mean volume (Bld) [Entitic vol] 10.8 fL 9.5-13.5 [facility] Platelets Auto (Bld) [#/Vol] on 04-13-2024 Platelets (Bld) [#/Vol] 357 10 3/uL 150-450 [facility] RBC Auto (Bld) [#/Vol]on RBC (Bld) [#/Vol] 3.42 10 6/uL Low 4.20-5.40 [facility] Serum or plasma anion gap de terminationon 04-13-2024 Anion gap [Moles/Vol] 15.0 mmol/L [facility] Urine tricyclic antidepressa nt measurementon 04-13-2024 Tricyclic antidepressants (U) [Mass/Vol] Negative NEGATIVE [facility] oxyCODONE+oxyMORphone [Prese nce] in Urine by Screen methodon 04-13-2024 oxyCODONE+oxyMORphone Screen Ql (U) Negative NEGATIVE [facility] No Panel InformationOrdered By: Ryan Rodriguez on 03-31-2024 Group B Streptococcus Culture [facility] Glucose mean value [Mass/vol ume] in Blood Estimated from glycated hemoglobinon 03-16-2024 Average glucose Estimated from glycated hemoglobin (Bld) [Mass/Vol] 114 mg/dL [facility] Laboratory - Hematology and Cell countson 03-16-2024 HbA1c (Bld) [Mass fraction] 5.6 % 4.5-6.2 [facility] Comment on above: ADA RECOMMENDED LIMI T 4.0 - 6.0ADA THERAPEUTIC TARGET < 7.0ACTION SUGGESTED> 7.0 No Panel Informationon 03-16 Hepatitis C Interpretation Comment . [facility] Comment on above: Not infected with HC V unless early or acute infection issuspected (which may be delayed in an immunocompromisedindividual), or other evidence exists to indicate HCVinfection.Performed at: [facility] [id number] Director: Frankie Aguero PhD, Phone: [phone] Serum or plasma hepatitis C virus antibody signal/cutoff ratio by immunoassay (relation 03-16-2024 HCV Ab Signal/Cutoff IA [Rel units/Vol] Non-Reactive Non Reactive [facility] Basophils Auto (Bld) [#/Vol] on 03-11-2024 Basophils (Bld) [#/Vol] 0.0 10 3/uL 0.0-0.1 [facility] Basophils/100 WBC Auto (Bld) on 03-11-2024 Basophils/100 WBC (Bld) 0.1 % 0.2-2.0 [facility] Eosinophils/100 WBC Auto (Bl d)on 03-11-2024 Eosinophils/100 WBC (Bld) 0.6 % 0.9-7.0 [facility] Erythrocyte distribution wid th Auto (RBC) [Ratio]on 03-11-2024 Erythrocyte distribution width (RBC) [Ratio] 14.1 % 11.0-15.0 [facility] Hematocrit Auto (Bld) [Volum e fraction]on 03-11-2024 Hematocrit (Bld) [Volume fraction] 30.2 % 36.0-48.0 [facility] Hemoglobin [Mass/volume] in Bloodon 03-11-2024 Hemoglobin (Bld) [Mass/Vol] 9.9 g/dL 12.0-16.0 [facility] Laboratory - Chemistry and C hemistry - challengeon 03-11-2024 Chloride [Moles/Vol] 103 mmol/L 98-107 [facility] CO2 [Moles/Vol] 25.7 mmol/L 21.0-32.0 [facility] Potassium [Moles/Vol] 4.0 mmol/L 3.5-5.1 [facility] Sodium [Moles/Vol] 135 mmol/L 136-145 [facility] Bilirubin Ql (U) Negative NEGATIVE [facility] Glucose (U) [Mass/Vol] Negative NEGATIVE [facility] Ketones Ql (U) TRACE mg/dL NEGATIVE [facility] pH (U) 7.5 [pH] 5.0-9.0 [facility] Specific gravity (U) [Rel density] 1.020 1.005-1.025 [facility] Urobilinogen Qn (U) 0.2 {Vasquez'U}/dL 0.2-1.0 [facility] Laboratory - Hematology and Cell countson 03-11-2024 Immature granulocytes/100 WBC (Bld) 0.7 % 0.0-0.5 [facility] - Specimen inform ationon 03-11-2024 Appearance (U) CLEAR CLEAR [facility] Color (U) YELLOW YELLOW [facility] - Urinalysison Leukocyte esterase Test strip Ql (U) Negative NEGATIVE [facility] Nitrite Ql (U) Negative NEGATIVE [facility] Protein Ql (U) TRACE mg/dL NEG/TRACE [facility] Leukocytes [#/volume] correc zee for nucleated erythrocytes in Blood by Automated counon 03-11-2024 WBC corrected for nucl RBC Auto (Bld) [#/Vol] 9.9 10 3/uL 4.0-11.0 [facility] Lymphocytes Auto (Bld) [#/Vo l]on 03-11-2024 Lymphocytes (Bld) [#/Vol] 2.9 10 3/uL 1.2-3.8 [facility] Lymphocytes/100 WBC Auto (Bl d)on 03-11-2024 Lymphocytes/100 WBC (Bld) 29.1 % 20.5-60.0 [facility] MCH Auto (RBC) [Entitic mass ]on 03-11-2024 MCH (RBC) [Entitic mass] 30.6 pg 26.7-34.0 [facility] MCHC Auto (RBC) [Mass/Vol]on 03-11-2024 MCHC (RBC) [Mass/Vol] 32.8 g/dL 29.9-35.2 [facility] MCV Auto (RBC) [Entitic vol] on 03-11-2024 MCV (RBC) [Entitic vol] 93.2 fL 81.0-99.0 [facility] Monocytes Auto (Bld) [#/Vol] on 03-11-2024 Monocytes (Bld) [#/Vol] 0.6 10 3/uL 0.3-0.8 [facility] Monocytes/100 WBC Auto (Bld) on 03-11-2024 Monocytes/100 WBC (Bld) 6.3 % 1.7-12.0 [facility] Neutrophils Auto (Bld) [#/Vo l]on 03-11-2024 Neutrophils (Bld) [#/Vol] 6.2 10 3/uL 1.4-6.5 [facility] Neutrophils/100 WBC Auto (Bl d)on 03-11-2024 Neutrophils/100 WBC (Bld) 63.2 % 43.0-75.0 [facility] No Panel Informationon 03-11 Eosinophils # (Auto) 0.1 10 3/uL 0.0-0.7 [facility] Immature Granulocyte # (Auto) 0.07 10 3/uL 0.00-0.03 [facility] Urine Microscopic Review NO [facility] Urine Occult Blood Negative NEGATIVE [facility] Platelet mean volume Auto (B ld) [Entitic vol]on 03-11-2024 Platelet mean volume (Bld) [Entitic vol] 9.9 fL 9.5-13.5 [facility] Platelets Auto (Bld) [#/Vol] on 03-11-2024 Platelets (Bld) [#/Vol] 345 10 3/uL 150-450 [facility] RBC Auto (Bld) [#/Vol]on RBC (Bld) [#/Vol] 3.24 10 6/uL 4.20-5.40 [facility] Serum or plasma anion gap de terminationon 03-11-2024 Anion gap [Moles/Vol] 10.3 mmol/L [facility] CNPNon 05-27-2023 CNPN Telephone (4CQ) EDITH WELLS ([id number]) 1995 F Date Time Provider Department 05/27/23 TESSA SANCHEZ 4CQ During your visit today, we recorded the following information about you: Glenis Gavin 05/27/2023 12:11 PM Signed Edith Wells is calling Tessa Sanchez MD today. Patient's therapist at [facility] is asking if she can continue PT but change it to 2 days on land and 0 days in water per week. Needs new order sent to [facility] in [place]. She did not have the fax number. [...] off per provider's discretion. 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 Call her to inform when she can pick it up. Call cell number below. May leave a message. No chief complaint on file. Patient has been identified by name and birthdate. Duration of symptoms: Person calling: self Call patient at: on cell and , it is OK to leave message [phone] (home) [phone] (cell) Was an appointment scheduled: No Closing statement: Results or non-symptom based questions: Thank you for calling [facility], your call will be returned within [...] Status:Closed by LIZZETTE ADAMS RN on 05/27/23 [facility] CNCOon 04-17-2023 CNCO Letter Text [facility] CNOVon 04-17-2023 CNOV Office Visit (ORAVON ) EDITH WELLS ([id number]) 1995 F Date Time Provider Department 04/17/23 [...] records. This note was partially generated using [employer] voice recognition system, and there may be [...] Order(s):CONSULT TO PHYSICAL THERAPY [9032] Order #: [id number]: 1 FUTURE Prescriptions as of 04/18/2023 - [...] Encounter Status:Closed by TESSA SANCHEZ on 04/18/23 [facility] CNOVon 03-13-2023 CNOV Office Visit (ORAVON ) EDITH WELLS ([id number]) 1995 F Date Time Provider Department 03/13/23 [...] records. This note was partially generated using [employer] voice recognition system, and there may be [...] Status:Closed by TESSA SANCHEZ on 03/13/23 [facility] 02-28-2023 [facility] Telephone (ORAVON) PRISCILLAEDITH ([id number]) 1995 F Date Time Provider Department 02/28/23 TESSA SANCHEZ During your visit today, we recorded the following information about you: Margysolitario Contreras Pss 02/28/2023 4:09 PM Signed Patient wants to get physical therapy at [facility] in [place]. Has been approved by [facility] and she can now schedule. Asking for recent therapy order from Dr Sanchez be faxed to [facility] in [place] at [phone]. Lizzette Adams RN 03/01/2023 10:22 AM Signed Faxed today at 10:20am. Lizzette Adams RN Allergies As of Date: 02/28/2023 (No Known Allergies) Date Reviewed: 01/02/2023 Reviewed by: Theresa Frederick MA - Fully Assessed Reason for Visit: Electronic Communication [470] Cmt: PT order faxed today Prescriptions as [...] by LIZZETTE ADAMS RN on 03/01/23 [facility] Shayy 01-10-2023 CNPN Telephone (ORAVON) EDITH WELLS ([id number]) 1995 Date Time Provider Department 01/10/23 TESSA SANCHEZ [...] back to the office to update CALL [phone] Autumn Clayton 01/10/2023 12:07 PM Signed Edith [...] calling: self Call patient at: at home [phone] (home) [phone] (cell) Was an appointment scheduled: No Closing statement: Results or non-symptom based questions: Thank you for calling [facility], your call will be returned within the next business day. Lizzette Adams RN 01/11/2023 12:04 PM Signed Patient's note faxed today as requested Lizzette Adams RN Nolberto Noguera 02/08/2023 4:15 PM Signed Patient calling in about papers she received in the mail. She does not know what they are or what she needs to do with them. Please call her at [phone]. Lizzette Adams RN 02/11/2023 10:34 AM Signed [...] Reason for Visit: Return To Work Letter [4414] Prescriptions as of 02/11/2023 - etodolac (LODINE-XL) [...] Status:Closed by LIZZETTE ADAMS RN on 01/11/23 Normal [facility] CNOVon 01-02-2023 CNOV Office Visit (ORAVON ) EDITH WELLS ([id number]) 1995 F Date Time Provider Department 01/02/23 [...] records. This note was partially generated using [employer] voice recognition system, and there may be [...] Past Histories independently gathered by the clinical medical support specialist and the remaining scribed note accurately describes my personal service to the patient. Tessa Sanchez M.D. 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 - cyclobenzaprine (FLEXERIL) 5 (more content not included)... Normal [facility] XR ANKLE 3V AP/LAT/OBL RTon [...] malalignment is identified. Joint spaces are maintained. Canteen Operator: PSCB Transcribe Date/Time: Jan 02 2023 4:17P Dictated by : RC CIFUENTES MD This examination was interpreted and the report reviewed and electronically signed by: RC CIFUENTES MD on Jan 02 2023 4:18PM EST [id number] Normal [facility] XR ANKLE GENERAL 3V AP/LAT/O BL RIGHTon 01-02-2023 [facility] CNCOon 12-21-2022 CNCO Letter Text Normal [facility] CNPNon 12-21-2022 CNPN Telephone (ORAVON) EDITH WELLS ([id number]) 1995 F Date Time Provider Department 12/21/22 [...] Encounter Status:Closed by VINAY CORONA on 12/21/22 [facility] 12-19-2022 [facility] Telephone (ORAVON) EDITH WELLS ([id number]) 1995 F Date Time Provider Department 12/19/22 [...] that prevented her form having PT. CALL [phone] Vinay Corona RN 12/21/2022 5:35 PM Signed This RN called and spoke with patient. Letter sent via NMR[employer] she report she received it. 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 She was grateful for the call. Vinay Corona PIT OPERATOR Allergies As of Date: 12/19/2022 (No Known [...] Encounter Status:Closed by VINAY CORONA on 12/21/22 [facility] CNOVon 11-14-2022 CNOV Office Visit (ORAVON ) EDITH WELLS ([id number]) 1995 F Date Time Provider Department 11/14/22 [...] Status:Closed by TESSA SANCHEZ on 11/14/22 Normal [facility] EBV EARLY ANTIGEN (IgG)on EBV Early Antigen Ab, IgG <9.0 Normal 0.0-8.9 [facility] Comment on above: Result Comment: Nega tive < 9.0 Equivocal 9.0 - 10.9 Positive >10.9 Performed By: #### E BVEARL #### [facility] [address] [place] [address] Dr. Judah Phipps LU-POSADAS VIRUS (EBV) AB PROFILEon 11-14-2022 EBV Ab VCA, IgG 370.0 U/mL Critically high 0.0-17.9 [facility] Comment on above: Result Comment: Nega tive <18.0 Equivocal 18.0 - 21.9 Positive >21.9 Performed By: #### E BVPROF #### [facility] [address] [place] [address] Dr. Judah Phipps EBV Ab VCA, IgM <36.0 Normal 0.0-35.9 [facility] Comment on above: Result Comment: Nega tive <36.0 Equivocal 36.0 - 43.9 Positive >43.9 Performed By: #### E BVPROF #### [facility] [address] [place] [address] Dr. Judah Phipps EBV Nuclear Antigen Ab, IgG 224.0 U/mL Critically high 0.0-17.9 [facility] Comment on above: Result Comment: Nega tive <18.0 Equivocal 18.0 - 21.9 Positive >21.9 Performed By: #### E BVPROF #### [facility] [address] [place] [address] Dr. Judah Phipps Interpretation: Comment Normal The [...] #### E BVPROF #### [facility] [address] [place] [address] Dr. Judah Phipps XR ANKLE 3V AP/LAT/OBL [...] dislocation. IMPRESSION: Expected postoperative findings as described. Canteen Operator: ANYA Transcribe Date/Time: Nov 14 2022 6:35P Dictated by : TINA VEGA MD This examination was interpreted and the report reviewed and electronically signed by: TINA VEGA MD on Nov 15 2022 6:27AM EST [id number] Normal [facility] XR ANKLE GENERAL 3V AP/LAT/O BL RIGHTon 11-14-2022 [facility] AMYLASEon 11-13-2022 Amylase [Catalytic activity/Vol] 42 U/L Normal 25-115 [facility] Comment on above: Performed By: #### L IPA, CMP, SYEDA, PREGQNT #### [facility] [address] [place] [address] Dr. Judah Phipps CBC AUTO DIFFon 11-13-2022 BASO # 0.0 103/ul Normal 0.0-0.1 [facility] Comment on above: Performed By: #### L IPA, CMP, SYEDA, PREGQNT #### [facility] [address] [address] [address] Judah Phipps Basophils/100 WBC (Bld) 0.3 % Normal 0.2-2.0 [facility] Comment on above: Performed By: #### L IPA, CMP, SYEDA, PREGQNT #### [facility] [address] [place] [address] Dr. Judah Phipps EO # 0.5 103/ul Normal 0.0-0.7 [facility] Comment on above: Performed By: #### L IPA, CMP, SYEDA, PREGQNT #### [facility] [address] [place] [address] Dr. Judah Phipps Eosinophils/100 WBC (Bld) 4.0 % Normal 0.9-7.0 [facility] Comment on above: Performed By: #### L IPA, CMP, SYEDA, PREGQNT #### [facility] [address] [place] [address] Dr. Judah Phipps Erythrocyte distribution width (RBC) [Ratio] 13.2 % Normal 11.0-15.0 [facility] Comment on above: Performed By: #### L IPA, CMP, SYEDA, PREGQNT #### [facility] [address] [place] [address] Dr. Judah Phipps Hematocrit (Bld) [Volume fraction] 37.2 % Normal 36.0-48.0 [facility] Comment on above: Performed By: #### L IPA, CMP, SYEDA, PREGQNT #### [facility] [address] [place] [address] Dr. Judah Phipps Hemoglobin (Bld) [Mass/Vol] 12.5 g/dL Normal 12.0-16.0 [facility] Comment on above: Performed By: #### L IPA, CMP, SYEDA, PREGQNT #### [facility] [address] [place] [address] Dr. Judah Phipps IG # 0.04 10e3/ul Critically high 0.00-0.03 [facility] Comment on above: Performed By: #### L IPA, CMP, SYEDA, PREGQNT #### [facility] [address] [place] [address] Dr. Judah Phipps IG % 0.3 % Normal 0.0-0.5 [facility] Comment on above: Performed By: #### L IPA, CMP, SYEDA, PREGQNT #### [facility] [address] [place] [address] Dr. Judah Phipps LYMPH # 4.8 103/ul Critically high 1.2-3.8 [facility] Comment on above: Performed By: #### L IPA, CMP, SYEDA, PREGQNT #### [facility] [address] [place] [address] Dr. Judah Phipps Lymphocytes/100 WBC (Bld) 39.9 % Normal 20.5-60.0 [facility] Comment on above: Performed By: #### L IPA, CMP, SYEDA, PREGQNT #### [facility] [address] [place] [address] Dr. Judah Phipps MANUAL DIFF REQ NO Normal [facility] Comment on above: Performed By: #### L IPA, CMP, SYEDA, PREGQNT #### [facility] [address] [place] [address] Dr. Judah Phipps MCH (RBC) [Entitic mass] 30.5 pg Normal 26.7-34.0 [facility] Comment on above: Performed By: #### L IPA, CMP, SYEDA, PREGQNT #### [facility] [address] [place] [address] Dr. Judah Phipps MCHC (RBC) [Mass/Vol] 33.6 g/dL Normal 29.9-35.2 [facility] Comment on above: Performed By: #### L IPA, CMP, SYEDA, PREGQNT #### [facility] [address] [place] [address] Dr. Judah Phipps MCV (RBC) [Entitic vol] 90.7 fL Normal 81.0-99.0 [facility] Comment on above: Performed By: #### L IPA, CMP, SYEDA, PREGQNT #### [facility] [address] [place] [address] Dr. Judah Phipps MONO # 0.7 103/ul Normal 0.3-0.8 [facility] Comment on above: Performed By: #### L IPA, CMP, SYEDA, PREGQNT #### [facility] [address] [place] [address] Dr. Judah Phipps Monocytes/100 WBC (Bld) 6.1 % Normal 1.7-12.0 [facility] Comment on above: Performed By: #### L IPA, CMP, SYEDA, PREGQNT #### [facility] [address] [address] [address] Judah Phipps NEUT # 5.9 103/ul Normal 1.4-6.5 [facility] Comment on above: Performed By: #### L IPA, CMP, SYEDA, PREGQNT #### [facility] [address] [address] [address] Judah Phipps Neutrophils/100 WBC (Bld) 49.4 % Normal 43.0-75.0 [facility] Comment on above: Performed By: #### L IPA, CMP, SYEDA, PREGQNT #### [facility] [address] [place] [address] Dr. Judah Phipps Platelet mean volume (Bld) [Entitic vol] 9.2 fL Critically low 9.5-13.5 [facility] Comment on above: Performed By: #### L IPA, CMP, SYEDA, PREGQNT #### [facility] [address] [address] [address] Judah Phipps PLT 408 103/ul Normal 150-450 [facility] Comment on above: Performed By: #### L IPA, CMP, SYEDA, PREGQNT #### [facility] [address] [address] [address] Judah Phipps RBC 4.10 106/ul Critically low 4.20-5.40 [facility] Comment on above: Performed By: #### L IPA, CMP, SYEDA, PREGQNT #### [facility] [address] [address] [address] Judah Phipps WBC 12.0 103/ul Critically high 4.0-11.0 [facility] Comment on above: Performed By: #### L IPA, CMP, SYEDA, PREGQNT #### [facility] [address] [address] [address] Judah Phipps LIPASEon 11-13-2022 Lipase [Catalytic activity/Vol] 161.0 U/L Normal 73.0-393.0 [facility] Comment on above: Performed By: #### L IPA, CMP, SYEDA, PREGQNT #### [facility] [address] [place] [address] Dr. Judah Phipps PREG QUANT HCGon 11-13-2022 HCG QUANT <1 Normal [facility] Comment on above: Performed By: #### L IPA, CMP, SYEDA, PREGQNT #### [facility] [address] [place] [address] Dr. Judah Phipps HCG RANGE SEE BELOW Normal [facility] Comment on above: Result Comment: 5-50 0.2-1 WEEK 50-500 1-2 WEEKS 100-5,000 2-3 WEEKS 500-10,000 3-4 WEEKS 1,000-50,000 4-5 WEEKS 10,000-100,000 5-6 WEEKS 15,000-200,000 6-8 WEEKS 10,000-100,000 2-3 MONTHS Performed By: #### L IPA, CMP, SYEDA, PREGQNT #### [facility] [address] [place] [address] Dr. Judah Phipps PROF 14(COMP METB)on 023 Albumin [Mass/Vol] 3.6 g/dL Normal 3.4-5.0 [facility] Comment on above: Performed By: #### L IPA, CMP, SYEDA, PREGQNT #### [facility] [address] [place] [address] Dr. Judah Phipps Albumin/Globulin [Mass ratio] 1.1 {ratio} Normal [facility] Comment on above: Performed By: #### L IPA, CMP, SYEDA, PREGQNT #### [facility] [address] [place] [address] Dr. Judah Phipps ALP [Catalytic activity/Vol] 64 U/L Normal 46-116 [facility] Comment on above: Performed By: #### L IPA, CMP, SYEDA, PREGQNT #### [facility] [address] [place] [address] Dr. Judah Phipps ALT [Catalytic activity/Vol] 9 U/L Critically low 14-59 [facility] Comment on above: Performed By: #### L IPA, CMP, SYEDA, PREGQNT #### [facility] [address] [address] [address] Judah Phipps Anion gap [Moles/Vol] 11.3 mmol/L Normal Th e [facility] Comment on above: Performed By: #### L IPA, CMP, SYEDA, PREGQNT #### [facility] [address] [address] [address] Judah Phipps AST [Catalytic activity/Vol] 10 U/L Critically low 15-37 [facility] Comment on above: Performed By: #### L IPA, CMP, SYEDA, PREGQNT #### [facility] [address] [address] [address] Judah Phipps Bilirubin [Mass/Vol] 0.2 mg/dL Normal 0.2-1.0 [facility] Comment on above: Performed By: #### L IPA, CMP, SYEDA, PREGQNT #### [facility] [address] [address] [address] Judah Phipps Calcium [Mass/Vol] 8.9 mg/dL Normal 8.5-10.1 [facility] Comment on above: Performed By: #### L IPA, CMP, SYEDA, PREGQNT #### [facility] [address] [address] [address] Judah Phipps Chloride [Moles/Vol] 102 mmol/L Normal 98-107 [facility] Comment on above: Performed By: #### L IPA, CMP, SYEDA, PREGQNT #### [facility] [address] [place] [address] Dr. Judah Phipps CO2 [Moles/Vol] 28.5 mmol/L Normal 21.0-32.0 [facility] Comment on above: Performed By: #### L IPA, CMP, SYEDA, PREGQNT #### [facility] [address] [place] [address] Dr. Judah Phipps Creatinine [Mass/Vol] 0.65 mg/dL Normal 0.55-1.02 [facility] Comment on above: Performed By: #### L IPA, CMP, SYEDA, PREGQNT #### [facility] [address] [address] [address] Judah Phipps EGFR-AF CAMEROONIAN >60 Normal >=60 [facility] Comment on above: Performed By: #### L IPA, CMP, SYEDA, PREGQNT #### [facility] [address] [address] [address] Judah Phipps EGFR-NON AF CAMEROONIAN >60 Normal >=60 [facility] Comment on above: Performed By: #### L IPA, CMP, SYEDA, PREGQNT #### [facility] [address] [address] [address] Judah Phipps Globulin (S) [Mass/Vol] 3.4 g/dL Normal [facility] Comment on above: Performed By: #### L IPA, CMP, SYEDA, PREGQNT #### [facility] [address] [address] [address] Judah Phipps Glucose [Mass/Vol] 100 mg/dL Normal 74-106 [facility] Comment on above: Performed By: #### L IPA, CMP, SYEDA, PREGQNT #### [facility] [address] [address] [address] Judah Phipps Potassium [Moles/Vol] 3.8 mmol/L Normal 3.5-5.1 [facility] Comment on above: Performed By: #### L IPA, CMP, SYEDA, PREGQNT #### [facility] [address] [address] [address] Judah Phipps Protein [Mass/Vol] 7.0 g/dL Normal 6.4-8.2 [facility] Comment on above: Performed By: #### L IPA, CMP, SYEDA, PREGQNT #### [facility] [address] [address] [address] Judah Phipps Sodium [Moles/Vol] 138 mmol/L Normal 136-145 [facility] Comment on above: Performed By: #### L IPA, CMP, SYEDA, PREGQNT #### [facility] [address] [address] [address] Judah Phipps Urea nitrogen [Mass/Vol] 15.0 mg/dL Normal 7.0-18.0 [facility] Comment on above: Performed By: #### L IPA, CMP, SYEDA, PREGQNT #### [facility] [address] [place] [address] Dr. Judah Phipps Urea nitrogen/Creatinine [Mass ratio] 23.1 mg/mg Normal [facility] Comment on above: Performed By: #### L IPA, CMP, SYEDA, PREGQNT #### [facility] [address] [place] [address] Dr. Judah Phipps RESPIRATORY PANEL PLUSon Adenovirus Not detected Normal NOT DETECTED [facility] Comment on above: Performed By: #### R SPLUS #### [facility] [address] [place] [address] Dr. Judah Dick. Parapertusis Not detected Normal NOT DETECTED [facility] Comment on above: Performed By: #### R SPLUS #### [facility] [address] [place] [address] Dr. Judah Dick. Pertussis Not detected Normal NOT DETECTED [facility] Comment on above: Performed By: #### R SPLUS #### [facility] [address] [place] [address] Dr. Judah Phipps Chlamydia Pneumoniae Not detected Normal NOT DETECTED [facility] Comment on above: Performed By: #### R SPLUS #### [facility] [address] [place] [address] Dr. Judah Phipps Coronavirus 229E Not detected Normal NOT DETECTED [facility] Comment on above: Performed By: #### R SPLUS #### [facility] [address] [place] [address] Dr. Judah Phipps Coronavirus HKU1 Not detected Normal NOT DETECTED [facility] Comment on above: Performed By: #### R SPLUS #### [facility] [address] [place] [address] Dr. Judah Phipps Coronavirus NL63 Not detected Normal NOT DETECTED [facility] Comment on above: Performed By: #### R SPLUS #### [facility] [address] [place] [address] Dr. Judah Phipps Coronavirus OC43 Not detected Normal NOT DETECTED [facility] Comment on above: Performed By: #### R SPLUS #### [facility] [address] [place] [address] Dr. Judah Phipps Influenza A H1 2009 Not detected Normal NOT DETECTED [facility] Comment on above: Performed By: #### R SPLUS #### [facility] [address] [place] [address] Dr. Judah Phipps Influenza A H3 Not detected Normal NOT DETECTED [facility] Comment on above: Performed By: #### R SPLUS #### [facility] [address] [place] [address] Dr. Judah Phipps Influenza B Not detected Normal NOT DETECTED [facility] Comment on above: Performed By: #### R SPLUS #### [facility] [address] [place] [address] Dr. Judah Phipps Metapneumovirus Not detected Normal NOT DETECTED [facility] Comment on above: Performed By: #### R SPLUS #### [facility] [address] [place] [address] Dr. Judah Phipps Mycoplas. Pneumoniae Not detected Normal NOT DETECTED [facility] Comment on above: Performed By: #### R SPLUS #### [facility] [address] [place] [address] Dr. Judah Phipps Parainfluenza 1 Not detected Normal NOT DETECTED [facility] Comment on above: Performed By: #### R SPLUS #### [facility] [address] [place] [address] Dr. Judah Phipps Parainfluenza 2 Not detected Normal NOT DETECTED [facility] Comment on above: Performed By: #### R SPLUS #### [facility] [address] [place] [address] Dr. Judah Phipps Parainfluenza 3 Not detected Normal NOT DETECTED [facility] Comment on above: Performed By: #### R SPLUS #### [facility] [address] [place] [address] Dr. Judah Phipps Parainfluenza 4 Not detected Normal NOT DETECTED [facility] Comment on above: Performed By: #### R SPLUS #### [facility] [address] [place] [address] Dr. Judah Phipps Rhino/Enterovirus Not detected Normal NOT DETECTED [facility] Comment on above: Performed By: #### R SPLUS #### [facility] [address] [place] [address] Dr. Judah Phipps RP2 Header 1 RESPIRATORY PANEL: VIRUSES Normal [facility] Comment on above: Performed By: #### R SPLUS #### [facility] [address] [place] [address] Dr. Judah Phipps RP2 Header 2 RESPIRATORY PANEL: BACTERIA Normal [facility] Comment on above: Performed By: #### R SPLUS #### [facility] [address] [place] [address] Dr. Judah Phipps RSV Not detected Normal NOT DETECTED [facility] Comment on above: Performed By: #### R SPLUS #### [facility] [address] [place] [address] Dr. Judah Phipps SARS-CoV-2 (COVID-19) RNA HAROLDO+probe Ql (Unsp spec) Not detected Normal NOT DETECTED [facility] Comment on above: Performed By: #### R SPLUS #### [facility] [address] [place] [address] Dr. Judah Prince 10-10-2022 CNOV Office Visit (ADRIANA ) EDITH WELLS ([id number]) 1995 F Date Time Provider Department 10/10/22 [...] Status:Closed by TESSA SANCHEZ on 10/10/22 Normal [facility] Shayy 09-26-2022 CNPN Telephone (ORAVON) EDITH WELLS ([id number]) 1995 F Date Time Provider Department 09/26/22 TESSA SANCHEZ ORAVON During your visit today, we recorded the following information about you: Rita Taveras [facility] [place] 09/26/2022 11:18 AM Signed Patient requesting to speak with provider or staff in regards to right leg pain. She is having pain from her toes up to her knee. Her right ankle surgery was 08/28/22 and questions if pain is normal? Patient is to start therapy today at 6 pm. Patient requesting a return call through #[phone] or #[phone]. The second number is her boyfriends line, Elias. Patient gives okay to leave message with Elias if needed. Please advise. Lizzette Adams RN 09/28/2022 2:23 PM Signed I spoke with Kathie on 09/26/22. Lizzette Adams RN Allergies As of Date: 09/26/2022 (No Known Allergies) Date Reviewed: 09/12/2022 Reviewed by: Lizzette Adams RN - Fully Assessed Reason for Visit: Patient Question [9777] Prescriptions as of 09/28/2022 - predniSONE (DELTASONE) [...] Status:Closed by LIZZETTE ADAMS RN on 09/28/22 [facility] CNOVon 09-12-2022 CNOV Office Visit (ORAVON ) EDITH WELLS ([id number]) 1995 F Date Time Provider Department 09/12/22 [...] right talus [M93.271] Order(s):CONSULT TO PHYSICAL THERAPY [9095] Order #: [id number]: 1 FUTURE Prescriptions as of 09/12/2022 - [...] Encounter Status:Closed by TESSA SANCHEZ on 09/12/22 [facility] CNOV Office Visit (ORAVON ) EDITH WELLS ([id number]) 1995 F Date Time Provider Department 09/12/22 3:00 PM CAST TECH AGNES ADRIANA During your visit today, we recorded the following information about you: Alfredconcha Campo Cast 09/12/2022 4:10 PM Signed PT ASSESSMENT - CASTING ROOM Edith presents for cast removal. Applied pneumatic aircast walker(HAD PRIOR TO SURGERY) to Right leg non-weight bearing Patient has been instructed in Care of boot.. Alfred aCmpo Cast Beeper: [id number] Allergies As of Date: 09/12/2022 (No Known [...] Encounter Status:Closed by ALFRED KEARNS on 09/12/22 [facility] Shayy 09-03-2022 CNPN Telephone (ORAVON) EDITH WELLS ([id number]) 1995 F Date Time Provider Department 09/03/22 [...] Status:Closed by AMPARO GUILLORY RN on 09/14/22 Normal [facility] Shayy 09-02-2022 CNPN Telephone (SICU) EDITH WELLS ([id number]) 1995 F Date Time Provider Department 09/02/22 EYAD SHELBY SIC During your visit today, we recorded the [...] Fully Assessed Reason for Visit: Patient Question [6168] Prescriptions as of 09/02/2022 - acetaminophen (TYLENOL) [...] Encounter Status:Closed by EYAD SHELBY on 09/02/22 [facility] 08-29-2022 [facility] Nurse Visit (ORAVGOLDIE) PRISCILLAEDITH ([id number]) 1995 F Date Time Provider Department 08/29/22 3:45 PM NURSE [facility] KATHRYN ADRIANA During your visit today, we recorded [...] Status:Closed by LIZZETTE ADAMS RN on 09/03/22 [facility] Suresh 08-29-2022 CNOV Office Visit (ADRIANA ) EDITH WELLS ([id number]) 1995 F Date Time Provider Department 08/29/22 3:00 PM CAST TECH AGNES WRIGHT During your visit today, we recorded the following information about you: Alfred Campo Cast 08/29/2022 3:44 PM Signed PT ASSESSMENT - CASTING ROOM Edith presents for Application of cast. Applied short cast: to Right leg non-weight bearing Patient has been instructed in Care of cast.. Alfred Campo Cast Beeper: [id number] Allergies As of Date: 08/29/2022 (No Known [...] Status:Closed by ALFRED KEARNS on 08/29/22 Normal [facility] ANES POSTPROC EVALon 022 ANES POSTPROC EVAL HNO ID: [id number] Author: Mike Alcantar MD Service: Anesthesiology Author Type: Anesthesiologist Type: Anesthesia Postprocedure Evaluation Filed: 08/28/2022 1:05 PM Note Text: POST ANESTHESIA EVALUATION NOTE : 1995 Procedure Summary Date: 08/28/22 Room / Location: [address] Anesthesia Start: 1029 Anesthesia Stop: 1149 [...] August 28, 2022 TIME: 1:04 PM CSN: [id number] [facility] ANES PRE-OPon 08-28-2022 ANES PRE-OP HNO ID: [id number] Author: Mike Alcantar MD Service: Anesthesiology Author Type: Anesthesiologist Type: Anesthesia Preprocedure Evaluation Filed: 08/28/2022 9:33 AM Note Text: ANESTHESIOLOGY DAY OF SURGERY NOTE : 1995 Procedure Information Date/Time: 08/28/22 1000 Procedure: 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 Surgeons: Tessa Sanchez MD Estimated body mass [...] and consent discussed: yes. Patient / Responsible Republican agrees to proceed: yes Patient / Surrogate agrees to blood products: blood products not planned Significant changes in the patient condition since the History and Physical, not otherwise documented in primary service progress note: no. Potential Anesthesia issues that may suggest increased risk of complications or contraindication to planned procedure: none. Vitals Value Taken Time BP 144/77 08/28/22 0930 Pulse 59 08/28/22930 Resp 16 08/28/22929 Temp 36.4 ?C (97.5 ?F) 08/28/22900 SpO2 97 % 11/01/22 0931 Vitals shown include unvalidated device data. [...] August 28, 2022 TIME: 9:32 AM CSN: [id number] [facility] OPERATIVE NOon 08-28-2022 OPERATIVE NO HNO ID: [id number] Author: Tessa Sanchez MD Service: Orthopaedic Surgery Author Type: Physician Type: Operative Report Filed: 08/28/2022 1:09 PM Note Text: OPERATIVE REPORT LOG ID: [id number] Surgery Date: 08/28/2022 Incision/Procedure Start Time: 11:01 AM Incision Close/Procedure End Time: 11:32 AM Procedure Performed: Procedure(s) (LRB): ARTHROSCOPY ANKLE EXCISION OSTEOCHONDRAL DEFECT MEDIAL TALUS Microfracture of talus Synovectomy Surgeon monitored fluoroscopy Surgeon(s)/Procedurali st(s) and Horse And Wagon Driver(s): Surgeon(s) and Role: * Tessa Sanchez MD - Primary Physician Horse And Wagon Driver: Mercedes Gale PA-C, was essential in patient [...] August 28, 2022 TIME: 1:04 PM PHONE: [phone] Normal [facility] CBC panel Auto (Bld)on 08-24 Erythrocyte distribution width (RBC) [Ratio] 13.3 % Normal 11.5-15.0 [facility] Comment on above: Order Comment: Speci men Type: BLOOD SPECIMENOrdering Facility: [facility] Address: [address] [place] [address] [place] [address] [place] [address] Performed By: #### 5 8410-2 ####[facility] LABCLIA [id number] [place] [address] Hematocrit (Bld) [Volume fraction] 37.6 % Normal 36.0-46.0 [facility] Comment on above: Order Comment: Speci men Type: BLOOD SPECIMENOrdering Facility: [facility] Address: [address] [place] [address] Performed By: #### 5 8410-2 ####[facility] LABCLIA [id number] [place] [address] Hemoglobin (Bld) [Mass/Vol] 12.4 g/dL Normal 11.5-15.5 [facility] Comment on above: Order Comment: Speci men Type: BLOOD SPECIMENOrdering Facility: [facility] Address: [address] [place] [address] Performed By: #### 5 8410-2 ####[facility] LABCLIA [id number] [place] [address] MCH (RBC) [Entitic mass] 30.4 pg Normal 26.0-34.0 [facility] Comment on above: Order Comment: Speci men Type: BLOOD SPECIMENOrdering Facility: [facility] Address: [address] [place] [address] Performed By: #### 5 8410-2 ####[facility] LABCLIA [id number] [place] [address] MCHC (RBC) [Mass/Vol] 33.0 g/dL Normal 30.5-36.0 [facility] Comment on above: Order Comment: Speci men Type: BLOOD SPECIMENOrdering Facility: [facility] Address: [address] [place] [address] Performed By: #### 5 8410-2 ####[facility] LABCLIA [id number] [place] [address] MCV (RBC) [Entitic vol] 92.2 fL Normal 80.0-100.0 [facility] Comment on above: Order Comment: Speci men Type: BLOOD SPECIMENOrdering Facility: [facility] Address: [address] [place] [address] Performed By: #### 5 8410-2 ####[facility]CLIA [id number] [place] [address] Nucleated RBC (Bld) [#/Vol] 10*3/uL Normal <0.01 [facility] Comment on above: Order Comment: Speci men Type: BLOOD SPECIMENOrdering Facility: [facility] Address: [address] [place] [address] Performed By: #### 5 8410-2 ####[facility]CLIA [id number] [place] [address] Platelet mean volume (Bld) [Entitic vol] 9.3 fL Normal 9.0-12.7 [facility] Comment on above: Order Comment: Speci men Type: BLOOD SPECIMENOrdering Facility: [facility] Address: [address] [place] [address] Performed By: #### 5 8410-2 ####[facility] LABCLIA [id number] [place] [address] Platelets (Bld) [#/Vol] 386 10*3/uL Normal 150-400 [facility] Comment on above: Order Comment: Speci men Type: BLOOD SPECIMENOrdering Facility: [facility] Address: [address] [place] [address] Performed By: #### 5 8410-2 ####[facility] LABIA [id number] [place] [address] RBC (Bld) [#/Vol] 4.08 10*6/uL Normal 3.90-5.20 [facility] Comment on above: Order Comment: Speci men Type: BLOOD SPECIMENOrdering Facility: [facility] Address: [address] [address] Performed By: #### 5 8410-2 ####[facility] LABCLIA [id number] [place] [address] WBC (Bld) [#/Vol] 8.69 10*3/uL Normal 3.70-11.00 [facility] Comment on above: Order Comment: Speci men Type: BLOOD SPECIMENOrdering Facility: [facility] Address: [facility] [address] [address] Performed By: #### 5 8410-2 ####[facility] LABCLIA [id number] [place] [address] Erythrocyte distribution width (RBC) [Ratio] 13.3 % 11.5 - 15.0 % [facility] Hematocrit (Bld) [Volume fraction] 37.6 % 36.0 - 46.0 % [facility] Hemoglobin (Bld) [Mass/Vol] 12.4 g/dL 11.5 - 15.5 g/dL [facility] MCH (RBC) [Entitic mass] 30.4 pg 26.0 - 34.0 pg [facility] MCHC (RBC) [Mass/Vol] 33.0 g/dL 30.5 - 36.0 g/dL [facility] MCV (RBC) [Entitic vol] 92.2 fL 80.0 - 100.0 fL [facility] Nucleated RBC (Bld) [#/Vol] <0.01 k/uL [facility] Platelet mean volume (Bld) [Entitic vol] 9.3 fL 9.0 - 12.7 fL [facility] Platelets (Bld) [#/Vol] 386 10*3/uL 150 - 400 k/uL [facility] RBC (Bld) [#/Vol] 4.08 10*6/uL 3.90 - 5.2 0 m/uL [facility] WBC (Bld) [#/Vol] 8.69 10*3/uL 3.70 - 11. 00 k/uL [facility] Basic metabolic 2000 panelon 08-15-2022 Anion gap [Moles/Vol] 8 mmol/L Low 9-18 [facility] Comment on above: Order Comment: Speci men Type: BLOOD SPECIMENOrdering Facility: [facility] Address: [address] [place] [address] Performed By: #### 2 4321-2 ####[facility] LABCLIA [id number] [place] [address] Calcium [Mass/Vol] 9.4 mg/dL Normal 8.5-10.2 [facility] Comment on above: Order Comment: Speci men Type: BLOOD SPECIMENOrdering Facility: [facility] Address: [address] [place] [address] Performed By: #### 2 4321-2 ####[facility] LABCLIA [id number] [place] [address] Chloride [Moles/Vol] 104 mmol/L Normal 97-105 [facility] Comment on above: Order Comment: Speci men Type: BLOOD SPECIMENOrdering Facility: [facility] Address: [address] [place] [address] Performed By: #### 2 4321-2 ####[facility] LABCLIA [id number] [place] [address] CO2 [Moles/Vol] 25 mmol/L Normal 22-30 [facility] Comment on above: Order Comment: Speci men Type: BLOOD SPECIMENOrdering Facility: [facility] Address: [address] [place] [address] Performed By: #### 2 4321-2 ####[facility] LABCLIA [id number] [place] [address] Creatinine [Mass/Vol] 0.60 mg/dL Normal 0.58-0.96 [facility] Comment on above: Order Comment: Speci men Type: BLOOD SPECIMENOrdering Facility: [facility] Address: [address] [place] [address] Performed By: #### 2 4321-2 ####[facility] LABCLIA [id number] [place] [address] ESTIMATED GLOMERULAR FILTRATION RATE 126 mL/min/1.73m??? Normal >=60 [facility] Comment on above: Order Comment: Getachew hamilton Type: BLOOD SPECIMENOrdering Facility: [facility] Address: [address] [place] [address] Result Comment: Brandy mated Glomerular Filtration Rate [...] actual GFR. Performed By: #### 2 4321-2 ####[facility] LABCLIA [id number] [place] [address] Glucose [Mass/Vol] 109 mg/dL High 74-99 [facility] Comment on above: Order Comment: Getachew hamilton Type: BLOOD SPECIMENOrdering Facility: [facility] Address: [address] [place] [address] Result Comment: The [place] [employer] (ADA) provides guidance for cutoff [...] Standards of Medical Care in Diabetes 2016, [place] [employer]. Diabetes Care. 2016.39(Suppl 1). Performed By: #### 2 4321-2 ####[facility] LABCLIA [id number] [place] [address] Potassium [Moles/Vol] 3.8 mmol/L Normal 3.7-5.1 [facility] Comment on above: Order Comment: Speci men Type: BLOOD SPECIMENOrdering Facility: [facility] Address: [address] [place] [address] Performed By: #### 2 4321-2 ####[facility] LABCLIA [id number] [place] [address] Sodium [Moles/Vol] 137 mmol/L Normal 136-144 [facility] Comment on above: Order Comment: Speci men Type: BLOOD SPECIMENOrdering Facility: [facility] Address: [address] [place] [address] Performed By: #### 2 4321-2 ####[facility] LABCLIA [id number] [place] [address] Urea nitrogen [Mass/Vol] 20 mg/dL Normal 7-21 [facility] Comment on above: Order Comment: Speci men Type: BLOOD SPECIMENOrdering Facility: [facility] Address: [address] [place] [address] Performed By: #### 2 4321-2 ####[facility] [facility] [id number] [place] [address] CBC panel Auto (Bld)on 08-15 Erythrocyte distribution width (RBC) [Ratio] 13.5 % Normal 11.5-15.0 [facility] Comment on above: Order Comment: Speci men Type: BLOOD SPECIMENOrdering Facility: [facility] Address: [address] [place] [address] Performed By: #### 5 8410-2 ####[facility] [id number] [place] [address] Hematocrit (Bld) [Volume fraction] 39.9 % Normal 36.0-46.0 [facility] Comment on above: Order Comment: Speci men Type: BLOOD SPECIMENOrdering Facility: [facility] Address: [address] [place] [address] Performed By: #### 5 8410-2 ####[facility] LABCLIA [id number] [place] [address] Hemoglobin (Bld) [Mass/Vol] 13.4 g/dL Normal 11.5-15.5 [facility] Comment on above: Order Comment: Speci men Type: BLOOD SPECIMENOrdering Facility: [facility] Address: [address] [place] [address] Performed By: #### 5 8410-2 ####[facility] LABCLIA [id number] [place] [address] MCH (RBC) [Entitic mass] 30.7 pg Normal 26.0-34.0 [facility] Comment on above: Order Comment: Speci men Type: BLOOD SPECIMENOrdering Facility: [facility] Address: [address] [place] [address] Performed By: #### 5 8410-2 ####[facility] LABCLIA [id number] [place] [address] MCHC (RBC) [Mass/Vol] 33.6 g/dL Normal 30.5-36.0 [facility] Comment on above: Order Comment: Speci men Type: BLOOD SPECIMENOrdering Facility: [facility] Address: [address] [place] [address] Performed By: #### 5 8410-2 ####[facility] LABCLIA [id number] [place] [address] MCV (RBC) [Entitic vol] 91.5 fL Normal 80.0-100.0 [facility] Comment on above: Order Comment: Speci men Type: BLOOD SPECIMENOrdering Facility: [facility] Address: [address] [place] [address] Performed By: #### 5 8410-2 ####[facility] LABCLIA [id number] [place] [address] Nucleated RBC (Bld) [#/Vol] 10*3/uL Normal <0.01 [facility] Comment on above: Order Comment: Speci men Type: BLOOD SPECIMENOrdering Facility: [facility] Address: [address] [place], [place] [address] Performed By: #### 5 8410-2 ####[facility] LABCLIA [id number] [place] [address] Platelet mean volume (Bld) [Entitic vol] 9.2 fL Normal 9.0-12.7 [facility] Comment on above: Order Comment: Speci men Type: BLOOD SPECIMENOrdering Facility: [facility] Address: [address] [place], [place] [address] Performed By: #### 5 8410-2 ####[facility] LABCLIA [id number] [place] [address] Platelets (Bld) [#/Vol] 409 10*3/uL High 150-400 [facility] Comment on above: Order Comment: Speci men Type: BLOOD SPECIMENOrdering Facility: [facility] Address: [address] [place] [address] Performed By: #### 5 8410-2 ####[facility] LABCLIA [id number] [place] [address] RBC (Bld) [#/Vol] 4.36 10*6/uL Normal 3.90-5.20 [facility] Comment on above: Order Comment: Speci men Type: BLOOD SPECIMENOrdering Facility: [facility] Address: [address] [place], [place] [address] Performed By: #### 5 8410-2 ####[facility] LABIA [id number] [place] [address] WBC (Bld) [#/Vol] 16.45 10*3/uL High 3.70-11.00 [facility] Comment on above: Order Comment: Speci men Type: BLOOD SPECIMENOrdering Facility: [facility] Address: [address] [place], [place] [address] Performed By: #### 5 8410-2 ####[facility] [id number] [place] [address] Shayy 08-15-2022 CNPN Telephone (BRENT) EDITH WELLS ([id number]) 1995 F Date Time Provider Department 08/15/22 TESSA SANCHEZ During your visit today, we recorded the following information about you: Kasi Mathur PA-C 08/15/2022 9:48 AM Signed Good morning Dr. 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 She had her [...] Visit Diagnosis:Leukocytosis , unspecified type [D72.829] Order(s):CBC [SQCBC] Order #: [id number] FUTURE Prescriptions as of 08/24/2022 - predniSONE [...] Encounter Status:Closed by KASI MATHUR on 08/24/22 [facility] HISTORY PHYSICALon HISTORY PHYSICAL HNO ID: [id number] Author: Kasi Mathur PA-C Service: ? Author Type: Physician Horse And Wagon Driver Type: HANDP Filed: 08/24/2022 1:26 PM Note [...] Disorder) Bmi 40.0-44.9, Adult ([facility]) History of Palpitations Former Smoker History of Syncope Difficult Intravenous Access Anemia PAST MEDICAL HISTORY Diagnosis Date Back pain BMI 40.0-44.9, adult ([facility]) Former smoker PVC's (premature ventricular contractions) PAST [...] fevers. Neuro: No history of TIA's, stroke, SPRAY BLENDER tumor, impaired sensorium, hemiplegia, paraplegia or quadraplegia. [...] episode)- no further syncope, Negative for Recent AR, CAD, Chest Pain, CHF, Valvular Heart Disease, DVT/PE, edema, orthopnea, further syncope, palpitations GI: Positive for GERD - takes TUMS prn, Negative for Nausea, Vomiting, Abdominal pain, Hepatitis, Pancreatitis : No history of dysuria, frequency or incontinence,, stones or chronic kidney disease BAKERY HELPER: Negative for abnormal vaginal bleeding, abnormal vaginal [...] normal respiratory (more content not included)... Normal [facility] CNCOon 2022 CNCO Letter Text Normal [facility] CNOVon 2022 CNOV Office Visit (ORAVON ) EDITH WELLS ([id number]) 1995 F Date Time Provider Department 08/08/22 [...] Scan The patient's pertinent medical history from [facility] has been reviewed. PFOMIS forms have [...] anticipated outc (more content not included)... Normal [facility] XR LSPINE 2_3 VIEWSon 2021 [...] 2022-08-01 20:44 Normal [facility] Covid-19 PCR ([facility])on SARS-CoV-2 (COVID-19) RNA HAROLDO+probe Ql (Unsp spec) Not detected Normal NOT DETECTED [facility] Comment on above: Result Comment: When [...] for this test is supported by the [place] of Health and Human Service's declaration that [...] CMP, SYEDA, PREGQNT #### [facility] [address], [place] [address] Dr. Judah Phipps GROUP A STREP CULTUREon S. pyogenes Ag Ql (Unsp spec) Culture Observations: NEGATIVE FOR GROUP A STREPTOCOCCUS. Normal [facility] Comment on above: Performed By: #### G RASTCX, SSCRN #### [facility] [address], [place] [address] Dr. Judah Phipps STREPT SCREENon 06-28-2022 STREP SCREEN A Negative Normal NEGATIVE [facility] Comment on above: Performed By: #### G RASTCX, SSCRN #### [facility] [address] [place], [place] [address] Dr. Judah Phipps XR Ankle Complete Righton [...] by Kristi Olguin on 05/07/2022 1503 Normal [facility] XR Spine Lumbar 4+ Views*on 05-07-2022 XR [...] by Kristi Olguin on 05/07/2022 1453 Normal [facility] Submarine Advisory Team Watch Officer Vital Signs Date Time Vital Sign Value Performing Clinician Facility 07-09-2024 09:58-0400 Body height 162.56 cm DO Charbel Rodriguez Work Phone: [facility] 07-09-2024 09:58-0400 Body temperature 97.5 [degF] DO Charbel Rodriguez Work Phone: [facility] 07-09-2024 09:58-0400 Diastolic blood pressure 82 mm[Hg] DO Charbel Rodriguez Work Phone: [facility] 07-09-2024 09:58-0400 Heart rate 66 /min DO Charbel Rodriguez Work Phone: [facility] 07-09-2024 09:58-0400 SaO2% (BldA) [Mass fraction] 97 % DO Charbel Rodriguez Work Phone: [facility] 07-09-2024 09:58-0400 Systolic blood pressure 124 mm[Hg] DO Charbel Rodriguez Work Phone: [facility] 05-08-2023 09:30-0400 Body height 163.19 cm Charbel Rodriguez Other [facility] Other 05-08-2023 09:30-0400 Body mass index (BMI) [Ratio] 46.15 kg/m2 Charbel Rodriguez Other [facility] Other 05-08-2023 09:30-0400 Body temperature 98.3 [degF] Charbel Rodriguez Other [facility] Other 05-08-2023 09:30-0400 Body weight 122.93 kg Charbel Rodriguez Other [facility] Other 05-08-2023 09:30-0400 Diastolic blood pressure 84 mm[Hg] Charbel Rodriguez Other [facility] Other 05-08-2023 09:30-0400 Respiratory rate 18 /min Charbel Rodriguez Other [facility] Other 05-08-2023 09:30-0400 SaO2% (BldA) [Mass fraction] 98 % Charbel Rodriguez Other [facility] Other 05-08-2023 09:30-0400 Systolic blood pressure 130 mm[Hg] Charbel Rodriguez Other [facility] Other 04-12-2023 10:50-0400 Body height 163.19 cm Charbel Rodriguez Other [facility] Other 04-12-2023 10:50-0400 Body mass index (BMI) [Ratio] 45.47 kg/m2 Charbel Rodriguez Other [facility] Other 04-12-2023 10:50-0400 Body temperature 98.8 [degF] Charbel Rodriguez Other [facility] Other 04-12-2023 10:50-0400 Body weight 121.11 kg Charbel Alicerosey Other [facility] Other 04-12-2023 10:50-0400 Diastolic blood pressure 84 mm[Hg] Charbel Rodriguez Other [facility] Other 04-12-2023 10:50-0400 Respiratory rate 20 /min Charbel Rodriguez Other [facility] Other 04-12-2023 10:50-0400 SaO2% (BldA) [Mass fraction] 98 % Charbel Rodriguez Other [facility] Other 04-12-2023 10:50-0400 Systolic blood pressure 138 mm[Hg] Charbel Rodriguez Other [facility] Other 12-07-2022 11:20-0500 Body height 163.19 cm Ronda Guevara Other [facility] Other 12-07-2022 11:20-0500 Body mass index (BMI) [Ratio] 42.57 kg/m2 Ronda Guevara Other [facility] Other 12-07-2022 11:20-0500 Body temperature 97.2 [degF] Ronda Guevara Other [facility] Other 12-07-2022 11:20-0500 Body weight 113.4 kg Ronda Guevara Other [facility] Other 12-07-2022 11:20-0500 SaO2% (BldA) [Mass fraction] 98 % Ronda Guevara Other [facility] Other 08-14-2022 11:13-0400 Body height 165.1 cm [facility] 08-14-2022 11:13-0400 Body weight 120.66 kg [facility] 08-14-2022 11:13-0400 Heart rate 60 /min [facility] 08-13-2022 15:40-0400 Body height 163.19 cm Charbel Rodriguez Other [facility] Other 08-13-2022 15:40-0400 Body mass index (BMI) [Ratio] 45.64 kg/m2 Chabrel Rodriguez Other [facility] Other 08-13-2022 15:40-0400 Body temperature 97.7 [degF] Charbel Rodriguez Other [facility] Other 08-13-2022 15:40-0400 Body weight 121.56 kg Charbel Rodriguez Other [facility] Other 08-13-2022 15:40-0400 Diastolic blood pressure 82 mm[Hg] Charbel Rodriguez Other [facility] Other 08-13-2022 15:40-0400 Respiratory rate 18 /min Charbel Rodriguez Other [facility] Other 08-13-2022 15:40-0400 SaO2% (BldA) [Mass fraction] 98 % Charbel Rodriguez Other [facility] Other 08-13-2022 15:40-0400 Systolic blood pressure 132 mm[Hg] Charbel Rodriguez Other [facility] Other 07-07-2022 18:14-0400 Body temperature 98.4 [degF] DO Charbel Rodriguez Work Phone: [facility] 07-07-2022 18:14-0400 Diastolic blood pressure 80 mm[Hg] DO Charbel Rodriguez Work Phone: [facility] 07-07-2022 18:14-0400 Heart rate 65 /min DO Charbel Rodriguez Work Phone: [facility] 07-07-2022 18:14-0400 Respiratory rate 20 /min DO Charbel Rodriguez Work Phone: [facility] 07-07-2022 18:14-0400 SaO2% (BldA) [Mass fraction] 99 % DO Charbel Rodriguez Work Phone: [facility] 07-07-2022 18:14-0400 Systolic blood pressure 147 mm[Hg] DO Charbel Rodriguez Work Phone: [facility] 07-07-2022 18:05-0400 Body height 165.1 cm DO Charbel Rodriguez Work Phone: [facility] 07-07-2022 18:05-0400 Body weight 113.39 kg DO Charbel Rodriguez Work Phone: [facility] Encounters Encounter Date Encounter Type Care Provider Facility Start: 07-09-2024 End: 07-09-2024 ambulatory DO Charbel Rodriguez Work Phone: [facility] Work Phone: Start: 07-09-2024 End: 07-09-2024 Patient encounter procedure DO Charbel Rodriguez Work Phone: [facility] [place] Work Phone: Start: 06-24-2024 Non-patient / Non-visit DO Keegan id Girrosey Work Phone: [facility] Work Phone: Start: 05-28-2024 Non-patient / Non-visit DO Keegan id Girrosey Work Phone: [facility] Work Phone: Start: 05-25-2024 End: 05-25-2024 ambulatory SYEDA ELMER Not Available Start: 04-28-2024 End: 04-28-2024 ambulatory RYAN MICHAEL Not Available Start: 04-25-2024 Non-patient / Non-visit DO Keegan id Girrosey Work Phone: [facility] Work Phone: Start: 04-20-2024 End: 04-20-2024 ambulatory RYAN MICHAEL Not Available Start: 04-14-2024 Non-patient / Non-visit DO Keegan id Girvin Work Phone: [facility] Work Phone: Start: 04-13-2024 End: 04-13-2024 ambulatory DO Charbel Rodriguez Work Phone: [facility] Work Phone: Start: 04-13-2024 End: 04-13-2024 Departed Referred DO Charbel Rodriguez Work Phone: [facility] Start: 04-13-2024 Non-patient / Non-visit DO Keegan id Michael Work Phone: [facility] Work Phone: Start: 04-07-2024 End: 04-07-2024 ambulatory RYAN MICHAEL Not Available Start: 03-31-2024 Non-patient / Non-visit DO Keegan id Michael Work Phone: [facility] Work Phone: Start: 03-31-2024 End: 03-31-2024 ambulatory RYAN MICHAEL Not Available Start: 03-16-2024 Non-patient / Non-visit DO Keegan id Michael Work Phone: [facility] Work Phone: Start: 03-16-2024 End: 03-16-2024 ambulatory RYAN MICHAEL Not Available Start: 03-11-2024 Non-patient / Non-visit DO Keegan id Michael Work Phone: [facility] Work Phone: Start: 03-04-2024 End: [...] Available Start: 09-13-2023 End: 09-13-2023 ambulatory Charbel Michael Other [facility] Other Start: 09-13-2023 Telephone encounter Charbel Rodriguez [facility] Start: 09-10-2023 End: 09-10-2023 ambulatory SONIA Jerez VISCI Not Available Start: 06-24-2023 End: 06-24-2023 ambulatory Charbel Rodriguez Other [facility] Other Start: 06-24-2023 Telephone encounter Charbel Rodriguez [facility] [place] Start: 06-03-2023 End: 06-03-2023 ambulatory Charbel Rodriguez Other [facility] Other Start: 06-03-2023 Telephone encounter Charbel Rodriguez [facility] [place] Start: 05-27-2023 End: 05-27-2023 ambulatory Charbel Rodriguez Other [facility] Other Start: 05-27-2023 Telephone encounter Charbel Rodriguez [facility] Start: 05-08-2023 End: 05-08-2023 ambulatory Charbel Rodriguez Other [facility] Other Start: 05-08-2023 Office outpatient vi sit 15 minutes Charbel Rodriguez [facility] Start: 04-26-2023 End: 04-26-2023 ambulatory Charbel Rodriguez Other [facility] Other Start: 04-26-2023 Telephone encounter Charbel Rodriguez [facility] Start: 04-19-2023 End: 04-19-2023 ambulatory Charbel Rodriguez Other [facility] Other Start: 04-19-2023 Telephone encounter Charbel Rodriguez [facility] Start: 04-17-2023 End: 04-17-2023 ambulatory CHARBEL ARROYO ALICEROSEY Facility:[facility] Start: 04-17-2023 End: 04-17-2023 Patient encounter procedure Tessa Sanchez MD Work Phone: Orthopaedics Comment on above: 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) Start: 04-12-2023 End: 04-12-2023 ambulatory Charbel Rodriguez Other [facility] Other Start: 04-12-2023 Office outpatient vi sit 15 minutes Charbel Rodriguez [facility] Start: 03-13-2023 End: 03-13-2023 ambulatory CHARBEL DINA ALICEROSEY Facility:[facility] Start: 02-28-2023 Telephone encounter Tessa bates MD Work Phone: Orthopaedics Comment on above: Electronic Communica tion (PT order faxed today) Start: 01-10-2023 Telephone encounter Tessa bates MD Work Phone: Orthopaedics Comment on above: Return To Work Lette r Start: 01-02-2023 End: 01-02-2023 ambulatory CHARBEL CAMARILLOROSEY Facility:[facility] Start: 01-02-2023 End: 01-02-2023 Subsequent hospital visit by physician Mike [facility] Work Phone: Radiology Comment on above: [...] Update Start: 12-07-2022 End: 12-07-2022 ambulatory Ronda Bettencourtler Other [facility] Other Start: 12-07-2022 Office outpatient vi sit 25 minutes Ronad Guevara [facility] Start: 12-07-2022 Telephone encounter Charbel Rodriguez [facility] Start: 11-19-2022 End: 11-19-2022 ambulatory Charbel Rodriguez Other [facility] Other Start: 11-19-2022 Telephone encounter Charbel Rodriguez [facility] Start: 11-14-2022 End: 11-14-2022 Patient encounter procedure Tessa Sanchez MD Work Phone: Orthopaedics Comment on above: 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) Start: 11-14-2022 End: 11-14-2022 Subsequent hospital visit by physician Xr [facility] Work Phone: Radiology Comment on above: Osteochondritis diss ecans of right talus [M93.271] Start: 11-14-2022 End: 11-14-2022 ambulatory CHARBEL RODRIGUEZ [facility] Other Start: 11-14-2022 Telephone encounter Charbel Rodriguez [facility] Start: 11-13-2022 End: 11-14-[address] CHARBEL RODRIGUEZ Facility: Start: 11-12-2022 End: 11-12-2022 ambulatory Charbel Rodriguez Other [facility] Other Start: 11-12-2022 Telephone encounter Charbel Rodriguez [facility] Start: 10-31-2022 Orders Only Tessa Vasquez Work Phone: Orthopaedics Comment on above: 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) Start: 10-10-2022 End: 10-10-2022 ambulatory CHARBEL RODRIGUEZ Facility:[facility] Start: 10-10-2022 End: 10-10-2022 Patient encounter procedure Tessa Sanchez MD Work Phone: Orthopaedics Comment on above: 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) Start: 09-26-2022 Telephone encounter Tessa bates MD Work Phone: Orthopaedics Comment on above: Patient Question Start: 09-12-2022 End: 09-12-2022 ambulatory CHARBEL RODRIGUEZ Facility:[facility] Start: 09-12-2022 End: 09-12-2022 Patient encounter procedure [employer] Work Phone: Orthopaedics Comment on above: 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) Start: 09-05-2022 End: 09-05-2022 ambulatory Charbel Rodriguez Other [facility] Other Start: 09-05-2022 Telephone encounter Charbel Rodriguez [facility] [employer] [facility] [place] Start: 09-03-2022 End: 09-03-2022 ambulatory Charbel Rodriguez Other [facility] Other Start: 09-03-2022 Telephone encounter Charbel Rodriguez [facility] [employer] Comment on above: post op right ankle swelling and pain Start: 09-02-2022 Telephone encounter Eyad marroquin MD Work Phone: Surgical Intensive Care Unit Comment on above: Patient Question Start: 08-29-2022 End: 08-29-2022 Patient encounter procedure [employer] Work Phone: Orthopaedics Comment on above: 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) Start: 08-29-2022 End: 08-29-2022 ambulatory CHARBEL ARROYO [employer] [facility] [employer] Other Start: 08-29-2022 Telephone encounter Charbel Rodriguez [facility] Start: 08-28-2022 End: 08-28-2022 ambulatory TESSA SANCHEZ Facility:[facility] Start: 08-27-2022 Refill Tessa Vasquez Work Phone: Orthopaedics Comment on above: Refill Request Start: 08-24-2022 End: 08-24-2022 ambulatory CHARBEL RODRIGUEZ Facility:[facility] Start: 08-16-2022 End: 08-16-2022 ambulatory Charbel Rodriguez Other [facility] Other Start: 08-16-2022 Telephone encounter Charbel Rodriguez [facility] Start: 08-15-2022 Telephone encounter Tessa bates MD Work Phone: Pre Anesthesia Comment on above: Results; Preparation s For Surgery Start: 08-15-2022 End: 08-15-2022 ambulatory CHARBEL RODRIGUEZ Facility:[facility] Start: 08-14-2022 Encounter for other preprocedural examination CHARBEL RODRIGUEZ [facility] Start: 08-14-2022 End: 08-14-2022 Admission to establishment [facility] Start: 08-14-2022 End: 08-14-2022 ambulatory TESSA SANCHEZ Pre Anesthesia Comment on above: Preop examination (P rimary Dx); Anemia, unspecified type; Difficult intravenous access; Acute bilateral low back pain without sciatica; History of syncope; History of palpitations; Former smoker; BMI 40.0-44.9, adult ([facility]) Start: 08-14-2022 End: 08-14-2022 Preprocedural examination done [facility] Pre Anesthesia Start: 08-13-2022 End: 08-13-2022 ambulatory Charbel Rodriguez Other [facility] Other Start: 08-13-2022 Office outpatient vi sit 15 minutes Charbel Rodriguez [facility] Start: 08-13-2022 Telephone encounter Charbel Rodriguez [facility] Start: 2022 End: 2022 ambulatory CHARBEL RODRIGUEZ Facility:[facility] Start: 2022 End: 2022 Patient encounter procedure Tessa Sanchez MD Work Phone: Orthopaedics Comment on above: 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) Start: 08-01-2022 End: 08-01-[address] CHARBEL RODRIGUEZ Facility:[facility] Start: 07-09-2022 End: 07-09-2022 ambulatory Charbel Rodriguez Other [facility] Other Start: 07-09-2022 Telephone encounter Charbel Rodriguez [facility] Start: 07-07-2022 End: 07-07-2022 Emergency department patient visit DO Charbel Rodriguez Work Phone: [facility] Start: 06-28-2022 End: 06-28-[address] CHARBEL RODRIGUEZ Facility:[facility] Start: 05-23-2022 End: 05-23-2022 ambulatory Charbel Rodriguez Other [facility] Other Start: 05-23-2022 Telephone encounter Charbel Rodriguez [facility] Start: 01-06-[address] CHARBEL RODRIGUEZ [...] DTaP,Tdap,Td Vaccine (7 - Td or Tdap) [facility] Start: 06-28-[address] [facility] Start: 08-14-2022 End: 10-14-2022 Basic metabolic 2000 panel - Serum or Plasma BASIC METABOLIC PNL Lab Routine History of syncope Expected: 08/14/2022, Expires: 10/14/2022 [facility] Work Phone: Comment on above: Expected: 08/14/2022 , Expires: 10/14/2022 Start: 08-14-2022 End: 10-14-2022 CBC panel - Blood by Automated count CBC Lab Routine Preop examination Anemia, unspecified type Expected: 08/14/2022, Expires: 10/14/2022 [facility] Work Phone: Comment on above: Expected: 08/14/2022 , Expires: 10/14/2022 Start: 07-07-2022 X-ray of right ankle XR ankle RT min 3V* [facility] Start: 07-07-2022 XR Ankle - right GE 3 Views [facility] Work Phone: Start: 06-28-2022 Influenza vaccination INFLUENZA (#1) [facility] Start: 10-28-2021 DEPRESSION ASSESSMENT DEPRESSION ASS ESSMENT [facility] Start: 2015 PAP TESTING PAP TESTING [facility] Start: 2013 Urine microalbumin profile DTAP,TDAP,TD (1 - Tdap) [facility] Start: 2012 HEPATITIS C SCREENING HEPATITIS C SC REENING [facility] Start: 2012 HIV SCREENING HIV SCREENING [facility] Start: 2000 PNEUMOCOCCAL (1 - PCV) PNEUMOCOCCAL (1 - PCV) [facility] Start: 02-06-1995 COVID-19 VACCINE (#1) COVID-19 VACCI NE (#1) [facility] Start: 1994 HEPATITIS B (1 of 3 - 3-dose series) HEPATITIS B (1 of 3 - 3-dose series) [facility] Patient Education Ankle Sprain ED [facility] Work Phone: Patient referral [facility] Work Phone: End: 11-30-2023 XR ANKLE GENERAL 3V AP/LAT/OBL RIGHT XR ANKLE GENERAL 3V AP/LAT/OBL RIGHT Radiology Routine Osteochondritis dissecans of right talus 1 Occurrences starting 11/02/2022 until 11/30/2023 [facility] Work Phone: Comment on above: 1 Occurrences starti ng 11/02/2022 until 11/30/2023 [facility] Immunizations Immunization Date Immunization Notes Care Provider Fa snow 11-29-2021 tetanus toxoid, reduced diphtheria toxoid, and acellular pertussis vaccine, adsorbed DO Charbel Rodriguez Work Phone: [facility] NEGATED: Highlighted row has not occurred!08-07-2019 influenza, seasonal, injectable Patient Objection Charbel Rodriguez Other [facility] Other Payers Date Payer Category Payer Self-pay [id number] 2022 Medicaid [id number] 2. [id number] 2021 Medicaid [id number]. [id number] 5 2018 Unknown [id number]. 1.13.159.2.7.3.577748.31 5 1994 Unknown [id number] 2.16.84 0.1.183925.3.579.2.593 1994 Unknown [id number] 2.16.84 0.1.277956.3.579.2.593 1994 Unknown [id number] 2.16.84 0.1.002485.3.579.2.593 1994 Unknown [id number] 2.16.84 0.1.483512.3.579.2.593 1994 Unknown [id number] 2.16.84 0.1.583189.3.579.2.1259 1994 Unknown [id number] 2.16.84 0.1.002004.3.579.2.1259 1994 Unknown [id number] 2.16.84 0.1.969395.3.579.2.1259 1994 Unknown [id number] 2.16.84 0.1.403110.3.579.2.1259 1994 Unknown [id number] 2.16.84 0.1.950985.3.579.2.1259 1994 Unknown [id number] 2.16.84 0.1.270116.3.579.2.1259 1994 Unknown [id number] 2.16.84 0.1.594217.3.579.2.1259 1994 Unknown [id number] 2.16.84 0.1.726833.3.579.2.1259 1994 Unknown [id number] 2.16.84 0.1.376212.3.579.2.1259 1994 Unknown [id number] 2.16.84 0.1.368653.3.579.2.1259 1994 Unknown [id number] 2.16.84 0.1.742850.3.579.2.1259 1994 Unknown [id number] 2.16.84 0.1.273770.3.579.2.1259 1994 Unknown [id number] 2.16.84 0.1.666214.3.579.2.1259 1994 Unknown [id number] 2.16.84 0.1.700670.3.579.2.1259 1994 Unknown [id number] 2.16.84 0.1.972762.3.579.2.1259 1994 Unknown [id number] 2.16.840 .1.902466.3.579.2.1259 1994 Unknown [id number] 2.16.840 .1.705930.3.579.2.1259 1994 Unknown [id number] 2.16.840 .1.732792.3.579.2.9 1994 Unknown [id number] 2.16.840. 1.158436.3.579.2.1259 1959 Medicaid [id number] 1959 Unknown [id number] Medicaid [employer]age [id number] Unknown [id number] 2.16.8 40.1.618007.3.579.2.531 Social History Date Type Detail Facility Start: 07-07-2022 End: 01-13-2024 Tobacco smoking status OKIS Ex-smoker (finding) [facility] Start: 1995 Sex Assigned At Female F [facility] Start: 10-03-2018 Tobacco smoking stat us [facility] Occasional tobacco smoker [facility] Start: 10-03-2018 End: 08-14-2022 Tobacco use and exposure Smokeless tobacco non-user [facility] Start: 01-01-2019 End: 08-14-2022 Alcohol intake Current non-drinker of alcohol (finding) [facility] Start: 1995 Sex Assigned At Not on file [facility] Start: 08-14-2022 End: 11-10-2022 Sex Assigned At [employer] Other End: 10-28-2019 History of tobacco use Current smoker [facility] Work Phone: End: 10-28-2019 History of tobacco use Cigarette Smoker [facility] Work Phone: Start: 08-14-2022 End: 11-10-2022 Cigarettes smoked current (pack per day) - Reported 0.3 [facility] Start: 08-04-2022 End: 08-28-2022 Exposure to SARS-CoV-2 (event) Not sure [facility] Work Phone: National Score (1-100), lower number is lower risk 86 [facility] Clinical Notes 05-23-2022 to 06-03-2023 Note Date & Type Note Facility 06-03-2023 Evaluation note Encounter Date Diagnosis Assessment Notes May, Depression (ICD-10 - F32.9) [facility] Other [id number] Evaluation note* Encounter Date Diagnosis Assessment Notes [...] her dose should be increased or not. [facility] Other 06-30-2023 Evaluation note* Encounter Date Diagnosis Assessment Notes Treatment Notes Treatment Clinical Notes Mar, Weight gain (ICD-10 - R63.5) [facility] Other 06-21-2023 NoteHNO ID: [id number] Author: Tessa Sanchez MD Service: ? Author [...] records. This note was partially generated using [employer] voice recognition system, and there may be some incorrect words, spellings, and punctuation that were not noted in checking the note before saving. Tessa Sanchez M.D.[facility]06-21-2023 History of Present illness Narrative* [...] and is of normal mood and affect. [facility] 07/02/2022 Gait Cycle: Normal Yes, [...] records. This note was partially generated using [employer] voice recognition system, and there may be some incorrect words, spellings, and punctuation that were not noted in checking the note before saving. Tessa Sanchez M.D. documented in this encounterL[facility] City Hospital06-16-2023 Evaluation note* Encounter Date Diagnosis Assessment [...] can take a multivitamin daily ([place] Complete) [facility] Other 05-17-2023 NoteHNO ID: [id number] Author: Tessa Sanchez MD Service: ? Author Type: Physician Type: Progress Notes Filed: 03/13/2023 8:03 PM Note Text: Edith Wells returns today to follow up from surgery on 08/28/22: right ankle arthroscopy, excision OCD medial talus, microfracture of talus, synovectomy, surgeon monitored fluoroscopy. She states that she does feel pain today /10 she states that its stabbing pain. She [...] records. This note was partially generated using [employer] voice recognition system, and there may be some incorrect words, spellings, and punctuation that were not noted in checking the note before saving. Tessa Sanchez M.D.[facility]05-05-2023 Miscellaneous Notes* Telephone Encounter - Lizzette Adams RN - 03/01/2023 10:21 AM EDT Faxed today at 10:20am. Lizzette Adams RN * Telephone Encounter - Margy Tidwell - 02/28/2023 4:08 PM EDT Patient wants to get physical therapy at [facility] in [place]. Has been approved by [facility] and she can now schedule. Asking for recent therapy order from Dr Sanchez be faxed to [facility] in [place] at [phone]. documented in this encounterLima City Hospital03-17-2023 Miscellaneous Notes* Telephone Encounter - Lizzette [...] calling: self Call patient at: at home [phone] (home) [phone] (cell) Was an appointment scheduled: No Closing statement: Results or non-symptom based questions: Thank you for calling [facility], your call will be returned within [...] back to the office to update CALL [phone] documented in this encounterLima City Hospital03-08-2023 NoteHNO ID: [id number] Author: RT Rubina(R) Service: Radiology Author Type: [...] Cespedes RT RT(R) January 02, 2023 4:10 [facility]03-08-2023 NoteHNO ID: [id number] Author: Tessa Sanchez MD Service: ? Author [...] records. This note was partially generated using [employer] voice recognition system, and there may be [...] Past Histories independently gathered by the clinical medical support specialist and the remaining scribed note accurately describes my personal service to the patient. Tessa Sanchez M.D.[facility]03-08-2023 History of Present illness Narrative* Blaise Glynn [...] 02, 2023 4:10 PM documented in this encounterLima City Hospital03-08-2023 History of Present illness Narrative* Tessa [...] records. This note was partially generated using [employer] voice recognition system, and there may be [...] Past Histories independently gathered by the clinical medical support specialist and the remaining scribed note accurately describes my personal service to the patient. Tessa Sanchez M.D. documented in this encounterLima City Hospital02-24-2023 Miscellaneous Notes* Telephone Encounter - Vinay Corona RN - 12/21/2022 5:34 PM EST This RN called and spoke with patient. Letter sent via NMRKT she report she received it. 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 She was grateful for the call. Vinay [...] that prevented her form having PT. CALL [phone] * Telephone Encounter - Autumn Clayton - [...] with update Please advise documented in this encounterLima City Hospital02-24-2023 Miscellaneous Notes* Telephone Encounter - Vinay [...] office to complete them. documented in this encounterLima City Hospital02-10-2023 Evaluation note* Encounter Date Diagnosis Assessment [...] treatment plan. Patient left in stable condition [facility] Other 01-23-2023 Evaluation note* Encounter Date Diagnosis Assessment Notes Treatment Notes Treatment Clinical Notes Oct, Cough (ICD-10 - R05.9) Oct, Sore throat (ICD-10 - J02.9) Oct, Headache (ICD-10 - R51.9) Oct, Congestion of nasal sinus (ICD-10 - R09.81) [facility] Other 01-18-2023 NoteHNO ID: [id number] Author: RT Marquis(Wayne) Service: Radiology Author Type: [...] PERIPHERAL IV DATA: Not applicable SIGNED BY: BETTIE Cho) November 14, 2022 4:05 [facility]01-18-2023 History of Present illness Narrative* Syeda Jenninsg RT(Wayne) - 11/14/2022 4:00 PM EST Radiology [...] 14, 2022 4:05 PM documented in this encounterLima City Hospital01-18-2023 Evaluation note* Encounter Date Diagnosis Assessment Notes Treatment Notes Treatment Clinical Notes Oct, Leukocytosis (ICD-10 - D72.829) [facility] Other 01-17-2023 NoteHNO ID: [id number] Author: Tessa Sanchez MD Service: ? Author [...] and follow-up in 4 weeks Tessa Sanchez [facility]01-17-2023 History of Present illness Narrative* Tessa Sanchez [...] NA Pin sites: NA Right ankle pain: 6/ Calf assessment: soft, non-tender, no complaints of pain Concerns: none currently Xrays done today: Debridement area looks stable and the talus Followup and plan: May transition with progressive weightbearing as discussed today. Physical therapy range of motion strengthening proprioception and follow- up in 4 weeks Tessa Sanchez MD documented in this encounterLima City Hospital01-16-2023 Evaluation note* Encounter Date Diagnosis Assessment [...] this done at the [facility] lab. She can call for results. [...] Oct, Other 2:54 PM - 3:02 PM [facility] Other 12-14-2022 NoteHNO ID: [id number] Author: Tessa Sanchez MD Service: ? Author [...] instructed and follow-up in 6 weeks for jeff Sanchez [facility]12-14-2022 History of Present illness Narrative* Tessa Sanchez [...] cordelleck Tessa Sanchez MD documented in this encounterLima City Hospital12-02-2022 Miscellaneous Notes* Telephone Encounter - Lizzette [...] pm. Patient requesting a return call through #[phone] #[phone]. The second number is her boyfriends line, Elias. Patient gives okay to leave me ssage with Elias if needed. Please advise. documented in this encounterLima City Hospital11-16-2022 NoteHNO ID: [id number] Author: Tessa Sanchez MD Service: ? Author [...] follow up in 4 weeks. Tessa Sanchez [facility]11-16-2022 NoteHNO ID: [id number] Author: Alfred Campo Cast Service: ? Author Type: ? Type: Progress Notes Filed: 09/12/2022 4:10 PM Note Text: PT ASSESSMENT - CASTING ROOM Edith presents for cast removal. Applied pneumatic aircast walker(HAD PRIOR TO SURGERY) to Right leg non-weight bearing Patient has been instructed in Care of boot.. Alfred Campo Cast Beeper: [id number]11-[facility]-20[facility] History of Present illness Narrative* [...] weeks. Tessa Sanchez MD documented in this encounterLima City Hospital11-16-2022 History of Present illness Narrative* Alfred Campo Cast - 09/12/2022 4:04 PM EST PT ASSESSMENT - CASTING ROOM Edith presents for cast removal. Applied pneumatic aircast walker(HAD PRIOR TO SURGERY) to Right leg non-weight bearing Patient has been instructed in Care of boot.. Alfred Campo Cast Beeper: [id number] documented in this encounterLima City Hospital11-07-2022 Miscellaneous Notes* Telephone Encounter - Lizzette [...] until 09/12. Please advise. documented in this encounterLima City Hospital11-07-2022 NoteHNO ID: [id number] Author: Lizzette Adams RN Service: ? Author [...] was the physician present today. Lizzette Adams [facility]11-06-2022 Miscellaneous Notes* Telephone Encounter - [...] MD Orthopaedic Surgery, PGY-3 documented in this encounterLima City Hospital11-02-2022 NoteHNO ID: [id number] Author: Alfred Campo Cast Service: ? Author Type: ? Type: Progress Notes Filed: 08/29/2022 3:44 PM Note Text: PT ASSESSMENT - CASTING ROOM Edith presents for Application of cast. Applied short cast: to Right leg non-weight bearing Patient has been instructed in Care of cast.. Alfred Campo Cast Beeper: [id number] [facility]11-02-2022 History of Present illness Narrative* Alfred Campo Cast - 08/29/2022 3:40 PM EDT PT ASSESSMENT - CASTING ROOM Edith presents for Application of cast. Applied short cast: to Right leg non-weight bearing Patient has been instructed in Care of cast.. 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, 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 Reason for block: post-op pain management/at surgeon's [...] August 28, 2022 TIME: 1:00 PM CSN: [id number] NoteHNO ID: [id number] Author: GEORGIE Tinsley Service: Anesthesiology Author Type: Telegraph Office Telephone Clerk Type: Anesthesia Procedure Notes Filed: 08/28/2022 10:57 [...] August 28, 2022 TIME: 10:56 AM CSN: [id number] NoteHNO ID: [id number] Author: Mike Alcantar MD Service: Anesthesiology Author Type: Anesthesiologist Type: Anesthesia Procedure Notes Filed: 08/28/2022 9:35 AM Note Text: ANESTHESIOLOGY PROCEDURE NOTE Peripheral Nerve Block General Information Procedure Start Time/Medication Administration: 08/28/2022 9:16 AM Procedure End time: 08/28/2022 9:24 AM Patient location during procedure: pre-op Timeout Performed Pre-procedure: timeout performed (920) Consent Obtained: Yes 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 She had her [...] Kasi Mathur PA-C PACC documented in this encounterLima City Hospital10-18-2022 Instructions* Patient Instructions* Kasi Mathur PA-C - 08/14/2022 11:33 AM EDT [facility] [id number] PREOPERATIVE INSTRU[facility] Tessa Sanchez MD has scheduled you for your procedure at this surgery center: [facility]: [phone] --[phone] [address]. Please read below carefully for your personalized [...] Procedures: - YOU MUST HAVE A RESPONSIBLE SENIOR PRODUCER TAKE YOU HOME. A CORE CUTTER OR MEDICAL INTERN CANNOT BE MADE A RESPONSIBLE SENIOR PRODUCER. - We recommend that a responsible person [...] Advance Directive, please fax a copy to [phone] or email to for it to be [...] day. Kasi Mathur PA-C documented in this encounterLima City Hospital10-18-2022 History and physical note * Kasi [...] fevers. Neuro: No history of TIA's, stroke, SPRAY BLENDER tumor, impaired sensorium, hemiplegia, paraplegia or quadraplegia. [...] or incontinence,, stones or chronic kidney disease BAKERY HELPER: Negative for abnormal vaginal bleeding, abnormal vaginal [...] visit: Labs per care everywhere reviewed: 11/29/2021 [facility] CBC Hgb 9.0 (11.8-15.4) Hct 26.5% (34-46.4%) [...] a prior CC echocardiographic exam for comparison. property assessment monitor 09/17/2018 Patient had a min HR of 36 bpm, max HR of 156 bpm, and avg HR of 74 bpm. Predominant underlying rhythm was Sinus Rhythm. No Isolated SVEs, SVE Couplets, or SVE Triplets were present. Isolated VEs were frequent (8.2%, 36058), and no VE Couplets or VE Triplets were present. Ventricular Bigeminy and Trigeminy were present. Many symptomatic events occurred in the absence of arrhythmia. Independently reviewed and verified Yiafn Bernal MD September 17, 2018 1:52 PM [...] ppd x years 8. BMI 40.0-44.9, adult (HCC) BMI 44 METS: Climb a flight of [...] 11:04 AM PAGER/CONTACT #: documented in this encounterLima City Hospital10-17-2022 Evaluation note* Encounter Date Diagnosis Assessment [...] she can discuss this treatment with her aligning inspector. She is having surgery on 08-28-22. Guidance [...] be following with Dr. Sanchez at the [facility] location, she was referred to him by Dr. Cosby. She thinks it is bone that is trying to heal. [facility] Other 10-12-2022 NoteHNO ID: [id number] Author: Tessa Sanchez MD Service: ? Author [...] Scan The patient's pertinent medical history from [facility] has been reviewed. PFOMIS forms have [...] the patient, and the (more content not included)...[facility]10-12-2022 History of Present illness Narrative* [...] Scan The patient's pertinent medical history from [facility] has been reviewed. PFOMIS forms have [...] records. This note was partially generated using [employer] voice recognition system, and there may be [...] Past Histories independently gathered by the clinical medical support specialist and the remaining scribed note accurately describes my personal service to the patient. Tessa Sanchez M.D. documented in this encounterLima City Hospital07-27-2022 Evaluation note* Encounter Date Diagnosis Assessment [...] right ankle She has seen an retail performance specialist twice for a right ankle fracture. [...] Apr, Other 9:55 AM - 10:05 AM [facility] Other Evaluation noteNo assessment information available [facility] Work Phone: Evaluation note* Diagnosis Osteochondritis dissecans of right talus- Primary documented in this encounter [facility] [place] noteNo InformationNort PlaceV[facility] Other evaluation note* Diagnosis Preop examination- Primary [...] of right talus documented in this encounter [facility]* Diagnosis Leukocytosis, unspecified type- Primary Osteochondritis dissecans of right talus 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 [facility] Diagnosis Osteochondritis dissecans of right talus- Primary [facility] Diagnosis Osteochondritis dissecans of right talus- Primary [facility] Diagnosis Osteochondritis dissecans of right talus- Primary [facility] Diagnosis Osteochondritis dissecans of right talus- Primary [facility] Diagnosis Osteochondritis dissecans of right talus- Primary [facility] Diagnosis Osteochondritis dissecans of right talus- Primary documented in this encounter [facility] note* Diagnosis Osteochondritis dissecans of right talus- Primary documented in this encounter [facility] note* Diagnosis Osteochondritis dissecans of right talus documented in this encounter [facility] general Narrative - Reported* Type Description Date Medical History reflux Medical History menstrual irregularity Medical History vertigo Medical History anxiety Medical History ankle fx right Surgical History T & A 2004 Surgical History Mole removal Surgical History C section Surgical History IUD -Reyna 03/31/17 Surgical History 11/28/21 Hospitalization History See Above [facility] Other [facility] general Narrative - Reported* Type Description Date Medical History reflux Medical History menstrual irregularity Medical History vertigo Medical History anxiety Medical History ankle fx right Surgical History T & A 2003 Surgical History Mole removal Surgical History C section Surgical History IUD -Reyna 03/31/17 Surgical History 11/28/21 Surgical History right ankle surgery 08/28/22 Hospitalization History See Above [facility] Other [facility] general Narrative - Reported* Type Description Date Medical History reflux Medical History menstrual irregularity Medical History vertigo Medical History anxiety Medical History ankle fx right Surgical History T & A 2003 Surgical History Mole removal Surgical History C section Surgical History IUD -Reyna 03/31/17 Surgical History 11/28/21 Surgical History right ankle surgery 08/28/22 Surgical History IUD removed 03/06/23 Hospitalization History See Above [facility] Other [facility] for referral (narrative)* Diagnostic Procedure Only (Routine) - Pending Review Specialty Diagnoses / Procedures Referred By Juve duarte Referred To Contact XR IMAGING Diagnoses Osteochondritis dissecans of right talus Procedures XR ANKLE GENERAL 3V AP/LAT/OBL RIGHT RADEX ANKLE COMPLETE MINIMUM [address] [place] [address] [place] [address] Xr Imaging Referral ID Status Reason Start Date Expiration Date Visits Requested Visits Authorized [id number] Pending Review Auto-Generat ed Referral 11/02/2022 11/30/2023 [facility] - Pending Review Specialty Diagnoses / Procedures Referred By Juve duarte Referred To Contact Physical Therapy Diagnoses Osteochondritis dissecans of right talus Procedures CONSULT TO PHYSICAL [place]ERAPY Tessa Sanchez [place] [id number] [place] [address] Referral ID Status Reason Start Date Expiration Date V isits Requested Visits Authorized [id number] Pending Review 04/17/2023 07/16/2023 1 1 [facility] for referral (narrative)* Diagnostic Procedure Only (Routine) - Closed Specialty Diagnoses / Procedures Referred By Juve duarte Referred To Contact XR IMAGING Diagnoses Osteochondritis dissecans of right talus Procedures XR ANKLE GENERAL 3V AP/LAT/OBL RIGHT RADEX ANKLE COMPLETE MINIMUM 3 VIEWS Tessa Sanchez [place] [id number] [place] [address] [place] [address] Referral ID Status Reason Start Date Expiration Date V isits Requested Visits Authorized [id number] Closed Auto-Generate d Referral 01/02/2023 01/31/2024 1 1 [facility] for referral (narrative)* Diagnostic Procedure Only (Routine) - Closed Specialty Diagnoses / Procedures Referred By Juve duarte Referred To Contact XR IMAGING Diagnoses Osteochondritis dissecans of right talus Procedures XR ANKLE GENERAL 3V AP/LAT/OBL RIGHT RADEX ANKLE COMPLETE MINIMUM [address] [place] [address] [place] [address] [place] [address] Referral ID Status Reason Start Date Expiration Date V isits Requested Visits Authorized [id number] Closed Auto-Generate d Referral 11/02/2022 11/30/2023 1 1 [facility] Summary Purpose Family History Relationship Condition Age at Onset Recorded Date/T domingo Not Specified No pertinent family history Unknown Relationship Condition Age at Onset Recorded Date/T domingo Not Specified No pertinent family history Unknown grandparent Unknown Aneurysm Unknown grandparent Family history of co ronary artery bypass graft Unknown grandparent Heart disease Unknown Unknown Advance Directives Advance Directive Response Recorded Date/ Time Advance Directives No September 2:17pm Advance Directive Response Recorded Date/ Time Advance Directives No January 12 024 9:18pm Chief Complaint and Reason for Visit Chief Complaint rt ankle pain Chief Complaint Unknown Chief Complaint Unknown strep screen Reason for Referral Specialty Diagnoses / Procedures Referred By Contac t Referred To Contact [facility] Diagnoses Osteochondritis dissecans of right talus Procedures CONSULT TO PHYSICAL THERAPY PHYSICAL THERAPY EVALUATION HIGH COMPLEX [address] [place] [address] [place] [address] [facility] [place] [address] [place] [address] Referral ID Status Reason Start Date Expiration Date Visits Requested Visits Authorized [id number] Pending Review Auto-Generat ed Referral 2 09/12/2023 1 1 Additional Source Comments INFORMATION SOURCE (unrecogn ized section and content) DATE CREATED AUTHOR 05/08/2022 [facility] DATE CREATED AUTHOR AUTHOR'S ORGANIZ ATION 08/29/2022 [facility] DATE CREATED AUTHOR AUTHOR'S ORGANIZ ATION 11/15/2022 [facility] DATE CREATED AUTHOR AUTHOR'S ORGANIZ ATION 05/28/2023 [facility] DATE CREATED AUTHOR AUTHOR'S ORGANIZ ATION 04/20/2024 [facility] DATE CREATED AUTHOR AUTHOR'S ORGANIZ ATION 05/26/2024 [facility] EPIC Care Teams (unrecognized sec tion and content) Team Status: Inactive Member Role Status Dates Charbel Rodriguez DO Primary Care Provider Active Constantine Yee PA-C Emergency Provider Active Team Status: Active Member Role Status Dates Charbel Rodriguez DO Primary Care Provider Active [employer] Relationship Specialty Start Date End Date Charbel Rodriguez DO [address] [place] [address] PCP - General Family Medicine 07/07/18 Charbel Cosby [address] [place] [phone] Referring Orthopedics 07/18/22 [employer] Relationship Specialty Start Date End Date Charbel Rodriguez, DO [address] [place] [phone] PCP - [facility] Family Medicine 07/07/18 Charbel Cosby [address] [place] [phone] Referring Orthopedics 07/18/22 [employer] Relationship Specialty Start Date End Date Charbel Rodriguez, DO [address] [place] [address] PCP - [facility] 07/07/18 Charbel Cosby [address] [place] [address] Referring Orthopedics 07/18/22 [employer] Relationship Specialty Start Date End Date Charbel Rodriguez, DO [address] [place] [address] PCP - [facility] Medicine 07/07/18 Charbel Cosby [address] [place] [address] Referring Orthopedics 07/18/22 [employer] Relationship Specialty Start Date End Date Charbel Rodriguez, DO [address] [place] [address] PCP - [facility] Medicine 07/07/18 Charbel Cosby [address] [place] [address] Referring Orthopedics 07/18/22 [employer] Relationship Specialty Start Date End Date Charbel Rodriguez, DO [address] [place] [address] PCP - [facility] Medicine 07/07/18 Charbel Cosby [address] [place] [address] Referring Orthopedics 07/18/22 [employer] Relationship Specialty Start Date End Date Charbel Rodriguez, DO [address] [place] [address] PCP - [facility] 07/07/18 Charbel Cosby [address] [place] [address] Referring Orthopedics 07/18/22 [employer] Relationship Specialty Start Date End Date Charbel Rodriguez, DO [address] [place] [address] PCP - [facility] 07/07/18 Charbel Cosby [address] [place] [address] Referring Orthopedics 07/18/22 [employer] Relationship Specialty Start Date End Date Charbel Rodriguez, DO [address] [place] [address] PCP - [facility] Medicine 07/07/18 Charbel Cosby [address] [place] [address] Referring Orthopedics 07/18/22 [employer] Relationship Specialty Start Date End Date Charbel Rodriguez, DO [address] [place] [address] PCP - [facility] 07/07/18 Charbel Cosby [address] [place] [address] Referring Orthopedics 07/18/22 [employer] Relationship Specialty Start Date End Date Charbel Rodriguez, DO [address] [place] [address] PCP - [facility] Medicine 07/07/18 Charbel Cosby [address] [place] [address] Referring Orthopedics 07/18/22 [employer] Relationship Specialty Start Date End Date Charbel Rodriguez, DO [address] [place] [phone] PCP - [facility] Medicine 07/07/18 Charbel Cosby [address] [place] [phone] Referring Orthopedics 07/18/22 [employer] Relationship Specialty Start Date End Date Charbel Rodriguez, DO [address] [place] [address] PCP - [facility] Medicine 07/07/18 Charbel Cosby [address] [place] [phone] Referring Orthopedics 07/18/22 [employer] Relationship Specialty Start Date End Date Charbel Rodriguez, DO [address] [place] [address] PCP - [facility] 07/07/18 Charbel Cosby [address] [place] [phone] Referring Orthopedics 07/18/22 [employer] Relationship Specialty Start Date End Date Charbel Rodriguez DO [address] [place] [address] PCP - General Family Medicine 07/07/18 Charbel Cosby [address] [place] [phone] Referring Orthopedics 07/18/22 [employer] Relationship Specialty Start Date End Date Charbel Rodriguez DO [address] [place] [phone] PCP - General Family Medicine 07/07/18 Charbel Cosby [address] [place] [address] Referring Orthopedics 07/18/22 Team Status: Active Member [...] Active Start: 2023 End: April 13, 2024 Team Status: Active Member Role Status Ishan Rodriguez DO Primary Care Provider Active S tart: April 13, 2024 Ryan Rodriguez DO Attending Provider Active Start : April 13, 2024 Team Status: Inactive Member Role Status Ishan Rodriguez DO Primary Care Provider Active S tart: April 13, 2024 End: April 13, 2024 Ryan Rodriguez DO Attending Provider Active Start : April 13, 2024 End: April 13, 2024 Team Status: Active Member Role Status Ishan Rodriguez DO Primary Care Provider Active S tart: April 14, 2024 Ryan Rodriguez DO Attending Provider Active Start : April 14, 2024 Team Status: Active Member Role Status Ishan Rodriguez DO Primary Care Provider Active S tart: April 25, 2024 Christiano Curiel MD Attending Provider Active St art: April 25, 2024 Team Status: Active Member Role Status Ishan Rodriguez DO Primary Care Provide r, Attending Provider Active Start: May 28, 2024 Team Status: Active Member Role Status Ishan Rodriguez DO Primary Care Provider Active S tart: June 24, 2024 Christiano Curiel MD Attending Provider Active St art: June 24, 2024 Team Status: Inactive Member Role Status Ishan Rodriguez DO Primary Care Provide r, Attending Provider Active Start: July 09, 2024 End: July 09, 2024 Goals (unrecognized section and content) Goals may be documented in a n alternate sectionNo InformationNo InformationNo InformationNo InformationNo InformationNo InformationNo InformationNo InformationNo InformationNo InformationNo InformationNo InformationNo InformationNo InformationNo InformationNo InformationNo InformationNo InformationNo InformationNo InformationNo InformationGoals may be documented in an alternate sectionGoals may be documented in an alternate section Source Comments (unrecognize d section and content) In the event this informatio n is protected by the Federal Confidentiality of Alcohol and Drug Abuse Patient Records regulations: The Federal rules restrict any use of the information to criminally investigate or prosecute any alcohol or drug abuse patient.[facility] the event this information is protected by the Federal Confidentiality of Alcohol and Drug Abuse Patient Records regulations: The Federal rules restrict any use of the information to criminally investigate or prosecute any alcohol or drug abuse patient.[facility] the event this information is protected by the Federal Confidentiality of Alcohol and Drug Abuse Patient Records regulations: The Federal rules restrict any use of the information to criminally investigate or prosecute any alcohol or drug abuse patient.[facility] the event this information is protected by the Federal Confidentiality of Alcohol and Drug Abuse Patient Records regulations: The Federal rules restrict any use of the information to criminally investigate or prosecute any alcohol or drug abuse patient.[facility] the event this information is protected by the Federal Confidentiality of Alcohol and Drug Abuse Patient Records regulations: The Federal rules restrict any use of the information to criminally investigate or prosecute any alcohol or drug abuse patient.[facility] the event this information is protected by the Federal Confidentiality of Alcohol and Drug Abuse Patient Records regulations: The Federal rules restrict any use of the information to criminally investigate or prosecute any alcohol or drug abuse patient.[facility] the event this information is protected by the Federal Confidentiality of Alcohol and Drug Abuse Patient Records regulations: The Federal rules restrict any use of the information to criminally investigate or prosecute any alcohol or drug abuse patient.[facility] the event this information is protected by the Federal Confidentiality of Alcohol and Drug Abuse Patient Records regulations: The Federal rules restrict any use of the information to criminally investigate or prosecute any alcohol or drug abuse patient.[facility] the event this information is protected by the Federal Confidentiality of Alcohol and Drug Abuse Patient Records regulations: The Federal rules restrict any use of the information to criminally investigate or prosecute any alcohol or drug abuse patient.[facility] the event this information is protected by the Federal Confidentiality of Alcohol and Drug Abuse Patient Records regulations: The Federal rules restrict any use of the information to criminally investigate or prosecute any alcohol or drug abuse patient.[facility] the event this information is protected by the Federal Confidentiality of Alcohol and Drug Abuse Patient Records regulations: The Federal rules restrict any use of the information to criminally investigate or prosecute any alcohol or drug abuse patient.[facility] the event this information is protected by the Federal Confidentiality of Alcohol and Drug Abuse Patient Records regulations: The Federal rules restrict any use of the information to criminally investigate or prosecute any alcohol or drug abuse patient.[facility] the event this information is protected by the Federal Confidentiality of Alcohol and Drug Abuse Patient Records regulations: The Federal rules restrict any use of the information to criminally investigate or prosecute any alcohol or drug abuse patient.[facility] the event this information is protected by the Federal Confidentiality of Alcohol and Drug Abuse Patient Records regulations: The Federal rules restrict any use of the information to criminally investigate or prosecute any alcohol or drug abuse patient.[facility] the event this information is protected by the Federal Confidentiality of Alcohol and Drug Abuse Patient Records regulations: The Federal rules restrict any use of the information to criminally investigate or prosecute any alcohol or drug abuse patient.[facility] the event this information is protected by the Federal Confidentiality of Alcohol and Drug Abuse Patient Records regulations: The Federal rules restrict any use of the information to criminally investigate or prosecute any alcohol or drug abuse patient.[facility] the event this information is protected by the Federal Confidentiality of Alcohol and Drug Abuse Patient Records regulations: The Federal rules restrict any use of the information to criminally investigate or prosecute any alcohol or drug abuse patient.[facility] the event this information is protected by the Federal Confidentiality of Alcohol and Drug Abuse Patient Records regulations: The Federal rules restrict any use of the information to criminally investigate or prosecute any alcohol or drug abuse patient.[facility] the event this information is protected by the Federal Confidentiality of Alcohol and Drug Abuse Patient Records regulations: The Federal rules restrict any use of the information to criminally investigate or prosecute any alcohol or drug abuse patient.[facility] the event this information is protected by the Federal Confidentiality of Alcohol and Drug Abuse Patient Records regulations: The Federal rules restrict any use of the information to criminally investigate or prosecute any alcohol or drug abuse patient.[facility] the event this information is protected by the Federal Confidentiality of Alcohol and Drug Abuse Patient Records regulations: The Federal rules restrict any use of the information to criminally investigate or prosecute any alcohol or drug abuse patient.[facility] Reason for Visit (unrecogniz ed section and content) Reason Comments Radio Gen RMP Specialty Diagnoses / Procedures Referred By Contac t Referred To Contact XR IMAGING Diagnoses Osteochondritis dissecans of right talus Procedures XR ANKLE GENERAL 3V AP/LAT/OBL RIGHT RADEX ANKLE COMPLETE MINIMUM [address] [place] [address] [place] [address] [place] [address] Referral ID Status Reason Start Date Expiration Date V isits Requested Visits Authorized [id number] Closed Auto-Generate d Referral 11/02/2022 11/30/2023 1 [...] Expiration Date V isits Requested Visits Authorized [id number] Closed Auto-Generate d Referral 01/02/2023 01/31/2024 1 [...] BE BASED ON THE PRIMARY CLINICAL RECORDS. [facility]. provides no warranty or guarantee of the accuracy or completeness of information in this document.
--- NOTE | 2024-11-06 21:05 | XR_ITS ---
The [address] [address] Patient Name: RUSSELL WELLS MRN: [id number] date: 1995 Sex: F Assigned Patient Location: ER Current Patient Location: Accession/Order Number: [id number] Exam Date: 11/06/2024 21:10 Report Date: 11/06/2024 21:55 At the request of: HARSHAD GEORGE Procedure: XR chest 2V EXAM: XR chest 2V HISTORY: cough COMPARISON: 09/04/2021 exam TECHNIQUE: Chest x-ray PA and lateral views. FINDINGS: Clear lungs bilaterally. No acute pulmonary infiltrates. Cardiac shadow within normal. Normal hilar shadows. Central mediastinum. No pleural effusion or pneumothorax. XR/XR chest 2V IMPRESSION: No evidence of acute cardiopulmonary process. Electronically authenticated by: FELA ROBLES Date: 11/06/2024 21:55
[2024-11-06 21:32] LABS: Influenza Virus A Antigen Negative; Influenza Virus B Antigen Negative; Internal Control Within Normal Limits
[2024-11-06 21:33] LABS: Internal Control Within Normal Limits; SARS-CoV-2 Ag NEGATIVE (NEGATIVE)
--- NOTE | 2024-11-06 21:42 | ED_ITS ---
HPI HPI - General Adult General Chief complaint: Upper Respiratory Infection Stated complaint: HEADACHE, DIFF BRETAHING, COUGH Time Seen by Provider: 11/06/24 21:27 Source: patient Mode of arrival: walk-in History of Present Illness HPI narrative: Patient is a 29-year-old female who is presenting to the ER with chief complaint of cough, congestion, sore throat, bilateral frontal headache, mild nausea for the past 4 days. Patient has had loose stool as well for the past few days. Patient's family had COVID 2 weeks ago. 3 family members had COVID that she has been exposed to 2 in the past 2 weeks. Patient has no other acute complaints. No fall, no head injury. Patient has taken nothing in the past for days to help her symptoms. No rash. No neck pain. All systems are negative except as noted/marked. All systems reviewed and otherwise negative. Nurses note and vital signs reviewed and patient is not hypoxic. General: The patient appears well and in no apparent distress. Patient is resting comfortably on cart. Patient is not toxic, lethargic, or listless Skin: Warm, dry, no pallor noted. There is no rash noted. No petechiae, purpura. Head: Normocephalic, atraumatic; mild tenderness to palpation to bilateral frontal sinus. Eye: Normal conjunctiva, no drainage, EOMI. PERRL Ears, Nose, Mouth, and Throat: oral mucosa is moist. Patient has moderate cobblestoning to the posterior pharynx, no posterior pharyngeal erythema, no exudate, no petechiae. Airway is patent. Nares patent. Mouth without vesicles. Cardiovascular: Regular Rate and Rhythm, no murmur, gallop, rub Respiratory: Patient is in no distress, no accessory muscle use, lungs are clear to auscultation, no wheezing, rales or rhonchi. Equal breath sounds bilateral, Back: non-tender, no CVA tenderness bilaterally to percussion. No CT LS midline pain GI: Obese, soft, no midepigastric tenderness to palpation, otherwise no tenderness to palpation, no masses appreciated. No rebound, guarding, or rigidity noted. No distention Musculoskeletal: Patient has full range of motion of all of the extremities, no motor, sensory, or focal neurological deficits Neurological: A&O x4, normal speech Psychiatric: Cooperative Related Data Previous Rx's ?Medication ?Instructions ?Recorded ibuprofen 800 mg tablet 800 mg PO Q8H PRN pain 14 days #40 04/13/24 tabs oxycodone-acetaminophen 5 mg-325 1 tab PO Q6H PRN pain 7 days #28 04/13/24 mg tablet (Percocet) tabs amoxicillin 875 mg-potassium 1 tab PO Q12H #14 tabs 06/30/24 clavulanate 125 mg tablet ondansetron 4 mg disintegrating 4 mg PO Q4H PRN nausea and 11/06/24 tablet vomiting 3 days #6 tabs Allergies Allergy/AdvReac Type Severity Reaction Status Date / Time naproxen (From Aleve) Allergy Severe Verified 04/25/24 20:45 latex Allergy Verified 04/25/24 20:45 Opioid HPI Opioid Management Most Recent Opioid Data: Last Pain Scale 7 04/16/24 13:25 04/16/24 Ur Phencyclidine Scrn Negative (NEGATIVE) 04/13/24 05:20 03/28 05/20 PFSH PFSH Medical History (Updated 11/06/24 @ 21:42 by Lester Moy MD) Frequent headaches ?R51.9 - Headache, unspecified (ICD-10) GERD (gastroesophageal reflux disease) ?K21.9 - Gastro-esophageal reflux disease without esophagitis (ICD-10) Seizures ?R56.9 - Unspecified convulsions (ICD-10) Irregular heart beat ?I49.9 - Cardiac arrhythmia, unspecified (ICD-10) PVC (premature ventricular contraction) ?I49.3 - Ventricular premature depolarization (ICD-10) Anemia ?D64.9 - Anemia, unspecified (ICD-10) Depression ?F32.A - Depression, unspecified (ICD-10) Anxiety ?F41.9 - Anxiety disorder, unspecified (ICD-10) Surgical History (Updated 04/13/24 @ 06:32 by Alber Avila) Hx of section ?Z98.891 - History of uterine scar from previous surgery (ICD-10) Hx of tonsillectomy ?Z90.89 - Acquired absence of other organs (ICD-10) History of ankle surgery ?Z98.890 - Other specified postprocedural states (ICD-10) Family History (Updated 04/13/24 @ 06:06 by Alber Avila) Grandmother Family history of CHF (congestive heart failure) Family history of diabetes mellitus Atrial fibrillation Grandfather Family history of CHF (congestive heart failure) Family history of hypertension Aunt Family history of myocardial infarction Uncle Family history of stroke Atrial fibrillation Brother Cerebral palsy Social History (Updated 04/13/24 @ 06:39 by Alber Avila) Within the past year, how often did you have a drink containing alcohol: never Within the past year, how often did you have six or more drinks on one occasion: never Score interpretation: A score less than 3 is consistent with normal alcohol consumption. Smoking status: Former smoker Non-prescribed substance use: denies use Highest level of school completed/degree received: high school graduate Are you now , , , , never or living with a partner: living with partner In a typical week, how many times do you talk on the telephone with family, friends, or neighbors: 3 or more times per week How often do you get together with friends or relatives: 3 or more times per week Little interest or pleasure in doing things: not at all Feeling down, depressed, or hopeless: not at all Do you think of yourself as: straight/heterosexual Gender Identity: female Exam Constitutional Vital Signs, click to edit/add: Last Vital Signs Temp 98.2 F 11/06/24 20:52 Pulse 60 11/06/24 20:52 Resp 16 11/06/24 20:52 BP 132/99 H 11/06/24 20:52 Pulse Ox 98 11/06/24 20:52 O2 Del Method Room Air 11/06/24 20:52 Course Vital Signs Vital signs: Vital Signs Temperature 98.2 F 11/06/24 20:52 Pulse Rate 60 11/06/24 20:52 Respiratory Rate 16 11/06/24 20:52 Blood Pressure 132/99 H 11/06/24 20:52 Pulse Oximetry 98 11/06/24 20:52 Oxygen Delivery Method Room Air 11/06/24 20:52 Temperature 98.2 F 11/06/24 20:52 Pulse Rate 60 11/06/24 20:52 Respiratory Rate 16 11/06/24 20:52 Blood Pressure 132/99 H 11/06/24 20:52 Pulse Oximetry 98 11/06/24 20:52 Oxygen Delivery Method Room Air 11/06/24 20:52 Medical Decision Making MDM Narrative Medical decision making narrative: Patient's influenza and COVID are negative. Chest x-ray shows no acute cardiopulmonary disease. Patient is taking no medications [id number] to help treat her symptoms. Education was done at bedside on treating her symptoms at home with [id number] products. Patient will follow-up with PCP next week if no improvement. Patient stated that her throat felt much better after having ice cubes that she was sucking on. No question at discharge Lab Data Labs: Lab Results 11/06/24 Range/Units 20:59 Influenza Type A Ag Negative Influenza Type B Ag Negative SARS-CoV-2 Ag (CV2AG) Negative (NEGATIVE) Discharge Plan Discharge Chief Complaint: Upper Respiratory Infection Clinical Impression: Sinus congestion, Bronchitis, Sore throat Patient Disposition: Home, Self-Care Time of Disposition Decision: 21:40 Condition: Fair Mode of Transportation: Private Vehicle Prescriptions / Home Meds: New ondansetron 4 mg tablet,disintegrating 4 mg PO Q4H PRN (Reason: nausea and vomiting) 3 Days Qty: 6 0RF No Action amoxicillin-pot clavulanate 875-125 mg tablet 1 tab PO Q12H Qty: 14 0RF ibuprofen 800 mg tablet 800 mg PO Q8H PRN (Reason: pain) 14 Days Qty: 40 0RF oxycodone-acetaminophen [Percocet] 5-325 mg tablet 1 tab PO Q6H PRN (Reason: pain) 7 Days Qty: 28 0RF Print Language: Belarusian Instructions: Sinusitis (ED), Strep Throat (ED), Acute Bronchitis (ED), Cold Symptoms (ED), How to Use Nasal [place] (ED) Additional Instructions: Increase fluids at home, Gatorade, Powerade, or water. Alternate using DayQuil, NyQuil, and Flonase. Add Mucinex as well as needed. Alternate Tylenol and Motrin every 4 hours to help with fever control, body aches or joint pain. Use rcwb-wot-[id number] vitamin C, vitamin D3, and zinc to help fight infection and help with her immune system. Referrals: CHARBEL RODRIGUEZ [Primary Care Provider] - 1 week
[2024-11-06] MEDS: ONDANSETRON 4 MG RAPDIS TABLET SL (21:53)
[2024-11-06 21:54] VITALS: BP 130/88; PULSE 66; O2SAT 98
== END 2024-11-06 21:56 | disposition home or self-care (01) ==
PROVIDERS: Emergency Provider Emergency Medicine; PCP Family Medicine
DX: J40 Bronchitis, not specified as acute or chronic (principal); J02.9 Acute pharyngitis, unspecified; R09.81 Nasal congestion; Z20.822 Contact with and (suspected) exposure to COVID-19; Z87.891 Personal history of nicotine dependence
CPT/HCPCS: 71046; 87804; 87811; 99284; Q0162

== ENCOUNTER 2024-12-11 20:32 | Emergency (ER) | payer OTHER, SELFPAY ==
[2024-12-11 20:36] VITALS: BP 178/153; PULSE 72; TEMP 36.5; O2SAT 100; BMI 44.9
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
--- OUTSIDE RECORDS SUMMARY | 2024-12-11 20:41 | XMS_ITS | CCD ---
Author Organization [facility] Care Team Providers Care Personal Care Attendant Name Role Phone DO Chrabel Rodriguez Primary Care Provider ANGELY Yee Emergency Provider Charbel Rodriguez DO Primary Care Provider Charbel Cosby Unavailable Charbel Rodriguez Unavailable TESSA SANCHEZ Admitting Unavailable TESSA SANCHEZ Attending Unavailable CHARBEL RODRIGUEZ Primary Care Unavailable Charbel Rodriguez DO Primary Care Provider [phone] Charbel Cosby Unavailable MICHAEL, DR BARGER Primary [...] Referring Unavailable Michael, DO Davis Attending Provider Allergies Allergy Classification Reported Allergen(s) Allergy Type Date of Onset Reaction(s) Facility Ethinyl Estradiol (1 source) Ethinyl Estradiol Drug Allergy 07-15-20 23 [facility] Latex (1 source) Latex Substance Allergy 07-15-20 23 Rash, rash,blisters [facility] Levonorgestrel (1 source) Levonorgestrel Drug Allergy 07-15-20 23 [facility] NSAIDs (1 source) Naproxen Drug Allergy 07-15-20 23 Hives [facility] Phentermine (1 source) Phentermine Drug Allergy 07-15-20 23 chest pain/ elevated BP [facility] tomato allergenic extract (1 source) tomato allergenic extract Drug Allergy 07-15-20 23 stomach upset [facility] (20 sources) Latex; Translations: [Latex] Propensity to adverse reactions 07-07-20 22 Rash, Rash, Blisters, rash,blisters, Rash, rash,blisters [facility] (13 sources) Naproxen; Translations: [NAPROXEN] Drug Allergy 08-01-20 18 Hives [facility] (14 sources) Naproxen; Translations: [Aleve] Drug Allergy 11-25-19 21 Hives [facility] Repository (13 sources) Seasonal allergy Propensity to adverse reactions Unknown [facility] [email or web address] Other (13 sources) Tomato Products Propensity to adverse reactions stomach upset [facility] [email or web address] Other (1 source) natural latex rubber Drug allergy (disorder) 09-04-20 21 [facility] Repository (8 sources) Seasonale Drug allergy Unknown [facility] [email or web address] Other (8 sources) Tomatoes Drug allergy stomach upset [facility] [email or web address] Other (6 sources) Phentermine Drug Allergy 07-15-20 chest pain/ elevated BP [facility] (2 sources) Ethinyl Estradiol Drug Allergy 07-15-20 [facility] Repository (2 sources) Levonorgestrel Drug Allergy 07-15-20 [facility] Repository (1 source) Phentermine Drug Allergy 07-15-20 [facility] Repository (2 sources) tomato allergenic extract Drug Allergy 07-15-20 stomach upset [facility] Repository Medications Current Medications Medication Drug [...] oral solution (5 sources) alpha-Adrenergic Agonist, Uncompetitive E-ufgrzi-X-aspartat e Receptor Antagonist, Sigma-1 Agonist Start: 12-07-19 take 10 mL by mouth every six hours Rwqzkivqj-Tnlvpgxd-QM 30-2-10 MG/5ML 10 mL Orally every 6 [...] on above: Take 1 capsule by mo [facility] four times daily. cyclobenzaprine hydrochloride 5 [...] Comment on above: [facility] daily as needed. 1 in [...] adult; Translations: [BMI 40.0-44.9, adult ([facility])] Onset: 08-14-2022 Chronic Other nutritional; endocrine; [...] S. pyogenes Ag Ql (Unsp spec) Negative [facility] SARS-CoV-2 (COVID-19) RNA HAROLDO+probe Ql (Unsp spec) Negative NEGATIVE [facility] Comment on above: This test has [...] from glycated hemoglobin (Bld) [Mass/Vol] 111 mg/dL [facility] Laboratory - Hematology and Cell countson 05-28-2024 HbA1c (Bld) [Mass fraction] 5.5 % 4.5-6.2 [facility] Comment on above: ADA RECOMMENDED LIMI T 4.0 - 6.0ADA THERAPEUTIC TARGET < 7.0ACTION SUGGESTED> 7.0 Basophils Auto (Bld) [#/Vol] on 04-25-2024 Basophils (Bld) [#/Vol] 0.0 10 3/uL 0.0-0.1 [facility] Basophils/100 WBC Auto (Bld) on 04-25-2024 Basophils/100 WBC (Bld) 0.3 % 0.2-2.0 [facility] Eosinophils/100 WBC Auto (Bl d)on 04-25-2024 Eosinophils/100 WBC (Bld) 4.4 % 0.9-7.0 [facility] Erythrocyte distribution wid th Auto (RBC) [Ratio]on 04-25-2024 Erythrocyte distribution width (RBC) [Ratio] 14.4 % 11.0-15.0 [facility] Estimated glomerular filtrat ion rate (GFR) non- Americanon 04-25-2024 GFR/1.73 sq M.predicted among non-blacks MDRD (S/P/Bld) [Vol rate/Area] mL/min/{1.73_m2} >=60 [facility] Globulin Calc (S) [Mass/Vol] on 04-25-2024 Globulin (S) [Mass/Vol] 4.3 g/dL [facility] Hematocrit Auto (Bld) [Volum e fraction]on 04-25-2024 Hematocrit (Bld) [Volume fraction] 35.7 % Low 36.0-48.0 [facility] Hemoglobin [Mass/volume] in Bloodon 04-25-2024 Hemoglobin (Bld) [Mass/Vol] 11.2 g/dL Low 12.0-16.0 [facility] Laboratory - Chemistry and C hemistry - challengeon 04-25-2024 Albumin [Mass/Vol] 2.9 g/dL Low 3.4-5.0 [facility] ALP [Catalytic activity/Vol] 88 U/L 46-116 [facility] ALT [Catalytic activity/Vol] 16 U/L 14-59 [facility] AST [Catalytic activity/Vol] 9 U/L Low 15-37 [facility] Bilirubin [Mass/Vol] 0.1 mg/dL Low 0.2-1.0 [facility] Calcium [Mass/Vol] 9.4 mg/dL 8.5-10.1 [facility] Chloride [Moles/Vol] 103 mmol/L 98-107 [facility] CO2 [Moles/Vol] 28.4 mmol/L 21.0-32.0 [facility] Creatinine [Mass/Vol] 0.78 mg/dL 0.55-1.02 [facility] GFR/1.73 sq M.predicted MDRD (S/P/Bld) [Vol rate/Area] mL/min/{1.73_m2} >=60 [facility] Glucose [Mass/Vol] 96 mg/dL 74-106 [facility] Lactate [Moles/Vol] 0.9 mmol/L 0.4-2.0 [facility] Potassium [Moles/Vol] 4.1 mmol/L 3.5-5.1 [facility] Protein [Mass/Vol] 7.2 g/dL 6.4-8.2 [facility] Sodium [Moles/Vol] 140 mmol/L 136-145 [facility] Urea nitrogen [Mass/Vol] 19.0 mg/dL High 7.0-18.0 [facility] Urea nitrogen/Creatinine [Mass ratio] 24.4 mg/mg [facility] Laboratory - Hematology and Cell countson 04-25-2024 Immature granulocytes/100 WBC (Bld) 0.3 % 0.0-0.5 [facility] Leukocytes [#/volume] correc zee for nucleated erythrocytes in Blood by Automated counon 04-25-2024 WBC corrected for nucl RBC Auto (Bld) [#/Vol] 7.9 10 3/uL 4.0-11.0 [facility] Lymphocytes Auto (Bld) [#/Vo l]on 04-25-2024 Lymphocytes (Bld) [#/Vol] 3.4 10 3/uL 1.2-3.8 [facility] Lymphocytes/100 WBC Auto (Bl d)on 04-25-2024 Lymphocytes/100 WBC (Bld) 42.6 % 20.5-60.0 [facility] MCH Auto (RBC) [Entitic mass ]on 04-25-2024 MCH (RBC) [Entitic mass] 29.3 pg 26.7-34.0 [facility] MCHC Auto (RBC) [Mass/Vol]on 04-25-2024 MCHC (RBC) [Mass/Vol] 31.4 g/dL 29.9-35.2 [facility] MCV Auto (RBC) [Entitic vol] on 04-25-2024 MCV (RBC) [Entitic vol] 93.5 fL 81.0-99.0 [facility] Monocytes Auto (Bld) [#/Vol] on 04-25-2024 Monocytes (Bld) [#/Vol] 0.5 10 3/uL 0.3-0.8 [facility] Monocytes/100 WBC Auto (Bld) on 04-25-2024 Monocytes/100 WBC (Bld) 6.6 % 1.7-12.0 [facility] Neutrophils Auto (Bld) [#/Vo l]on 04-25-2024 Neutrophils (Bld) [#/Vol] 3.6 10 3/uL 1.4-6.5 [facility] Neutrophils/100 WBC Auto (Bl d)on 04-25-2024 Neutrophils/100 WBC (Bld) 45.8 % 43.0-75.0 [facility] No Panel Informationon 04-25 Eosinophils # (Auto) 0.4 10 3/uL 0.0-0.7 [facility] Immature Granulocyte # (Auto) 0.02 10 3/uL 0.00-0.03 [facility] Platelet mean volume Auto (B ld) [Entitic vol]on 04-25-2024 Platelet mean volume (Bld) [Entitic vol] 9.3 fL Low 9.5-13.5 [facility] Platelets Auto (Bld) [#/Vol] on 04-25-2024 Platelets (Bld) [#/Vol] 458 10 3/uL High 150-450 [facility] RBC Auto (Bld) [#/Vol]on RBC (Bld) [#/Vol] 3.82 10 6/uL Low 4.20-5.40 [facility] Serum or plasma albumin/glob ulin mass ratioon 04-25-2024 Albumin/Globulin [Mass ratio] 0.7 {ratio} [facility] Serum or plasma anion gap de terminationon 04-25-2024 Anion gap [Moles/Vol] 12.7 mmol/L [facility] Basophils Auto (Bld) [#/Vol] on 04-14-2024 Basophils (Bld) [#/Vol] 0.0 10 3/uL 0.0-0.1 [facility] Basophils/100 WBC Auto (Bld) on 04-14-2024 Basophils/100 WBC (Bld) 0.3 % 0.2-2.0 [facility] Eosinophils/100 WBC Auto (Bl d)on 04-14-2024 Eosinophils/100 WBC (Bld) 1.7 % 0.9-7.0 [facility] Erythrocyte distribution wid th Auto (RBC) [Ratio]on 04-14-2024 Erythrocyte distribution width (RBC) [Ratio] 14.8 % 11.0-15.0 [facility] Hematocrit Auto (Bld) [Volum e fraction]on 04-14-2024 Hematocrit (Bld) [Volume fraction] 25.6 % Low 36.0-48.0 [facility] Hemoglobin [Mass/volume] in Bloodon 04-14-2024 Hemoglobin (Bld) [Mass/Vol] 8.1 g/dL Low 12.0-16.0 [facility] Laboratory - Hematology and Cell countson 04-14-2024 Immature granulocytes/100 WBC (Bld) 1.0 % High 0.0-0.5 [facility] Leukocytes [#/volume] correc zee for nucleated erythrocytes in Blood by Automated counon 04-14-2024 WBC corrected for nucl RBC Auto (Bld) [#/Vol] 13.3 10 3/uL High 4.0-11.0 [facility] Lymphocytes Auto (Bld) [#/Vo l]on 04-14-2024 Lymphocytes (Bld) [#/Vol] 3.4 10 3/uL 1.2-3.8 [facility] Lymphocytes/100 WBC Auto (Bl d)on 04-14-2024 Lymphocytes/100 WBC (Bld) 25.5 % 20.5-60.0 [facility] MCH Auto (RBC) [Entitic mass ]on 04-14-2024 MCH (RBC) [Entitic mass] 29.1 pg 26.7-34.0 [facility] MCHC Auto (RBC) [Mass/Vol]on 04-14-2024 MCHC (RBC) [Mass/Vol] 31.6 g/dL 29.9-35.2 [facility] MCV Auto (RBC) [Entitic vol] on 04-14-2024 MCV (RBC) [Entitic vol] 92.1 fL 81.0-99.0 [facility] Monocytes Auto (Bld) [#/Vol] on 04-14-2024 Monocytes (Bld) [#/Vol] 1.1 10 3/uL High 0.3-0.8 [facility] Monocytes/100 WBC Auto (Bld) on 04-14-2024 Monocytes/100 WBC (Bld) 7.9 % 1.7-12.0 [facility] Neutrophils Auto (Bld) [#/Vo l]on 04-14-2024 Neutrophils (Bld) [#/Vol] 8.5 10 3/uL High 1.4-6.5 [facility] Neutrophils/100 WBC Auto (Bl d)on 04-14-2024 Neutrophils/100 WBC (Bld) 63.6 % 43.0-75.0 [facility] No Panel Informationon 04-14 Eosinophils # (Auto) 0.2 10 3/uL 0.0-0.7 [facility] Immature Granulocyte # (Auto) 0.13 10 3/uL High 0.00-0.03 [facility] Platelet mean volume Auto (B ld) [Entitic vol]on 04-14-2024 Platelet mean volume (Bld) [Entitic vol] 10.4 fL 9.5-13.5 [facility] Platelets Auto (Bld) [#/Vol] on 04-14-2024 Platelets (Bld) [#/Vol] 271 10 3/uL 150-450 [facility] RBC Auto (Bld) [#/Vol]on RBC (Bld) [#/Vol] 2.78 10 6/uL Low 4.20-5.40 [facility] Basophils Auto (Bld) [#/Vol] on 04-13-2024 Basophils (Bld) [#/Vol] 0.0 10 3/uL 0.0-0.1 [facility] Basophils/100 WBC Auto (Bld) on 04-13-2024 Basophils/100 WBC (Bld) 0.2 % 0.2-2.0 [facility] Buprenorphine [Presence] in Urineon 04-13-2024 Buprenorphine Ql (U) Negative NEGATIVE [facility] Comment on above: DRUG CLASS TEST SYST EM CUT-OFF CONCENTRATIONS ARE ASFOLLOWS:AMP (Amphetamine): 500 ng/mLBAR (Barbiturates): 200 ng/mLBZO (Benzodiazepines): 150 ng/mLBUP (Buprenorphine): 10 ng/mLCOC (Cocaine): 150 ng/mLmAMP (Methamphetamine): 500 ng/mLMTD (Methadone): 200 ng/mLOPI (Opiates): 100 ng/mLOXY (Oxycodone): 100 ng/mLPCP (Phencyclidine): 25 ng/mLTHC (Cannabinoids): 50 ng/mLTCA (Trycyclic Antidepressants): 300 ng/mL Eosinophils/100 WBC Auto (Bl d)on 04-13-2024 Eosinophils/100 WBC (Bld) 1.2 % 0.9-7.0 [facility] Erythrocyte distribution wid th Auto (RBC) [Ratio]on 04-13-2024 Erythrocyte distribution width (RBC) [Ratio] 14.7 % 11.0-15.0 [facility] Hematocrit Auto (Bld) [Volum e fraction]on 04-13-2024 Hematocrit (Bld) [Volume fraction] 31.2 % Low 36.0-48.0 [facility] Hemoglobin [Mass/volume] in Bloodon 04-13-2024 Hemoglobin (Bld) [Mass/Vol] 10.1 g/dL Low 12.0-16.0 [facility] Sung 04-13-2024 L Specimen: [id number] Received: 04/13/24 Status: SY Warren Num: [id number] Spec Type: Surgical Subm Dr: Ryan Rodriguez Tissues: A Fallopian Tube - Sterilization (BILATERAL FALLOPIAN TUBES) B Placenta - 3rd Trimester (Greater than 28 weeks) (PLACENTA) Procedures: HE/6, Gross/Micro L5, Gross/Micro L2 Age/ Patient Sex Location Account Attending Physician PriscillaEdith Bong 28/F [facility] [id number] Ryan Rodriguez SPEC NUM: [id number] RECD: 04/13/24 STATUS: SY WARREN NUM: [id number] CIELO: 04/13/24- SUBM DR: Ryan Rodriguez ENTERED: 04/13/[address] [facility] [address]: Anna,Lab SPEC TYPE: Surgical DEPT: [...] amniotic fluid Repeat section, salpingectomy. ---- Specimen: [id number] Received: 04/13/24 Status: SY Warren Num: [id number] Spec Type: Surgical Subm Dr: Ryan Rodriguez Tissues: A Fallopian Tube - Sterilization (BILATERAL FALLOPIAN TUBES) B Placenta - 3rd Trimester (Greater than 28 weeks) (PLACENTA) Procedures: HE/6, Gross/Micro L5, Gross/Micro L2 ---- Patient: Edith Wells [id number] (Continued) ---- Specimen: [id number] Received: 04/13/24 (Continued) Signed (signature on file) Lashae Phipps MD 04/19/24 1544 ---- Specimen: [id number] Received: 04/13/24 Status: SY Warren Num: [id number] Spec Type: Surgical Subm Dr: Ryan Rodriguez Tissues: A Fallopian Tube - Sterilization (BILATERAL FALLOPIAN TUBES) B Placenta - 3rd Trimester (Greater than 28 weeks) (PLACENTA) Procedures: HE/6, Gross/Micro L5, Gross/Micro L2 ---- Patient: Edith Wells [id number] (Continued) ---- Specimen: [id number] Received: 04/13/24-7473 (Continued) Gross Description A. Received in formalin [...] luminal center lined by unremarkable calhoun mucosa. [employer] sections of each tube are submitted in [...] adjacent (more content not included)... Normal [facility] Laboratory - Chemistry and C hemistry - challengeon 04-13-2024 Chloride [Moles/Vol] 106 mmol/L 98-107 [facility] CO2 [Moles/Vol] 22.8 mmol/L 21.0-32.0 [facility] Potassium [Moles/Vol] 3.8 mmol/L 3.5-5.1 [facility] Sodium [Moles/Vol] 140 mmol/L 136-145 [facility] Bilirubin Ql (U) Negative NEGATIVE [facility] Glucose (U) [Mass/Vol] Negative NEGATIVE [facility] Ketones Ql (U) TRACE mg/dL Abnormal NEGATIVE [facility] pH (U) 7.0 [pH] 5.0-9.0 [facility] Specific gravity (U) [Rel density] 1.025 1.005-1.025 [facility] Urobilinogen Qn (U) 0.2 {Vasquez'U}/dL 0.2-1.0 [facility] Laboratory - Drug toxicology on 04-13-2024 Amphetamines Ql (U) Negative NEGATIVE [facility] Benzodiazepines Ql (U) Negative NEGATIVE [facility] Cocaine Ql (U) Negative NEGATIVE [facility] Opiates Ql (U) Negative NEGATIVE [facility] Phencyclidine Ql (U) Negative NEGATIVE [facility] Laboratory - Hematology and Cell countson 04-13-2024 Immature granulocytes/100 WBC (Bld) 1.1 % High 0.0-0.5 [facility] Laboratory - Specimen inform ationon 04-13-2024 Appearance (U) CLEAR CLEAR [facility] Color (U) YELLOW YELLOW [facility] Laboratory - Urinalysison Amorphous sediment LM Ql (Urine sed) FEW [facility] Leukocyte esterase Test strip Ql (U) Negative NEGATIVE [facility] Mucus Ql (Urine sed) NONE SEEN NONE SEEN [facility] Nitrite Ql (U) Negative NEGATIVE [facility] Protein Ql (U) Negative NEG/TRACE [facility] Leukocytes [#/volume] correc zee for nucleated erythrocytes in Blood by Automated counon 04-13-2024 WBC corrected for nucl RBC Auto (Bld) [#/Vol] 12.9 10 3/uL High 4.0-11.0 [facility] Lymphocytes Auto (Bld) [#/Vo l]on 04-13-2024 Lymphocytes (Bld) [#/Vol] 3.6 10 3/uL 1.2-3.8 [facility] Lymphocytes/100 WBC Auto (Bl d)on 04-13-2024 Lymphocytes/100 WBC (Bld) 27.5 % 20.5-60.0 [facility] MCH Auto (RBC) [Entitic mass ]on 04-13-2024 MCH (RBC) [Entitic mass] 29.5 pg 26.7-34.0 [facility] MCHC Auto (RBC) [Mass/Vol]on 04-13-2024 MCHC (RBC) [Mass/Vol] 32.4 g/dL 29.9-35.2 [facility] MCV Auto (RBC) [Entitic vol] on 04-13-2024 MCV (RBC) [Entitic vol] 91.2 fL 81.0-99.0 [facility] Methadone [Presence] in Urin e by Screen methodon 04-13-2024 Methadone Screen Ql (U) Negative NEGATIVE [facility] Monocytes Auto (Bld) [#/Vol] on 04-13-2024 Monocytes (Bld) [#/Vol] 0.7 10 3/uL 0.3-0.8 [facility] Monocytes/100 WBC Auto (Bld) on 04-13-2024 Monocytes/100 WBC (Bld) 5.7 % 1.7-12.0 [facility] Neutrophils Auto (Bld) [#/Vo l]on 04-13-2024 Neutrophils (Bld) [#/Vol] 8.3 10 3/uL High 1.4-6.5 [facility] Neutrophils/100 WBC Auto (Bl d)on 04-13-2024 Neutrophils/100 WBC (Bld) 64.3 % 43.0-75.0 [facility] No Panel Informationon 04-13 Eosinophils # (Auto) 0.2 10 3/uL 0.0-0.7 [facility] Immature Granulocyte # (Auto) 0.14 10 3/uL High 0.00-0.03 [facility] Urine Bacteria MODERATE #/HPF Abnormal NONE SEEN [facility] Urine Barbiturates Screen Negative NEGATIVE [facility] Urine Culture Reflexed YES [facility] Urine Marijuana (THC) Screen Negative NEGATIVE [facility] Urine Methamphetamines Screen Negative NEGATIVE [facility] Urine Occult Blood Negative NEGATIVE [facility] Urine Other Casts NONE SEEN #/LPF NONE SEEN [facility] Urine Other Crystals Seen #/HPF Abnormal None Seen [facility] Urine RBC 0-2 #/HPF 0-2 [facility] Urine Squamous Epithelial Cells FEW #/LPF Abnormal NONE/RARE [facility] Urine WBC 0-2 #/HPF Abnormal NONE SEEN [facility] Platelet mean volume Auto (B ld) [Entitic vol]on 04-13-2024 Platelet mean volume (Bld) [Entitic vol] 10.8 fL 9.5-13.5 [facility] Platelets Auto (Bld) [#/Vol] on 04-13-2024 Platelets (Bld) [#/Vol] 357 10 3/uL 150-450 [facility] RBC Auto (Bld) [#/Vol]on RBC (Bld) [#/Vol] 3.42 10 6/uL Low 4.20-5.40 [facility] Serum or plasma anion gap de terminationon 04-13-2024 Anion gap [Moles/Vol] 15.0 mmol/L [facility] Urine tricyclic antidepressa nt measurementon 04-13-2024 Tricyclic antidepressants (U) [Mass/Vol] Negative NEGATIVE [facility] oxyCODONE+oxyMORphone [Prese nce] in Urine by Screen methodon 04-13-2024 oxyCODONE+oxyMORphone Screen Ql (U) Negative NEGATIVE [facility] No Panel InformationOrdered By: Ryan Rodriguez on 03-31-2024 Group B Streptococcus Culture [facility] Glucose mean value [Mass/vol ume] in Blood Estimated from glycated hemoglobinon 03-16-2024 Average glucose Estimated from glycated hemoglobin (Bld) [Mass/Vol] 114 mg/dL [facility] Laboratory - Hematology and Cell countson 03-16-2024 HbA1c (Bld) [Mass fraction] 5.6 % 4.5-6.2 [facility] Comment on above: ADA RECOMMENDED LIMI T 4.0 - 6.0ADA THERAPEUTIC TARGET < 7.0ACTION SUGGESTED> 7.0 No Panel Informationon 03-16 Hepatitis C Interpretation Comment . [facility] Comment on above: Not infected with HC V unless early or acute infection issuspected (which may be delayed in an immunocompromisedindividual), or other evidence exists to indicate HCVinfection.Performed at: [facility] [id number] Director: Frankie Aguero PhD, Phone: [phone] Serum or plasma hepatitis C virus antibody signal/cutoff ratio by immunoassay (relation 03-16-2024 HCV Ab Signal/Cutoff IA [Rel units/Vol] Non-Reactive Non Reactive [facility] Basophils Auto (Bld) [#/Vol] on 03-11-2024 Basophils (Bld) [#/Vol] 0.0 10 3/uL 0.0-0.1 [facility] Basophils/100 WBC Auto (Bld) on 03-11-2024 Basophils/100 WBC (Bld) 0.1 % 0.2-2.0 [facility] Eosinophils/100 WBC Auto (Bl d)on 03-11-2024 Eosinophils/100 WBC (Bld) 0.6 % 0.9-7.0 [facility] Erythrocyte distribution wid th Auto (RBC) [Ratio]on 03-11-2024 Erythrocyte distribution width (RBC) [Ratio] 14.1 % 11.0-15.0 [facility] Hematocrit Auto (Bld) [Volum e fraction]on 03-11-2024 Hematocrit (Bld) [Volume fraction] 30.2 % 36.0-48.0 [facility] Hemoglobin [Mass/volume] in Bloodon 03-11-2024 Hemoglobin (Bld) [Mass/Vol] 9.9 g/dL 12.0-16.0 [facility] Laboratory - Chemistry and C hemistry - challengeon 03-11-2024 Chloride [Moles/Vol] 103 mmol/L 98-107 [facility] CO2 [Moles/Vol] 25.7 mmol/L 21.0-32.0 [facility] Potassium [Moles/Vol] 4.0 mmol/L 3.5-5.1 [facility] Sodium [Moles/Vol] 135 mmol/L 136-145 [facility] Bilirubin Ql (U) Negative NEGATIVE [facility] Glucose (U) [Mass/Vol] Negative NEGATIVE [facility] Ketones Ql (U) TRACE mg/dL NEGATIVE [facility] pH (U) 7.5 [pH] 5.0-9.0 [facility] Specific gravity (U) [Rel density] 1.020 1.005-1.025 [facility] Urobilinogen Qn (U) 0.2 {Vasquez'U}/dL 0.2-1.0 [facility] Laboratory - Hematology and Cell countson 03-11-2024 Immature granulocytes/100 WBC (Bld) 0.7 % 0.0-0.5 [facility] Laboratory - Specimen inform ationon 03-11-2024 Appearance (U) CLEAR CLEAR [facility] Color (U) YELLOW YELLOW [facility] Laboratory - Urinalysison Leukocyte esterase Test strip Ql (U) Negative NEGATIVE [facility] Nitrite Ql (U) Negative NEGATIVE [facility] Protein Ql (U) TRACE mg/dL NEG/TRACE [facility] Leukocytes [#/volume] correc zee for nucleated erythrocytes in Blood by Automated counon 03-11-2024 WBC corrected for nucl RBC Auto (Bld) [#/Vol] 9.9 10 3/uL 4.0-11.0 [facility] Lymphocytes Auto (Bld) [#/Vo l]on 03-11-2024 Lymphocytes (Bld) [#/Vol] 2.9 10 3/uL 1.2-3.8 [facility] Lymphocytes/100 WBC Auto (Bl d)on 03-11-2024 Lymphocytes/100 WBC (Bld) 29.1 % 20.5-60.0 [facility] MCH Auto (RBC) [Entitic mass ]on 03-11-2024 MCH (RBC) [Entitic mass] 30.6 pg 26.7-34.0 [facility] MCHC Auto (RBC) [Mass/Vol]on 03-11-2024 MCHC (RBC) [Mass/Vol] 32.8 g/dL 29.9-35.2 [facility] MCV Auto (RBC) [Entitic vol] on 03-11-2024 MCV (RBC) [Entitic vol] 93.2 fL 81.0-99.0 [facility] Monocytes Auto (Bld) [#/Vol] on 03-11-2024 Monocytes (Bld) [#/Vol] 0.6 10 3/uL 0.3-0.8 [facility] Monocytes/100 WBC Auto (Bld) on 03-11-2024 Monocytes/100 WBC (Bld) 6.3 % 1.7-12.0 [facility] Neutrophils Auto (Bld) [#/Vo l]on 03-11-2024 Neutrophils (Bld) [#/Vol] 6.2 10 3/uL 1.4-6.5 [facility] Neutrophils/100 WBC Auto (Bl d)on 03-11-2024 Neutrophils/100 WBC (Bld) 63.2 % 43.0-75.0 [facility] No Panel Informationon 03-11 Eosinophils # (Auto) 0.1 10 3/uL 0.0-0.7 [facility] Immature Granulocyte # (Auto) 0.07 10 3/uL 0.00-0.03 [facility] Urine Microscopic Review NO [facility] Urine Occult Blood Negative NEGATIVE [facility] Platelet mean volume Auto (B ld) [Entitic vol]on 03-11-2024 Platelet mean volume (Bld) [Entitic vol] 9.9 fL 9.5-13.5 [facility] Platelets Auto (Bld) [#/Vol] on 03-11-2024 Platelets (Bld) [#/Vol] 345 10 3/uL 150-450 [facility] RBC Auto (Bld) [#/Vol]on RBC (Bld) [#/Vol] 3.24 10 6/uL 4.20-5.40 [facility] Serum or plasma anion gap de terminationon 03-11-2024 Anion gap [Moles/Vol] 10.3 mmol/L [facility] CNPNon 05-27-2023 CNPN Telephone (4CQ) EDITH WELLS ([id number]) 1995 F Date Time Provider Department 05/27/23 TESSA SANCHEZ 4CQ During your visit today, we recorded the following information about you: Glenis Gavin 05/27/2023 12:11 PM Signed Edith Wells is calling Tessa Sanchez MD today. Patient's therapist at [facility] is asking if she can continue PT but change it to 2 days on land and 0 days in water per week. Needs new order sent to [facility] in [place]. She did not have the fax number. [...] time off per provider's discretion. 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 Call her to inform when she can pick it up. Call cell number below. May leave a message. No chief complaint on file. Patient has been identified by name and birthdate. Duration of symptoms: Person calling: self Call patient at: on cell and , it is OK to leave message [phone] (home) [phone] (cell) Was an appointment scheduled: No Closing statement: Results or non-symptom based questions: Thank you for calling [facility], your call will be returned within [...] Status:Closed by LIZZETTE ADAMS RN on 05/27/23 [facility] CNCOon 04-17-2023 CNCO Letter Text [facility] CNOVon 04-17-2023 CNOV Office Visit (ORAVON ) EDITH WELLS ([id number]) 1995 F Date Time Provider Department 04/17/23 [...] records. This note was partially generated using [employer] voice recognition system, and there may be [...] Order(s):CONSULT TO PHYSICAL THERAPY [9032] Order #: [id number]: 1 FUTURE Prescriptions as of 04/18/2023 - [...] Encounter Status:Closed by TESSA SANCHEZ on 04/18/23 [facility] CNOVon 03-13-2023 CNOV Office Visit (ORAVON ) EDITH WELLS ([id number]) 1995 F Date Time Provider Department 03/13/23 [...] records. This note was partially generated using [employer] voice recognition system, and there may be [...] Encounter Status:Closed by TESSA SANCHEZ on 03/13/23 [facility] 02-28-2023 [facility] Telephone (ORAVON) PRISCILLAEDITH ([id number]) 1995 F Date Time Provider Department 02/28/23 TESSA SANCHEZ During your visit today, we recorded the following information about you: Margysolitario Contreras Pss 02/28/2023 4:09 PM Signed Patient wants to get physical therapy at [facility] in [place]. Has been approved by [facility] and she can now schedule. Asking for recent therapy order from Dr Sanchez be faxed to [facility] in [place] at [phone]. Lizzette Adams RN 03/01/2023 10:22 AM Signed Faxed today at 10:20am. Lizzette Adams RN Allergies As of Date: 02/28/2023 (No Known Allergies) Date Reviewed: 01/02/2023 Reviewed by: Theresa Frederick MA - Fully Assessed Reason for Visit: Electronic Communication [620] Cmt: PT order faxed today Prescriptions as [...] Status:Closed by LIZZETTE ADAMS RN on 03/01/23 [facility] Shayy 01-10-2023 CNPN Telephone (ORAVON) EDITH WELLS ([id number]) 1995 Date Time Provider Department 01/10/23 TESSA [...] back to the office to update CALL [phone] Autumn Clayton 01/10/2023 12:07 PM Signed Edith [...] calling: self Call patient at: at home [phone] (home) [phone] (cell) Was an appointment scheduled: No Closing statement: Results or non-symptom based questions: Thank you for calling [facility], your call will be returned within the next business day. Lizzette Adams RN 01/11/2023 12:04 PM Signed Patient's note faxed today as requested Lizzette Adams RN Nolberto Noguera 02/08/2023 4:15 PM Signed Patient calling in about papers she received in the mail. She does not know what they are or what she needs to do with them. Please call her at [phone]. Lizzette Adasm RN 02/11/2023 10:34 AM Signed I spoke [...] Reason for Visit: Return To Work Letter [5867] Prescriptions as of 02/11/2023 - etodolac (LODINE-XL) [...] by LIZZETTE ADAMS RN on 01/11/23 Normal [facility] CNOVon 01-02-2023 CNOV Office Visit (ORAVON ) EDITH WELLS ([id number]) 1995 F Date Time Provider Department 01/02/23 [...] records. This note was partially generated using [employer] voice recognition system, and there may be [...] Past Histories independently gathered by the clinical technical customer support specialist and the remaining scribed note accurately describes my personal service to the patient. Tessa Sanchez M.D. 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 - cyclobenzaprine (FLEXERIL) 5 (more content not included)... Normal [facility] XR ANKLE 3V AP/LAT/OBL RTon 01-02-2023 [...] malalignment is identified. Joint spaces are maintained. Pheresis Specialist: PSCB Transcribe Date/Time: Jan 02 2023 4:17P Dictated by : RC CIFUENTES MD This examination was interpreted and the report reviewed and electronically signed by: RC CIFUENTES MD on Jan 02 2023 4:18PM EST [id number] Normal [facility] XR ANKLE GENERAL 3V AP/LAT/O BL RIGHTon 01-02-2023 [facility] CNCOon 12-21-2022 CNCO Letter Text Normal [facility] CNPNon 12-21-2022 CNPN Telephone (ORAVON) EDITH WELLS ([id number]) 1995 F Date Time Provider Department 12/21/22 [...] Encounter Status:Closed by VINAY CORONA on 12/21/22 [facility] 12-19-2022 [facility] Telephone (ORAVON) EDITH WELLS ([id number]) 1995 F Date Time Provider Department 12/19/22 [...] that prevented her form having PT. CALL [phone] Vinay Corona RN 12/21/2022 5:35 PM Signed This RN called and spoke with patient. Letter sent via [employer] she report she received it. 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 She was grateful for the call. Vinay Corona GENERAL COUNSEL Allergies As of Date: 12/19/2022 (No Known [...] Encounter Status:Closed by VINAY CORONA on 12/21/22 [facility] CNOVon 11-14-2022 CNOV Office Visit (ORAVON ) EDITH WELLS ([id number]) 1995 F Date Time Provider Department 11/14/22 [...] Status:Closed by TESSA SANCHEZ on 11/14/22 Normal [facility] EBV EARLY ANTIGEN (IgG)on EBV Early Antigen Ab, IgG <9.0 Normal 0.0-8.9 [facility] Comment on above: Result Comment: Nega tive < 9.0 Equivocal 9.0 - 10.9 Positive >10.9 Performed By: #### E BVEARL #### [facility] [address] [place] [address] Dr. Judah Phipps LU-POSADAS VIRUS (EBV) AB PROFILEon 11-14-2022 EBV Ab VCA, IgG 370.0 U/mL Critically high 0.0-17.9 [facility] Comment on above: Result Comment: Nega tive <18.0 Equivocal 18.0 - 21.9 Positive >21.9 Performed By: #### E BVPROF #### [facility] [address] [place] [address] Dr. Judah Phipps EBV Ab VCA, IgM <36.0 Normal 0.0-35.9 [facility] Comment on above: Result Comment: Nega tive <36.0 Equivocal 36.0 - 43.9 Positive >43.9 Performed By: #### E BVPROF #### [facility] [address] [place] [address] Dr. Judah Phipps EBV Nuclear Antigen Ab, IgG 224.0 U/mL Critically high 0.0-17.9 [facility] Comment on above: Result Comment: Nega tive <18.0 Equivocal 18.0 - 21.9 Positive >21.9 Performed By: #### E BVPROF #### [facility] [address] [place] [address] Dr. Judah Phipps Interpretation: Comment Normal [facility] Comment on above: Result Comment: EBV [...] EBNA. Performed By: #### E BVPROF #### [facility] [address] [place] [address] Dr. Judah Phipps XR ANKLE 3V AP/LAT/OBL [...] dislocation. IMPRESSION: Expected postoperative findings as described. Pheresis Specialist: ANYA Transcribe Date/Time: Nov 14 2022 6:35P Dictated by : TINA VEGA MD This examination was interpreted and the report reviewed and electronically signed by: TINA VEGA MD on Nov 15 2022 6:27AM EST [id number] Normal [facility] XR ANKLE GENERAL 3V AP/LAT/O BL RIGHTon 11-14-2022 [facility] AMYLASEon 11-13-2022 Amylase [Catalytic activity/Vol] 42 U/L Normal 25-115 [facility] Comment on above: Performed By: #### L IPA, CMP, SYEDA, PREGQNT #### [facility] [address] [place] [address] Dr. Judah Phipps CBC AUTO DIFFon 11-13-2022 BASO # 0.0 103/ul Normal 0.0-0.1 [facility] Comment on above: Performed By: #### L IPA, CMP, SYEDA, PREGQNT #### [facility] [address] [address] [address] Judah Phipps Basophils/100 WBC (Bld) 0.3 % Normal 0.2-2.0 [facility] Comment on above: Performed By: #### L IPA, CMP, SYEDA, PREGQNT #### [facility] [address] [place] [address] Dr. Judah Phipps EO # 0.5 103/ul Normal 0.0-0.7 [facility] Comment on above: Performed By: #### L IPA, CMP, SYEDA, PREGQNT #### [facility] [address] [place] [address] Dr. Judah Phipps Eosinophils/100 WBC (Bld) 4.0 % Normal 0.9-7.0 [facility] Comment on above: Performed By: #### L IPA, CMP, SYEDA, PREGQNT #### [facility] [address] [place] [address] Dr. Judah Phipps Erythrocyte distribution width (RBC) [Ratio] 13.2 % Normal 11.0-15.0 [facility] Comment on above: Performed By: #### L IPA, CMP, SYEDA, PREGQNT #### [facility] [address] [place] [address] Dr. Judah Phipps Hematocrit (Bld) [Volume fraction] 37.2 % Normal 36.0-48.0 [facility] Comment on above: Performed By: #### L IPA, CMP, SYEDA, PREGQNT #### [facility] [address] [place] [address] Dr. Judah Phipps Hemoglobin (Bld) [Mass/Vol] 12.5 g/dL Normal 12.0-16.0 [facility] Comment on above: Performed By: #### L IPA, CMP, SYEDA, PREGQNT #### [facility] [address] [place] [address] Dr. Judah Phipps IG # 0.04 10e3/ul Critically high 0.00-0.03 [facility] Comment on above: Performed By: #### L IPA, CMP, SYEDA, PREGQNT #### [facility] [address] [place] [address] Dr. Judah Phipps IG % 0.3 % Normal 0.0-0.5 [facility] Comment on above: Performed By: #### L IPA, CMP, SYEDA, PREGQNT #### [facility] [address] [place] [address] Dr. Judah Phipps LYMPH # 4.8 103/ul Critically high 1.2-3.8 [facility] Comment on above: Performed By: #### L IPA, CMP, SYEDA, PREGQNT #### [facility] [address] [place] [address] Dr. Judah Phipps Lymphocytes/100 WBC (Bld) 39.9 % Normal 20.5-60.0 [facility] Comment on above: Performed By: #### L IPA, CMP, SYEDA, PREGQNT #### [facility] [address] [place] [address] Dr. Judah Phipps MANUAL DIFF REQ NO Normal [facility] Comment on above: Performed By: #### L IPA, CMP, SYEDA, PREGQNT #### [facility] [address] [place] [address] Dr. Judah Phipps MCH (RBC) [Entitic mass] 30.5 pg Normal 26.7-34.0 [facility] Comment on above: Performed By: #### L IPA, CMP, SYEDA, PREGQNT #### [facility] [address] [place] [address] Dr. Judah Phipps MCHC (RBC) [Mass/Vol] 33.6 g/dL Normal 29.9-35.2 [facility] Comment on above: Performed By: #### L IPA, CMP, SYEDA, PREGQNT #### [facility] [address] [place] [address] Dr. Judah Phipps MCV (RBC) [Entitic vol] 90.7 fL Normal 81.0-99.0 [facility] Comment on above: Performed By: #### L IPA, CMP, SYEDA, PREGQNT #### [facility] [address] [place] [address] Dr. Judah Phipps MONO # 0.7 103/ul Normal 0.3-0.8 [facility] Comment on above: Performed By: #### L IPA, CMP, SYEDA, PREGQNT #### [facility] [address] [place] [address] Dr. Judah Phipps Monocytes/100 WBC (Bld) 6.1 % Normal 1.7-12.0 [facility] Comment on above: Performed By: #### L IPA, CMP, SYEDA, PREGQNT #### [facility] [address] [address] [address] Judah Phipps NEUT # 5.9 103/ul Normal 1.4-6.5 [facility] Comment on above: Performed By: #### L IPA, CMP, SYEDA, PREGQNT #### [facility] [address] [address] [address] Judah Phipps Neutrophils/100 WBC (Bld) 49.4 % Normal 43.0-75.0 [facility] Comment on above: Performed By: #### L IPA, CMP, SYEDA, PREGQNT #### [facility] [address] [place] [address] Dr. Judah Phipps Platelet mean volume (Bld) [Entitic vol] 9.2 fL Critically low 9.5-13.5 [facility] Comment on above: Performed By: #### L IPA, CMP, SYEDA, PREGQNT #### [facility] [address] [address] [address] Judah Phipps PLT 408 103/ul Normal 150-450 [facility] Comment on above: Performed By: #### L IPA, CMP, SYEDA, PREGQNT #### [facility] [address] [address] [address] Judah Phipps RBC 4.10 106/ul Critically low 4.20-5.40 [facility] Comment on above: Performed By: #### L IPA, CMP, SYEDA, PREGQNT #### [facility] [address] [address] [address] Judah Phipps WBC 12.0 103/ul Critically high 4.0-11.0 [facility] Comment on above: Performed By: #### L IPA, CMP, SYEDA, PREGQNT #### [facility] [address] [address] [address] Judah Phipps LIPASEon 11-13-2022 Lipase [Catalytic activity/Vol] 161.0 U/L Normal 73.0-393.0 [facility] Comment on above: Performed By: #### L IPA, CMP, SYEDA, PREGQNT #### [facility] [address] [place] [address] Dr. Judah Phipps PREG QUANT HCGon 11-13-2022 HCG QUANT <1 Normal [facility] Comment on above: Performed By: #### L IPA, CMP, SYEDA, PREGQNT #### [facility] [address] [place] [address] Dr. Judah Phipps HCG RANGE SEE BELOW Normal [facility] Comment on above: Result Comment: 5-50 0.2-1 WEEK 50-500 1-2 WEEKS 100-5,000 2-3 WEEKS 500-10,000 3-4 WEEKS 1,000-50,000 4-5 WEEKS 10,000-100,000 5-6 WEEKS 15,000-200,000 6-8 WEEKS 10,000-100,000 2-3 MONTHS Performed By: #### L IPA, CMP, SYEDA, PREGQNT #### [facility] [address] [place] [address] Dr. Judah Phipps PROF 14(COMP METB)on 023 Albumin [Mass/Vol] 3.6 g/dL Normal 3.4-5.0 [facility] Comment on above: Performed By: #### L IPA, CMP, SYEDA, PREGQNT #### [facility] [address] [place] [address] Dr. Judah Phipps Albumin/Globulin [Mass ratio] 1.1 {ratio} Normal [facility] Comment on above: Performed By: #### L IPA, CMP, SYEDA, PREGQNT #### [facility] [address] [place] [address] Dr. Judah Phipps ALP [Catalytic activity/Vol] 64 U/L Normal 46-116 [facility] Comment on above: Performed By: #### L IPA, CMP, SYEDA, PREGQNT #### [facility] [address] [place] [address] Dr. Judah Phipps ALT [Catalytic activity/Vol] 9 U/L Critically low 14-59 [facility] Comment on above: Performed By: #### L IPA, CMP, SYEDA, PREGQNT #### [facility] [address] [address] [address] Judah Phipps Anion gap [Moles/Vol] 11.3 mmol/L Normal [facility] Comment on above: Performed By: #### L IPA, CMP, SYEDA, PREGQNT #### [facility] [address] [address] [address] Judah Phipps AST [Catalytic activity/Vol] 10 U/L Critically low 15-37 [facility] Comment on above: Performed By: #### L IPA, CMP, SYEDA, PREGQNT #### [facility] [address] [address] [address] Judah Phipps Bilirubin [Mass/Vol] 0.2 mg/dL Normal 0.2-1.0 [facility] Comment on above: Performed By: #### L IPA, CMP, SYEDA, PREGQNT #### [facility] [address] [address] [address] Judah Phipps Calcium [Mass/Vol] 8.9 mg/dL Normal 8.5-10.1 [facility] Comment on above: Performed By: #### L IPA, CMP, SYEDA, PREGQNT #### [facility] [address] [address] [address] Judah Phipps Chloride [Moles/Vol] 102 mmol/L Normal 98-107 [facility] Comment on above: Performed By: #### L IPA, CMP, SYEDA, PREGQNT #### [facility] [address] [place] [address] Dr. Judah Phipps CO2 [Moles/Vol] 28.5 mmol/L Normal 21.0-32.0 [facility] Comment on above: Performed By: #### L IPA, CMP, SYEDA, PREGQNT #### [facility] [address] [place] [address] Dr. Judah Phipps Creatinine [Mass/Vol] 0.65 mg/dL Normal 0.55-1.02 [facility] Comment on above: Performed By: #### L IPA, CMP, SYEDA, PREGQNT #### [facility] [address] [address] [address] Judah Phipps EGFR-AF LIBYAN >60 Normal >=60 [facility] Comment on above: Performed By: #### L IPA, CMP, SYEDA, PREGQNT #### [facility] [address] [address] [address] Judah Phipps EGFR-NON AF LIBYAN >60 Normal >=60 [facility] Comment on above: Performed By: #### L IPA, CMP, SYEDA, PREGQNT #### [facility] [address] [address] [address] Judah Phipps Globulin (S) [Mass/Vol] 3.4 g/dL Normal [facility] Comment on above: Performed By: #### L IPA, CMP, SYEDA, PREGQNT #### [facility] [address] [address] [address] Judah Phipps Glucose [Mass/Vol] 100 mg/dL Normal 74-106 [facility] Comment on above: Performed By: #### L IPA, CMP, SYEDA, PREGQNT #### [facility] [address] [address] [address] Judah Phipps Potassium [Moles/Vol] 3.8 mmol/L Normal 3.5-5.1 [facility] Comment on above: Performed By: #### L IPA, CMP, SYEDA, PREGQNT #### [facility] [address] [address] [address] Judah Phipps Protein [Mass/Vol] 7.0 g/dL Normal 6.4-8.[address] [facility] Comment on above: Performed By: #### L IPA, CMP, SYEDA, PREGQNT #### [facility] [address] [address] [address] Judah Phipps Sodium [Moles/Vol] 138 mmol/L Normal 136-145 [facility] Comment on above: Performed By: #### L IPA, CMP, SYEDA, PREGQNT #### [facility] [address] [address] [address] Judah Phipps Urea nitrogen [Mass/Vol] 15.0 mg/dL Normal 7.0-18.0 [facility] Comment on above: Performed By: #### L IPA, CMP, SYEDA, PREGQNT #### [facility] [address] [place] [address] Dr. Judah Phipps Urea nitrogen/Creatinine [Mass ratio] 23.1 mg/mg Normal [facility] Comment on above: Performed By: #### L IPA, CMP, SYEDA, PREGQNT #### [facility] [address] [place] [address] Dr. Judah Phipps RESPIRATORY PANEL PLUSon Adenovirus Not detected Normal NOT DETECTED [facility] Comment on above: Performed By: #### R SPLUS #### [facility] [address] [place] [address] Dr. Judah Dick. Parapertusis Not detected Normal NOT DETECTED [facility] Comment on above: Performed By: #### R SPLUS #### [facility] [address] [place] [address] Dr. Judah Dick. Pertussis Not detected Normal NOT DETECTED [facility] Comment on above: Performed By: #### R SPLUS #### [facility] [address] [place] [address] Dr. Judah Phipps Chlamydia Pneumoniae Not detected Normal NOT DETECTED [facility] Comment on above: Performed By: #### R SPLUS #### [facility] [address] [place] [address] Dr. Judah Phipps Coronavirus 229E Not detected Normal NOT DETECTED [facility] Comment on above: Performed By: #### R SPLUS #### [facility] [address] [place] [address] Dr. Judah Phipps Coronavirus HKU1 Not detected Normal NOT DETECTED [facility] Comment on above: Performed By: #### R SPLUS #### [facility] [address] [place] [address] Dr. Judah Phipps Coronavirus NL63 Not detected Normal NOT DETECTED [facility] Comment on above: Performed By: #### R SPLUS #### [facility] [address] [place] [address] Dr. Judah Phipps Coronavirus OC43 Not detected Normal NOT DETECTED [facility] Comment on above: Performed By: #### R SPLUS #### [facility] [address] [place] [address] Dr. Judah Phipps Influenza A H1 2009 Not detected Normal NOT DETECTED T [facility] Comment on above: Performed By: #### R SPLUS #### [facility] [address] [place] [address] Dr. Judah Phipps Influenza A H3 Not detected Normal NOT DETECTED [facility] Comment on above: Performed By: #### R SPLUS #### [facility] [address] [place] [address] Dr. Judah Phipps Influenza B Not detected Normal NOT DETECTED [facility] Comment on above: Performed By: #### R SPLUS #### [facility] [address] [place] [address] Dr. Judah Phipps Metapneumovirus Not detected Normal NOT DETECTED [facility] Comment on above: Performed By: #### R SPLUS #### [facility] [address] [place] [address] Dr. Judah Phipps Mycoplas. Pneumoniae Not detected Normal NOT DETECTED [facility] Comment on above: Performed By: #### R SPLUS #### [facility] [address] [place] [address] Dr. Judah Phipps Parainfluenza 1 Not detected Normal NOT DETECTED [facility] Comment on above: Performed By: #### R SPLUS #### [facility] [address] [place] [address] Dr. Judah Phipps Parainfluenza 2 Not detected Normal NOT DETECTED [facility] Comment on above: Performed By: #### R SPLUS #### [facility] [address] [place] [address] Dr. Judah Phipps Parainfluenza 3 Not detected Normal NOT DETECTED [facility] Comment on above: Performed By: #### R SPLUS #### [facility] [address] [place] [address] Dr. Judah Phipps Parainfluenza 4 Not detected Normal NOT DETECTED [facility] Comment on above: Performed By: #### R SPLUS #### [facility] [address] [place] [address] Dr. Judah Phipps Rhino/Enterovirus Not detected Normal NOT DETECTED [facility] Comment on above: Performed By: #### R SPLUS #### [facility] [address] [place] [address] Dr. Judah Phipps RP2 Header 1 RESPIRATORY PANEL: VIRUSES Normal [facility] Comment on above: Performed By: #### R SPLUS #### [facility] [address] [place] [address] Dr. Judah Phipps RP2 Header 2 RESPIRATORY PANEL: BACTERIA Normal [facility] Comment on above: Performed By: #### R SPLUS #### [facility] [address] [place] [address] Dr. Judah Phipps RSV Not detected Normal NOT DETECTED [facility] Comment on above: Performed By: #### R SPLUS #### [facility] [address] [place] [address] Dr. Judah Phipps SARS-CoV-2 (COVID-19) RNA HAROLDO+probe Ql (Unsp spec) Not detected Normal NOT DETECTED [facility] Comment on above: Performed By: #### R SPLUS #### [facility] [address] [place] [address] Dr. Judah Prince 10-10-2022 CNOV Office Visit (ADRIANA ) EDITH WELLS ([id number]) 1995 F Date Time Provider Department 10/10/22 [...] Status:Closed by TESSA SANCHEZ on 10/10/22 Normal [facility] Shayy 09-26-2022 CNPN Telephone (ORAVON) EDITH WELLS ([id number]) 1995 F Date Time Provider Department 09/26/22 TESSA SANCHEZ ORAVON During your visit today, we recorded the following information about you: Rita Taveras [facility] 09/26/2022 11:18 AM Signed Patient requesting to speak with provider or staff in regards to right leg pain. She is having pain from her toes up to her knee. Her right ankle surgery was 08/28/22 and questions if pain is normal? Patient is to start therapy today at 6 pm. Patient requesting a return call through #[phone] or #[phone]. The second number is her boyfriends line, Elias. Patient gives okay to leave message with Elias if needed. Please advise. Lizzette Adams RN 09/28/2022 2:23 PM Signed I spoke with Kathie on 09/26/22. Lizzette Adams RN Allergies As of Date: 09/26/2022 (No Known Allergies) Date Reviewed: 09/12/2022 Reviewed by: Lizzette Adams RN - Fully Assessed Reason for Visit: Patient Question [9510] Prescriptions as of 09/28/2022 - predniSONE (DELTASONE) [...] Status:Closed by LIZZETTE ADAMS RN on 09/28/22 [facility] CNOVon 09-12-2022 CNOV Office Visit (ORAVON ) EDITH WELLS ([id number]) 1995 F Date Time Provider Department 09/12/22 [...] right talus [M93.271] Order(s):CONSULT TO PHYSICAL THERAPY [9060] Order #: [id number]: 1 FUTURE Prescriptions as of 09/12/2022 - [...] Encounter Status:Closed by TESSA SANCHEZ on 09/12/22 [facility] CNOV Office Visit (ORAVON ) EDITH WELLS ([id number]) 1995 F Date Time Provider Department 09/12/22 [...] Care of boot.. Alfred Campo Cast Beeper: [id number] Allergies As of Date: 09/12/2022 (No Known [...] Encounter Status:Closed by ALFRED KEARNS on 09/12/22 [facility] Shayy 09-03-2022 CNPN Telephone (ORAVON) EDITH WELLS ([id number]) 1995 F Date Time Provider Department 09/03/22 [...] by AMPARO GUILLORY RN on 09/14/22 Normal [facility] Shayy 09-02-2022 CNPN Telephone (SICU) EDITH WELLS ([id number]) 1995 F Date Time Provider Department 09/02/22 [...] Fully Assessed Reason for Visit: Patient Question [8248] Prescriptions as of 09/02/2022 - acetaminophen (TYLENOL) [...] Encounter Status:Closed by EYAD SHELBY on 09/02/22 [facility] 08-29-2022 BANNERURSE Nurse Visit (ORAVGOLDIE) PRISCILLAEDITH ([id number]) 1995 F Date Time Provider Department 08/29/22 3:45 PM NURSE [facility] KATHRYN ADRIANA During your visit today, we [...] Status:Closed by LIZZETTE ADAMS RN on 09/03/22 [facility] Suresh 08-29-2022 CNOV Office Visit (ADRIANA ) EDITH WELLS ([id number]) 1995 F Date Time Provider Department 08/29/22 3:00 PM CAST TECH AGNES WRIGHT During your visit today, we recorded the following information about you: Alfred Campo Cast 08/29/2022 3:44 PM Signed PT ASSESSMENT - CASTING ROOM Edith presents for Application of cast. Applied short cast: to Right leg non-weight bearing Patient has been instructed in Care of cast.. Alfred Campo Cast Beeper: [phone] Allergies As of Date: 08/29/2022 (No Known [...] Status:Closed by ALFRED KEARNS on 08/29/22 Normal [facility] ANES POSTPROC EVALon 022 ANES POSTPROC EVAL HNO ID: [id number] Author: Mike Alcantar MD Service: Anesthesiology Author Type: Anesthesiologist Type: Anesthesia Postprocedure Evaluation Filed: 08/28/2022 1:05 PM Note Text: POST ANESTHESIA EVALUATION NOTE : 1995 Procedure Summary Date: 08/28/22 Room / Location: [address] Anesthesia Start: 1029 Anesthesia Stop: 1149 [...] August 28, 2022 TIME: 1:04 PM CSN: [id number] [facility] ANES PRE-OPon 08-28-2022 ANES PRE-OP HNO ID: [id number] Author: Mike Alcantar MD Service: Anesthesiology Author Type: Anesthesiologist Type: Anesthesia Preprocedure Evaluation Filed: 08/28/2022 9:33 AM Note Text: ANESTHESIOLOGY DAY OF SURGERY NOTE : 1995 Procedure Information Date/Time: 08/28/22 1000 Procedure: ARTHROSCOPY ANKLE EXCISION 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 Patient / Responsible Constitution Party agrees to proceed: yes Patient / [...] August 28, 2022 TIME: 9:32 AM CSN: [id number] [facility] OPERATIVE NOon 08-28-2022 OPERATIVE NO HNO ID: [id number] Author: Tessa Sanchez MD Service: Orthopaedic Surgery Author Type: Physician Type: Operative Report Filed: 08/28/2022 1:09 PM Note Text: OPERATIVE REPORT LOG ID: [id number] Surgery Date: 08/28/2022 Incision/Procedure Start Time: 11:01 AM Incision Close/Procedure End Time: 11:32 AM Procedure Performed: Procedure(s) (LRB): ARTHROSCOPY ANKLE EXCISION OSTEOCHONDRAL DEFECT MEDIAL TALUS Microfracture of talus Synovectomy Surgeon monitored fluoroscopy Surgeon(s)/Procedurali st(s) and Armed Security Officer(s): Surgeon(s) and Role: * Tessa Sanchez MD - Primary Physician Armed Security Officer: Mercedes Gale PA-C, was essential in patient [...] August 28, 2022 TIME: 1:04 PM PHONE: [phone] Normal [facility] CBC panel Auto (Bld)on 08-24 Erythrocyte distribution width (RBC) [Ratio] 13.3 % Normal 11.5-15.0 [facility] Comment on above: Order Comment: Speci men Type: BLOOD SPECIMENOrdering Facility: [facility] Address: [address] [place] [address] [place] [address] [place] [address] Performed By: #### 5 8410-2 ####[facility] LABCLIA [id number] [place] [address] Hematocrit (Bld) [Volume fraction] 37.6 % Normal 36.0-46.0 [facility] Comment on above: Order Comment: Speci men Type: BLOOD SPECIMENOrdering Facility: [facility] Address: [address] [place] [address] Performed By: #### 5 8410-2 ####[facility] LABCLIA [id number] [place] [address] Hemoglobin (Bld) [Mass/Vol] 12.4 g/dL Normal 11.5-15.5 [facility] Comment on above: Order Comment: Speci men Type: BLOOD SPECIMENOrdering Facility: [facility] Address: [address] [place] [address] Performed By: #### 5 8410-2 ####[facility] LABCLIA [id number] [place] [address] MCH (RBC) [Entitic mass] 30.4 pg Normal 26.0-34.0 [facility] Comment on above: Order Comment: Speci men Type: BLOOD SPECIMENOrdering Facility: [facility] Address: [address] [place] [address] Performed By: #### 5 8410-2 ####[facility] LABCLIA [id number] [place] [address] MCHC (RBC) [Mass/Vol] 33.0 g/dL Normal 30.5-36.0 [facility] Comment on above: Order Comment: Speci men Type: BLOOD SPECIMENOrdering Facility: [facility] Address: [address] [place] [address] Performed By: #### 5 8410-2 ####[facility] LABCLIA [id number] [place] [address] MCV (RBC) [Entitic vol] 92.2 fL Normal 80.0-100.0 [facility] Comment on above: Order Comment: Speci men Type: BLOOD SPECIMENOrdering Facility: [facility] Address: [address] [place] [address] Performed By: #### 5 8410-2 ####[facility] LABCLIA [id number] [place] [address] Nucleated RBC (Bld) [#/Vol] 10*3/uL Normal <0.01 [facility] Comment on above: Order Comment: Speci men Type: BLOOD SPECIMENOrdering Facility: [facility] Address: [address] [place] [address] Performed By: #### 5 8410-2 ####[facility] LABCLIA [id number] [place] [address] Platelet mean volume (Bld) [Entitic vol] 9.3 fL Normal 9.0-12.7 [facility] Comment on above: Order Comment: Speci men Type: BLOOD SPECIMENOrdering Facility: [facility] Address: [address] [place] [address] Performed By: #### 5 8410-2 ####[facility] LABCLIA [id number] [place] [address] Platelets (Bld) [#/Vol] 386 10*3/uL Normal 150-400 [facility] Comment on above: Order Comment: Speci men Type: BLOOD SPECIMENOrdering Facility: [facility] Address: [address] [place] [address] Performed By: #### 5 8410-2 ####[facility] LABIA [id number] [place] [address] RBC (Bld) [#/Vol] 4.08 10*6/uL Normal 3.90-5.20 [facility] Comment on above: Order Comment: Speci men Type: BLOOD SPECIMENOrdering Facility: [facility] Address: [address] [place] [address] Performed By: #### 5 8410-2 ####[facility] LABCLIA [id number] [place] [address] WBC (Bld) [#/Vol] 8.69 10*3/uL Normal 3.70-11.00 [facility] Comment on above: Order Comment: Speci men Type: BLOOD SPECIMENOrdering Facility: [facility] Address: [facility] [place] [address] Performed By: #### 5 8410-2 ####[facility] LABCLIA [id number] [place] [address] Erythrocyte distribution width (RBC) [Ratio] 13.3 % 11.5 - 15.0 % [facility] Hematocrit (Bld) [Volume fraction] 37.6 % 36.0 - 46.0 % [facility] Hemoglobin (Bld) [Mass/Vol] 12.4 g/dL 11.5 - 15.5 g/dL [facility] MCH (RBC) [Entitic mass] 30.4 pg 26.0 - 34.0 pg [facility] MCHC (RBC) [Mass/Vol] 33.0 g/dL 30.5 - 36.0 g/dL [facility] MCV (RBC) [Entitic vol] 92.2 fL 80.0 - 100.0 fL [facility] Nucleated RBC (Bld) [#/Vol] <0.01 k/uL [facility] Platelet mean volume (Bld) [Entitic vol] 9.3 fL 9.0 - 12.7 fL [facility] Platelets (Bld) [#/Vol] 386 10*3/uL 150 - 400 k/uL [facility] RBC (Bld) [#/Vol] 4.08 10*6/uL 3.90 - 5.2 0 m/uL [facility] WBC (Bld) [#/Vol] 8.69 10*3/uL 3.70 - 11. 00 k/uL [facility] Basic metabolic 2000 panelon 08-15-2022 Anion gap [Moles/Vol] 8 mmol/L Low 9-18 [facility] Comment on above: Order Comment: Speci men Type: BLOOD SPECIMENOrdering Facility: [facility] Address: [address] [place] [address] Performed By: #### 2 4321-2 ####[facility] LABCLIA [id number] [place] [address] Calcium [Mass/Vol] 9.4 mg/dL Normal 8.5-10.2 [facility] Comment on above: Order Comment: Speci men Type: BLOOD SPECIMENOrdering Facility: [facility] Address: [address] [place] [address] Performed By: #### 2 4321-2 ####[facility] LABCLIA [id number] [place] [address] Chloride [Moles/Vol] 104 mmol/L Normal 97-105 [facility] Comment on above: Order Comment: Speci men Type: BLOOD SPECIMENOrdering Facility: [facility] Address: [address] [place] [address] Performed By: #### 2 4321-2 ####[facility] LABCLIA [id number] [place] [address] CO2 [Moles/Vol] 25 mmol/L Normal 22-30 [facility] Comment on above: Order Comment: Speci men Type: BLOOD SPECIMENOrdering Facility: [facility] Address: [address] [place] [address] Performed By: #### 2 4321-2 ####[facility] LABCLIA [id number] [place] [address] Creatinine [Mass/Vol] 0.60 mg/dL Normal 0.58-0.96 [facility] Comment on above: Order Comment: Speci men Type: BLOOD SPECIMENOrdering Facility: [facility] Address: [address] [place] [address] Performed By: #### 2 4321-2 ####[facility] LABCLIA [id number] [place] [address] ESTIMATED GLOMERULAR FILTRATION RATE 126 mL/min/1.73m??? Normal >=60 [facility] Comment on above: Order Comment: Getachew hamilton Type: BLOOD SPECIMENOrdering Facility: [facility] Address: [address] [place] [address] Result Comment: Brandy mated Glomerular Filtration Rate [...] actual GFR. Performed By: #### 2 4321-2 ####[facility] LABCLIA [id number] [place] [address] Glucose [Mass/Vol] 109 mg/dL High 74-99 [facility] Comment on above: Order Comment: Getachew hamilton Type: BLOOD SPECIMENOrdering Facility: [facility] Address: [address] [place] [address] Result Comment: The [place] Diabetes Association (ADA) provides guidance for cutoff [...] Standards of Medical Care in Diabetes 2016, [employer] Diabetes Association. Diabetes Care. 2016.39(Suppl 1). Performed By: #### 2 4321-2 ####[facility] LABCLIA [id number] [place] [address] Potassium [Moles/Vol] 3.8 mmol/L Normal 3.7-5.1 [facility] Comment on above: Order Comment: Speci men Type: BLOOD SPECIMENOrdering Facility: [facility] Address: [address] [place] [address] Performed By: #### 2 4321-2 ####[facility] LABCLIA [id number] [place] [address] Sodium [Moles/Vol] 137 mmol/L Normal 136-144 [facility] Comment on above: Order Comment: Speci men Type: BLOOD SPECIMENOrdering Facility: [facility] Address: [address] [place] [address] Performed By: #### 2 4321-2 ####[facility] LABCLIA [id number] [place] [address] Urea nitrogen [Mass/Vol] 20 mg/dL Normal 7-21 [facility] Comment on above: Order Comment: Speci men Type: BLOOD SPECIMENOrdering Facility: [facility] Address: [address] [place] [address] Performed By: #### 2 4321-2 ####[facility] LABCLIA [id number] [place] [address] CBC panel Auto (Bld)on 08-15 Erythrocyte distribution width (RBC) [Ratio] 13.5 % Normal 11.5-15.0 [facility] Comment on above: Order Comment: Speci men Type: BLOOD SPECIMENOrdering Facility: [facility] Address: [address] [place] [address] Performed By: #### 5 8410-2 ####[facility] LABCLIA [id number] [place] [address] Hematocrit (Bld) [Volume fraction] 39.9 % Normal 36.0-46.0 [facility] Comment on above: Order Comment: Speci men Type: BLOOD SPECIMENOrdering Facility: [facility] Address: [address] [place] [address] Performed By: #### 5 8410-2 ####[facility] LABCLIA [id number] [place] [address] Hemoglobin (Bld) [Mass/Vol] 13.4 g/dL Normal 11.5-15.5 [facility] Comment on above: Order Comment: Speci men Type: BLOOD SPECIMENOrdering Facility: [facility] Address: [address] [place] [address] Performed By: #### 5 8410-2 ####[facility] LABCLIA [id number] [place] [address] MCH (RBC) [Entitic mass] 30.7 pg Normal 26.0-34.0 [facility] Comment on above: Order Comment: Speci men Type: BLOOD SPECIMENOrdering Facility: [facility] Address: [address] [place] [address] Performed By: #### 5 8410-2 ####[facility] LABCLIA [id number] [place] [address] MCHC (RBC) [Mass/Vol] 33.6 g/dL Normal 30.5-36.0 [facility] Comment on above: Order Comment: Speci men Type: BLOOD SPECIMENOrdering Facility: [facility] Address: [address] [place] [address] Performed By: #### 5 8410-2 ####[facility] LABCLIA [id number] [place] [address] MCV (RBC) [Entitic vol] 91.5 fL Normal 80.0-100.0 [facility] Comment on above: Order Comment: Speci men Type: BLOOD SPECIMENOrdering Facility: [facility] Address: [address] [place] [address] Performed By: #### 5 8410-2 ####[facility] LABCLIA [id number] [place] [address] Nucleated RBC (Bld) [#/Vol] 10*3/uL Normal <0.01 [facility] Comment on above: Order Comment: Speci men Type: BLOOD SPECIMENOrdering Facility: [facility] Address: [address] [place], [place] [address] Performed By: #### 5 8410-2 ####[facility] LABCLIA [id number] [place] [address] Platelet mean volume (Bld) [Entitic vol] 9.2 fL Normal 9.0-12.7 [facility] Comment on above: Order Comment: Speci men Type: BLOOD SPECIMENOrdering Facility: [facility] Address: [address] [place], [place] [address] Performed By: #### 5 8410-2 ####[facility] LABCLIA [id number] [place] [address] Platelets (Bld) [#/Vol] 409 10*3/uL High 150-400 [facility] Comment on above: Order Comment: Speci men Type: BLOOD SPECIMENOrdering Facility: [facility] Address: [address] [place] [address] Performed By: #### 5 8410-2 ####[facility] LABCLIA [id number] [place] [address] RBC (Bld) [#/Vol] 4.36 10*6/uL Normal 3.90-5.20 [facility] Comment on above: Order Comment: Speci men Type: BLOOD SPECIMENOrdering Facility: [facility] Address: [address] [place], [place] [address] Performed By: #### 5 8410-2 ####[facility] LABIA [id number] [place] [address] WBC (Bld) [#/Vol] 16.45 10*3/uL High 3.70-11.00 [facility] Comment on above: Order Comment: Speci men Type: BLOOD SPECIMENOrdering Facility: [facility] Address: [address] [place], [place] [address] Performed By: #### 5 8410-2 ####[facility] [id number] [place] [address] Shayy 08-15-2022 CNPN Telephone (BRENT) EDITH WELLS ([id number]) 1995 F Date Time Provider Department 08/15/22 [...] unspecified type [D72.829] Order(s):CBC [SQCBC] Order #: [id number] FUTURE Prescriptions as of 08/24/2022 - predniSONE [...] Encounter Status:Closed by KASI MATHUR on 08/24/22 [facility] HISTORY PHYSICALon HISTORY PHYSICAL HNO ID: [id number] Author: Kasi Mathur PA-C Service: ? Author Type: Physician Armed Security Officer Type: HANDP Filed: 08/24/2022 1:26 PM Note [...] Ptsd (Post-Traumatic Stress Disorder) Bmi 40.0-44.9, Adult ([facility]) History of Palpitations Former Smoker History of Syncope Difficult Intravenous Access Anemia PAST MEDICAL HISTORY Diagnosis Date Back pain BMI 40.0-44.9, adult ([facility]) Former smoker PVC's (premature ventricular contractions) PAST [...] fevers. Neuro: No history of TIA's, stroke, TRAUMA COUNSELLOR tumor, impaired sensorium, hemiplegia, paraplegia or quadraplegia. 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 Normal [facility] CNCOon 2022 CNCO Letter Text Normal [facility] CNOVon 2022 CNOV Office Visit (ORAVON ) EDITH WELLS ([id number]) 1995 F Date Time Provider Department 08/08/22 [...] patient's pertinent medical history from [facility] has been reviewed. PFOMIS [...] anticipated outc (more content not included)... Normal [facility] XR LSPINE 2_3 VIEWSon 2021 XR [...] CHARBEL TAPIA Date: 2022-08-01 20:44 Normal [facility] Covid-19 PCR ([facility])on SARS-CoV-2 (COVID-19) RNA HAROLDO+probe Ql (Unsp spec) Not detected Normal NOT DETECTED [facility] Comment on above: Result Comment: When [...] for this test is supported by the [place] of Health and Human Service's declaration that [...] #### L IPA, CMP, SYEDA, PREGQNT #### [facility] [address] [place], [place] [address] Dr. Judah Phipps GROUP A STREP CULTUREon S. pyogenes Ag Ql (Unsp spec) Culture Observations: NEGATIVE FOR GROUP A STREPTOCOCCUS. Normal [facility] Comment on above: Performed By: #### G RASTCX, SSCRN #### [facility] [address] [place], [place] [address] Dr. Judah Phipps STREPT SCREENon 06-28-2022 STREP SCREEN A Negative Normal NEGATIVE [facility] Comment on above: Performed By: #### G RASTCX, SSCRN #### [facility] [address] [place], [place] [address] Dr. Judah Phipps XR Ankle Complete Righton [...] by Kristi Olguin on 05/07/2022 1503 Normal [facility] XR Spine Lumbar 4+ Views*on 05-07-2022 [...] Kristi Olguin on 05/07/2022 1453 Normal [facility] Automotive Instructor Vital Signs Date Time Vital Sign Value Performing Clinician Facility 07-09-2024 09:58-0400 Body height 162.56 cm DO Charbel Rodriguez Work Phone: [facility] 07-09-2024 09:58-0400 Body temperature 97.5 [degF] DO Charbel Rodriguez Work Phone: [facility] 07-09-2024 09:58-0400 Diastolic blood pressure 82 mm[Hg] DO Charbel Rodriguez Work Phone: [facility] 07-09-2024 09:58-0400 Heart rate 66 /min DO Charbel Rodriguez Work Phone: [facility] 07-09-2024 09:58-0400 SaO2% (BldA) [Mass fraction] 97 % DO Charbel Rodriguez Work Phone: [facility] 07-09-2024 09:58-0400 Systolic blood pressure 124 mm[Hg] DO Charbel Rodriguez Work Phone: [facility] 05-08-2023 09:30-0400 Body height 163.19 cm Charbel Rodriguez Other [facility] Other 05-08-2023 09:30-0400 Body mass index (BMI) [Ratio] 46.15 kg/m2 Charbel Rodriguez Other [facility] Other 05-08-2023 09:30-0400 Body temperature 98.3 [degF] Charbel Rodriguez Other [facility] Other 05-08-2023 09:30-0400 Body weight 122.93 kg Charbel Rodriguez Other [facility] Other 05-08-2023 09:30-0400 Diastolic blood pressure 84 mm[Hg] Charbel Rodriguez Other [facility] Other 05-08-2023 09:30-0400 Respiratory rate 18 /min Charbel Rodriguez Other [facility] Other 05-08-2023 09:30-0400 SaO2% (BldA) [Mass fraction] 98 % Charbel Rodriguez Other [facility] Other 05-08-2023 09:30-0400 Systolic blood pressure 130 mm[Hg] Charbel Rodriguez Other [facility] Other 04-12-2023 10:50-0400 Body height 163.19 cm Charbel Rodriguez Other [facility] Other 04-12-2023 10:50-0400 Body mass index (BMI) [Ratio] 45.47 kg/m2 Charbel Rodriguez Other [facility] Other 04-12-2023 10:50-0400 Body temperature 98.8 [degF] Charbel Rodriguez Other [facility] Other 04-12-2023 10:50-0400 Body weight 121.11 kg Charbel Alicerosey Other [facility] Other 04-12-2023 10:50-0400 Diastolic blood pressure 84 mm[Hg] Charbel Rodriguez Other [facility] Other 04-12-2023 10:50-0400 Respiratory rate 20 /min Charbel Rodriguez Other [facility] Other 04-12-2023 10:50-0400 SaO2% (BldA) [Mass fraction] 98 % Charbel Rodriguez Other [facility] Other 04-12-2023 10:50-0400 Systolic blood pressure 138 mm[Hg] Charbel Rodriguez Other [facility] Other 12-07-2022 11:20-0500 Body height 163.19 cm Ronda Guevara Other [facility] Other 12-07-2022 11:20-0500 Body mass index (BMI) [Ratio] 42.57 kg/m2 Ronda Guevara Other [facility] Other 12-07-2022 11:20-0500 Body temperature 97.2 [degF] Ronda Guevara Other [facility] Other 12-07-2022 11:20-0500 Body weight 113.4 kg Ronda Guevara Other [facility] Other 12-07-2022 11:20-0500 SaO2% (BldA) [Mass fraction] 98 % Ronda Guevara Other [facility] Other 08-14-2022 11:13-0400 Body height 165.1 cm [facility] 08-14-2022 11:13-0400 Body weight 120.66 kg [facility] 08-14-2022 11:13-0400 Heart rate 60 /min [facility] 08-13-2022 15:40-0400 Body height 163.19 cm Charbel Rodriguez Other [facility] Other 08-13-2022 15:40-0400 Body mass index (BMI) [Ratio] 45.64 kg/m2 Charbel Rodriguez Other [facility] Other 08-13-2022 15:40-0400 Body temperature 97.7 [degF] Charbel Rodriguez Other [facility] Other 08-13-2022 15:40-0400 Body weight 121.56 kg Charbel Rodriguez Other [facility] Other 08-13-2022 15:40-0400 Diastolic blood pressure 82 mm[Hg] Charbel Rodriguez Other [facility] Other 08-13-2022 15:40-0400 Respiratory rate 18 /min Charbel Rodriguez Other [facility] Other 08-13-2022 15:40-0400 SaO2% (BldA) [Mass fraction] 98 % Charbel Rodriguez Other [facility] Other 08-13-2022 15:40-0400 Systolic blood pressure 132 mm[Hg] Charbel Rodriguez Other [facility] Other 07-07-2022 18:14-0400 Body temperature 98.4 [degF] DO Charbel Rodriguez Work Phone: [facility] 07-07-2022 18:14-0400 Diastolic blood pressure 80 mm[Hg] DO Charbel Rodriguez Work Phone: [facility] 07-07-2022 18:14-0400 Heart rate 65 /min DO Charbel Rodriguez Work Phone: [facility] 07-07-2022 18:14-0400 Respiratory rate 20 /min DO Charbel Rodriguez Work Phone: [facility] 07-07-2022 18:14-0400 SaO2% (BldA) [Mass fraction] 99 % DO Charbel Rodriguez Work Phone: [facility] 07-07-2022 18:14-0400 Systolic blood pressure 147 mm[Hg] DO Charbel Rodriguez Work Phone: [facility] 07-07-2022 18:05-0400 Body height 165.1 cm DO Charbel Rodriguez Work Phone: [facility] 07-07-2022 18:05-0400 Body weight 113.39 kg DO Charbel Rodriguez Work Phone: [facility] Encounters Encounter Date Encounter Type Care Provider Facility Start: 07-09-2024 End: 07-09-2024 ambulatory DO Charbel Rodriguez Work Phone: [facility] Work Phone: Start: 07-09-2024 End: 07-09-2024 Patient encounter procedure DO Charbel Rodriguez Work Phone: [facility] Work Phone: Start: 06-24-2024 Non-patient / Non-visit DO Keegan id Girrosey Work Phone: [facility] Work Phone: Start: 05-28-2024 Non-patient / Non-visit DO Keegan id Girrosey Work Phone: [facility] Work Phone: Start: 05-25-2024 End: 05-25-2024 ambulatory SYEDA ELMER Not Available Start: 04-28-2024 End: 04-28-2024 ambulatory RYAN MICHAEL Not Available Start: 04-25-2024 Non-patient / Non-visit DO Keegan id Girrosey Work Phone: [facility] Work Phone: Start: 04-20-2024 End: 04-20-2024 ambulatory RYAN MICHAEL Not Available Start: 04-14-2024 Non-patient / Non-visit DO Keegan id Girvin Work Phone: [facility] Work Phone: Start: 04-13-2024 End: 04-13-2024 ambulatory DO Charbel Rodriguez Work Phone: [facility] Work Phone: Start: 04-13-2024 End: 04-13-2024 Departed Referred DO Charbel Rodriguez Work Phone: [facility] [place] [facility] Start: 04-13-2024 Non-patient / Non-visit DO Keegan id Michael Work Phone: [facility] Work Phone: Start: 04-07-2024 End: 04-07-2024 ambulatory RYAN MICHEAL Not Available Start: 03-31-2024 Non-patient / Non-visit DO Keegan id Michael Work Phone: [facility] Work Phone: Start: 03-31-2024 End: 03-31-2024 ambulatory RYAN MICHAEL Not Available Start: 03-16-2024 Non-patient / Non-visit DO Keegan id Michael Work Phone: [facility] Work Phone: Start: 03-16-2024 End: 03-16-2024 ambulatory RYAN MICHAEL Not Available Start: 03-11-2024 Non-patient / Non-visit DO Keegan id Michael Work Phone: [facility] Work Phone: Start: [...] 09-13-2023 End: 09-13-2023 ambulatory Charbel Michael Other [facility] Other Start: 09-13-2023 Telephone encounter Charbel Rodriguez [facility] [place] Start: 09-10-2023 End: 09-10-2023 ambulatory SONIA Jerez VISCI Not Available Start: 06-24-2023 End: 06-24-2023 ambulatory Charbel Rodriguez Other [facility] Other Start: 06-24-2023 Telephone encounter Charbel Rodriguez [facility] [place] Start: 06-03-2023 End: 06-03-2023 ambulatory Charbel Rodriguez Other [facility] Other Start: 06-03-2023 Telephone encounter Charbel Rodriguez [facility] [place] Start: 05-27-2023 End: 05-27-2023 ambulatory Charbel Rodriguez Other [facility] Other Start: 05-27-2023 Telephone encounter Charbel Rodriguez [facility] [place] Start: 05-08-2023 End: 05-08-2023 ambulatory Charbel Rodriguez Other [facility] Other Start: 05-08-2023 Office outpatient vi sit 15 minutes Charbel Rodriguez [facility] [place] Start: 04-26-2023 End: 04-26-2023 ambulatory Charbel Rodriguez Other [facility] Other Start: 04-26-2023 Telephone encounter Charbel Rodriguez [facility] [place] Start: 04-19-2023 End: 04-19-2023 ambulatory Charbel Rodriguez Other [facility] Other Start: 04-19-2023 Telephone encounter Charbel Rodriguez [facility] Start: 04-17-2023 End: 04-17-2023 ambulatory CHARBEL ARROYO ALICEROSEY Facility:[facility] Start: 04-17-2023 End: 04-17-2023 Patient encounter procedure Tessa Sanchez MD Work Phone: Orthopaedics Comment on above: 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) Start: 04-12-2023 End: 04-12-2023 ambulatory Charbel Rodriguez Other [facility] Other Start: 04-12-2023 Office outpatient vi sit 15 minutes Charbel Rodriguez [facility] Start: 03-13-2023 End: 03-13-2023 ambulatory CHARBEL DINA ALICEROSEY Facility:[facility] Start: 02-28-2023 Telephone encounter Tessa bates MD Work Phone: Orthopaedics Comment on above: Electronic Communica tion (PT order faxed today) Start: 01-10-2023 Telephone encounter Tessa bates MD Work Phone: Orthopaedics Comment on above: Return To Work Lette r Start: 01-02-2023 End: 01-02-2023 ambulatory CHARBEL CAMARILLOROSEY Facility:[facility] Start: 01-02-2023 End: 01-02-2023 Subsequent hospital visit by physician Mike [facility] Work Phone: Radiology Comment on [...] 12-07-2022 End: 12-07-2022 ambulatory Ronda Bettencourtler Other [facility] [employer] [employer] Other Start: 12-07-2022 Office outpatient vi sit 25 minutes Ronda Guevara [facility] Start: 12-07-2022 Telephone encounter Charbel Rodriguez [facility] Start: 11-19-2022 End: 11-19-2022 ambulatory Charbel Rodriguez Other [facility] Other Start: 11-19-2022 Telephone encounter Charbel Rodriguez [facility] Start: 11-14-2022 End: 11-14-2022 Patient encounter procedure Tessa Sanchez MD Work Phone: Orthopaedics Comment on above: 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) Start: 11-14-2022 End: 11-14-2022 Subsequent hospital visit by physician Xr [facility] Work Phone: Radiology Comment on above: Osteochondritis diss ecans of right talus [M93.271] Start: 11-14-2022 End: 11-14-2022 ambulatory CHARBEL RODRIGUEZ [facility] Other Start: 11-14-2022 Telephone encounter Charbel Rodriguez [facility] Start: 11-13-2022 End: 11-14-[address] CHARBEL RODRGIUEZ Facility: Start: 11-12-2022 End: 11-12-2022 ambulatory Charbel Rodriguez Other [facility] Other Start: 11-12-2022 Telephone encounter Charbel Rodriguez [facility] Start: 10-31-2022 Orders Only Tessa Vasquez Work Phone: Orthopaedics Comment on above: 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) Start: 10-10-2022 End: 10-10-2022 ambulatory CHARBEL RODRIGUEZ Facility:[facility] Start: 10-10-2022 End: 10-10-2022 Patient encounter procedure Tessa Sanchez MD Work Phone: Orthopaedics Comment on above: 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) Start: 09-26-2022 Telephone encounter Tessa bates MD Work Phone: Orthopaedics Comment on above: Patient Question Start: 09-12-2022 End: 09-12-2022 ambulatory CHARBEL RODRIGUEZ Facility:[facility] Start: 09-12-2022 End: 09-12-2022 Patient encounter procedure [employer] Work Phone: Orthopaedics Comment on above: 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) Start: 09-05-2022 End: 09-05-2022 ambulatory Charbel Rodriguez Other [facility] Other Start: 09-05-2022 Telephone encounter Charbel Rodriguez [facility] [facility] [place] Start: 09-03-2022 End: 09-03-2022 ambulatory Charbel Rodriguez Other [facility] Other Start: 09-03-2022 Telephone encounter Charbel Rodriguez [facility] [employer] Comment on above: post op right ankle swelling and pain Start: 09-02-2022 Telephone encounter Eyad marroquin MD Work Phone: Surgical Intensive Care Unit Comment on above: Patient Question Start: 08-29-2022 End: 08-29-2022 Patient encounter procedure [employer] Work Phone: Orthopaedics Comment on above: 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) Start: 08-29-2022 End: 08-29-2022 ambulatory CHARBEL ARROYO [employer] [facility] [email or web address] Other Start: 08-29-2022 Telephone encounter Charbel Rodriguez [facility] [place] Start: 08-28-2022 End: 08-28-2022 ambulatory TESSA SANCHEZ Facility:[facility] Start: 08-27-2022 Refill Tessa Vasquez Work Phone: Orthopaedics Comment on above: Refill Request Start: 08-24-2022 End: 08-24-2022 ambulatory CHARBEL RODRIGUEZ Facility:[facility] Start: 08-16-2022 End: 08-16-2022 ambulatory Charbel Rodriguez Other [facility] [employer] Other Start: 08-16-2022 Telephone encounter Charbel Rodriguez [facility] Start: 08-15-2022 Telephone encounter Tessa bates MD Work Phone: Pre Anesthesia Comment on above: Results; Preparation s For Surgery Start: 08-15-2022 End: 08-15-2022 ambulatory CHARBEL RODRIGUEZ Facility:[facility] Start: 08-14-2022 Encounter for other preprocedural examination CHARBEL RODRIGUEZ [facility] Start: 08-14-2022 End: 08-14-2022 Admission to establishment [facility] Start: 08-14-2022 End: 08-14-2022 ambulatory TESSA SANCHEZ Pre Anesthesia Comment on above: Preop examination (P rimary Dx); Anemia, unspecified type; Difficult intravenous access; Acute bilateral low back pain without sciatica; History of syncope; History of palpitations; Former smoker; BMI 40.0-44.9, adult ([facility]) Start: 08-14-2022 End: 08-14-2022 Preprocedural examination done [facility] Pre Anesthesia Start: 08-13-2022 End: 08-13-2022 ambulatory Charbel Rodriguez Other [facility] [employer] Other Start: 08-13-2022 Office outpatient vi sit 15 minutes Charbel Rodriguez [facility] Start: 08-13-2022 Telephone encounter Charbel Rodriguez [facility] Start: 2022 End: 2022 ambulatory CHARBEL RODRIGUEZ Facility:[facility] Start: 2022 End: 2022 Patient encounter procedure eTssa Sanchez MD Work Phone: Orthopaedics Comment on above: 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) Start: 08-01-2022 End: 08-01-[address] CHARBEL RODRIGUEZ Facility:[facility] Start: 07-09-2022 End: 07-09-2022 ambulatory Charbel Rodriguez Other [facility] [employer] [employer] Other Start: 07-09-2022 Telephone encounter Charbel Rodriguez [facility] Start: 07-07-2022 End: 07-07-2022 Emergency department patient visit DO Charbel Rodriguez Work Phone: [facility] Start: 06-28-2022 End: 06-28-[address] CHARBEL RODRIGUEZ Facility:[facility] Start: 05-23-2022 End: 05-23-2022 ambulatory Charbel Rodriguez Other [facility] [employer] Other Start: 05-23-2022 Telephone encounter Charbel Rodriguez [facility] Start: 01-06-[address] CHARBEL RODRIGUEZ [...] DTaP,Tdap,Td Vaccine (7 - Td or Tdap) [facility] Start: 06-28-2023 Influenza vaccination C [facility] Start: 08-14-2022 End: 10-14-2022 Basic [...] right ankle XR ankle RT min 3V* [facility] Start: 07-07-2022 XR Ankle - right GE [address] [facility] Work Phone: Start: 06-28-2022 Influenza vaccination INFLUENZA (#1) [facility] Start: 10-28-2021 DEPRESSION ASSESSMENT DEPRESSION ASS ESSMENT [facility] Start: 2015 PAP TESTING PAP TESTING [facility] Start: 2013 Urine microalbumin profile DTAP,TDAP,TD (1 - Tdap) [facility] Start: 2012 HEPATITIS C SCREENING HEPATITIS C SC REENING [facility] Start: 2012 HIV SCREENING HIV SCREENING [facility] Start: 2000 PNEUMOCOCCAL (1 - PCV) PNEUMOCOCCAL (1 - PCV) [facility] Start: 02-06-1995 COVID-19 VACCINE (#1) COVID-19 VACCI NE (#1) [facility] Start: 1994 HEPATITIS B (1 of 3 - 3-dose series) HEPATITIS B (1 of 3 - 3-dose series) [facility] Patient Education Ankle Sprain ED [facility] Work Phone: Patient referral [facility] Work Phone: End: 11-30-2023 XR ANKLE GENERAL 3V AP/LAT/OBL RIGHT XR ANKLE GENERAL 3V AP/LAT/OBL RIGHT Radiology Routine Osteochondritis dissecans of right talus 1 Occurrences starting 11/02/2022 until 11/30/2023 [facility] Work Phone: Comment on above: 1 Occurrences starti ng 11/02/2022 until 11/30/2023 [facility] c [facility] Immunizations Immunization Date Immunization Notes Care Provider Fa snow 11-29-2021 tetanus toxoid, reduced diphtheria toxoid, and acellular pertussis vaccine, adsorbed DO Charbel Rodriguez Work Phone: [facility] NEGATED: Highlighted row has not occurred!08-07-2019 influenza, seasonal, injectable Patient Objection Charbel Rodriguez Other [facility] Other Payers Date Payer Category Payer Self-pay [id number] 2022 Medicaid [id number] 2. [id number] 2021 Medicaid [id number] 5 2018 Unknown [id number]. [id number] 5 1994 Unknown [id number] 2.16.84 0.1.799178.3.579.2.593 1994 Unknown [id number] 2.16.84 0.1.761926.3.579.2.593 1994 Unknown [id number] 2.16.84 0.1.759456.3.579.2.593 1994 Unknown [id number] 2.16.84 0.1.722660.3.579.2.593 1994 Unknown [id number] 2.16.84 0.1.575471.3.579.2.1259 1994 Unknown [id number] 2.16.84 0.1.471919.3.579.2.1259 1994 Unknown [id number] 2.16.84 0.1.571464.3.579.2.1259 1994 Unknown [id number] 2.16.84 0.1.955690.3.579.2.1259 1994 Unknown [id number] 2.16.84 0.1.787991.3.579.2.1259 1994 Unknown [id number] 2.16.84 0.1.178041.3.579.2.1259 1994 Unknown [id number] 2.16.84 0.1.941388.3.579.2.1259 1994 Unknown [id number] 2.16.84 0.1.464224.3.579.2.1259 1994 Unknown [id number] 2.16.84 0.1.022042.3.579.2.1259 1994 Unknown [id number] 2.16.84 0.1.752851.3.579.2.1259 1994 Unknown [id number] 2.16.84 0.1.322072.3.579.2.1259 1994 Unknown [id number] 2.16.84 0.1.900603.3.579.2.1259 1994 Unknown [id number] 2.16.84 0.1.154036.3.579.2.1259 1994 Unknown [id number] 2.16.84 0.1.405580.3.579.2.1259 1994 Unknown [id number] 2.16.84 0.1.008829.3.579.2.1259 1994 Unknown [id number] 2.16.840 .1.395619.3.579.2.1259 1994 Unknown [id number] 2.16.840 .1.749351.3.579.2.1259 1994 Unknown [id number] 2.16.840 .1.756937.3.579.2.9 1994 Unknown [id number] 2.16.840. 1.636417.3.579.2.1259 1959 Medicaid [id number] 1959 Unknown [id number] Medicaid [place] [employer] [id number] 101 [id number] Unknown [id number] 2.16.8 40.1.506232.3.579.2.531 Social History Date Type Detail Facility Start: 07-07-2022 End: 01-13-2024 Tobacco smoking status ARIS Ex-smoker (finding) [facility] Start: 1995 Sex Assigned At Female F [facility] Start: 10-03-2018 Tobacco smoking stat us [facility] Occasional tobacco smoker [facility] Start: 10-03-2018 End: 08-14-2022 Tobacco use and exposure Smokeless tobacco non-user [facility] Start: 01-01-2019 End: 08-14-2022 Alcohol intake Current non-drinker of alcohol (finding) [facility] Start: 1995 Sex Assigned At Not on file C [facility] Start: 08-14-2022 End: 11-10-2022 Sex Assigned At [employer] Other End: 10-28-2019 History of tobacco use Current smoker [facility] Work Phone: End: 10-28-2019 History of tobacco use Cigarette Smoker [facility] Work Phone: Start: 08-14-2022 End: 11-10-2022 Cigarettes smoked current (pack per day) - Reported 0.3 [facility] Start: 08-04-2022 End: 08-28-2022 Exposure to SARS-CoV-2 (event) Not sure [facility] Work Phone: National Score (1-100), lower number is lower risk 86 [facility] Clinical Notes 05-23-2022 to 06-03-2023 Note Date & Type Note Facility 06-03-2023 Evaluation note Encounter Date Diagnosis Assessment Notes May, Depression (ICD-10 - F32.9) [facility] Other [id number] Evaluation note* Encounter Date Diagnosis Assessment Notes [...] her dose should be increased or not. [facility] Other 06-30-2023 Evaluation note* Encounter Date Diagnosis Assessment Notes Treatment Notes Treatment Clinical Notes Mar, Weight gain (ICD-10 - R63.5) [facility] Other 06-21-2023 NoteHNO ID: [id number] Author: Tessa Sanchez MD Service: ? Author [...] records. This note was partially generated using [employer] voice recognition system, and there may be some incorrect words, spellings, and punctuation that were not noted in checking the note before saving. Tessa Sanchez M.D.[facility]06-21-2023 History of Present illness Narrative* Tessa [...] and is of normal mood and affect. [facility] 07/02/2022 Gait Cycle: Normal Yes, Limp: [...] records. This note was partially generated using [employer] voice recognition system, and there may be some incorrect words, spellings, and punctuation that were not noted in checking the note before saving. Tessa Sanchez M.D. documented in this encounterBarnesville Hospital06-16-2023 Evaluation note* Encounter Date Diagnosis Assessment [...] can take a multivitamin daily ([place] Complete) [facility] Other 05-17-2023 NoteHNO ID: [id number] Author: Tessa Sanchez MD Service: ? Author [...] records. This note was partially generated using [employer] voice recognition system, and there may be some incorrect words, spellings, and punctuation that were not noted in checking the note before saving. Tessa Sanchez M.D.[facility]05-05-2023 Miscellaneous Notes* Telephone Encounter - Lizzette Adams RN - 03/01/2023 10:21 AM EDT Faxed today at 10:20am. Lizzette Adams RN * Telephone Encounter - Margy Tidwell - 02/28/2023 4:08 PM EDT Patient wants to get physical therapy at [facility] in [place]. Has been approved by [facility] and she can now schedule. Asking for recent therapy order from Dr Sanchez be faxed to [facility] in [place] at [phone]. documented in this encounterBarnesville Hospital03-17-2023 Miscellaneous Notes* Telephone Encounter - Lizzette [...] calling: self Call patient at: at home [phone] (home) [phone] (cell) Was an appointment scheduled: No Closing statement: Results or non-symptom based questions: Thank you for calling [facility], your call will be returned within [...] back to the office to update CALL [phone] documented in this encounterBarnesville Hospital03-08-2023 NoteHNO ID: [id number] Author: RT Rubina(R) Service: Radiology Author Type: [...] Cespedes RT RT(R) January 02, 2023 4:10 [facility]03-08-2023 NoteHNO ID: [id number] Author: Tessa Sanchez MD Service: ? Author [...] records. This note was partially generated using [employer] voice recognition system, and there may be [...] Past Histories independently gathered by the clinical technical customer support specialist and the remaining scribed note accurately describes my personal service to the patient. Tessa Sanchez M.D.[facility]03-08-2023 History of Present illness Narrative* Blaise [...] 02, 2023 4:10 PM documented in this encounterBarnesville Hospital03-08-2023 History of Present illness Narrative* Tessa [...] records. This note was partially generated using [employer] voice recognition system, and there may be [...] Past Histories independently gathered by the clinical technical customer support specialist and the remaining scribed note accurately describes my personal service to the patient. Tessa Sanchez M.D. documented in this encounterBarnesville Hospital02-24-2023 Miscellaneous Notes* Telephone Encounter - Vinay Coorna RN - 12/21/2022 5:34 PM EST This RN called and spoke with patient. Letter sent via [employer] she report she received it. 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 She was grateful for the call. Vinay [...] that prevented her form having PT. CALL [phone] * Telephone Encounter - Autumn Clayton - [...] with update Please advise documented in this encounterBarnesville Hospital02-24-2023 Miscellaneous Notes* Telephone Encounter - Vinay [...] office to complete them. documented in this encounterBarnesville Hospital02-10-2023 Evaluation note* Encounter Date Diagnosis Assessment [...] treatment plan. Patient left in stable condition [facility] Other 01-23-2023 Evaluation note* Encounter Date Diagnosis Assessment Notes Treatment Notes Treatment Clinical Notes Oct, Cough (ICD-10 - R05.9) Oct, Sore throat (ICD-10 - J02.9) Oct, Headache (ICD-10 - R51.9) Oct, Congestion of nasal sinus (ICD-10 - R09.81) [facility] Other 01-18-2023 NoteHNO ID: [id number] Author: RT Marquis(Wayne) Service: Radiology Author Type: [...] BY: BETTIE Cho) November 14, 2022 4:05 [facility]01-18-2023 History of Present illness Narrative* Syeda Jennings [...] 14, 2022 4:05 PM documented in this encounterBarnesville Hospital01-18-2023 Evaluation note* Encounter Date Diagnosis Assessment Notes Treatment Notes Treatment Clinical Notes Oct, Leukocytosis (ICD-10 - D72.829) [facility] Other 01-17-2023 NoteHNO ID: [id number] Author: Tessa Sanchez MD Service: ? Author [...] and follow-up in 4 weeks Tessa Sanchez [facility]01-17-2023 History of Present illness Narrative* Tessa [...] weeks Tessa Sanchez MD documented in this encounterBarnesville Hospital01-16-2023 Evaluation note* Encounter Date Diagnosis Assessment [...] and will have this done at the [facility] lab. She can call for results. [...] Oct, Other 2:54 PM - 3:02 PM [facility] Other 12-14-2022 NoteHNO ID: [id number] Author: Tessa Sanchez MD Service: ? Author [...] follow-up in 6 weeks for jeff Sanchez [facility]12-14-2022 History of Present illness Narrative* Tessa [...] cordelleck Tessa Sanchez MD documented in this encounterBarnesville Hospital12-02-2022 Miscellaneous Notes* Telephone Encounter - Lizzette [...] pm. Patient requesting a return call through #[phone] #[phone]. The second number is her boyfriends line, Elias. Patient gives okay to leave me ssage with Elias if needed. Please advise. documented in this encounterBarnesville Hospital11-16-2022 NoteHNO ID: [id number] Author: Tessa Sanchez MD Service: ? Author [...] follow up in 4 weeks. Tessa Sanchez [facility]11-16-2022 NoteHNO ID: [id number] Author: Alfred Campo Cast Service: ? Author Type: ? Type: Progress Notes Filed: 09/12/2022 4:10 PM Note Text: PT ASSESSMENT - CASTING ROOM Edith presents for cast removal. Applied pneumatic aircast walker(HAD PRIOR TO SURGERY) to Right leg non-weight bearing Patient has been instructed in Care of boot.. Alfred Campo Cast Beeper: [id number] Hospital11-16-2022 History of Present illness Narrative* Tessa [...] weeks. Tessa Sanchez MD documented in this encounterBarnesville Hospital11-16-2022 History of Present illness Narrative* Alfred Campo Cast - 09/12/2022 4:04 PM EST PT ASSESSMENT - CASTING ROOM Edith presents for cast removal. Applied pneumatic aircast walker(HAD PRIOR TO SURGERY) to Right leg non-weight bearing Patient has been instructed in Care of boot.. Alfred Campo Cast Beeper: [id number] documented in this encounterBarnesville Hospital11-07-2022 Miscellaneous Notes* Telephone Encounter - Lizzette [...] until 09/12. Please advise. documented in this encounterBarnesville Hospital11-07-2022 NoteHNO ID: [id number] Author: Lizzette Adams RN Service: ? Author [...] was the physician present today. Lizzette Adams RNMiddletown Hospital11-06-2022 Miscellaneous Notes* Telephone Encounter - Eyad [...] MD Orthopaedic Surgery, PGY-3 documented in this encounterBarnesville Hospital11-02-2022 NoteHNO ID: [id number] Author: Alfred Campo Cast Service: ? Author Type: ? Type: Progress Notes Filed: 08/29/2022 3:44 PM Note Text: PT ASSESSMENT - CASTING ROOM Edith presents for Application of cast. Applied short cast: to Right leg non-weight bearing Patient has been instructed in Care of cast.. Alfred Campo Cast Beeper: [id number] Hospital11-02-2022 History of Present illness Narrative* Alfred Campo Cast - 08/29/2022 3:40 PM EDT PT ASSESSMENT - CASTING ROOM Edith presents for Application of cast. Applied short cast: to Right leg non-weight bearing Patient has been instructed in Care of cast.. 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, 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 Reason for block: post-op pain management/at surgeon's [...] August 28, 2022 TIME: 1:00 PM CSN: [id number] NoteHNO ID: [id number] Author: GEORGIE Tinsley Service: Anesthesiology Author Type: Strategic Account Manager Type: Anesthesia Procedure Notes Filed: 08/28/2022 [...] August 28, 2022 TIME: 10:56 AM CSN: [id number] NoteHNO ID: [id number] Author: Mike Alcantar MD Service: Anesthesiology Author Type: Anesthesiologist Type: Anesthesia Procedure Notes Filed: 08/28/2022 9:35 AM Note Text: ANESTHESIOLOGY PROCEDURE NOTE Peripheral Nerve Block General Information Procedure Start Time/Medication Administration: 08/28/2022 9:16 AM Procedure End time: 08/28/2022 9:24 AM Patient location during procedure: pre-op Timeout Performed Pre-procedure: timeout performed (920) Consent Obtained: Yes 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, 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 Please read below carefully for your personalized [...] Procedures: - YOU MUST HAVE A RESPONSIBLE INSURANCE PROCESSING CLERK TAKE YOU HOME. A MOTION PICTURE SET WORKER OR SEWER AND DRAIN TECHNICIAN CANNOT BE MADE A RESPONSIBLE INSURANCE PROCESSING CLERK. - We recommend that a responsible [...] Advance Directive, please fax a copy to [phone] or email to for it to be [...] day. Kasi Mathur PA-C documented in this encounterBarnesville Hospital10-18-2022 History and physical note * Kasi [...] fevers. Neuro: No history of TIA's, stroke, TRAUMA COUNSELLOR tumor, impaired sensorium, hemiplegia, paraplegia or quadraplegia. [...] or incontinence,, stones or chronic kidney disease ADVERTISING OPERATIONS COORDINATOR: Negative for abnormal vaginal bleeding, abnormal vaginal [...] visit: Labs per care everywhere reviewed: 11/29/2021 [facility] CBC Hgb 9.0 (11.8-15.4) Hct 26.5% (34-46.4%) [...] were present. Isolated VEs were frequent (8.2%, 42734), and no VE Couplets or VE Triplets [...] 11:04 AM PAGER/CONTACT #: documented in this encounterBarnesville Hospital10-17-2022 Evaluation note* Encounter Date Diagnosis Assessment [...] she can discuss this treatment with her personal caregiver. She is having surgery on 08-28-22. Guidance [...] with Dr. Sanchez at the [facility] location, she was referred to him by Dr. Cosby. She thinks it is bone that is trying to heal. [facility] Other 10-12-2022 NoteHNO ID: [id number] Author: Tessa Sanchez MD Service: ? Author [...] patient's pertinent medical history from [facility] has been reviewed. PFOMIS [...] the patient, and the (more content not included)...[facility]10[facility] History of Present illness Narrative* Tessa [...] patient's pertinent medical history from [facility] has been reviewed. PFOMIS [...] records. This note was partially generated using [employer] voice recognition system, and there may be [...] Past Histories independently gathered by the clinical technical customer support specialist and the remaining scribed note accurately describes my personal service to the patient. Tessa Sanchez M.D. documented in this encounterBarnesville Hospital07-27-2022 Evaluation note* Encounter Date Diagnosis Assessment [...] right ankle She has seen an senior payroll specialist twice for a right ankle fracture. [...] Apr, Other 9:55 AM - 10:05 AM [facility] Other Evaluation noteNo assessment information available [facility] Work Phone: Evaluation note* Diagnosis Osteochondritis dissecans of right talus- Primary [facility] [place] noteNo InformationNort [employer] Other evaluation note* Diagnosis Preop examination- Primary [...] of right talus documented in this encounter [facility] HospitalEvaluation [facility]* Diagnosis Leukocytosis, unspecified type- Primary Osteochondritis dissecans of right talus 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 [facility] Diagnosis Osteochondritis dissecans of right talus- Primary [facility] Diagnosis Osteochondritis dissecans of right talus- Primary [facility] Diagnosis Osteochondritis dissecans of right talus- Primary [facility] Diagnosis Osteochondritis dissecans of right talus- Primary [facility] Diagnosis Osteochondritis dissecans of right talus- Primary [facility] Diagnosis Osteochondritis dissecans of right talus- Primary documented in this encounter [facility] note* Diagnosis Osteochondritis dissecans of right talus- Primary documented in this encounter [facility] note* Diagnosis Osteochondritis dissecans of right talus documented in this encounter [facility] general Narrative - Reported* Type Description Date Medical History reflux Medical History menstrual irregularity Medical History vertigo Medical History anxiety Medical History ankle fx right Surgical History T & A 2004 Surgical History Mole removal Surgical History C section Surgical History IUD -Reyna 03/31/17 Surgical History 11/28/21 Hospitalization History See Above [facility] Other [facility] general Narrative - Reported* Type Description Date Medical History reflux Medical History menstrual irregularity Medical History vertigo Medical History anxiety Medical History ankle fx right Surgical History T & A 2003 Surgical History Mole removal Surgical History C section Surgical History IUD -Reyna 03/31/17 Surgical History 11/28/21 Surgical History right ankle surgery 08/28/22 Hospitalization History See Above [facility] Other [employer] general Narrative - Reported* Type Description Date Medical History reflux Medical History menstrual irregularity Medical History vertigo Medical History anxiety Medical History ankle fx right Surgical History T & A 2003 Surgical History Mole removal Surgical History C section Surgical History IUD -Reyna 03/31/17 Surgical History 11/28/21 Surgical History right ankle surgery 08/28/22 Surgical History IUD removed 03/06/23 Hospitalization History See Above [facility] Other [facility] for referral (narrative)* Diagnostic Procedure Only (Routine) - Pending Review Specialty Diagnoses / Procedures Referred By Juve duarte Referred To Contact XR IMAGING Diagnoses Osteochondritis dissecans of right talus Procedures XR ANKLE GENERAL 3V AP/LAT/OBL RIGHT RADEX ANKLE COMPLETE MINIMUM 3 [place] [address] [place] [address] Xr Imaging Referral ID Status Reason Start Date Expiration Date Visits Requested Visits Authorized [id number] Pending Review Auto-Generat ed Referral 11/02/2022 11/30/2023 1 1 [facility] - Pending Review Specialty Diagnoses / Procedures Referred By Juve duarte Referred To Contact Physical Therapy Diagnoses Osteochondritis dissecans of right talus Procedures CONSULT TO PHYSICAL THERAPY Tessa Sanchez [place] [id number] [place] [address] Referral ID Status Reason Start Date Expiration Date V isits Requested Visits Authorized [id number] Pending Review 04/17/2023 07/16/2023 1 1 [facility] for referral (narrative)* Diagnostic Procedure Only (Routine) - Closed Specialty Diagnoses / Procedures Referred By Juve duarte Referred To Contact XR IMAGING Diagnoses Osteochondritis dissecans of right talus Procedures XR ANKLE GENERAL 3V AP/LAT/OBL RIGHT RADEX ANKLE COMPLETE MINIMUM 3 [place] Tessa Sanchez [place] [id number] [place] [address] [place] [address] Referral ID Status Reason Start Date Expiration Date V isits Requested Visits Authorized [id number] Closed Auto-Generate d Referral 01/02/2023 01/31/2024 1 1 [facility] for referral (narrative)* Diagnostic Procedure Only (Routine) - Closed Specialty Diagnoses / Procedures Referred By Juve duarte Referred To Contact XR IMAGING Diagnoses Osteochondritis dissecans of right talus Procedures XR ANKLE GENERAL 3V AP/LAT/OBL RIGHT RADEX ANKLE COMPLETE MINIMUM 3 [place] [address] [place] [address] [place] [address] Referral ID Status Reason Start Date Expiration Date V isits Requested Visits Authorized [id number] Closed Auto-Generate d Referral 11/02/2022 11/30/2023 1 1 [facility] Summary Purpose Family History Relationship Condition Age [...] HIGH COMPLEX 45 [place] [address] [place] [address] [facility] [address] [place] [address] Referral ID Status Reason Start Date Expiration Date Visits Requested Visits Authorized [id number] Pending Review Auto-Generat ed Referral 2 09/12/2023 1 1 Additional Source Comments INFORMATION SOURCE (unrecogn ized section and content) DATE CREATED AUTHOR 05/08/2022 [facility] dical Specialist DATE CREATED AUTHOR AUTHOR'S ORGANIZ ATION 08/29/2022 [facility] DATE CREATED AUTHOR AUTHOR'S ORGANIZ ATION 11/15/2022 [facility] DATE CREATED AUTHOR AUTHOR'S ORGANIZ ATION 05/28/2023 [facility] DATE CREATED AUTHOR AUTHOR'S ORGANIZ ATION 04/20/2024 [facility] DATE CREATED AUTHOR AUTHOR'S ORGANIZ ATION 05/26/2024 [facility] dical Specialists EPIC Care Teams (unrecognized sec tion and content) Team Status: Inactive Member Role Status Dates Charbel Rodriguez DO Primary Care Provider Active Constantine Yee PA-C Emergency Provider Active Team Status: Active Member Role Status Dates Charbel Rodriguez DO Primary Care Provider Active Personal Care Attendant Relationship Specialty Start Date End Date Charbel Rodriguez DO [address] [place] [address] PCP - General Family Medicine 07/07/18 Charbel Cosby [address] [place] [address] Referring Orthopedics 07/18/22 Personal Care Attendant Relationship Specialty Start Date End Date Charbel Rodriguez, DO [address] [place] [phone] PCP - [facility] 07/07/18 Charbel Cosby [address] [place] [address] Referring Orthopedics 07/18/22 Personal Care Attendant Relationship Specialty Start Date End Date Charbel Rodriguez, DO [address] [place] [address] PCP - [facility] 07/07/18 Charbel Cosby [address] [place] [address] Referring Orthopedics 07/18/22 Personal Care Attendant Relationship Specialty Start Date End Date Charbel Rodriguez, DO [address] [place] [address] PCP - [facility] Medicine 07/07/18 Charbel Cosby [address] [place] [address] Referring Orthopedics 07/18/22 Personal Care Attendant Relationship Specialty Start Date End Date Charbel Rodriguez, DO [address] [place] [address] PCP - [facility] Medicine 07/07/18 Charbel Cosby [address] [place] [address] Referring Orthopedics 07/18/22 Personal Care Attendant Relationship Specialty Start Date End Date Charbel Rodriguez, DO [address] [place] [address] PCP - [facility] Medicine 07/07/18 Charbel Cosby [address] [place] [address] Referring Orthopedics 07/18/22 Personal Care Attendant Relationship Specialty Start Date End Date Charbel Rodriguez, DO [address] [place] [address] PCP - [facility] 07/07/18 Charbel Cosby [address] [place] [address] Referring Orthopedics 07/18/22 Personal Care Attendant Relationship Specialty Start Date End Date Charbel Rodriguez, DO [address] [place] [address] PCP - [facility] 07/07/18 Charbel Cosby [address] [place] [address] Referring Orthopedics 07/18/22 Personal Care Attendant Relationship Specialty Start Date End Date Charbel Rodriguez, DO [address] [place] [address] PCP - [facility] Medicine 07/07/18 Charbel Cosby [address] [place] [address] Referring Orthopedics 07/18/22 Personal Care Attendant Relationship Specialty Start Date End Date Charbel Rodriguez, DO [address] [place] [address] PCP - [facility] 07/07/18 Charble Cosby [address] [place] [address] Referring Orthopedics 07/18/22 Personal Care Attendant Relationship Specialty Start Date End Date Charbel Rodriguez, DO [address] [place] [address] PCP - [facility] Medicine 07/07/18 Charbel Cosby [address] [place] [address] Referring Orthopedics 07/18/22 Personal Care Attendant Relationship Specialty Start Date End Date Charbel Rodriguez, DO [address] [place] [address] PCP - [facility] Medicine 07/07/18 Charbel Cosby [address] [place] [address] Referring Orthopedics 07/18/22 Personal Care Attendant Relationship Specialty Start Date End Date Charbel Rodriguez, DO [address] [place] [address] PCP - [facility] Medicine 07/07/18 Charbel Cosby [address] [place] [address] Referring Orthopedics 07/18/22 Personal Care Attendant Relationship Specialty Start Date End Date Charbel Rodriguez, DO [address] [place] [address] PCP - [facility] 07/07/18 Charbel Cosby [address] [place] [address] Referring Orthopedics 07/18/22 Personal Care Attendant Relationship Specialty Start Date End Date Charbel Rodriguez DO [address] [place] [address] PCP - General Family Medicine 07/07/18 Charbel Cosby [address] [place] [address] Referring Orthopedics 07/18/22 Personal Care Attendant Relationship Specialty Start Date End Date Charbel Rodriguez DO [address] [place] [address] PCP - General Family Medicine 07/07/18 Charbel Cosby [address] [place] [address] Referring Orthopedics 07/18/22 Team Status: Active Member [...] or prosecute any alcohol or drug abuse patient.[facility] HospitalIn the event this information is protected by the Federal Confidentiality of Alcohol and Drug Abuse Patient Records regulations: The Federal rules restrict any use of the information to criminally investigate or prosecute any alcohol or drug abuse patient.[facility] HospitalIn the event this information is protected by the Federal Confidentiality of Alcohol and Drug Abuse Patient Records regulations: The Federal rules restrict any use of the information to criminally investigate or prosecute any alcohol or drug abuse patient.[facility] HospitalIn the event this information is protected by the Federal Confidentiality of Alcohol and Drug Abuse Patient Records regulations: The Federal rules restrict any use of the information to criminally investigate or prosecute any alcohol or drug abuse patient.[facility] HospitalIn the event this information is protected by the Federal Confidentiality of Alcohol and Drug Abuse Patient Records regulations: The Federal rules restrict any use of the information to criminally investigate or prosecute any alcohol or drug abuse patient.[facility] HospitalIn the event this information is protected by the Federal Confidentiality of Alcohol and Drug Abuse Patient Records regulations: The Federal rules restrict any use of the information to criminally investigate or prosecute any alcohol or drug abuse patient.[facility] HospitalIn the event this information is protected by the Federal Confidentiality of Alcohol and Drug Abuse Patient Records regulations: The Federal rules restrict any use of the information to criminally investigate or prosecute any alcohol or drug abuse patient.[facility] HospitalIn the event this information is protected by the Federal Confidentiality of Alcohol and Drug Abuse Patient Records regulations: The Federal rules restrict any use of the information to criminally investigate or prosecute any alcohol or drug abuse patient.[facility] HospitalIn the event this information is protected by the Federal Confidentiality of Alcohol and Drug Abuse Patient Records regulations: The Federal rules restrict any use of the information to criminally investigate or prosecute any alcohol or drug abuse patient.[facility] HospitalIn the event this information is protected by the Federal Confidentiality of Alcohol and Drug Abuse Patient Records regulations: The Federal rules restrict any use of the information to criminally investigate or prosecute any alcohol or drug abuse patient.[facility] HospitalIn the event this information is protected by the Federal Confidentiality of Alcohol and Drug Abuse Patient Records regulations: The Federal rules restrict any use of the information to criminally investigate or prosecute any alcohol or drug abuse patient.[facility] HospitalIn the event this information is protected by the Federal Confidentiality of Alcohol and Drug Abuse Patient Records regulations: The Federal rules restrict any use of the information to criminally investigate or prosecute any alcohol or drug abuse patient.[facility] HospitalIn the event this information is protected by the Federal Confidentiality of Alcohol and Drug Abuse Patient Records regulations: The Federal rules restrict any use of the information to criminally investigate or prosecute any alcohol or drug abuse patient.[facility] HospitalIn the event this information is protected by the Federal Confidentiality of Alcohol and Drug Abuse Patient Records regulations: The Federal rules restrict any use of the information to criminally investigate or prosecute any alcohol or drug abuse patient.[facility] HospitalIn the event this information is protected by the Federal Confidentiality of Alcohol and Drug Abuse Patient Records regulations: The Federal rules restrict any use of the information to criminally investigate or prosecute any alcohol or drug abuse patient.[facility] HospitalIn the event this information is protected by the Federal Confidentiality of Alcohol and Drug Abuse Patient Records regulations: The Federal rules restrict any use of the information to criminally investigate or prosecute any alcohol or drug abuse patient.[facility] HospitalIn the event this information is protected by the Federal Confidentiality of Alcohol and Drug Abuse Patient Records regulations: The Federal rules restrict any use of the information to criminally investigate or prosecute any alcohol or drug abuse patient.[facility] HospitalIn the event this information is protected by the Federal Confidentiality of Alcohol and Drug Abuse Patient Records regulations: The Federal rules restrict any use of the information to criminally investigate or prosecute any alcohol or drug abuse patient.[facility] HospitalIn the event this information is protected by the Federal Confidentiality of Alcohol and Drug Abuse Patient Records regulations: The Federal rules restrict any use of the information to criminally investigate or prosecute any alcohol or drug abuse patient.[facility] HospitalIn the event this information is protected by the Federal Confidentiality of Alcohol and Drug Abuse Patient Records regulations: The Federal rules restrict any use of the information to criminally investigate or prosecute any alcohol or drug abuse patient.[facility] HospitalIn the event this information is protected by the Federal Confidentiality of Alcohol and Drug Abuse Patient Records regulations: The Federal rules restrict any use of the information to criminally investigate or prosecute any alcohol or drug abuse patient.[facility] Reason for Visit (unrecogniz ed section and content) Reason Comments Radio Gen RMP Specialty Diagnoses / Procedures Referred By Contac t Referred To Contact XR IMAGING Diagnoses Osteochondritis dissecans of right talus Procedures XR ANKLE GENERAL 3V AP/LAT/OBL RIGHT RADEX ANKLE COMPLETE MINIMUM 3 [place] [address] [place] [address] [place] [address] Referral ID Status Reason Start Date Expiration Date V isits Requested Visits Authorized [id number] Closed Auto-Generate d Referral 11/02/2022 11/30/2023 1 [...] Expiration Date V isits Requested Visits Authorized [id number] Closed Auto-Generate d Referral 01/02/2023 01/31/2024 1 [...] BE BASED ON THE PRIMARY CLINICAL RECORDS. [facility]. provides no warranty or guarantee of the accuracy or completeness of information in this document.
[2024-12-11 20:59] LABS: Influenza Virus A Antigen Negative; Influenza Virus B Antigen Negative
[2024-12-11 21:00] LABS: Internal Control Within Normal Limits; SARS-CoV-2 Ag NEGATIVE (NEGATIVE); Strep A Antigen Screen Negative
[2024-12-11 21:16] VITALS: BP 129/74
[2024-12-11] MEDS: ACETAMINOPHEN 500 MG TABLET 1000 MG PO (21:35)
--- NOTE | 2024-12-11 23:12 | ED_ITS ---
HPI HPI - General Adult General Chief complaint: Headache Stated complaint: eyes and throat burning, headache Time Seen by Provider: 12/11/24 20:34 Source: patient Mode of arrival: walk-in Limitations: no limitations Related Data Previous Rx's ?Medication ?Instructions ?Recorded ibuprofen 800 mg tablet 800 mg PO Q8H PRN pain 14 days #40 04/13/24 tabs oxycodone-acetaminophen 5 mg-325 1 tab PO Q6H PRN pain 7 days #28 04/13/24 mg tablet (Percocet) tabs amoxicillin 875 mg-potassium 1 tab PO Q12H #14 tabs 06/30/24 clavulanate 125 mg tablet ondansetron 4 mg disintegrating 4 mg PO Q4H PRN nausea and 11/06/24 tablet vomiting 3 days #6 tabs Allergies Allergy/AdvReac Type Severity Reaction Status Date / Time naproxen (From Aleve) Allergy Severe Verified 04/25/24 20:45 latex Allergy Verified 04/25/24 20:45 Opioid HPI Opioid Management Most Recent Opioid Data: Last Pain Scale 7 04/16/24 13:25 04/16/24 Ur Phencyclidine Scrn Negative (NEGATIVE) 04/13/24 05:20 03/28 05/20 PFSH PFSH Medical History Frequent headaches ?R51.9 - Headache, unspecified (ICD-10) GERD (gastroesophageal reflux disease) ?K21.9 - Gastro-esophageal reflux disease without esophagitis (ICD-10) Seizures ?R56.9 - Unspecified convulsions (ICD-10) Irregular heart beat ?I49.9 - Cardiac arrhythmia, unspecified (ICD-10) PVC (premature ventricular contraction) ?I49.3 - Ventricular premature depolarization (ICD-10) Anemia ?D64.9 - Anemia, unspecified (ICD-10) Depression ?F32.A - Depression, unspecified (ICD-10) Anxiety ?F41.9 - Anxiety disorder, unspecified (ICD-10) Surgical History Hx of section ?Z98.891 - History of uterine scar from previous surgery (ICD-10) Hx of tonsillectomy ?Z90.89 - Acquired absence of other organs (ICD-10) History of ankle surgery ?Z98.890 - Other specified postprocedural states (ICD-10) Family History Grandmother Family history of CHF (congestive heart failure) Family history of diabetes mellitus Atrial fibrillation Grandfather Family history of CHF (congestive heart failure) Family history of hypertension Aunt Family history of myocardial infarction Uncle Family history of stroke Atrial fibrillation Brother Cerebral palsy Social History Within the past year, how often did you have a drink containing alcohol: never Within the past year, how often did you have six or more drinks on one occasion: never Score interpretation: A score less than 3 is consistent with normal alcohol consumption. Smoking status: Former smoker Non-prescribed substance use: denies use Highest level of school completed/degree received: high school graduate Are you now , , , , never or living with a partner: living with partner In a typical week, how many times do you talk on the telephone with family, friends, or neighbors: 3 or more times per week How often do you get together with friends or relatives: 3 or more times per week Little interest or pleasure in doing things: not at all Feeling down, depressed, or hopeless: not at all Do you think of yourself as: straight/heterosexual Gender Identity: female Exam Constitutional Vital Signs, click to edit/add: Last Vital Signs Temp 97.7 F 12/11/24 20:36 Pulse 72 12/11/24 20:36 Resp 14 12/11/24 21:45 BP 129/74 12/11/24 21:16 Pulse Ox 100 12/11/24 20:36 O2 Del Method Room Air 12/11/24 20:36 Course Vital Signs Vital signs: Vital Signs Temperature 97.7 F 12/11/24 20:36 Pulse Rate 72 12/11/24 20:36 Respiratory Rate 18 12/11/24 20:36 Blood Pressure 178/153 H 12/11/24 20:36 Pulse Oximetry 100 12/11/24 20:36 Oxygen Delivery Method Room Air 12/11/24 20:36 Temperature 97.7 F 12/11/24 20:36 Pulse Rate 72 12/11/24 20:36 Respiratory Rate 14 12/11/24 21:45 Blood Pressure 129/74 12/11/24 21:16 Pulse Oximetry 100 12/11/24 20:36 Oxygen Delivery Method Room Air 12/11/24 20:36 Medical Decision Making Lab Data Labs: Lab Results 12/11/24 Range/Units 20:45 Influenza Type A Ag Negative Influenza Type B Ag Negative SARS-CoV-2 Ag (CV2AG) Negative (NEGATIVE) Streptococcus Screen Negative Discharge Plan Discharge Chief Complaint: Headache Clinical Impression: Viral illness Patient Disposition: Home, Self-Care Time of Disposition Decision: 21:28 Condition: Good Mode of Transportation: Private Vehicle Prescriptions / Home Meds: No Action amoxicillin-pot clavulanate 875-125 mg tablet 1 tab PO Q12H Qty: 14 0RF ondansetron 4 mg tablet,disintegrating 4 mg PO Q4H PRN (Reason: nausea and vomiting) 3 Days Qty: 6 0RF ibuprofen 800 mg tablet 800 mg PO Q8H PRN (Reason: pain) 14 Days Qty: 40 0RF oxycodone-acetaminophen [Percocet] 5-325 mg tablet 1 tab PO Q6H PRN (Reason: pain) 7 Days Qty: 28 0RF Print Language: [place] Citizen Instructions: Viral Syndrome (ED) Additional Instructions: Tylenol 1000 mg 3 times a day for pain or fever as needed. Ibuprofen 600 mg up to 3 times a day with food as needed for body aches and fever. Return for worsening symptoms. Referrals: CHARBLE RODRIGUEZ [Primary Care Provider] - 1 week Discharge Date/Time: 12/11/24 21:44
== END 2024-12-11 21:44 | disposition home or self-care (01) ==
PROVIDERS: Emergency Provider Emergency Medicine; PCP Family Medicine
DX: B34.9 Viral infection, unspecified (principal); Z87.891 Personal history of nicotine dependence
CPT/HCPCS: 87070; 87804; 87811; 87880; 99283

== ENCOUNTER 2025-09-15 11:57 | Emergency (ER) | payer OTHER, SELFPAY ==
--- OUTSIDE RECORDS SUMMARY | 2021-12-15 09:00 | XMS_ITS | Continuity of Care Document ---
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 Role Phone Pari Jensen Unavailable Unavaila ble Allergies, Adverse Reactions, Alerts Substance Reaction Status Criticality latex Active No Information Procedures Procedure Date Limited Oral Eval Extract; Erupted Th/exposted Rt 021 Intraoral-periapical 1st Film 1 Intraoral-complete Series (bw) 17 Comp Oral Eval New/estab Patient 2016 Extract; Erupted Th/exposted Rt 017 Limited Oral Eval Intraoral-periapical 1st Film 7 Oral Hygiene Instruction Extract; Erupted Th/exposted Rt 016 Intraoral-periapical 1st Film 6 Limited Oral Eval No Charge Advance Directives Directive Yes / No Effective Date File Name No Information Encounters Encounter Description Practice Location Reason(s) For Visit Diagnoses Date Provider Providers Copied on Encounter [facility], [address] [place] [address], [id number], [place] tel:[phone] [facility] No Information Nguyễn Yañez. [address] [place] [address], [id number], [place]. tel:[phone] [facility], [address], [place], [id number], [place] tel:[phone] Dental Clinic dl (chief complaint) Encounter for screening for dental disorders Nicholas Sanches. [address], [place], [id number], [place]. tel:[phone] [facility], [address], [place], [id number], [place] tel:[phone] Dental Clinic Encounter for screening for dental disorders Chiquita Lee. [address] [place], [place], [id number], [place]. tel:[phone] [facility], [address], [place], [id number], [place] tel:[phone] Dental Clinic ext#1 (chief complaint) Encounter for screening for dental disorder Destin DDS Mitch. [address], [place], [id number], [place]. tel:[phone] [facility], [address], [place], [id number], [place] tel:[phone] Dental Clinic Dental Limited (chief complaint) Encounter for screening for dental disorders [facility] Edreinaldo. [address] [place], [address], [place]. tel:[phone] [facility], [address], [place], [id number], [place] tel:[phone] Dental Clinic EXT (chief complaint) Encounter for screening for dental disorder Destin DDS Mitch. [address], [place], [id number], [place]. tel:[phone] [facility], [address], [place], [id number], [place] tel:[phone] Dental Clinic Encounter for screening for dental disorder [facility] Edward. [address] [place], [address], [place]. tel:[phone] [facility], [address], [place], [id number], [place] tel:[phone] Dental Clinic No Information Pantera German. [address] [place], [address], [place]. tel:[phone] Family History Family Member Type Diagnosis Age At Onset Mother Problem (finding) Alive and well Father Problem (finding) Alive and well Payers Payer name Insurance type Covered democrat ID Authoriza tion(s) No Information Social History Type Description Quantity Date Captured Comments Alcohol Use Details Unknown Caffeine Use Details Unknown Tobacco Use Status No Information Smoking Status No Information Sex Female Sexual Orientation Straight or heterosexual Gender Identity Female Chief Complaint And Reason For Visit No Information Reason For Referral Reason For Referral No Information Plan Of Treatment Date Type Action Status Goal PAP. Due on due Goal Tdap. Due on due Goal Depression screening. Due on due Goal Influenza vaccine. Due on due Goal RLP. Due on due Goal PRAPARE ASSESSMENT. Due on due Goal Tobacco cessation counseling completed Appointment [facility] History Of Present Illness Encounter Date Complaint History Of Prese nt Illness dl dl ext#1 ext#1 Dental Limited Dental Limited EXT EXT Functional Status Date Functional Assessmen t No Information Instructions Date Instruction Additional Infor mation No Information Assessments Type Assessment Date No Information Patient Care Teams Name Effective Dates (start - stop) Status Members No Information
[2025-09-15 12:03] VITALS: BP 174/83; PULSE 65; TEMP 36.6; O2SAT 99; BMI 43.3
--- NOTE | 2025-09-15 12:09 | XR_ITS ---
[facility] [place] [id number] Patient Name: RUSSELL WELLS MRN: [id number] date: 1995 Sex: F Assigned Patient Location: ER Current Patient Location: ED.MAIN Accession/Order Number: [id number] Exam Date: 09/15/2025 12:26 Report Date: 09/15/2025 12:32 At the request of: RAMON BESS MD Procedure: XR chest 1V XR chest 1V 09/15/2025 12:28 PM SIGNS AND SYMPTOMS: ^CP ^Y PROTOCOL: Frontal radiograph of the chest COMPARISON: 11/06/2024 FINDINGS: The trachea is midline. The heart and mediastinal structures are within normal limits. The lung parenchyma is clear. The bony thorax is intact. XR/XR chest 1V IMPRESSION: No acute cardiopulmonary pathology. Impression dictated by: Keaton Brooks M.D. 09/15/2025 12:32 PM Dictation Location: [place] [address] Electronically authenticated by: [id number] Y Date: 09/15/2025 12:32
--- NOTE | 2025-09-15 12:09 | ECG_ITS ---
[facility] Test Date: 2025-09-15 Pat Name: RUSSELL WELLS Department: Room: - Gender: Female Script Writer: : 1995 Requested By: CHARBEL RODRIGUEZ Order Number: [id number] Reading MD: JOSÉ MIGUEL EDMONDS Measurements Intervals [place] Rate: 60 P: 49 DC: 162 QRS: 52 QRSD: 80 T: 61 QT: 392 QTc: 392 Interpretive Statements 1100 Sinus rhythm 1102 Sinus arrhythmia 9110 normal ECG Compared to ECG 04/26/2023 13:01:59 Ventricular premature complex(es) no longer present Electronically Signed On 09-15-2025 16:17:00 EST by JOSÉ MIGUEL EDMONDS
--- OUTSIDE RECORDS SUMMARY | 2025-09-15 12:20 | XMS_ITS | Clinical Summary ---
Author Organization [facility] Address [address] [place] [address] Care Team Providers Care Service Dog Trainer Name Role Phone Jacobo Dangelo MD Primary Care Provider [phone] Ryan Rodriguez DO Unavailable Allergies Active AllergyReactionsCriticalityNoted RvywBanfmskfGglbwtcuKonlm80/14/2023 Ethinyl Ejtlrnntj32/18/5239QjsfoTmmaCcp97/30/2023 Other Reaction(s): Unknown Other Reaction(s): Rash, rash,blisters Ipxqecmbviweei27/18/5639Gmngbdctfzj42/18/2023 Other Reaction(s): chest pain/ elevated BP Jbglbm7707/15/2023 Other Reaction(s): stomach upset Medications MedicationSigDispense QuantityRefillsLast FilledStart DateEnd DateStatus acetaminophen (Tylenol) 325 MG tablet Take 325 mg by mouth every 8 (eight) hours if needed.Active ibuprofen 800 MG tablet Take 800 mg by mouth04/16/2024ctive Active Problems ProblemNoted DateDiagnosed DateHistory of delivery, currently ([facility])03/19/20240127Nlhibubmcqls35/20/2024Gastroesophageal reflux disease 03/13/2024Nausea and vomiting during ([facility])03/13/2024nxiety, gwiasbdqrko38/17/407403 weeks gestation of ([facility])03/13/2024nemia affecting in second trimester ([facility])03/13/2024Headache in , antepartum ([facility])03/13/2024cute right ankle pain03/19/2023 Difficulty in tklcbzm1503/19/2023 Family History Medical HistoryRelationNameCommentsCerebral palsyBrotherMicrocephalyBrother Aortic aneurysmMaternal GrandfatherHypertensionMaternal Grandfatherbypass surgeryMaternal GrandfatherDiabetesMaternal GrandmotherHeart diseaseMaternal Grandmotherblood clotsMaternal Grandmotherbypass surgeryMaternal Grandmother DiabetesMother's SisterBreast cancerOtherDiabetesPaternal GrandmotherNo Known ProblemsSon(3)RelationNameStatusCommentsBrotherDeceasedFatherAliveMaternal GrandfatherMaternal GrandmotherMotherAliveMother's SisterOtherMaternal great auntPaternal GrandmotherSon(3) Social History Tobacco UseTypesPacks/DayYears UsedDateSmoking Tobacco: FormerCigarettes Smokeless Tobacco: Never Tobacco Cessation:Counseling Given: Not Answered Comments:Ex-light cigarettes smoker 1-9 cigarettes per day. Quit smoking 1-5 years ago. Alcohol UseStandard Drinks/WeekCommentsNever0 (1 standard drink = 0.6 oz pure alcohol)Caffine intake: occasionallyAUDIT-CAnswerDate RecordedQ1: How often do you have a drink containing alcohol?Monthly or less06/26/2023Q2: How many drinks containing alcohol do you have on a typical day when you are drinking?1 or 2 06/26/2023Q3: How often do you have six or more drinks on one occasion?Never 06/26/2023HQ-2AnswerDate RecordedPatient Health Questionnaire-2 Score0 06/26/2023EducationAnswerDate RecordedWhat is the highest level of school you have completed or the highest degree you have received?High school graduate 10/11/2023CommentsNoSex and Gender InformationValueDate RecordedSex Assigned at BirthNot on fileLegal NnoEwzvyb71/15/2023 6:50 PM EDTGender Identity Not on fileSexual OrientationNot on fileOccupationIndustryJob Start DateJob End DateVentra LaborerNot on fileNot on fileNot on file Last Filed Vital Signs Vital SignReadingTime TakenCommentsBlood Spkizhxu509/7207/ 10:36 AM EDT Fumnx0666 9:14 AM KIWVzzjntmnhix50.7 ??C (98 ??F)01/11/2024 9:14 AM EDT Respiratory Rate--Oxygen Tzfwrrtonp90%01/11/2024 9:14 AM EDTInhaled Oxygen Concentration--Oljdhb474 kg (257 lb 12.8 oz)05/25/2024 10:36 AM GJNHdcsrs171.4 cm (5' 5.5 )06/26/2023 4:10 PM EDTBody Mass Index42.25006/26/2023 4:10 PM EDT Plan of Treatment Health MaintenanceDue DateLast DoneCommentsCOVID-19 Vaccine ( season) 2025Influenza Vaccine (#1)2025Pap Smearervical Cancer Xicfqfrgo23/23/2026HPV/Ospqui32/, 04/11/2020, 04/06/2019 Pneumococcal Vaccine: Pediatrics (0 to 5 Years) and At-Risk Patients (6 to 64 Years)Aged OutNo longer eligible based on patient's age to complete this topic Procedures Procedure NamePriorityDate/TimeAssociated DiagnosisCommentsTHINPREP TIS PAP AND HPV MRNA E6/E7 REFLEX HPV 16,18/45 (19962)Soxihnv8503/06/2023 THINPREP TIS PAP REFLEX HPV MRNA E6/E7 (82732)Wntmuvk5505/19/2021 from Last 3 Months or Most Recently Relevant to Health Maintenance Results * THINPREP TIS PAP AND HPV MRNA E6/E7 REFLEX HPV 16,18/45 (50294) (03/06/2023) ComponentValueRef RangeTest MethodAnalysis TimePerformed AtPathologist SignatureCLINICAL INFORMATION:LILETTANOMS LEGACY EXTERNAL LABLMP:11/2022[facility] EXTERNAL LABPREV. PAP:NEGNOMS LEGACY EXTERNAL LABPREV. BX:None given [facility] LABSOURCE:EndocervixNOMS LEGACY EXTERNAL LABSTATEMENT OF ADEQUACY:SEE COMMENTNOMS LEGACY EXTERNAL LABComment: Satisfactory for evaluation. Endocervical/transformation zone component present. INTERPRETATION/RESULT:Negative for intraepithelial lesion or malignancy.[facility] EXTERNAL LABCOMMENT:This Pap test has been evaluated with computer assisted technology.[facility] EXTERNAL LABCYTOTECHNOLOGIST:SEE COMMENTNOOH [facility]GVIR[facility] EXTERNAL LABComment: BH, CT(ASCP) CT screening location: [facility] [employer] [facility] [address], [address] [place] [address]. COMMENTSEE COMMENTNOKINDRED HEALTHCARE EXTERNAL LABComment: EXPLANATORY NOTE: The Pap is a screening test for cervical cancer. It is not a diagnostic test and is subject to false negative and false positive results. It is most reliable when a satisfactory sample, regularly obtained, is submitted with relevant clinical findings and history, and when the Pap result is evaluated along with historic and current clinical information. HPV MRNA E6/E7Not DetectedNot DetectedNOKINDRED HEALTHCARE EXTERNAL LABComment: Methodology: Caddymaster-Mediated Amplification This assay detects E6/E7 viral messenger RNA (mRNA) from 14 high-risk HPV types (16,18,31,33,35,39,45,51,52,56,58,59,66,68). Cervical sources are required for HPV testing. If a vaginal source from a patient who has had a total hysterectomy with removal of cervix was submitted, please contact the testing laboratory for alternative testing options. For additional information, please refer to http://education.[facility]/faq/YCU436x0 (This link if provided for information/ educational purposes only.) Specimen (Source)Anatomical Location / LateralityCollection Method / Volume Collection TimeReceived Time03/06/2023 Narrative Authorizing ProviderResult TypeResult StatusWilliazeferino CHANEY LABSFinal ResultPerforming OrganizationAddressCity/State/ZIP CodePhone Number [facility] LAB * THINPREP TIS PAP REFLEX HPV MRNA E6/E7 (79682) (05/19/2021)ComponentValueRef RangeTest MethodAnalysis TimePerformed AtPathologist SignatureCLINICAL INFORMATION:[facility] EXTERNAL LABLMP:NANOM[facility] EXTERNAL LAB PREV. PAP:03/2020- NEGNOOH [facility]GV[facility] EXTERNAL LABPREV. BX:NA[facility] EXTERNAL LABSOURCE:CervixNOOH [facility] EXTERNAL LABSTATEMENT OF ADEQUACY:SEE COMMENTNOMS LEGACY EXTERNAL LABComment: Satisfactory for evaluation. Endocervical/transformation zone component absent. INTERPRETATION/RESULT:Negative for intraepithelial lesion or malignancy.[facility] EXTER[facility] LABCOMMENT:This Pap test has been evaluated with computer assisted technology.[facility] LABCYTOTECHNOLOGIST:SEE COMMENTNOMS LEGACY EXTERNAL LABComment: JEH, CT(ASCP) CT screening location: [place] [address]. REVIEW TERMINAL BLOCK ASSEMBLER:SEE COMMENTNOMS LEGACY EXTERNAL LABComment: RLP, CT(ASCP) CT screening location: [place] [address]. COMMENTSEE COMMENTNOMS LEGACY EXTERNAL LABComment: EXPLANATORY NOTE: The Pap is a screening test for cervical cancer. It is not a diagnostic test and is subject to false negative and false positive results. It is most reliable when a satisfactory sample, regularly obtained, is submitted with relevant clinical findings and history, and when the Pap result is evaluated along with historic and current clinical information. Specimen (Source)Anatomical Location / LateralityCollection Method / Volume Collection TimeReceived Time05/19/2021 Narrative Authorizing ProviderResult TypeResult StatusRichard A Visci DOECW LABSFinal ResultPerforming OrganizationAddressCity/State/ZIP CodePhone Number [facility] from Last 3 Months or Most Recently Relevant to Health Maintenance Insurance Care Teams Team MemberRelationshipSpecialtyStart DateEnd Date Jacobo Dangelo MD [address] [place] [id number] [facility] - [facility] Ryan Rodriguez DO [address] [place] [address] Dr [address] [place], [place] [id number] PCP - [facility]10/28/24
--- OUTSIDE RECORDS SUMMARY | 2025-09-15 12:20 | XMS_ITS | Patient Health Record ---
Author Organization [facility] [place] Address [address] [place] [address] Care Team Providers Care Template Layout Worker Name Role Phone Jacobo Dangelo DO Primary Care Provider Unavailab le Allergies Allergen (clinical drug ingredient) Drug/Non Drug Allergy documented on EMR Reaction Allergy Type Onset Date Status AlevehivesDrug AllergyActiveLatexLatexUnknownAllergyActive Reason For Referral No Information Medications Medication SIG (Take, Route, Frequency, Duration) Notes Start Date End Date Status Meloxicam 15 MG 1 tablet Orally Once a day; Dura tion: 30 days 07/10/2023ctiveMeloxicam 15 MG1 tablet Orally Once a day; Duration: 30 days patient take ibuprofen w/o reaction; Dr Simeon aware and approved medication 05/29/2023ctiveOmeprazole 10 MG1 capsule 30 minutes before morning meal Orally Once a dayActiveWellbutrin SR 150 MG1 tablet in the morning Orally Once a day Active Social History Tobacco Use: Social History Observation Description Date Details (start date - stop date) Former Smoker NA - NA Tobacco Use/Smoking Question Answer Notes Patient is a former smoker Problems Problem Type SNOMED Code ICD Code Onset Dates Problem Status W/U Status Risk Notes Problem Articular cartilage disorder of ankle AND/OR foot (45110532) Other articular cartilage disorders, 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) ActiveconfirmedProblemOsteochondritis dissecans (97060697)Osteochondritis dissecans, 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 00 Surgical History Surgery Date(Month/Year) right ankle surgery unknown 09/18 C-sections x3 Hospitalization History Reason Date(Month/Year) irregular heart rate
--- OUTSIDE RECORDS SUMMARY | 2025-09-15 12:20 | XMS_ITS | Clinical Summary ---
Author Organization [facility] Address [address] [place] [address] Care Team Providers Care Organ Assembler Name Role Phone Jacobo Dangelo DO Primary Care Provider [phone] PocJacobo dior Unavailable Allergies No known active allergies Medications MedicationSigDispense QuantityRefillsLast FilledStart DateEnd DateStatus sertraline (ZOLOFT) 50 mg tablet Take 50 mg by mouth once daily.Active cyclobenzaprine (FLEXERIL) 5 mg tablet Take 1 tablet by mouth three times daily as needed. 1 in the morning, 1 in the after, 2 at hs prn for back pain08/13/2022ctive etodolac (LODINE-XL) 500 mg 24 hr tablet Take 1 tablet by mouth once daily. 30 tablet ctive Active Problems ProblemNoted DateDiagnosed DateAnxiety and wabqfkijyc74/18/2022TSD (post- traumatic stress disorder)08/14/2022MI 40.0-44.9, adult08/14/2022History of axyfwsggwwqa40/18/2022Former fvjuer0908/14/2022History of tmzeolh0608/14/2022 Difficult intravenous bzannr0108/14/20229680Oecggl35/18/2022steochondritis dissecans of right talus08/08/20223778Lfqytariqdawupb82/06/6325Lvkindtaluuk10/06/2018 Family History Medical HistoryRelationCommentsAsthmaBrotherHeartFatherHeartMotherAnesthesia ProblemsNo Family HistoryRelationStatusCommentsBrotherAliveFatherAliveMother Alive Social History Tobacco UseTypesPacks/DayYears UsedDateSmoking Tobacco: FormerCigarettes0.486874 - 2019Smokeless Tobacco: Never Tobacco Cessation:Counseling Given: Not Answered Alcohol UseStandard Drinks/WeekCommentsNo0 (1 standard drink = 0.6 oz pure alcohol)Area Deprivation IndexAnswerDate RecordedNational Score (1-100), lower number is lower nnkh619403/13/2023State Score (1-10), lower number is lower risk7 3Data from: https://www.neighborhoodatlas.[facility]/. Last address used for [address]CommentsNoSex and Gender InformationValueDate RecordedSex Assigned at BirthNot on fileLegal Sex Aofosg2207/07/2018 4:53 PM EDTGender IdentityNot on fileSexual OrientationNot on file Last Filed Vital Signs Vital SignReadingTime TakenCommentsBlood Mhrnligu153/6911 1:30 PM EDT Vhrfi865008/28/2022 1:30 PM SASIgbjujedzor13.3 ??C (97.3 ??F)08/28/2022 1:00 PM EDTRespiratory Dgtj965410/28/2021 1:30 PM EDTOxygen Cngzuikuln31%08/28/2022 1:30 PM EDTInhaled Oxygen Concentration--Rcanmm848.7 kg (266 lb)08/14/2022 11:13 AM EDTpatient zywowzokEzryzw609.1 cm (5' 5 )08/14/2022 11:13 AM EDTpatient reported Body Mass Index44.261 11:13 AM EDT Plan of Treatment Health MaintenanceDue DateLast DoneCommentsHIV Xrasxtcwj23/12/2012Hepatitis C Bwznuqawl19/12/2012Cervical Cancer Ungbvubpx73/12/2015HPV Vaccine (1 - 3-dose SCDM series)2021ovid-19 Vaccine (2024- season)2025Influenza Vaccine (#1)2025DTaP,Tdap,Td Vaccine (7 - Td or Tdap)/11/2021, 12/29/1999, 05/31/1997, Additional history existsHepatitis B VaccineCompleted 01/27/1996, 08/06/1995, 1995 Insurance Care Teams Team MemberRelationshipSpecialtyStart DateEnd Date Jacobo Dangelo DO [address] [place] [id number] PCP - GeneralFamily Medicine07/07/18 Jacobo Lamb [address] [id number] ReferringOrthopedics07/18/22
--- OUTSIDE RECORDS SUMMARY | 2025-09-15 12:21 | XMS_ITS | Clinical Summary ---
Author Organization [facility] Address [address], [address] [place] [address] Care Team Providers Care Setter Off Name Role Phone None, None Primary Care Provider Unavailabl e Allergies Active AllergyReactionsCriticalityNoted AllaGdgczrzpUhxgeThmwVkz82/12/2024 Medications MedicationSigDispense QuantityRefillsLast FilledStart DateEnd DateStatus ferrous sulfate (IRON 325) 325 (65 Fe) MG tablet Take 1 tablet by mouth daily (with breakfast)01/29/2024ctive Vit-Fe Fumarate-FA ( VITAMIN) 27-0.8 MG TABS Take 1 tablet by mouth daily3Active Social History Tobacco UseTypesPacks/DayYears UsedDateSmoking Tobacco: Never Assessed CommentsNoSex and Gender InformationValueDate RecordedSex Assigned at Papssa1604/08/2024 7:01 AM EDTLegal BflLjpkrw55/28/2024 8:45 AM EDTGender Identity Lxetid6204/08/2024 7:01 AM EDTSexual OrzstgxkjfaBvvxbqek66/12/2024 7:01 AM EDT Last Filed Vital Signs Vital SignReadingTime TakenCommentsBlood Bbtolcon418/8104/08/2024 7:10 AM EDT Xnswq884904/08/2024 7:10 AM BPRJvxsabvbomb85.7 ??C (98 ??F)04/08/2024 7:10 AM EDT Respiratory Tbsk698204/08/2024 7:10 AM EDTOxygen Saturation--Inhaled Oxygen Concentration--Aybaqp575.4 kg (272 lb)04/08/2024 7:10 AM HHJRchywd460.1 cm (5' 5 )04/08/2024 7:10 AM EDTBody Mass Index45.26004/08/2024 7:10 AM EDT Plan of Treatment Not on file Insurance Care Teams Team MemberRelationshipSpecialtyStart DateEnd Date None, None PCP - General04/08/24
--- OUTSIDE RECORDS SUMMARY | 2025-09-15 12:22 | XMS_ITS | CCD ---
Author Organization [facility] Care Team Providers Care Motor Racer Name Role Phone DO Charbel Rodriguez Primary Care Provider ANGELY Yee Emergency Provider [phone] Charbel Rodriguez DO Primary Care Provider Charbel Lamb Unavailable Charbel Rodriguez Unavailable TESSA SANCHEZ Admitting Unavailable TESSA SANCHEZ Attending Unavailable CHARBEL RODRIGUEZ Primary Care Unavailable Charbel Rodriguez DO Primary Care Provider [phone] Charbel Lamb Unavailable MICHAEL, DR BARGER Primary Care Unavailable HAY, DR ADAME Admitting Unavailable HAY, DR ADAME Attending Unavailable HAY, DR ADAME Consulting Unavailable MICHAEL, DR BARGER Admitting Unavailable GIRROSEY, DR BARGER Attending Unavailable GIRROSEY, DR BARGER Primary Care Unavailable GIRROSEY, DR BARGER Consulting Unavailable GIRROSEY, DR BARGER Admitting Unavailable GIRROSEY, DR BARGER Attending Unavailable GIRORSEY, DR BARGER Primary Care Unavailable GIRROSEY, DR [...] Primary Care Unavailable TESSA SANCHEZ Attending Unavailable MICHAEL, CHARBEL ARROYO Primary Care Unavailable POCOS, CHARBEL Jerez Referring Unavailable TESSA SANCHEZ Attending Unavailable ARMAND, TESSA Stark Referring Unavailable MICHAEL, CHARBEL ARROYO Primary Care Unavailable MICHAEL, CHARBEL ARROYO Primary Care Unavailable Charbel Rodriguez DO Primary Care Provider DO Charbel Rodriguez Primary Care Provider Ryan Rodriguez Attending Provider VISCI, SONIA A Attending Unavailable VISCI, SONIA A Attending Unavailable VISCI, SONIA A Attending Unavailable KIEPERT, JOHNSON A Attending Unavailable VISCI, SONIA A Attending Unavailable VISCI, SONIA A Referring Unavailable VISCI, SONIA A Referring Unavailable VISCI, SONIA A Attending Unavailable VISCI, SONIA A Attending Unavailable VISCI, SONIA A Referring Unavailable MICHAEL, RYAN Attending Unavailable MICHAEL, RYAN Attending Unavailable MICHAEL, RYAN Attending Unavailable MICHAEL, RYAN Attending Unavailable MICHAEL, RYNA Attending Unavailable ELMER, SYEDA Attending Unavailable VISCI, SONIA A Attending Unavailable VISCI, SONIA A Referring Unavailable Michael, DO Davis Attending Provider [phone] Charbel Rodriguez DO Primary Care Provider Charbel Rodriguez DO Attending Provider [phone] Charbel Rodriguez Attending Unavailable Girrosey, Charbel Admitting Unavailable Girrosey, Charbel Primary Care Unavailable Michael, Charbel Primary Care Unavailable Michael, Charbel Attending Unavailable Michael, Charbel Admitting Unavailable Girrosey, Charbel Attending Unavailable Girrosey, Charbel Admitting Unavailable Girrosey, Charbel Primary Care Unavailable Michael, Charbel Primary Care Unavailable Michael, Ryan Admitting Unavailable Michael, Ryan Attending Unavailable Charbel Rodriguez DO Primary Care Provider Charbel Rodriguez DO Attending Provider [phone] Jayleen Jones APRN Attending Provider [phone] Attending Provider Unavailab le Charbel Rodriguez DO Primary Care Provider [phone] Charbel Rodriguez DO Attending Provider [phone] Allergies Allergy ClassificationReported Allergen(s)Allergy TypeDate of OnsetReaction(s) FacilityEthinyl Estradiol (1 source)Ethinyl EstradiolDrug Nmlamyf13-16-8151QisozrzcjOhio State Health SystemLatex (1 source)LatexSubstance Uyupway24-94-2189Tbah, rash,blistersOhio State Health SystemLevonorgestrel (1 source)LevonorgestrelDrug Bvchezu90-84-0656ZswprgukoOhio State Health System NSAIDs (1 source)NaproxenDrug Ekmnmlq60-79-6792OljhjFwnmzcjzzOhio State Health System Phentermine (1 source)PhentermineDrug Yboynrq20-10-3880aneyd pain/ elevated BPOhio State Health Systemtomato allergenic extract (1 source)tomato allergenic extractDrug Bkgmnqe55-53-5986phiwuli upsMartins Ferry Hospital (20 sources)Latex; Translations: [Latex]Propensity to adverse reactions 24-16-2253Nxdx, Rash, Blisters, rash,blisters, Rash, rash,blistersOhio State Health System (20 sources)Naproxen; Translations: [NAPROXEN]Drug Jtotjdm66-98-4048IyrcwPremier Health Atrium Medical Center (14 sources)Naproxen; Translations: [Aleve]Drug Usxchzo83-54-0814MdasaUezSelect Medical [facility] Repository (13 sources)Seasonal allergyPropensity to adverse reactionsRusk Rehabilitation Center [employer] Other (13 sources)Tomato ProductsPropensity to adverse reactionsArkansas State Psychiatric Hospital [employer] Other (1 source)natural latex rubberDrug allergy (disorder)89-48-3597Xqk [facility] Repository (8 sources)SeasonaleDrug allergyRoger Williams Medical Center [employer] Other (8 sources)TomatoesDrug allergystRebsamen Regional Medical Center [employer] Other (16 sources)PhentermineDrug Kflsalp57-48-8843gxvei pain/ elevated BP, chest pain/ elevated BP, low potassiumOhio State Health System (12 sources)Ethinyl Estradiol; Translations: [ethinyl estradiol]Drug Allergy 12-91-1497Isxfcvs ReactionOhio State Health System (12 sources)Levonorgestrel; Translations: [levonorgestrel]Drug Wjxseyh02-94-1134 Unknown ReactionOhio State Health System (12 sources)tomato allergenic extract; Translations: [tomato]Drug Allergy 88-53-9506anjnlle upsetOhio State Health System (1 source)PhentermineDrug Gydeysp04-90-1206OoghythjsOhio State Health System Repository Medications Current Medications MedicationDrug Class(es)DatesSig (Normalized)Sig (Original)amoxicillin 875 mg oral tablet (12 sources)Penicillin-class AntibacterialStart: 66-15-8378vqwn 1 tablet by mouth twice dailyAmoxicillin 875 mg tablet Active 875 MG PO Twice daily 16 08June 29, 2025 12:00am Complies with drug therapyStart: 06-15-2024 End: 12-04-4543xdxy 1 tablet by mouth twice dailyAmoxicillin 875 mg tablet Discontinued 875 MG PO Twice daily June 15, 2024 12:00am June 16, 2024 11:55ambrompheniramine maleate 0.4 mg/ml / dextromethorphan hydrobromide 2 mg/ml / pseudoephedrine hydrochloride 6 mg/ml oral solution (5 sources)alpha-Adrenergic Agonist, Uncompetitive R-svsjil-A-aspartate Receptor Antagonist, Sigma-1 AgonistStart: 09-71-2417lbqv 10 mL by mouth every six hours Uraycixvg-Okebggvl-YQ 30-2-10 MG/5ML 10 mL Orally every 6 hours for 5 days Nov, Activelosartan potassium 25 mg oral tablet (1 source)Angiotensin 2 Receptor BlockerStart: 85-17-3548ovub 1 tablet by mouth every twenty-four hoursLosartan Potassium 25 MG 1 tablet Orally Once a day for 30 days Mar, Activemeloxicam 15 mg oral tablet (3 sources)Nonsteroidal Anti-inflammatory DrugStart: 06-98-2634wbmj 1 tablet by mouth every twenty-four hoursMeloxicam 15 MG 1 tablet Orally Once a day May, Opnswn22 hr metFORMIN hydrochloride 500 mg extended release oral tablet (5 sources)BiguanideStart: 01-23-5296oceu 1 tablet by mouth once dailyMetformin 500 mg tablet extended release 24 hr Active 500 MG PO Daily April 21, 2025 12:00am Take with largest meal Complies with drug therapymethylPREDNISolone 4 mg oral tablet (5 sources)CorticosteroidStart: 06-14-1837jrrmwhKYYUZFVtzdhz 4 MG as directed Orally for daily dose take half with breakfast, half with dinner for 6 days Nov, ActiveNo Name (No Known Home Meds) (2 sources)Start: 84-25-5662On Name (No Known Home Meds) Active January 13, 2025 12:00amoxyCODONE hydrochloride 5 mg oral tablet (3 sources)Opioid AgonistStart: 08-27-2022 End: 29-34-8458feaj 1 tablet by mouth every six hours as needed for pain oxyCODONE IR (ROXICODONE) 5 mg immediate release tablet Indications: Osteochondritis dissecans of right talus Take 1 tablet by mouth every 6 hours as needed for pain for up to 7 days. for more severepostop pain after surgery. 28 tablet 0 08/27/2022 09/03/2022 ActiveComment on above:Take 1 tablet by mouth every 6 hours as needed for pain for up to 7 days. for more severe postop pain after surgery.phentermine hydrochloride 37.5 mg oral tablet (2 sources)Sympathomimetic Amine AnorecticStart: 74-51-5542twzo 1 tablet by mouth once daily before breakfastAdipex-P 37.5 MG 1 tablet before breakfast Orally Once a day for 30 days Mar, Active Completed/Discontinued Medications MedicationDrug Class(es)DatesSig (Normalized)Sig (Original)acetaminophen 325 mg oral tablet (20 sources)Start: 08-27-2022 End: 01-24-8688ckyt 2 tablets by mouth every four hoursacetaminophen (TYLENOL) 325 mg tablet Take 2 tablets by mouth every 4 hours while awake. after surgery on 08/28/22 until no longer needed. 0 08/27/2022 09/12/2022 Discontinued (Course of therapy completed)Start: 11-30-2021 End: 54-07-3595djbt 2 tablets by mouth every six hoursAcetaminophen 500 mg Tablet Discontinued 1000 MG PO Q6H November 30, 2021 1:00am July 07, 2022 6:05pmStart: 11-30-2021 End: 47-41-9602cjvz 1000 mg by mouth every six hoursAcetaminophen Discontinued 1000 MG PO Q6H November 30, 2021 1:00am July 07, 2022 6:05pmtylenol 1 tab Oral prn Not-Takingtylenol 1 tab Oral prn ActiveComment on above:Take 2 tablets by mouth every 4 hours while awake. after surgery on 08/28/22 until no longer needed.acetaminophen 325 mg / HYDROcodone bitartrate 5 mg oral tablet (13 sources)Opioid AgonistStart: 02-12-2018 End: 98-49-0449Gjdaltwesfu-Acetaminophen 5-325 mg tablet Discontinued 1 TAB PO As Directed as needed for Pain February 12, 2018 12:00am March 31, 2018 2:07pm ALPRAZolam 0.5 mg oral tablet (15 sources)BenzodiazepineStart: 11-29-2017 End: 06-58-4697tvnn 1 tablet by mouth once daily as needed for anxietyAlprazolam 0.5 mg tablet Discontinued 0.5 MG PO Daily as needed for Anxiety November 29, 2017 1:00am April 18, 2021 7:19pmComment on above:Take 0.5 mg by mouth as needed.atropine sulfate 0.025 mg / diphenoxylate hydrochloride 2.5 mg oral tablet (13 sources)Anticholinergic, Cholinergic Muscarinic Antagonist, Antidiarrheal Start: 03-31-2018 End: 74-25-4942jnyc 1 tablet by mouth every eight hours as needed for diarrhea Diphenoxylate-Atropine (Lomotil) 2.5-0.025 mg Tablet Discontinued 1 TAB PO Every 8 hours as needed for Diarrhea March 31, 2018 12:00am July 02, 2018 3:46amazithromycin 250 mg oral tablet (11 sources)Macrolide AntimicrobialStart: 06-16-2024 End: 35-51-1450Guufnvhaklqz 250 mg tablet Discontinued 0 PO .COMPLEX June 16, 2024 12:00am January 04, 2025 12:02pm For 250 mg dose pack: take 500 mg today (day 1), then 250 mg for 4 days (days 2-5) POStart: 67-05-2928Tkqguaqtjaih Active 0 PO .COMPLEX June 16, 2024 12:00am For 250 mg dose pack: take 500 mg today (day 1), then 250 mg for 4 days (days 2-5) PObetaxolol hydrochloride 10 mg oral tablet (2 sources)beta-Adrenergic BlockerStart: 10-03-2018 End: 32-60-4635bqpq 0.5 tablet by mouth once dailybetaxolol (KERLONE) 10 mg tablet Take 0.5 tablets by mouth once daily. 30 tablet 3 10/03/2018 08/14/2022 Discontinued (Discontinued by Patient)Comment on above:Take 0.5 tablets by mouth once daily.24 hr buPROPion hydrochloride 150 mg extended release oral tablet (5 sources)AminoketoneStart: 45-58-2324pxdn 1 tablet by mouth every twenty-four hoursWellbutrin XL 150 MG 1 tablet in the morning Orally Once a day Apr, Not-Takingcalcium carbonate 500 mg chewable tablet (20 sources)take 1 tablet by mouth every twenty-four hoursTums 500 MG 1 tablet Orally Once a day prn Not-Takingcephalexin 500 mg oral capsule (4 sources)Cephalosporin AntibacterialStart: 08-27-2022 End: 90-45-6827krit 1 capsule by mouth four times dailycephALEXin (KEFLEX) 500 mg capsule Take 1 capsule by mouth four times daily. 20 capsule 0 08/27/2022 09/12/2022 Discontinued (Course of therapy completed)Comment on above:Take 1 capsule by mouth four times daily.cyclobenzaprine hydrochloride 5 mg oral tablet (20 sources)Muscle RelaxantStart: 17-25-7046opev 1 tablet by mouth every eight hours as neededcyclobenzaprine (FLEXERIL) 5 mg tablet Take 1 tablet by mouth three times daily as needed. 1 in themorning, 1 in the after, 2 at hs prn for back pain 0 08/13/2022 ActiveComment on above:Take 1 tablet by mouth three times daily as needed. 1 in the morning, 1 in the after, 2 at hs prn for back pain docusate sodium 100 mg oral capsule (13 sources)Start: 11-30-2021 End: 67-85-4948vrwq 1 capsule by mouth once daily at bedtime as needed for constipationDocusate Sodium (Dok) 100 mg Capsule Discontinued 100 MG PO Daily at bedtime as needed for Constipation November 30, 2021 1:00am July 07, 2022 6:05pm24 hr etodolac 500 mg extended release oral tablet (4 sources)Nonsteroidal Anti-inflammatory DrugStart: 84-12-1189ixce 1 tablet by mouth once dailyetodolac (LODINE-XL) 500 mg 24 hr tablet Take 1 tablet by mouth once daily. 30 tablet 2 01/02/2023 ActiveComment on above:Take 1 tablet by mouth once daily.fluconazole 150 mg oral tablet (9 sources)Azole AntifungalStart: 25-26-4881tsdw 1 tablet by mouth every twenty- four hoursDiflucan 150 MG 1 tablet Orally qd May, Not-Taking HYDROmorphone hydrochloride 2 mg oral tablet (13 sources)Opioid AgonistStart: 11-30-2021 End: 62-96-7947xhpc 1 tablet by mouth every four hours as needed for pain Hydromorphone 2 mg Tablet Discontinued 2 MG PO Q4H as needed for Pain Scale 2 - 6 10 5 November 30, 2021 July 07, 2022 6:05pmhydrOXYzine hydrochloride 25 mg oral tablet (13 sources)AntihistamineStart: 11-28-2021 End: 56-32-7108ftnp 1 tablet by mouth every eight hoursHydroxyzine Hcl 25 mg tablet Discontinued 25 MG PO Every 8 hours November 28, 2021 1:00am July 07, 2022 6:05pmibuprofen 200 mg oral tablet (10 sources)Nonsteroidal Anti-inflammatory Drugtake 1 tablet by mouth three times daily at mealtime as neededIbuprofen 200 MG 1 tablet with food or milk as needed Orally Three times a day prn Not-TakingIUD's (13 sources)IUD's Not-TakingIUD's Activeketorolac tromethamine 10 mg oral tablet (4 sources)Nonsteroidal Anti-inflammatory Drug, Cyclooxygenase InhibitorStart: 08-27-2022 End: 80-20-6756sjiv 1 tablet by mouth every six hours as neededkeTORolac (TORADOL) 10 mg tablet Take 1 tablet by mouth every 6 hours as needed. for moderate levelof postoperative pain after surgery on 08/28/22. 20 tablet 0 08/27/2022 09/12/2022 Discontinued (Course of therapy completed)Comment on above:Take 1 tablet by mouth every 6 hours as needed. for moderate level of postoperative pain after surgery on 08/28/22.loratadine 10 mg oral tablet (20 sources)Start: 67-82-8012yaqh 1 tablet by mouth once daily as needed Loratadine 10 MG 1 tablet Orally Once a day for 30 day(s) prn Jan, Not-Takingmetoclopramide 10 mg oral tablet (13 sources)Dopamine-2 Receptor AntagonistStart: 05-30-2021 End: 71-65-3924vtqt 1 tablet by mouth every six hours as needed for nausea and vomitingMetoclopramide Hcl (Reglan) 10 mg tablet Discontinued 10 MG PO Q6H as needed for nausea and vomiting May 30, 2021 12:00am August 31, 2021 12:52pmmetroNIDAZOLE 500 mg oral tablet (13 sources)Nitroimidazole AntimicrobialStart: 02-12-2018 End: 80-94-5880yrfy 1 tablet by mouth twice dailyMetronidazole (Flagyl) 500 mg tablet Discontinued 500 MG PO Twice daily February 12, 2018 12:00amMarch 31, 2018 2:07pmomeprazole 20 mg delayed release oral capsule (20 sources)Proton Pump InhibitorStart: 07-21-2014 End: 80-74-8800Wptzquhqez 20 mg Capsule,Delayed Release(Dr/Ec) Discontinued 20 MG PO As Directed as needed for Gastric Reflux February 12, 2018 12:00am April 18, 2021 7:19pmComment on above:Take 20 mg by mouth once daily.ondansetron 4 mg disintegrating oral tablet (20 sources)Serotonin-3 Receptor AntagonistStart: 08-31-2021 End: 47-95-8387ljov 1 tablet by mouth every eight hoursOndansetron 4 mg tablet,disintegrating Discontinued 4 MG PO Q8H 9 August 31, 2021 12:00am November 28, 2021 8:21amStart: 03-31-2018 End: 76-23-1703kyci 1 tablet by mouth every four hours for nauseaOndansetron (Zofran Odt) 4 mg Tablet,Disintegrating Discontinued 4 MG PO Q4H as needed for Nausea March 31, 2018 12:00am July 02, 2018 3:46am administer first dose 30 minutes before start ofemetogenic chemotherapyStart: 11-29-2017 End: 61-50-5604ebkx 1 tablet by mouth every eight hours as needed for nausea and vomitingOndansetron (Zofran Odt) 4 mg tablet,disintegrating Discontinued 4 MG PO Q8H as needed for nausea and vomiting 10 3 November 29, 2017 1:00am December 01, 2017 1:00am December 02, 2017 1:02ampredniSONE 20 mg oral tablet (20 sources)Start: 80-15-0441opwfidRQZW 20 MG 3 tablets Orally once a day x5 days with food or milk for 5 days Jul, Not-TakingStart: 08-13-2022 End: 17-14-4543hvnk 1 tablet by mouth three times dailypredniSONE (DELTASONE) 20 mg tablet Take 1 tablet by mouth three times daily. 0 08/13/2022 10/10/2022 Discontinued (Discontinued by another Health Care Provider)Comment on above:Take 1 tablet by mouth three times daily.sertraline 50 mg oral tablet (20 sources)Serotonin Reuptake InhibitorStart: 07-07-2022 End: 05-03-1598Xzhhpyknqx Discontinued MG TABLET July 07, 2022 12:00am June 15, 2024 3:55pmStart: 01-24-2022 End: 89-61-4216Qtydyocnyb 50 mg tablet Discontinued MG July 07, 2022 12:00am June 15, 2024 3:55pmStart: 11-29-2017 End: 91-20-4067fuit 1 tablet by mouth at bedtimeSertraline 50 mg tablet Discontinued 50 MG PO Bedtime November 29, 2017 1:00am April 18, 2021 7:19pm Comment on above:Take 50 mg by mouth once daily. Problems Active Problems Problem ClassificationProblemDateDocumented DateEpisodic/ChronicAbdominal pain (14 sources)Abdominal pain; Translations: [Unspecified abdominal pain]11-29-2017 EpisodicAnxiety disorders (20 sources)Anxiety; Translations: [Anxiety disorder, unspecified]Onset: 631474-09-0691GwilihxYifrpxe dysrhythmias (20 sources)Ventricular premature beats; Translations: [Ventricular premature depolarization]07-77-8963YdadtaqAlowpfx dysrhythmias (20 sources)Bradycardia; Translations: [Bradycardia, unspecified]Onset: 372901-56-3874BrtdxbwbKdvcrdhlxk and other anemia (10 sources)Iron deficiency anemia; Translations: [Iron deficiency anemia, unspecified]14-80-9348DtnrtdcvJjzbynikyp and other anemia (8 sources)Iron deficiency anemia, unspecified; Translations: [Iron deficiency anemia, unspecified]Onset: 455881-81-9838XeqhhgqbRzsmkgok mellitus without complication (19 sources)Hyperglycemia; Translations: [Hyperglycemia, unspecified]Onset: 889233-98-7155PtfpseeaFqnhowwv of white blood cells (15 sources)Leukocytosis; Translations: [Elevated white blood cell count, unspecified]ChronicDisorders usually diagnosed in infancy, childhood, or adolescence (20 sources)Separation anxiety; Translations: [Separation anxiety disorder of childhood]ChronicEsophageal disorders (20 sources)Gastroesophageal reflux disease; Translations: [Gastro-esophageal reflux disease without esophagitis]ChronicFluid and electrolyte disorders (13 sources)Dehydration; Translations: [Dehydration]24-27-9135VuuodocdDoqaduhu of lower limb (1 source)Other fracture of unspecified lower leg, initial encounter for closed fractureEpisodicHeadache; including migraine (13 sources)Headache; Translations: [Headache]46-78-4445QtoxmjdpOfizzwwrck during ; abruptio placenta; placenta previa (13 sources)Threatened miscarriage; Translations: [Threatened ] 57-04-8093NuckyqwhTjtghzwkigeb diseases of female pelvic organs (13 sources)Inflammation of cervix; Translations: [Inflammatory disease of cervix uteri]65-83-4302UhikkvbaCprplck and fatigue (2 sources)Other fatigueEpisodicMenstrual disorders (5 sources)Irregular periods; Translations: [Irregular menstruation, unspecified]71-41-7247UegpblpGtdq disorders (20 sources)Recurrent major depressive episodes; Translations: [Major depressive disorder, recurrent, unspecified]ChronicNausea and vomiting (9 sources)Nausea; Translations: [Nausea with vomiting, unspecified]Onset: 16-43-2931ZbekcygxBpfjgpegbzo chest pain (14 sources)Atypical chest pain; Translations: [Other chest pain]01-04-2018 EpisodicOther bone disease and musculoskeletal deformities (20 sources)Osteochondritis dissecans of the talus; Translations: [Osteochondritis dissecans, 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]Onset: 06-57-1124UdjgopeUdtqn bone disease and musculoskeletal deformities (2 sources)Osteochondritis dissecans, 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; Translations: [Osteochondritis dissecans of right talus]Onset: 84-02-0578Vrijbvg Other complications of (12 sources)Nausea and vomiting; Translations: [Vomiting of , unspecified]54-29-7375WdaollohNelhl complications of (11 sources)Vomiting of , unspecified; Translations: [Nausea and vomiting during ]10-36-5828RpgoomlhRtlqj endocrine disorders (20 sources)Hypoglycemia; Translations: [Hypoglycemia, unspecified]ChronicOther lower respiratory disease (2 sources)Cough; Translations: [Acute cough]75-16-2945ChvknuvuTyaqc non- traumatic joint disorders (13 sources)Acute ankle pain; Translations: [Pain in 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]38-42-0692PtcyaeurEkgbv nutritional; endocrine; and metabolic disorders (20 sources)Body mass index 40+ - severely obese; Translations: [Body mass index (BMI) 40.0-44.9, adult]Onset: 40-17-3696XlnktufGkwqh nutritional; endocrine; and metabolic disorders (1 source)Body mass index (BMI) 40.0-44.9, adult; Translations: [BMI 40.0-44.9, adult (HCC)]Onset: 67-77-8821LqdhikmXwbfh nutritional; endocrine; and metabolic disorders (5 sources)Body mass index (BMI) 45.0-49.9, adult; Translations: [Body Mass Index 45.0-49.9, adult]36-73-0745GvmyotqNhvay nutritional; endocrine; and metabolic disorders (11 sources)Metabolic syndrome X; Translations: [Metabolic syndrome]04-21-2025 ChronicOther nutritional; endocrine; and metabolic disorders (10 sources)Abnormal weight gain; Translations: [Abnormal weight gain]Episodic Other nutritional; endocrine; and metabolic disorders (10 sources)Weight increased; Translations: [Abnormal weight gain]01-04-2025 EpisodicOther screening for suspected conditions (not mental disorders or infectious disease) (1 source)Other specified abnormal findings of blood chemistry; Translations: [Other specified abnormal findings of blood chemistry]Onset: 49-87-6428Qlceontn Other upper respiratory disease (20 sources)Allergic rhinitis; Translations: [Allergic rhinitis, unspecified] ChronicOther upper respiratory disease (1 source)Nasal congestionEpisodicOther upper respiratory infections (2 sources)Acute pharyngitis, unspecified; Translations: [Acute upper respiratory infection, unspecified]EpisodicSpondylosis; intervertebral disc disorders; other back problems (20 sources)Sciatica; Translations: [Sciatica, unspecified side]EpisodicSyncope (15 sources)Near syncope; Translations: [Syncope and collapse]70-01-0334Ekwvgvyn Unclassified (3 sources)LOW BACK PAIN, UNSPECIFIED; Translations: [LOW BACK PAIN, UNSPECIFIED]Onset: 39-86-7184Yossqmjvwghd (3 sources)CONTACT W/AND (SUSP) EXPOS COVID-19; Translations: [CONTACT W/AND (SUSP) EXPOS COVID-19]Onset: 55-49-4850Rtnkayojyqum (1 source)Acute bilateral low back pain without sciatica; Translations: [Acute bilateral low back pain without sciatica]Onset: 00-52-9949Aenbd infection (13 sources)Viral disease; Translations: [Viral infection, unspecified] 68-60-8532Ywwigrbw Past or Other Problems Problem ClassificationProblemDateDocumented DateEpisodic/ChronicConditions associated with dizziness or vertigo (20 sources)Lightheadedness; Translations: [Dizziness and giddiness]Onset: 529336-52-1061UsbrtedyWpwclfbjfs and other anemia (20 sources)Anemia; Translations: [Anemia, unspecified]Onset: 44-95-3284Zjrxifgr Deficiency and other anemia (1 source)Anemia, unspecified; Translations: [Anemia, unspecified type]Onset: 90-22-0454RkuhaxvaI Codes: Natural/environment (1 source)Exposure to other specified factors, initial encounter; Translations: [EXPOSURE OTHER SPEC FACTORS INITIAL]Onset: 11-77-3435AnrxlnfvYwknwkqd; including migraine (1 source)Headache; including migraineResidual codes; unclassified (20 sources)Difficult venous access; Translations: [Other specified health status]Onset: 22-83-9317XmhxnhvtQydvhnnc codes; unclassified (20 sources)History of syncope; Translations: [Personal history of other specified conditions]Onset: 17-92-9927NaiekjvuUgwfajyc codes; unclassified (20 sources)History of palpitations; Translations: [Personal history of other specified conditions]Onset: 43-64-4910HjmwmufgUnolnqsk codes; unclassified (1 source)Other specified health status; Translations: [Difficult intravenous access]Onset: 85-82-9886LzhlwvnbPjcanhkw codes; unclassified (2 sources)Personal history of other specified conditions; Translations: [History of syncope]Onset: 19-10-2431BfawizvyHdnbdcuxl and history of mental health and substance abuse codes (20 sources)Ex-smoker; Translations: [Personal history of nicotine dependence] Onset: 02-23-4052KzjhqhxeAyarlnf and strains (1 source)Strain of muscle, fascia and tendon of lower back, initial encounter; Translations: [STRAIN MUSC FASC TENDON LW BACK INT]Onset: 66-84-5094Efvmuyxr Unclassified (1 source)Lumbar pain M54.50Unclassified (1 source)LOW BACK PAIN, UNSPECIFIED; Translations: [LOW BACK PAIN, UNSPECIFIED] Onset: 53-26-9099Jmtwgupytlkr (1 source)CONTACT W/AND (SUSP) EXPOS COVID-19; Translations: [CONTACT W/AND (SUSP) EXPOS COVID-19]Onset: 51-33-1222Vsjxdapimmqb (1 source)Cough R05.9 Results Test NameValueInterpretationReference RangeFacilityBasophils Auto (Bld) [#/Vol] Ordered By: Charbel Rodriguez on 35-52-1252Hvskwcsxi (Bld) [#/Vol]Automated basophil count0.0-0.2FAdena Regional Medical CenterBasophils/100 WBC Auto (Bld)Ordered By: Charbel Rodriguez on 07-03-8130Zxyqxhbtt/100 WBC (Bld)Automated basophil %. [facility] SystemComplete Blood Count Auto DiffOrdered By: Charbel Rodriguez on 45-99-1013Nbttcrind (Bld) [#/Vol]0.0 10*3/uL0.0-0.2FAdena Regional Medical CenterComment on above:Result Comment: PERFORMED BY: [facility] [place] [id number] PATHOLOGIST [employer]ARM [employer] PRASANNA MANRIQUE M.D.Performed By: #### CBC ####[place] [id number] USABasophils/100 WBC (Bld)0.2 %. [facility] SystemComment on above:Performed By: #### CBC ####[place] [address] [place] Eosinophils (Bld) [#/Vol]0.1 10*3/uL0.0-0.45[facility] Comment on above:Performed By: #### CBC ####[place] [address] USAEosinophils/100 WBC (Bld)1.1 %.[facility] SystemComment on above:Performed By: #### CBC ####[place] [address] USAErythrocyte distribution width (RBC) [Ratio]14.1 %11.9-15.3FAdena Regional Medical Center Comment on above:Performed By: #### CBC ####[place] [id number] USAHematocrit (Bld) [Volume fraction]38.3 % 34.0-46.4FAdena Regional Medical CenterComment on above:Performed By: #### CBC ####[place] [id number] [place] Hemoglobin (Bld) [Mass/Vol]12.9 g/dL11.8-15.4FAdena Regional Medical Center Comment on above:Performed By: #### CBC ####[place] [id number] USALymphocytes (Bld) [#/Vol]3.1 10*3/uL1.00-4.8 [facility] SystemComment on above:Performed By: #### CBC ####[place] [id number] [place] Lymphocytes/100 WBC (Bld)43.9 %.[facility] SystemComment on above:Performed By: #### CBC ####[address] [address] [facility] [place] [place] (RBC) [Entitic mass]30.0 pg24.7-34.3FAdena Regional Medical CenterComment on above:Performed By: #### CBC ####[address] [address] [facility] [place] [place] (RBC) [Entitic vol]89.2 gY92-307SvmddxyuqOhio State Health SystemComment on above:Performed By: #### CBC ####[address] [address] USAMonocytes (Bld) [#/Vol]0.4 10*3/uL0.0-0.8[facility] Comment on above:Performed By: #### CBC ####[address] [address] USAMonocytes/100 WBC (Bld)6.1 %.[facility] SystemComment on above:Performed By: #### CBC ####[address] [address] USANeutrophils (Bld) [#/Vol]3.5 10*3/uL1.8-7.7FAdena Regional Medical CenterComment on above: Performed By: #### CBC ####[address] [address] USANeutrophils/100 WBC (Bld)48.7 %.[facility] SystemComment on above:Performed By: #### CBC ####[address] [address] USAPlatelet mean volume (Bld) [Entitic vol]8.0 fL6.3-10.7FAdena Regional Medical CenterComment on above: Performed By: #### CBC ####[address] [address] USAPlatelets (Bld) [#/Vol]392 10*3/fY375-799HasglhejyOhio State Health SystemComment on above:Performed By: #### CBC ####[place] [address] USARBC (Bld) [#/Vol]4.30 10*6/uL3.60-5.00[facility] SystemComment on above:Performed By: #### CBC ####[place] [address] USAWBC (Bld) [#/Vol]7.1 10*3/uL3.8-11.6FAdena Regional Medical CenterComment on above:Performed By: #### CBC ####[place] [address] USAComplete Blood Count Auto Diffon 33-82-7513Ktrr Corpuscular HGB Conc33.7 g/eZHssliy44.0-35.0[facility] Physician GroupComment on above:Performed By: #### CBC ####[place] [address] USANRBC%0.1 /100{WBC}Normal0-0.5[facility] Physician [facility] HospitalComment on above:Performed By: #### CBC ####[place] [address] USAEosinophils Auto (Bld) [#/Vol]Ordered By: Charbel Rodriguez on 16-79-8239Cehfcnvjzhn (Bld) [#/Vol]Automated eosinophil count0.0-0.45[facility] SystemEosinophils/100 WBC Auto (Bld) Ordered By: Charbel Rodriguez on 56-85-3381Hjzlemnuyeg/100 WBC (Bld)Automated eosinophil %.[facility] SystemErythrocyte distribution width Auto (RBC) [Ratio]Ordered By: Charbel Rodriguez on 01-99-3296Sazttovyzxf distribution width (RBC) [Ratio]Erythrocyte distribution width [Ratio] by Automated count 11.9-15.3FAdena Regional Medical CenterHematocrit Auto (Bld) [Volume fraction]Ordered By: Charbel Rodriguez on 41-16-0955Dyvvwljsik (Bld) [Volume fraction]Hematocrit [Volume Fraction] of Blood by Automated count34.0-46.4 [facility] SystemHemoglobin [Mass/volume] in BloodOrdered By: Charbel Rodriguez on 35-58-0630Mqyxesfvmp (Bld) [Mass/Vol]Hemoglobin [Mass/volume] in Blood11.8-15.4FAdena Regional Medical CenterLeukocytes [#/volume] corrected for nucleated erythrocytes in Blood by Automated counOrdered By: Charbel Rodriguez on 95-69-3985BEX corrected for nucl RBC Auto (Bld) [#/Vol]Leukocytes [#/volume] corrected for nucleated erythrocytes in Blood by Automated coun3.8-11.6FAdena Regional Medical CenterWBC corrected for nucl RBC Auto (Bld) [#/Vol]7.1 10*3/uL 3.8-11.6FAdena Regional Medical CenterLymphocytes Auto (Bld) [#/Vol]Ordered By: Charbel Rodriguez on 87-91-0491Azrfwwefyll (Bld) [#/Vol]Lymphocytes [#/volume] in Blood by Automated count1.00-4.8[facility] Lymphocytes/100 WBC Auto (Bld)Ordered By: Charbel Rodriguez on 03-18-2025 Lymphocytes/100 WBC (Bld)Lymphocytes/100 leukocytes in Blood by Automated count. [facility] SystemMCH Auto (RBC) [Entitic mass]Ordered By: Charbel Rodriguez on 02-99-1598MXB (RBC) [Entitic mass]MCH [Entitic mass] by Automated count24.7-34.3FAdena Regional Medical CenterMCHC Auto (RBC) [Mass/Vol]Ordered By: Charbel Rodriguez on 29-26-9554MTWK (RBC) [Mass/Vol]MCHC [Mass/volume] by Automated count32.0-35.0J.[facility]. Ruby Memorial HospitalHC (RBC) [Mass/Vol] 33.7 g/dL32.0-35.0[facility] SystemMCV Auto (RBC) [Entitic vol] Ordered By: Charbel Rodriguez on 36-45-6336XJB (RBC) [Entitic vol]MCV [Entitic volume] by Automated elrgn16-495WshbbbirdOhio State Health SystemMonocytes Auto (Bld) [#/Vol]Ordered By: Charbel Rodriguez on 16-64-7303Yphwihdde (Bld) [#/Vol] Automated blood monocyte count0.0-0.8[facility] Monocytes/100 WBC Auto (Bld)Ordered By: Charbel Rodriguez on 91-56-0134Xjgssvfjw/100 WBC (Bld)Automated monocyte %.[facility] SystemNeutrophils Auto (Bld) [#/Vol]Ordered By: Charbel Rodriguez on 96-55-2485Vdmsxjynwdj (Bld) [#/Vol] Neutrophils [#/volume] in Blood by Automated count1.8-7.7FAdena Regional Medical CenterNeutrophils/100 WBC Auto (Bld)Ordered By: Charbel Rodriguez on 38-56-0009Sgbdlltthuv/100 WBC (Bld)Automated neutrophil %.[facility] SystemNucleated erythrocytes [Presence] in Blood by Automated count Ordered By: Charbel Rodriguez on 99-56-0043Eyoqotoxm RBC Auto Ql (Bld)Nucleated erythrocytes [Presence] in Blood by Automated count0-0.5FAdena Regional Medical CenterNucleated RBC Auto Ql (Bld)0.1 /100{WBC}0-0.5FAdena Regional Medical CenterPlatelet mean volume Auto (Bld) [Entitic vol]Ordered By: Charbel Rodriguez on 75-02-1686Qflzduac mean volume (Bld) [Entitic vol]Platelet mean volume [Entitic volume] in Blood by Automated count6.3-10.7FAdena Regional Medical CenterPlatelets Auto (Bld) [#/Vol]Ordered By: Charbel Rodriguez on 03-18-2025 Platelets (Bld) [#/Vol]Platelets [#/volume] in Blood by Automated iibzf629-695 [facility] SystemRBC Auto (Bld) [#/Vol]Ordered By: Charbel Rodriguez on 24-96-8159HUO (Bld) [#/Vol]Erythrocytes [#/volume] in Blood by Automated count3.60-5.00[facility] SystemWBC Auto (Bld) [#/Vol]Ordered By: Charbel Rodriguez on 58-97-0072LMS (Bld) [#/Vol]Leukocytes [#/volume] in Blood by Automated count3.8-11.6Fire[facility] Medical CenterUS gall bladderon 33-65-8014IZ gall bladderMCCULLOUGH-[facility] Main [address] [address] Ultrasound Report Signed Patient: Edith Wells MR#: [id number] : 1995 Acct:[id number] Age/Sex: 29 / F ADM Date: 01/11/25 Loc: UL Room: Type: REG CLI Attending Dr: Charbel Rodriguez DO Ordering Provider: Charbel Rodriguez DO Date of Service: 01/11/25 US/US gall bladder: R11.2 - Nausea with vomiting, unspecified Copies to: Charbel Rodriguez DO LIMITED ABDOMINAL ULTRASOUND: CLINICAL HISTORY: Nausea and vomiting. COMPARISON: None TECHNIQUE: Grayscale and color Doppler images of the right upper quadrant organs were obtained. FINDINGS: Pancreas: Visualized portions appear unremarkable. Liver: Unremarkable. Gallbladder: Unremarkable. CBD: 2.6 mm. US/US gall bladder IMPRESSION: NO ACUTE PROCESS. . Impression dictated by: Shivam Russo Jr., DEsterOEster01/11/2025 12:21 PM Dictation Location: [place] [address] Tech: Kelsie Gimenez Transcribed By: ERMELINDA 01/11/25 1221 Dictated By: Shivam Russo Jr, DO 01/11/25 1220 Signed By: 01/11/[address] [place] [address] Physician GroupX-ray reportOrdered By: Shivam Russo on 02-66-9797Hauqw [facility] Main [address] [address] XRay Report Signed Patient: Edith Wells MR#: [id number] : 1995 Acct:[id number] Age/Sex: 29 / F ADM Date: 5 Loc: UL Room: Type: REG CLI Attending Dr: Charbel Rodriguez DO Copies to: Charbel Rodriguez DO~ Ordering Provider: Charbel Rodriguez DO Date of Service: 01/11/25 XR/XR acute abdomen series: R11.2 - Nausea with vomiting, unspecified ACUTE ABDOMEN SERIES WITH PA CHEST : CLINICAL HISTORY: Nausea, intermittent abdominal pain for months. COMPARISON: None 1 view Chest: Heart normal in size. Lungs are clear. No free air. 2 view Abd: No bowel obstruction or free air. Osseous structures appear grossly intact. Partial sacralization of the L5 vertebral body on the left. XR/XR acute abdomen series IMPRESSION: NO ACUTE PROCESS. Impression dictated by: Shivam Russo Jr., D.O.01/11/2025 1:28 PM Dictation Location: RADIO-PC-22 Transcribed By: ERMELINDA 01/11/25 1328 Dictated By: Shivam Russo Jr, DO 01/11/25 1327 Signed By: 01/11/25 1328 [facility] SystemXR acute abdomen serieson 99-47-0316QM acute abdomen seriesMCCULLOUGH-[facility] Main [place] [address] [place] [address] XRay Report Signed Patient: Edith Wells MR#: [id number] : 1995 Acct:[id number] Age/Sex: 29 / F ADM Date: 01/11/25 Loc: Room: Type: [facility] Attending Dr: Charbel Rodriguez DO Copies to: Charbel Rodriguez DO Ordering Provider: Charbel Rodriguez DO Date of Service: 01/11/25 XR/XR acute abdomen series: R11.2 - Nausea with vomiting, unspecified ACUTE ABDOMEN SERIES WITH PA CHEST : CLINICAL HISTORY: Nausea, intermittent abdominal pain for months. COMPARISON: None 1 view Chest: Heart normal in size. Lungs are clear. No free air. 2 view Abd: No bowel obstruction or free air. Osseous structures appear grossly intact. Partial sacralization of the L5 vertebral body on the left. XR/XR acute abdomen series IMPRESSION: NO ACUTE PROCESS. Impression dictated by: Shivam Russo Jr., D.O.01/11/2025 1:28 PM Dictation Location: RADIO-PC-22 Transcribed By: ERMELINDA 01/11/25 1328 Dictated By: Shivam Russo Jr, DO 01/11/25 1327 Signed By: 01/11/25 1328[facility] Physician NijtyI3R with Estimated Average Gluon 09-26-1310Ltwwkrw [Mass/Vol]108 mg/dLNormalThSt. Luke's Magic [facility] Physician GroupComment on above:Result Comment: PERFORMED BY: [facility] [address] [place] [address] PATHOLOGIST [employer]ARM [employer] PRASANNA MANRIQUE M.D.Performed By: #### A1C WTH eA, FE and TIBC, UA, LIPID, CBC, CMP, TSH3, GARIMA ####[place] [id number] [address]#### INSULIN ####[facility] ,HbA1c (Bld) [Mass fraction]5.4 %Normal4.3-5.6ThSt. Luke's Magic [facility] Center Physician GroupComment on above: Result Comment: Increased risk for diabetes: 5.7 - 6.4 diabetes: >6.4 glycemic control for adults with diabetes: <7.0Performed By: #### A1C WTH eA, FE and TIBC, UA, LIPID, CBC, CMP, TSH3, GARIMA ####[address]#### INSULIN ####[facility] ,Alanine aminotransferase [Enzymatic activity/volume] in Serum or PlasmaOrdered By: Charbel Rodriguez on 81-66-6353IHP [Catalytic activity/Vol]Alanine aminotransferase [Enzymatic activity/volume] in Serum or Plasma7-52[facility] SystemAlbumin [Mass/volume] in Serum or Plasma by Bromocresol green (BCG) dye binding methoOrdered By: Charbel Rodriguez on 33-69-2375Mgwospz BCG dye [Mass/Vol] Albumin [Mass/volume] in Serum or Plasma by Bromocresol green (BCG) dye binding metho3.5-5.7FAdena Regional Medical CenterAlkaline phosphatase [Enzymatic activity/volume] in Serum or PlasmaOrdered By: Charbel Rodriguez on 42-02-0291APS [Catalytic activity/Vol]Alkaline phosphatase [Enzymatic activity/volume] in Serum or Eszatm47-875LpdrwpibcOhio State Health SystemAppearance of UrineOrdered By: Charbel Rodriguez on 67-33-2261Ufotiecuvg (U)Urine appearanceCleUniversity Hospitals Geauga Medical CenterAspartate aminotransferase [Enzymatic activity/volume] in Serum or PlasmaOrdered By: Charbel Rodriguez on 54-01-3950RPI [Catalytic activity/Vol]Aspartate aminotransferase [Enzymatic activity/volume] in Serum or HdvilaDdn43-32HmuttmijdOhio State Health SystemBasophils Auto (Bld) [#/Vol] Ordered By: Charbel Rodriguez on 69-80-4823Obrdkgfhk (Bld) [#/Vol]Automated basophil count0.0-0.2FAdena Regional Medical CenterBasophils/100 WBC Auto (Bld)Ordered By: Charbel Rodriguez on 80-68-0240Depjahoxc/100 WBC (Bld)Automated basophil %. [facility] SystemBilirubin Test strip Ql (U)Ordered By: Charbel Rodriguez on 30-32-2625Wrdghoend Ql (U)Bilirubin.total [Presence] in Urine by Test stripNegativeOhio State Health SystemBilirubin.total [Mass/volume] in Serum or PlasmaOrdered By: Charbel Rodriguez on 45-69-6711Ukzegjkyr [Mass/Vol] Bilirubin.total [Mass/volume] in Serum or Plasma0.3-1.0[facility] SystemBlood estimated average glucose determination by estimation from glycated hemoglobinOrdered By: Charbel Rodriguez on 29-14-0623Uzcwvpk glucose Estimated from glycated hemoglobin (d) [Mass/Vol]Glucose mean value [Mass/volume] in Blood Estimated from glycated hemoglobinOhio State Health SystemCalcium [Mass/volume] in Serum or PlasmaOrdered By: Charbel Rodriguez on 71-52-9837Ogozevm [Mass/Vol]Calcium [Mass/volume] in Serum or Plasma8.6-10.3 [facility] SystemCarbon dioxide, total [Moles/volume] in Serum or PlasmaOrdered By: Charbel Rodriguez on 87-60-8254OM3 [Moles/Vol]Carbon dioxide, total [Moles/volume] in Serum or Rgnkaq48.0-31.0[facility] SystemChloride [Moles/volume] in Serum or PlasmaOrdered By: Charbel Rodriguez on 33-16-2326Blwxyyms [Moles/Vol]Chloride [Moles/volume] in Serum or Rdzvqv21-235 [facility] SystemCholesterol [Mass/volume] in Serum or Plasma Ordered By: Charbel Rodriguez on 40-43-9200Mjguokbkhfx [Mass/Vol]Cholesterol [Mass/volume] in Serum or Ferswq367-591DqcneekqkOhio State Health SystemComment on above:Chol less than 200 mg/dl low riskChol 201-239 mg/dl borderline riskChol 240 mg/dl and greater high riskCholesterol in HDL [Mass/volume] in Serum or PlasmaOrdered By: Charbel Rodriguez on 41-95-1965Gchevsehmmg in HDL [Mass/Vol]Serum or plasma high density lipoprotein (HDL) cholesterol hetdorxocub92-28WvteqflcnOhio State Health SystemComment on above:HDL CHOL ATP-III CLASSIFICATION Cardiovascular RiskHDL > or equal to 60 mg/dL LOWHDL < 40 mg/dL HIGHCholesterol in LDL Calc [Mass/Vol]Ordered By: Charbel Rodriguez on 13-47-7742Qmucbdmndst in LDL [Mass/Vol]Cholesterol in LDL [Mass/volume] in Serum or Plasma by calculation 0-100[facility] Health SystemComment on above:LDL ATP III CLASSIFICATIONLDL less than 100 mg/dL OptimalLDL 100-129 mg/dL Near or above omtexarLEF903-288 mg/dL Borderline highLDL 160-189 mg/dL HighLDL greater than 189 mg/dL Very highCholesterol in VLDL Calc [Mass/Vol]Ordered By: Charbel Rodriguez on 11-45-6501Ziwgjkqnbzs in VLDL [Mass/Vol]Cholesterol in VLDL [Mass/volume] in Serum or Plasma by calculationOhio State Health SystemColor Auto (U) Ordered By: Charbel Rodriguez on 89-20-0257Hngah (U)Color of Urine by AutoYellow [facility] SystemComplete Blood Count Auto Diffon 01-04-2025 Basophils (Bld) [#/Vol]0.0 10*3/uLNormal0.0-0.2[facility] Comment on above:Result Comment: PERFORMED BY: [address] [address] PATHOLOGIST [employer]ARM [employer] PRASANNA MANRIQUE M.D.Performed By: #### A1C WTH eA, FE and TIBC, UA, LIPID, CBC, CMP, TSH3, GARIMA #### [address] [place] [address] [place] #### INSULIN #### [facility] ,Basophils/100 WBC (Bld)0.3 %Normal.[facility] Physician GroupComment on above:Performed By: #### A1C WTH eA, FE and TIBC, UA, LIPID, CBC, CMP, TSH3, GARIMA #### [address] #### INSULIN #### [facility] ,Eosinophils (Bld) [#/Vol]0.2 10*3/uLNormal0.0-0.45[facility] Comment on above:Performed By: #### A1C WTH eA, FE and TIBC, UA, LIPID, CBC, CMP, TSH3, GARIMA #### [address] #### INSULIN #### [facility] ,Eosinophils/100 WBC (Bld)2.3 %Normal.[facility] Physician GroupComment on above:Performed By: #### A1C WTH eA, FE and TIBC, UA, LIPID, CBC, CMP, TSH3, GARIMA #### [address] #### INSULIN #### [facility] ,Erythrocyte distribution width (RBC) [Ratio]14.2 %Fkrrpc59.9-15.3[facility] Physician GroupComment on above:Performed By: #### A1C WTH eA, FE and TIBC, UA, LIPID, CBC, CMP, TSH3, GARIMA #### [place] [address] [place] #### INSULIN #### [facility] ,Hematocrit (Bld) [Volume fraction]38.5 %Mekvas28.0-46.4[facility] Physician GroupComment on above:Performed By: #### A1C WTH eA, FE and TIBC, UA, LIPID, CBC, CMP, TSH3, GARIMA #### [place] [address] [place] #### INSULIN #### [facility] ,Hemoglobin (Bld) [Mass/Vol]12.8 g/vXDugasw44.8-15.4[facility] Physician GroupComment on above:Performed By: #### A1C WTH eA, FE and TIBC, UA, LIPID, CBC, CMP, TSH3, GARIMA #### [facility] [address] [place] [address] [place] #### INSULIN #### [facility] ,Lymphocytes (Bld) [#/Vol]3.8 10*3/uLNormal1.00-4.8[facility] Comment on above:Performed By: #### A1C WTH eA, FE and TIBC, UA, LIPID, CBC, CMP, TSH3, GARIMA #### [address] #### INSULIN #### [facility] ,Lymphocytes/100 WBC (Bld)50.4 %Normal.[facility] Physician GroupComment on above:Performed By: #### A1C WTH eA, FE and TIBC, UA, LIPID, CBC, CMP, TSH3, GARIMA #### [facility] [address] [place] [address] [place] #### INSULIN #### [facility] ,MCH (RBC) [Entitic mass]29.9 nvLaexoh09.7-34.3[facility] Comment on above:Performed By: #### A1C WTH eA, FE and TIBC, UA, LIPID, CBC, CMP, TSH3, GARIMA #### [facility] [address] [place] [address] [place] #### INSULIN #### [facility] ,MCV (RBC) [Entitic vol]90.1 xXNijqzm80-148Gww [facility] Physician GroupComment on above:Performed By: #### A1C WTH eA, FE and TIBC, UA, LIPID, CBC, CMP, TSH3, GARIMA #### [place] [address] [place] #### INSULIN #### [facility] ,Mean Corpuscular HGB Conc33.2 g/fYDnhscb14.0-35.0[facility] Comment on above:Performed By: #### A1C WTH eA, FE and TIBC, UA, LIPID, CBC, CMP, TSH3, GARIMA #### [place] [address] [place] #### INSULIN #### [facility] ,Monocytes (Bld) [#/Vol]0.5 10*3/uLNormal0.0-0.8[facility] Comment on above:Performed By: #### A1C WTH eA, FE and TIBC, UA, LIPID, CBC, CMP, TSH3, GARIMA #### [address] #### INSULIN #### [facility] ,Monocytes/100 WBC (Bld)6.5 %Normal.[facility] Physician GroupComment on above:Performed By: #### A1C WTH eA, FE and TIBC, UA, LIPID, CBC, CMP, TSH3, GARIMA #### [place] [address] [place] #### INSULIN #### [facility] ,Neutrophils (Bld) [#/Vol]3.1 10*3/uLNormal1.8-7.7[facility] Comment on above:Performed By: #### A1C WTH eA, FE and TIBC, UA, LIPID, CBC, CMP, TSH3, GARIMA #### [place] [address] [place] #### INSULIN #### [facility] ,Neutrophils/100 WBC (Bld)40.5 %Normal.[facility] Physician GroupComment on above:Performed By: #### A1C WTH eA, FE and TIBC, UA, LIPID, CBC, CMP, TSH3, GARIMA #### [place] [address] [place] #### INSULIN #### [facility] ,NRBC%0.1 /100{WBC}Normal0-0.5[facility] Physician GroupComment on above: Performed By: #### A1C WTH eA, FE and TIBC, UA, LIPID, CBC, CMP, TSH3, GARIMA #### [facility] [address] [place] [address] #### INSULIN #### [facility] ,Platelet mean volume (Bld) [Entitic vol]8.1 fLNormal6.3-10.7[facility] Physician GroupComment on above:Performed By: #### A1C WTH eA, FE and TIBC, UA, LIPID, CBC, CMP, TSH3, GARIMA #### [facility] [address] [place] [address] #### INSULIN #### [facility] ,Platelets (Bld) [#/Vol]366 10*3/bNMdrrua162-361Yld [facility] Comment on above:Performed By: #### A1C WTH eA, FE and TIBC, UA, LIPID, CBC, CMP, TSH3, GARIMA #### [facility] [address] [place] [address] [place] #### INSULIN #### [facility] ,RBC (Bld) [#/Vol]4.27 10*6/uLNormal3.60-5.00[facility] Comment on above:Performed By: #### A1C WTH eA, FE and TIBC, UA, LIPID, CBC, CMP, TSH3, GARIMA #### [facility] [address] [place] [address] [place] #### INSULIN #### [facility] ,WBC (Bld) [#/Vol]7.6 10*3/uLNormal3.8-11.6[facility] Physician GroupComment on above:Performed By: #### A1C WTH eA, FE and TIBC, UA, LIPID, CBC, CMP, TSH3, GARIMA #### [facility] [address] [place] [place] [address] #### INSULIN #### [facility] ,Comprehensive Metabolic Panelon 41-76-4306Tzuyckj [Mass/Vol]4.6 g/dLNormal 3.5-5.7[facility] Physician GroupComment on above:Performed By: #### A1C WTH eA, FE and TIBC, UA, LIPID, CBC, CMP, TSH3, GARIMA #### [facility] [address] [place] [place] [address] #### INSULIN #### [facility] ,Albumin/Globulin [Mass ratio]1.7 {ratio}NormalThe [facility] Comment on above:Performed By: #### A1C WTH eA, FE and TIBC, UA, LIPID, CBC, CMP, TSH3, GARIMA #### [facility] [address] [place] [place] [address] #### INSULIN #### [facility] ,ALP [Catalytic activity/Vol]49 U/MDciovx60-809Pws [facility] Comment on above:Performed By: #### A1C WTH eA, FE and TIBC, UA, LIPID, CBC, CMP, TSH3, GARIMA #### [facility] [address] [place] [place] [address] #### INSULIN #### [facility] ,ALT [Catalytic activity/Vol]7 U/LNormal7-52[facility] Physician GroupComment on above:Performed By: #### A1C WTH eA, FE and TIBC, UA, LIPID, CBC, CMP, TSH3, GARIMA #### [facility] [address] [place] [address] [place] #### INSULIN #### [facility] ,Anion gap [Moles/Vol]6.8 mmol/LNormal6.0-15.0[facility] Comment on above:Performed By: #### A1C WTH eA, FE and TIBC, UA, LIPID, CBC, CMP, TSH3, GARIMA #### [facility] [address] [place] [address] #### INSULIN #### [facility] ,AST [Catalytic activity/Vol]10 U/WReh15-27Qte [facility] Physician GroupComment on above:Performed By: #### A1C WTH eA, FE and TIBC, UA, LIPID, CBC, CMP, TSH3, GARIMA #### [facility] [address] [place] [address] #### INSULIN #### [facility] ,Bilirubin [Mass/Vol]0.4 mg/dLNormal0.3-1.0[facility] Physician GroupComment on above:Performed By: #### A1C WTH eA, FE and TIBC, UA, LIPID, CBC, CMP, TSH3, GARIMA #### [facility] [address] [place] [address] #### INSULIN #### [facility] ,Calcium [Mass/Vol]9.3 mg/dLNormal8.6-10.3The [facility] Physician GroupComment on above:Performed By: #### A1C WTH eA, FE and TIBC, UA, LIPID, CBC, CMP, TSH3, GARIMA #### [facility] [address] [place] [address] #### INSULIN #### [facility] ,Chloride [Moles/Vol]106 mmol/TFongkb56-499Rku [facility] Physician GroupComment on above:Performed By: #### A1C WTH eA, FE and TIBC, UA, LIPID, CBC, CMP, TSH3, GARIMA #### [facility] [address] [place] [address] [place] #### INSULIN #### [facility] ,CO2 [Moles/Vol]27.5 mmol/IPdutnm20.0-31.0The [facility] Physician GroupComment on above:Performed By: #### A1C WTH eA, FE and TIBC, UA, LIPID, CBC, CMP, TSH3, GARIMA #### [facility] [address] [place] [address] [place] #### INSULIN #### [facility] ,Creatinine [Mass/Vol]0.61 mg/dLNormal0.60-1.20[facility] Comment on above:Performed By: #### A1C WTH eA, FE and TIBC, UA, LIPID, CBC, CMP, TSH3, GARIMA #### [address] #### INSULIN #### [facility] ,GFR/1.73 sq M.predicted MDRD (S/P/Bld) [Vol rate/Area]mL/min/{1.73_m2}NormalThe [facility] Hospital Physician GroupComment on above:Performed By: #### A1C WTH eA, FE and TIBC, UA, LIPID, CBC, CMP, TSH3, GARIMA #### [address] #### INSULIN #### [facility] ,Globulin (S) [Mass/Vol]2.7 g/dLNormalThe [facility] Physician [facility] HospitalComment on above:Performed By: #### A1C WTH eA, FE and TIBC, UA, LIPID, CBC, CMP, TSH3, GARIMA #### [place] [address] [place] #### INSULIN #### [facility] ,Glucose [Mass/Vol]87 mg/iMRjbkaj03-960Cqn [facility] Physician GroupComment on above:Result Comment: Random Glucose Reference Range is dependent on time and content of last meal. Glucose of more than 200 mg/dL in a nonstressed, ambulatory subject supports the diagnosis of Diabetes Mellitus. ADA recommended reference rangePerformed By: #### A1C WTH eA, FE and TIBC, UA, LIPID, CBC, CMP, TSH3, GARIMA #### [place] [address] [place] #### INSULIN #### [facility] ,Potassium [Moles/Vol]4.3 mmol/LNormal3.5-5.1[facility] Comment on above:Performed By: #### A1C WTH eA, FE and TIBC, UA, LIPID, CBC, CMP, TSH3, GARIMA #### [facility] [address] [place] [address] [place] #### INSULIN #### [facility] ,Protein [Mass/Vol]7.3 g/dLNormal6.4-8.9The [facility] Physician GroupComment on above:Performed By: #### A1C WTH eA, FE and TIBC, UA, LIPID, CBC, CMP, TSH3, GARIMA #### [facility] [address] [place] [address] [place] #### INSULIN #### [facility] ,Sodium [Moles/Vol]136 mmol/FBvvrsf027-620Bdd [facility] Physician GroupComment on above:Performed By: #### A1C WTH eA, FE and TIBC, UA, LIPID, CBC, CMP, TSH3, GARIMA #### [facility] [address] [place] [address] [place] #### INSULIN #### [facility] ,Urea nitrogen [Mass/Vol]12 mg/dLNormal7-25The [facility] Physician GroupComment on above:Performed By: #### A1C WTH eA, FE and TIBC, UA, LIPID, CBC, CMP, TSH3, GARIMA #### [address] #### INSULIN #### [facility] ,Creatinine [Mass/volume] in Serum or PlasmaOrdered By: Charbel Rodriguez on 05-42-7047Hvvatntszm [Mass/Vol]Creatinine [Mass/volume] in Serum or Plasma 0.60-1.20[facility] SystemEosinophils Auto (Bld) [#/Vol]Ordered By: Charbel Rodriguez on 25-28-7922Fgqixvntbtm (Bld) [#/Vol]Automated eosinophil count0.0-0.45[facility] SystemEosinophils/100 WBC Auto (Bld) Ordered By: Charbel Rodriguez on 68-28-3696Buvqkgdeevq/100 WBC (Bld)Automated eosinophil %.[facility] SystemErythrocyte distribution width Auto (RBC) [Ratio]Ordered By: Charbel Rodriguez on 15-53-6965Miqrnazhzje distribution width (RBC) [Ratio]Erythrocyte distribution width [Ratio] by Automated count 11.9-15.3FAdena Regional Medical CenterFerritinon 78-76-2235Luyvubkg [Mass/Vol]18.4 ng/yBBoknpb49.0-306.8The [facility] Physician GroupComment on above:Performed By: #### A1C WTH eA, FE and TIBC, UA, LIPID, CBC, CMP, TSH3, GARIMA #### [facility] [address] #### INSULIN #### [facility] ,Ferritin [Mass/volume] in Serum or PlasmaOrdered By: Charbel Rodriguez on 01-04-2025 Ferritin [Mass/Vol]Ferritin [Mass/volume] in Serum or Nuvjpr16.0-306.8[facility] Health SystemGlobulin Calc (S) [Mass/Vol]Ordered By: Charbel Rodriguez on 59-70-8013Ybhhrbip (S) [Mass/Vol]Serum globulin measurement by calculation (mass/volume)[facility] SystemGlucose [Mass/volume] in Serum or PlasmaOrdered By: Charbel Rodriguez on 34-79-9939Vqgosfc [Mass/Vol]Glucose [Mass/volume] in Serum or Yxrukp21-002HdpewvrmvOhio State Health SystemComment on above:ADA recommended reference rangeRandom Glucose Reference Range is dependent on time and content of last meal. Glucose of more than 200 mg/dL in a nonstressed, ambulatory subject supports the diagnosisof Diabetes Mellitus. Glucose [Mass/volume] in Urine by Test stripOrdered By: Charbel Rodriguez on 99-51-3078Goieswv Test strip (U) [Mass/Vol]Glucose [Mass/volume] in Urine by Test stripNormalOhio State Health SystemHematocrit Auto (Bld) [Volume fraction]Ordered By: Charbel Rodriguez on 57-68-6982Qfnbiunspp (Bld) [Volume fraction]Hematocrit [Volume Fraction] of Blood by Automated count34.0-46.4 [facility] SystemHemoglobin A1c/Hemoglobin.total in BloodOrdered By: Charbel Rodriguez on 34-57-6194UnN9z (Bld) [Mass fraction]Hemoglobin A1c percentage4.3-5.6FAdena Regional Medical CenterComment on above:Increased risk for diabetes: 5.7 - 6.4diabetes: >6.4glycemic control for adults with diabetes: <7.0Hemoglobin Test strip Ql (U)Ordered By: Charbel Rodriguez on 85-75-7726Kwxlhlmntg Ql (U)Hemoglobin [Presence] in Urine by Test stripNegative [facility] SystemHemoglobin [Mass/volume] in BloodOrdered By: Charbel Rodriguez on 99-62-8735Rcmkmklvzl (Bld) [Mass/Vol]Hemoglobin [Mass/volume] in Blood11.8-15.4FAdena Regional Medical CenterInsulinon 27-82-3760Xqrfbto34.5 u[iU]/mLNormal2.6-24.9The [facility] Physician GroupComment on above:Result Comment: Performed at: - [facility] [place] [id number] Audio Video Technician: Frankie Aguero PhD, Phone: [phone] PERFORMED BY: [place] [address] PATHOLOGIST [employer]ARM [employer] PRASANNA MANRIQUE M.D.Performed By: #### A1C WTH eA, FE and TIBC, UA, LIPID, CBC, CMP, TSH3, GARIMA ####[facility] [address]#### INSULIN ####[facility] ,Iron [Mass/volume] in Serum or PlasmaOrdered By: Charbel Rodriguez on 87-12-1979Xtpk [Mass/Vol]Iron [Mass/volume] in Serum or Qvecsu71-385SkrcghzlaOhio State Health SystemIron and TIBC Profileon 01-04-2025% Iron Sdwtnfpxnk69.9 %Fuk82-44Tqv [facility] Physician GroupComment on above:Performed By: #### A1C WTH eA, FE and TIBC, UA, LIPID, CBC, CMP, TSH3, GARIMA #### [facility] [address] [place] [address] [place] #### INSULIN #### [facility] ,Iron [Mass/Vol]74 ug/yNXlgzwk81-014Kxm [facility] Physician GroupComment on above:Performed By: #### A1C WTH eA, FE and TIBC, UA, LIPID, CBC, CMP, TSH3, GARIMA #### [facility] [address] [place] [address] [place] #### INSULIN #### [facility] ,Total Iron Binding Lvvkjkxt394 ug/iTPjxbtf439-486Hup [facility] Comment on above:Performed By: #### A1C WTH eA, FE and TIBC, UA, LIPID, CBC, CMP, TSH3, GARIMA #### [facility] [address] [place] [address] [place] #### INSULIN #### [facility] ,Transferrin [Mass/Vol]280 mg/oTEssuze273-693Qpi [facility] Comment on above:Performed By: #### A1C WTH eA, FE and TIBC, UA, LIPID, CBC, CMP, TSH3, GARIMA #### [facility] [address] [place] [address] [place] #### INSULIN #### [facility] ,Ketones Test strip Ql (U)Ordered By: Charbel Rodriguez on 02-60-7867Qrnomvs Ql (U) Ketones [Presence] in Urine by Test stripNegOhioHealth Grady Memorial HospitalLeukocyte esterase [Presence] in Urine by Test stripOrdered By: Charbel Rodriguez on 96-13-3756Eypqkjcly esterase Test strip Ql (U)Leukocyte esterase [Presence] in Urine by Test stripNegOhioHealth Grady Memorial Hospital Leukocytes [#/volume] corrected for nucleated erythrocytes in Blood by Automated counOrdered By: Charbel Rordiguez on 77-55-9708VTA corrected for nucl RBC Auto (Bld) [#/Vol]Leukocytes [#/volume] corrected for nucleated erythrocytes in Blood by Automated coun3.8-11.6FAdena Regional Medical CenterLipid Panelon 01-04-2025 Cholesterol [Mass/Vol]163 mg/pOKtywny638-050Yso [facility] Physician GroupComment on above:Result Comment: Chol less than 200 mg/dl low risk Chol 201-239 mg/dl borderline risk Chol 240 mg/dl and greater high riskPerformed By: #### A1C WTH eA, FE and TIBC, UA, LIPID, CBC, CMP, TSH3, GARIMA #### [place] [address] [place] #### INSULIN #### [facility] ,Cholesterol in HDL [Mass/Vol]43 mg/pYQeucwu82-38Ltx [facility] Comment on above:Result Comment: HDL CHOL ATP-III CLASSIFICATION Cardiovascular Risk HDL > or equal to 60 mg/dL LOW HDL < 40 mg/dL HIGHPerformed By: #### A1C WTH eA, FE and TIBC, UA, LIPID, CBC, CMP, TSH3, GARIMA #### [place] [address] [place] #### INSULIN #### [facility] ,Cholesterol.total/Cholesterol in HDL [Mass ratio]3.8 {ratio}Normal<5.0The [facility] Behavioral HealthcareComment on above:Performed By: #### A1C WTH eA, FE and TIBC, UA, LIPID, CBC, CMP, TSH3, GARIMA #### [place] [address] [place] #### INSULIN #### [facility] ,LDL Cholesterol,Gwyqusvhyf29 mg/dLNormal0-100The [facility] Comment on above:Result Comment: LDL ATP III CLASSIFICATION LDL less than 100 mg/dL Optimal LDL 100-129 mg/dL Near or above optimal LDL 130-159 mg/dL Borderline high LDL 160-189 mg/dL High LDL greater than 189 mg/dL Very highPerformed By: #### A1C WTH eA, FE and TIBC, UA, LIPID, CBC, CMP, TSH3, GARIMA #### [place] [address] [place] #### INSULIN #### [facility] ,Triglyceride w/Rhuoag768 mg/dLHigh0-149The [facility] Physician GroupComment on above:Result Comment: TRIG ATP III CLASSIFICATION TRIG less than 150 mg/dL Normal TRIG 150-199 mg/dL Borderline high TRIG 200-500 mg/dL High TRIG greater than 500 mg/dL Very high Standard traceable to the Center for Disease Conrtrol and Prevention (CDC) test method.Performed By: #### A1C WTH eA, FE and TIBC, UA, LIPID, CBC, CMP, TSH3, GARIMA #### [facility] [address] [place] [address] [place] #### INSULIN #### [facility] ,VLDL TAIQRQVYXUH42 mg/dLNoFormerly [facility] Physician GroupComment on above: Performed By: #### A1C WTH eA, FE and TIBC, UA, LIPID, CBC, CMP, TSH3, GARIMA #### [facility] [address] [place] [address] [place] #### INSULIN #### [facility] ,Lymphocytes Auto (Bld) [#/Vol]Ordered By: Charbel Rodriguez on 17-99-3453Isximlvthhm (Bld) [#/Vol]Lymphocytes [#/volume] in Blood by Automated count1.00-4.8 [facility] SystemLymphocytes/100 WBC Auto (Bld)Ordered By: Charbel Rodriguez on 27-25-1202Ebdxudcauen/100 WBC (Bld)Lymphocytes/100 leukocytes in Blood by Automated count.[facility] HospitalH Auto (RBC) [Entitic mass]Ordered By: Charbel Rodriguez on 46-58-2911MZC (RBC) [Entitic mass]MCH [Entitic mass] by Automated count24.7-34.3FAdena Regional Medical CenterMCHC Auto (RBC) [Mass/Vol]Ordered By: Charbel Rodriguez on 31-03-7322OPWG (RBC) [Mass/Vol] MCHC [Mass/volume] by Automated count32.0-35.0[facility] MCV Auto (RBC) [Entitic vol]Ordered By: Charbel Rodriguez on 64-23-3207UCG (RBC) [Entitic vol]MCV [Entitic volume] by Automated -764KujtsznugOhio State Health SystemMonocytes Auto (Bld) [#/Vol]Ordered By: Charbel Rodriguez on 01-04-2025 Monocytes (Bld) [#/Vol]Automated blood monocyte count0.0-0.8[facility] SystemMonocytes/100 WBC Auto (Bld)Ordered By: Charbel Rodriguez on 01-04-2025 Monocytes/100 WBC (Bld)Automated monocyte %.[facility] Neutrophils Auto (Bld) [#/Vol]Ordered By: Charbel Rodriguez on 50-97-3105Nimynqppqqc (Bld) [#/Vol]Neutrophils [#/volume] in Blood by Automated count1.8-7.7FAdena Regional Medical CenterNeutrophils/100 WBC Auto (Bld)Ordered By: Charbel Rodriguez on 54-56-1871Vqzbmoqbopn/100 WBC (Bld)Automated neutrophil %.[facility] SystemNitrite Test strip Ql (U)Ordered By: Charbel Rodriguez on 01-04-2025 Nitrite Ql (U)Nitrite [Presence] in Urine by Test stripNegativeOhio State Health SystemNo Panel InformationOrdered By: Charbel Rodriguez on 90-78-5884Fbtvbhasp GFR (CKD-EPI)> 60.0 mL/MinOhio State Health System Pharmacy Creatinine Clearance (ChemN/[facility] Medical CenterNucleated erythrocytes [Presence] in Blood by Automated countOrdered By: Charbel Rodriguez on 80-10-1328Runqfutbx RBC Auto Ql (Bld)Nucleated erythrocytes [Presence] in Blood by Automated count0-0.5FAdena Regional Medical CenterPlatelet mean volume Auto (Bld) [Entitic vol]Ordered By: Charbel Rodriguez on 52-59-8136Vzyxkpdr mean volume (Bld) [Entitic vol]Platelet mean volume [Entitic volume] in Blood by Automated count6.3-10.7FAdena Regional Medical CenterPlatelets Auto (Bld) [#/Vol]Ordered By: Charbel Rodriguez on 74-29-8211Xfkzlscsq (Bld) [#/Vol]Platelets [#/volume] in Blood by Automated -288LtuesuugzOhio State Health System Potassium [Moles/volume] in Serum or PlasmaOrdered By: Charbel Rodriguez on 22-31-4298Jjzjaeqnr [Moles/Vol]Potassium [Moles/volume] in Serum or Plasma 3.5-5.1FAdena Regional Medical CenterProtein Test strip (U) [Mass/Vol]Ordered By: Charbel Rodriguez on 10-58-0955Cqwjsii (U) [Mass/Vol]Protein [Mass/volume] in Urine by Test stripNegativeOhio State Health SystemProtein [Mass/volume] in Serum or PlasmaOrdered By: Charbel Rodriguez on 59-37-8915Fjxcepy [Mass/Vol]Protein [Mass/volume] in Serum or Plasma6.4-8.9[facility] Health SystemRBC Auto (Bld) [#/Vol]Ordered By: Charbel Rodriguez on 41-75-7291YJT (Bld) [#/Vol]Erythrocytes [#/volume] in Blood by Automated count3.60-5.00 [facility] Hamiltonerum or plasma albumin/globulin mass ratio Ordered By: Charbel Rodriguez on 53-81-4654Bdjpkxa/Globulin [Mass ratio]Serum or plasma albumin/globulin mass ratioKettering Health Hamiltonerum or plasma anion gap determinationOrdered By: Charbel Rodriguez on 41-53-4064Kzzwv gap [Moles/Vol]Serum or plasma anion gap determination6.0-15.0[facility] Health Hamiltonerum or plasma insulin measurement (units/volume)Ordered By: Charbel Rodriguez on 04-26-0125Dcxltlc QnSerum or plasma insulin measurement (units/volume)2.6-24.9[facility] Health SystemComment on above: Performed at: [facility] Lab[address] [id number] Director: Frankie Aguero PhD, Phone: [phone] or plasma iron binding capacity measurement (mass/volume)Ordered By: Charbel Rodriguez on 66-39-4883Pqjg binding capacity [Mass/Vol]Iron binding capacity [Mass/volume] in Serum or Ruvksl950-271CevbcdihwKettering Health Hamiltonerum or plasma iron saturation measurement (mass fraction)Ordered By: Charbel Rodriguez on 16-72-8053Oaaz saturation [Mass fraction]Iron saturation [Mass Fraction] in Serum or HpymukJta88-85 [facility] Hamiltonerum or plasma total cholesterol/high density lipoprotein (HDL) cholesterol mass ratOrdered By: Charbel Rodriguez on 01-04-2025 Cholesterol.total/Cholesterol in HDL [Mass ratio]Serum or plasma total cholesterol/high density lipoprotein (HDL) cholesterol mass rat<5.0[facility] Health Hamiltonodium [Moles/volume] in Serum or PlasmaOrdered By: Charbel Rodriguez on 24-13-0927Zhqumt [Moles/Vol]Sodium [Moles/volume] in Serum or Plasma 136-145K[facility] Health Hamiltonpecific gravity Test strip (U) [Rel density]Ordered By: Charbel Rodriguez on 56-35-2418Ptckqldq gravity (U) [Rel density] Specific gravity of Urine by Test strip1.001-1.030[facility] Health SystemThyroid Stimulating Hormoneon 34-71-8041QZP Qn1.01 m[IU]/LNormal0.45-5.33 [facility] Physician GroupComment on above:Result Comment: PERFORMED BY: [place] [address] PATHOLOGIST FARM LAB[employer]ER PRASANNA MANRIQUE M.D.Performed By: #### A1C WTH eA, FE and TIBC, UA, LIPID, CBC, CMP, TSH3, GARIMA #### [address] #### INSULIN #### [facility] ,Thyrotropin [Units/volume] in Serum or PlasmaOrdered By: Charbel Rodriguez on 72-33-5721RDM QnThyrotropin [Units/volume] in Serum or Plasma0.45-5.33[facility] Health SystemTransferrin [Mass/volume] in Serum or PlasmaOrdered By: Charbel Rodriguez on 19-89-1183Ofqxijifsmu [Mass/Vol]Transferrin [Mass/volume] in Serum or Aaoktz786-967LbfqcoxmbOhio State Health SystemTriglyceride [Mass/volume] in Serum or PlasmaOrdered By: Charbel Rodriguez on 01-04-2025 Triglyceride [Mass/Vol]Triglyceride [Mass/volume] in Serum or PlasmaHigh0-149 [facility] SystemComment on above:TRIG ATP III CLASSIFICATIONTRIG less than 150 mg/dL NormalTRIG 150-199 mg/dL Borderline highTRIG 200-500 mg/dL High TRIG greater than 500 mg/dL Very highStandard traceable to the Center for Disease Conrtrol and Prevention (CDC) test method. Urea nitrogen [Mass/volume] in Serum or PlasmaOrdered By: Charbel Rodriguez on 02-76-3136Okrp nitrogen [Mass/Vol]Urea nitrogen [Mass/volume] in Serum or Plasma 05-21[facility] Health SystemUrinalysison 51-43-0818Cdelkryxsh (U)Clear NormalClearThe [facility] Hospital Physician GroupComment on above:Order Comment: Name Collection Type:: Clean-Voided MidstreamPerformed By: #### A1C WTH eA, FE and TIBC, UA, LIPID, CBC, CMP, TSH3, GARIMA #### [place] [address] [place] #### INSULIN #### [facility] ,Bilirubin,UrineNegativeNormalNegativeHca Florida [facility] Physician GroupComment on above:Order Comment: Name Collection Type:: Clean-Voided MidstreamPerformed By: #### A1C WTH eA, FE and TIBC, UA, LIPID, CBC, CMP, TSH3, GARIMA #### [place] [address] [place] #### INSULIN #### [facility] ,Color (U)Light-YellowNormalYellowHca Florida [facility]le[facility] Hospital Physician GroupComment on above: Order Comment: Name Collection Type:: Clean-Voided MidstreamPerformed By: #### A1C WTH eA, FE and TIBC, UA, LIPID, CBC, CMP, TSH3, GARIMA #### [place] [address] [place] #### INSULIN #### [facility] ,Glucose Ql (U)NormalNormalNormPalm Springs General Hospital Physician GroupComment on above: Order Comment: Name Collection Type:: Clean-Voided MidstreamPerformed By: #### A1C WTH eA, FE and TIBC, UA, LIPID, CBC, CMP, TSH3, GARIMA #### [place] [address] [place] #### INSULIN #### [facility] ,Ketones Ql (U)NegativeNormalNegativeThe [facility] Physician GroupComment on above:Order Comment: Name Collection Type:: Clean-Voided MidstreamPerformed By: #### A1C WTH eA, FE and TIBC, UA, LIPID, CBC, CMP, TSH3, GARIMA #### [address] #### INSULIN #### [facility] ,Leukocyte esterase Test strip Ql (U)NegativeNormalNegativeThe [facility] Physician GroupComment on above:Order Comment: Name Collection Type:: Clean- Voided MidstreamPerformed By: #### A1C WTH eA, FE and TIBC, UA, LIPID, CBC, CMP, TSH3, GARIMA #### [address] #### INSULIN #### [facility] ,Nitrite,UrineNegativeNormalNegativeThe [facility] Physician GroupComment on above:Order Comment: Name Collection Type:: Clean-Voided MidstreamPerformed By: #### A1C WTH eA, FE and TIBC, UA, LIPID, CBC, CMP, TSH3, GARIMA #### [address] #### INSULIN #### [facility] ,Occult Blood,UrineNegativeNormalNegativeThe [facility] Physician GroupComment on above:Order Comment: Name Collection Type:: Clean-Voided MidstreamResult Comment: PERFORMED BY: [place] [address] PATHOLOGIST FARM LABORER PRASANNA MANRIQUE M.D.Performed By: #### A1C WTH eA, FE and TIBC, UA, LIPID, CBC, CMP, TSH3, GARIMA #### [address] #### INSULIN #### [facility] ,pH (U)6.5 [pH]Normal5.0-9.0The [facility] Physician GroupComment on above:Order Comment: Name Collection Type:: Clean-Voided MidstreamPerformed By: #### A1C WTH eA, FE and TIBC, UA, LIPID, CBC, CMP, TSH3, GARIMA #### [facility] [address] [place] [address] #### INSULIN #### [facility] ,Protein,UrineNegativeNormalNegativeThe [facility] Physician GroupComment on above:Order Comment: Name Collection Type:: Clean-Voided MidstreamPerformed By: #### A1C WTH eA, FE and TIBC, UA, LIPID, CBC, CMP, TSH3, GARIMA #### [facility] [address] [place] [address] #### INSULIN #### [facility] ,Specificy [place],Urine1.345Mtmqjr5.001-1.030[facility] Comment on above:Order Comment: Name Collection Type:: Clean-Voided Midstream Performed By: #### A1C WTH eA, FE and TIBC, UA, LIPID, CBC, CMP, TSH3, GARIMA #### [facility] [address] [place] [address] #### INSULIN #### [facility] ,Urobilinogen,UrineNormalNormalNormalThe [facility] Physician GroupComment on above:Order Comment: Name Collection Type:: Clean-Voided MidstreamPerformed By: #### A1C WTH eA, FE and TIBC, UA, LIPID, CBC, CMP, TSH3, GARIMA #### [facility] [address] [place] [place] [address] #### INSULIN #### [facility] ,Urobilinogen Test strip (U) [Mass/Vol]Ordered By: Charbel Rodriguez on 01-04-2025 Urobilinogen (U) [Mass/Vol]Urobilinogen [Mass/volume] in Urine by Test strip [facility] HospitalWBC Auto (Bld) [#/Vol]Ordered By: Charbel Rodriguez on 61-52-5036VRE (Bld) [#/Vol]Leukocytes [#/volume] in Blood by Automated count3.8-11.6FAdena Regional Medical CenterpH Test strip (U)Ordered By: Charbel Rodriguez on 07-96-5743tD (U)pH of Urine by Test strip5.0-9.0[facility] SystemLaboratory - Microbiology and Antimicrobial susceptibilityon 12-11-2024S. pyogenes Ag Ql (Unsp spec)NegativeKettering Health HamiltonARS-CoV-2 (COVID-19) RNA HAROLDO+probe Ql (Unsp spec) NegativeNEGATIVEOhio State Health SystemComment on above:This test has not been FDA cleared or approved, but has beenauthorized by the FDA under an Emergency Use Authorization(EUA) for use by authorized laboratories certified underIA that meet the requirements to perform moderate or highcomplexity testing. This test has been authorized only forthe detection of proteins from SARS-CoV-2, not for any otherviruses or pathogens. The emergency use of this t est isauthorized for the duration of the declaration thatcircumstances exist justifying the authorization ofemergency use of in vitro diagnostic tests for detectionand/or diagnosis of Covid-19 under section 564(b)(1) of theAct, 21 U.S.C. 360bbb-3(b)(1), unless the declaration isterminated or authorization is revoked sooner.No Panel Informationon 56-79-5932Cwmumze Influenza Type A Antigen NegativeOhio State Health SystemComment on above:Negative for Flu A protein antigen. Infection due to Flu Acannot be ruled out. Flu A antigen in the sample may bebelow the detection limit of the test.Bedside Influenza Type B AntigenNegativeOhio State Health SystemComment on above:Negative for Flu B protein antigen. Infection due to Flu Bcannot be ruled out. Flu B antigen in thesample may bebelow the detection limit of the test.Laboratory - Microbiology and Antimicrobial susceptibilityon 79-14-5696IVNH-CoV-2 (COVID-19) RNA HAROLDO+probe Ql (Unsp spec)NegativeNEGATIVEOhio State Health System Comment on above:This test has not been FDA cleared or approved, but has beenauthorized by the FDA under an Emergency Use Authorization(EUA) for use by authorized laboratories certified underCLIA that meet the requirements to perform moderate or highcomplexity testing. This test has been authorized only forthe detection of proteins from SARS-CoV-2, not for any otherviruses or pathogens. The emergency use of this test isauthorized for the duration of the declaration thatcircumstances exist justifying the authorization ofemergency use of in vitro diagnostic tests for detectionand/or diagnosis of Covid-19 under s ection 564(b)(1) of theAct, 21 U.S.C. 360bbb-3(b)(1), unless the declaration isterminated or authorization is revoked sooner.No Panel Informationon 03-37-7105Euslqhj Influenza Type A AntigenNegativeOhio State Health SystemComment on above:Negative for Flu A protein antigen. Infection due to Flu Acannot be ruled out. Flu A antigen in thesample may bebelow the detection limit of the test.Bedside Influenza Type B AntigenNegativeOhio State Health SystemComment on above:Negative for Flu B protein antigen. Infection due to Flu Bcannot be ruled out. Flu B antigen in thesample may bebelow the detection limit of the test.Laboratory - Microbiology and Antimicrobial susceptibilityon 06-24-2024S. pyogenes Ag Ql (Unsp spec)NegativeOhio State Health System SARS-CoV-2 (COVID-19) RNA HAROLDO+probe Ql (Unsp spec)NegativeNEGATIVEOhio State Health SystemComment on above:This test has not been FDA cleared or approved, but has beenauthorized by the FDA under an Emergency Use Authorization(EUA) for use by authorized laboratories certified underCLIA that meet the requirements to perform moderate or highcomplexity testing. This test has been authorized only forthe detection of proteins from SARS-CoV-2, not for any otherviruses or pathogens. The emergency use of this test isauthorized for the duration of the declaration thatcircumstances exist justifying the authoriz ation ofemergency use of in vitro diagnostic tests for detectionand/or diagnosis of Covid-19 under section 564(b)(1) of theAct, 21 U.S.C. 360bbb-3(b)(1), unless the declaration isterminated or authorization is revoked sooner.Glucose mean value [Mass/volume] in Blood Estimated from glycated hemoglobinon 05-28-2024 Average glucose Estimated from glycated hemoglobin (Bld) [Mass/Vol]111 mg/dL [facility] SystemLaboratory - Hematology and Cell countson 10-58-6881YiH7r (Bld) [Mass fraction]5.5 %4.5-6.2FAdena Regional Medical CenterComment on above:ADA RECOMMENDED LIMIT 4.0 - 6.0ADA THERAPEUTIC TARGET < 7.0ACTION SUGGESTED> 7.0Basophils Auto (Bld) [#/Vol]on 99-89-7403Zidjwkhls (Bld) [#/Vol]0.0 10 3/uL0.0-0.1FAdena Regional Medical CenterBasophils/100 WBC Auto (Bld)on 61-28-9086Hsfszgret/100 WBC (Bld)0.3 %0.2-2.0[facility] SystemEosinophils/100 WBC Auto (Bld)on 45-73-3906Dcgilwgmrwv/100 WBC (Bld)4.4 %0.9-7.0[facility] SystemErythrocyte distribution width Auto (RBC) [Ratio]on 93-87-6777Agepwcsmybr distribution width (RBC) [Ratio]14.4 %11.0-15.0[facility] SystemEstimated glomerular filtration rate (GFR) non- Americanon 04-81-7205KEP/1.73 sq M.predicted among non-blacks MDRD (S/P/Bld) [Vol rate/Area]mL/min/{1.73_m2}>=60[facility] Health SystemGlobulin Calc (S) [Mass/Vol]on 40-11-3057Medshqrh (S) [Mass/Vol]4.3 g/dL [facility] SystemHematocrit Auto (Bld) [Volume fraction]on 36-56-3325Tpxxgyeiwn (Bld) [Volume fraction]35.7 %Low36.0-48.0[facility] SystemHemoglobin [Mass/volume] in Bloodon 81-79-5143Eegvvtnust (Bld) [Mass/Vol]11.2 g/dLLow12.0-16.0[facility] SystemLaboratory - Chemistry and Chemistry - challengeon 59-82-5169Jlrntuc [Mass/Vol]2.9 g/dLLow 3.4-5.0[facility] SystemALP [Catalytic activity/Vol]88 U/L46-116 [facility] SystemALT [Catalytic activity/Vol]16 U/L14-59 [facility] SystemAST [Catalytic activity/Vol]9 U/VFin55-43 [facility] SystemBilirubin [Mass/Vol]0.1 mg/dLLow0.2-1.0 [facility] SystemCalcium [Mass/Vol]9.4 mg/dL8.5-10.1FAdena Regional Medical CenterChloride [Moles/Vol]103 mmol/N83-135YwugftezsOhio State Health SystemCO2 [Moles/Vol]28.4 mmol/L21.0-32.0[facility] SystemCreatinine [Mass/Vol]0.78 mg/dL0.55-1.02[facility] GFR/1.73 sq M.predicted MDRD (S/P/Bld) [Vol rate/Area]mL/min/{1.73_m2}>=60 [facility] SystemGlucose [Mass/Vol]96 mg/pL19-274BwqlcpjpxOhio State Health SystemLactate [Moles/Vol]0.9 mmol/L0.4-2.0[facility] SystemPotassium [Moles/Vol]4.1 mmol/L3.5-5.1FAdena Regional Medical CenterProtein [Mass/Vol]7.2 g/dL6.4-8.2FGalion Hospitalodium [Moles/Vol]140 mmol/V485-611NuzafkzauOhio State Health SystemUrea nitrogen [Mass/Vol]19.0 mg/dLHigh7.0-18.0[facility] SystemUrea nitrogen/Creatinine [Mass ratio]24.4 mg/mgOhio State Health System Laboratory - Hematology and Cell countson 06-47-2542Raismhhj granulocytes/100 WBC (Bld)0.3 %0.0-0.5FAdena Regional Medical CenterLeukocytes [#/volume] corrected for nucleated erythrocytes in Blood by Automated counon 11-28-4711XHJ corrected for nucl RBC Auto (Bld) [#/Vol]7.9 10 3/uL4.0-11.0[facility] SystemLymphocytes Auto (Bld) [#/Vol]on 90-53-9345Wydfgvffgbh (Bld) [#/Vol]3.4 10 3/uL1.2-3.8[facility] SystemLymphocytes/100 WBC Auto (Bld)on 41-23-8655Akyzrumdjej/100 WBC (Bld)42.6 %20.5-60.0[facility] HospitalH Auto (RBC) [Entitic mass]on 80-77-7974KKP (RBC) [Entitic mass]29.3 pg26.7-34.0[facility] SystemMCHC Auto (RBC) [Mass/Vol]on 45-63-2905VUDF (RBC) [Mass/Vol]31.4 g/dL29.9-35.2FAdena Regional Medical CenterMCV Auto (RBC) [Entitic vol]on 53-16-7883QET (RBC) [Entitic vol] 93.5 fL81.0-99.0[facility] SystemMonocytes Auto (Bld) [#/Vol]on 07-79-4940Zhxxvvzgu (Bld) [#/Vol]0.5 10 3/uL0.3-0.8[facility] SystemMonocytes/100 WBC Auto (Bld)on 03-01-9211Giiifhbpm/100 WBC (Bld)6.6 % 1.7-12.0[facility] SystemNeutrophils Auto (Bld) [#/Vol]on 88-23-7772Ivnkoanmdzg (Bld) [#/Vol]3.6 10 3/uL1.4-6.5FAdena Regional Medical CenterNeutrophils/100 WBC Auto (Bld)on 17-36-3049Uhewvagubcb/100 WBC (Bld)45.8 % 43.0-75.0[facility] SystemNo Panel Informationon 04-25-2024 Eosinophils # (Auto)0.4 10 3/uL0.0-0.7FAdena Regional Medical CenterImmature Granulocyte # (Auto)0.02 10 3/uL0.00-0.03[facility] Platelet mean volume Auto (Bld) [Entitic vol]on 16-11-6583Erhjdded mean volume (Bld) [Entitic vol]9.3 fLLow9.5-13.5FAdena Regional Medical CenterPlatelets Auto (Bld) [#/Vol]on 14-15-8302Mpkbhelbn (Bld) [#/Vol]458 10 3/uQQefi830-155 [facility] SystemRBC Auto (Bld) [#/Vol]on 14-98-0994LCS (Bld) [#/Vol]3.82 10 6/uLLow4.20-5.40[facility] Hamiltonerum or plasma albumin/globulin mass ratioon 83-33-4317Avqbeey/Globulin [Mass ratio]0.7 {ratio} [facility] Hamiltonerum or plasma anion gap determinationon 86-96-4433Fztqi gap [Moles/Vol]12.7 mmol/LFAdena Regional Medical Center Basophils Auto (Bld) [#/Vol]on 69-89-3218Kwofasijr (Bld) [#/Vol]0.0 10 3/uL 0.0-0.1FAdena Regional Medical CenterBasophils/100 WBC Auto (Bld)on 19-45-4097Jpigtnbcq/100 WBC (Bld)0.3 %0.2-2.0[facility] Eosinophils/100 WBC Auto (Bld)on 21-56-9460Ocxsnrhiwlc/100 WBC (Bld)1.7 %0.9-7.0 [facility] SystemErythrocyte distribution width Auto (RBC) [Ratio]on 24-87-4106Bluaovhanfv distribution width (RBC) [Ratio]14.8 %11.0-15.0 [facility] SystemHematocrit Auto (Bld) [Volume fraction]on 69-53-6521Plcpmfkctx (Bld) [Volume fraction]25.6 %Low36.0-48.0[facility] SystemHemoglobin [Mass/volume] in Bloodon 17-96-0782Lrlsqluzdx (Bld) [Mass/Vol]8.1 g/dLLow12.0-16.0[facility] SystemLaboratory - Hematology and Cell countson 00-56-9289Tyqqbeao granulocytes/100 WBC (Bld)1.0 % High0.0-0.5FAdena Regional Medical CenterLeukocytes [#/volume] corrected for nucleated erythrocytes in Blood by Automated counon 87-88-8746WRI corrected for nucl RBC Auto (Bld) [#/Vol]13.3 10 3/uLHigh4.0-11.0[facility] SystemLymphocytes Auto (Bld) [#/Vol]on 45-64-5603Xinxywfbmjh (Bld) [#/Vol]3.4 10 3/uL1.2-3.8[facility] SystemLymphocytes/100 WBC Auto (Bld)on 99-85-8649Gadozkttlma/100 WBC (Bld)25.5 %20.5-60.0[facility] HospitalH Auto (RBC) [Entitic mass]on 27-13-0637PXV (RBC) [Entitic mass]29.1 pg 26.7-34.0[facility] SystemMCHC Auto (RBC) [Mass/Vol]on 13-59-4448HEGV (RBC) [Mass/Vol]31.6 g/dL29.9-35.2FAdena Regional Medical CenterMCV Auto (RBC) [Entitic vol]on 55-02-3943YWR (RBC) [Entitic vol]92.1 fL 81.0-99.0[facility] SystemMonocytes Auto (Bld) [#/Vol]on 56-79-5740Yxunbueva (Bld) [#/Vol]1.1 10 3/uLHigh0.3-0.8[facility] SystemMonocytes/100 WBC Auto (Bld)on 07-71-2386Zugmvrpsl/100 WBC (Bld) 7.9 %1.7-12.0[facility] SystemNeutrophils Auto (Bld) [#/Vol]on 06-34-4995Dmwsvzjrgnz (Bld) [#/Vol]8.5 10 3/uLHigh1.4-6.5FAdena Regional Medical CenterNeutrophils/100 WBC Auto (Bld)on 70-84-6121Qcsperwndfj/100 WBC (Bld)63.6 %43.0-75.0[facility] SystemNo Panel Informationon 52-00-2378Htiboazubtw # (Auto)0.2 10 3/uL0.0-0.7FAdena Regional Medical CenterImmature Granulocyte # (Auto)0.13 10 3/uLHigh0.00-0.03[facility] SystemPlatelet mean volume Auto (Bld) [Entitic vol]on 54-07-8492Ducgedla mean volume (Bld) [Entitic vol]10.4 fL9.5-13.5FAdena Regional Medical Center Platelets Auto (Bld) [#/Vol]on 99-21-7429Dgddgfjwg (Bld) [#/Vol]271 10 3/uL 150-450[facility] SystemRBC Auto (Bld) [#/Vol]on 66-66-6952WQT (Bld) [#/Vol]2.78 10 6/uLLow4.20-5.40[facility] SystemBasophils Auto (Bld) [#/Vol]on 49-72-1609Ryaexdnfn (Bld) [#/Vol]0.0 10 3/uL0.0-0.1 [facility] SystemBasophils/100 WBC Auto (Bld)on 04-13-2024 Basophils/100 WBC (Bld)0.2 %0.2-2.0[facility] Buprenorphine [Presence] in Urineon 79-61-6059Htqzektusmjbx Ql (U)Negative NEGATIVEOhio State Health SystemComment on above:DRUG CLASS TEST SYSTEM CUT-OFF CONCENTRATIONS ARE ASFOLLOWS:AMP (Amphetamine): 500 ng/mLBAR (Barbitu rates): 200 ng/mLBZO (Benzodiazepines): 150 ng/mLBUP (Buprenorphine): 10 ng/mLCOC (Cocaine): 150 ng/mLmAMP (Methamphetamine): 500 ng/mLMTD (Methadone): 200 ng/mLOPI (Opiates): 100 ng/mLOXY (Oxycodone): 100 ng/mLPCP (Phencyclidine): 25 ng/mLTHC (Cannabinoids): 50 ng/mLTCA (Trycyclic Antidepressants): 300 ng/mL Eosinophils/100 WBC Auto (Bld)on 35-63-1594Nmqfivencok/100 WBC (Bld)1.2 %0.9-7.0 [facility] SystemErythrocyte distribution width Auto (RBC) [Ratio]on 54-96-8987Tpglpkqvlru distribution width (RBC) [Ratio]14.7 %11.0-15.0 [facility] SystemHematocrit Auto (Bld) [Volume fraction]on 79-51-4219Kzdkwwbzym (Bld) [Volume fraction]31.2 %Low36.0-48.0[facility] SystemHemoglobin [Mass/volume] in Bloodon 70-65-6305Pqettfliac (Bld) [Mass/Vol]10.1 g/dLLow12.0-16.0[facility] Health SystemLon 04-13-2024L Specimen: [id number] Received: 04/13/24 Status: SY Warren Num: [id number] Spec Type: Surgical Subm Dr: Ryan Rodriguez Tissues: A Fallopian Tube - Sterilization (BILATERAL FALLOPIAN TUBES) B Placenta - 3rd Trimester (Greater than 28 weeks) (PLACENTA) Procedures: HE/6, Gross/Micro L5, Gross/Micro L2 Age/ Patient Sex Location Account Attending Physician Edith Wells 28/F LABELL [id number] Ryan Rodriguez SPEC NUM: [id number] RECD: 04/13/24 STATUS: SY WARREN NUM: [id number] CIELO: 04/13/24- SUBM DR: Ryan Rodriguez ENTERED: 04/13/[address]: Anna,Lab SPEC TYPE: Surgical DEPT: [facility] [...] reason: Bloody amniotic fluid Repeat section, salpingectomy. Specimen: [id number] Received: 04/13/24 Status: SY Warren Num: [id number] Spec Type: Surgical Subm Dr: Ryan Rodriguez Tissues: A Fallopian Tube - Sterilization (BILATERAL FALLOPIAN TUBES) B Placenta - 3rd Trimester (Greater than 28 weeks) (PLACENTA) Procedures: YAJAIRA, Gross/Micro L5, Gross/Micro L2 Patient: Edith Wells [id number] (Continued) Specimen: [id number] Received: 04/13/24 (Continued) Signed (signature on file) Lashae Phipps MD 04/19/24 1544 Specimen: [id number] Received: 04/13/24 Status: SY Warrne Num: [id number] Spec Type: Surgical Subm Dr: Ryan Rodriguez Tissues: A Fallopian Tube - Sterilization (BILATERAL FALLOPIAN TUBES) B Placenta - 3rd Trimester (Greater than 28 weeks) (PLACENTA) Procedures: HE/Skyler, Gross/Micro L5, Gross/Micro L2 Patient: Edith Wells [id number] (Continued) Specimen: [id number] Received: 04/13/24-1333 (Continued) Gross Description A. Received in formalin labeled with the patient's name, date of and bilateral fallopian tubes are 2 undesignated fimbriated fallopian tubes assigned as #1 and #2. Each tube is covered by calhoun-purple serosa. Tube #1 measures 8.8 cm in length by 0.4- 1.1 cm in diameter and tube #2 measures 10.6 cm in length by 1.2 cm in diameter and contains a 0.7 cm intact paratubal cyst. Cut sections for each tube demonstrate an intact luminal center lined by unremarkable calhoun mucosa. Authorization Nurse sections of each tube are submitted in [...] end and parenchyma adjacent (more content not included)...NormalThe Mission Hospital Physician GroupLaboratory - Chemistry and Chemistry - challengeon 11-74-7300Ujrxujbn [Moles/Vol]106 mmol/K68-804SopmpvptfOhio State Health SystemCO2 [Moles/Vol]22.8 mmol/L21.0-32.0[facility] SystemPotassium [Moles/Vol]3.8 mmol/L3.5-5.1FGalion Hospitalodium [Moles/Vol]140 mmol/F704-630IuwwjqptfOhio State Health System Bilirubin Ql (U)NegativeNEGLake County Memorial Hospital - WestGlucose (U) [Mass/Vol]NegativeNEGATIVEOhio State Health SystemKetones Ql (U)TRACE mg/dLAbnormalNEGLake County Memorial Hospital - WestpH (U)7.0 [pH]5.0-9.0 [facility] Hamiltonpecific gravity (U) [Rel density]1.025 1.005-1.025[facility] Health SystemUrobilinogen Qn (U)0.2 {Vasquez'U}/dL0.2-1.0[facility] SystemLaboratory - Drug toxicologyon 55-05-6461Awunwucibpmp Ql (U)NegativeNEGLake County Memorial Hospital - WestBenzodiazepines Ql (U)NegativeNEGLake County Memorial Hospital - WestCocaine Ql (U)NegativeNEGLake County Memorial Hospital - WestOpiates Ql (U)NegativeNEGLake County Memorial Hospital - WestPhencyclidine Ql (U)Negative NEGATIVEOhio State Health SystemLaboratory - Hematology and Cell counts on 59-93-6306Ofcfejwz granulocytes/100 WBC (Bld)1.1 %High0.0-0.5FAdena Regional Medical CenterLaboratory - Specimen informationon 35-73-5292Pvagvzubeo (U)CLEARCLEARFAdena Regional Medical CenterColor (U)YELLOWYELLOWOhio State Health SystemLaboratory - Urinalysison 09-80-5899Julcttspo sediment LM Ql (Urine sed)FEWOhio State Health SystemLeukocyte esterase Test strip Ql (U)NegativeNEGLake County Memorial Hospital - WestMucus Ql (Urine sed)NONE SEENNONE SEENOhio State Health SystemNitrite Ql (U)NegativeNEGATIVE [facility] SystemProtein Ql (U)NegativeNEG/TRACEOhio State Health SystemLeukocytes [#/volume] corrected for nucleated erythrocytes in Blood by Automated counon 30-64-7676CTN corrected for nucl RBC Auto (Bld) [#/Vol]12.9 10 3/uLHigh4.0-11.0[facility] Lymphocytes Auto (Bld) [#/Vol]on 53-92-2472Hhuocmnnuen (Bld) [#/Vol]3.6 10 3/uL 1.2-3.8[facility] SystemLymphocytes/100 WBC Auto (Bld)on 42-24-2873Bnddzvfslfa/100 WBC (Bld)27.5 %20.5-60.0[facility] HospitalH Auto (RBC) [Entitic mass]on 29-59-4269NZN (RBC) [Entitic mass]29.5 pg 26.7-34.0[facility] SystemMCHC Auto (RBC) [Mass/Vol]on 61-31-4967XFZX (RBC) [Mass/Vol]32.4 g/dL29.9-35.2FAultman Alliance Community HospitalV Auto (RBC) [Entitic vol]on 22-38-4228PFJ (RBC) [Entitic vol]91.2 fL 81.0-99.0[facility] SystemMethadone [Presence] in Urine by Screen methodon 54-89-9035Pqzxmwlxr Screen Ql (U)NegativeNEGATIVEOhio State Health SystemMonocytes Auto (Bld) [#/Vol]on 89-12-2203Brhrtvouk (Bld) [#/Vol]0.7 10 3/uL0.3-0.8[facility] SystemMonocytes/100 WBC Auto (Bld)on 54-07-0046Zoyxtujsu/100 WBC (Bld)5.7 %1.7-12.0[facility] SystemNeutrophils Auto (Bld) [#/Vol]on 39-03-4258Ktkfbhdrcgs (Bld) [#/Vol]8.3 10 3/uLHigh1.4-6.5FAdena Regional Medical CenterNeutrophils/100 WBC Auto (Bld)on 58-99-2945Msqhcfwciom/100 WBC (Bld)64.3 %43.0-75.0[facility] SystemNo Panel Informationon 44-24-5235Fddafxcywpp # (Auto)0.2 10 3/uL0.0-0.7FAdena Regional Medical CenterImmature Granulocyte # (Auto)0.14 10 3/uLHigh0.00-0.03[facility] SystemUrine BacteriaMODERATE #/HPFAbnormalNONE [facility] HospitalUrine Barbiturates Screen NegativeNEGLake County Memorial Hospital - WestUrine Culture ReflexedHolzer HospitalUrine Marijuana (THC) ScreenNegativeNEGATIVE [facility] SystemUrine Methamphetamines ScreenNegativeNEGATIVE [facility] SystemUrine Occult BloodNegativeNEGATIVEOhio State Health SystemUrine Other CastsNONE SEEN #/LPFNONE [facility] HospitalUrine Other CrystalsSeen #/HPFAbnormalNone [facility] CenterUrine RBC0-2 #/HPF0-2FAdena Regional Medical Center Urine Squamous Epithelial CellsFEW #/LPFAbnormalNONE/RAREOhio State Health SystemUrine WBC0-2 #/HPFAbnormalNONE [facility] HospitalPlatelet mean volume Auto (Bld) [Entitic vol]on 26-36-4495Jejuzexw mean volume (Bld) [Entitic vol]10.8 fL9.5-13.5FAdena Regional Medical Center Platelets Auto (Bld) [#/Vol]on 68-15-0573Audliboav (Bld) [#/Vol]357 10 3/uL 150-450[facility] SystemRBC Auto (Bld) [#/Vol]on 47-26-4162AAY (Bld) [#/Vol]3.42 10 6/uLLow4.20-5.40[facility] Hamiltonerum or plasma anion gap determinationon 70-42-1127Vqrnu gap [Moles/Vol]15.0 mmol/L [facility] SystemUrine tricyclic antidepressant measurementon 35-48-3542Xetawmuib antidepressants (U) [Mass/Vol]NegativeNEGLake County Memorial Hospital - WestoxyCODONE+oxyMORphone [Presence] in Urine by Screen methodon 98-55-7188gydEENWOE+oxyMORphone Screen Ql (U)NegativeNEGLake County Memorial Hospital - WestNo Panel InformationOrdered By: Ryan Rodriguez on 03-31-2024 Group B Streptococcus CultureOhio State Health SystemGlucose mean value [Mass/volume] in Blood Estimated from glycated hemoglobinon 23-22-8175Rxlgnpm glucose Estimated from glycated hemoglobin (Bld) [Mass/Vol]114 mg/dLOhio State Health SystemLaboratory - Hematology and Cell countson 78-97-9506KyP2n (Bld) [Mass fraction]5.6 %4.5-6.2FAdena Regional Medical CenterComment on above:ADA RECOMMENDED LIMIT 4.0 - 6.0ADA THERAPEUTIC TARGET < 7.0ACTION SUGGESTED> 7.0No Panel Informationon 84-44-2251Taihdfvpc C InterpretationComment .[facility] SystemComment on above:Not infected with HCV unless early or acute infection issuspected (which may be delayed in an immuno compromisedindividual), or other evidence exists to indicate HCVinfection.Performed at: [facility] [address] [id number] Director: Frankie Aguero PhD, Phone: [phone] or plasma hepatitis C virus antibody signal/cutoff ratio by immunoassay (relation 41-79-8187TGR Ab Signal/Cutoff IA [Rel units/Vol]Non-ReactiveNon Reactive [facility] SystemBasophils Auto (Bld) [#/Vol]on 03-11-2024 Basophils (Bld) [#/Vol]0.0 10 3/uL0.0-0.1FAdena Regional Medical Center Basophils/100 WBC Auto (Bld)on 82-43-5383Fldugplpv/100 WBC (Bld)0.1 %0.2-2.0 [facility] SystemEosinophils/100 WBC Auto (Bld)on 03-11-2024 Eosinophils/100 WBC (Bld)0.6 %0.9-7.0[facility] Erythrocyte distribution width Auto (RBC) [Ratio]on 43-86-1300Ckkdqnqkvty distribution width (RBC) [Ratio]14.1 %11.0-15.0[facility] Hematocrit Auto (Bld) [Volume fraction]on 22-07-4948Ydohqvxgdh (Bld) [Volume fraction]30.2 %36.0-48.0[facility] SystemHemoglobin [Mass/volume] in Bloodon 76-96-4575Ojttfqyqlk (Bld) [Mass/Vol]9.9 g/dL12.0-16.0 [facility] SystemLaboratory - Chemistry and Chemistry - challengeon 26-82-4279Xwnyvhxb [Moles/Vol]103 mmol/O30-627OhvyrpztyOhio State Health SystemCO2 [Moles/Vol]25.7 mmol/L21.0-32.0[facility] SystemPotassium [Moles/Vol]4.0 mmol/L3.5-5.1FAdena Regional Medical Center Sodium [Moles/Vol]135 mmol/P907-179SlgyxjwwdOhio State Health SystemBilirubin Ql (U)NegativeNEGATIVEOhio State Health SystemGlucose (U) [Mass/Vol] NegativeNEGATIVEOhio State Health SystemKetones Ql (U)TRACE mg/dL NEGATIVEOhio State Health SystempH (U)7.5 [pH]5.0-9.0[facility] Hamiltonpecific gravity (U) [Rel density]1.0201.005-1.025Ohio [facility] Health SystemUrobilinogen Qn (U)0.2 {Vasquez'U}/dL0.2-1.0[facility] SystemLaboratory - Hematology and Cell countson 03-11-2024 Immature granulocytes/100 WBC (Bld)0.7 %0.0-0.5FAdena Regional Medical Center Laboratory - Specimen informationon 95-49-6599Kztakansme (U)CLEARCLEARFAdena Regional Medical CenterColor (U)YELLOWYELLOWOhio State Health System Laboratory - Urinalysison 39-54-6414Rwuativzd esterase Test strip Ql (U)Negative NEGATIVEOhio State Health SystemNitrite Ql (U)NegativeNEGATIVEOhio State Health SystemProtein Ql (U)TRACE mg/dLNEG/TRACEOhio State Health SystemLeukocytes [#/volume] corrected for nucleated erythrocytes in Blood by Automated counon 36-01-0806JNM corrected for nucl RBC Auto (Bld) [#/Vol]9.9 10 3/uL4.0-11.0[facility] SystemLymphocytes Auto (Bld) [#/Vol]on 44-19-0766Kwfygfgxdms (Bld) [#/Vol]2.9 10 3/uL1.2-3.8[facility] SystemLymphocytes/100 WBC Auto (Bld)on 03-11-2024 Lymphocytes/100 WBC (Bld)29.1 %20.5-60.0[facility]. Ruby [facility] HospitalH Auto (RBC) [Entitic mass]on 55-24-8061HZD (RBC) [Entitic mass]30.6 pg26.7-34.0 [facility] SystemMCHC Auto (RBC) [Mass/Vol]on 82-04-8811YFCR (RBC) [Mass/Vol]32.8 g/dL29.9-35.2FAdena Regional Medical CenterMCV Auto (RBC) [Entitic vol]on 75-65-0628EOS (RBC) [Entitic vol]93.2 fL81.0-99.0[facility] SystemMonocytes Auto (Bld) [#/Vol]on 16-98-4024Zozuzdrpn (Bld) [#/Vol]0.6 10 3/uL0.3-0.8[facility] SystemMonocytes/100 WBC Auto (Bld)on 93-97-3598Owvdqfmnh/100 WBC (Bld)6.3 %1.7-12.0[facility] SystemNeutrophils Auto (Bld) [#/Vol]on 10-32-3792Sigjxaccqmw (Bld) [#/Vol]6.2 10 3/uL1.4-6.5FAdena Regional Medical CenterNeutrophils/100 WBC Auto (Bld)on 89-48-6394Qdagsylrhrk/100 WBC (Bld)63.2 %43.0-75.0[facility] SystemNo Panel Informationon 88-43-1208Grnfpavbfgz # (Auto)0.1 10 3/uL0.0-0.7FAdena Regional Medical CenterImmature Granulocyte # (Auto)0.07 10 3/uL0.00-0.03[facility] SystemUrine Microscopic ReviewNO [facility] SystemUrine Occult BloodNegativeNEGATIVEOhio State Health SystemPlatelet mean volume Auto (Bld) [Entitic vol]on 53-84-1921Aemiujzo mean volume (Bld) [Entitic vol]9.9 fL9.5-13.5FAdena Regional Medical CenterPlatelets Auto (Bld) [#/Vol]on 23-14-8736Cdxdyhofz (Bld) [#/Vol]345 10 3/bU328-909BwziigivyOhio State Health SystemRBC Auto (Bld) [#/Vol] on 27-69-8653HWR (Bld) [#/Vol]3.24 10 6/uL4.20-5.40[facility] Hamiltonerum or plasma anion gap determinationon 79-28-4790Ebgtw gap [Moles/Vol] 10.3 mmol/LFAdena Regional Medical CenterCNPNon 05-75-8389GUKOBmgnnwlvm (4CQ) EDITH WELLS ([id number]) 1995 F Date Time Provider Department 05/27/23 TESSA SANCHEZ 4CQ During your visit today, we recorded the following information about you: Glenis Gavin 05/27/2023 12:11 PM Signed Edith Wells is calling Tessa Sanchez MD today. Patient's therapist at [facility] is asking if she can continue PT but change it to 2 days on land and 0 days in water per week. Needs new order sent to [facility] in [place]. She did not have the fax number. [...] time off per provider's discretion. 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 Call her to inform when she can pick it up. Call cell number below. May leave a message. No chief complaint on file. Patient has been identified by name and birthdate. Duration of symptoms: Person calling: self Call patient at: on cell and , it is OK to leave message [phone] (home) [phone] (cell) Was an appointment scheduled: No Closing statement: Results or non-symptom based questions: Thank you for calling [facility], your call will be returned within [...] Encounter Status:Closed by LIZZETTE ADAMS RN on 05/27/23[facility] [id number] [id number] Visit ([facility]) EDITH WELLS ([id number]) 1995 F Date Time Provider Department 04/17/23 [...] records. This note was partially generated using [employer] voice recognition system, and there may be some incorrect words, spellings, and punctuation that were not noted in checking the note before saving. Tessa Sanchez M.D. 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 [facility] 07/02/2022 Gait Cycle: Normal Yes, Limp: [...] records. This note was partially generated using [employer] voice recognition system, and there may be some incorrect words, spellings, and punctuation that were not noted in checking the note before saving. Tessa Sanchez M.D. 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 Has been approved by [facility] and she can now schedule. Asking for recent therapy order from Dr Sanchez be faxed to [facility] in [place] at [phone]. Lizzette Adams RN 03/01/2023 10:22 AM Signed Faxed today at 10:20am. Lizzette Adams RN Allergies As of Date: 02/28/2023 (No Known Allergies) Date Reviewed: 01/02/2023 Reviewed by: Theresa Frederick MA - Fully Assessed Reason for Visit: Electronic Communication [660] Cmt: PT order faxed today Prescriptions as [...] Encounter Status:Closed by LIZZETTE ADAMS RN on 03/01/23[facility] HospitalCNPNon [id number] (ORAVON) EDITH WELLS ([id number]) 1995 F Date Time Provider Department 01/10/23 [...] back to the office to update CALL [phone] Autumn Clayton 01/10/2023 12:07 PM Signed Edith [...] calling: self Call patient at: at home [phone] (home) [phone] (cell) Was an appointment scheduled: No Closing statement: Results or non-symptom based questions: Thank you for calling [facility], your call will be returned within the next business day. Lizzette Adams RN 01/11/2023 12:04 PM Signed Patient's note faxed today as requested Lizzette Adams RN Nolberto Noguera 02/08/2023 4:15 PM Signed Patient calling in about papers she received in the mail. She does not know what they are or what she needs to do with them. Please call her at [phone]. Lizzette Adams RN 02/11/2023 10:34 AM Signed [...] Reason for Visit: Return To Work Letter [3497] Prescriptions as of 02/11/2023 - etodolac (LODINE-XL) [...] Encounter Status:Closed by LIZZETTE ADAMS RN on 01/11/23[facility] HospitalSuresh [id number] Visit (ORAVON) EDITH WELLS ([id number]) 1995 F Date Time Provider Department 01/02/23 4:00 PM TESSA SANCHEZ During your visit today, we recorded the following information about you: Tessa Sanchez MD 01/02/2023 10:32 PM Signed Edtih Wells returns today to follow up on [...] records. This note was partially generated using [employer] voice recognition system, and there may be some incorrect words, spellings, and punctuation that were not noted in checking the note before saving. Scribe Attestation: By signing my name below, I, Pippa Moss, attest that this documentation has been prepared under the direction and in the presence of Tessa Sanchez MD. Electronically Signed: Pippa alan Moss, January 02, 2023 4:30 PM I agree with the Chief Complaint, ROS, and Past Histories independently gathered by the clinical learning support assistant and the remaining scribed note accurately describes my personal service to the patient. Tessa Sanchez M.D. 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 - cyclobenzaprine (FLEXERIL) 5 (more content not included)...NormalHolzer Health SystemXR ANKLE 3V AP/LAT/OBL RTon 03-37-3175OH ANKLE 3V AP/LAT/OBL RT* * *Final Report* * * DATE OF [...] malalignment is identified. Joint spaces are maintained. Harbormaster: ANYA Transcribe Date/Time: Jan 02 2023 4:17P Dictated by : RC CIFUENTES MD This examination was interpreted and the report reviewed and electronically signed by: RC CIFUENTES MD on Jan 02 2023 4:18PM EST [id number] Health SystemXR ANKLE GENERAL 3V AP/LAT/OBL RIGHTon 99-66-1155Wykutpymk ClinicCNCOon 91-07-8205HRGEZvgmvn Text NormalHolzer Health SystemCNPNon [id number] (ORAVON) EDITH WELLS ([id number]) 1995 F Date Time Provider Department 12/21/22 [...] 08/14/2022 Encounter Status:Closed by VINAY CORONA on 12/21/22NoThe [facility] of [facility] Medical CenterShayy [id number] (ORAVON) EDITH WELLS ([id number]) 1995 F Date Time Provider Department 12/19/22 [...] NT to get symptom details. Autumn Clayton [facility] Patient Operations Support Team (POST) Please note: [...] that prevented her form having PT. CALL [phone] Vinay Corona RN 12/21/2022 5:35 PM Signed This RN called and spoke with patient. Letter sent via [employer] she report she received it. 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 She was grateful for the call. 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 Judah CoburnTEIN-POSADAS VIRUS (EBV) AB PROFILEon 20-76-6842RNF Ab VCA, IgG 370.0 U/mLCritically high0.0-17.9The [facility] HospitalComment on above:Result Comment: Negative <18.0 Equivocal 18.0 - 21.9 Positive >21.9Performed By: #### EBVPROF #### [facility] [address] [place] [address] Dr. Judah Perales Ab VCA, IgM<36.3Ovojgy9.0-35.9The [facility] HospitalComment on above:Result Comment: Negative <36.0 Equivocal 36.0 - 43.9 Positive >43.9Performed By: #### EBVPROF #### [facility] [address] [place] [address] Dr. Judah Perales Nuclear Antigen Ab, HeT858.0 U/mLCritically high0.0-17.9The [facility] HospitalComment on above:Result Comment: Negative <18.0 Equivocal 18.0 - 21.9 Positive >21.9Performed By: #### EBVPROF #### [facility] [address] [place] [address] Dr. Judah PhippsInterpretation:CommentEast [facility] Regional Hospital on above:Result Comment: EBV Interpretation Chart Geller: Antibody Present [...] patients with EBV never develop antibodies to EBNA.Performed By: #### EBVPROF #### [facility] [address] [place] [address] Dr. Judah PhippsXR ANKLE 3V AP/LAT/OBL RTon 90-33-3617ML ANKLE 3V AP/LAT/OBL RT* * *Final Report* * * DATE OF [...] dislocation. IMPRESSION: Expected postoperative findings as described. Harbormaster: PSCB Transcribe Date/Time: Nov 14 2022 6:35P Dictated by : TINA VEGA MD This examination was interpreted and the report reviewed and electronically signed by: TINA VEGA MD on Nov 15 2022 6:27AM EST [id number] Health SystemXR ANKLE GENERAL 3V AP/LAT/OBL RIGHTon 14-69-6334Ulvpqcexi ClinicAMYLASEon 98-55-5716Dazyvqq [Catalytic activity/Vol]42 U/NVxppvb04-533Qet [facility] HospitalComment on above: Performed By: #### LIPA, CMP, SYEDA, PREGQNT #### [facility] [address] [address] [address] Judah ZelayaC AUTO DIFFon 31-32-1907IXRX #0.0 103/ulNormal0.0-0.1The [facility] HospitalComment on above:Performed By: #### LIPA, CMP, SYEDA, PREGQNT #### [facility] [address] [address] [address] Judah PhippsBasophils/100 WBC (Bld)0.3 %Normal0.2-2.0The [facility] Comment on above:Performed By: #### LIPA, CMP, SYEDA, PREGQNT #### [facility] [address] [place] [address] Dr. Judah Castorena #0.5 103/ulNormal0.0-0.7The [facility] HospitalComment on above: Performed By: #### LIPA, CMP, SYEDA, PREGQNT #### [facility] [address] [place] [address] Dr. Judah Sanchezosinophils/100 WBC (Bld)4.0 %Normal0.9-7.0[facility] Comment on above:Performed By: #### LIPA, CMP, SYEDA, PREGQNT #### [facility] [address] [place] [address] Dr. Judah Sanchezrythrocyte distribution width (RBC) [Ratio]13.2 %Zysdim65.0-15.0 The [facility] HospitalComment on above:Performed By: #### LIPA, CMP, SYEDA, PREGQNT #### [facility] [address] [place] [address] Dr. Judah PhippsHematocrit (Bld) [Volume fraction]37.2 %Amqbty41.0-48.0The [facility] HospitalComment on above:Performed By: #### LIPA, CMP, SYEDA, PREGQNT #### [facility] [address] [place] [address] Dr. Judah PhippsHemoglobin (Bld) [Mass/Vol]12.5 g/aKQupboc94.0-16.0The [facility] HospitalComment on above:Performed By: #### LIPA, CMP, SYEDA, PREGQNT #### [facility] [address] [place] [address] Dr. Judah Osman #0.04 10e3/ulCritically high0.00-0.03The [facility] Comment on above:Performed By: #### LIPA, CMP, SYEDA, PREGQNT #### [facility] [address] [place] [address] Dr. Judah Osman %0.3 %Normal0.0-0.5The [facility] HospitalComment on above: Performed By: #### LIPA, CMP, SYEDA, PREGQNT #### [facility] [address] [place] [address] Dr. Judah Kate #4.8 103/ulCritically high1.2-3.8The [facility] Comment on above:Performed By: #### LIPA, CMP, SYEDA, PREGQNT #### [facility] [address] [place] [address] Dr. Judah Petershocytes/100 WBC (Bld)39.9 %Kcymxb48.5-60.0The [facility] HospitalComment on above:Performed By: #### LIPA, CMP, SYEDA, PREGQNT #### [facility] [address] [place] [address] Dr. Judah McduffieUAL DIFF REQNONormalThe [facility] HospitalComment on above: Performed By: #### LIPA, CMP, SYEDA, PREGQNT #### [facility] [address] [place] [address] Dr. Judah Winston (RBC) [Entitic mass]30.5 ruYdwnbh98.7-34.0The [facility] HospitalComment on above:Performed By: #### LIPA, CMP, SYEDA, PREGQNT #### [facility] [address] [place] [address] Dr. Judah Winston (RBC) [Mass/Vol]33.6 g/yLSjhmzu95.9-35.2The [facility] HospitalComment on above:Performed By: #### LIPA, CMP, SYEDA, PREGQNT #### [facility] [address] [place] [address] Dr. Judah Winston (RBC) [Entitic vol]90.7 kNAdairx00.0-99.0The [facility] HospitalComment on above:Performed By: #### LIPA, CMP, SYEDA, PREGQNT #### [facility] [address] [place] [address] Dr. Judah Villela #0.7 103/ulNormal0.3-0.8The [facility] HospitalComment on above:Performed By: #### LIPA, CMP, SYEDA, PREGQNT #### [facility] [address] [place] [address] Dr. Judah Cortesocytes/100 WBC (Bld)6.1 %Normal1.7-12.0The [facility] Comment on above:Performed By: #### LIPA, CMP, SYEDA, PREGQNT #### [facility] [address] [place] [address] Dr. Judah Horan #5.9 103/ulNormal1.4-6.5The [facility] HospitalComment on above:Performed By: #### LIPA, CMP, SYEDA, PREGQNT #### [facility] [address] [place] [address] Dr. Judah Jacksonutrophils/100 WBC (Bld)49.4 %Zqzwfm25.0-75.0The [facility] HospitalComment on above:Performed By: #### LIPA, CMP, SYEDA, PREGQNT #### [facility] [address] [place] [address] Dr. Judah Landa mean volume (Bld) [Entitic vol]9.2 fLCritically low 9.5-13.5The [facility] HospitalComment on above:Performed By: #### LIPA, CMP, SYEDA, PREGQNT #### [facility] [address] [place] [address] Dr. Judah HawkT408 103/aiNilobf679-376Oce [facility] HospitalComment on above: Performed By: #### LIPA, CMP, SYEDA, PREGQNT #### [facility] [address] [place] [address] Dr. Judah PhippsRBC4.10 106/ulCritically low4.20-5.40The [facility] HospitalComment on above:Performed By: #### LIPA, CMP, SYEDA, PREGQNT #### [facility] [address] [place] [address] Dr. Yilan NrzhwOAR20.0 103/ulCritically high4.0-11.0The [facility] HospitalComment on above:Performed By: #### LIPA, CMP, SYEDA, PREGQNT #### [facility] [address] [place] [address] Dr. Judah PhippsLIPASEon 32-94-7893Yoqbdd [Catalytic activity/Vol]161.0 U/LNormal 73.0-393.0The [facility] HospitalComment on above:Performed By: #### LIPA, CMP, SYEDA, PREGQNT #### [facility] [address] [place] [address] Dr. Judah PhippsPREBoni QUANT HCGon 39-24-3989FEQ QUANT<1NormalThe [facility] Comment on above:Performed By: #### LIPA, CMP, SYEDA, PREGQNT #### [facility] [address] [place] [address] Dr. Judah Stevens RANGESEE [facility] Health SystemComment on above: Result Comment: 5-50 0.2-1 WEEK 50-500 1-2 WEEKS 100-5,000 2-3 WEEKS 500-10,000 3-4 WEEKS 1,000-50,000 4-5 WEEKS 10,000-100,000 5-6 WEEKS 15,000-200,000 6-8 WEEKS 10,000-100,000 2-3 MONTHSPerformed By: #### LIPA, CMP, SYEDA, PREGQNT #### [facility] [address] [place] [address] Dr. Judah PhippsPROF 14(COMP METB)on 25-84-1386Znkqslr [Mass/Vol]3.6 g/dLNormal 3.4-5.0The [facility] HospitalComment on above:Performed By: #### LIPA, CMP, SYEDA, PREGQNT #### [facility] [address] [place] [address] Dr. Judah PhippsAlbumin/Globulin [Mass ratio]1.1 {ratio}NormalSamaritan HospitalComment on above:Performed By: #### LIPA, CMP, SYEDA, PREGQNT #### [facility] [address] [place] [address] Dr. Judah SueP [Catalytic activity/Vol]64 U/RRzkoib05-427Hmd [facility] HospitalComment on above:Performed By: #### LIPA, CMP, SYEDA, PREGQNT #### [facility] [address] [address] [address] Judah SueT [Catalytic activity/Vol]9 U/LCritically ehg52-11Tkg [facility] HospitalComment on above:Performed By: #### LIPA, CMP, SYEDA, PREGQNT #### [facility] [address] [place] [address] Dr. Judah Evanson gap [Moles/Vol]11.3 mmol/LNormalThe [facility] Comment on above:Performed By: #### LIPA, CMP, SYEDA, PREGQNT #### [facility] [address] [place] [address] Dr. Judah Novak [Catalytic activity/Vol]10 U/LCritically zwe22-11Khy [facility] HospitalComment on above:Performed By: #### LIPA, CMP, SYEDA, PREGQNT #### [facility] [address] [place] [address] Dr. Judah PhippsBilirubin [Mass/Vol]0.2 mg/dLNormal0.2-1.0[facility] Comment on above:Performed By: #### LIPA, CMP, SYEDA, PREGQNT #### [facility] [address] [place] [address] Dr. Judah PhippsCalcium [Mass/Vol]8.9 mg/dLNormal8.5-10.1[facility] Comment on above:Performed By: #### LIPA, CMP, YSEDA, PREGQNT #### [facility] [address] [place] [address] Dr. Judah PhippsChloride [Moles/Vol]102 mmol/QCvwjep65-411LsnSamaritan Hospital Comment on above:Performed By: #### LIPA, CMP, SYEDA, PREGQNT #### [facility] [address] [place], [place] [address] Dr. Judah PhippsCO2 [Moles/Vol]28.5 mmol/BUixmxr90.0-32.0The [facility] Comment on above:Performed By: #### LIPA, CMP, SYEDA, PREGQNT #### [facility] [address] [place] [address] Dr. Judah PhippsCreatinine [Mass/Vol]0.65 mg/dLNormal0.55-1.02The [facility] HospitalComment on above:Performed By: #### LIPA, CMP, SYEDA, PREGQNT #### [facility] [address] [place] [address] Dr. Judah SanchezGFR-AF RUSSIAN>60Normal>=60The [facility] HospitalComment on above:Performed By: #### LIPA, CMP, SYEDA, PREGQNT #### [facility] [address] [place] [address] Dr. Judah SanchezGFR-NON AF RUSSIAN>60Normal>=60The [facility] HospitalComment on above:Performed By: #### LIPA, CMP, SYEDA, PREGQNT #### [facility] [address] [place] [address] Dr. Judah PhippsGlobulin (S) [Mass/Vol]3.4 g/dLNormalThe [facility] HospitalComment on above:Performed By: #### LIPA, CMP, SYEDA, PREGQNT #### [facility] [address] [place] [address] Dr. Judah PhippsGlucose [Mass/Vol]100 mg/gCFdztfk85-858ElvSamaritan Hospital Comment on above:Performed By: #### LIPA, CMP, SYEDA, PREGQNT #### [facility] [address] [place] [address] Dr. Judah PhippsPotassium [Moles/Vol]3.8 mmol/LNormal3.5-5.1The [facility] Comment on above:Performed By: #### LIPA, CMP, SYEDA, PREGQNT #### [facility] [address] [place] [address] Dr. Judah PhippsProtein [Mass/Vol]7.0 g/dLNormal6.4-8.2The [facility] Comment on above:Performed By: #### LIPA, CMP, SYEDA, PREGQNT #### [facility] [address] [address] [address] Judah PhippsSodium [Moles/Vol]138 mmol/PTgfdzs548-474Qyk [facility] Comment on above:Performed By: #### LIPA, CMP, SYEDA, PREGQNT #### [facility] [address] [address] [address] Judah PhippsUrea nitrogen [Mass/Vol]15.0 mg/dLNormal7.0-18.0The [facility] HospitalComment on above:Performed By: #### LIPA, CMP, SYEDA, PREGQNT #### [facility] [address] [address] [address] Judah Lynn nitrogen/Creatinine [Mass ratio]23.1 mg/mgNormalThe [facility] HospitalComment on above:Performed By: #### LIPA, CMP, SYEDA, PREGQNT #### [facility] [address] [address] [address] Judah PhippsRESPIRATORY PANEL PLUSon 42-07-3237JwbbbfrakqTub detectedNormal NOT DETECTEDThe [facility] HospitalComment on above:Performed By: #### RSPLUS #### [facility] [address] [address] [address] Judah Sarabia ParapertusisNot detectedNormalNOT DETECTEDThe [facility] HospitalComment on above:Performed By: #### RSPLUS #### [facility] [address] [address] [address] Judah Sarabia PertussisNot detectedNormalNOT DETECTEDThe [facility] Comment on above:Performed By: #### RSPLUS #### [facility] [address] [address] [address] Judah PhippsChlamydia PneumoniaeNot detectedNormalNOT DETECTEDThe [facility] HospitalComment on above:Performed By: #### RSPLUS #### [facility] [address] [address] [address] Judah PhippsCoronavirus 229ENot detectedNormalNOT DETECTEDThe [facility] HospitalComment on above:Performed By: #### RSPLUS #### [facility] [address] [address] [address] Judah PhippsCoronavirus XCV7Loh detectedNormalNOT DETECTEDThe [facility] HospitalComment on above:Performed By: #### RSPLUS #### [facility] [address] [address] [address] Judah PhippsCoronavirus FL55Fzp detectedNormalNOT DETECTEDThe [facility] HospitalComment on above:Performed By: #### RSPLUS #### [facility] [address] [address] [address] Judah PhippsCoronavirus ZX56Quq detectedNormalNOT DETECTEDThe [facility] HospitalComment on above:Performed By: #### RSPLUS #### [facility] [address] [address] [address] Judah PhippsInflchaitanya A H1 2009Not detectedNormalNOT DETECTEDThe [facility] HospitalComformerly [facility] on above:Performed By: #### RSPLUS #### [facility] [address] [address] [address] Judah PhippsInflchaitanya A H3Not detectedNormalNOT DETECTEDThe [facility] Comment on above:Performed By: #### RSPLUS #### [facility] [address] [address] [address] Judah Dent BNot detectedNormalNOT DETECTEDThe [facility] Comment on above:Performed By: #### RSPLUS #### [facility] [address] [address] [address] Judah RosasapneumovirusNot detectedNormalNOT DETECTEDThe [facility] HospitalComformerly [facility] on above:Performed By: #### RSPLUS #### [facility] [address] [address] [address] Judah Dodson. PneumoniaeNot detectedNormalNOT DETECTEDThe [facility] HospitalComment on above:Performed By: #### RSPLUS #### [facility] [address] [place] [address] Dr. Judah Mccauley 1Not detectedNormalNOT DETECTEDThe [facility] HospitalComment on above:Performed By: #### RSPLUS #### [facility] [address] [address] [address] Judah Mccauley 2Not detectedNormalNOT DETECTEDThe [facility] HospitalComment on above:Performed By: #### RSPLUS #### [facility] [address] [place] [address] Dr. Judah Mccauley 3Not detectedNormalNOT DETECTEDThe [facility] HospitalComment on above:Performed By: #### RSPLUS #### [facility] [address] [place] [address] Dr. Judah Mccauley 4Not detectedNormalNOT DETECTEDThe [facility] HospitalComment on above:Performed By: #### RSPLUS #### [facility] [address] [place] [address] Dr. Judah Balderas/EnterovirusNot detectedNormalNOT DETECTEDThe [facility] HospitalComformerly [facility] on above:Performed By: #### RSPLUS #### [facility] [address] [place] [address] Dr. Judah Monzon Header 1RESPIRATORY PANEL: VIRUSESPeoples Hospital on above:Performed By: #### RSPLUS #### [facility] [address] [place] [address] Dr. Judah Monzon Header 2RESPIRATORY PANEL: BACTERIANoMcKitrick HospitalComment on above:Performed By: #### RSPLUS #### [facility] [address] [place] [address] Dr. Judah LathamNot detectedNormalNOT DETECTEDThe [facility] HospitalComment on above:Performed By: #### RSPLUS #### [facility] [address] [place] [address] Dr. Judah Robles-CoV-2 (COVID-19) RNA HAROLDO+probe Ql (Unsp spec)Not detected NormalNOT DETECTEDThe [facility] HospitalComment on above:Performed By: #### RSPLUS #### [facility] [address] [place] [address] Dr. 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 Encounter Status:Closed by TESSA SANCHEZ on 10/10/22[facility] HospitalShayy 30-63-6557WFTCSjumxmoaw (ORAVON) EDITH WELLS ([id number]) 1995 F Date Time Provider Department 09/26/22 TESSA SANCHEZ During your visit today, we recorded the following information about you: Rita Taveras [facility] 09/26/2022 11:18 AM Signed Patient requesting to speak with provider or staff in regards to right leg pain. She is having pain from her toes up to her knee. Her right ankle surgery was 08/28/22 and questions if pain is normal? Patient is to start therapy today at 6 pm. Patient requesting a return call through #[phone] or #[phone]. The second number is her boyfriends line, Elias. Patient gives okay to leave message with Elias if needed. Please advise. Lizzette Adams RN 09/28/2022 2:23 PM Signed I spoke with Kathie on 09/26/22. 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 Encounter Status:Closed by TESSA SANCHEZ on 09/12/22NoKindred Hospital Limaice Visit (ORAVON) EDITH WELLS ([id number]) 1995 F Date Time Provider Department 09/12/22 [...] in Care of boot.. 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] Prescriptions as [...] 08/14/2022 Encounter Status:Closed by ALFRED KEARNS on 09/12/22NoThe University of [facility]edo Medical CenterCNPNon 69-20-9868TMTOSdfmbdgdg (ORAVON) EDITH WELLS ([id number]) 1995 F Date Time Provider Department 09/03/22 [...] Encounter Status:Closed by AMPARO GUILLORY RN on 09/14/22NoOhio[facility] 20-09-9649FBPEAaqmdwryp (SICU) EDITH WELLS ([id number]) 1995 F Date Time Provider Department 09/02/22 [...] Fully Assessed Reason for Visit: Patient Question [1037] Prescriptions as of 09/02/2022 - acetaminophen (TYLENOL) [...] 08/14/2022 Encounter Status:Closed by EYAD SHELBY on 09/02/22[facility] HospitalCNConchaURSEon 34-67-9983SYOTEBXTceao Visit (ORAVON) EDITH WELLS ([id number]) 1995 F Date Time Provider Department 08/29/22 3:45 PM NURSE [facility] KATHRYN WRIGHT During your visit [...] Stanford RN - Fully Assessed 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 Applied short cast: to Right leg non-weight bearing Patient has been instructed in Care of cast.. 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] Prescriptions as [...] 08/14/2022 Encounter Status:Closed by ALFRED KEARNS on 08/29/22[facility] HospitalANES POSTPROC EVALon 58-01-2950SPIR POSTPROC EVALHNO ID: [id number] Author: Mike Alcantar MD Service: Anesthesiology Author Type: Anesthesiologist Type: Anesthesia Postprocedure Evaluation Filed: 08/28/2022 1:05 PM Note Text: POST ANESTHESIA EVALUATION NOTE : 1995 Procedure Summary Date: 08/28/22 Room / Location: [address] / [facility] Anesthesia Start: 1029 Anesthesia Stop: 1149 Procedure: [...] August 28, 2022 TIME: 1:04 PM CSN: [id number] City Hospital PRE-OPon 94-19-1840NDOT PRE-OPHNO ID: [id number] Author: Mike Alcantar MD Service: Anesthesiology Author Type: Anesthesiologist Type: Anesthesia Preprocedure Evaluation Filed: 08/28/2022 9:33 AM Note Text: ANESTHESIOLOGY DAY OF SURGERY NOTE : 1995 Procedure Information Date/Time: 08/28/22 1000 Procedure: ARTHROSCOPY ANKLE EXCISION 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) Location: [address] / [facility] Surgeons: Tessa Sanchez MD Estimated body mass [...] August 28, 2022 TIME: 9:32 AM CSN: [id number] HospitalOPERATIVE NOon 08-28-2022 OPERATIVE NOHNO ID: [id number] Author: Tessa Sanchez MD Service: Orthopaedic Surgery Author Type: Physician Type: Operative Report Filed: 08/28/2022 1:09 PM Note Text: OPERATIVE REPORT LOG ID: [id number] Surgery Date: 08/28/2022 Incision/Procedure Start Time: 11:01 AM Incision Close/Procedure End Time: 11:32 AM Procedure Performed: Procedure(s) (LRB): ARTHROSCOPY ANKLE EXCISION OSTEOCHONDRAL DEFECT MEDIAL TALUS Microfracture of talus Synovectomy Surgeon monitored fluoroscopy Surgeon(s)/Proceduralist(s) and Shopper Marketing Manager(s): Surgeon(s) and Role: * Tessa Sanchez MD - Primary Physician Shopper Marketing Manager: Mercedes Gale PA-C, was essential in patient [...] to 300 mmHg. Ankle Arthroscopy, OCD debridement, Microfracture,Synovectomy: Non Invasive traction was utilized Flouroscopy was [...] August 28, 2022 TIME: 1:04 PM PHONE: [phone] HospitalCBC panel Auto (Bld)on 76-07-1633Rzfkqvlvkqm distribution width (RBC) [Ratio]13.3 %Jhynyi55.5-15.0 [facility] on above:Order Comment: Specimen Type: BLOOD SPECIMENOrdering Facility: [facility] Address:[address] [place], [place] [address]Performed By: #### 39974-4 ####[facility] LABIA [id number] [place] [address] Hematocrit (Bld) [Volume fraction]37.6 %Mchaxj29.0-46.0[facility] on above:Order Comment: Specimen Type: BLOOD SPECIMENOrdering Facility: [facility] Address:[address] [place], [place] [address]Performed By: #### 37078-7 ####[facility] LABIA [id number] [place], [place] [address]Rmvwbwnxsz (Bld) [Mass/Vol]12.4 g/xCEpihvc30.5-15.5CSuburban [facility] on above: Order Comment: Specimen Type: BLOOD SPECIMENOrdering Facility: [facility] Address:[address] [place], [place] [address]Performed By: #### 29029-5 ####[facility] LABCLIA [id number] [place], [place] [address]UMM (RBC) [Entitic mass]30.4 duNfyglq30.0-34.0[facility] on above:Order Comment: Specimen Type: BLOOD SPECIMENOrdering Facility: [facility] Address:[address] [place], [place] [address]Performed By: #### 24220-2 ####[facility] LABCLIA [id number] [place], [place] [address]FELM (RBC) [Mass/Vol]33.0 g/vLFyncor99.5-36.0[facility] on above:Order Comment: Specimen Type: BLOOD SPECIMENOrdering Facility: [facility] Address:[address] [place], [place] [address]Performed By: #### 38707-2 ####[facility] LABIA [id number] [place], [place] [address]FRC (RBC) [Entitic vol]92.2 hFIqcpbh59.0-100.0 [facility] on above:Order Comment: Specimen Type: BLOOD SPECIMENOrdering Facility: [facility] Address:[address] [place], [place] [address]Performed By: #### 42518-6 ####[facility] LABIA [id number] [place], [place] [address]Uttzolefl RBC (Bld) [#/Vol]10*3/uLNormal<0.01[facility] on above: Order Comment: Specimen Type: BLOOD SPECIMENOrdering Facility: [facility] Address:[address] [place], [place] [address]Performed By: #### 75264-8 ####[facility] LABCLIA [id number] [place], [place] [address]Dxjxndxr mean volume (Bld) [Entitic vol]9.3 fLNormal 9.0-12.7CSuburban Community Hospital & [facility] on above:Order Comment: Specimen Type: BLOOD SPECIMENOrdering Facility: [facility] Address:[address] [place], [place] [address]Performed By: #### 14645-1 ####[facility] LABCLIA [id number] [place], [place] [address]Gjdlwxdnn (Bld) [#/Vol]386 10*3/pSIrdugi599-616LupgnehocParkview Health on above: Order Comment: Specimen Type: BLOOD SPECIMENOrdering Facility: [facility] Address:[address] [place], [place] [address]Performed By: #### 99156-4 ####[facility] LABIA [id number] [place], [place] [address]YKZ (Bld) [#/Vol]4.08 10*6/uLNormal3.90-5.20[facility] on above:Order Comment: Specimen Type: BLOOD SPECIMENOrdering Facility: [facility] Address:[address] [place], [place] [address]Performed By: #### 43382-2 ####[facility] LABIA [id number] [place], [place] [address]XGE (Bld) [#/Vol]8.69 10*3/uLNormal3.70-11.00[facility] on above: Order Comment: Specimen Type: BLOOD SPECIMENOrdering Facility: [facility] Address:[address] [place], [place] [address]Performed By: #### 41563-0 ####[facility] LABIA [id number] [place], [place] [address]Scgevmqheoa distribution width (RBC) [Ratio]13.3 %11.5 - 15.0 %[facility] ClinicHematocrit (Bld) [Volume fraction]37.6 %36.0 - 46.0 % [facility] ClinicHemoglobin (Bld) [Mass/Vol]12.4 g/dL11.5 - 15.5 g/dLNewark HospitalH (RBC) [Entitic mass]30.4 pg26.0 - 34.0 pgCTrumbull Memorial HospitalHC (RBC) [Mass/Vol]33.0 g/dL30.5 - 36.0 g/dLNewark HospitalV (RBC) [Entitic vol]92.2 fL80.0 - 100.0 fLCmemorial hospital ClinicNucleated RBC (Bld) [#/Vol]<0.01 k/uLUniversity Hospitals Ahuja Medical CenterPlatelet mean volume (Bld) [Entitic vol]9.3 fL9.0 - 12.7 fLCNewark HospitalPlatelets (Bld) [#/Vol]386 10*3/uL150 - 400 k/[facility]ar[facility] HospitalRBC (Bld) [#/Vol]4.08 10*6/uL3.90 - 5.20 m/[facility] HospitalWBC (Bld) [#/Vol]8.69 10*3/uL 3.70 - 11.00 k/[facility] HospitalBasic metabolic 2000 panelon 45-84-2236Nazfe gap [Moles/Vol]8 mmol/LLow9-18Holzer Health SystemComment on above:Order Comment: Specimen Type: BLOOD SPECIMENOrdering Facility: [facility] Address:[address] [place], [place] [address]Performed By: #### 20117-3 ####[facility] LABCLIA [id number] [place], [place] [address]Jdbzoyf [Mass/Vol]9.4 mg/dLNormal8.5-10.2CSuburban Community Hospital & [facility] on above:Order Comment: Specimen Type: BLOOD SPECIMENOrdering Facility: [facility] Address:[address] [place], [place] [address]Performed By: #### 61405-7 ####[facility] LABCLIA [id number] [place], [place] [address]Qnbudknr [Moles/Vol]104 mmol/VMobcvp03-541HiogkghjqParkview Health on above:Order Comment: Specimen Type: BLOOD SPECIMENOrdering Facility: [facility] Address:[address] [place], [place] [address]Performed By: #### 47387-3 ####[facility] LABCLIA [id number] [place], [place] [address]UQ9 [Moles/Vol]25 mmol/NVsuput10-64IuratxmzqParkview Health on above:Order Comment: Specimen Type: BLOOD SPECIMENOrdering Facility: [facility] Address:[address] [place], [place] [address]Performed By: #### 30020-3 ####[facility] LABIA [id number] [place], [place] [address]Digoltzlgv [Mass/Vol] 0.60 mg/dLNormal0.58-0.96[facility] on above:Order Comment: Specimen Type: BLOOD SPECIMENOrdering Facility: [facility] Address:[address] [place], [place] [address]Performed By: #### 58966-5 ####[facility] LABIA [id number] [place], [place] [address]NBWPDPOSB GLOMERULAR FILTRATION IYQR727 mL/min/1.73m??? Normal>=60[facility] on above:Order Comment: Specimen Type: BLOOD SPECIMENOrdering Facility: [facility] Address:[address] [place], [place] [address]Result Comment: Estimated Glomerular Filtration Rate (eGFR) is calculated using the 2020 CKD-EPI creatinine equation. This equation utilizes serum creatinine, sex, and age as parameters. The creatinine assay has traceable calibration to isotope dilution-mass spectrometry. Refer to KDIGO guidelines for clinical interpretation. In patients with unstable renal function, e.g. those with acute kidney injury, the eGFR may not accurately reflect actual GFR.Performed By: #### 06803-1 ####[facility] LABIA [id number] [place] [address] Glucose [Mass/Vol]109 mg/sPYofs53-70DpmahkribParkview Health on above: Order Comment: Specimen Type: BLOOD SPECIMENOrdering Facility: [facility] Address:[address] [place], [place] [address]Result Comment: The [place] Diabetes Association (ADA) provides guidance for cutoff values for fast ing glucose and random glucose. The ADA defines [...] Standards of Medical Care in Diabetes 2016, [place] Diabetes Association. Diabetes Care. 2016.39(Suppl 1).Performed By: #### 29916-9 ####[facility] LABCLIA [id number] [place], [place] [address]Hujkliwob [Moles/Vol]3.8 mmol/LNormal3.7-5.1CSuburban Community Hospital & [facility] on above:Order Comment: Specimen Type: BLOOD SPECIMENOrdering Facility: [facility] Address:[address] [place], [place] [address]Performed By: #### 43254-2 ####[facility] LABCLIA [id number] [place], [place] [address]Mqsgwe [Moles/Vol]137 mmol/YXfxtsa057-849EmcaphkdeParkview Health on above: Order Comment: Specimen Type: BLOOD SPECIMENOrdering Facility: [facility] Address:[address] [place], [place] [address]Performed By: #### 79486-7 ####[facility] LABCLIA [id number] [place], [place] [address]Ukru nitrogen [Mass/Vol]20 mg/dLNormal7-21[facility] on above:Order Comment: Specimen Type: BLOOD SPECIMENOrdering Facility: [facility] Address:[address] [place], [place] [address]Performed By: #### 12660-1 ####[facility] LABIA [id number] [place], [place] [address]YQB panel Auto (Bld)on 84-81-1282Ypwpzdbnpav distribution width (RBC) [Ratio]13.5 %Normal 11.5-15.0[facility] on above:Order Comment: Specimen Type: BLOOD SPECIMENOrdering Facility: [facility] Address:[address] [place], [place] [address]Performed By: #### 78825-0 ####[facility] LABIA [id number] [place] [address] Hematocrit (Bld) [Volume fraction]39.9 %Hayngf91.0-46.0[facility] on above:Order Comment: Specimen Type: BLOOD SPECIMENOrdering Facility: [facility] Address:[address] [place], [place] [address]Performed By: #### 97553-2 ####[facility] LABIA [id number] [place], [place] [address]Qihgiotaxc (Bld) [Mass/Vol]13.4 g/mXJmdfxv89.5-15.5CSuburban Community Hospital & [facility] on above: Order Comment: Specimen Type: BLOOD SPECIMENOrdering Facility: [facility] Address:[address] [place], [place] [address]Performed By: #### 30458-0 ####[facility] LABIA [id number] [place], [place] [address]MSC (RBC) [Entitic mass]30.7 haMjbmek52.0-34.0[facility] on above:Order Comment: Specimen Type: BLOOD SPECIMENOrdering Facility: [facility] Address:[address] [place], [place] [address]Performed By: #### 44465-1 ####[facility] LABCLIA [id number] [place], [place] [address]ZTVK (RBC) [Mass/Vol]33.6 g/tQUcsius72.5-36.0[facility] on above:Order Comment: Specimen Type: BLOOD SPECIMENOrdering Facility: [facility] Address:[address] [place], [place] [address]Performed By: #### 66729-8 ####[facility] LABCLIA [id number] [place], [place] [address]YGZ (RBC) [Entitic vol]91.5 eYFseitr39.0-100.0 [facility] on above:Order Comment: Specimen Type: BLOOD SPECIMENOrdering Facility: [facility] Address:[address] [place], [place] [address]Performed By: #### 02349-1 ####[facility] LABIA [id number] [place], [place] [address]Larzhacdl RBC (Bld) [#/Vol]10*3/uLNormal<0.01[facility] on above: Order Comment: Specimen Type: BLOOD SPECIMENOrdering Facility: [facility] Address:[address] [place], [place] [address]Performed By: #### 75296-1 ####[facility] LABCLIA [id number] [place], [place] [address]Kwoslart mean volume (Bld) [Entitic vol]9.2 fLNormal 9.0-12.7CSuburban Community Hospital & [facility] on above:Order Comment: Specimen Type: BLOOD SPECIMENOrdering Facility: [facility] Address:[address] [place], [place] [address]Performed By: #### 59381-1 ####[facility] LABIA [id number] [place], [place] [address]Bebgcexws (Bld) [#/Vol]409 10*3/uZOult396-916TrmkmfxleParkview Health on above: Order Comment: Specimen Type: BLOOD SPECIMENOrdering Facility: [facility] Address:[address] [place], [place] [address]Performed By: #### 50185-9 ####[facility]ENTERMEKHI [facility] LABIA [id number] [place], [place] [address]LNI (Bld) [#/Vol]4.36 10*6/uLNormal3.90-5.20[facility] on above:Order Comment: Specimen Type: BLOOD SPECIMENOrdering Facility: [facility] Address:[address] [place], [place] [address]Performed By: #### 87859-3 ####[facility]ENTERMEKH[facility] LABIA [id number] [place], [place] [address]FFI (Bld) [#/Vol]16.45 10*3/uLHigh3.70-11.00[facility] on above: Order Comment: Specimen Type: BLOOD SPECIMENOrdering Facility: [facility] Address:[address] [place], [place] [address]Performed By: #### 99836-2 ####[facility]ENTERMEKH[facility] LABIA [id number] [place], [place] [address]FUPLmw 70-50-7115PPFLNipwzurfv (BRENT) EDITH WELLS ([id number]) 1995 F Date Time Provider Department 08/15/22 TESSA SANCHEZ During your visit today, we recorded the following information about you: Kasi Mathur PA-C 08/15/2022 9:48 AM Signed Good morning Dr. Sanchez, This patient was seen by me for virtual PACC for upcoming ARTHROSCOPY ANKLE EXCISION 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 - Right scheduled with you on 08/28/2022 at [facility] under General. She had her pre-op [...] [95] Preparations For Surgery [898] Primary Visit Diagnosis:Leukocytosis, unspecified type [D72.829] Order(s):CBC [SQCBC] Order #: [id number] FUTURE Prescriptions as of 08/24/2022 - predniSONE [...] 08/14/2022 Encounter Status:Closed by KASI MATHUR on 08/24/22[facility] PHYSICALon 48-44-7602YWANSCQ PHYSICALHNO ID: [id number] Author: Kasi Mathur PA-C Service: ? Author Type: Physician Shopper Marketing Manager Type: HANDP Filed: 08/24/2022 1:26 PM Note [...] fevers. Neuro: No history of TIA's, stroke, DRAIN LAYER tumor, impaired sensorium, hemiplegia, paraplegia or quadraplegia. 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 NormalPike Community HospitalCOon 34-21-7698HGZWPhjfbl TextNormalCCleveland Clinic South Pointe HospitalOVon 57-00-6969QDGONpcghj Visit (JALILAVGOLDIE) EDITH WELLS ([id number]) 1995 F Date Time Provider Department 08/08/22 11:30 AM TESSA SANCHEZ During your visit today, we recorded the following information about you: Tessa Sanchez MD 2022 12:58 PM Signed New Patient Referring Physician: Charbel Wells is a 27 year old female referred by Charbel Lamb for her right foot pain. She states [...] at times. Consultation requested by Dr. Charbel Lamb for an opinion regarding her right foot [...] Scan The patient's pertinent medical history from [facility] has been reviewed. 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 TECHNIQUE: 3 views FINDINGS: IMPRESSION: Pelvic side bending to the right that may be positionally related. Maintenance of the normal lumbar lordosis.. Vertebral body heights and alignments exhibit no fracture or listhesis. Intervertebral disc space heights are unremarkable Electronically authenticated by: CHARBEL TAPIA Date: 2022-08-01 20:44NormMercy Health Fairfield Hospitale [facility] HospitalCovid-19 PCR (CVDTBH)on 01-95-7331PONM-CoV-2 (COVID-19) RNA HAROLDO+probe Ql (Unsp spec)Not detectedNormalNOT DETECTEDThe [facility] Comment on above:Result Comment: When diagnostic testing is negative, the [...] for this test is supported by the Pharmacy Scheduler of Health and Human Service's declaration that circumstances exist to justify the emergency use of in vitro diagnostics for the detection and/or diagnosis of the virus that causes COVID-19. This EUA will remain in effect for the duration of the COVID-19 declaration justifying emergency of IVDs, unless it is terminated or revoked by the FDA (after which the test may no longer be used).Performed By: #### LIPA, CMP, SYEDA, PREGQNT #### [facility] [address] [address] [address] Judah PhippsGROUP A STREP CULTUREon 06-28-2022. pyogenes Ag Ql (Unsp spec) Culture Observations: NEGATIVE FOR GROUP A STREPTOCOCCUS.NormalThe [facility] HospitalComment on above: Performed By: #### GRASTCX, SSCRN #### [facility] [address] [address] [address] Judah PhippsSTREPT SCREENon 96-81-8086DXQFZ SCREEN ANegativeNormalNEGATIVEThe [facility] Memorial HospitalComment on above:Performed By: #### GRASTCX, SSCRN #### [facility] [address] [address] [address] Judah PhippsXR Ankle Complete Righton 70-91-9096CK Ankle Complete Right CLINICAL HISTORY: Right leg [...] and signed by Kristi Olguin on 05/07/2022 1503NoUniversity Hospitals Health SystemXR Spine Lumbar 4+ Views*on 27-88-1803QX Spine Lumbar 4+ Views*CLINICAL HISTORY: Right leg sciatica for 5 days. [...] and signed by Kristi Olguin on 05/07/2022 1453NoUniversity Hospitals Health System Vital Signs Date TimeVital SignValuePerforming OouvymsosPumrbvxg97-20-6443 09:41-0400Body atakbi116.71 cmDavid Michael DO Work Phone: [facility]08-25-2025 09:41-0400 Body mass index (BMI) [Ratio]42.9 kg/e8Yxvel Michael DO Work Phone: [facility]08-25-2025 09:41-0400 Body julstboypbj21.6 [degF]Charbel Michael DO Work Phone: [facility]08-25-2025 09:41-0400 Body eaghhf514.93 kgDacandido Girvin DO Work Phone: [phone])[address] [place], [place] 352[address]08-25-2025 09:41-0400 Diastolic blood euleuwuc78 mm[Hg]Charbel Michael DO Work Phone: [phone])[address] [place], [place] 3521708-25-2025 09:41-0400 Heart rate65 /minDvickd Girvin DO Work Phone: [phone])[address] [place], [place] 3521708-25-2025 09:41-0400 SaO2% (BldA) [Mass fraction]98 %Charbel Rodriguez DO Work Phone: [phone])[address] [place], [place] 3521708-25-2025 09:41-0400 Systolic blood czhpvagt688 mm[Hg]Charbel Rodriguez DO Work Phone: [phone])[address] [place], [place] 3521706-25-2025 09:12-0400 Body dkasfc731.71 cmDaabhinavcolumba Michael DO Work Phone: [phone] [place], [place] 3521706-25-2025 09:12-0400 Body mass index (BMI) [Ratio]42.5 kg/t2Wwavz Michael DO Work Phone: [phone])[address] [place], [place] 3521706-25-2025 09:12-0400 Body qwbuhw108.8 kgDacandido Jenkinsvin DO Work Phone: [phone])[address] [place], [place] 352[address]06-25-2025 09:12-0400 Diastolic blood wmvnnepu39 mm[Hg]Charbel Rodriguez DO Work Phone: [phone] [place], [place] 3521706-25-2025 09:12-0400 Heart rate56 /minDvikcd Girvin DO Work Phone: 1419)[address] [place], [place] 3521706-25-2025 09:12-0400 Respiratory rate18 /minDavid Girvin DO Work Phone: [phone])[address] [place], [place] 3521706-25-2025 09:12-0400 SaO2% (BldA) [Mass fraction]97 %Charbel Rodriguez DO Work Phone: [phone])[address] [place], [place] 352[address]06-25-2025 09:12-0400 Systolic blood mm[Hg]Charbel Rodriguez DO Work Phone: [phone]03-19-2025 09:44-0400 Body vagmkw587.56 cmDacandido Alicerosey DO Work Phone: [phone]03-19-2025 09:44-0400 Body mass index (BMI) [Ratio]46 kg/f8Irjeg Girrosey DO Work Phone: [phone]03-19-2025 09:44-0400 Body .3 [degF]Charbel Rodriguez DO Work Phone: [phone]-19-2025 09:44-0400 Body .56 kgDaabhinavcolumba Jenkisnrosey DO Work Phone: [phone]03-19-2025 09:44-0400 Diastolic blood sognhmjm78 mm[Hg]Charbel Rodriguez DO Work Phone: [phone]03-19-2025 09:44-0400 Heart rate62 /minDavicolumba Jenkinsrosey DO Work Phone: [phone] [place], [place] [address]03-19-2025 09:44-0400 SaO2% (BldA) [Mass fraction]99 %Charbel Rodriguez DO Work Phone: [phone]03-19-2025 09:44-0400 Systolic blood srdrtotc195 mm[Hg]Charbel Rodriguez DO Work Phone: [phone]03-10-2025 11:37-0400 Body etkmiz468.56 cm[facility]03[facility]2025 11:37-0400Body mass index (BMI) [Ratio]46.5 kg/e9WeqbgaztsOhio State Health System03-10-2025 11:37-0400Body hdgwcafrvge11.1 [degF][facility]03-10-2025 11:37-0400Body yveypf317.92 kgOhio [facility]03-10-2025 11:37-0400Diastolic blood iomrhsrr17 mm[Hg][facility] 01-04-2025 11:37-0400Heart rate61 /minOhio [facility] 01-04-2025 11:37-6913DwS2% (BldA) [Mass fraction]99 %[facility]03-10-2025 11:37-0400Systolic blood mm[Hg][facility]09-12-2024 09:58-0400Body ecicjz735.56 cmDO Charbel Rodriguez Work Phone: [phone]09-12-2024 09:58-0400 Body qznqwfsajxd49.5 [degF]DO Charbel Rodriguez Work Phone: [phone]09-12-2024 09:58-0400 Diastolic blood gweutknp95 mm[Hg]DO Charbel Rodriguez Work Phone: [phone]09-12-2024 09:58-0400 Heart rate66 /minDO Charbel Rodriguez Work Phone: [phone]09-12-2024 09:58-0400 SaO2% (BldA) [Mass fraction]97 %DO Charbel Rodriguez Work Phone: [phone]09-12-2024 09:58-0400 Systolic blood qjvxlazm661 mm[Hg]DO Charbel Rodriguez Work Phone: [phone]07-12-2023 09:30-0400 Body qaolmf715.19 cmDacandido Rodriguez Other [facility] [employer] Other [id number] 09:30-0400Body mass index (BMI) [Ratio] 46.15 kg/m3Cckdkcandido Rodriguez Other [employer] Other 852922-64-2838 09:30-0400Body ejyfwuiqtuf10.3 [degF]Charbel Rodriguez Other [employer] Other 07-12-2023 09:30-0400Body dnoplu856.93 kgCharbel Rodriguez Other [employer] Other 07-12-2023 09:30-0400Diastolic blood wnmjnkyg59 mm[Hg] Charbel Rodriguez Other [employer] Other 07-12-2023 09:30-0400Respiratory rate18 /minDalfonso Rodriguez Other [employer] Other 07-12-2023 09:30-2868BhS9% (BldA) [Mass fraction]98 % Charbel Rodriguez Other [employer] Other 07-12-2023 09:30-0400Systolic blood mm[Hg] Charbel Rodriguez Other [employer] Other 134366-25-9097 10:50-0400Body .19 cmCharbel Rodriguez Other [employer] Other 426292-79-2387 10:50-0400Body mass index (BMI) [Ratio] 45.47 kg/r6CvjmzCharbel Rodriguez Other [employer] Other 175017-27-7335 10:50-0400Body glmsqwbjzah41.8 [degF]Charbel Rodriguez Other [employer] Other 06-16-2023 10:50-0400Body bizgsd155.11 kgDacandido Rodriguez Other [employer] Other 06-16-2023 10:50-0400Diastolic blood mm[Hg] Charbel Rodriguez Other [employer] Other 06-16-2023 10:50-0400Respiratory rate20 /minDalfonso Rodriguez Other [employer] Other 06-16-2023 10:50-7741ZhF3% (BldA) [Mass fraction]98 % Charbel Rodriguez Other [employer] Other 06-16-2023 10:50-0400Systolic blood mm[Hg] Charbel Rodriguez Other [employer] Other 02-10-2023 11:20-0500Body .19 cmAcordelia Guevara Other [employer] Other 02-10-2023 11:20-0500Body mass index (BMI) [Ratio] 42.57 kg/j3YrjjyRonda Guevara Other [employer] Other 02-10-2023 11:20-0500Body vdrebkafhla31.2 [degF]Ronda Guevara Other [employer] Other 02-10-2023 11:20-0500Body .4 kgRonda Guevara Other [employer] Other 02-10-2023 11:20-1260ZsD3% (BldA) [Mass fraction]98 % Ronda Guevara Other [employer] Other 10-18-2022 11:13-0400Body xqyote140.1 [facility]10-18-2022 11:13-0400Body .66 kgPacc [facility]10-18-2022 11:13-0400Heart rate60 /minPacc [facility] 08-13-2022 15:40-0400Body eeqrax147.19 cmDacandido Rodriguez Other [employer] Other 10-17-2022 15:40-0400Body mass index (BMI) [Ratio] 45.64 kg/s4TasfrCharbel Rodriguez Other [employer] Other 10-17-2022 15:40-0400Body qwwfpnlurjq35.7 [degF]Charbel Rodriguez Other [employer] Other 10-17-2022 15:40-0400Body eauqpu752.56 kgDacandido Rodriguez Other [employer] Other 10-17-2022 15:40-0400Diastolic blood biumuisb97 mm[Hg] Charbel Rodriguez Other [employer] Other 10-17-2022 15:40-0400Respiratory rate18 /minDalfonso Rodriguez Other [employer] Other 10-17-2022 15:40-9932CgO6% (BldA) [Mass fraction]98 % Charbel Rodriguez Other [employer] Other 10-17-2022 15:40-0400Systolic blood rrqflgve837 mm[Hg] Charbel Rodriguez Other [employer] Other 063942-22-7719 18:14-0400Body itjbdakrktl77.4 [degF]DO Charbel Rodriguez Work Phone: [facility]09-10-2022 18:14-0400 Diastolic blood fymjjgqa11 mm[Hg]DO Charbel Rodriguez Work Phone: [facility]09-10-2022 18:14-0400 Heart rate65 /Phan Rodriguez Work Phone: [phone]09-10-2022 18:14-0400 Respiratory rate20 /Phan Rodriguez Work Phone: [phone]09-10-2022 18:14-0400 SaO2% (BldA) [Mass fraction]99 %DO Charbel Rodriguez Work Phone: [phone]09-10-2022 18:14-0400 Systolic blood mm[Hg]DO Charbel Rodriguez Work Phone: [phone]09-10-2022 18:05-0400 Body .1 cmDO Charbel Rodriguez Work Phone: [phone] [address]09-10-2022 18:05-0400 Body cfwzmo527.39 kgDO Charbel Rodriguez Work Phone: [phone] Encounters Encounter DateEncounter TypeCare ProviderFacilityStart: 06-29-2025 End: 93-97-2213zqgicgugkjXxrwe Michael DO Work Phone: [phone] Work Phone: Start: 06-29-2025 End: 38-10-3465Vfnbfep encounter procedureDavicolumba Rodriguez DO-[facility] [place] Work Phone: Start: 06-21-2025 End: 49-28-3814ilkewriykiLqttz Girvin DO Work Phone: [facility] Work Phone: Start: 06-21-2025 End: 67-27-4398Akrbnok encounter procedureDavid Apolonia Rodriguez DO-[facility] [place] Work Phone: Start: 05-31-2025 End: 01-83-8176qrtiycvlnnWxpdl Michael DO Work Phone: [facility] Work Phone: Start: 05-31-2025 End: 48-65-5881Tsayvto encounter procedureDallsasophie Sam [facility] Work Phone: Start: 04-27-2025 End: 87-85-4953fvtavpczrkDjxxl Girvin DO Work Phone: [facility] Work Phone: Start: 04-27-2025 End: 57-73-8940Zcgftwy encounter procedureDallassophie Sam [facility] Work Phone: Start: 04-21-2025 End: 66-26-4098rdnxlkmthlYzhdr Girvin DO Work Phone: [facility] Work Phone: Start: 04-21-2025 End: 74-30-7397Kfvigvs encounter procedureJayleen Jones [facility] Work Phone: Start: 03-18-2025 End: 51-60-3051Pekkvzk encounter procedureDavid Girvin DO Work Phone: [facility] [place] Work Phone: Start: 03-18-2025 End: 32-63-5009ritihelmlqJajkp GirvinFacility:[facility] Start: 01-13-2025 End: 58-10-6821nwerpnobeiUvcyh Girvin DO Work Phone: [facility] Work Phone: Start: 01-13-2025 End: 26-30-4735Knxvtfo encounter procedureDavid Girvin DO Work Phone: [facility] Family [facility] Work Phone: Start: 01-11-2025 End: 09-82-0401Srbzslw encounter procedureDavid Girvin DO Work Phone: [facility]Ul[facility]ound [facility] [place] Work Phone: Start: 01-11-2025 End: 46-92-5316onersyrxcyAbbgz Michael DO Work Phone: [facility] Work Phone: Start: 01-04-2025 End: 63-80-8434Vzagnet encounter procedureDacandido Alicerosey DO Work Phone: [facility] [place] Work Phone: Start: 01-04-2025 End: 97-38-6379ufotbqsbidYlwwm Michael DO Work Phone: [facility] Work Phone: Start: 97-14-2035Wgozgcdqk for general adult medical examination without abnormal findingsH[facility] Start: 36-50-5974Nnytkce encounter statusKettering Health Hamiltontart: 01-04-2025 End: 03-18-3935oxcabqzxfrUgrlcglhd [facility] Work Phone: Start: 01-04-2025 End: 88-02-1547Dwdquiczf for general adult medical examination without abnormal findingsKettering Health Hamiltontart: 01-04-2025 End: 89-82-4360Khpglca encounter procedureM[facility] [place] Work Phone: Start: 50-37-7579Hfq-patient / Non-visitM[facility] Phys[facility] GroupMilitary [facility] Work Phone: Start: 22-05-0972Hrb-patient / Non-visitM[facility] Hospital Physician GroupMilitary [facility] System [facility] Work Phone: Start: 07-09-2024 End: 85-53-0125rjglpjawyhYB David Girvin Work Phone: [facility] Work Phone: Start: 07-09-2024 End: 40-47-8767Crqbqwe encounter procedureDO Charbel Rodriguez Work Phone: [facility] [place] Work Phone: Start: 95-34-5953Oer-patient / Non-visitDO Charbel Rodriguez Work Phone: [facility] GroupMilitary [facility] Work Phone: Start: 47-84-5684Wug-patient / Non-visitDO Charbel Rodriguez Work Phone: [facility] GroupMilitary [facility] Work Phone: Start: 05-25-2024 End: 15-55-1529pzchxoyyftXCC RAMEYNot AvailableStart: 04-28-2024 End: 56-13-0258kecaxspdnfNQFGO FAZIONot AvailableStart: 79-04-6853Sdm-patient / Non-visitDO Charbel Rodriguez Work Phone: [facility] Physician [facility] Work Phone: Start: 04-20-2024 End: 94-85-4406nhmvcdqhjwZQAEJ FAZIONot AvailableStart: 29-24-0936Cnb-patient / Non-visitDO Charbel Rodriguez Work Phone: [facility] Work Phone: Start: 04-13-2024 End: 77-13-3319roptuakdcqGC Charbel Rodriguez Work Phone: [facility] Work Phone: Start: 04-13-2024 End: 82-42-1917Bwolkhvn ReferredDO Charbel Rodriguez Work Phone: [facility]LAB [facility] [place] HospStart: 61-14-9675Qbi-patient / Non-visitDO Charbel Rodriguez Work Phone: [facility] GroupMilitary [facility] Work Phone: Start: 04-07-2024 End: 14-61-1775rfytgosejzMINVA FAZIONot AvailableStart: 13-27-5255Rji-patient / Non-visitDO Charbel Rodriguez Work Phone: [facility] Work Phone: Start: 03-31-2024 End: 35-56-8577xmksdkawbvAUMDW FAZIONot AvailableStart: 74-65-6511Qnx-patient / Non-visitDO Charbel Michael Work Phone: [facility] Work Phone: Start: 03-16-2024 End: 40-52-2517vkghyhlztePWVNC FAZIONot AvailableStart: 04-17-7777Aar-patient / Non-visitDO Charbel Michael Work Phone: [facility] Work Phone: Start: 03-04-2024 End: 64-17-6018vnfooboblaZSGPXTM A VISCINot AvailableStart: 02-10-2024 End: 46-79-0549vxpwtcuwjsFIZCKPL A VISCINot AvailableStart: 01-27-2024 End: 39-66-5011vggfxcfhxhAJWIMES A VISCINot AvailableStart: 01-11-2024 End: 20-16-4826lfuacwncckCWGYOF A KIEPERTNot AvailableStart: 12-30-2023 End: 58-60-8602cmcqebpcrzQDCOITS A VISCINot AvailableStart: 12-16-2023 End: 03-30-0261ywnplfahowKWGLRYD A VISCINot AvailableStart: 11-11-2023 End: 87-68-8232cmihctqyywXCOJPUI A VISCINot AvailableStart: 10-14-2023 End: 69-44-2903eimtpeakueXJNNEZP VISCINot AvailableStart: 10-14-2023 End: 37-64-2008ngsgchvhlkLAYULVQ A VISCINot AvailableStart: 09-27-2023 End: 43-04-4184rsbhyypyohOKRMXHP VISCINot AvailableStart: 09-13-2023 End: 00-96-5436dsodncimeyJqymx Girvin Other [facility] [employer] Other Start: 52-24-7779Mywkerryp encounterDavid GirroseyFPG [facility] [place]vueStart: 09-10-2023 End: 82-67-5063ckkwppecjxUQBLKMI A VISCINot AvailableStart: 06-24-2023 End: 64-20-0009rqfoccewafAmjlx Michael Other [employer] Other Start: 14-61-2528Quesxhgex encounterDavid GirroseyFP[facility] [place]vueStart: 06-03-2023 End: 65-72-0853ewfaovrctuNebnk Michael Other [employer] Other Start: 77-12-0260Uhscmsxhn encounterDavid MichaelFP[facility] [place]vueStart: 05-27-2023 End: 32-51-2583ebudyxttxgPiafh Michael Other [employer] Other Start: 94-81-5431Sqkenixgw encounterDavid GirroseyFP[facility] [place]vueStart: 05-08-2023 End: 24-36-5752bnmssciotjVsywv Michael Other [employer] Other Start: 03-56-9767Goarzq outpatient visit 15 minutes Charble RodriguezFPG [facility] [place]vueStart: 04-26-2023 End: 31-30-3846glillckoohUajrf Michael Other [employer] Other Start: 89-11-5298Lodoglsuj encounterDavid GirvinFP[facility] [place]vueStart: 04-19-2023 End: 60-34-4132dnvquwtkzqUuoqr Michael Other [employer] Other Start: 35-48-7885Jviszmwjb encounterDavid GirvinFP[facility] [place]vueStart: 04-17-2023 End: 32-32-4523kbtyjphljmLEAOURusty Gibsoncility:[facility] Start: 04-17-2023 End: 99-25-8813Xcvostb encounter Alexandra Sanchez MD Work Phone: OrthopaedicsComment on above:Osteochondritis dissecans of right talus (Primary Dx)Start: 04-12-2023 End: 22-08-9782xyjosqgbvvVnvnl Girvin Other [facility] [employer] Other Start: 31-92-9836Vugitw outpatient visit 15 minutes Charbel Fields [facility]: 03-13-2023 End: 73-53-1367rkppvsurajPKVEJRusty Gibsoncility:[facility] Start: 90-89-8684Mjfaqjheb encounterTessa Sanchez MD Work Phone: OrthopaedicsComment on above:Electronic Communication (PT order faxed today)Start: 37-76-9593Hsmxbwmxr encounterTessa Sanchez MD Work Phone: OrthopaedicsComment on above:Return To Work Letter Start: 01-02-2023 End: 84-60-4832hebfgzctjnCMOVTRusty Gibsoncility:[facility] Start: 01-02-2023 End: 99-09-5640Uayeorwgac hospital visit by physicianXr Ortho [facility] Rej Work Phone: RadiologyComment on above:Osteochondritis dissecans of right talus [M93.271]Start: 01-02-2023 End: 29-04-1622Eqtweyr encounter Alexandra Sanchez MD Work Phone: OrthopaedicsComment on above:Osteochondritis dissecans of right talus (Primary Dx)Start: 01-24-3402Mzdzeodgn Ricky Sanchez MD Work Phone: OrthopaedicsComment on above:Patient Update (Requested a letter)Start: 88-00-6769Kxawnmcil Ricky Sanchez MD Work Phone: OrthopaedicsComment on above:Patient UpdateStart: 12-07-2022 End: 44-04-4637xoyvkaczraCbqdf Keller Other [place] [employer] Other Start: 99-98-6611Covdzm outpatient visit 25 minutes Ronda IsmaelFPBoni Urgent Care ClydeStart: 39-58-7028Odlonnbcv encounterDavid Donnie [facility] ClydeStart: 11-19-2022 End: 32-00-1228mbybdqamyuKnrcs Girvin Other [employer] Other Start: 69-99-6069Fudisypka encounterDavicolumba Fields [facility] [place]vueStart: 11-14-2022 End: 03-40-9406Qzfxuok encounter procedureTessa Sanchez MD Work Phone: OrthopaedicsComment on above:Osteochondritis dissecans of right talus (Primary Dx)Start: 11-14-2022 End: 50-40-0996Knhhwvlhpx hospital visit by physicianXr Ortho [facility] Rej Work Phone: RadiologyComment on above:Osteochondritis dissecans of right talus [M93.271]Start: 11-14-2022 End: 53-36-7084lqneadbennMISKM CLARK GIRSaint [facility] [employer] Other Start: 58-63-2382Fwnpocflt encounterDavid Donnie [facility] [place]vueStart: 11-13-2022 End: 51-57-5912ujzmzfitzrHT DAVID GIRVINFacility:C6Aqlrf: 11-12-2022 End: 53-45-5253lgrdsqqzlfHvdlg Girvin Other [employer] Other Start: 18-65-0031Hglyqhlzl encounterDavid Donnie [facility] BellevueStart: 29-58-4530Gthvin Benoit Sanchez MD Work Phone: OrthopaedicsComment on above:Osteochondritis dissecans of right talus (Primary Dx)Start: 10-10-2022 End: 83-94-7457gqgmxblocsOECVMAbdias Gibsonatrium health pinevilleity:[facility] Start: 10-10-2022 End: 65-55-2952Jiddnyr encounter procedureTessa Sanchez MD Work Phone: OrthopaedicsComment on above:Osteochondritis dissecans of right talus (Primary Dx)Start: 42-20-1849Xaogmnuml encounterTessa Sanchez MD Work Phone: OrthopaedicsComment on above:Patient QuestionStart: 09-12-2022 End: 87-77-0071bfwicrrpcmATQALAbdias Hidalgoity:[facility] Start: 09-12-2022 End: 50-95-4995Irihlrz encounter procedureCast [employer]ic[employer] Work Phone: OrthopaedicsComment on above:Osteochondritis dissecans of right talus (Primary Dx)Start: 09-05-2022 End: 17-09-1483tbtlyjjukdAafoi Girvin Other [employer] Other Start: 62-86-8699Annxrsdkt encounterDavid Donnie [facility] [place]vueStart: 09-03-2022 End: 54-58-5794fcmibeyupiNghxs Girvin Other [employer] Other Start: 95-56-1173Hodubufrw encounterDavid MichaelFPG [facility] Medicine BellevueComment on above:post op right ankle swelling and pain Start: 09-80-8087Amkmnqwod encounterEyad Shelby MD Work Phone: Surgical Intensive Care UnitComment on above:Patient QuestionStart: 08-29-2022 End: 83-72-6019Nkjqwbn encounter procedure[employer] Work Phone: OrthopaedicsComment on above:Osteochondritis dissecans of right talus (Primary Dx)Start: 08-29-2022 End: 84-95-7060rrfohjzdjwEQMRVRusty RODRIGUEZCurrently [employer] Other Start: 64-95-5754Ijgacdkgr encounterDacandido Fields [facility] HospitalevueStart: 08-28-2022 End: 18-35-4589oddcfhiilfGSZM W DAVISFacility:[facility] Centertart: 08-27-2022 Rosanna Sanchez MD Work Phone: OrthopaedicsComment on above:Refill RequestStart: 08-24-2022 End: 92-70-6047ojvnewgoplSYPONRusty RODRIGUEZFacility:[facility] Start: 08-16-2022 End: 82-10-7065ldizqlwrkjTcnof Girvin Other [employer] Other Start: 94-35-2034Hecgwtgee encounterDacandido Fields [facility] GainesvilleueStart: 43-43-0302Afovcnbmy encounterTessa Sanchez MD Work Phone: Pre AnesthesiaComment on above:Results; Preparations For SurgeryStart: 08-15-2022 End: 15-38-7257sbibnojzrbIMXKLRusty RODRIGUEZFacility:[facility] Start: 31-69-3821Lfzlryucn for other preprocedural examinationDACANDIDO RODRIGUEZ [facility] SystemStart: 08-14-2022 End: 98-85-3890Rzxsltgcg to [facility] HospitalStart: 08-14-2022 End: 64-53-5692mmzckbbjkzTBWP W DAVISPre AnesthesiaComment on above:Preop examination (Primary Dx); Anemia, unspecified type; Difficult intravenous access; Acute bilateral low back pain without sciatica; History of syncope; History of palpitations; Former smoker; BMI 40.0-44.9, adult (HCC)Start: 08-14-2022 End: 02-36-8627Mxcmrjcronwdw examination donePacc VirtualPre AnesthesiaStart: 08-13-2022 End: 11-68-4034wdrjitnrnvGupdt Girvin Other [employer] Other Start: 09-75-0906Nzrcfi outpatient visit 15 minutes Charbel Fields [facility] [place]vueStart: 17-79-9531Swuapaiux encounter Charbel Fields [facility] [place]vueStart: 2022 End: 22-51-8659pzrvapixjoBYTZT CLARK GIRVINFacility:[facility] Start: 2022 End: 32-02-5444Vebyggd encounter procedureTessa Sanchez MD Work Phone: OrthopaedicsComment on above:Osteochondritis dissecans of right talus (Primary Dx)Start: 08-01-2022 End: 28-74-3256bgaxrguzsmBZ DAVID GIRVINFacility:N0Augsj: 07-09-2022 End: 78-06-6037rupffhzfryJeayt Girvin Other [employer] Other Start: 63-23-8828Wofyslqee encounterDacandido Fields [facility] [place]vueStart: 07-07-2022 End: 22-39-7841Eyvclgxgu department patient visitDO Charbel Rodriguez Work Phone: [facility]-Emergency RoomStart: 06-28-2022 End: 63-48-3830prbhguvcrwTPKiko Gibsoncility:S5Xbjxp: 05-23-2022 End: 45-52-4986yzcmyuuuogHjdnb Girvin Other [place] [employer] Other Start: 76-01-4236Grbkguzpp encounterDacandido Fields [facility] BellevueStart: 55-57-9847zpapofrectBIAnh Hidalgoity:H1 Procedures DateProcedureProcedure DetailPerforming ClinicianStart: 88-22-1178Rbsci X-ray abdomenDacandido Rodriguez DO Work Phone: Start: 61-52-7690QB scan of gallbladderDaabhinavd Michael DO Work Phone: Start: 01-84-2413Qbwof B Streptococcus CultureDO Charbel Rodriguez Work Phone: Start: 38-94-5145Mygvz ankle complete minimum 3 views Tessa Sanchez MD Work Phone: Start: 90-13-7571Halvl ankle complete minimum 3 views Tessa Sanchez MD Work Phone: H/O: sectionStatus post C-sectionDO Charbel Rodriguez Work Phone: Plan of Treatment DateCare ActivityDetailAuthorStart: 28-38-7466Krzyv microalbumin profile DTaP,Tdap,Td Vaccine (7 - Td or Tdap)[facility]tart: 09-14-9705Awqmqkt [Units/volume] in Serum or PlasmaKettering Health Hamiltontart: 52-19-6502JswayelgkKettering Health Hamiltontart: 87-61-2219Vjblytchr vaccinationProMedica Bay Park Hospitaltart: 08-14-2022 End: 86-92-4059Rmzxm metabolic 2000 panel - Serum or PlasmaBASIC METABOLIC PNL Lab Routine History of syncope Expected: 08/14/2022, Expires: 10/14/2022 [facility] Work Phone: Comment on above:Expected: 08/14/2022, Expires: 10/14/2022tart: 08-14-2022 End: 29-66-1700SHC panel - Blood by Automated countCBC Lab Routine Preop examination Anemia, unspecified type Expected: 08/14/2022, Expires: 10/14/2022 [facility] Work Phone: Comment on above:Expected: 08/14/2022, Expires: 10/14/2022tart: 22-77-2117E-ray of right ankleXR ankle RT min 3V*[facility]ontart: 82-28-8973GE Ankle - right GE 3 ViewsKettering Health Dayton Work Phone: Start: 77-04-0207Bzajrhcng vaccinationINFLUENZA (#1) [facility] Hospitaltart: 99-43-3427GIKOSJRTMW ASSESSMENTDEPRESSION ASSESSMENT [facility] Hospitaltart: 52-90-3693DIU TESTINGPAP TESTINGProMedica Bay Park Hospitaltart: 04-83-4102Vjujt microalbumin profileDTAP,TDAP,TD (1 - Tdap)[facility] Start: 25-09-8529UALTLRRKL C SCREENINGHEPATITIS C SCREENINGUniversity [facility]als [facility] Start: 90-56-3462AFE SCREENINGHIV SCREENINGProMedica Bay Park Hospitaltart: 2000 PNEUMOCOCCAL (1 - PCV)PNEUMOCOCCAL (1 - PCV)[facility]: 02-06-1995 COVID-19 VACCINE (#1)COVID-19 VACCINE (#1)[facility]: 1994 HEPATITIS B (1 of 3 - 3-dose series)HEPATITIS B (1 of 3 - 3-dose series) [facility] Medical CenterComprehensive metabolic 2000 panel - Serum or PlasmaOhio State Health SystemPatient EducationAnkle Sprain EDSelect [facility] Work Phone: Patient referralSelect Medical Specialty [facility] Work Phone: [place] [facility] HospitalXR Abdomen ViewsOhio State Health System End: 57-77-7529FC ANKLE GENERAL 3V AP/LAT/OBL RIGHTXR ANKLE GENERAL 3V AP/LAT/OBL RIGHT Radiology Routine Osteochondritis dissecans of right talus 1 Oc currences starting 11/02/2022 until [facility] Work Phone: Comment on above:1 Occur[facility] 11[facility]02[facility]20[facility] Immunizations Immunization DateImmunizationNotesCare KygrqwzbRhnxznwd99-81-5618jeoffyj toxoid, reduced diphtheria toxoid, and acellular pertussis vaccine, adsorbedDO Charbel Rodriguez Work Phone: [facility]05-11-2008 meningococcal polysaccharide vaccine (MPSV4)[facility] 02-32-8942eyanqvsaaaqer polysaccharide (groups A, C, Y and W-135) diphtheria toxoid conjugate vaccine (MCV4P)[facility]03-03-2000 diphtheria, tetanus toxoids and acellular pertussis vaccine, unspecified formulationOhio State Health System03-03-2000measles, mumps and rubella virus vaccineOhio State Health System03-03-2000poliovirus vaccine, inactivatedOhio State Health System08-04-1997diphtheria, tetanus toxoids and acellular pertussis vaccine, unspecified formulationOhio State Health System04-01-1996diphtheria, tetanus toxoids and pertussis vaccineOhio State Health System04-01-1996haemophilus influenzae type b vaccine, conjugate unspecified formulationOhio State Health System 03-30-5355pqmcqmtbo B vaccine, pediatric or pediatric/adolescent dosageOhio [facility]measles, mumps and rubella virus vaccine [facility]04-01-1996trivalent poliovirus vaccine, live, oralOhio [facility] System10-10-1995diphtheria, tetanus toxoids and pertussis vaccineOhio [facility] System10-10-1995haemophilus influenzae type b vaccine, conjugate unspecified formulationOhio [facility] Health System10-10-1995hepatitis B vaccine, pediatric or pediatric/adolescent dosageOhio State Health System10-10-1995trivalent poliovirus vaccine, live, oralOhio [facility] System1994diphtheria, tetanus toxoids and pertussis vaccineOhio [facility] System1994haemophilus influenzae type b vaccine, conjugate unspecified formulationOhio [facility] System1994hepatitis B vaccine, pediatric or pediatric/adolescent dosageOhio [facility] System1994trivalent poliovirus vaccine, live, oralOhio State Health SystemNEGATED: Highlighted row has not occurred!02-54-7548xckbrzpeg, seasonal, injectablePatient ObjectionDavid Michael Other [facility] Payers DatePayer CategoryPayerPolicy [id number] [id number] [id number] 34-34-2534Hxnjxdu7.2.840.080477.1.13.159.2.7.3.707153.60785-84-9210Xmpessg [id number] 2.16.840.1.657648.3.57[id number] 2.16.840.1.740652.3.57[id number] 2.16.840.1.564887.3.579.[id number] 2.16.840.1.003617.3.57[id number] 2.16.840.1.428189.3.57[id number] 2.16.840.1.770822.3.579.2.776784-39-1407Feeelyy0778285 2.16.840.1.344881.3.579.2.204219-98-5399Uibdgjs6346213 2.16.840.1.835150.3.579.2.686145-37-1869Rriozhm2090435 2.16.840.1.859944.3.579.2.567250-14-4210Udgwrrv3125974 2.16.840.1.313616.3.579.2.077706-58-9926Mzppscp0426160 2.16.840.1.088512.3.579.2.423311-51-4009Lydvzan6831592 2.16.840.1.425538.3.579.2.893855-58-0614Qammbii8891951 2.0.1.206033.3.579.2.150866-18-5999Dfrhwny2159758 2.0.1.363149.3.579.2.736677-09-2450Axftgxx0709968 2.0.1.320340.3.579.2.509477-25-9435Acgteke0022005 2.0.1.597121.3.579.2.899164-71-8119Ubedzsb0760267 2..1.832549.3.579.2.551056-69-7200Mmijcub1860978 2..1.265049.3.579.2.333771-87-4319Stwqkht8914124 2..1.423204.3.579.2.097629-65-0759Ixysvjr351569 2..1.127070.3.579.2.970871-46-5166Cducdlk561735 2..1.483510.3.579.2.517950-10-9828Lckyulw884635 2..1.322301.3.579.2.123653-59-2174Klcnrpv86056 2..1.226550.3.579.2.1259 [id number] [id number] 2.16.840.1.173975.3.579.2.896Tavuvaj85541871 2.16.840.1.996784.3.579.2.531 Wlkrdlt94337768 2.16.840.1.836742.3.579.2.795Wmyoupb45640784 2.16.840.1.793648.3.579.2.531 Social History DateTypeDetailFacilityStart: 07-07-2022 End: 62-88-4891Fekarbf smoking status NHISEx-smoker (finding)[facility]: 47-95-7576Uiu [facility]: 79-65-9869Sipvlqm smoking status NHISOccasional tobacco smokerProMedica Bay Park Hospitaltart: 10-03-2018 End: 09-95-5610Kjqojia use and exposureSmokeless tobacco non-userProMedica Bay Park Hospitaltart: 01-01-2019 End: 60-20-7062Lknhvxj intakeCurrent non-drinker of alcohol (finding)[facility] Hospitaltart: 46-89-7053Kqc Assigned At BirthNot on fileProMedica Bay Park Hospitaltart: 08-14-2022 End: 18-29-1855Gmd Assigned At [facility] [employer] Other End: 27-20-7937Ccxamaz of tobacco useCurrent smokerUniversity Hospitals Ahuja Medical Center Work Phone: End: 48-90-3574Pbrlydv of tobacco useCigarette SmokerUniversity Hospitals Ahuja Medical Center Work Phone: Start: 08-14-2022 End: 54-79-6983Gdyakzrbnd smoked current (pack per day) - Reported0.3Cmemorial hospital ClinicStart: 08-04-2022 End: 78-73-6806Lxpfwxpy to SARS-CoV-2 (event)Not sureUniversity Hospitals Ahuja Medical Center Work Phone: National Score (1-100), lower number is lower risk86 [facility] Hospitaltart: 01-05-2025 End: 24-19-6767ElnCccyzh (finding)[facility] Clinical Notes 05-23-2022 to 06-21-2025 Note Date & TednNxjtUaqdpphd54-21-7358 Evaluation note* Author Charbel Rodriguez [facility] SystemAuthoredAugust 2024 10:26amThe above note written by ___Roland Gomez____ acting as human recorder, note dictated by Dr. Barahona .I performed the above HPI, ROS, and Examination. I formulated and dictated the treatment plan and was present for entire encounter. Charbel Rodriguez D.O. Author Charbel Rodriguez [facility] SystemAuthoredSept2024 3:13pmThe above note written by ___Roland Gomez____ acting as human recorder, note dictated by Dr. Barahona .I performed the above HPI, ROS, and Examination. I formulated and dictated the treatment plan and was present for entire encounter. Charbel Rodriguez D.O. [facility] Work Phone: 1(206) 582-807806-25-2025 Chief complaint+Reason for visit Narrative * Chief Complaint Admit Date Referral [facility] April 21, 2025 8:4 7am wm May 31, 2025 9:4 4am discuss metformin/keto gummies June 212024 9:33am Reason for Visit Admit Date BMI 45.0-49.9, adult April 21, 2025 8:4 7am Bradycardia April 21, 2025 8:47 am Metabolic syndrome X April 21, 2025 8:4 7am Metabolic syndrome X June 21, 2025 9 :33am Near syncope June 21, 2025 9: 33am [facility] Work Phone: 1(701) 939-462406-25-2025 Chief complaint+Reason for visit Narrative * Chief Complaint Admit Date Referral [facility] April 21, 2025 8:4 7am wm May 31, 2025 9:4 4am discuss metformin/keto gummies June 212024 9:33am sore throat June 29, 2025 2:19pm Reason for Visit Admit Date BMI 45.0-49.9, adult April 21, 2025 8:4 7am Bradycardia April 21, 2025 8:47 am Metabolic syndrome X April 21, 2025 8:4 7am Metabolic syndrome X June 21, 2025 9 :33am Near syncope June 21, 2025 9: 33am Acute cough June 29, 2025 2:19pm Metabolic syndrome X June 29, 2025 2:19pm [facility] Work Phone: 1(201) 367-385606-25-2025 Evaluation note* Diagnosis Onset Date Resolution Status Admit Date BMI 45.0-49.9, adult acuteJune 2024 8:47amBradycardiaacuteJune 2024 8:47amMetabolic syndrome XacuteJune 2024 8:47am [facility] Work Phone: 1(360) 543-569506-25-2025 Evaluation note* Diagnosis Onset Date Resolution Status Admit Date BMI 45.0-49.9, adult acuteJune 2024 8:47amBradycardiaacuteJune 2024 8:47amMetabolic syndrome XacuteJune 2024 8:47amMetabolic syndrome XacuteAugust 2024 9:33amNear syncopeacuteAugust 2024 9:33am [facility] Work Phone: 1(277) 584-193105-22-2025 Chief complaint+Reason for visit Narrative * Chief Complaint Admit Date R79.89 March 18, 2025 9:02a m Referral [facility] April 21, 2025 8:4 7am [facility] Work Phone: 1(988) 691-911905-22-2025 Chief complaint+Reason for visit Narrative * Chief Complaint Admit Date R79.89 March 18, 2025 9:02a m Referral [facility] April 21, 2025 8:4 7am Reason for Visit Admit Date BMI 45.0-49.9, adult April 21, 2025 8:4 7am Bradycardia April 21, 2025 8:47 am Metabolic syndrome X April 21, 2025 8:4 7am [facility] Work Phone: 1(351) 366-499605-22-2025 Chief complaint+Reason for visit Narrative * Chief Complaint Admit Date R79.89 March 18, 2025 9:02a m [facility], [facility] 8:4 7am wm May 31, 2025 9:4 4am Reason for Visit Admit Date BMI 45.0-49.9, adult April 21, 2025 8:4 7am Bradycardia April 21, 2025 8:47 am Metabolic syndrome X April 21, 2025 8:4 7am [facility] Work Phone: 1(896) 878-112303-17-2025 Radiology Diagnostic study [facility] [address] [place] [address] Ultrasound Report Signed Patient: Edith Wells MR#: [id number] : 1995 Acct:[id number] Age/Sex: 29 / F ADM Date: 5 Loc: Room: Type: [facility] Attending Dr: Charbel Rodriguez DO Ordering Provider: Charbel Rodriguez DO Date of Service: 01/11/25 US/US gall bladder: R11.2 - Nausea with vomiting, unspecified Copies to: Charbel Rodriguez DO~ LIMITED ABDOMINAL ULTRASOUND: CLINICAL HISTORY: Nausea and vomiting. COMPARISON: None TECHNIQUE: Grayscale and color Doppler images of the right upper quadrant organswere obtained. FINDINGS: Pancreas: Visualized portions appear unremarkable. Liver: Unremarkable. Gallbladder: Unremarkable. CBD: 2.6 mm. US/US gall bladder IMPRESSION: NO ACUTE PROCESS. . Impression dictated by: Shivam Russo Jr., D.O.01/11/2025 12:21 PM Dictation Location: [facility]-22 Tech: Kelsie Gimenez Transcribed By: ERMELINDA 01/11/25 1221 Dictated By: Shiavm Russo Jr, DO 01/11/25 1220 Signed By: 01/11/25 1221 [facility]03-10-2025 Evaluation note* Author Charbel Rodriguez [facility] SystemAuthoredMercy Health Allen Hospital 2024 12:54pmThe above note written by ___Roland Gomez____ acting as human recorder, note dictated by Dr. Barahona .Ambulation is unassisted and appears normal [facility] Work Phone: 1(321) 390-681303-10-2025 Evaluation note* Author Charbel Rodriguez [facility] 2024 12:54pmThe above note written by ___Roland Gomez____ acting as human recorder, note dictated by Dr. Barahona .Ambulation is unassisted and appears normal Author Charbel Rodriguez [facility] 2024 10:34amThe above note written by ___Roland Gomez____ acting as human recorder, note dictated by Dr. Barahona .I performed the above HPI, ROS, and Examination. I formulated and dictated the treatment plan and was present for entire encounter. Charbel Rodriguez D.O. [facility] Work Phone: 1(850) 658-408108-07-2023 Evaluation note* Encounter Date Diagnosis Assessment Notes Treatment Notes Treatment Clinical Notes May, Depression (ICD-10 - F32.9) [facility] Other 07-12-2023 Evaluation note* Encounter Date Diagnosis Assessment Notes Treatment Notes Treatment Clinical Notes Apr, Chest pain (ICD-10 - R07.9) She went to the ER for evaluation of chest pain on 04-26-23, she voices that she was told she had PVC's which she has had before. She did stop the Adipex which appeared to cause the chest pain and herelevated blood pressure. She is not taking Losartan. Apr,Weight gain (ICD-10 - R63.5)She is not able to take Adipex anymore because it caused chest pain and elevated blood pressure. She would like to discuss alternative weight loss medication. I did explain to her that other medications are expensive and it is unlikely that her insurance will cover it. She previously lost weight byeating meat and vegetables. I did recommend that she return to doing this. She is to cut out her intake of carbs and sugars. Stay active. Apr,epression (ICD-10 - F32.9)She was going to re-start Zoloft because she [...] her dose should be increased or not. [facility] Other 06-30-2023 Evaluation note* Encounter Date Diagnosis Assessment Notes Treatment Notes Treatment Clinical Notes Mar, Weight gain (ICD-10 - R63.5) [facility] Other 06-21-2023 NoteHNO ID: [id number] Author: Tessa Sanchez MD Service: ? Author [...] and is of normal mood and affect. [facility] 07/02/2022 Gait Cycle: Normal Yes, Limp: [...] records. This note was partially generated using [employer] voice recognition system, and there may be some incorrect words, spellings, and punctuation that were not noted in checking the note before saving. Tessa Sanchez M.D.[facility]06-21-2023 History of Present illness Narrative* Tessa Sanchez [...] records. This note was partially generated using [employer] voice recognition system, and there may be some incorrect words, spellings, and punctuation that were not noted in checking the note before saving. Tessa Sanchez M.D. documented in this encounterUniversity Hospitals Ahuja Medical Center06-16-2023 Evaluation note* Encounter Date Diagnosis Assessment Notes Treatment Notes Treatment Clinical Notes Mar, Depression (ICD-10 - F32.9) She does continue with above medication daily as directed. Mar,Fatigue (ICD-10 - R53.83)She voices that her energy is terrible. She feels sluggish, she can be up for 8 hours and then needs to take a nap. She is unsure if this is weight related. She does eventually want to have another baby and is currently using condoms for control. I would like to order a TSH to be sure thereis nothing abnormal with her thyroid. Mar,Weight gain (ICD-10 - R63.5)Due to her ankle issues she had been unable to exercise. She is trying to get back into exercise byusing her Elliptical. She is eating fewer carbs and mashed potatoes. She is trying to eat more homecooked meals. She would like to be on medication to help with weight loss. [facility]. If she notices palpitations or has any issue with the Adipex then she would have to stop the medication right away. She is in agreement to this and will cautiously try the A dipex. She understands that she needs to make [...] and then return in 1 month. Side effects/risks/benefits of medication were reviewed. Mar,OtherShe had her IUD removed and is noticing hot flashes. I did advise her that it can take up to 3 months for her hormones to regulate after having the IUD removed. When she is ready to start trying to get she should begin taking vitamins. For now she can take a multivitamin daily ([employer] Complete) [facility] Other 05-17-2023 NoteHNO ID: [id number] Author: Tessa Sanchez MD Service: ? Author [...] and is of normal mood and affect. [facility] 07/02/2022 Gait Cycle: Normal Yes, Limp: [...] records. This note was partially generated using [employer] voice recognition system, and there may be some incorrect words, spellings, and punctuation that were not noted in checking the note before saving. Tessa Sanchez M.D.[facility]05-05-2023 Miscellaneous Notes* Telephone Encounter - Lizzette Adams RN - 03/01/2023 10:21 AM EDT Faxed today at 10:20am. Lizzette Adams RN * Telephone Encounter - Margy Contreras Pss - 02/28/2023 4:08 PM EDT Patient wants to get physical therapy at [facility] in [place]. Has been approved by [facility] and she can now schedule. Asking for recent therapy order from Dr Sanchez be faxed to [facility] in [place] at [phone]. documented in this encounterUniversity Hospitals Ahuja Medical Center03-17-2023 Miscellaneous Notes* Telephone Encounter - Lizzette [...] calling: self Call patient at: at home [phone] (home) [phone] (cell) Was an appointment scheduled: No Closing statement: Results or non-symptom based questions: Thank you for calling [facility], your call will be returned within [...] back to the office to update CALL [phone] documented in this encounterUniversity Hospitals Ahuja Medical Center03-08-2023 NoteHNO ID: [id number] Author: RT Rubina(R) Service: Radiology Author Type: [...] Cespedes RT RT(R) January 02, 2023 4:10 [facility]03-08-2023 NoteHNO ID: [id number] Author: Tessa Sanchez MD Service: ? Author [...] records. This note was partially generated using [employer] voice recognition system, and there may be [...] Past Histories independently gathered by the clinical learning support assistant and the remaining scribed note accurately describes my personal service to the patient. Tessa Sanchez M.D.[facility]03-08-2023 History of Present illness Narrative* Blaise Glynn, [...] 02, 2023 4:10 PM documented in this encounterUniversity Hospitals Ahuja Medical Center03-08-2023 History of Present illness Narrative* Tessa [...] records. This note was partially generated using [employer] voice recognition system, and there may be some incorrect words, spellings, and punctuation that were not noted in checking the note before saving. Scribe Attestation: By signing my name below, I, Pippa Moss, attest that this documentation has been prepared under the direction and in the presence of Tessa Sanchez MD. Electronically Signed: Pippa alan Moss, January 02, 2023 4:30 PM I agree with the Chief Complaint, ROS, and Past Histories independently gathered by the clinical learning support assistant and the remaining scribed note accurately describes my personal service to the patient. Tessa Sanchez M.D. documented in this encounterUniversity Hospitals Ahuja Medical Center02-24-2023 Miscellaneous Notes* Telephone Encounter - Vinay Corona RN - 12/21/2022 5:34 PM EST This RN called and spoke with patient. Letter sent via [employer] she report she received it. 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 She was grateful for the call. [...] that prevented her form having PT. CALL [phone] * Telephone Encounter - Autumn Clayton - 12/21/2022 2:59 PM EST Patient calling, very concerned this has not been addressed. Due to RTW on 12/24/22. Still in a lot of pain. Forwarded to NT to get symptom details. SHAYAN Hobbs Patient Operations Support Team (POST) Please note: Please do not re-route phone encounters back to this agent, please send to [facility] pool. Agent works in call center and [...] with update Please advise documented in this encounterUniversity Hospitals Ahuja Medical Center02-24-2023 Miscellaneous Notes* Telephone Encounter - Vinay [...] office to complete them. documented in this encounterUniversity Hospitals Ahuja Medical Center02-10-2023 Evaluation note* Encounter Date Diagnosis Assessment Notes Treatment Notes Treatment Clinical Notes Nov, Viral URI with cough (ICD-10 - J 06.9) Discussed diagnosis with patient. Advised patient that will treat as viral URI.Advised that she hashad string of viral illnesses over the last [...] treatment plan. Patient left in stable condition [facility] Other 01-23-2023 Evaluation note* Encounter Date Diagnosis Assessment Notes Treatment Notes Treatment Clinical Notes Oct, Cough (ICD-10 - R05.9) Oct,Sore throat (ICD-10 - J02.9) Oct,Headache (ICD-10 - R51.9) Oct,ongestion of nasal sinus (ICD-10 - R09.81) [facility] Other 01-18-2023 NoteHNO ID: [id number] Author: RT Marquis(R) Service: Radiology Author Type: [...] Marquis(R) November 14, 2022 4:05 [facility]01-18-2023 History of Present illness Narrative* [...] 14, 2022 4:05 PM documented in this encounterUniversity Hospitals Ahuja Medical Center01-18-2023 Evaluation note* Encounter Date Diagnosis Assessment Notes Treatment Notes Treatment Clinical Notes Oct, Leukocytosis (ICD-10 - D72.829) [facility] Other [id number] NoteHNO ID: [id number] Author: Tessa Sanchez MD Service: ? Author [...] and follow-up in 4 weeks Tessa Sanchez [facility]01-17-2023 History of Present illness Narrative* [...] weeks Tessa Sanchez MD documented in this encounterUniversity Hospitals Ahuja Medical Center01-16-2023 Evaluation note* Encounter Date Diagnosis Assessment Notes Treatment Notes Treatment Clinical Notes Oct, Nausea (ICD-10 - R11.0) She voices that she does not feel right . I would like to rule out . I do not want to addany medication until we know for sure if she is or not. She is agreeable to this and will have this done at the [facility] lab. She can call for results. She voices that this feels different then when her heart is acting up. Oct,Light headedness (ICD-10 - R42) Oct,Fatigue (ICD-10 - R53.83)She voices that all she wants to do is sleep, she has been very exhausted. I am going to order a viral panel and a mono test to be done as well to rule out abnormalities. She is to have the lab drawn today and call for the results tomorrow. Oct,bdominal pain (ICD-10 - R10.9)She voices that she did have alot of gas and abdominal pain, this has improved. I am going to ordertesting to rule out any abnormalities. Oct,Other2:54 PM - 3:02 PM [facility] Other 12-14-2022 NoteHNO ID: [id number] Author: Tessa Sanchez MD Service: ? Author [...] follow-up in 6 weeks for jeff Sanchez [facility]12-14-2022 History of Present illness Narrative* [...] follow-up in 6 weeks for jeff Sanchez MD documented in this encounterUniversity Hospitals Ahuja Medical Center12-02-2022 Miscellaneous Notes* Telephone Encounter - Lizzette [...] pm. Patient requesting a return call through #[phone] #[phone]. The second number is her boyfriends line, Elias. Patient gives okay to leave me ssage with Elias if needed. Please advise. documented in this encounterUniversity Hospitals Ahuja Medical Center11-16-2022 NoteHNO ID: [id number] Author: Tessa Sanchez MD Service: ? Author [...] follow up in 4 weeks. Tessa Sanchez [facility]11-16-2022 NoteHNO ID: [id number] Author: Alfred Campo Cast Service: ? Author Type: ? Type: Progress Notes Filed: 09/12/2022 4:10 PM Note Text: PT ASSESSMENT - CASTING ROOM Edith presents for cast removal. Applied pneumatic aircast walker(HAD PRIOR TO SURGERY) to Right leg non-weight bearing Patient has been instructed in Care of boot.. Alfred Campo Cast Beeper: [id number] Health System11-16-2022 History of Present illness Narrative* Tessa Sanchez [...] weeks. Tessa Sanchez MD documented in this encounterUniversity Hospitals Ahuja Medical Center11-16-2022 History of Present illness Narrative* Alfred Campo Cast - 09/12/2022 4:04 PM EST PT ASSESSMENT - CASTING ROOM Edith presents for cast removal. Applied pneumatic aircast walker(HAD PRIOR TO SURGERY) to Right leg non-weight bearing Patient has been instructed in Care of boot.. Alfred Campo Cast Beeper: [id number] documented in this encounterUniversity Hospitals Ahuja Medical Center11-07-2022 Miscellaneous Notes* Telephone Encounter - Lizzette [...] until 09/12. Please advise. documented in this encounterUniversity Hospitals Ahuja Medical Center11-07-2022 NoteHNO ID: [id number] Author: Lizzette Adams RN Service: ? Author [...] was the physician present today. Lizzette Adams RNHolzer Health System11-06-2022 Miscellaneous Notes* Telephone Encounter - Eyad Shelby [...] MD Orthopaedic Surgery, PGY-3 documented in this encounterUniversity Hospitals Ahuja Medical Center11-02-2022 NoteHNO ID: [id number] Author: Alfred Griffith Service: ? Author Type: ? Type: Progress Notes Filed: 08/29/2022 3:44 PM Note Text: PT ASSESSMENT - CASTING ROOM Edith presents for Application of cast. Applied short cast: to Right leg non-weight bearing Patient has been instructed in Care of cast.. Alfred Campo Cast Beeper: [id number] Health System11-02-2022 History of Present illness Narrative* Alfred aCmpo Cast - 08/29/2022 3:40 PM EDT PT ASSESSMENT - CASTING ROOM Edith presents for Application of cast. Applied short cast: to Right leg non-weight bearing Patient has been instructed in Care of cast.. 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, 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 Reason for block: post-op pain management/at surgeon's [...] August 28, 2022 TIME: 1:00 PM CSN: [id number] NoteHNO ID: [id number] Author: GEORGIE Tinsley Service: Anesthesiology Author Type: Safety Companion Type: Anesthesia Procedure Notes Filed: 08/28/2022 10:57 [...] August 28, 2022 TIME: 10:56 AM CSN: [id number] NoteHNO ID: [id number] Author: Mike Alcantar MD Service: Anesthesiology Author Type: Anesthesiologist Type: Anesthesia Procedure Notes Filed: 08/28/2022 9:35 AM Note Text: ANESTHESIOLOGY PROCEDURE NOTE Peripheral Nerve Block General Information Procedure Start Time/Medication Administration: 08/28/2022 9:16 AM Procedure End time: 08/28/2022 9:24 AM Patient location during procedure: pre-op Timeout Performed Pre-procedure: timeout performed (920) Consent Obtained: Yes 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 Sacnhez, Just wanted to keep you in the [...] PA-C - 08/15/2022 9:45 AM EDT Good ana maria Sanchez, This patient was seen by me for virtual PACC for upcoming ARTHROSCOPY ANKLE EXCISION 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 - Right scheduled with you on 08/28/2022 at [facility] under General. She had her pre-op [...] Kasi Mathur PA-C PACC documented in this encounterUniversity Hospitals [facility]hu[facility]10-18-2022 Instructions* Patient Instructions* Kasi Mathur PA-C - 08/14/2022 11:33 AM EDT Lab in [place]: [facility], [address] [address] PATIENT PREOPERATIVE INSTRUCTIONS Tessa Sanchez MD has scheduled you for your procedure at this surgery center: [facility]: [phone] --[address] [address]. Please read below carefully for your personalized [...] Procedures: - YOU MUST HAVE A RESPONSIBLE MARKET DEVELOPMENT MANAGER TAKE YOU HOME. A HIDE STRETCHER HAND OR FUR FLOOR WORKER CANNOT BE MADE A RESPONSIBLE MARKET DEVELOPMENT MANAGER. - We recommend that a responsible person [...] Advance Directive, please fax a copy to [phone] or email to for it to be [...] day. Kasi Mathur PA-C documented in this encounterUniversity Hospitals Ahuja [facility] Center10-18-2022 History and physical note * Kasi [...] fevers. Neuro: No history of TIA's, stroke, DRAIN LAYER tumor, impaired sensorium, hemiplegia, paraplegia or quadraplegia. 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 Predominant underlying rhythm was Sinus Rhythm. No Isolated SVEs, SVE Couplets, or SVE Triplets were present. Isolated VEs were frequent (8.2%, 18781), and no VE Couplets or VE Triplets [...] 11:04 AM PAGER/CONTACT #: documented in this encounterUniversity Hospitals Ahuja [facility] Center10-17-2022 Evaluation note* Encounter Date Diagnosis Assessment Notes Treatment Notes Treatment Clinical Notes Jul, Lumbar pain (ICD-10 - M54.50) She was seen at the ER on 08-01-22 for evaluation, an x-ray was done. I did independently review thex-ray report and ER report. She did take [...] She has been in a boot for herright ankle since April (2021). Jul,I (sacroiliac) joint dysfunction (ICD-10 - M53.3)I would like to have her take steroids, I am going to prescribe this and she can discuss this treatment with her retail sales clerk. She is having surgery on 08-28-22. Guidance is given on how to take the medication. Side effects/risks/benefits of medication were reviewed. Do not drink [...] she has had surgery for her foot. Jul,therShe voices that her right foot is not getting better so [facility] she was referred to him by Dr. Lamb. She thinks it is bone that is trying to heal. [employer] Other 10-12-2022 NoteHNO ID: [id number] Author: Tessa Sanchez MD Service: ? Author Type: Physician Type: Progress Notes Filed: 2022 12:58 PM Note Text: New Patient Referring Physician: Charbel Wells is a 27 year old female referred by Charbel Lamb for her right foot pain. She states [...] at times. Consultation requested by Dr. Charbel Lamb for an opinion regarding her right foot [...] Scan The patient's pertinent medical history from [facility] has been reviewed. PFOMIS forms have [...] the patient, and the (more content not included)...[facility]10-12-2022 History of Present illness Narrative* Tessa Sanchez MD - 2022 11:30 AM EDT New Patient Referring Physician: Charbel Lamb Edith Wells is a 27 year old female referred by Charbel Lamb for her right foot pain. She states [...] at times. Consultation requested by Dr. Charbel Lamb for an opinion regarding her right foot [...] Scan The patient's pertinent medical history from [facility] has been reviewed. PFOMIS forms have [...] records. This note was partially generated using [employer] voice recognition system, and there may be [...] Past Histories independently gathered by the clinical learning support assistant and the remaining scribed note accurately describes my personal service to the patient. Tessa Sanchez M.D. documented in this encounterUniversity Hospitals Ahuja [facility] Center07-27-2022 Evaluation note* Encounter Date Diagnosis Assessment Notes Treatment Notes Treatment Clinical Notes Apr, Anxiety (ICD-10 - F41.9) Apr,epression (ICD-10 - F32.9)She voices that things are good and she feels she is doing better. She is not crying as much and does not feel spacy . She feels this dose is adequate and would like to continue with this dose. I jina l provide her with a refill today. I did recommend that she stay on the medication for one year from when started on it. Apr,nkle fracture (ICD-10 - S82.899A)right Lori has seen an talent sourcing specialist twice for a right ankle fracture. [...] drink milk daily. She will see Dr. Lamb soon and an x-ray willbe done at that time. I did recommend that she ask him if he thinks she needs a DEXA scan done to test her bone strength or not. She can keep me posted. Apr,ther9:55 AM - 10:05 AM [employer] Other Evaluation noteNo assessment information available [facility] Work Phone: Evaluation note* Diagnosis Osteochondritis dissecans of right talus- Primary documented in this encounter [facility] CenterEvaluation noteNo InformationNort Digital [employer] Other Evaluation note* Diagnosis Preop examination- Primary [...] of right talus [facility]* Diagnosis Leukocytosis, unspecified type- Primary Osteochondritis dissecans of right talus documented in this [facility]* 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 documented in this encounter [facility] note* Diagnosis Osteochondritis dissecans of right talus- Primary documented in this [facility]* Diagnosis Osteochondritis dissecans of right talus- Primary documented in this [facility]* Diagnosis Osteochondritis dissecans of right talus- Primary documented in this encounter [facility]* Diagnosis Osteochondritis dissecans of right talus- Primary documented in this encounter [facility] note* Diagnosis Osteochondritis dissecans of right talus- Primary documented in this [facility]* Diagnosis Osteochondritis dissecans of right talus- Primary documented in this [facility]* Diagnosis Osteochondritis dissecans of right talus- Primary documented in this encounter [facility]* Diagnosis Osteochondritis dissecans of right talus documented in this encounter [facility]* Diagnosis Onset Date Resolution Status Admit Date BMI 45.0-49.9, adult acuteMarch 2024 11:51amHyperglycemiaacuteMar 2024 11:51amIron deficiency anemiaacuteMar2024 11:51amNausea & vomitingacuteMar 2024 11:51amWeight gainacuteMar 2024 11:51amWellness examinationacute January 04, 2025 11:51am [facility] Work Phone: History general Narrative - Reported* Type Description Date Medical History reflux Medical Historymenstrual irregularityMedical HistoryvertigoMedical History anxietyMedical Historyankle fx rightSurgical HistoryT & [id number] History Mole removalSurgical HistoryC sectionSurgical HistoryIUD -Bruner03/31/17Surgical HistoryC-section11/28/21Hospitalization HistorySee Above [employer] Other History general Narrative - Reported* Type Description Date Medical History reflux Medical Historymenstrual irregularityMedical HistoryvertigoMedical History anxietyMedical Historyankle fx rightSurgical HistoryT & [id number] History Mole removalSurgical HistoryC sectionSurgical HistoryIUD -Bruner03/31/17Surgical HistoryC-section11/28/21Surgical Historyright ankle /1/22Hospitalization HistorySee Above [facility] Other Hisjonx general Narrative - Reported* Type Description Date Medical History reflux Medical Historymenstrual irregularityMedical HistoryvertigoMedical History anxietyMedical Historyankle fx rightSurgical HistoryT & [id number] History Mole removalSurgical HistoryC sectionSurgical HistoryIUD -Bruner03/31/17Surgical HistoryC-section11/28/21Surgical Historyright ankle iblvwns62/1/22Surgical History IUD removed03/06/23Hospitalization HistorySee Above [facility] [employer] [facility] Other Reason for referral (narrative)* Diagnostic Procedure Only (Routine) - Pending ReviewSpecialtyDiagnoses / ProceduresReferred By ContactReferred To ContactXR IMAGING Diagnoses Osteochondritis dissecans of right talus Procedures XR ANKLE GENERAL 3V AP/LAT/OBL RIGHT RADEX ANKLE COMPLETE MINIMUM [address] [place] [address] [place] [address] Xr Imaging Referral IDStatusReasonStart DateExpiration DateVisits RequestedVisits [id number] Review Auto-Generated Referral / [facility] for referral (narrative)* - Pending ReviewSpecialty Diagnoses / ProceduresReferred By ContactReferred To ContactPhysical Therapy Diagnoses Osteochondritis dissecans of right talus Procedures CONSULT [place] [address] [place] [address] Referral IDStatusReasonStart DateExpiration DateVisits RequestedVisits [id number] Review/ [facility] for referral (narrative)* Diagnostic Procedure Only (Routine) - ClosedSpecialtyDiagnoses / ProceduresReferred By ContactReferred To ContactXR IMAGING Diagnoses Osteochondritis dissecans of right talus Procedures XR ANKLE GENERAL 3V AP/LAT/OBL RIGHT RADEX ANKLE COMPLETE MINIMUM [address] [place] [address] [place] [address] [place] [address] Referral IDStatusReasonStsouthaven DateExpiration DateVisits RequestedVisits [id number] Auto-Generated Referral / [facility] for referral (narrative)* Diagnostic Procedure Only (Routine) - ClosedSpecialtyDiagnoses / ProceduresReferred By ContactReferred To ContactXR IMAGING Diagnoses Osteochondritis dissecans of right talus Procedures XR ANKLE GENERAL 3V AP/LAT/OBL RIGHT RADEX ANKLE COMPLETE MINIMUM [address] [place] [address] [place] [address] [place] [address] Referral IDStatusReasonStsouthaven DateExpiration DateVisits RequestedVisits [id number] Auto-Generated Referral / [facility] for referral (narrative)No reason for referral information availableWhite Hospital Work Phone: Summary Purpose Family History Relationship Condition Age at Onset Recorded Date/T domingo Not Specified No pertinent family history Unknown Relationship Condition Age at Onset Recorded Date/T domingo Not Specified No pertinent family history Unknown grandparentDeceasedUnknownAneurysmUnknowngrandparentFamily history of coronary artery bypass graftUnknowngrandparentHeart diseaseUnknownDeceasedUnknown Relationship Condition Age at Onset Recorded Date/T domingo Not Specified No pertinent family history Unknown maternal grandfatherDeceasedUnknownAneurysmUnknownHigh blood cholesterolUnknown HypertensionUnknownHeart diseaseUnknownmaternal grandmotherFamily history of coronary artery bypass graftUnknownCalculus of kidneyUnknownDiabetes mellitus Unknownpaternal grandfatherHeart diseaseUnknownDeceasedUnknownpaternal grandmotherDeceasedUnknownbrotherDeceasedUnknownCerebral palsyUnknownbrotherHigh blood cholesterolUnknownAsthmaUnknownObesityUnknownsonAutistic disorderUnknown Advance Directives Advance Directive Response Recorded Date/ Time Advance Directives No September 2:17pm Advance Directive Response Recorded Date/ Time Advance Directives No January 12 9:18pm Advance Directive Response Recorded Date/ Time Advance Directives No June 8:43am Chief Complaint and Reason for Visit Chief Complaint rt ankle pain Chief Complaint Unknown Chief Complaint Unknown strep screen Chief Complaint Admit Date check up/discuss wt January 04, 2025 11: 51am Reason for Visit Admit Date BMI 45.0-49.9, adult January 04, 2025 11 :51am Hyperglycemia January 04, 2025 11: 51am Iron deficiency anemia January 04, 2025 11:51am Nausea & vomiting January 04, 2025 11: 51am Weight gain January 04, 2025 11: 51am Wellness examination January 04, 2025 11 :51am Chief Complaint Admit Date check up/discuss wt January 04, 2025 11: 51am Z00.00 January 04, 2025 12: 53pm R11.2 January 11, 2025 10: 06am Chief Complaint Admit Date check up/discuss wt January 04, 2025 11: 51am Z00.00 January 04, 2025 12: 53pm R11.2 January 11, 2025 10: 06am review GB US/abd xray January 13, 2025 9 :47am Reason for Visit Admit Date BMI 45.0-49.9, adult January 04, 2025 11 :51am Hyperglycemia January 04, 2025 11: 51am Iron deficiency anemia January 04, 2025 11:51am Nausea & vomiting January 04, 2025 11: 51am Weight gain January 04, 2025 11: 51am Wellness examination January 04, 2025 11 :51am Hyperglycemia January 13, 2025 9:4 7am Iron deficiency anemia January 13, 2025 9:47am Nausea & vomiting January 13, 2025 9:4 7am Weight gain January 13, 2025 9:4 7am Reason for Referral SpecialtyDiagnoses / ProceduresReferred By ContactReferred To ContactREHAB AND SPORTS THERAPY INS Diagnoses Osteochondritis dissecans of right talus Procedures CONSULT TO PHYSICAL THERAPY PHYSICAL THERAPY EVALUATION HIGH COMPLEX [address] [place] [address] [place] [address] [facility] [place] [address] [place] [address] Referral IDStatusReasonStart DateExpiration DateVisits RequestedVisits [id number] Review Auto-Generated Referral Additional Source Comments INFORMATION SOURCE (unrecogn ized section and content) DATE CREATED AUTHOR 05/08/2022 [facility] DATE CREATED AUTHOR AUTHOR'S ORGANIZ ATION 08/29/2022 [facility] DATE CREATED AUTHOR AUTHOR'S ORGANIZ ATION 11/15/2022 [facility] DATE CREATED AUTHOR AUTHOR'S ORGANIZ ATION 05/28/2023 [facility] DATE CREATED AUTHOR AUTHOR'S ORGANIZ ATION 05/26/2024 [facility] DATE CREATED AUTHOR AUTHOR'S ORGANIZ ATION 03/24/2025 [facility] Care Teams (unrecognized sec tion and content) Team Status: Inactive Member Role Status Dates Charbel Rodriguez DO Primary Care Provider Active Saurabh Friedman ProviderActive Team Status: Active Member Role Status Dates Charbel Rodriguez , Primary Care Provider Active Team MemberRelationshipSpecialtyStart DateEnd Date Charbel Rodriguez, DO [address] [place] [id number] PCP - [facility]07/07/18 Charbel Lamb [address] [place] [address] ReferringOrthopedi07/18/22Team MemberRelationshipSpecialtyStart DateEnd Date Charbel Rodriguez, DO [address] [place] [address] PCP - [facility]07/07/18 Charbel Lamb [address] [place] [address] ReferringOrthopedi07/18/22Team MemberRelationshipSpecialtyStart DateEnd Date Charbel Rodriguez, DO [address] [place] [address] PCP - [facility]07/07/18 Charbel Lamb [address] [place] [address] ReferringOrthopedics07/18/22Team MemberRelationshipSpecialtyStart DateEnd Date Charbel Rodriguez, DO [address] [place] [address] PCP - [facility]07/07/18 Charbel Lamb [address] [place] [address] ReferringOrthopedi07/18/22Team MemberRelationshipSpecialtyStart DateEnd Date Charbel Rodriguez, DO [address] [place] [address] [facility] Charbel Lamb [address] [place] [address] ReferringOrthopedics07/18/22Team MemberRelationshipSpecialtyStart DateEnd Date Charbel Rodriguez, DO [address] [place] [address] PCP - [facility]07/07/18 Charbel Lamb [address] [place] [address] ReferringOrthopedics07/18/22Team MemberRelationshipSpecialtyStart DateEnd Date Charbel Rodriguez, DO [address] [place] [address] PCP - [facility]07/07/18 Charbel Lamb [address] [place] [address] ReferringOrthopedics07/18/22Team MemberRelationshipSpecialtyStart DateEnd Date Charbel Rodriguez, DO [address] [place] [address] PCP - [facility]07/07/18 Charbel Lamb [address] [place] [address] ReferringOrthopedics07/18/22Team MemberRelationshipSpecialtyStart DateEnd Date Charbel Rodriguez, DO [address] [place] [address] PCP - [facility]07/07/18 Charbel Lamb [address] [place] [address] ReferringOrthopedics07/18/22Team MemberRelationshipSpecialtyStart DateEnd Date Charbel Rodriguez, DO [address] [place] [address] PCP - [facility]07/07/18 Charbel Lamb [address] [place] [address] ReferringOrthopedics07/18/22Team MemberRelationshipSpecialtyStart DateEnd Date Charbel Rodriguez, DO [address] [place] [address] [facility] - [facility]07/07/18 Charbel Lamb [address] [place] [address] ReferringOrthopedics07/18/22Team MemberRelationshipSpecialtyStart DateEnd Date Charbel Rodriguez, DO [address] [place] [address] PCP - [facility]07/07/18 Charbel Lamb [address] [place] [address] ReferringOrthopedics07/18/22Team MemberRelationshipSpecialtyStart DateEnd Date Charbel Rodriguez, DO [address] [place] [address] [facility] - [facility]07/07/18 Charbel Lamb [address] [place] [address] ReferringOrthopedics07/18/22Team MemberRelationshipSpecialtyStart DateEnd Date Charbel Rodriguez DO [address] [place] [id number] PCP - [facility]07/07/18 Charbel Lamb [address] [place] [address] ReferringOrthopedics07/18/22Team MemberRelationshipSpecialtyStart DateEnd Date Charbel Rodriguez DO [address] [place] [address] PCP - [facility]07/07/18 Charbel Lamb [address] [place] [address] ReferringOrthopedi07/18/22Team MemberRelationshipSpecialtyStart DateEnd Date Charbel Rodriguez DO [address] [place] [address] PCP - [facility]07/07/18 Charbel Lamb [address] [place] [address] ReferringOrthopedics07/18/22 Team Status: Active Member Role Status Dates Roland Gomez LPN Care Manager Active [place] [facility] Care ProviderActive Team Status: Active Member Role Status Dates Charbel Rodriguez DO Primary Care Provider Active S tart: March 11, 2024 Ryan OharaoAttending ProviderActiveStart: March 11, 2024 Team Status: Active Member Role Status Dates Charbel Girvin , DO Primary Care Provider Active S tart: March 16, 2024 Ryan Billyending ProviderActiveStart: March 16, 2024 Team Status: Active Member Role Status Dates Charbel Michael DO Primary Care Provider Active S tart: March 31, 2024 Ryan Don ProviderActiveStart: March 31, 2024 Team Status: Active Member Role Status Dates Charbel Michael DO Primary Care Provider Active S tart: April 13, 2024 Ryan Billyending ProviderActiveStart: April 13, 2024 Team Status: Inactive Member Role Status Dates Charbel Michael DO Primary Care Provider Active S tart: April 13, 2024 End: April 13lesley Ochoa ProviderActiveStart: April 13, 2024 End: April 13, 2024 Team Status: Active Member Role Status Dates Charbel Rodriguez DO Primary Care Provider Active S tart: April 13, 2024 Ryan Rodriguez , DOAttending ProviderActiveStart: April 13, 2024 Team Status: Inactive Member Role Status Dates Charbel Rodriguez DO Primary Care Provider Active S tart: April 13, 2024 End: April 13lesley Rodriguez , DOAttending ProviderActiveStart: April 13, 2024 End: April 13, 2024 Team Status: Active Member Role Status Ishan Rodriguez DO Primary Care Provider Active S tart: April 14, 2024 Ryan Rodriguez , DOAttending ProviderActiveStart: April 14, 2024 Team Status: Active Member Role Status Ishan Rodriguez DO Primary Care Provider Active S tart: April 25, 2024 Celia Davalos ProviderActiveStart: April 25, 2024 Team Status: Active Member Role Status Dates Charbel Rodriguez DO Primary Care Provide r, Attending Provider Active Start: May 28, 2024 Team Status: Active Member Role Status Dates Charbel Rodriguez DO Primary Care Provider Active S tart: June 24, 2024 Celia Davalos ProviderActiveStart: June 24, 2024 Team Status: Inactive Member Role Status Ishan Rodriguez DO Primary Care Provide r, Attending Provider Active Start: July 09, 2024 End: July 09, 2024 Team Status: Active Member Role Status Dates Charbel Girvin , DO Primary Care Provider Active S tart: November 06, 2024 Lester Moy DOAttending ProviderActiveStart: November 06, 2024 Team Status: Active Member Role Status Ishan Rodriguez DO Primary Care Provide r, Attending Provider Active Start: December 11, 2024 Team Status: Inactive Member Role Status Ishan Rodriguez DO Primary Care Provide r, Attending Provider Active Start: January 04, 2025 End: January 04, 2025 Team Status: Inactive Member Role Status Ishan Rodriguez DO Primary Care Provide r, Attending Provider Active Start: January 11, 2025 End: January 11, 2025 Team Status: Inactive Member Role Status Ishan Rodriguez DO Primary Care Provide r, Attending Provider Active Start: January 13, 2025 End: January 13, 2025 Team Status: Inactive Member Role Status Ishan Rodriguez DO Primary Care Provide r, Attending Provider Active Start: March 18, 2025 End: March 18, 2025 Team Status: Inactive Member Role Status Ishan Rodriguez DO Primary Care Provider Active S tart: March 18, 2025 End: March 18, 2025Dacandido Rodriguez DOAttending ProviderActiveStart: March 18, 2025 End: March 18, 2025 Team Status: Inactive Member Role Status Ishan Rodriguez DO Primary Care Provider Active S tart: April 21, 2025 End: April 21, 2025Srikanth Corarles ProviderActiveStart: April 21, 2025 End: April 21, 2025 Team Status: Inactive Member Role Status Ishan Rodriguez DO Primary Care Provider Active S tart: April 27, 2025 End: April 27Marshall Olmstead ProviderActiveStart: April 27, 2025 End: April 27, 2025 Team Status: Inactive Member Role Status Ishan Rodriguez DO Primary Care Provider Active S tart: May 31, 2025 End: May 31laney Vargas RDAttending ProviderActiveStart: May 31, 2025 End: May 31, 2025 Team Status: Inactive Member Role Status Ishan Rodriguez DO Primary Care Provider Active S tart: June 21, 2025 End: June 21, 2025Charbel Rodriguez DOAttending ProviderActiveStart: June 21, 2025 End: June 21, 2025 Team Status: Inactive Member Role Status Dates Charbel Rodriguez DO Primary Care Provider Active S tart: June 29, 2025 End: June 29, 2025Davicolumba Rodriguez DOAttending ProviderActiveStart: June 29, 2025 End: June 29, 2025 Goals (unrecognized section and content) Goals may be documented in a n alternate sectionNo InformationNo InformationNo InformationNo InformationNo InformationNo InformationNo InformationNo InformationNo InformationNo InformationNo InformationNo InformationNo InformationNo InformationNo InformationNo InformationNo InformationNo InformationNo InformationNo InformationNo InformationGoals may be documented in an alternate sectionGoals may be documented in an alternate sectionGoals may be documented in an alternate sectionGoals may be documented in an alternate sectionGoals may be documented in an alternate sectionGoals may be documented in an alternate sectionGoals may be documented in an alternate sectionGoals may be documented in an alternate sectionGoals may be documented in an alternate sectionGoals may be documented in an alternate sectionGoals may be documented in an alternate sectionGoals may be documented in an alternate section Source Comments (unrecognize d section and content) In the event this informatio n is protected by the Federal Confidentiality of Alcohol and Drug Abuse Patient Records regulations: The Federal rules restrict any use of the information to criminally investigate or prosecute any alcohol or drug abuse patient.[facility] CenterIn the event this information is protected by the Federal Confidentiality of Alcohol and Drug Abuse Patient Records regulations: The Federal rules restrict any use of the information to criminally investigate or prosecute any alcohol or drug abuse patient.[facility] CenterIn the event this information is protected by the Federal Confidentiality of Alcohol and Drug Abuse Patient Records regulations: The Federal rules restrict any use of the information to criminally investigate or prosecute any alcohol or drug abuse patient.[facility] CenterIn the event this information is protected by the Federal Confidentiality of Alcohol and Drug Abuse Patient Records regulations: The Federal rules restrict any use of the information to criminally investigate or prosecute any alcohol or drug abuse patient.[facility] CenterIn the event this information is protected by the Federal Confidentiality of Alcohol and Drug Abuse Patient Records regulations: The Federal rules restrict any use of the information to criminally investigate or prosecute any alcohol or drug abuse patient.[facility] CenterIn the event this information is protected by the Federal Confidentiality of Alcohol and Drug Abuse Patient Records regulations: The Federal rules restrict any use of the information to criminally investigate or prosecute any alcohol or drug abuse patient.[facility] CenterIn the event this information is protected by the Federal Confidentiality of Alcohol and Drug Abuse Patient Records regulations: The Federal rules restrict any use of the information to criminally investigate or prosecute any alcohol or drug abuse patient.[facility] CenterIn the event this information is protected by the Federal Confidentiality of Alcohol and Drug Abuse Patient Records regulations: The Federal rules restrict any use of the information to criminally investigate or prosecute any alcohol or drug abuse patient.[facility] CenterIn the event this information is protected by the Federal Confidentiality of Alcohol and Drug Abuse Patient Records regulations: The Federal rules restrict any use of the information to criminally investigate or prosecute any alcohol or drug abuse patient.[facility] CenterIn the event this information is protected by the Federal Confidentiality of Alcohol and Drug Abuse Patient Records regulations: The Federal rules restrict any use of the information to criminally investigate or prosecute any alcohol or drug abuse patient.[facility] CenterIn the event this information is protected by the Federal Confidentiality of Alcohol and Drug Abuse Patient Records regulations: The Federal rules restrict any use of the information to criminally investigate or prosecute any alcohol or drug abuse patient.[facility] CenterIn the event this information is protected by the Federal Confidentiality of Alcohol and Drug Abuse Patient Records regulations: The Federal rules restrict any use of the information to criminally investigate or prosecute any alcohol or drug abuse patient.[facility] CenterIn the event this information is protected by the Federal Confidentiality of Alcohol and Drug Abuse Patient Records regulations: The Federal rules restrict any use of the information to criminally investigate or prosecute any alcohol or drug abuse patient.[facility] CenterIn the event this information is protected by the Federal Confidentiality of Alcohol and Drug Abuse Patient Records regulations: The Federal rules restrict any use of the information to criminally investigate or prosecute any alcohol or drug abuse patient.[facility] CenterIn the event this information is protected by the Federal Confidentiality of Alcohol and Drug Abuse Patient Records regulations: The Federal rules restrict any use of the information to criminally investigate or prosecute any alcohol or drug abuse patient.[facility] CenterIn the event this information is protected by the Federal Confidentiality of Alcohol and Drug Abuse Patient Records regulations: The Federal rules restrict any use of the information to criminally investigate or prosecute any alcohol or drug abuse patient.[facility] CenterIn the event this information is protected by the Federal Confidentiality of Alcohol and Drug Abuse Patient Records regulations: The Federal rules restrict any use of the information to criminally investigate or prosecute any alcohol or drug abuse patient.[facility] CenterIn the event this information is protected by the Federal Confidentiality of Alcohol and Drug Abuse Patient Records regulations: The Federal rules restrict any use of the information to criminally investigate or prosecute any alcohol or drug abuse patient.[facility] CenterIn the event this information is protected by the Federal Confidentiality of Alcohol and Drug Abuse Patient Records regulations: The Federal rules restrict any use of the information to criminally investigate or prosecute any alcohol or drug abuse patient.[facility] CenterIn the event this information is protected by the Federal Confidentiality of Alcohol and Drug Abuse Patient Records regulations: The Federal rules restrict any use of the information to criminally investigate or prosecute any alcohol or drug abuse patient.[facility] CenterIn the event this information is protected by the Federal Confidentiality of Alcohol and Drug Abuse Patient Records regulations: The Federal rules restrict any use of the information to criminally investigate or prosecute any alcohol or drug abuse patient.[facility] Reason for Visit (unrecogniz ed section and content) ReasonCommentsRadio Gen RMPSpecialtyDiagnoses / ProceduresReferred By Contact Referred To ContactXR IMAGING Diagnoses Osteochondritis dissecans of right talus Procedures XR ANKLE GENERAL 3V AP/LAT/OBL RIGHT RADEX ANKLE COMPLETE MINIMUM [address] [place] [address] [place] [address] [place] [address] Referral IDStatusReasonStart DateExpiration DateVisits RequestedVisits [id number] Auto-Generated Referral /[id number] VisitReasonComments ResultsPreparations For SurgeryReasonOnset DateCommentsRefill [id number]/27/2022 ReasonCommentsPatient QuestionReasonCommentsPost OpWound CheckSuture Removal ReasonCommentspost op right ankle swelling and painReasonCommentsPost OpReason CommentsPatient UpdateReasonCommentsPatient UpdateRequested a letterReason CommentsFollow UpReasonCommentsReturn To Work LetterReasonCommentsElectronic CommunicationPT order faxed todayReasonCommentsRadiology XRReferral IDStatus ReasonStart DateExpiration DateVisits RequestedVisits [id number] Auto-Generated Referral FOR RECORDS PERTAINING TO PATIENTS WHO ARE [...] BE BASED ON THE PRIMARY CLINICAL RECORDS. [employer] provides no warranty or guarantee of the accuracy or completeness of information in this document.
[2025-09-15 12:23] VITALS: PULSE 62
[2025-09-15 12:24] LABS: Hematocrit 38.6 % (36.0-48.0); Hemoglobin 13.1 g/dL (12.0-16.0); Immature Granulocytes Abs Auto 0.01 10^3/uL (0.00-0.03); Immature Granulocytes Pct Auto 0.1 % (0.0-0.5); Lymphocytes Absolute Auto 3.3 10^3/uL (1.2-3.8); Mean Corpuscular HGB Conc 33.9 g/dL (29.9-35.2); Mean Corpuscular Hemoglobin 31.0 pg (26.7-34.0); Mean Corpuscular Volume 91.5 fL (81.0-99.0); Platelet Count 373 10^3/uL (150-450); Red Blood Count 4.22 10^6/uL (4.20-5.40); White Blood Count 7.8 10^3/uL (4.0-11.0)
--- NOTE | 2025-09-15 12:25 | ED.GENADUL1 ---
HPI HPI - General Adult General Chief complaint: Shortness of Breath/Dyspnea Stated complaint: SOB L SIDE PAIN Time Seen by Provider: 09/15/25 12:00 Source: patient Mode of arrival: walk-in History of Present Illness HPI narrative: 30-year-old female presents for left-sided chest pain and feeling short of breath. It is worse when she takes a deep breath and she has had it for few days. It is only on the left side. No trauma or fever or productive cough. No hemoptysis. She states that heart problems run in her family and she was concerned and her mother wanted her to come in to get checked. Related Data Allergies Allergy/AdvReac Type Severity Reaction Status Date / Time naproxen (From Aleve) Allergy Severe Hives Verified 09/15/25 12:02 latex Allergy cancker Verified 09/15/25 12:02 sores Opioid HPI Opioid Management Most Recent Opioid Data: Last Pain Scale 8 Today, 12:03 Ur Phencyclidine Scrn, (NEGATIVE) Negative 04/13/24, 05:20 Review of Systems ROS Narrative A ten point review of systems is negative except as noted above. PFSH PFSH Medical History Frequent headaches ?R51.9 - Headache, unspecified (ICD-10) GERD (gastroesophageal reflux disease) ?K21.9 - Gastro-esophageal reflux disease without esophagitis (ICD-10) Seizures ?R56.9 - Unspecified convulsions (ICD-10) Irregular heart beat ?I49.9 - Cardiac arrhythmia, unspecified (ICD-10) PVC (premature ventricular contraction) ?I49.3 - Ventricular premature depolarization (ICD-10) Anemia ?D64.9 - Anemia, unspecified (ICD-10) Depression ?F32.A - Depression, unspecified (ICD-10) Anxiety ?F41.9 - Anxiety disorder, unspecified (ICD-10) Surgical History Hx of section ?Z98.891 - History of uterine scar from previous surgery (ICD-10) Hx of tonsillectomy ?Z90.89 - Acquired absence of other organs (ICD-10) History of ankle surgery ?Z98.890 - Other specified postprocedural states (ICD-10) Family History Grandmother Family history of CHF (congestive heart failure) Family history of diabetes mellitus Atrial fibrillation Grandfather Family history of CHF (congestive heart failure) Family history of hypertension Aunt Family history of myocardial infarction Uncle Family history of stroke Atrial fibrillation Brother Cerebral palsy Social History Within the past year, how often did you have a drink containing alcohol: never Within the past year, how often did you have six or more drinks on one occasion: never Score interpretation: A score less than 3 is consistent with normal alcohol consumption. Smoking status: Former smoker Non-prescribed substance use: denies use Highest level of school completed/degree received: high school graduate Are you now , , , , never or living with a partner: living with partner In a typical week, how many times do you talk on the telephone with family, friends, or neighbors: 3 or more times per week How often do you get together with friends or relatives: 3 or more times per week Little interest or pleasure in doing things: not at all Feeling down, depressed, or hopeless: not at all Do you think of yourself as: straight/heterosexual Gender Identity: female Exam Narrative Exam Narrative: Nurses note and vital signs reviewed General:The patient appears well and in no apparent distress.Patient is resting comfortably on cart. Skin:Warm, dry, no pallor noted.There is no rash noted. Head:Normocephalic, atraumatic Eye: Normal conjunctiva, no drainage Ears, Nose, Mouth, and Throat: oral mucosa is moist. Nares patent. Cardiovascular:Regular Rate and Rhythm, not tachycardic Respiratory:Patient is in no distress, no accessory muscle use, lungs are clear to auscultation, no wheezing, rales or rhonchi. No crepitus bruise or rash on her chest wall Back:non-tender GI: Soft and nontender Musculoskeletal: The patient has no evidence of calf tenderness, no pitting edema, symmetrical pulses noted bilaterally Neurological:A&O, normal speech Psychiatric:Cooperative Constitutional Vital Signs, click to edit/add: Last Vital Signs Temp 97.8 F 09/15/25 12:03 Pulse 65 09/15/25 12:03 Resp 16 09/15/25 12:03 BP 174/83 H 09/15/25 12:03 Pulse Ox 99 09/15/25 12:03 O2 Del Method Room Air 09/15/25 12:03 Course Vital Signs Vital signs: Vital Signs Temperature 97.8 F 09/15/25 12:03 Pulse Rate 65 09/15/25 12:03 Respiratory Rate 16 09/15/25 12:03 Blood Pressure 174/83 H 09/15/25 12:03 Pulse Oximetry 99 09/15/25 12:03 Oxygen Delivery Method Room Air 09/15/25 12:03 Temperature 97.8 F 09/15/25 12:03 Pulse Rate 65 09/15/25 12:03 Respiratory Rate 16 09/15/25 12:03 Blood Pressure 174/83 H 09/15/25 12:03 Pulse Oximetry 99 09/15/25 12:03 Oxygen Delivery Method Room Air 09/15/25 12:03 Medical Decision Making MDM Narrative Medical decision making narrative: Her workup including troponin and D-dimer is negative. The rest of her workup is negative as well. I suspect that this may be muscular pain. Findings are discussed with the patient and she is discharged home. Treatment diagnosis and follow-up were discussed with the patient. Differential Diagnosis Differential Diagnosis: Muscle strain, MT, PE, pneumothorax Lab Data Lab results reviewed: Yes I reviewed the patient's lab results Labs: Lab Results 09/15/25 Range/Units 12:17 WBC 7.8 (4.0-11.0) 10^3/uL RBC 4.22 (4.20-5.40) 10^6/uL Hgb 13.1 (12.0-16.0) g/dL Hct 38.6 (36.0-48.0) % MCV 91.5 (81.0-99.0) fL MCH 31.0 (26.7-34.0) pg MCHC 33.9 (29.9-35.2) g/dL RDW 12.8 (11.0-15.0) % Plt Count 373 (150-450) 10^3/uL MPV 9.4 L (9.5-13.5) fL Neut % (Auto) 49.6 (43.0-75.0) % Lymph % (Auto) 42.4 (20.5-60.0) % [place] % (Auto) 6.8 (1.7-12.0) % Eos % (Auto) 1.0 (0.9-7.0) % Baso % (Auto) 0.1 L (0.2-2.0) % Neut # (Auto) 3.9 (1.4-6.5) 10^3/uL Lymph # (Auto) 3.3 (1.2-3.8) 10^3/uL [place] # (Auto) 0.5 (0.3-0.8) 10^3/uL Eos # (Auto) 0.1 (0.0-0.7) 10^3/uL Baso # (Auto) 0.0 (0.0-0.1) 10^3/uL Abs Immat Gran (auto) 0.01 (0.00-0.03) 10^3/uL Imm/Tot Granulo (auto) 0.1 (0.0-0.5) % D-Dimer 0.22 (<=0.59) mg/L FEU Sodium 139 (136-145) mmol/L Potassium 3.9 (3.5-5.1) mmol/L Chloride 106 (98-107) mmol/L Carbon Dioxide 28.5 (21.0-32.0) mmol/L Anion Gap 8.4 BUN 20.0 H (7.0-18.0) mg/dL Creatinine 0.71 (0.55-1.02) mg/dL Est GFR ( Amer) >60 (>=60 mL/min/1.73m^2) Est GFR (Non-Af Amer) >60 (>=60 mL/min/1.73m^2) BUN/Creatinine Ratio 28.2 Glucose 99 (74-106) mg/dL Calcium 9.6 (8.5-10.1) mg/dL Troponin I High Sens <4.0 L (4.0-51.3) pg/mL Imaging Data Chest x-ray: Radiologist's impression: ITS Impressions Chest X-Ray 09/15/25 12:09 IMPRESSION: No acute cardiopulmonary pathology. Impression dictated by: Keaton Brooks M.D. 09/15/2025 12:32 PM Dictation Location: [facility] Electronically authenticated by: [id number] Y Date: 09/15/2025 12:32 ECG Data Attestation: I personally reviewed and interpreted this ECG as follows: (EKG on my interpretation shows sinus rhythm with a rate of 60 and no acute changes) Discharge Plan Discharge Chief Complaint: Shortness of Breath/Dyspnea Clinical Impression: Chest pain Patient Disposition: Home, Self-Care Time of Disposition Decision: 13:03 Condition: Good Print Language: Greek Instructions: Chest Pain (ED), Chest Wall Pain (ED) Referrals: CHARBEL RODRIGUEZ [Primary Care Provider, Family Practice] - 1 week
[2025-09-15 12:41] LABS: Anion Gap 8.4; Blood Urea Nitrogen 20.0 mg/dL (7.0-18.0); Calcium 9.6 mg/dL (8.5-10.1); Carbon Dioxide 28.5 mmol/L (21.0-32.0); Chloride 106 mmol/L (98-107); Estimated GFR (African America >60 (>=60 mL/min/1.73m^2); Estimated GFR (Non-African Ame >60 (>=60 mL/min/1.73m^2); Glucose 99 mg/dL (74-106); Potassium 3.9 mmol/L (3.5-5.1); Sodium 139 mmol/L (136-145)
[2025-09-15 13:15] VITALS: BP 132/74
== END 2025-09-15 13:17 | disposition home or self-care (01) ==
PROVIDERS: Emergency Provider Emergency Medicine; PCP Family Medicine
DX: R07.9 Chest pain, unspecified (principal); Z87.891 Personal history of nicotine dependence
CPT/HCPCS: 36415; 71045; 80048; 84484; 85025; 85378; 93005; 99285